=== PATIENT | male | born 1945 | race Caucasian/White ===

== ENCOUNTER 2023-03-22 15:06 | Outpatient (OUT) | payer MEDICARE, OTHER, SELFPAY ==
[2023-03-22 07:22] LABS: Basophils Percent Auto 0.4 % (0.2-2.0); Eosinophils Absolute Auto 0.2 10^3/uL (0.0-0.7); Eosinophils Percent Auto 3.1 % (0.9-7.0); Hematocrit 45.7 % (42.0-54.0); Hemoglobin 14.5 g/dL (14.0-18.0); Immature Granulocytes Abs Auto 0.01 10^3/uL (0.00-0.03); Immature Granulocytes Pct Auto 0.2 % (0.0-0.5); Lymphocytes Absolute Auto 2.6 10^3/uL (1.2-3.8); Lymphocytes Percent Auto 47.1 % (20.5-60.0); Mean Corpuscular HGB Conc 31.7 g/dL (29.9-35.2); Mean Corpuscular Hemoglobin 29.8 pg (25.9-34.0); Mean Platelet Volume 10.5 fL (9.5-13.5); Monocytes Absolute Auto 0.7 10^3/uL (0.3-0.8); Neutrophils Percent Auto 36.2 % (43.0-75.0); Platelet Count 127 10^3/uL (150-450); Red Blood Count 4.86 10^6/uL (4.70-6.10); Red Cell Distribution Width 13.2 % (11.0-15.0); White Blood Count 5.5 10^3/uL (4.0-11.0)
[2023-03-22 08:24] LABS: Alanine Aminotransferase 29 U/L (16-63); Albumin Level 3.9 g/dL (3.4-5.0); Alkaline Phosphatase 97 U/L (46-116); Anion Gap 8.1; Aspartate Amino Transferase 25 U/L (15-37); BUN Creatinine Ratio 24.8; Bilirubin Total 1.1 mg/dL (0.2-1.0); Calcium 9.7 mg/dL (8.5-10.1); Carbon Dioxide 31.5 mmol/L (21.0-32.0); Chloride 104 mmol/L (98-107); Estimated GFR (African America >60 (>=60); Estimated GFR (Non-African Ame >60 (>=60); Globulin 3.9 g/dL; Glucose 91 mg/dL (74-106); Potassium 3.6 mmol/L (3.5-5.1); Sodium 140 mmol/L (136-145); Total Protein 7.8 g/dL (6.4-8.2)
== END 2023-03-22 15:07 | disposition home or self-care (01) ==
LOC: LAB 03-25 15:07
PROVIDERS: PCP Family Medicine
DX: Z79.899 Other long term (current) drug therapy (principal)
CPT/HCPCS: 36415; 80053; 85025

== ENCOUNTER 2023-05-17 08:20 | Outpatient (OUT) | payer MEDICARE, OTHER, SELFPAY ==
--- NOTE | 2023-05-17 08:38 | CA_ITS ---
[facility] Test Date: 2023-05-31 Pat Name: BRITTA TORRES Department: Room: - Gender: Male Travel Pt: : 1945 Requested By: RACHEL ONTIVEORS Order Number: [id number] Reading MD: CEM CHANDLER Interpretive Statements Predominant rhythm is atrial flutter w/ variable AV block Tachycardia - max rate of 135 bpm Bradycardia - min rate of 43 bpm Ventricular ectopy - 19 total (<1% total) - 17 PVC - 2 couplets Patient triggered events: 1 - associated with symptoms of palpitations - associated with rate of 83 bpm Impression: Predominant rhythm is atrial flutter w/ variable AV block Fastest rate of 135 bpm and slowest rate of 43 bpm 17 PVC and 1 couplet No pauses Electronically Signed On 06-02-2023 12:03:44 EST by CEM CHANDLER
== END 2023-05-17 08:21 | disposition home or self-care (01) ==
LOC: CARD 08:20
PROVIDERS: PCP Family Medicine; Visit Provider Family Medicine
DX: I35.8 Other nonrheumatic aortic valve disorders (principal); I51.7 Cardiomegaly; R01.1 Cardiac murmur, unspecified; I48.11 Longstanding persistent atrial fibrillation; I25.10 Atherosclerotic heart disease of native coronary artery without angina pectoris; R00.2 Palpitations
CPT/HCPCS: 93242

== ENCOUNTER 2023-09-03 08:24 | Outpatient (OUT) | payer MEDICARE, OTHER, SELFPAY ==
--- OUTSIDE RECORDS SUMMARY | 2023-09-03 08:29 | XMS_ITS | CCD ---
Author Name Unknown Address [address] [place] [address] Organization [facility] Care Team Providers Care Consumer Loan Manager Name Role Phone Austen Ontiveros Primary Care Provider AUSTEN ONTIVEROS Primary Care Physician [phone] Austen Ontiveros MD Primary Care Provider Ishaan DOWLING Attending Unavailable NILL, Ishaan Pierre Attending Unavailable AUSTEN ONTIVEROS Referring Unavail able NILL, Ishaan Pierre Attending Unavailable HEMEYER ., DR RAMOS Primary Care Unavailable HEMEYER ., DR RAMOS Admitting Unavailable HEMEYER ., DR RAMOS Attending Unavailable NILL ., DR QUIROS Attending Unavailable HEMEYER ., DR RAMOS Primary Care Unavailable NILL ., DR QUIROS Admitting Unavailable NILL ., DR QUIROS Consulting Unavailable HEMEYER ., DR RAMOS Primary Care Unavailable REQUEST, DR ANTONIO LISTED Consulting Unavaila ble REQUEST, DR ANTONIO LISTED Admitting Unavaila ble REQUEST, DR ANTONIO LISTED Attending Unavaila ble NILL ., DR QUIROS Admitting Unavailable NILL ., DR QUIROS Attending Unavailable HEMEYER ., DR RAMOS Primary Care Unavailable NILL ., DR QUIROS Consulting Unavailable BHARAT, MARE Consulting Unavailable GEMBUS, YEHUDA Consulting Unavailable HEMEYER ., DR RAMOS Primary Care Unavailable HEMEYER ., DR RAMOS Admitting Unavailable HEMEYER ., DR RAMOS Attending Unavailable HEMEYER ., DR RAMOS Consulting Unavailable HEMEYER ., DR RAMOS Consulting Unavailable HEMEYER ., DR RAMOS Primary Care Unavailable HEMEYER ., DR RAMOS Admitting Unavailable HEMEYER ., DR RAMOS Attending Unavailable HEMEYER ., DR RAMOS Primary Care Unavailable HEMEYER ., DR RAMOS Admitting Unavailable HEMEYER ., DR RAMOS Attending Unavailable HEMEYER ., DR RAMOS Consulting Unavailable HEMEYER, AUSTEN Parker Attending Unavailable HEMEYER, EDWARD DINORAH [facility] UnavailEVER Murphy Attending Unavailable AMY SUBRAMANIAN Attending Unavailable EUGENEMIKE AUSTEN [facility] Referring Unavailable EVER GOLDBERG Attending Unavailable DHARMESH BAGLEY Referring Unavailable DHARMESH BAGLEY Attending Unavailable EUGENEMIKEAUSTEN [facility] UnavailEVER Murphy Referring Unavailable RAMA AUSTEN COPELAND [facility] UnavailAusten Campos MD Unavailable [phone] Austen Ontiveros MD Primary Care Provider Allergies Allergy Classification Reported Allergen(s) Allergy Type Date of Onset Reaction(s) Facility (15 sources) Chlorpheniramine / Pseudoephedrine; Translations: [CHLORPHENIRAMINE-P SEUDOEPHED] Drug Allergy 07-20-19 14 Unknown [facility] Work Phone: (17 sources) Niacin; Translations: [niacin] Drug Allergy 07-20-19 14 Unknown, Blushing, function (observable entity) [facility] Work Phone: (13 sources) rosuvastatin; Translations: [ROSUVASTATIN] Drug Allergy 08-23-19 22 Other: See Comments [facility] (15 sources) Sulfamethoxazole / Trimethoprim; Translations: [SULFAMETHOXAZOLE-T RIMETHOPRIM] Drug Allergy 07-20-19 14 Unknown [facility] Work Phone: (4 sources) Chlorpheniramine; Translations: [chlorpheniramine] Drug Allergy 12-27-19 23 Bladder retention of urine (observable entity) [facility] (3 sources) guaiFENesin / HYDROcodone / Pseudoephedrine; Translations: [guaifenesin/hydroc odone/pseudoephedri ne] Drug Allergy Bladder retention of urine (observable entity) [facility] [place] (4 sources) HMG-CoA reductase inhibitor; Translations: [statins] Drug allergy 12-27-19 23 Unknown (qualifier value) [facility] [place] (3 sources) Sulfamethoxazole; Translations: [sulfamethoxazole] Drug Allergy Constipation (disorder) [facility] [place] (4 sources) Trimethoprim; Translations: [trimethoprim] Drug Allergy 12-27-19 Unknown (qualifier value) [facility] [place] (1 source) Niacin; Translations: [Niaspan ER] Drug Allergy [facility] Repository (1 source) black walnut pollen extract Drug Allergy [facility] Repository (1 source) Chlorpheniramine Drug Allergy [facility] Repository (1 source) Chlorpheniramine / Pseudoephedrine Drug Allergy 05-25-20 13 [facility] Repository (1 source) Niacin Drug Allergy 05-25-20 13 [facility] Repository (1 source) Sulfamethoxazole / Trimethoprim Drug Allergy 05-25-20 13 [facility] Repository (1 source) Sulfonamides (Antibiotic) Drug allergy (disorder) 05-25-20 13 [facility] Repository (1 source) Trimethoprim Drug Allergy [facility] Rep[facility] (1 source) Niacin Drug Allergy 12-27-19 [facility] (1 source) Pseudoephedrine Drug Allergy 12-27-19 [facility] (1 source) Sulfamethoxazole Allergy to substance 12-27-19 [facility] Medications Current Medications Medication Drug Class(es) Dates Sig (Normalized) Sig (Original) amLODIPine 2.5 mg oral tablet (3 sources) Dihydropyridine Calcium Channel Beth Start: 09-29-2021 End: 01-18-2022 take 1 tablet by mouth once daily amLODIPine (NORVASC) 2.5 mg tablet Take 1 tablet by mouth once daily. 90 tablet 3 09/29/2021 01/18/2022 Discontinued (Discontinued by another Health Care Provider) Comment on above: Take 1 tablet by primo th once daily. apixaban 5 mg oral tablet (17 sources) Factor Xa Inhibitor Start: 11-24-2021 End: 03-04-2023 take 1 tablet by mouth in the morning Eliquis 5 MG tablet Take 5 mg by mouth in the morning and 5 mg before bedtime. 0 11/21/2022 Active Comment on above: Take 1 tablet by primo th twice daily. TAKE 1 TABLET BY PRIMO TH TWICE A DAY CHELATED IRON PO (1 source) CHELATED IRON PO Take by mouth. 0 Active fexofenadine hydrochloride 180 mg oral tablet (14 sources) Histamine-1 Receptor Antagonist Start: 09-22-2013 End: 06-07-2023 take 1 tablet by mouth once daily Sarah 180 mg Tab 1 TAB, Oral, Daily, Refills(s) 0, Allergy symptoms Start Date: 09/22/13 Status: Ordered Comment on above: Take 180 mg by mouth once daily. Fish Oils (3 sources) Start: 05-11-2022 take 1 capsule by mouth once daily Fish Oil 1200 mg oral capsule 1,200 mg = 1 cap(s), Oral, Daily, Refills(s) 0 Start Date: 05/11/22 Status: Ordered take 1 capsule by mouth once sally ly omega-3 (Fish Oil) 1200 MG capsule Take 1 capsule by mouth 1 (one) time each day at the same time. 0 Active metoprolol tartrate 25 mg oral tablet (1 source) beta-Adrenergic Beth End: 01-18-2022 take 1 tablet by mouth twice daily metoprolol tartrate, short acting, (LOPRESSOR) 25 mg tablet Take 25 mg by mouth twice daily. 0 01/18/2022 Discontinued Comment on above: Take 25 mg by mouth twice daily. montelukast 10 mg oral tablet (16 sources) Leukotriene Receptor Antagonist Start: 09-22-2013 End: 08-20-2023 take 1 tablet by mouth once daily montelukast (Singulair) 10 MG tablet Indications: Mild persistent asthma without complication (CMS/HCC) Take 1 tablet (10 mg) by mouth 1 (one) time each day at the same time. 90 tablet 1 02/21/2023 08/20/2023 Active Comment on above: Take 10 mg by mouth daily at bedtime. Multivitamins and Minerals (2 sources) Start: 09-22-2013 take 1 tablet by mouth once daily Multivitamins and Minerals 1 TAB, Oral, Daily, Refill(s) 0, Prophylaxis Start Date: 09/22/13 Status: Ordered perflutren lipid microspheres 1.3 mL in NaCl (PF) 0.9% 10 mL injection (DEFINITY) (9 sources) Start: 08-23-2021 End: 11-22-2022 perflutren lipid microspheres 1.3 mL in NaCl (PF) 0.9% 10 mL injection (DEFINITY) rosuvastatin calcium 20 mg oral tablet (16 sources) HMG-CoA Reductase Inhibitor Start: 02-21-2023 End: 08-20-2023 take 1 tablet by mouth at bedtime rosuvastatin (Crestor) 20 MG tablet Indications: Mixed dyslipidemia (CMS/HCC) Take 1 tablet (20 mg) by mouth at bedtime. 90 tablet 1 02/21/2023 08/20/2023 Active Start: 10-20-2022 take 1 tablet by primo th once daily rosuvastatin (CRESTOR) 10 mg tablet Take 1 tablet by mouth once daily. 90 tablet 3 10/20/2022 Active Start: 05-11-2022 take 1 tablet by primo th once daily rosuvastatin 20 mg Tab 20 mg = 1 tab(s), Oral, Daily, Refills(s) 0 Start Date: 05/11/22 Status: Ordered Start: 08-23-2021 take 1 tablet by primo th once daily rosuvastatin (CRESTOR) 10 mg tablet Take 1 tablet by mouth once daily. 0 08/23/2021 Active Comment on above: Take 1 tablet by primo once daily. 125 ml sodium chloride 9 mg/ml prefilled syringe (9 sources) Start: 2 End: 3 sodium chloride 0.9 % (flush) 10 mL (BD POSIFLUSH) tamsulosin hydrochloride 0.4 mg oral capsule (16 sources) alpha-Adrenergic Beth Start: 3 End: 4 take 1 capsule by mouth every twenty-four hours at bedtime tamsulosin (Flomax) 0.4 MG 24 hr capsule Indications: Benign prostatic hyperplasia with urinary hesitancy Take 1 capsule (0.4 mg) by mouth at bedtime. 90 capsule 1 02/21/2023 08/20/2023 Active Start: 05-11-2022 take 1 capsule [facility] Flomax 0.4 mg Cap 0.4 mg = 1 cap(s), Oral, Daily, Refills(s) 0 Start Date: 05/11/22 Status: Ordered Comment on above: Take 0.4 mg by mouth once daily. Vitamin D3 (2 sources) Start: 12-01-2014 Vitamin D3 2,0 00 International_Unit, Oral, Daily, Refills(s) 0 Start Date: 12/01/14 Status: Ordered Completed/Discontinued Medications Medication Drug Class(es) Dates Sig (Normalized) Sig (Original) acetaminophen 325 mg oral tablet (13 sources) Start: 06-29-2021 take 325-650 mg by mouth every four hours as needed acetaminophen (TYLENOL) 325 mg tablet Take 1-2 tablets by mouth every 4 hours as needed for mild to moderate pain 30 tablet 0 06/29/2021 Active Comment on above: Take 1-2 tablets by mouth every 4 hours as needed for mild to moderate pain aspirin 81 mg delayed release oral tablet (16 sources) Platelet Aggregation Inhibitor, Nonsteroidal Anti-inflammatory Drug Start: 06-07-2023 take 1 tablet by mouth every other day aspirin, enteric coated (ADULT LOW DOSE ASPIRIN) 81 mg EC tablet Take 1 tablet by mouth every other day. 0 06/07/2023 Active Start: 03-30-2021 End: 06-07-2023 take 1 tablet by mouth once daily aspirin, enteric coated (ADULT LOW DOSE ASPIRIN) 81 mg EC tablet Take 1 tablet by mouth once daily. 30 tablet 4 03/30/2021 06/07/2023 Discontinued Comment on above: Take 1 tablet by primo th once daily. Take 1 tablet by primo th every other day. bisoprolol fumarate 10 mg oral tablet (17 sources) beta-Adrenergic Beth Start: 10-20-2022 End: 03-04-2023 take 2 tablets by mouth once daily bisoprolol (ZEBETA) 10 mg tablet Take 2 tablets by mouth once daily. 180 tablet 3 03/04/2023 Active Start: 03-17-2022 End: 04-11-2022 take 2 tablets by mouth once daily bisoprolol (ZEBETA) 10 mg tablet TAKE 2 TABLETS BY MOUTH EVERY DAY 60 tablet 3 04/11/2022 Active Start: 03-01-2022 take 1.5 tablets by mouth once daily bisoprolol (ZEBETA) 10 mg tablet Take 1.5 tablets by mouth once daily. 90 tablet 3 03/01/2022 Active Start: 01-18-2022 End: 03-01-2022 take 1 tablet by mouth once daily bisoprolol (ZEBETA) 10 mg tablet Take 1 tablet by mouth once daily. 90 tablet 3 01/18/2022 03/01/2022 Discontinued Comment on above: Take 1 tablet by primo th once daily. Take 1.5 tablets by mouth once daily. TAKE 2 TABLETS BY MO UT EVERY DAY Take 2 tablets by mo [facility] once daily. Calcium Carbonate / vitamin D3 (13 sources) take 2000 [IU] by mouth twice daily CALCIUM CARBONATE/VITAMIN D3 (VITAMIN D-3 ORAL) Take 2,000 Units by mouth twice daily. 0 Active Comment on above: Take 2,000 Units by mouth twice daily. ferrous sulfate (7 sources) ferrous sulfate (IRON ORAL) Take by mouth. 0 Active Comment on above: Take by mouth. MULTIVIT &MINERALS/FERROUS FUM (MULTI VITAMIN ORAL) (13 sources) MULTIVIT &MINERALS/FERROUS FUM (MULTI VITAMIN ORAL) Take by mouth once daily. 0 Active Comment on above: Take by mouth once d aily. [place]-3 Fatty Acids-Vitamin E (FISH OIL) 1,000 mg cap (3 sources) take 1 capsule by mouth twice daily [place]-3 Fatty Acids-Vitamin E (FISH OIL) 1,000 mg cap Take 1 capsule by mouth twice daily. 0 Active Comment on above: Take 1 capsule by mo uth twice daily. [place]-3 Fatty Acids-Vitamin E 1,000 mg cap (10 sources) take 1 capsule by mouth twice daily [place]-3 Fatty Acids-Vitamin E 1,000 mg cap Take 1 capsule by mouth twice daily. 0 Active Comment on above: Take 1 capsule by mo uth twice daily. Problems Active Problems Problem Classification Problem Date Documented Da te Episodic/Chronic Adjustment disorders (1 source) Adjustment disorder with mixed emotional features; Translations: [Adjustment disorder with other symptoms] Onset: 04-08-2017 01-15-2023 Chronic Asthma (4 sources) Asthma; Translations: [Unspecified asthma, uncomplicated] Onset: 06-17-2022 09-22-2013 Chronic Cardiac dysrhythmias (20 sources) Chronic atrial fibrillation; Translations: [Chronic atrial fibrillation, unspecified] Onset: 05-18-2013 06-29-2021 Chronic Cataract (3 sources) Bilateral age-related nuclear cataracts; Translations: [Age-related nuclear cataract, bilateral] Onset: 05-30-2015 12-26-2022 Chronic Conduction disorders (3 sources) Right bundle branch block; Translations: [Unspecified right bundle-branch block] Onset: 12-26-2022 05-11-2022 Chronic Congestive heart failure; nonhypertensive (4 sources) Chronic diastolic heart failure; Translations: [Chronic diastolic (congestive) heart failure] Onset: 01-18-2022 Chronic Coronary atherosclerosis and other heart disease (20 sources) Coronary atherosclerosis; Translations: [Atherosclerotic heart disease of iroquois coronary artery with unspecified angina pectoris] Onset: 05-29-2021 06-29-2021 Chronic Disorders of lipid metabolism (20 sources) Hyperlipidemia; Translations: [Hyperlipidemia, unspecified] Onset: 05-29-2021 05-29-2021 Chronic Essential hypertension (20 sources) Hypertensive disorder; Translations: [Essential (primary) hypertension] Onset: 11-23-2013 06-29-2021 Chronic Heart valve disorders (20 sources) Aortic valve stenosis; Translations: [Nonrheumatic aortic (valve) stenosis] Onset: 05-29-2021 06-29-2021 Chronic Hyperplasia of prostate (18 sources) Lower urinary tract symptoms due to benign prostatic hypertrophy; Translations: [Benign prostatic hyperplasia with lower urinary tract symptoms] Onset: 04-18-2018 05-29-2021 Chronic Nutritional deficiencies (3 sources) Vitamin D deficiency; Translations: [Vitamin D deficiency, unspecified] Onset: 12-26-2022 05-11-2022 Chronic Osteoarthritis (2 sources) Degenerative joint disease involving multiple joints; Translations: [Polyosteoarthritis, unspecified] Onset: 05-28-2016 12-26-2022 Chronic Other aftercare (1 source) Patient encounter status; Translations: [Other intermediate (current) drug therapy] Episodic Other and ill-defined heart disease (3 sources) Bilateral enlargement of atria; Translations: [Cardiomegaly] Onset: 12-26-2022 05-11-2022 Chronic Other circulatory disease (1 source) Disorder of carotid artery; Translations: [Disorder of arteries and arterioles, unspecified] Onset: 12-26-2022 12-26-2022 Chronic Other eye disorders (1 source) Vitreous degeneration of right eye; Translations: [Vitreous degeneration, right eye] Onset: 12-26-2022 12-26-2022 Chronic Other hematologic conditions (4 sources) Personal history of diseases of the blood and blood-forming organs and certain disorders involving the immune mechanism; Translations: [PERS HX DZ BLD/BLD-FRM ORG IMMN MCH] Onset: 10-09-2022 Episodic Other lower respiratory disease (3 sources) Post-inflammatory pulmonary fibrosis; Translations: [Pulmonary fibrosis, unspecified] Onset: 05-28-2016 05-11-2022 Chronic Other lower respiratory disease (3 sources) Pulmonary granuloma; Translations: [Pulmonary fibrosis, unspecified] Onset: 12-26-2022 05-11-2022 Chronic Other lower respiratory disease (1 source) Dyspnea; Translations: [Other forms of dyspnea] 08-09-2023 Episodic Other lower respiratory disease (1 source) Other forms of dyspnea; Translations: [Other forms of dyspnea] Onset: 08-09-2023 Episodic Pulmonary heart disease (19 sources) Pulmonary hypertension; Translations: [Pulmonary hypertension, unspecified] Onset: 05-18-2013 05-18-2013 Chronic Spondylosis; intervertebral disc disorders; other back problems (1 source) Prolapsed lumbar intervertebral disc; Translations: [Other intervertebral disc displacement, lumbar region] Onset: 12-26-2022 12-26-2022 Chronic Unclassified (2 sources) Body mass index 20-24 - normal 05-22-2022 Unclassified (2 sources) Drug therapy finding 05-11-2022 Unclassified (2 sources) Polypharmacy 05-11-2022 Unclassified (1 source) CONTACT W/AND (SUSP) EXPOS COVID-19; Translations: [CONTACT W/AND (SUSP) EXPOS COVID-19] Onset: 06-16-2022 Past or Other Problems Problem Classification Problem Date Documented Da te Episodic/Chronic Acute and unspecified renal failure (13 sources) Acute injury of kidney; Translations: [Acute kidney failure, unspecified] Onset: 06-22-2021 06-29-2021 Episodic Administrative/social admission (20 sources) Discharge status; Translations: [Encounter for administrative examinations, unspecified] Onset: 05-29-2021 06-28-2021 Episodic Anxiety disorders (3 sources) Mixed anxiety and depressive disorder; Translations: [Adjustment disorder with mixed anxiety and depressed mood] Onset: 12-26-2022 Resolved: 01-02-2023 05-11-2022 Chronic Deficiency and other anemia (4 sources) Iron deficiency anemia, unspecified; Translations: [IRON DEFICIENCY ANEMIA UNSPECIFIED] Onset: 06-13-2022 Episodic Heart valve disorders (1 source) Heart murmur; Translations: [Cardiac murmur, unspecified] Onset: 12-26-2022 12-26-2022 Episodic Mood disorders (1 source) Mood disorders Onset: 01-02-2023 01-02-2023 Nutritional deficiencies (4 sources) Iron deficiency; Translations: [IRON DEFICIENCY] Onset: 04-25-2022 Episodic Other aftercare (1 source) prison (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 anticoagulants; Translations: [CAMPUS SECURITY DIRECTOR CURRNT USE ANTICOAGULANTS] Onset: 06-17-2022 Episodic Other aftercare (1 source) prison (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 aspirin; Translations: [SNF CURRENT USE OF ASPIRIN] Onset: 06-17-2022 Episodic Other aftercare (1 source) Other intermediate (current) drug therapy; Translations: [OTH SNF CURRENT DRUG THERAPY] Onset: 06-17-2022 Episodic Other aftercare (1 source) Long-term current use of anticoagulant; Translations: [prison (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 anticoagulants] Onset: 05-28-2016 01-15-2023 Episodic Other aftercare (1 source) Polypharmacy ; Translations: [Other tank terminal gauger (current) drug therapy] Onset: 08-11-2020 01-15-2023 Episodic Other bone disease and musculoskeletal deformities (1 source) Disorder of bone; Translations: [Other specified disorders of bone density and structure, right thigh] Onset: 12-26-2022 12-26-2022 Episodic Other lower respiratory disease (13 sources) Dyspnea on exertion; Translations: [Dyspnea, unspecified] Onset: 03-30-2021 03-30-2021 Episodic Other lower respiratory disease (3 sources) Nodule of lung; Translations: [Solitary pulmonary nodule] Onset: 12-26-2022 05-11-2022 Episodic Other nervous system disorders (13 sources) Postoperative pain ; Translations: [Other acute postprocedural pain] Onset: 06-19-2021 06-29-2021 Episodic Residual codes; unclassified (14 sources) History of cardioversion; Translations: [Other specified postprocedural states] Onset: 05-29-2021 05-29-2021 Episodic Residual codes; unclassified (1 source) Family history of coronary arteriosclerosis; Translations: [Family history of ischemic heart disease and other diseases of the circulatory system] Onset: 05-28-2016 01-15-2023 Episodic Residual codes; unclassified (2 sources) Other specified health status; Translations: [Other specified conditions influencing health status] Onset: 05-28-2016 01-15-2023 Episodic Results Test Name Value Interpretation Reference Range Facility [facility] NT-PROBNP [id number]-MCNCon 0 08-09-2023 Interpretation and review of laboratory results Abnormal [facility] Natriuretic peptide B (Bld) [Mass/Vol] 1619 pg/mL High NINF - 450 pg/mL [facility] Specimen Type: BLOOD SPECIMEN Ordering Facility: [facility] Address: [address] [place] [address] Original Ordering Provider: EVER SPRAGUE [facility] CNOVon 08-09-2023 CNOV Office Visit (CARDAV ) -------- BRITTA TORRES ([id number]) 1945 M Date Time Provider Department 08/09/23 9:20 AM EVER GOLDBERG During your visit today, we recorded the following information about you: Pulse Respiration Blood pressure Weight 62/minute 18/minute 106/64 84.4 kg Height 1.854 m Ever Goldberg V, MD 08/09/2023 10:03 AM Signed Referring Physician: No referring provider defined for this encounter. Primary Care Physician: Austen Ontiveros MD, MD Britta Torres is a 78 year old male that presents today for followup of S/p CABG AVR TVr 2020 for ostial LM , LAD and Cx disease S/p LA clipping PCI Persistent a fib HLD still on 10 mg crestor : labs being done by PCP Pt not aware of his LDL Feels good Exercise : yes No recent echo [ last one 2021 ] Elevated pro bnp in the past ; pulmonary hypertension suspect due to diastolic CHF chronic vs pulmonary vein stenosis Mild noted CT 2013 He is back on low dose asa every other day [ directed by his PCP ] Clinical PI by exam Non smoker but exposure to second hand smoker for years No history of lung disease ASSESSMENT/PLAN: 1. S/P AVR - ICD9: V43.3, ICD10: Z95.2 (primary diagnosis) Echo in [facility] Clinically no stenosis - ECHO 2. 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 Pulmonary hypertension (HCC) - ICD9: 416.8, ICD10: I27.20 Echo ? PV stenosis history of PVI x 2 - ECHO 4. Chronic a-fib (HCC) - ICD9: 427.31, ICD10: I48.20 Per ep Rate is controlled 5. Pure hypercholesterolemia - ICD9: 272.0, ICD10: E78.00 Pending - LIPID PANEL, NONFASTING 6. Other forms of dyspnea - ICD9: 786.09, ICD10: R06.09 - NT PRO BNP Ever Goldberg MD Current Medications: Current Outpatient Medications Medication Sig aspirin, enteric coated (ADULT LOW DOSE ASPIRIN) 81 mg EC tablet Take 1 tablet by mouth every other day. apixaban (ELIQUIS) 5 mg tab(s) Take 1 tablet by mouth twice daily. bisoprolol (ZEBETA) 10 mg tablet Take 2 tablets by mouth once daily. rosuvastatin (CRESTOR) 10 mg tablet Take 1 tablet by mouth once daily. ferrous sulfate (IRON ORAL) Take by mouth. tamsulosin HCl (FLOMAX ORAL) Take 0.4 mg by mouth once daily. CALCIUM CARBONATE/VITAMIN D3 (VITAMIN D-3 ORAL) Take 2,000 Units by mouth twice daily. montelukast 10 mg tablet Take 10 mg by mouth daily at bedtime. MULTIVIT ANDMINERALS/FERROUS FUM (MULTI VITAMIN ORAL) Take by mouth once daily. [place]-3 Fatty Acids-Vitamin E 1,000 mg cap Take 1 capsule by mouth twice daily. acetaminophen (TYLENOL) 325 mg tablet Take 1-2 tablets by mouth every 4 hours as needed for mild to moderate pain No current facility-administered medications for this visit. PHYSICAL EXAMINATION: Vital Signs: Blood Pressure 106/64 (BP Site: Left Arm, BP Position: Sitting) Pulse 62 Respiration 18 Height 185.4 cm (6' 1 ) Weight 84.4 kg (186 lb 1.1 oz) Oxygen Saturation 95% Body Mass Index 24.55 kg/m? Body mass index is 24.55 kg/m?. GENERAL: Alert, oriented., Well appearing. No jaundice, anemia, clubbing, or cyanosis. HEENT: no lymphadenopathy. NECK: no JVD, No masses, or thyromegaly. Good carotid upstrokes. no carotid bruit. No lymphadenopathy. CARDIAC: no significant ; intermittent PI split S2 CHEST: Chest clear to auscultation. ABDOMEN: Soft, nontender, with no obvious organomegaly or masses. No epigastric bruit. EDEMA: trace edema PERIPHERAL PULSES: 2+ SKIN: warm peripheries, no rash. NEURO: no focal neurological deficit ECG today: see epic result Allergies: ALLERGIES Allergen Reactions Deconamine [Chlorph* Unknown Niaspan [Niacin] Unknown Sulfamethoxazole-Tr* Unknown Social History: TOBACCO: see epic ALCOHOL: see epic ROS: Card: See present history. Pulm:No cough or sputum production Gastro:no bowel changes. GenUr:no urinary symptoms. Endo:no chronic fatigue, significant weight loss/gain, heat/cold intolerance. Neuro:no focal weakness, focal sensory loss, headache, visual changes, seizure activity, ataxia, speech/language loss. Rheum:no joint swelling, back pain, knee pain, hip pain, or neck pain. Infect:no fevers, chills, rigors or night sweats. Skin:no rash Heme:no bruising LIPIDS: Triglyceride (mg/dL) Date Value 01/18/2022 60 Cholesterol, Total (mg/dL) Date Value 01/18/2022 166 HDL Cholesterol (mg/dL) Date Value 01/18/2022 55 LDL Cholesterol (mg/dL) Date Value 01/18/2022 99 Ever Goldberg MD Allergies As of Date: 08/09/2023 Noted Allergy Reaction DECONAMINE (CHLORPHENIRAMINE-PSEU*0 07/20/2013 16 - Unknown NIASPAN (NIACIN) 07/20/2013 16 - Unknown SULFAMETHOXAZOLE-TRIMETH OPRIM 07/20/2013 16 - Unknown Date Reviewed: 02 (more content not included)... Normal [facility] LIPID PANEL, NONFASTINGon Cholesterol [Mass/Vol] 152 mg/dL Normal <200 [facility] Comment on above: Order Comment: Speci men Type: BLOOD SPECIMEN Ordering Facility: [facility] Address: [address] [place] [address] Result Comment: <200 mg/dL, Desirable 200-239 mg/dL, Borderline high >239 mg/dL, High Performed By: #### L IPNF, 88778-6 #### [facility] CLIA [id number] [facility] [place] [address] [facility] HDL CHOLESTEROL, NF 57 mg/dL Normal >39 [facility] Comment on above: Order Comment: [facility] Type: BLOOD SPECIMEN Ordering Facility: [facility] Address: [address] [place] [address] Result Comment: 40-5 9 mg/dL, Acceptable >59 mg/dL, High: Negative risk factor for coronary heart disease <40 mg/dL, Low: Positive risk factor for coronary heart disease Performed By: #### L IPNF, 28900-0 #### [facility] CLIA [id number] [facility] [place] [address] [facility] LDL CHOLESTEROL, NF 82 mg/dL Normal <100 [facility] Comment on above: Order Comment: [facility] Type: BLOOD SPECIMEN Ordering Facility: [facility] Address: [address] [place] [address] Result Comment: <100 mg/dL, Optimal 100-129 mg/dL, Near optimal/above optimal 130-159 mg/dL, Borderline high 160-189 mg/dL, High >189 mg/dL, Very high Secondary prevention optimal LDL Cholesterol levels are recommended to be < 70 mg/dL Performed By: #### L IPNF, 30697-1 #### [facility] CLIA [id number] [facility] [place], [place] [id number] [place] [address] OF [place] LDL/HDL RATIO, NF 1.44 mg/dL Normal <2.54 [facility] Comment on above: Order Comment: [facility] Type: BLOOD SPECIMEN Ordering Facility: [facility] Address: [address] [place] [address] Result Comment: Ammon geiger: 1. National Cholesterol Education Program ATP III Guideline At-A-Glance Quick Desk Reference: National Heart, Lung, and Blood [place]. National Institutes of Health. 2001: NIH Publication No. 01-3305. 2. An International Atherosclerosis Society position paper: global recommendations for the management of dyslipidemia: executive summary, Atherosclerosis. 2014: 232(2):410-413. Performed By: #### L IPNF, 36777-8 #### [facility] CLIA [id number] [address] [place] [address] [place] NON HDL CHOL, NF 95 mg/dL Normal <130 [facility] Comment on above: Order Comment: Speci men Type: BLOOD SPECIMEN Ordering Facility: [facility] Address: [address] [place] [address] Result Comment: <130 mg/dL, Optimal 130-159 mg/dL, Near optimal/above optimal 160-189 mg/dL, Borderline high 190-219 mg/dL, High >219 mg/dL, Very high Secondary prevention optimal non HDL Cholesterol levels are recommended to be <100 mg/dL Performed By: #### L IPNF, 99701-5 #### [facility] CLIA [id number] [place] [address] [place] T CHOL/HDL RATIO NF 2.67 mg/dL Normal <5.10 [facility] Comment on above: Order Comment: [facility] Type: BLOOD SPECIMEN Ordering Facility: [facility] Address: [address] [place] [address] Performed By: #### L IPNF, 75725-3 #### [facility] CLIA [id number] [address] [place] [address] [place] TRIGLYCERIDES, NF 66 mg/dL Normal <150 [facility] Comment on above: Order Comment: Speci men Type: BLOOD SPECIMEN Ordering Facility: [facility] Address: [address] [place] [address] Result Comment: <150 mg/dL, Normal 150-199 mg/dL, Borderline high 200-499 mg/dL, High >499 mg/dL, Very high Performed By: #### L IPNF, 86930-1 #### [facility] CLIA [id number] [address] [place] [address] [place] VLDL CHOLESTEROL, NF 13 mg/dL Normal <30 [facility] Comment on above: Order Comment: Speci men Type: BLOOD SPECIMEN Ordering Facility: [facility] Address: [address] [place] [address] Performed By: #### L IP, 83036-7 #### [facility] CLIA [id number] [facility]. [address] STATES OF [facility] Cholesterol [Mass/Vol] 152 mg/dL <200 mg/dL [facility] HDL Cholesterol, Nonfasting 57 mg/dL >39 mg/dL [facility] LDL Cholesterol, Nonfasting 82 mg/dL <100 mg/dL [facility] LDL/HDL Ratio, Nonfasting 1.44 mg/dL <2.54 mg/dL [facility] Non HDL Cholesterol, Nonfasting 95 mg/dL <130 mg/dL [facility] Total Chol/HDL Ratio, Nonfasting 2.67 mg/dL <5.10 mg/dL [facility] Triglycerides, Nonfasting 66 mg/dL <150 mg/dL [facility] VLDL Cholesterol, Nonfasting 13 mg/dL <30 mg/dL [facility] NT PRO BNPon 08-09-2023 Natriuretic peptide.B prohormone N-Terminal [Mass/Vol] 1619 pg/mL High <450 pg/mL [facility] NT-proBNP SerPl-mCncon 08-09 Natriuretic peptide.B prohormone N-Terminal [Mass/Vol] 1619 pg/mL High <450 [facility] Comment on above: Order Comment: Speci men Type: BLOOD SPECIMEN Ordering Facility: [facility] Address: [address] [place] [address] Performed By: #### L IP, 23121-8 #### [facility] CLIA [id number] [facility] [place] [id number] [place] OF [facility] CNOVon 06-07-2023 CNOV Office Visit (CAEPAV ) -------- BRITTA TORRES ([id number]) 1945 Date Time Provider Department 06/07/23 9:00 AM AMY SUBRAMANIAN During your visit today, we recorded the following information about you: Pulse Blood pressure Weight Height 86/minute 150/80 84.4 kg 1.867 m Amy Subramanian APRN.CNP 06/07/2023 9:28 AM Signed [facility] Department of Cardiovascular Medicine SECTION OF CARDIAC PACING and ELECTROPHYSIOLOGY OUTPATIENT VISIT DATE June 07, 2023 OUTPATIENT VISIT TYPE ESTABLISHED PRIMARY CARE PHYSICIAN: Austen Ontiveros MD [address] [place] [address] CHIEF COMPLAINT: follow up permanent atrial fibrillation HISTORY OF PRESENT ILLNESS: Mr. Torres is a 78 year old male who presents today for followed by Dr. Goldberg, Dr. Bagley for permanent atrial fibrillation (rate control strategy, [id number]: 2%), known CAD (: s/p CABG x3, PECK to LAD, SVG to PDA, left radial artery to the obtuse marginal 1, TV repair with a ring, AVR with austen inspiris valve, left atrial appendage clip, cryo maze), preserved LV systolic heart function (echo: 2021: EF 56%, pulmonary hypertension RVSP 49mmHg, LA severely dilated), Other PMH of hypertension, hyperlipidemia, intermediate anticoagulation, anemia. 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) 06/2021 s/p CABG x3, PECK to LAD, SVG to PDA, left radial artery to obtuse marginal HTN (hypertension) Hyperlipidemia S/P AVR 06/2021 s/p AVR #25 inspiris valve S/P left atrial appendage ligation 06/2021 with bypass surgery S/P Maze operation for atrial fibrillation 06/2021 s/p maze with cryo with bypass surgery S/P tricuspid valve repair 06/2021 annuloplasty band PAST SURGICAL HISTORY Procedure Laterality Date AFIB ABLATION/PULM VEIN ISOLATION 2006 Chanel APPENDECTOMY age 9 ATRIAL FIBRILLATION/FLUTTER ABLATION 12/09/13 CARDIOVERSION 11/02/13, 12/01/2014 PAST SURGICAL HISTORY OF 10/2013 trigger finger release REMOVAL SKIN LESION 0.6-1.0 CM 2004 head JEREMY (TRANSESOPHAGEAL ECHO) 2006 TONSILLECTOMY AND ADENOIDECTOMY SOCIAL HISTORY Social History Tobacco Use Smoking status: Never Smokeless tobacco: Never Substance Use Topics Alcohol use: Yes Comment: rare beer after mowing lawn in summer Drug use: No FAMILY HISTORY Problem Relation Age of Onset Stroke Mother Cancer Father Coronary Artery Disease Sister GI Sister Hypertension Sister Stroke Paternal Grandmother ALLERGIES: ALLERGIES Allergen Reactions Deconamine [Chlorph* Unknown Niaspan [Niacin] Unknown Rosuvastatin Other: See Comments Constipation Sulfamethoxazole-Tr* Unknown MEDICATIONS: apixaban (ELIQUIS) 5 mg tab(s) Take 1 tablet by mouth twice daily. bisoprolol (ZEBETA) 10 mg tablet Take 2 tablets by mouth once daily. rosuvastatin (CRESTOR) 10 mg tablet Take 1 tablet by mouth once daily. ferrous sulfate (IRON ORAL) Take by mouth. acetaminophen (TYLENOL) 325 mg tablet Take 1-2 tablets by mouth every 4 hours as needed for mild to moderate pain aspirin, enteric coated (ADULT LOW DOSE ASPIRIN) 81 mg EC tablet Take 1 tablet by mouth once daily. tamsulosin HCl (FLOMAX ORAL) Take 0.4 mg by mouth once daily. CALCIUM CARBONATE/VITAMIN D3 (VITAMIN D-3 ORAL) Take 2,000 Units by mouth twice daily. fexofenadine (SARAH) 180 mg tablet Take 180 mg by mouth once daily. montelukast 10 mg tablet Take 10 mg by mouth daily at bedtime. MULTIVIT ANDMINERALS/FERROUS FUM (MULTI VITAMIN ORAL) Take by mouth once daily. [place]-3 Fatty Acids-Vitamin E 1,000 mg cap Take 1 capsule by mouth twice daily. REVIEW OF SYSTEMS: GENERAL: Negative for: Weight loss or gain, Fever or Chills, Weakness and Sleep difficulties. NECK: Negative for: Swelling, Pain, Stiffness RESPIRATORY: Negative for: Cough, Blood in Sputum, Shortness of breath, Wheezing, Apnea GASTROINTESTINAL: Negative for: Trouble swallowing, Heartburn, Change in bowel habits, Blood in stool, Dark black stools MUSCULOSKELETAL: Negtive for: Muscle or vania (more content not included)... Normal [facility] OUD52rk 06-07-2023 ECG01 Ventricular Rate : 8 6 BPM QRS Duration : 144 ms Q-T Interval : 382 ms QTC Calculation(Bazett) : 457 ms Calculated R [place] : 58 degrees Calculated T [place] : 35 degrees ATRIAL FIBRILLATION COMPLETE RIGHT BUNDLE BRANCH BLOCK ABNORMAL ECG Confirmed by JULIO AVILES MD ([id number]) on 06/11/2023 7:02:50 PM NAME : BRITTA TORRES PID : [id number] : 1945 Gender : Male Race : ORD : Procedure Date : Jun 07 2023 08:41:44 Edit Date : Jun 11 2023 19:02:51 Diagnosis: ATRIAL FIBRILLATION COMPLETE RIGHT BUNDLE BRANCH BLOCK ABNORMAL ECG Confirmed by JULIO AVILES MD ([id number]) on 06/11/2023 7:02:50 PM Test Reason : Location : 192 : AVCRD Overread By : JULIO AVILES MD Edited By : JULIO AVILES MD Referred By : , Acquired by : , Normal [facility] CNOVon 02-11-2023 CNOV Office Visit (CARDAV ) -------- BRITTA TORRES ([id number]) 1945 M Date Time Provider Department 02/11/23 9:40 AM EVER GOLDBERG During your visit today, we recorded the following information about you: Pulse Blood pressure Weight Height 80/minute 142/62 81.6 kg 1.867 m Ever Goldberg V, MD 02/11/2023 10:01 AM Signed Referring Physician: Ever Goldberg [address] [facility] [place] [address] Primary Care Physician: Austen Ontiveros MD Britta Torres is a 77 year old male that presents today for followup S/p CABG AVR TVr 2020 [ ostial LM and LAD and ostial cx disease Rate control atrial fibrillation HLD on statin Anemia : stopped asa by pcp : due to blood in stool On DOAC for A fib Feels good Will have labs with PCP Takes iron pills He thought he was taking 20 mg crestor but Rx was for 10 mg ASSESSMENT/PLAN: 1. S/P AVR - ICD9: V43.3, ICD10: Z95.2 (primary diagnosis) Noted Echo reviewed Clinical followup for now AVR intact by exam no significant systolic murmur Diastolic short murmur suspect PI Split S2 due to RBBB 2. 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 Pulmonary hypertension (HCC) - ICD9: 416.8, ICD10: I27.20 Stable Echo periodically 4. Chronic a-fib (HCC) - ICD9: 427.31, ICD10: I48.20 Rate controlled 5. Pure hypercholesterolemia - ICD9: 272.0, ICD10: E78.00 Pending See above Ever Goldberg MD Current Medications: Current Outpatient Medications Medication Sig ELIQUIS 5 mg tab(s) TAKE 1 TABLET BY MOUTH TWICE A DAY rosuvastatin (CRESTOR) 10 mg tablet Take 1 tablet by mouth once daily. bisoprolol (ZEBETA) 10 mg tablet Take 2 tablets by mouth once daily. ferrous sulfate (IRON ORAL) Take by mouth. tamsulosin HCl (FLOMAX ORAL) Take 0.4 mg by mouth once daily. CALCIUM CARBONATE/VITAMIN D3 (VITAMIN D-3 ORAL) Take 2,000 Units by mouth twice daily. montelukast 10 mg tablet Take 10 mg by mouth daily at bedtime. MULTIVIT ANDMINERALS/FERROUS FUM (MULTI VITAMIN ORAL) Take by mouth once daily. [place]-3 Fatty Acids-Vitamin E 1,000 mg cap Take 1 capsule by mouth twice daily. acetaminophen (TYLENOL) 325 mg tablet Take 1-2 tablets by mouth every 4 hours as needed for mild to moderate pain aspirin, enteric coated (ADULT LOW DOSE ASPIRIN) 81 mg EC tablet Take 1 tablet by mouth once daily. fexofenadine (SARAH) 180 mg tablet Take 180 mg by mouth once daily. No current facility-administered medications for this visit. PHYSICAL EXAMINATION: Vital Signs: Blood Pressure 142/62 (BP Site: Left Arm, BP Position: Sitting, BP Cuff Size: Regular Adult) Pulse 80 Height 186.7 cm (6' 1.5 ) Weight 81.6 kg (180 lb) Body Mass Index 23.42 kg/m? Body mass index is 23.42 kg/m?. GENERAL: Alert, oriented., Well appearing. No jaundice, anemia, clubbing, or cyanosis. HEENT: no lymphadenopathy. NECK: No JVD, masses, or thyromegaly. Good carotid upstrokes. No carotid bruit. No lymphadenopathy. CARDIAC: PI split S2 CHEST: Chest clear to auscultation. ABDOMEN: Soft, nontender, with no obvious organomegaly or masses. No epigastric bruit. EDEMA: No edema PERIPHERAL PULSES: 2+ SKIN: warm peripheries, no rash. 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 ([facility]) 06/2021 s/p CABG x3, PECK to LAD, SVG to PDA, left radial artery to obtuse marginal HTN (hypertension) Hyperlipidemia S/P AVR 06/2021 s/p AVR #25 inspiris valve S/P left atrial appendage ligation 06/2021 with bypass surgery S/P Maze operation for atrial fibrillation 06/2021 s/p maze with cryo with bypass surgery S/P tricuspid valve repair 06/2021 annuloplasty band PAST SURGICAL HISTORY Procedure Laterality Date AFIB ABLATION/PULM VEIN ISOLATION 2006 Chanel APPENDECTOMY age 9 ATRIAL FIBRILLATION/FLUTTER ABLATION 12/09/13 CARDIOVERSION 11/02/13, 12/01/2014 PAST SURGICAL HISTORY OF 10/2013 trigger finger release REMOVAL SKIN LESION 0.6-1.0 CM 2005 head JEREMY (TRANSESOPHAGEAL ECHO) 2007 TONSILLECTOMY AND ADENOIDECTOMY Do you need any refills today? Allergies: ALLERGIES Allergen Reactions Deconamine [Chlorph* Unknown Niaspan [Niacin] Unknown Rosuvastatin Other: See Comments Constipation Sulfamethoxazole-Tr* Unknown Social History: TOBACCO: Tobacco Use: Never ALCOHOL: No alcohol consumption ROS: Card: See present history. Pulm:No cough or sputum production Gastro:no bowel changes. GenUr:no (more content not included)... Normal [facility] FERRITINon 10-09-2022 Ferritin [Mass/Vol] 83.0 ng/mL Normal 26.0-388.0 [facility] Comment on above: Performed By: #### F ETIBC, FERR #### [facility] [address] [place] [address] Dr. Tobias Murrieta IRON AND TIBCon 10-09-2022 % SATURATION 19.0 % Normal [facility] Comment on above: Performed By: #### F ETIBC, FERR #### [facility] [address] [place] [address] [address] Tobias Murrieta Iron [Mass/Vol] 64.0 ug/dL Critically low 65.0-175.0 [facility] Comment on above: Performed By: #### F ETIBC, FERR #### [facility] [address] [place] [address] Dr. Tobias Murrieta TIBC DIRECT 337.0 ug/dL Normal 250.0-450.0 [facility] Comment on above: Performed By: #### F ETIBC, FERR #### [facility] [address] [place] [address] Dr. Tobias Murrieta CNOVon 08-31-2022 CNOV Office Visit (CAEPAV ) -------- BRITTA TORRES ([id number]) 1945 M Date Time Provider Department 08/31/22 8:40 AM DHARMESH BAGLEY CAEPAV During your visit today, we recorded the following information about you: Pulse Blood pressure Weight 112/minute 152/76 83.2 kg Referring Provider: DHARMESH BAGLEY [[id number]] Allergies As of Date: 08/31/2022 Noted Allergy Reaction DECONAMINE (CHLORPHENIRAMINE-PSEU*0 07/20/2013 16 - Unknown NIASPAN (NIACIN) 07/20/2013 16 - Unknown ROSUVASTATIN 08/23/2021 14 - Other: See Comments Comments: Constipation SULFAMETHOXAZOLE-TRIMETH OPRIM 07/20/2013 16 - Unknown Date Reviewed: 08/31/2022 Reviewed by: Lea Curry LPN - Fully Assessed Reason for Visit: Follow Up [171] Primary Visit Diagnosis:Chronic atrial fibrillation (HCC) [I48.20] Order(s):ECG COMPLETE [ECG01] Order #: [id number] FUTURE ECG COMPLETE [ECG01] Order #: [id number]. #:[id number] Prescriptions as of 08/31/2022 - ferrous sulfate (IRON ORAL) Take by mouth. - bisoprolol (ZEBETA) 10 mg tablet TAKE 2 TABLETS BY MOUTH EVERY DAY - apixaban (ELIQUIS) 5 mg tab(s) Take 1 tablet by mouth twice daily. - rosuvastatin (CRESTOR) 10 mg tablet Take 1 tablet by mouth once daily. - acetaminophen (TYLENOL) 325 mg tablet Take 1-2 tablets by mouth every 4 hours as needed for mild to moderate pain - aspirin, enteric coated (ADULT LOW DOSE ASPIRIN) 81 mg EC tablet Take 1 tablet by mouth once daily. - tamsulosin HCl (FLOMAX ORAL) Take 0.4 mg by mouth once daily. - CALCIUM CARBONATE/VITAMIN D3 (VITAMIN D-3 ORAL) Take 2,000 Units by mouth twice daily. - fexofenadine (SARAH) 180 mg tablet Take 180 mg by mouth once daily. - montelukast 10 mg tablet Take 10 mg by mouth daily at bedtime. - MULTIVIT ANDMINERALS/FERROUS FUM (MULTI VITAMIN ORAL) Take by mouth once daily. - [place]-3 Fatty Acids-Vitamin E 1,000 mg cap Take 1 capsule by mouth twice daily. Facility-Administered Medications as of 08/31/2022 - perflutren lipid microspheres 1.3 mL in NaCl (PF) 0.9% 10 mL injection (DEFINITY) - sodium chloride 0.9 % (flush) 10 mL (BD POSIFLUSH) Problem List As Of Date 08/31/2022 Noted Resolved Chronic a-fib (HCC) [I48.20] 05/18/2013 Pulmonary hypertension [I27.20] 05/18/2013 HTN (hypertension) [I10] 11/23/2013 SRIVASTAVA (dyspnea on exertion) [R06.09] 03/30/2021 Lower urinary tract symptoms due to benign pros*06/12/2020 Discharge planning issues [Z02.9] 05/29/2021 Preop testing [Z01.818] 05/29/2021 06/28/2021 Aortic valve stenosis [I35.0] 05/29/2021 Tricuspid regurgitation [I07.1] 05/29/2021 Coronary artery disease involving iroquois meredith*05/29/2021 History of cardioversion [Z92.89] 05/29/2021 Hyperlipidemia [E78.5] 05/29/2021 Atelectasis [J98.11] 06/19/2021 06/28/2021 Postoperative hypotension [I95.81] 06/19/2021 06/21/2021 Cardiac insufficiency following cardiac surgery*06/19/2021 06/26/2021 Postoperative pain [G89.18] 06/19/2021 Stress hyperglycemia [R73.9] 06/20/2021 06/26/2021 Hypervolemia [E87.70] 06/20/2021 06/26/2021 FELISA (acute kidney injury) (HCC) [N17.9] 06/22/2021 Encounter for support and coordination of trans*06/26/2021 Encounter Status:Closed by DHARMESH BAGLEY on 08/31/22 Normal [facility] QPG80at 08-31-2022 ECG01 Ventricular Rate : 8 3 BPM Atrial Rate : 227 BPM QRS Duration : 140 ms Q-T Interval : 428 ms QTC Calculation(Bazett) : 502 ms Calculated R [place] : 61 degrees Calculated T [place] : -4 degrees ATRIAL FIBRILLATION/FLUTTER COMPLETE RIGHT BUNDLE BRANCH BLOCK ABNORMAL ECG Confirmed by ARLENE ELLISON MD ([id number]) on 08/31/2022 5:01:47 PM NAME : BRITTA TORRES PID : [id number] : 1945 Gender : Male Race : ORD : Procedure Date : Aug 31 2022 08:38:22 Edit Date : Aug 31 2022 17:01:51 Diagnosis: ATRIAL FIBRILLATION/FLUTTER COMPLETE RIGHT BUNDLE BRANCH BLOCK ABNORMAL ECG Confirmed by ARLENE ELLISON MD ([id number]) on 08/31/2022 5:01:47 PM Test Reason : Location : 192 : AVCRD Overread By : ARLENE ELLISON MD Edited By : ARLENE ELLISON MD Referred By : DHARMESH BAGLEY Acquired by : , Normal [facility] HEMOGLOBIN AND HEMATOCRITon 07-10-2022 Hematocrit (Bld) [Volume fraction] 36.8 % Critically low 42.0-54.0 [facility] Comment on above: Performed By: #### H GBHCT #### [facility] [address] [address] [address] Tobias Murrieta Hemoglobin (Bld) [Mass/Vol] 12.0 g/dL Critically low 14.0-18.0 [facility] Comment on above: Performed By: #### H GBHCT #### [facility] [address] [place] [address] Dr. Tobias Murrieta IRON AND TIBCon 07-10-2022 % SATURATION 25.5 % Normal [facility] Comment on above: Performed By: #### T OTIBC, FERR #### [facility] [address] [address] [address] Tobias Murrieta Iron [Mass/Vol] 81.0 ug/dL Normal 65.0-175.0 [facility] Comment on above: Performed By: #### T OTIBC, FERR #### [facility] [address] [place] [address] Dr. Tobias Murrieta TIBC DIRECT 318.0 ug/dL Normal 250.0-450.0 [facility] Comment on above: Performed By: #### T OTIBC, FERR #### [facility] [address] [place] [address] Dr. Tobias Murrieta Outside Colonoscopyon 2021 Outside Colonoscopy [id number]#[id number]: 127 Normal [facility] Reminderson 06-14-2022 Reminders - From: Ree Knutson LPN To: N - Clinical; Sent: 06/14/2022 09:22:28 EST Show up: 05/14/2032 07:00:00 EST Subject: colonoscopy recall Due Date/Time: 06/13/2032 07:00:00 EST Reminder/Recall Patient is due for screening colonoscopy 06/13/2032. Normal [facility] Lab Reportson 06-11-2022 Lab Reports [id number]: 127 Normal [facility] Covid-19 PCR (CVDTB)on SARS-CoV-2 (COVID-19) RNA HAROON+probe Ql (Unsp spec) Not detected Normal NOT DETECTED [facility] Comment on above: Result Comment: This test is not yet approved or cleared by the [place] FDA. When there are no FDA-approved or cleared tests available, and other criteria are met, FDA can make tests available under an emergency access mechanism called an Emergency Use Authorization (EUA). The EUA for this test is supported by the [place] of Health and Human Service's (HHS's) declaration that circumstances exist to justify the emergency use of in vitro diagnostics for the detection and/or diagnosis of the virus that causes COVID-19. This EUA will remain in effect (meaning this test can be used) for the duration of the COVID-19 declaration justifying emergency of IVDs, unless it is terminated or revoked by FDA (after which the test may no longer be used). When diagnostic testing is negative, the possibility of a false negative should be considered in the context of a patient's recent exposures and the presence of clinical signs and symptoms consistent with SARS-CoV-2. Performed By: #### C VDTB #### [facility] [address] [place] [address] Dr. Tobias Murrieta Consultation Noteon 05-24-20 Consultation Note [id number] :127 Normal [facility] Formson 05-24-2022 Forms [id number]: 127 [facility] Consent for Procedure/Surger yon 05-23-2022 Consent for Procedure/Surgery [id number]: 127 Normal [facility] Ambulatory Visit Summaryon 07-22-2021 Ambulatory Visit Summary BRITTA TORRES :1945 Visit Date:05/22/2022 Ambulatory Visit Instructions Your Care Team Attending Physician - JOSEY TINEO, Ishaan Pierre Primary Care Physician - RAMA TINEO, AUSTEN Parker This Is Your Medications List Contact prescribing physician if questions or concerns apixaban (Eliquis 5 mg oral tablet) aspirin (aspirin 81 mg Oral EC Tab) bisoprolol (bisoprolol 10 mg Tab) cholecalciferol (Vitamin D3) fexofenadine (Sarah 180 mg Tab) montelukast (montelukast 10 mg Tab) multivitamin with minerals (Multivitamins and Minerals) omega-3 polyunsaturated fatty acids (Fish Oil 1200 mg oral capsule) rosuvastatin (rosuvastatin 20 mg Tab) tamsulosin (Flomax 0.4 mg Cap) Procedures Performed Annuloplasty of tricuspid valve (06/19/2021), CABG x 3 - Coronary artery bypass grafts x 3 (06/19/2021), Maze procedure (06/19/2021), Replacement of aortic valve (06/19/2021), Cardioversion (2015), right palmar fasciectomy, two locations, thumb and ring finger based (10/05/2013), Cardioversion (2012), Colonoscopy (2009), Appendectomy, Cardiac ablation using fluoroscopy guidance, Cataract extraction, EXCISION LESION, Intraocular lens implant, Tonsillectomy and adenoidectomy. Discharge Vitals Heart Rate (Peripheral) 112 Respiratory Rate 16 Blood Pressure 152/78 Height 187 cm Height 74 in Weight 83.9 kg Weight 184.58 lb BMI 23.99 Medications What How Much When Instructions Unchanged apixaban (Eliquis 5 mg oral tablet) 1 Tablets By Mouth 2 times a day Contact prescribing physician if questions or concerns Unchanged aspirin (aspirin 81 mg Oral EC Tab) 1 Tablets By Mouth Saturday Contact prescribing physician if questions or concerns Unchanged bisoprolol (bisoprolol 10 mg Tab) 2 Tablets By Mouth Every day Contact prescribing physician if questions or concerns Unchanged cholecalciferol (Vitamin D3) 2,000 International unit By Mouth Every day Contact prescribing physician if questions or concerns Unchanged fexofenadine (Sarah 180 mg Tab) 1 TAB By Mouth Every day Contact prescribing physician if questions or concerns Unchanged montelukast (montelukast 10 mg Tab) 1 Tablets By Mouth Once a day (in the evening) Contact prescribing physician if questions or concerns Unchanged multivitamin with minerals (Multivitamins and Minerals) 1 TAB By Mouth Every day Contact prescribing physician if questions or concerns Unchanged omega-3 polyunsaturated fatty acids (Fish Oil 1200 mg oral capsule) 1 Capsules By Mouth Every day Contact prescribing physician if questions or concerns Unchanged rosuvastatin (rosuvastatin 20 mg Tab) 1 Tablets By Mouth Every day Contact prescribing physician if questions or concerns Unchanged tamsulosin (Flomax 0.4 mg Cap) 1 Capsules By Mouth Every day Contact prescribing physician if questions or concerns Allergies Deconamine CX (Urinary retention) Niaspan ER (Flushing) chlorpheniramine (Urinary retention) statins (Unknown) sulfamethoxazole (Constipation) trimethoprim (Unknown) Problems Ongoing - Any problem that you are currently receiving treatment for. Anticoagulated Anxiety and depression Aortic valve sclerosis Aortic valve stenosis Asthma Atrial fibrillation Benign essential hypertension Benign prostatic hyperplasia Bilateral enlargement of atria BMI 23.0-23.9, adult Chronic diastolic heart failure Coronary atherosclerosis HTN - Hypertension Lung granuloma Mixed hyperlipidemia Nodule of lung Non-rheumatic mitral regurgitation Polypharmacy Post-inflammatory pulmonary fibrosis Pulmonary hypertension Right bundle branch block Tricuspid stenosis, non-rheumatic Vitamin D deficiency Normal [facility] Physician Referralon 022 Physician Referral [id number]: 127 Normal [facility] CBC AUTO DIFFon 04-25-2022 BASO # 0.0 103/ul Normal 0.0-0.1 [facility] Comment on above: Performed By: #### C BC #### [facility] [address] [address] [address] Tobias Murrieta Basophils/100 WBC (Bld) 0.3 % Normal 0.2-2.0 [facility] Comment on above: Performed By: #### C BC #### [facility] [address] [address] [address] Tobias Murrieta EO # 0.2 103/ul Normal 0.0-0.7 [facility] Comment on above: Performed By: #### C BC #### [facility] [address] [address] [address] Tobias Murrieta Eosinophils/100 WBC (Bld) 3.0 % Normal 0.9-7.0 [facility] Comment on above: Performed By: #### C BC #### [facility] [address] [place] [address] Dr. Tobias Murrieta Erythrocyte distribution width (RBC) [Ratio] 13.2 % Normal 11.0-15.0 [facility] Comment on above: Performed By: #### C BC #### [facility] [address] [place] [address] Dr. Tobias Murrieta Hematocrit (Bld) [Volume fraction] 40.2 % Critically low 42.0-54.0 [facility] Comment on above: Performed By: #### C BC #### [facility] [address] [place] [address] Dr. Tobias Murrieta Hemoglobin (Bld) [Mass/Vol] 12.8 g/dL Critically low 14.0-18.0 [facility] Comment on above: Performed By: #### C BC #### [facility] [address] [place] [address] Dr. Tobias Murrieta IG # 0.01 10e3/ul Normal 0.00-0.03 [facility] Comment on above: Performed By: #### C BC #### [facility] [address] [place] [address] Dr. Tobias Murrieta IG % 0.2 % Normal 0.0-0.5 [facility] Comment on above: Performed By: #### C BC #### [facility] [address] [place] [address] Dr. Tboias Murrieta LYMPH # 2.0 103/ul Normal 1.2-3.8 [facility] Comment on above: Performed By: #### C BC #### [facility] [address] [place] [address] Dr. Tobias Murrieta Lymphocytes/100 WBC (Bld) 34.1 % Normal 20.5-60.0 [facility] Comment on above: Performed By: #### C BC #### [facility] [address] [place] [address] Dr. Tobias Murrieta MANUAL DIFF REQ NO Normal [facility] Comment on above: Performed By: #### C BC #### [facility] [address] [place] [address] Dr. Tobias Murrieta MCH (RBC) [Entitic mass] 29.3 pg Normal 25.9-34.0 [facility] Comment on above: Performed By: #### C BC #### [facility] [address] [place] [address] Dr. Tobias Murrieta MCHC (RBC) [Mass/Vol] 31.8 g/dL Normal 29.9-35.2 [facility] Comment on above: Performed By: #### C BC #### [facility] [address] [place] [address] Dr. Tobias Murrieta MCV (RBC) [Entitic vol] 92.0 fL Normal 80.0-94.0 [facility] Comment on above: Performed By: #### C BC #### [facility] [address] [place] [address] Dr. Tobias Murrieta MONO # 0.8 103/ul Normal 0.3-0.8 [facility] Comment on above: Performed By: #### C BC #### [facility] [address] [place] [address] Dr. Tobias Murrieta Monocytes/100 WBC (Bld) 13.9 % Critically high 1.7-12.0 [facility] Comment on above: Performed By: #### C BC #### [facility] [address] [address] [address] Tobias Murrieta NEUT # 2.9 103/ul Normal 1.4-6.5 [facility] Comment on above: Performed By: #### C BC #### [facility] [address] [address] [address] Tobias Murrieta Neutrophils/100 WBC (Bld) 48.5 % Normal 43.0-75.0 [facility] Comment on above: Performed By: #### C BC #### [facility] [address] [place] [address] Dr. Tobias Murrieta Platelet mean volume (Bld) [Entitic vol] 9.8 fL Normal 9.5-13.5 [facility] Comment on above: Performed By: #### C BC #### [facility] [address] [place] [address] Dr. Tobias Murrieta PLT 135 103/ul Critically low 150-450 [facility] Comment on above: Performed By: #### C BC #### [facility] [address] [place] [address] Dr. Tobias Murrieta RBC 4.37 106/ul Critically low 4.70-6.10 [facility] Comment on above: Performed By: #### C BC #### [facility] [address] [place] [address] Dr. Tobias Murrieta WBC 5.9 103/ul Normal 4.0-11.0 [facility] Comment on above: Performed By: #### C BC #### [facility] [address] [place] [address] Dr. Tobias Murrieta FERRITINon 04-25-2022 Ferritin [Mass/Vol] 72.0 ng/mL Normal 26.0-388.0 [facility] Comment on above: Performed By: #### T OTIBC, FERR #### [facility] [address] [place] [address] Dr. Tobias Murrieta IRONon 04-25-2022 Iron [Mass/Vol] 52.0 ug/dL Critically low 65.0-175.0 [facility] Comment on above: Performed By: #### I PEYTON #### [facility] [address] [place] [address] Dr. Tobias Murrieta TIBC ONLY- NO FEon TIBC DIRECT 335.0 ug/dL Normal 250.0-450.0 [facility] Comment on above: Performed By: #### T OTIBC, FERR #### [facility] [address] [place] [address] Dr. Tobias Murrieta CBC AUTO DIFFon 01-24-2022 BASO # 0.0 103/ul Normal 0.0-0.1 [facility] Comment on above: Performed By: #### D ATCBC #### [facility] [address] [place] [address] Dr. Tobias Murrieta Basophils/100 WBC (Bld) 0.4 % Normal 0.2-2.0 [facility] Comment on above: Performed By: #### D ATCBC #### [facility] [address] [place] [address] Dr. Tobias Murrieta EO # 0.2 103/ul Normal 0.0-0.7 [facility] Comment on above: Performed By: #### D ATCBC #### [facility] [address] [place] [address] Dr. Tobias Murrieta Eosinophils/100 WBC (Bld) 4.1 % Normal 0.9-7.0 [facility] Comment on above: Performed By: #### D ATCBC #### [facility] [address] [place] [address] Dr. Tobias Murrieta Erythrocyte distribution width (RBC) [Ratio] 13.9 % Normal 11.0-15.0 [facility] Comment on above: Performed By: #### D ATCBC #### [facility] [address] [place] [address] Dr. Tobias Murrieta Hematocrit (Bld) [Volume fraction] 38.0 % Critically low 42.0-54.0 [facility] Comment on above: Performed By: #### D ATCBC #### [facility] [address] [place] [address] Dr. Tobias Murrieta Hemoglobin (Bld) [Mass/Vol] 12.5 g/dL Critically low 14.0-18.0 [facility] Comment on above: Performed By: #### D ATCBC #### [facility] [address] [place] [address] Dr. Tobias Murrieta IG # 0.00 10e3/ul Normal 0.00-0.03 [facility] Comment on above: Performed By: #### D ATCBC #### [facility] [address] [address] [address] Tobias Murrieta IG % 0.0 % Normal 0.0-0.5 [facility] Comment on above: Performed By: #### D ATCBC #### [facility] [address] [place] [address] Dr. Tobias Murrieta LYMPH # 2.2 103/ul Normal 1.2-3.8 [facility] Comment on above: Performed By: #### D ATCBC #### [facility] [address] [place] [address] Dr. Tobias Murrieta Lymphocytes/100 WBC (Bld) 46.1 % Normal 20.5-60.0 [facility] Comment on above: Performed By: #### D ATCBC #### [facility] [address] [place] [address] Dr. Tobias Murrieta MCH (RBC) [Entitic mass] 29.8 pg Normal 25.9-34.0 [facility] Comment on above: Performed By: #### D ATCBC #### [facility] [address] [place] [address] Dr. Tobias Murrieta MCHC (RBC) [Mass/Vol] 32.9 g/dL Normal 29.9-35.2 [facility] Comment on above: Performed By: #### D ATCBC #### [facility] [address] [place] [address] Dr. Tobias Murrieta MCV (RBC) [Entitic vol] 90.7 fL Normal 80.0-94.0 [facility] Comment on above: Performed By: #### D ATCBC #### [facility] [address] [address] [address] Tobias Murrieta MONO # 0.6 103/ul Normal 0.3-0.8 [facility] Comment on above: Performed By: #### D ATCBC #### [facility] [address] [place] [address] Dr. Tobias Murrieta Monocytes/100 WBC (Bld) 12.1 % Critically high 1.7-12.0 [facility] Comment on above: Performed By: #### D ATCBC #### [facility] [address] [place] [address] Dr. Tobias Murrieta NEUT # 1.8 103/ul Normal 1.4-6.5 [facility] Comment on above: Performed By: #### D ATCBC #### [facility] [address] [place] [address] Dr. Tobias Murrieta Neutrophils/100 WBC (Bld) 37.3 % Critically low 43.0-75.0 [facility] Comment on above: Performed By: #### D ATCBC #### [facility] [address] [place] [address] Dr. Tobias Murrieta Platelet mean volume (Bld) [Entitic vol] 9.6 fL Normal 9.5-13.5 [facility] Comment on above: Performed By: #### D ATCBC #### [facility] [address] [place] [address] Dr. Tobias Murrieta PLT 131 103/ul Critically low 150-450 [facility] Comment on above: Performed By: #### D ATCBC #### [facility] [address] [place] [address] Dr. Tobias Murrieta RBC 4.19 106/ul Critically low 4.70-6.10 [facility] Comment on above: Performed By: #### D ATCBC #### [facility] [address] [place] [address] Dr. Tobias Murrieta WBC 4.9 103/ul Normal 4.0-11.0 [facility] Comment on above: Performed By: #### D ATCBC #### [facility] [address] [place] [address] Dr. Tobias Murrieta BEN- BMP WITH LIPIDon 2021 Anion gap [Moles/Vol] 11.2 mmol/L Normal [facility] Comment on above: Performed By: #### T OTIBC, FERR #### [facility] [address] [address] [address] Tobias Murrieta Calcium [Mass/Vol] 9.2 mg/dL Normal 8.5-10.1 [facility] Comment on above: Performed By: #### T OTIBC, FERR #### [facility] [address] [address] [address] Tobias Murrieta Chloride [Moles/Vol] 107 mmol/L Normal 98-107 [facility] Comment on above: Performed By: #### T OTIBC, FERR #### [facility] [address] [address] [address] Tobias Murrieta Cholesterol [Mass/Vol] 154 mg/dL Normal <=200 [facility] Comment on above: Performed By: #### T OTIBC, FERR #### [facility] [address] [address] [address] Tobias Murrieta Cholesterol in HDL [Mass/Vol] 55 mg/dL Normal 40-60 [facility] Comment on above: Performed By: #### T OTIBC, FERR #### [facility] [address] [address] [address] Tobias Murrieta Cholesterol in LDL [Mass/Vol] 90.0 mg/dL Normal [facility] Comment on above: Performed By: #### T OTIBC, FERR #### [facility] [address] [address] [address] Tobias Murrieta CO2 [Moles/Vol] 30.3 mmol/L Normal 21.0-32.0 [facility] Comment on above: Performed By: #### T OTIBC, FERR #### [facility] [address] [address] [address] Tobias Murrieta Creatinine [Mass/Vol] 0.98 mg/dL Normal 0.70-1.30 [facility] Comment on above: Performed By: #### T OTIBC, FERR #### [facility] [address] [address] [address] Tobias Murrieta EGFR-AF JAMAICAN >60 Normal >=60 [facility] Comment on above: Performed By: #### T OTIBC, FERR #### [facility] [address] [address] [address] Tobias Murrieta EGFR-NON AF [place] >60 Normal >=60 [facility] Comment on above: Performed By: #### T OTIBC, FERR #### [facility] [address] [address] [address] Tobias Murrieta Glucose [Mass/Vol] 94 mg/dL Normal 74-106 [facility] Comment on above: Performed By: #### T OTIBC, FERR #### [facility] [address] [address] [address] Tobias Murrieta HDL NORMAL > or = 60 mg/dl - LO W CARDIOVASCULAR RISK <40 mg/dl - HIGH CARDIOVASCULAR RISK Normal [facility] Comment on above: Performed By: #### T OTIBC, FERR #### [facility] [address] [address] [address] Tobias Murrieta LDL CALC NORMAL SEE BELOW Normal [facility] Comment on above: Result Comment: <100 mg/dl OPTIMAL 100 - 129 mg/dl NEAR OR ABOVE OPTIMAL 130 - 159 mg/dl BORDERLINE HIGH 160 - 189 mg/dl HIGH >190 mg/dl VERY HIGH Performed By: #### T OTIBC, FERR #### [facility] [address] [address] [address] Tobias Murrieta Potassium [Moles/Vol] 4.5 mmol/L Normal 3.5-5.1 [facility] Comment on above: Performed By: #### T OTIBC, FERR #### [facility] [address] [address] [address] Tobias Murrieta Sodium [Moles/Vol] 144 mmol/L Normal 136-145 [facility] Comment on above: Performed By: #### T OTIBC, FERR #### [facility] [address] [address] [address] Tobias Murrieta Triglyceride [Mass/Vol] 45 mg/dL Normal <=150 [facility] Comment on above: Performed By: #### T OTIBC, FERR #### [facility] [address] [address] [address] Tobias Murrieta Urea nitrogen [Mass/Vol] 27.0 mg/dL Critically high 7.0-18.0 [facility] Comment on above: Performed By: #### T OTIBC, FERR #### [facility] [address] [address] [address] Tobias Murrieta Urea nitrogen/Creatinin e [Mass ratio] 27.6 mg/mg Normal [facility] Comment on above: Performed By: #### T OTIBC, FERR #### [facility] [address] [address] [address] Tobias Murrieta VLDL CALC 9.0 mg/dL Normal [facility] Comment on above: Performed By: #### T OTIBC, FERR #### [facility] [address] [address] [address] Tobias Murrieta CBC panel Auto (Bld)on 01-18 Erythrocyte distribution width (RBC) [Ratio] 14.1 % 11.5 - 15.0 % [facility] Hematocrit (Bld) [Volume fraction] 41.2 % 39.0 - 51.0 % [facility] Hemoglobin (Bld) [Mass/Vol] 12.9 g/dL Low 13.0 - 17.0 g/dL [facility] MCH (RBC) [Entitic mass] 28.9 pg 26.0 - 34.0 pg [facility] MCHC (RBC) [Mass/Vol] 31.3 g/dL 30.5 - 36.0 g/dL [facility] MCV (RBC) [Entitic vol] 92.2 fL 80.0 - 100.0 fL [facility] Nucleated RBC (Bld) [#/Vol] 10*3/uL <0.01 k/uL [facility] Platelet mean volume (Bld) [Entitic vol] 10.9 fL 9.0 - 12.7 fL [facility] Platelets (Bld) [#/Vol] 151 10*3/uL 150 - 400 k/uL [facility] RBC (Bld) [#/Vol] 4.47 10*6/uL 4.20 - 6.0 0 m/uL [facility] WBC (Bld) [#/Vol] 4.66 10*3/uL 3.70 - 11. 00 k/uL [facility] Comprehensive metabolic 2000 panelon 01-18-2022 Albumin [Mass/Vol] 4.5 g/dL 3.9 - 4.9 g/dL [facility] ALP [Catalytic activity/Vol] 112 U/L 38 - 113 U/L [facility] ALT [Catalytic activity/Vol] 26 U/L 10 - 54 U/L [facility] Anion gap [Moles/Vol] 11 mmol/L 9 - 18 mmol/L [facility] AST [Catalytic activity/Vol] 33 U/L 14 - 40 U/L [facility] Bilirubin [Mass/Vol] 0.8 mg/dL 0.2 - 1.3 mg/dL [facility] Calcium [Mass/Vol] 9.6 mg/dL 8.5 - 10. 2 mg/dL [facility] Chloride [Moles/Vol] 102 mmol/L 97 - 105 mmol/L [facility] CO2 [Moles/Vol] 27 mmol/L 22 - 30 mmol/L [facility] Creatinine [Mass/Vol] 0.95 mg/dL 0.73 - 1.22 mg/dL [facility] Estimated Glomerular Filtration Rate 83 mL/min/1.73m >=60 mL/min/1.73m [facility] Glucose [Mass/Vol] 109 mg/dL High 74 - 99 mg/dL [facility] Potassium [Moles/Vol] 5.5 mmol/L High 3.7 - 5.1 mmol/L [facility] Protein [Mass/Vol] 7.4 g/dL 6.3 - 8.0 g/dL [facility] Sodium [Moles/Vol] 140 mmol/L 136 - 144 mmol/L [facility] Urea nitrogen [Mass/Vol] 22 mg/dL 9 - 24 mg/dL [facility] NT PRO BNPon 01-18-2022 Natriuretic peptide.B prohormone N-Terminal [Mass/Vol] 600 pg/mL High <450 pg/mL [facility] CNPNon 03-31-2021 CNPN Telephone (FVPRAD) -------- BRITTA TORRES ([id number]) 1945 M Date Time Provider Department 03/31/21 BRANDY MCKEON During your visit today, we recorded the following information about you: Brandy Mckeon APRN.CHIEF REVENUE OFFICER 03/31/2021 4:54 PM Signed Received request from Dr. Goldberg and Dr. Bagley to assist in the referral to CTS, Dr. Goncalves, for consideration of AVR, CABG, PVI and LAAL/clipping Patient: Britta Torres : 1945 Mr. Torres is a 75 year old patient who has recently established Dr. Bagley to obtain a second opinion regarding the management of his long standing paroxysmal atrial fibrillation. At his last appointment in February, he had concerns regarding substernal, exertional chest aching. Given his symptoms, a CT coronary was completed, demonstrating significant multivessel disease. ECHO had been obtained as well revealing at least moderate and 2+ TR. Thus, LHC was completed, confirming significant multivessel coronary artery disease. A repeat limited echocardiogram will be obtained at our [place] office to better assess the aortic valve anatomy as it is felt that the severity was underestimated on initial echocardiogram due to sub-optimal picture. Pulmonary function testing and carotid duplex will be obtained locally. Please advise if any further assistance is needed. Brandy Mckeon APRN.CHIEF REVENUE OFFICER ECHO 03/23/2021: - Exam indication: atrial fibrillation - The left ventricle is normal in size. Left ventricular systolic function is normal. EF = 59 ? 5% (2D biplane) Left ventricular diastolic function was not evaluated due to AF. - The right ventricle is moderately dilated. Right ventricular systolic function is mildly decreased. - The left atrial cavity is severely dilated. - The right atrial cavity is severely dilated. - There is moderate (2+) tricuspid valve regurgitation caused by annular dilatation. - There is moderate aortic valve stenosis caused by calcified valve. AV area is 0.61 cm? (0.29 cm?/m?) by continuity, VTI. The peak gradient is 29 mmHg, the mean gradient is 17 mmHg and the dimensionless valve index is 0.16. -recovering from Covid 19. Tested positive on 03/13/21 - The patient has not had a prior CC echocardiographic exam for comparison.? Cardiac Catheterization 03/30/2021: ? Left Main: bifurcates into the LAD and LCx. (1) There is a 70% ostial left main lesion, with post-stenotic dilatation. Ventricularization of the left main waveform during ostial cannulation. ? LAD: (1) There is a 70% ostial LAD lesion, which is less severe in other views. (2) There is a 50-60% mid-LAD lesion. (3) Intramyocardial LAD at the mid-distal segment noted. (4) Large first diagonal branch with a 40% proximal to mid-vessel lesion. ? LCx: (1) There is an 80-90% ostial LCx lesion. The distal LCx/AV groove demonstrates diffuse disease. (2) OM1 - there is a 50% lesion within the mid first obtuse marginal branch. (3) OM2 - there is a 60-70% mid vessel lesion. ? RCA: (1) There is a 60-70% mid RCA complex lesion (2) 50% distal RCA lesion (3) The PDA is large with a 20% lesion proximally (4) SANJUANA branch is small (5) Large RV branch with ostial disease ? Dominance: Right dominant ? Central aortic gradient: 24 mm Hg (Ventricularized left main pressure: 105/44 mm Hg, Aortic pressure (129/63 mm Hg) ? LVEDP - not performed. ? Ventriculogram: Not performed. Heavily calcified valve seen on fluoroscopy. Dora Tate 2021 11:48 AM Signed Spoke to pt and scheduled PFTs on 04/13/21 in [place] and Carotid US on 04/18/21 in [place]. 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 - aspirin, enteric coated (ADULT LOW DOSE ASPIRIN) 81 mg EC tablet Take 1 tablet by mouth once daily. - nitroglycerin sublingual (NITROQUICK) 0.3 mg SL (more content not included)... [facility] ALLIED HEALTHon 03-23-2021 ALLIED HEALTH HNO ID: [id number] Author: RT Manuel(Gabby) Service: ? Author Type: Technologist Type: Allied Health Filed: 03/23/2021 9:36 AM Note Text: Radiology Service Progress Note PATIENT NAME: Britta Torres DATE OF SERVICE: March 23, 2021 TIME: 9:36 AM PATIENT IDENTITY VERIFICATION COMPLETED USING TWO (2) IDENTIFIERS: Name and Date of confirmed by patient verbally. FALL SCREENING: Has the patient had 2 falls in the last year or 1 fall with injury or currently using an Ambulatory Assistive Device (Walker, Cane, Wheelchair, Crutches, etc.)? No PATIENT GENDER DATA: Male PATIENT RELEVANT IMPLANT DATA REVIEWED: Not Applicable RADIOLOGY DEPARTMENT: CT; Exam(s) Completed: Cardiac PERIPHERAL IV DATA: Inpatient: see LDA documentation SIGNED BY: RT Manuel(R) March 23, 2021 9:36 AM [facility] CTA CORONARY W IVCONon 03-23 CTA CORONARY W IVCON * * *Final Report* * * DATE OF EXAM: Mar 23 2021 10:21AM [facility] 0470 - CTA CORONARY W IVCON / PROCEDURE REASON: Stable angina pectoris (HCC) * * * * Physician Interpretation * * * * Coronary CTA dated 03/23/2021 10:21 AM Comparison: CT pulmonary vein 03/2014 History: 75 years old Male with previous history of Afib s/p ablation presenting with intermittent chest pain and clinically suspected coronary artery disease. There is need to define coronary anatomy. Technique: Multi-detector CT technology was employed ( Siemens Definition Flash dual source). Spiral imaging with retrospective gating and minimal slice thickness was performed following the IV administration of contrast material. Because of the patient's cardiovascular disease history, a low-osmolar contrast agent was used (90 ml Omnipaque 350). The patient was premedicated with 0 mg i.v. lopressor and 0.6 mg sublingual nitroglycerin for heart rate control and coronary dilation, respectively. CT Dose-Length Product (DLP): [address] Dose Reduction Employed: Yes For optimization of anatomic evaluation, multiplanar reconstruction, maximum intensity projections, and advanced 3-D off-line postprocessing were performed on a dedicated stand-alone workstation under the direct supervision of the interpreting physician. RESULT: Potential study limitations: increase motion artifact. The chest wall, mediastinum, and pericardium are unremarkable. The pulmonary arteries appear ectatic (Main PA 3.0 cm). No significant adenopathy is identified in the axilla, mediastinum, and lauren. Lung windows reveal no acute abnormalities. There is no pulmonary parenchymal mass, infiltrate, or pleural effusion. The cardiac chambers demonstrate normal atrioventricular and ventriculoarterial concordance, and systemic and pulmonary venous return. The cardiac chamber sizes appear normal, aside from moderate left and severe right atrial dilation. There is a filling defect in the tip of the left atrial appendage. Delayed imaging was not performed, therefore this finding may represents delayed filling versus thrombus. Clinical correlation advised. The aortic valve is trileaflet, and free from calcifications. The visualized thoracic aorta is normal in course, caliber and mild calcific wall changes. There is no acute aortic pathology, such as dissection, intramural hematoma, or contained rupture. The aortic arch is not included on this examination. There are no regional wall motion abnormalities on cine imaging at rest. Coronary anatomy: There is normal origin of the coronary arteries. Left Main Coronary Artery: The left main is normal sized vessel that trifurcates into the LAD, circumflex and ramus intermedius. The distal LM has diffuse calcific disease with significant stenosis >75% in its distal segment. Left Anterior Descending Coronary Artery: The LAD is a normal size vessel that wraps around the apex. It gives rise to 2 acute diagonal branches. There is no significant atherosclerotic change or stenotic disease. The proximal to mid LAD has diffuse calcific disease with significant severe >75% luminal stenosis. Left Circumflex Coronary Artery: The LCX is a normal size vessel, which is non-dominant. It gives rise to 1 obtuse marginal branches. The proximal and distal Lcx has long calcific plaques with severe >75% associated luminal stenosis. Ramus intermedius Coronary Artery: Is a small caliber vessel (too small for luminal assessment) Right Coronary Artery: The RCA is a normal size vessel, which is dominant. It gives rise to a conus branch, sinus steffany branch, and 1 acute marginal branches. In its distal segment it bifurcates into the PDA and PV branch. The RCA multiple focal plaques with significant stenosis >75% in its distal proximal segment. Limited images of the upper abdomen reveal no abnormalities of the visualized organs. IMPRESSION: Potential study limitations: increase motion artifact and blooming artifact. 1. Normal coronary anatomy with evidence of significant multivessel stenotic disease as detailed within the body of the report. This is associated with significant calcium blooming artifact. Calcium blooming artifact limits luminal stenosis assessment and may overestimate severity of stenosis. However, significant stenosis in these segments cannot be excluded. If precise assessment of luminal stenosis is clinically indicated, cardiac catheterization is recommended. 2. There is a filling defect in the tip of the left atrial appendage. Delayed imaging was not performed, therefore this finding may represents delayed filling versus thrombus. Clinical correlation advised. 3. Moderate left and severe right atrial dilation. Dismantler: ETHAN Transcribe Date/Time: Mar 23 2021 11:30A Dictated by : JONAS JOHN MD This examination was interpreted and the report reviewed and electr (more content not included)... [facility] NURSING PROGon 03-23-2021 NURSING PROG HNO ID: [id number] Author: Sheryl Negrete RN Service: Nursing Author Type: Registered Nurse Type: Nursing Progress Note Filed: 03/23/2021 11:11 AM Note Text: RADIOLOGY SERVICE PROGRESS NOTE DATE OF SERVICE: March 23, 2021 TIME OF SERVICE: 924 EVENT: COVID (+) Pt swabbed outside hospital. No definite dates to go by protocol. As patient was in afib, there was difficulty synching the image to patient's HR. Extra dose of Nitro order given verbally by Dr. Radha Brown - Cardiac Reading Room. Pt escorted to ECHO after procedure. Post VS for CTA within appropriate range for patient. Please see flow sheets for VS. ADDITIONAL EVENT DETAILS: N/A SIGNATURE: Sheryl Negrete RN PATIENT NAME: Britta Torres DATE: March 23, 2021 TIME: 11:07 AM PAGER/CONTACT #: [facility] NURSING PROG HNO ID: [id number] Author: Sheryl Negrete RN Service: Nursing Author Type: Registered Nurse Type: Nursing Progress Note Filed: 03/23/2021 9:11 AM Note Text: Radiology Service Progress Note PATIENT NAME: Britta Torres DATE OF SERVICE: March 23, 2021 TIME: 8:55 AM PATIENT IDENTITY VERIFICATION COMPLETED USING TWO (2) STANDARD IDENTIFIERS: Name and Date of confirmed by patient verbally. PATIENT GENDER DATA: Male PATIENT RELEVANT IMPLANT DATA REVIEWED: Yes ALLERGIES: Reviewed and unchanged MEDICATIONS REVIEWED: YES - Pt took 75 mg lopressor in a.m. BP 152/89 HR 77 RA 98 Cr .0.9 GFR >60 PROCEDURE TYPE: CTA coronary PATIENT SCREENING: IV Beta Blocking (Lopressor/Metoprolol Tartrate): Yes n/a IV SITE: Ambulatory: A peripheral IV was started in the Left antecubital site with a Angio cath: 20 gauge. PERIPHERAL IV ACCESS: left AC #20 CARDIAC MEDICATIONS: Nitroglycerin 0.3 mg SL given PATIENT DISCHARGED TO: Pt went to Echo and then home. SIGNED BY: Sheryl Negrete RN March 23, 2021 8:55 AM [facility] Vital Signs Date Time Vital Sign Value Performing Clinician Sydni skelton 08-09-2023 09:32-0500 Body height 185.4 cm Ever Estrada MD Work Phone: [facility] 08-09-2023 09:32-0500 Body weight 84.4 kg Ever Estrada MD Work Phone: [facility] 08-09-2023 09:32-0500 Diastolic blood pressure 64 mm[Hg] Ever Estrada MD Work Phone: [facility] 08-09-2023 09:32-0500 Heart rate 62 /min Ever Estrada MD Work Phone: [facility] 08-09-2023 09:32-0500 Respiratory rate 18 /min Ever Estrada MD Work Phone: [facility] 08-09-2023 09:32-0500 SaO2% (BldA) [Mass fraction] 95 % Ever Estrada MD Work Phone: [facility] 08-09-2023 09:32-0500 Systolic blood pressure 106 mm[Hg] Ever Estrada MD Work Phone: [facility] 06-07-2023 08:42-0500 Body height 186.7 cm Amy Subramanian ORTHODONTIC TECHNICIAN.CHIEF REVENUE OFFICER Work Phone: [facility] 06-07-2023 08:42-0500 Body weight 84.37 kg Amy Subramanian ORTHODONTIC TECHNICIAN.CHIEF REVENUE OFFICER Work Phone: [facility] 06-07-2023 08:42-0500 Diastolic blood pressure 80 mm[Hg] Amy Subramanian ORTHODONTIC TECHNICIAN.CHIEF REVENUE OFFICER Work Phone: [facility] 06-07-2023 08:42-0500 Heart rate 86 /min Amy Subramanian ORTHODONTIC TECHNICIAN.CHIEF REVENUE OFFICER Work Phone: [facility] 06-07-2023 08:42-0500 Systolic blood pressure 150 mm[Hg] Amy Subramanian ORTHODONTIC TECHNICIAN.CHIEF REVENUE OFFICER Work Phone: [facility] 08-31-2022 08:12-0500 Body weight 83.19 kg Dharmesh Bagley MD Work Phone: [facility] 08-31-2022 08:12-0500 Diastolic blood pressure 76 mm[Hg] Dharmesh Bagley MD Work Phone: [facility] 08-31-2022 08:12-0500 Heart rate 112 /min Dharmesh Bagley MD Work Phone: [facility] 08-31-2022 08:12-0500 Systolic blood pressure 152 mm[Hg] Dharmesh Bagley MD Work Phone: [facility] 06-04-2022 08:37-0500 Body height 186.7 cm Ever Estrada MD Work Phone: [facility] 06-04-2022 08:37-0500 Body weight 83.46 kg Ever Estrada MD Work Phone: [facility] 06-04-2022 08:37-0500 Diastolic blood pressure 70 mm[Hg] Ever Estrada MD Work Phone: [facility] 06-04-2022 08:37-0500 Heart rate 113 /min Ever Estrada MD Work Phone: [facility] 06-04-2022 08:37-0500 Systolic blood pressure 152 mm[Hg] Ever Estrada MD Work Phone: [facility] 05-22-2022 09:55-0500 Blood Pressure Location Ishaan BACAL [facility] 05-22-2022 09:55-0500 Diastolic blood pressure 78 mm[Hg] Ishaan NILL [facility] [place] 05-22-2022 09:55-0500 Heart rate 112 /min Ishaan NILL [facility] 05-22-2022 09:55-0500 Respiratory rate 16 /min Ishaan NILL [facility] 05-22-2022 09:55-0500 Systolic blood pressure 152 mm[Hg] [facility] 03-01-2022 08:48-0400 Body height 186.7 cm Dharmesh Bagley MD Work Phone: [facility] 03-01-2022 08:48-0400 Body weight 81.65 kg Dharmesh Bagley MD Work Phone: [facility] 03-01-2022 08:48-0400 Diastolic blood pressure 80 mm[Hg] Dharmesh Bagley MD Work Phone: [facility] 03-01-2022 08:48-0400 Heart rate 110 /min Dharmesh Bagley MD Work Phone: [facility] 03-01-2022 08:48-0400 Systolic blood pressure 142 mm[Hg] Dharmesh Bagley MD Work Phone: [facility] 01-18-2022 09:11-0400 Body weight 79.38 kg Ever Estrada MD Work Phone: [facility] 01-18-2022 09:11-0400 Diastolic blood pressure 80 mm[Hg] Ever Estrada MD Work Phone: [facility] 01-18-2022 09:11-0400 Heart rate 95 /min Ever Estrada MD Work Phone: [facility] 01-18-2022 09:11-0400 Systolic blood pressure 123 mm[Hg] Ever Estrada MD Work Phone: [facility] Encounters Encounter Date Encounter Type Care Provider Facility Start: 08-09-2023 Clinisync Result Encounter Gen alondra External Data Provider [facility] External Department Unsolicited Start: 08-09-2023 Clinisync Result Encounter Gen alondra External Data Provider [facility] External Department Unsolicited Start: 08-09-2023 End: 08-10-2023 ambulatory AUSTEN ONTIVEROS Facility:[facility] Start: 08-09-2023 End: 08-09-2023 Patient encounter procedure Ever Goldberg MD Work Phone: Cardiology Comment on above: S/P AVR (Primary Dx) ; 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); Pulmonary hypertension (HCC); Chronic a-fib (HCC); Pure hypercholesterolemia; Other forms of dyspnea Start: 06-12-2023 End: 06-12-2023 ambulatory AUSTEN ONTIVEROS Not Available Start: 06-07-2023 End: 06-07-2023 ambulatory AMY SUBRAMANIAN Facility:[facility] Start: 06-07-2023 End: 06-07-2023 Patient encounter procedure Amy Subramanian ORTHODONTIC TECHNICIAN.CHIEF REVENUE OFFICER Work Phone: Cardiology Comment on above: Permanent atrial fib rillation (HCC) (Primary Dx); Essential hypertension Start: 02-28-2023 Refill Dharmesh desai MD Work Phone: [place] Comment on above: Refill Request Start: 02-12-2023 ambulatory Ever Goldberg MD Work Phone: Cardiology Comment on above: 20 mg rosuvastatin Start: 02-11-2023 End: 02-11-2023 ambulatory AUSTEN ONTIVEROS Facility:[facility] Start: 11-21-2022 Refill Dharmesh desai MD Work Phone: Cardiology Comment on above: Refill Request Start: 10-09-2022 End: 10-10-[address] AUSTEN ONTIVEROS . Facility: Start: 08-31-2022 End: 08-31-2022 ambulatory DHARMESH BAGLEY Facility:[facility] Start: 08-31-2022 End: 08-31-2022 Patient encounter procedure Dharmesh Bagley MD Work Phone: Cardiology Comment on above: Chronic atrial fibri llation (HCC) (Primary Dx) Start: 07-10-2022 End: 07-11-[address] AUSTEN ONTIVEROS . Facility:[facility] Start: 06-16-2022 Encounter for prepro cedural laboratory examination DR ISHAAN DOWLING . [facility] Start: 06-13-2022 End: 06-14-2022 ambulatory Ishaan DOWLING Facility:CD:[id number] Start: 06-09-2022 End: 06-10-[address] ISHAAN DOWLING . Facility:[facility] Start: 06-09-2022 End: 06-10-2022 Encounter for preprocedural laboratory examination DR ISHAAN DOWLING . Facility:[facility] Start: 06-04-2022 End: 06-04-2022 Patient encounter procedure Ever Goldberg MD Work Phone: Cardiology Comment on above: Coronary artery dise ase involving iroquois coronary artery of iroquois heart with angina pectoris (HCC) (Primary Dx); S/P AVR (aortic valve replacement) bio; Pulmonary hypertension (HCC); Chronic a-fib (HCC); Pure hypercholesterolemia Start: 05-22-2022 End: 05-23-2022 ambulatory Ishaan Pierre PHUONGDeidra Facility: [facility] Start: 05-22-2022 End: 05-22-2022 Patient encounter procedure Ishaan Gabby JOSEY [facility] [place] Start: 05-11-2022 Telephone encounter Austen Ontiveros MD Work Phone: [address] [place] [address] Comment on above: Patient Question Start: 05-11-2022 ambulatory Ishaan JOSEY Facility:[facility] Start: 05-02-2022 ambulatory Ishaan Gabby JOSEY Facility : [facility] Start: 04-25-2022 End: 04-26-[address] AUSTEN ONTIVEROS . Facility: Start: 04-11-2022 Refill Amy Subramanian APRN.CHIEF REVENUE OFFICER Work Phone: Cardiology Comment on above: Refill Request Start: 03-01-2022 End: 03-01-2022 Patient encounter procedure Dharmesh Bagley MD Work Phone: Cardiology Comment on above: Atrial fibrillation, persistent (HCC) (Primary Dx) Start: 01-24-2022 End: 01-25-[address] AUSTEN ONTIVEROS . Facility: Start: 01-18-2022 End: 01-18-2022 Patient encounter procedure Ever Goldberg MD Work Phone: Cardiology Comment on above: Coronary artery dise ase involving iroquois coronary artery of iroquois heart with angina pectoris (HCC) (Primary Dx); Nonrheumatic aortic valve stenosis; S/P AVR (aortic valve replacement); Pulmonary hypertension (HCC); Atrial fibrillation, persistent (HCC); Chronic diastolic (congestive) heart failure (HCC) Start: 12-21-2021 Telephone encounter Dharmesh Bagley MD Work Phone: Cardiology Comment on above: Elevated HR Start: 10-31-[address] AUSTEN MCKEON . Facility: Start: 10-23-2021 Telephone encounter Dharmesh Bagley MD Work Phone: Cardiology Comment on above: Care Coordination Procedures Date Procedure Procedure Detail Performing Clinician Start: 08-09-2023 [facility] NT-PROBNP [facility] Generic External Data Provider Start: 06-07-2023 Ecg routine ecg w/le ast 12 lds i&r only [facility] Provider Start: 08-31-2022 Ecg routine ecg w/le ast 12 lds i&r only [facility] Provider Start: 06-19-2021 Annuloplasty of tric uspid valve Ishaan DOWLING Start: 06-19-2021 Coronary artery bypa ss grafts x 3 Ishaan JOSEY Start: 06-19-2021 Maze procedure Ishaan DOWLING Start: 06-19-2021 Replacement of aortic valve Ishaan DOWLING Start: 07-08-2015 Cardioversion Ishaan DUMONT Start: 10-05-2013 right palmar fasciec iris, two locations, thumb and ring finger based Ishaan JOSEY Start: 07-08-2012 Cardioversion Ishaan DUMONT Start: 07-08-2009 Colonoscopy Ishaan VASQUEZ Appendectomy Ishaan DOWLING Cardiac ablation usi ng fluoroscopy guidance Ishaan DOWLING EXCISION LESION 1 Ishaan VASQUEZ Comment on above: FOREHEAD Extraction of cataract Marc alexa DOWLING Intraocular lens imp lant (physical object) Ishaan DOWLING Tonsillectomy and adenoidectomy Ishaan DOWLING Plan of Treatment Date Care Activity Detail Author Start: 10-18-2031 Urine microalbumin profile DTaP,Tdap,Td Vaccine (4 - Td or Tdap) [facility] Start: 01-18-2027 LIPID SCREEN LIPID SCREEN [facility] Start: 01-18-2025 DIABETES SCREEN DIABETES SCREEN [facility] Start: 01-18-2025 Diabetes Screening Diabetes Screening [facility] Start: 08-09-2024 BP Controlled (<130/80) BP Controlled (<130/80) [facility] Start: 08-09-2024 Hepatitis B surface antibody level LDL Cholesterol [facility] Start: 07-05-2024 DIABETES SCREEN DIABETES SCREEN [facility] Start: 07-08-2023 Advance Directive Discussion Advance Directive Discussion [facility] Start: 07-08-2023 Depression Assessment Depression Assessment [facility] Start: 03-08-2023 Covid-19 Vaccine () Covid-19 Vaccine () [facility] Start: 03-08-2023 Influenza vaccination [facility] Start: 01-18-2023 Hepatitis B surface antibody level LDL CHOLESTEROL [facility] Start: 12-02-2022 End: 02-01-2023 Lipid 1996 panel - Serum or Plasma LIPID PANEL BASIC Lab Routine 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) Pure hypercholesterolemia Expected: 12/02/2022, Expires: 02/01/2023 [facility] Work Phone: Comment on above: Expected: 12/02/2022, Expires: 3 Start: 09-01-2022 COVID-19 VACCINE (5 - Moderna series) COVID-19 VACCINE (5 - Moderna series) [facility] Start: 07-08-2022 ADVANCE DIRECTIVE DISCUSSION ADVANCE DIRECTIVE DISCUSSION [facility] Start: 07-08-2022 DEPRESSION ASSESSMENT DEPRESSION ASSESSMENT [facility] Start: 03-08-2022 Influenza vaccination INFLUENZA (#1) [facility] Start: 01-18-2022 End: 03-20-2022 Lipid 1996 panel - Serum or Plasma [facility] Work Phone: Comment on above: Expected: 01/18/2022, Expires: 2 Start: 09-04-2021 COVID-19 VACCINE (4 - Booster for Moderna series) COVID-19 VACCINE (4 - Booster for Moderna series) [facility] Start: 07-08-2021 ADVANCE DIRECTIVE DISCUSSION ADVANCE DIRECTIVE DISCUSSION [facility] Start: 07-08-2021 DEPRESSION ASSESSMENT DEPRESSION ASSESSMENT [facility] Start: 06-30-2021 COVID-19 VACCINE (4 - Booster for Moderna series) COVID-19 VACCINE (4 - Booster for Moderna series) [facility] Start: 06-02-2021 COVID-19 VACCINE (2 - Moderna 3-dose series) COVID-19 VACCINE (2 - Moderna 3-dose series) [facility] Start: 06-02-2021 COVID-19 VACCINE (2 - Moderna series) COVID-19 VACCINE (2 - Moderna series) [facility] Start: 07-10-2020 Urine microalbumin profile DTAP,TDAP,TD (2 - Tdap) [facility] Start: 2011 PNEUMOVAX AGE 65 AND OVER WITH 5YR LOOKBACK (#1) PNEUMOVAX AGE 65 AND OVER WITH 5YR LOOKBACK (#1) [facility] Start: 1996 SHINGRIX VACCINE (1 of 2) SHINGRIX VACCINE (1 of 2) [facility] Start: 1991 COLOGUARD (FIT-DNA) COLOGUARD (FIT-DNA) [facility] Start: 1991 Colonoscopy COLONOSCOPY [facility] Start: 1991 COLORECTAL CANCER SCREENING COLORECTAL CANCER SCREENING [facility] Start: [address] COLONOGRAPHY [facility] Start: 1991 FECAL OCCULT BLOOD FECAL OCCULT BLOOD [facility] Start: 1991 SIGMOIDOSCOPY SIGMOIDOSCOPY [facility] Start: 1981 LIPID SCREEN LIPID SCREEN [facility] Start: 1964 ANNUAL PCP TEAM CHRONIC DISEASE VISIT ANNUAL PCP TEAM CHRONIC DISEASE VISIT [facility] Start: 1964 BP CONTROLLED (<130/80) BP CONTROLLED (<130/80) [facility] Start: 1964 Hepatitis B surface antibody level LDL CHOLESTEROL [facility] Start: 1964 HEPATITIS C SCREENING HEPATITIS C SCREENING [facility] Start: 1964 Hepatitis C screening Hepatitis C Screening [facility] Start: 09-30-1958 Adult depression screening assessment DEPRESSION SCREENING [facility] Start: 1952 PNEUMOCOCCAL: 65+ (1 - PCV) PNEUMOCOCCAL: 65+ (1 - PCV) [facility] End: 08-31-2023 ECG COMPLETE ECG COMPLETE ECG Routine Chronic atrial fibrillation (HCC) 1 Occurrences starting 08/31/2022 until 08/31/2023 [facility] Work Phone: Comment on above: 1 Occurrences starting 08/31/2022 until 08/31/2023 ECG COMPLETE ECG COMPLETE ECG 08/31/2022 8:38 AM EST [facility] ECG COMPLETE [facility] Work Phone: Comment on above: Ordered: 06/07/2023 End: 08-09-2024 Echocardiography ECHO Cardiology Routine S/P AVR Pulmonary hypertension (HCC) 1 Occurrences starting 08/09/2023 until 08/09/2024 [facility] Work Phone: Comment on above: 1 Occurrences starting 08/09/2023 until 08/09/2024 [facility] Immunizations Immunization Date Immunization Notes Care Provider Lisa kwan 05-01-2022 influenza virus vacc ine, unspecified formulation Generic Provider [facility] 05-01-2022 Moderna Bivalent Daniel ster Vaccination Generic Provider [facility] 10-17-2021 tetanus toxoid, redu jim diphtheria toxoid, and acellular pertussis vaccine, adsorbed Generic Provider [facility] 05-05-2021 influenza, high dose seasonal, preservative-free Generic Provider [facility] 04-07-2021 influenza virus vacc ine, unspecified formulation Generic Provider [facility] 09-09-2020 Moderna SARS-CoV-2 Vaccination Generic Provider [facility] 08-12-2020 Moderna SARS-CoV-2 Vaccination Generic Provider [facility] 04-15-2020 influenza, injectabl e, quadrivalent, preservative free Generic Provider [facility] 04-15-2020 Influenza, Seasonal, Quadrivalent, Adjuvanted Generic Provider [facility] 04-07-2020 influenza virus vacc ine, unspecified formulation Generic Provider [facility] 05-02-2019 influenza, high dose seasonal, preservative-free Generic Provider [facility] 05-02-2019 Influenza, High-dose Seasonal, Quadrivalent, Preservative Free Generic Provider [facility] 04-07-2019 influenza virus vacc ine, unspecified formulation Generic Provider [facility] 05-09-2018 influenza, high dose seasonal, preservative-free Dharmesh Bagley MD Work Phone: [facility] Work Phone: 05-09-2018 influenza, injectabl e, quadrivalent, preservative free Generic Provider [facility] 04-20-2018 influenza virus vacc ine, unspecified formulation Dharmesh Bagley MD Work Phone: [facility] Work Phone: 04-20-2018 pneumococcal polysaccharide vaccine, 23 valent Generic Provider [facility] 12-24-2017 zoster vaccine, live Generic Provide r [facility] 12-14-2017 zoster vaccine recombinant Generic Provider [facility] 10-25-2017 zoster vaccine, live Generic Provide r [facility] 10-22-2017 zoster vaccine recombinant Generic Provider [facility] 04-11-2017 influenza, injectabl e, quadrivalent, preservative free Generic Provider [facility] 10-10-2015 pneumococcal conjuga te vaccine, 13 valent Generic Provider [facility] 04-18-2015 influenza, seasonal, injectable, preservative free Generic Provider [facility] 09-27-2014 pneumococcal polysaccharide vaccine, 23 valent Generic Provider [facility] 09-14-2014 zoster vaccine, live Generic Provide r [facility] 04-07-2014 influenza virus vacc ine, unspecified formulation Generic Provider [facility] 04-07-2014 pneumococcal polysaccharide vaccine, 23 valent Generic Provider [facility] 04-07-2014 pneumococcal vaccine , unspecified formulation Generic Provider [facility] 03-31-2012 seasonal influenza, intradermal, preservative free Generic Provider [facility] 07-10-2010 diphtheria, tetanus toxoids and acellular pertussis vaccine Generic Provider [facility] 07-10-2010 diphtheria, tetanus toxoids and acellular pertussis vaccine, unspecified formulation Dharmesh Bagley MD Work Phone: [facility] Work Phone: 07-08-2010 tetanus toxoid, redu jim diphtheria toxoid, and acellular pertussis vaccine, adsorbed Generic Provider [facility] 08-24-2009 novel influenza-H1N1 -09, preservative-free, injectable Generic Provider [facility] Payers Date Payer Category Payer Unknown MMO MMO MEDICARE SUPPLEMENT [id number] 2019-Present [phone] [address] [place] [address] Indemnity [id number] 2019 Unknown [id number] 2011 Medicare [id number] 2011 Medicare [id number] 1959 Medicare [id number] 1959 Self-pay [id number] 1959 Unknown [id number] 1946 Unknown [id number] 1946 Unknown [id number] 1946 Unknown [id number] 1946 Unknown [id number] 1946 Unknown [id number] 1946 Unknown [id number] 1946 Unknown [id number] 1946 Unknown [id number] 1946 Unknown [id number] Unknown [id number] Unknown [id number] Social History Date Type Detail Facility Start: 05-18-2013 End: 12-26-2022 Tobacco smoking status NHIS Never smoked tobacco [facility] Start: 05-18-2013 End: 12-26-2022 Tobacco use and exposure Smokeless tobacco non-user [facility] Start: 08-23-2021 End: 08-09-2023 Alcohol intake Current drinker of alcohol (finding) [facility] Start: 05-29-2021 History SDOH Alcohol Comment rare beer after mowing lawn in summer [facility] Start: 1945 Sex Assigned At Not on file [facility] Start: 1945 Sex Assigned At Male [facility] Start: 01-08-2022 End: 03-01-2022 Exposure to SARS-CoV-2 (event) Not sure [facility] Tobacco smoking status Never [facility] [place] Start: 02-11-2023 End: 04-12-2023 Sex Assigned At Male [facility] Start: 02-11-2023 End: 04-12-2023 History of Social function [facility] Start: 01-13-2022 Gender identity Identifies as male gender (finding) [facility] Start: 01-13-2022 Sexual orientation Heterosexual (finding) [facility] Start: 06-12-2023 Alcohol intake Ex-drinker (finding) [facility] Within the last year , have you been afraid of your partner or ex-partner? No [facility] Do you belong to any clubs or organizations such as oriental orthodox groups, unions, fraternal or athletic groups, or school groups? Yes [facility] Are you now , , , , never or living with a partner? [facility] How often to you hav e a drink containing alcohol? Never [facility] Do you feel stress - tense, restless, nervous, or anxious, or unable to sleep at night because your mind is troubled all the time - these days [OSQ] Not at all [facility] (I/We) worried wheth er (my/our) food would run out before (I/we) got money to buy more. Never true [facility] Start: 04-15-2023 Education 13 [facility] Start: 02-08-2023 Alcohol Comment Caffeine intake: 3 cups decaf per day [facility] Medical Equipment Procedure Code Equipment Code Equipment Origin al Text Equipment Identifier Dates Clip Atriclip Gillinov-Minerva 180d Long 45mm 25mm Internal Head - [id number] Start: 06-19-2021 Loman Thk1.65mm P tfe 4x.5in Cardiovascular Sterile - [id number] Start: 06-19-2021 Ring Hanks Mc3 32mm Titanium Silicone Rubber Polyester Annuloplasty 1 - [id number] Start: 06-19-2021 Valve Hanks In spiris Resilia 25mm Pericardial Aortic Bioprosthesis - [id number] Start: 06-19-2021 Comment on above: Description: avr Functional Status Date Assessment Result Facility 05-22-2022 Functional Status N/A [facility] [place] Clinical Notes 03-23-2021 to 08-09-2023 Ever Goldberg V, MD - 08/09/2023 9:51 AM ESTPatient Amy Golden APRN.CNP - 06/07/2023 9:00 AM ESTTelephone Encounter - Grazyna Bucio RN - 03/04/2023 4:28 PM EDTPatient Instructions Note Date & Type Note Facility 08-09-2023 Note HNO ID: [id number] Author: EVER GOLDBERG MD Service: ? Author Type: Physician Type: Progress Notes Filed: 08/09/2023 10:03 Note Text: Referring Physician: No referring provider defined for this encounter. Primary Care Physician: Austen Ontiveros MD, MD Britta Torres is a 78 year old male that presents today for followup of S/p CABG AVR TVr 2020 for ostial LM , LAD and Cx disease S/p LA clipping PCI Persistent a fib HLD still on 10 mg crestor : labs being done by PCP Pt not aware of his LDL Feels good Exercise : yes No recent echo [ last one 2021 ] Elevated pro bnp in the past ; pulmonary hypertension suspect due to diastolic CHF chronic vs pulmonary vein stenosis Mild noted CT 2013 He is back on low dose asa every other day [ directed by his PCP ] Clinical PI by exam Non smoker but exposure to second hand smoker for years No history of lung disease ASSESSMENT/PLAN: 1. S/P AVR - ICD9: V43.3, ICD10: Z95.2 (primary diagnosis) Echo in [facility] Clinically no stenosis - ECHO 2. 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 Pulmonary hypertension (HCC) - ICD9: 416.8, ICD10: I27.20 Echo ? PV stenosis history of PVI x 2 - ECHO 4. Chronic a-fib (HCC) - ICD9: 427.31, ICD10: I48.20 Per ep Rate is controlled 5. Pure hypercholesterolemia - ICD9: 272.0, ICD10: E78.00 Pending - LIPID PANEL, NONFASTING 6. Other forms of dyspnea - ICD9: 786.09, ICD10: R06.09 - NT PRO BNP Ever Goldberg MD Current Medications: Current Outpatient Medications Medication Sig aspirin, enteric coated (ADULT LOW DOSE ASPIRIN) 81 mg EC tablet Take 1 tablet by mouth every other day. apixaban (ELIQUIS) 5 mg tab(s) Take 1 tablet by mouth twice daily. bisoprolol (ZEBETA) 10 mg tablet Take 2 tablets by mouth once daily. rosuvastatin (CRESTOR) 10 mg tablet Take 1 tablet by mouth once daily. ferrous sulfate (IRON ORAL) Take by mouth. tamsulosin HCl (FLOMAX ORAL) Take 0.4 mg by mouth once daily. CALCIUM CARBONATE/VITAMIN D3 (VITAMIN D-3 ORAL) Take 2,000 Units by mouth twice daily. montelukast 10 mg tablet Take 10 mg by mouth daily at bedtime. MULTIVIT ANDMINERALS/FERROUS FUM (MULTI VITAMIN ORAL) Take by mouth once daily. [place]-3 Fatty Acids-Vitamin E 1,000 mg cap Take 1 capsule by mouth twice daily. acetaminophen (TYLENOL) 325 mg tablet Take 1-2 tablets by mouth every 4 hours as needed for mild to moderate pain No current facility-administered medications for this visit. PHYSICAL EXAMINATION: Vital Signs: Blood Pressure 106/64 (BP Site: Left Arm, BP Position: Sitting) Pulse 62 Respiration 18 Height 185.4 cm (6' 1 ) Weight 84.4 kg (186 lb 1.1 oz) Oxygen Saturation 95% Body Mass Index 24.55 kg/m? Body mass index is 24.55 kg/m?. GENERAL: Alert, oriented., Well appearing. No jaundice, anemia, clubbing, or cyanosis. HEENT: no lymphadenopathy. NECK: no JVD, No masses, or thyromegaly. Good carotid upstrokes. no carotid bruit. No lymphadenopathy. CARDIAC: no significant ; intermittent PI split S2 CHEST: Chest clear to auscultation. ABDOMEN: Soft, nontender, with no obvious organomegaly or masses. No epigastric bruit. EDEMA: trace edema PERIPHERAL PULSES: 2+ SKIN: warm peripheries, no rash. NEURO: no focal neurological deficit ECG today: see epic result Allergies: ALLERGIES Allergen Reactions Deconamine [Chlorph* Unknown Niaspan [Niacin] Unknown Sulfamethoxazole-Tr* Unknown Social History: TOBACCO: see epic ALCOHOL: see epic ROS: Card: See present history. Pulm:No cough or sputum production Gastro:no bowel changes. GenUr:no urinary symptoms. Endo:no chronic fatigue, significant weight loss/gain, heat/cold intolerance. Neuro:no focal weakness, focal sensory loss, headache, visual changes, seizure activity, ataxia, speech/language loss. Rheum:no joint swelling, back pain, knee pain, hip pain, or neck pain. Infect:no fevers, chills, rigors or night sweats. Skin:no rash Heme:no bruising LIPIDS: Triglyceride (mg/dL) Date Value 01/18/2022 60 Cholesterol, Total (mg/dL) Date Value 01/18/2022 166 HDL Cholesterol (mg/dL) Date Value 01/18/2022 55 LDL Cholesterol (mg/dL) Date Value 01/18/2022 99 Ever Goldberg MD [facility] 08-09-2023 History of Present illness Narrative Referring Physician: No referring provider defined for this encounter. Primary Care Physician: Austen Ontiveros MD, MD Britta Torres is a 78 year old male that presents today for followup of S/p CABG AVR TVr 2020 for ostial LM , LAD and Cx disease S/p LA clipping PCI Persistent a fib HLD still on 10 mg crestor : labs being done by PCP Pt not aware of his LDL Feels good Exercise : yes No recent echo [ last one 2021 ] Elevated pro bnp in the past ; pulmonary hypertension suspect due to diastolic CHF chronic vs pulmonary vein stenosis Mild noted CT 2013 He is back on low dose asa every other day [ directed by his PCP ] Clinical PI by exam Non smoker but exposure to second hand smoker for years No history of lung disease ASSESSMENT/PLAN: 1. S/P AVR - ICD9: V43.3, ICD10: Z95.2 (primary diagnosis) Echo in [facility] Clinically no stenosis - ECHO 2. 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 Pulmonary hypertension (HCC) - ICD9: 416.8, ICD10: I27.20 Echo ? PV stenosis history of PVI x 2 - ECHO 4. Chronic a-fib (HCC) - ICD9: 427.31, ICD10: I48.20 Per ep Rate is controlled 5. Pure hypercholesterolemia - ICD9: 272.0, ICD10: E78.00 Pending - LIPID PANEL, NONFASTING 6. Other forms of dyspnea - ICD9: 786.09, ICD10: R06.09 - NT PRO BNP Ever Goldberg MD Current Medications: Current Outpatient Medications Medication Sig aspirin, enteric coated (ADULT LOW DOSE ASPIRIN) 81 mg EC tablet Take 1 tablet by mouth every other day. apixaban (ELIQUIS) 5 mg tab(s) Take 1 tablet by mouth twice daily. bisoprolol (ZEBETA) 10 mg tablet Take 2 tablets by mouth once daily. rosuvastatin (CRESTOR) 10 mg tablet Take 1 tablet by mouth once daily. ferrous sulfate (IRON ORAL) Take by mouth. tamsulosin HCl (FLOMAX ORAL) Take 0.4 mg by mouth once daily. CALCIUM CARBONATE/VITAMIN D3 (VITAMIN D-3 ORAL) Take 2,000 Units by mouth twice daily. montelukast 10 mg tablet Take 10 mg by mouth daily at bedtime. MULTIVIT &MINERALS/FERROUS FUM (MULTI VITAMIN ORAL) Take by mouth once daily. [place]-3 Fatty Acids-Vitamin E 1,000 mg cap Take 1 capsule by mouth twice daily. acetaminophen (TYLENOL) 325 mg tablet Take 1-2 tablets by mouth every 4 hours as needed for mild to moderate pain No current facility-administered medications for this visit. PHYSICAL EXAMINATION: Vital Signs: Blood Pressure 106/64 (BP Site: Left Arm, BP Position: Sitting) Pulse 62 Respiration 18 Height 185.4 cm (6' 1 ) Weight 84.4 kg (186 lb 1.1 oz) Oxygen Saturation 95% Body Mass Index 24.55 kg/m Body mass index is 24.55 kg/m . GENERAL: Alert, oriented., Well appearing. No jaundice, anemia, clubbing, or cyanosis. HEENT: no lymphadenopathy. NECK: no JVD, No masses, or thyromegaly. Good carotid upstrokes. no carotid bruit. No lymphadenopathy. CARDIAC: no significant ; intermittent PI split S2 CHEST: Chest clear to auscultation. ABDOMEN: Soft, nontender, with no obvious organomegaly or masses. No epigastric bruit. EDEMA: trace edema PERIPHERAL PULSES: 2+ SKIN: warm peripheries, no rash. NEURO: no focal neurological deficit ECG today: see epic result Allergies: ALLERGIES Allergen Reactions Deconamine [Chlorph* Unknown Niaspan [Niacin] Unknown Sulfamethoxazole-Tr* Unknown Social History: TOBACCO: see epic ALCOHOL: see epic ROS: Card: See present history. Pulm:No cough or sputum production Gastro:no bowel changes. GenUr:no urinary symptoms. Endo:no chronic fatigue, significant weight loss/gain, heat/cold intolerance. Neuro:no focal weakness, focal sensory loss, headache, visual changes, seizure activity, ataxia, speech/language loss. Rheum:no joint swelling, back pain, knee pain, hip pain, or neck pain. Infect:no fevers, chills, rigors or night sweats. Skin:no rash Heme:no bruising LIPIDS: Triglyceride (mg/dL) Date Value 01/18/2022 60 Cholesterol, Total (mg/dL) Date Value 01/18/2022 166 HDL Cholesterol (mg/dL) Date Value 01/18/2022 55 LDL Cholesterol (mg/dL) Date Value 01/18/2022 99 Ever Goldberg MD documented in this encounter [facility] 06-07-2023 Note HNO ID: [id number] Author: Amy Subramanian APRN.CHIEF REVENUE OFFICER Service: ? Author Type: Nurse Practitioner Type: Progress Notes Filed: 06/07/2023 9:28 AM Note Text: [facility] Department of Cardiovascular Medicine SECTION OF CARDIAC PACING and ELECTROPHYSIOLOGY OUTPATIENT VISIT DATE June 07, 2023 OUTPATIENT VISIT TYPE ESTABLISHED PRIMARY CARE PHYSICIAN: Austen Ontiveros MD [address] [place] [address] CHIEF COMPLAINT: follow up permanent atrial fibrillation HISTORY OF PRESENT ILLNESS: Mr. Torres is a 78 year old male who presents today for followed by Dr. Goldberg, Dr. 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) 06/2021 s/p CABG x3, PECK to LAD, SVG to PDA, left radial artery to obtuse marginal HTN (hypertension) Hyperlipidemia S/P AVR 06/2021 s/p AVR #25 inspiris valve S/P left atrial appendage ligation 06/2021 with bypass surgery S/P Maze operation for atrial fibrillation 06/2021 s/p maze with cryo with bypass surgery S/P tricuspid valve repair 06/2021 annuloplasty band PAST SURGICAL HISTORY Procedure Laterality Date AFIB ABLATION/PULM VEIN ISOLATION 2006 Chanel APPENDECTOMY age 9 ATRIAL FIBRILLATION/FLUTTER ABLATION 12/09/13 CARDIOVERSION 11/02/13, 12/01/2014 PAST SURGICAL HISTORY OF 10/2013 trigger finger release REMOVAL SKIN LESION 0.6-1.0 CM 2004 head JEREMY (TRANSESOPHAGEAL ECHO) 2006 TONSILLECTOMY AND ADENOIDECTOMY SOCIAL HISTORY Social History Tobacco Use Smoking status: Never Smokeless tobacco: Never Substance Use Topics Alcohol use: Yes Comment: rare beer after mowing lawn in summer Drug use: No FAMILY HISTORY Problem Relation Age of Onset Stroke Mother Cancer Father Coronary Artery Disease Sister GI Sister Hypertension Sister Stroke Paternal Grandmother ALLERGIES: ALLERGIES Allergen Reactions Deconamine [Chlorph* Unknown Niaspan [Niacin] Unknown Rosuvastatin Other: See Comments Constipation Sulfamethoxazole-Tr* Unknown MEDICATIONS: apixaban (ELIQUIS) 5 mg tab(s) Take 1 tablet by mouth twice daily. bisoprolol (ZEBETA) 10 mg tablet Take 2 tablets by mouth once daily. rosuvastatin (CRESTOR) 10 mg tablet Take 1 tablet by mouth once daily. ferrous sulfate (IRON ORAL) Take by mouth. acetaminophen (TYLENOL) 325 mg tablet Take 1-2 tablets by mouth every 4 hours as needed for mild to moderate pain aspirin, enteric coated (ADULT LOW DOSE ASPIRIN) 81 mg EC tablet Take 1 tablet by mouth once daily. tamsulosin HCl (FLOMAX ORAL) Take 0.4 mg by mouth once daily. CALCIUM CARBONATE/VITAMIN D3 (VITAMIN D-3 ORAL) Take 2,000 Units by mouth twice daily. fexofenadine (SARAH) 180 mg tablet Take 180 mg by mouth once daily. montelukast 10 mg tablet Take 10 mg by mouth daily at bedtime. MULTIVIT ANDMINERALS/FERROUS FUM (MULTI VITAMIN ORAL) Take by mouth once daily. [place]-3 Fatty Acids-Vitamin E 1,000 mg cap Take 1 capsule by mouth twice daily. REVIEW OF SYSTEMS: GENERAL: Negative for: Weight loss or gain, Fever or Chills, Weakness and Sleep difficulties. NECK: Negative for: Swelling, Pain, Stiffness RESPIRATORY: Negative for: Cough, Blood in Sputum, Shortness of breath, Wheezing, Apnea GASTROINTESTINAL: Negative for: Trouble swallowing, Heartburn, Change in bowel habits, Blood in stool, Dark black stools MUSCULOSKELETAL: Negtive for: Muscle or joint pain, stiffness, Joint swelling NEUROLOGIC/PSYCHIATRIC: Negative for: Weakness, Paralysis, Numbness, Tingling, Tremor, Nervousness or anxiety, Depressed mood, Memory loss SKIN: Negative for: Rash, Itching HEMATOLOGICAL/LYMPHATIC: Ne (more content not included)... [facility] 06-07-2023 Instructions Amy Subramanian APRN.CNP - 06/07/2023 9:12 AM EST Please schedule a follow up with Dr. Bagley in one year Let us know if symptoms reoccur and heart rates sustaining greater than 110 documented in this encounter [facility] 06-07-2023 History of Present illness Narrative Images from the original note were not included. [facility] Department of Cardiovascular Medicine SECTION OF CARDIAC PACING and ELECTROPHYSIOLOGY OUTPATIENT VISIT DATE June 07, 2023 OUTPATIENT VISIT TYPE ESTABLISHED PRIMARY CARE PHYSICIAN: Austen Ontiveros MD [address] [place] [address] CHIEF COMPLAINT: follow up permanent atrial fibrillation HISTORY OF PRESENT ILLNESS: Mr. Torres is a 78 year old male who presents today for followed by Dr. GoldbergDr. Bagley for permanent atrial fibrillation (rate control strategy, [id number]: 2%), known CAD (: s/p CABG x3, PECK to LAD, SVG to PDA, left radial artery to the obtuse marginal 1, TV repair with a ring, AVR with edward inspiris valve, left atrial appendage clip, cryo maze), preserved LV systolic heart function (echo: 2021: EF 56%, pulmonary hypertension RVSP 49mmHg, LA severely dilated), Other PMH of hypertension, hyperlipidemia, intermediate anticoagulation, anemia. 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) 06/2021 s/p CABG x3, PECK to LAD, SVG to PDA, left radial artery to obtuse marginal HTN (hypertension) Hyperlipidemia S/P AVR 06/2021 s/p AVR #25 inspiris valve S/P left atrial appendage ligation 06/2021 with bypass surgery S/P Maze operation for atrial fibrillation 06/2021 s/p maze with cryo with bypass surgery S/P tricuspid valve repair 06/2021 annuloplasty band PAST SURGICAL HISTORY Procedure Laterality Date AFIB ABLATION/PULM VEIN ISOLATION 2007 Chanel APPENDECTOMY age 9 ATRIAL FIBRILLATION/FLUTTER ABLATION 12/09/13 CARDIOVERSION 11/02/13, 12/01/2014 PAST SURGICAL HISTORY OF 10/2013 trigger finger release REMOVAL SKIN LESION 0.6-1.0 CM 2004 head JEREMY (TRANSESOPHAGEAL ECHO) 2006 TONSILLECTOMY & ADENOIDECTOMY <AGE 13 1958 SOCIAL HISTORY Social History Tobacco Use Smoking status: Never Smokeless tobacco: Never Substance Use Topics Alcohol use: Yes Comment: rare beer after mowing lawn in summer Drug use: No FAMILY HISTORY Problem Relation Age of Onset Stroke Mother Cancer Father Coronary Artery Disease Sister GI Sister Hypertension Sister Stroke Paternal Grandmother ALLERGIES: ALLERGIES Allergen Reactions Deconamine [Chlorph* Unknown Niaspan [Niacin] Unknown Rosuvastatin Other: See Comments Constipation Sulfamethoxazole-Tr* Unknown MEDICATIONS: apixaban (ELIQUIS) 5 mg tab(s) Take 1 tablet by mouth twice daily. bisoprolol (ZEBETA) 10 mg tablet Take 2 tablets by mouth once daily. rosuvastatin (CRESTOR) 10 mg tablet Take 1 tablet by mouth once daily. ferrous sulfate (IRON ORAL) Take by mouth. acetaminophen (TYLENOL) 325 mg tablet Take 1-2 tablets by mouth every 4 hours as needed for mild to moderate pain aspirin, enteric coated (ADULT LOW DOSE ASPIRIN) 81 mg EC tablet Take 1 tablet by mouth once daily. tamsulosin HCl (FLOMAX ORAL) Take 0.4 mg by mouth once daily. CALCIUM CARBONATE/VITAMIN D3 (VITAMIN D-3 ORAL) Take 2,000 Units by mouth twice daily. fexofenadine (SARAH) 180 mg tablet Take 180 mg by mouth once daily. montelukast 10 mg tablet Take 10 mg by mouth daily at bedtime. MULTIVIT &MINERALS/FERROUS FUM (MULTI VITAMIN ORAL) Take by mouth once daily. [place]-3 Fatty Acids-Vitamin E 1,000 mg cap Take 1 capsule by mouth twice daily. REVIEW OF SYSTEMS: GENERAL: Negative for: Weight loss or gain, Fever or Chills, Weakness and Sleep difficulties. NECK: Negative for: Swelling, Pain, Stiffness RESPIRATORY: Negative for: Cough, Blood in Sputum, Shortness of breath, Wheezing, Apnea GASTROINTESTINAL: Negative for: Trouble swallowing, Heartburn, Change in bowel habits, Blood in stool, Dark black stools MUSCULOSKELETAL: Negtive for: Muscle or joint pain, stiffness, Joint swelling NEUROLOGIC/PSYCHIATRIC: Negative for: Weakness, Paralysis, Numbness, Tingling, Tremor, Nervousness or anxiety, Depressed mood, Memory loss SKIN: Negative for: Rash, Itching HEMATOLOGICAL/LYMPHATIC: Negative for: Easy bruising, Easy bleeding ENDOCRINE: Negative for: Heat or Cold Intolerance, Excessive Sweating, Frequent Urination, Frequent Thirst PHYSICAL EXAMINATION: General: Well appearing, in no acute distress, speaking in complete sentences. Neck: No jugular venous distention, no carotid bruits, carotids have a normal upstroke Lungs: Clear to auscultation bilaterally, no wheezing or rhonchi. Heart: irregular rhythm, rate normal, no S3, no S4, systolic murmur. Abdomen: Soft, nontender, bowel sounds normal Extremities: No peripheral edema . Grade 2/4 distal pulses bilaterally. Neuro: Oriented to person, place and time, alert, cooperative CARDIOVASCULAR MEDICINE TESTING: Reviewed VS, labs, previous cardiac testing Vitals 01/18/2022 03/01/2022 06/04/2022 08/31/2022 02/11/2023 06/07/2023 SITTING SYSTOLIC 123 142 152 152 142 150 SITTING DIASTOLIC 80 80 70 76 62 80 PULSE 95 110 113 112 80 86 TEMPERATURE RESPIRATIONS WEIGHT in POUNDS 175 lb 180 lb 184 lb 183 lb 6.4 oz 180 lb 186 lb WEIGHT in KILOGRAMS 79.379 kg 81.647 kg 83.462 kg 83.19 kg 81.647 kg 84.369 kg HEIGHT in INCHES 73.504 in. 73.5 in. 73.504 in. 73.504 in. HEIGHT in CM 186.7 cm 186.7 cm 186.7 cm 186.7 cm BP Position BP Site BP Cuff Size SITTING BP 123/80 142/80 152/70 152/76 142/62 150/80 PULSE OX BODY MASS INDEX 22.78 23.42 23.95 23.87 23.42 24.2 IMPRESSION: Mr. 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, h/o anemia, BP high end to normal, he attributes to walking up stairs, into the office fast for appointment, home BP normal range, reviewed the monitor results one episode of atrial fibrillation with RVR in setting of him have sexual relations with per patient no reoccurring patient Discussed with the patient the following; -if heart rates at rest less than 110, with activity its normal for heart rates to increase, if he notices per watch heart rates sustaining greater than 110 at rest and having symptoms then we can add another rate control medication -continue to monitor home BP two to four after medications if greater than 140/90 then will need a second line of medication for hypertension PLAN AND RECOMMENDATIONS: Anticoagulation: apixaban 5mg BID BB: bisoprolol 20mg daily 3. Antiplatelet: asa 81mg every other day (agreeable to restart), continue to monitor 4. Call us if symptom changes 5. I will have monitor results scan into chart Follow up appointment: Dr. Goldberg in August 2023, Dr. Bagley in one year I spent 25 to 30 minutes in the visit, with more than 50% of the total [id number] time of the visit in counseling / coordination of care. CONTACT INFORMATION: Amy Subramanian APRN.CNP, 06/07/23 [facility] Second Floor [address] [place] [address] documented in this encounter [facility] 03-04-2023 Miscellaneous Notes Scripts printed and signed and faxed with office notes. Confirmation received and placed in basket The following approved medication requests have been transmitted electronically. Requested Prescriptions Signed Prescriptions Disp Refills apixaban (ELIQUIS) 5 mg tab(s) 180 tablet 3 Sig: Take 1 tablet by mouth twice daily. Authorizing Provider: AMY SUBRAMANIAN bisoprolol (ZEBETA) 10 mg tablet 180 tablet 3 Sig: Take 2 tablets by mouth once daily. Authorizing Provider: AMY SUBRAMANIAN APRN.CNP Print scripts pended, will ask MAYANK in office ([employer]) to print and sign and will fax once completed Patient asking for new scripts for eliquis and [facility]rol[phone]. [facility] and needs letter of support of why patient is on both medications above. Please fax to [phone]. documented in this encounter [facility] 02-11-2023 Note HNO ID: [id number] Author: Ever Goldberg V, MD Service: ? Author Type: Physician Type: Progress Notes Filed: 02/11/2023 10:01 AM Note Text: Referring Physician: Ever Goldberg [id number] [facility] [id number] Primary Care Physician: Austen Ontiveros MD Britta Torres is a 77 year old male that presents today for followup S/p CABG AVR TVr 2020 [ ostial LM and LAD and ostial cx disease Rate control atrial fibrillation HLD on statin Anemia : stopped asa by pcp : due to blood in stool On DOAC for A fib Feels good Will have labs with PCP Takes iron pills He thought he was taking 20 mg crestor but Rx was for 10 mg ASSESSMENT/PLAN: 1. S/P AVR - ICD9: V43.3, ICD10: Z95.2 (primary diagnosis) Noted Echo reviewed Clinical followup for now AVR intact by exam no significant systolic murmur Diastolic short murmur suspect PI Split S2 due to RBBB 2. 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 Pulmonary hypertension (HCC) - ICD9: 416.8, ICD10: I27.20 Stable Echo periodically 4. Chronic a-fib (HCC) - ICD9: 427.31, ICD10: I48.20 Rate controlled 5. Pure hypercholesterolemia - ICD9: 272.0, ICD10: E78.00 Pending See above Ever Goldberg MD Current Medications: Current Outpatient Medications Medication Sig ELIQUIS 5 mg tab(s) TAKE 1 TABLET BY MOUTH TWICE A DAY rosuvastatin (CRESTOR) 10 mg tablet Take 1 tablet by mouth once daily. bisoprolol (ZEBETA) 10 mg tablet Take 2 tablets by mouth once daily. ferrous sulfate (IRON ORAL) Take by mouth. tamsulosin HCl (FLOMAX ORAL) Take 0.4 mg by mouth once daily. CALCIUM CARBONATE/VITAMIN D3 (VITAMIN D-3 ORAL) Take 2,000 Units by mouth twice daily. montelukast 10 mg tablet Take 10 mg by mouth daily at bedtime. MULTIVIT ANDMINERALS/FERROUS FUM (MULTI VITAMIN ORAL) Take by mouth once daily. [place]-3 Fatty Acids-Vitamin E 1,000 mg cap Take 1 capsule by mouth twice daily. acetaminophen (TYLENOL) 325 mg tablet Take 1-2 tablets by mouth every 4 hours as needed for mild to moderate pain aspirin, enteric coated (ADULT LOW DOSE ASPIRIN) 81 mg EC tablet Take 1 tablet by mouth once daily. fexofenadine (SARAH) 180 mg tablet Take 180 mg by mouth once daily. No current facility-administered medications for this visit. PHYSICAL EXAMINATION: Vital Signs: Blood Pressure 142/62 (BP Site: Left Arm, BP Position: Sitting, BP Cuff Size: Regular Adult) Pulse 80 Height 186.7 cm (6' 1.5 ) Weight 81.6 kg (180 lb) Body Mass Index 23.42 kg/m? Body mass index is 23.42 kg/m?. GENERAL: Alert, oriented., Well appearing. No jaundice, anemia, clubbing, or cyanosis. HEENT: no lymphadenopathy. NECK: No JVD, masses, or thyromegaly. Good carotid upstrokes. No carotid bruit. No lymphadenopathy. CARDIAC: PI split S2 CHEST: Chest clear to auscultation. ABDOMEN: Soft, nontender, with no obvious organomegaly or masses. No epigastric bruit. EDEMA: No edema PERIPHERAL PULSES: 2+ SKIN: warm peripheries, no rash. 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) 06/2021 s/p CABG x3, PECK to LAD, SVG to PDA, left radial artery to obtuse marginal HTN (hypertension) Hyperlipidemia S/P AVR 06/2021 s/p AVR #25 inspiris valve S/P left atrial appendage ligation 06/2021 with bypass surgery S/P Maze operation for atrial fibrillation 06/2021 s/p maze with cryo with bypass surgery S/P tricuspid valve repair 06/2021 annuloplasty band PAST SURGICAL HISTORY Procedure Laterality Date AFIB ABLATION/PULM VEIN ISOLATION 2006 Chanel APPENDECTOMY age 9 ATRIAL FIBRILLATION/FLUTTER ABLATION 12/09/13 CARDIOVERSION 11/02/13, 12/01/2014 PAST SURGICAL HISTORY OF 10/2013 trigger finger release REMOVAL SKIN LESION 0.6-1.0 CM 2004 head JEREMY (TRANSESOPHAGEAL ECHO) 2006 TONSILLECTOMY AND ADENOIDECTOMY Do you need any refills today? Allergies: ALLERGIES Allergen Reactions Deconamine [Chlorph* Unknown Niaspan [Niacin] Unknown Rosuvastatin Other: See Comments Constipation Sulfamethoxazole-Tr* Unknown Social History: TOBACCO: Tobacco Use: Never ALCOHOL: No alcohol consumption ROS: Card: See present history. Pulm:No cough or sputum production Gastro:no bowel changes. GenUr:no urinary symptoms. Endo:no chronic fatigue, significant weight loss/gain, heat/cold intolerance. Neuro:no focal weakness, focal sensory loss, headache, visual changes, seizure activity, ataxia, speech/language loss. Rheum:no joint swelling, ba (more content not included)... [facility] 11-21-2022 Miscellaneous Notes The following approved medication requests have been transmitted electronically. Requested Prescriptions Signed Prescriptions Disp Refills ELIQUIS 5 mg tab(s) 180 tablet 3 Sig: TAKE 1 TABLET BY MOUTH TWICE A DAY Authorizing Provider: DHARMESH BAGLEY Ordering User: BRANDY MCKEON APRN.CNP Received request for refill of the following medications: Requested Prescriptions Pending Prescriptions Disp Refills ELIQUIS 5 mg tab(s) [Pharmacy Med Name: ELIQUIS 5 MG TABLET] 180 tablet 3 Sig: TAKE 1 TABLET BY MOUTH TWICE A DAY Patient requested a 90 day refill. Pharmacy verified and updated accordingly. Patient was last seen in cardiology office: 08/31/2022 Dr. Bagley. Upcoming appointment scheduled: 03/08/2023. Labs: Hemoglobin (g/dL) Date Value 01/18/2022 12.9 07/05/2021 10.1 Hematocrit (%) Date Value 01/18/2022 41.2 07/05/2021 32.2 WBC (k/uL) Date Value 01/18/2022 4.66 07/05/2021 7.13 Platelet Count (k/uL) Date Value 01/18/2022 151 07/05/2021 323 Creatinine Date Value Ref Range Status 01/18/2022 0.95 0.73 - 1.22 mg/dL Final 07/05/2021 1.10 0.73 - 1.22 mg/dL Final documented in this encounter [facility] 08-31-2022 Note HNO ID: [id number] Author: Dharmesh Bagley MD Service: Electrophysiology Author Type: Physician Type: Progress Notes Filed: 09/02/2022 11:32 AM Note Text: [facility] NOTE DEPARTMENT OF CARDIOLOGY ANA MARIA NAME: BRITTA TORRES [facility] NO.: [id number] DATE OF SERVICE: 08/31/2022 PRIMARY CARE PHYSICIAN: Austen Ontiveros M.D. FICTION AND NONFICTION AUTHOR: Dr. Ever Goldberg. Mr. Torres is a 77-year-old male with permanent atrial fibrillation/atrial tachycardia. He is here with his . He is now taking bisoprolol 20 mg daily. He has had no tachy-palpitations or exertional symptoms. He walks about 3 miles daily in an hour and feels well. His PCP discontinued aspirin after he was found to have occult blood in his stool and the test will be repeated down the road. He has had no unexpected bleeding or excessive bruising on anticoagulation. MEDICATIONS: Ferrous sulfate, bisoprolol 20 mg daily, Eliquis 5 mg twice daily, Crestor, Flomax, vitamins, minerals and supplements, Sarah and montelukast. PHYSICAL EXAMINATION: He looks well. Blood pressure 152/76, pulse rate 90 and irregular, with an intermittent pattern of triplets. Lungs: No wheezes or rales. Heart: 1st and 2nd heart sounds normal without S3, gallop or murmur. EKG: Atrial tachycardia with variable response. Complete right bundle-branch block. I see that the triplet pattern is evident on the EKG. An echocardiogram done in January 2022, showed normal left ventricular systolic function (and severe dilatation of the left atrium). The right atrium was also severely dilated. The right ventricle is dilated and right ventricular systolic function was moderately decreased. IMPRESSION AND PLAN: Continue current rate control strategy. I will see him again in 1 year, or sooner p.r.n. DICTATED BY: Clement Urban/Claudy JOB# [id number] [facility] 06-13-2022 Note OPERATIVE NOTE OPERATION DATE: 06/13/2022 PREOPERATIVE DIAGNOSIS: Iron deficiency anemia. POSTOPERATIVE DIAGNOSIS: Normal EGD and colonoscopy. PROCEDURE: EGD and colonoscopy to cecum. SURGEON: Ishaan Dowling M.D. ANESTHESIA: Monitored anesthesia care. ESTIMATED BLOOD LOSS: Zero. INDICATIONS AND CONSENT: Patient is a 77-year-old male, presents for iron deficiency anemia. Indications, risks, benefits, alternatives of proceeding with EGD and colonoscopy were explained extensively to the patient, including the risks of bleeding, aspiration, esophageal/gastric/duodenal or colonic perforation or anesthetic complications. All of his questions were answered. Informed consent was obtained. PROCEDURE: Patient brought to the operating room, placed in the left lateral decubitus position. Monitored anesthesia care was provided. A bite block was placed in the patient's mouth. Scope was inserted into the oropharynx. Under direct visualization, it was advanced into the esophagus, past the cricopharyngeus, down to the stomach. The stomach was insufflated with air. The pylorus was traversed down to the descending portion of the duodenum. There was no evidence of duodenitis or ulceration. There was no scarring within the pyloric channel. The scope was pulled back into the stomach and retroflexed. There was no significant hiatal hernia. The GE junction was noted at approximately 44 cm. There was no distal esophagitis or Bains's changes. Remainder of the esophagus was unremarkable. The scope was then withdrawn. The patient was then positioned for colonoscopy. Rectal exam was performed which showed no masses or blood. Scope was then inserted into the anal canal. Under direct visualization it was advanced. It was advanced to the cecum where cecal markings were clearly identified. Upon withdrawal of the scope, mucosal surfaces were carefully examined. There were no mass lesions or polyps. No inflammatory changes or ulcerations. No significant diverticulosis. The scope was retroflexed in the anal canal. There was no significant hemorrhoidal disease. Scope was then withdrawn. Patient tolerated procedure well, was sent to recovery room in good condition. Follow up screening colonoscopy should be in 10 years, if patient is in good health. CC: Austen Ontiveros M.D. [facility] 06-04-2022 History of Present illness Narrative Referring Physician: SELF Primary Care Physician: Austen Ontiveros MD, MD Hurtadoraza Torres is a 77 year old male that presents today for followup A fib rate control EPS had increased bisoprolol to 20 mg His watch measures his HR and usually controlled; goes up to mid 110s when he walks for exercise No palpitation However he wears it in his left arm [ radial artery used for bypass ? Undercounting On left hand : higher readings [ 90-110 ] CAD s/p CABG 2020 along with AVR for severe and TV repair for TR RAKEL clipping History of PVIs and rhythm management in the past . PCP had lowered his asa to TIW because of persistent anemia Last colonoscopy was over 10 years ago He is scheduled to have one Other than that : he feels fine ; active no symptoms Some stress at home ASSESSMENT/PLAN: 1. 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 S/P AVR (aortic valve replacement) bio - ICD9: V43.3, ICD10: Z95.2 Intact by exam Soft diastolic but pulmonic based on location Split s1 due to RBBB 3. Pulmonary hypertension (HCC) - ICD9: 416.8, ICD10: I27.20 Mild by echo pre and post AVR 4. Chronic a-fib (HCC) - ICD9: 427.31, ICD10: I48.20 Rate is improved 70s while he is in room ; will not adjust for now 5. Pure hypercholesterolemia - ICD9: 272.0, ICD10: E78.00 Repeat in 6 mos Ever Goldberg MD Current Medications: Current Outpatient Medications Medication Sig ferrous sulfate (IRON ORAL) Take by mouth. bisoprolol (ZEBETA) 10 mg tablet TAKE 2 TABLETS BY MOUTH EVERY DAY apixaban (ELIQUIS) 5 mg tab(s) Take 1 tablet by mouth twice daily. rosuvastatin (CRESTOR) 10 mg tablet Take 1 tablet by mouth once daily. aspirin, enteric coated (ADULT LOW DOSE ASPIRIN) 81 mg EC tablet Take 1 tablet by mouth once daily. tamsulosin HCl (FLOMAX ORAL) Take 0.4 mg by mouth once daily. CALCIUM CARBONATE/VITAMIN D3 (VITAMIN D-3 ORAL) Take 2,000 Units by mouth twice daily. fexofenadine (SARAH) 180 mg tablet Take 180 mg by mouth once daily. montelukast 10 mg tablet Take 10 mg by mouth daily at bedtime. MULTIVIT &MINERALS/FERROUS FUM (MULTI VITAMIN ORAL) Take by mouth once daily. [place]-3 Fatty Acids-Vitamin E 1,000 mg cap Take 1 capsule by mouth twice daily. acetaminophen (TYLENOL) 325 mg tablet Take 1-2 tablets by mouth every 4 hours as needed for mild to moderate pain Current Facility-Administered Medications Medication Dose Route Frequency perflutren lipid microspheres 1.3 mL in NaCl (PF) 0.9% 10 mL injection (DEFINITY) INTRAVENOUS DIRECTED PRN sodium chloride 0.9 % (flush) 10 mL (BD POSIFLUSH) 10 mL INTRAVENOUS DIRECTED PRN PHYSICAL EXAMINATION: Vital Signs: Blood Pressure 152/70 Pulse 113 Height 186.7 cm (6' 1.5 ) Weight 83.5 kg (184 lb) Body Mass Index 23.95 kg/m Body mass index is 23.95 kg/m . GENERAL: Alert, oriented., Well appearing. No jaundice, anemia, clubbing, or cyanosis. HEENT: no lymphadenopathy. NECK: No JVD, masses, or thyromegaly. Good carotid upstrokes. No carotid bruit. No lymphadenopathy. CARDIAC: Regular rhythm and Murmur: 07/11 EDM: LSB CHEST: Chest clear to auscultation. ABDOMEN: Soft, nontender, with no obvious organomegaly or masses. No epigastric bruit. EDEMA: No edema PERIPHERAL PULSES: 2+ SKIN: warm peripheries, no rash. 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) 06/2021 s/p CABG x3, PECK to LAD, SVG to PDA, left radial artery to obtuse marginal HTN (hypertension) Hyperlipidemia S/P AVR 06/2021 s/p AVR #25 inspiris valve S/P left atrial appendage ligation 06/2021 with bypass surgery S/P Maze operation for atrial fibrillation 06/2021 s/p maze with cryo with bypass surgery S/P tricuspid valve repair 06/2021 annuloplasty band PAST SURGICAL HISTORY Procedure Laterality Date AFIB ABLATION/PULM VEIN ISOLATION 2006 Chanel APPENDECTOMY age 9 ATRIAL FIBRILLATION/FLUTTER ABLATION 12/09/13 CARDIOVERSION 11/02/13, 12/01/2014 PAST SURGICAL HISTORY OF 10/2013 trigger finger release REMOVAL SKIN LESION 0.6-1.0 CM 2004 head JEREMY (TRANSESOPHAGEAL ECHO) 2007 TONSILLECTOMY & ADENOIDECTOMY <AGE 13 1958 Do you need any refills today? No Allergies: ALLERGIES Allergen Reactions Deconamine [Chlorph* Unknown Niaspan [Niacin] Unknown Rosuvastatin Other: See Comments Constipation Sulfamethoxazole-Tr* Unknown Social History: TOBACCO: Tobacco Use: Never ALCOHOL: No alcohol consumption ROS: Card: See present history. Pulm:No cough or sputum production Gastro:no bowel changes. GenUr:no urinary symptoms. Endo:no chronic fatigue, significant weight loss/gain, heat/cold intolerance. Neuro:no focal weakness, focal sensory loss, headache, visual changes, seizure activity, ataxia, speech/language loss. Rheum:no joint swelling, back pain, knee pain, hip pain, or neck pain. Infect:no fevers, chills, rigors or night sweats. Skin:no rash Heme:no bruising LIPIDS: Triglyceride (mg/dL) Date Value 01/18/2022 60 Cholesterol, Total (mg/dL) Date Value 01/18/2022 166 HDL Cholesterol (mg/dL) Date Value 01/18/2022 55 LDL Cholesterol (mg/dL) Date Value 01/18/2022 99 Ever Goldberg MD documented in this encounter [facility] 05-27-2022 Note Chief Complaint consultation for iron deficiency anemia and positive hemoccult cards HPI Staff 77 year old male presents on consultation from Dr. Ontiveros for iron deficiency anemia and positive Hemoccult cards x 3. Labs completed 01/24- HGB 12.5, HCT 38, PLT 131 and labs 04/25- HGB 12.8, HCT 40.2, PLT 135, Ferritin 72 and Iron 52. Denies abdominal pain. No nausea or vomiting. No bowel changes. Denies rectal bleeding or dark stools. Denies fatigue, dizziness or SOB. Last colonoscopy completed 2009- normal. Patient had CABG 06/19/21- on Eliquis. History of Present Illness 77 yo male with h/o AVR, CABG, htn, atrial fibrillation, on Eliquis, pulmonary htn, asthma, hyperlipidemia, referred for iron deficiency anemia and positive Hemoccult stool, denies change in bms or blood in stools, no melena, no abdominal complaints, no fatigue; last colonoscopy 2009, reportedly wnl; abdominal operations significant for appendectomy; on baby asa and Eliquis, no NSAIDS, no SBE prophylaxis; fmhx of gastric cancer in patient's mother, no fmhx of colon cancer or IBD; no tobacco use. Review of Systems PHQ Score Initial Depression Screen Score: 0 ROS - Provider Constitutional: no fever, no sweats, no weight loss. Eyes: yes glasses, no blurred vision, no visual loss. ENMT: no dentures, no hoarseness, no swallowing difficulties, no hearing loss, no ear infection(s), no nose bleeds. Cardiovascular: normal blood pressure, no chest pain, regular heartbeat, no heart murmur. Respiratory: no shortness of breath, no cough, no asthma, no wheezing. Gastrointestinal: no nausea, no vomiting, no diarrhea, no constipation, no blood in stool, no change in bowel habits, no abdominal pain, no hepatitis. Genitourinary: no kidney stones, no urine infection, no dysuria. Musculoskeletal: mild pain, no weakness. Skin: no changing moles, no rash, no skin lumps. Neurologic: no seizures, no epilepsy, no headache. Psychiatric: no emotional or psychiatric problem. Heme/Lymph: no bleeding problems, no anemia, no blood clots, no transfusions. Allergy/Immunologic: no swollen lymph nodes/glands, no IV drug abuse. Other: Additional ROS info: Except as noted in the above Review of Systems and in the History of Present Illness, all other systems have been reviewed and are negative or noncontributory. Physical Exam Vitals & Measurements HR: 112(Peripheral) RR: 16 BP: 152/78 HT: 74 in HT: 187 cm WT: 83.9 kg WT: 184.58 lb BMI: 23.99 HEENT: normal conjunctiva, sclera clear, no scleral icterus, EOM intact, PERRLA, oral mucosa moist without lesions. Neck: trachea midline, no mass, symmetric, no thyromegaly or nodules, no adenopathy Respiratory: lungs CTA, respirations non labored. Cardiovascular: regular rate and rhythm, no murmur, no pedal edema or varicosities. Gastrointestinal: soft, non distended, no tenderness, no masses, no palpable hernias, diastasis recti no, no hepatosplenomegaly; normal bs Lymphatic: no cervical adenopathy, Musculoskeletal: normal gait, digits and nails without infection, nodes, cyanosis, clubbing. Skin: no rashes, no lesions, no ulcers, no subcutaneous nodules, induration. Psychiatric/Neuro: oriented to time, place, person, judgement normal, affect appropriate for age, insight intact, no focal deficits. Tests: labs reviewed, review of old records completed, Discussed surgical options, risks, and possible complications with patient. Assessment/Plan 1. Positive fecal occult blood test (R19.5: Other fecal abnormalities) plan EGD and colonoscopy under anesthesia for further evaluation, informed consent obtained. hold Eliquis 2 days prior to procedure. 2. Iron deficiency anemia secondary to blood loss (chronic) (D50.0: Iron deficiency anemia secondary to blood loss (chronic)) see # 1 Follow-up No qualifying data available Problem List/Past Medical History Ongoing Anemia Anticoagulated Anxiety and depression Aortic valve sclerosis Aortic valve stenosis Asthma Atrial fibrillation Benign essential hypertension Benign prostatic hyperplasia Bilateral enlargement of atria BMI 23.0-23.9, adult Chronic diastolic heart failure Coronary atherosclerosis HTN - Hypertension Lung granuloma Mixed hyperlipidemia Nodule of lung Non-rheumatic mitral regurgitation Polypharmacy Positive fecal occult blood test Post-inflammatory pulmonary fibrosis Pulmonary hypertension Right bundle branch block Tricuspid stenosis, non-rheumatic Vitamin D deficiency Historical No qualifying data Procedure/Surgical History Annuloplasty of tricuspid valve (06/19/2021), CABG x 3 - Coronary artery bypass grafts x 3 (06/19/2021), Maze procedure (06/19/2021), Replacement of aortic valve (06/19/2021), Cardioversion (2015), right palmar fasciectomy, two locations, thumb and ring finger based (10/05/2013), Cardioversion (2012), Colonoscopy (2009), Appendectomy, Cardiac ablation using fluoroscopy guidance, Cataract extraction, EXCISION LESION, (more content not included)... [facility] Comment on above: Result Comment: Elec tronically Signed By: JOSEY TINEO, Ishaan Bowie.dimitrios\Date and Time Signed: 05/27/22 10:40 EST 05-22-2022 Miscellaneous Notes Called and spoke to patient. He will be seeing Dr. Willams today (doctor doing his procedure) and I gave him our fax # so they can send over any specific forms they prefer. He is aware okay to proceed with procedure per below and hold his eliquis 1-2 days and then resume following procedure. Images from the original note were not included. Agnes Stephens RN Avw Card Rn Orthopaedic; Sowmya Tijerina APRN.CARMEN 18 hours ago (2:47 PM) LS No notes have addressed the patients question regarding gi work up. The Eliquis has not been addressed. Sowmya routed a message only to Danyell Downs. So nobody else saw it until patient called again and then the message was rerouted back to AVW nurses. Original message was on 05/11. Thanks, Agnes I reviewed the message Patient permanent atrial fibrillation GFR January 2022 >60 Patient ok to have colonoscopy and EGD, unsure why would he have to wait a year. Recommendation: ok to hold the apixaban for one to two day prior to the procedure and restart that day ok by GI thank you Amy Subramanian APRN.CNP Patient waiting to hear back about a release from Dr. Bagley to have a colonoscopy and EGD. Does he need to wait a year? He will need to get off the Eliquis. Please call patient to discuss. Patient called to say he needs to get a upper Gi and Lower GI done and his doctor say he had to wait a hole year since he had heart surgery . He is seeing right now. He want to know if that is true or not . Please call the patient if this was true or not . His number is [phone] Thank you so much Quita Miller PSS documented in this encounter [facility] 04-11-2022 Miscellaneous Notes Requested Prescriptions Signed Prescriptions Disp Refills bisoprolol (ZEBETA) 10 mg tablet 60 tablet 3 Sig: TAKE 2 TABLETS BY MOUTH EVERY DAY Authorizing Provider: DHARMESH BAGLEY Ordering User: SONIA BOWLES APRN.CNP April 11, 2022 11:13 AM Received request for refill of the following medications: Requested Prescriptions Pending Prescriptions Disp Refills bisoprolol (ZEBETA) 10 mg tablet [Pharmacy Med Name: BISOPROLOL FUMARATE 10 MG TAB] 60 tablet 3 Sig: TAKE 2 TABLETS BY MOUTH EVERY DAY Patient requested a 90 day refill. Pharmacy verified and updated accordingly. Patient was last seen in cardiology office: 03/01/2022 Dr. Bagley Upcoming appointment scheduled: 06/04/2022. Labs: Hemoglobin (g/dL) Date Value 01/18/2022 12.9 07/05/2021 10.1 Hematocrit (%) Date Value 01/18/2022 41.2 07/05/2021 32.2 WBC (k/uL) Date Value 01/18/2022 4.66 07/05/2021 7.13 Platelet Count (k/uL) Date Value 01/18/2022 151 07/05/2021 323 Creatinine Date Value Ref Range Status 01/18/2022 0.95 0.73 - 1.22 mg/dL Final 07/05/2021 1.10 0.73 - 1.22 mg/dL Final documented in this encounter [facility] 01-18-2022 Instructions Ever Goldberg V, MD - 01/18/2022 9:51 AM EDT Stop metoprolol Start Bisoprolol half a tab for one week ; if HR is still over 100, take whole pill daily [ 10 mg tablet ] Followup with EP team in 6-8 weeks [ office will call you soon ; please call Dr Bagley' office if you dont get this followup appt soon ] documented in this encounter [facility] 01-18-2022 History of Present illness Narrative Referring Physician: Amy Subramanian [address] [facility] [address] Primary Care Physician: Austen Ontiveros MD, MD Britta Torres is a 76 year old male that presents today for followup . I had done cath based on abnormal CT ordered by Dr Bagley He was seeing Dr Bagley for long history of p atrial fibrillation [ reviewed EP notes of Dr Bagley and Amy ] Cath showed surgical disease. I sent pt for limited echo because of concern that is underestimated Repeat echo showed severe and significant TR with RV dilatation He was sent for bypass, PVI , RAKEL clipping AVR and TV repair Post op ECHO 06/2021 ef normal RV mildly dilated He had completed his rehab and is doing fine. Went back to a fib but does not affect him He continues to exercise ; I reviewed recent phone calls regarding HR issue ; beta beth initially held then restarted back ] He claims his HR is around 110-117 but if at rest 90s He is off amlodipine He is functionally better ASSESSMENT/PLAN: 1. 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 Nonrheumatic aortic valve stenosis - ICD9: 424.1, ICD10: I35.0 Echo reviewed 3. S/P AVR (aortic valve replacement) - ICD9: V43.3, ICD10: Z95.2 Intact 4. Pulmonary hypertension (HCC) - ICD9: 416.8, ICD10: I27.20 Noted pre and post surgery ? Due ot long standing a fib and valve disease Will get pro bnp Control hr well Recheck after controlling heart rate Consider diuretic ie aldactone later - NT PRO BNP 5. Atrial fibrillation, persistent (HCC) - ICD9: 427.31, ICD10: I48.19 Followup with EP - CBC - COMP METABOLIC PANEL - NT PRO BNP 6. Chronic diastolic (congestive) heart failure (HCC) - ICD9: 428.32, 428.0, ICD10: I50.32 - NT PRO BNP Ever Goldberg MD Current Medications: Current Outpatient Medications Medication Sig metoprolol tartrate, short acting, (LOPRESSOR) 25 mg tablet Take 25 mg by mouth twice daily. apixaban (ELIQUIS) 5 mg tab(s) Take 1 tablet by mouth twice daily. rosuvastatin (CRESTOR) 10 mg tablet Take 1 tablet by mouth once daily. (Patient taking differently: Take 20 mg by mouth once daily. ) aspirin, enteric coated (ADULT LOW DOSE ASPIRIN) 81 mg EC tablet Take 1 tablet by mouth once daily. tamsulosin HCl (FLOMAX ORAL) Take 0.4 mg by mouth once daily. CALCIUM CARBONATE/VITAMIN D3 (VITAMIN D-3 ORAL) Take 2,000 Units by mouth twice daily. fexofenadine (SARAH) 180 mg tablet Take 180 mg by mouth once daily. montelukast 10 mg tablet Take 10 mg by mouth daily at bedtime. MULTIVIT &MINERALS/FERROUS FUM (MULTI VITAMIN ORAL) Take by mouth once daily. [place]-3 Fatty Acids-Vitamin E (FISH OIL) 1,000 mg cap Take 1 capsule by mouth twice daily. amLODIPine (NORVASC) 2.5 mg tablet Take 1 tablet by mouth once daily. acetaminophen (TYLENOL) 325 mg tablet Take 1-2 tablets by mouth every 4 hours as needed for mild to moderate pain Current Facility-Administered Medications Medication Dose Route Frequency perflutren lipid microspheres 1.3 mL in NaCl (PF) 0.9% 10 mL injection (DEFINITY) INTRAVENOUS DIRECTED PRN sodium chloride 0.9 % (flush) 10 mL (BD POSIFLUSH) 10 mL INTRAVENOUS DIRECTED PRN PHYSICAL EXAMINATION: Vital Signs: Blood Pressure 123/80 Pulse 95 Weight 79.4 kg (175 lb) Body Mass Index 22.78 kg/m Body mass index is 22.78 kg/m . GENERAL: Alert, oriented. HEENT: no lymphadenopathy. NECK: No JVD, masses, or thyromegaly. Good carotid upstrokes. No carotid bruit. No lymphadenopathy. CARDIAC: Irregular rhythm CHEST: Chest clear to auscultation. ABDOMEN: Soft, nontender, with no obvious organomegaly or masses. No epigastric bruit. EDEMA: No edema PERIPHERAL PULSES: 2+ SKIN: warm peripheries, no rash. 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 ([facility]) 06/2021 s/p CABG x3, PECK to LAD, SVG to PDA, left radial artery to obtuse marginal HTN (hypertension) Hyperlipidemia S/P AVR 06/2021 s/p AVR #25 inspiris valve S/P left atrial appendage ligation 06/2021 with bypass surgery S/P Maze operation for atrial fibrillation 06/2021 s/p maze with cryo with bypass surgery S/P tricuspid valve repair 06/2021 annuloplasty band PAST SURGICAL HISTORY Procedure Laterality Date AFIB ABLATION/PULM VEIN ISOLATION 2006 Chanel APPENDECTOMY age 9 ATRIAL FIBRILLATION/FLUTTER ABLATION 12/09/13 CARDIOVERSION 11/02/13, 12/01/2014 PAST SURGICAL HISTORY OF 10/2013 trigger finger release REMOVAL SKIN LESION 0.6-1.0 CM 2004 head JEREMY (TRANSESOPHAGEAL ECHO) 2007 TONSILLECTOMY & ADENOIDECTOMY <AGE 13 1957 Family Cardiac History: CAD / [place]: yes: sister Do you need any refills today? No Allergies: ALLERGIES Allergen Reactions Deconamine [Chlorph* Unknown Niaspan [Niacin] Unknown Rosuvastatin Other: See Comments Constipation Sulfamethoxazole-Tr* Unknown Social History: TOBACCO: Tobacco Use: Never ALCOHOL: No alcohol consumption ROS: Card: See present history. Pulm:No cough or sputum production Gastro:no bowel changes. GenUr:no urinary symptoms. Endo:no chronic fatigue, significant weight loss/gain, heat/cold intolerance. Neuro:no focal weakness, focal sensory loss, headache, visual changes, seizure activity, ataxia, speech/language loss. Rheum:no joint swelling, back pain, knee pain, hip pain, or neck pain. Infect:no fevers, chills, rigors or night sweats. Skin:no rash Heme:no bruising LIPIDS: No results found for: TG, CHOL, HDL, LDL Ever Goldberg MD documented in this encounter [facility] 12-26-2021 Miscellaneous Notes Spoke to the patient in detail regarding below message. He verbalized understanding. He has enough metoprolol to last through his f/u appointment. He is monitoring his heart rate on his fitbit and said it has still been in the 120's. I told him to change positions slowly, and to call us back if his heart rate goes too low (as he states it was in the 30's before on the metoprolol). I did clarify he is only to take 25mg BID. I reviewed the message Recommendation: 1. Patient can restart metoprolol 25mg BID previously prescribed and hold the amlodipine 2. He already prescribed apixaban so continue with this medication 4. Keep follow up appointment 5. He would benefit in purchasing [facility] to check heart rates with symptom changes 6. I will FYI Dr. Bagley 7. If he needs a refill metoprolol let us know thank you Amy Subramanian APRN.CHIEF REVENUE OFFICER Patient calling States for past 10 days he has noticed HR averaging around 125 during the day When he first gets up in the morning HR is 85-90 Afterwards HR increases, even with sitting and remains around 125 BP this morning is 132/80 States he has been feeling fine No fatigue No sob Denies chest pain, palpitations No dizziness or lightheadedness Has been taking Eliquis and Norvasc as listed Patient can be reached at [phone], may leave a message documented in this encounter [facility] 10-23-2021 Miscellaneous Notes Pt called in asking if he is to remain on eliquis, if so he only has 1 week of medication left and is requesting a refill. I did not see this listed under his medications but do see it noted in Dr. Bagley transcribed clinic notes from 09/13/21. If this is to be refilled pt is requesting it be sent to [facility] in [place] ([address] [place] [address], ). If there are any questions or concerns please contact the pt. Thank you! documented in this encounter [facility] 06-20-2021 History of Past i llness Narrative Problem Noted Date Resolved Date Stress hyperglycemia 06/20/2021 06/26/2021 Overview: History: No prior Hx of DM. Postop. Assessment: Perioperative insulin resistance and exacerbation of hyperglycemia. Plan: SSI for glycemic control. Hypervolemia 06/20/2021 06/26/2021 Overview: History: Postop Assessment: Increased vascular markings improving on CXR. Net negative 1.2L in 24 hrs Plan: Continue diuresis; Monitor I&O. Atelectasis 06/19/2021 06/28/2021 Overview: History: Postop. Grade I airway. Assessment: Bibasilar atelectasis on CXR. Adequate oxygenation on room air. Plan: Encourage ambulation, C&DB, PEP, pain control. Postoperative hypotension 06/19/20212020 Overview: History: 06/19/2021: CABG x 3, AVR, TVr, MAZE, LAAC Assessment: Requiring norepinephrine Plan: Titrate to MAPs 65-75 Cardiac insufficiency following cardiac surgery 06/19/2021 06/26/2021 Overview: History: 06/19/2021: CABG x 3, AVR, TVr, MAZE, LAAC. Mild RV dysfunction postop requiring epinephrine, weaned off. Required AV pacing at 80 for optimal hemodynamics (capture threshold 3 mA (atrial) and 2.5 mA (ventricular)) Assessment: Prolonged period of need for AV pacing. Noted to be in AF in under pacer 06/23; remains in AF. Adequate hemodynamics in iroquois rhythm. Echo w/ RV mildly dilated, RV mild dysfunction. Plan: Continue diuresis. Preop testing 05/29/2021 06/28/2021 Overview[facility] Surgeon: Dr. Goncalves Proposed Procedure: CABG, AVR (tissue), MAZE/LAAL +/- TVR Informed Consent Completed: yes STS Score: -- REDO:No CAD: Yes - CAD on Problem List: Yes Is intended procedure a CABG: Yes - is a beta beth ordered? Yes H & P completed: Yes PA/LAT: Completed CT: Completed MRI: N/A LE US: N/A Cath: Yes - reviewed: Yes (ANA MARIA) EKG: Completed Is patient on Amiodarone? No Echo:Completed EF %: 59 PI's: N/A Carotid: Completed Mapping: N/A Dental: EDENTULOUS PFT's: Completed Recent Labs 05/29/21 1040 WBC 5.30 HB 14.7 HCT 46.9 PLT 155 INR 1.2 UA: result negative HCG:N/A ABO/ABO Confirmed: yes Blood ordered: No Willing to accept blood: SA Swab: Yes - NEGATIVE Last Dose of Anticoagulation: Coumadin & OTC last dose- 05/24, ASA to continue Op Note: N/A Pacer Check: NA Implants: no DOMINANT HAND: right-handed Consults: NONE DM: No Cardiac Surgical prep: COVID 05/29/21 result pending SIGNATURE: Danyell Carrizales APRN.CNP DATE of SERVICE: 05/29/2021 TIME of SERVICE: 1:21 PM CHECKED BY: documented as of this encounter (statuses as of 10/23/2021) [facility] History of Past illness Narrative* Problem Noted Date Resolved Date Stress hyperglycemia 06/20/2021 06/26/2021 Overview: History: No prior Hx of DM. Postop. Assessment: Perioperative insulin resistance and exacerbation of hyperglycemia. Plan: SSI for glycemic control. Hypervolemia 06/20/2021 06/26/2021 Overview: History: Postop Assessment: Increased vascular markings improving on CXR. Net negative 1.2L in 24 hrs Plan: Continue diuresis; Monitor I&O. Atelectasis 06/19/2021 06/28/2021 Overview: History: Postop. Grade I airway. Assessment: Bibasilar atelectasis on CXR. Adequate oxygenation on room air. Plan: Encourage ambulation, C&DB, PEP, pain control. Postoperative hypotension 06/19/20212020 Overview: History: 06/19/2021: CABG x 3, AVR, TVr, MAZE, LAAC Assessment: Requiring norepinephrine Plan: Titrate to MAPs 65-75 Cardiac insufficiency following cardiac surgery 06/19/2021 06/26/2021 Overview: History: 06/19/2021: CABG x 3, AVR, TVr, MAZE, LAAC. Mild RV dysfunction postop requiring epinephrine, weaned off. Required AV pacing at 80 for optimal hemodynamics (capture threshold 3 mA (atrial) and 2.5 mA (ventricular)) Assessment: Prolonged period of need for AV pacing. Noted to be in AF in under pacer 06/23; remains in AF. Adequate hemodynamics in iroquois rhythm. Echo w/ RV mildly dilated, RV mild dysfunction. Plan: Continue diuresis. Preop testing 05/29/2021 06/28/2021 Overview: [facility] PRE[facility] Surgeon: Dr. Goncalves Proposed Procedure: CABG, AVR (tissue), MAZE/LAAL +/- TVR Informed Consent Completed: yes STS Score: -- REDO:No CAD: Yes - CAD on Problem List: Yes Is intended procedure a CABG: Yes - is a beta beth ordered? Yes H & P completed: Yes PA/LAT: Completed CT: Completed MRI: N/A LE US: N/A Cath: Yes - reviewed: Yes (ANA MARIA) EKG: Completed Is patient on Amiodarone? No Echo:Completed EF %: 59 PI's: N/A Carotid: Completed Mapping: N/A Dental: EDENTULOUS PFT's: Completed Recent Labs 05/29/21 1040 WBC 5.30 HB 14.7 HCT 46.9 PLT 155 INR 1.2 UA: result negative HCG:N/A ABO/ABO Confirmed: yes Blood ordered: No Willing to accept blood: SA Swab: Yes - NEGATIVE Last Dose of Anticoagulation: Coumadin & OTC last dose- 05/24, ASA to continue Op Note: N/A Pacer Check: NA Implants: no DOMINANT HAND: right-handed Consults: NONE DM: No Cardiac Surgical prep: COVID 05/29/21 result pending SIGNATURE: Danyell Carrizales APRN.CNP DATE of SERVICE: 05/29/2021 TIME of SERVICE: 1:21 PM CHECKED BY: documented as of this encounter (statuses as of 12/26/2021) [facility] History of Past illness Narrative* Problem Noted Date Resolved Date Stress hyperglycemia 06/20/2021 06/26/2021 Overview: History: No prior Hx of DM. Postop. Assessment: Perioperative insulin resistance and exacerbation of hyperglycemia. Plan: SSI for glycemic control. Hypervolemia 06/20/2021 06/26/2021 Overview: History: Postop Assessment: Increased vascular markings improving on CXR. Net negative 1.2L in 24 hrs Plan: Continue diuresis; Monitor I&O. Atelectasis 06/19/2021 06/28/2021 Overview: History: Postop. Grade I airway. Assessment: Bibasilar atelectasis on CXR. Adequate oxygenation on room air. Plan: Encourage ambulation, C&DB, PEP, pain control. Postoperative hypotension 06/19/20212020 Overview: History: 06/19/2021: CABG x 3, AVR, TVr, MAZE, LAAC Assessment: Requiring norepinephrine Plan: Titrate to MAPs 65-75 Cardiac insufficiency following cardiac surgery 06/19/2021 06/26/2021 Overview: History: 06/19/2021: CABG x 3, AVR, TVr, MAZE, LAAC. Mild RV dysfunction postop requiring epinephrine, weaned off. Required AV pacing at 80 for optimal hemodynamics (capture threshold 3 mA (atrial) and 2.5 mA (ventricular)) Assessment: Prolonged period of need for AV pacing. Noted to be in AF in under pacer 06/23; remains in AF. Adequate hemodynamics in iroquois rhythm. Echo w/ RV mildly dilated, RV mild dysfunction. Plan: Continue diuresis. Preop testing 05/29/2021 06/28/2021 Overview: [facility] PRE-[facility] Surgeon: Dr. Goncalves Proposed Procedure: CABG, AVR (tissue), MAZE/LAAL +/- TVR Informed Consent Completed: yes STS Score: -- REDO:No CAD: Yes - CAD on Problem List: Yes Is intended procedure a CABG: Yes - is a beta beth ordered? Yes H & P completed: Yes PA/LAT: Completed CT: Completed MRI: N/A LE US: N/A Cath: Yes - reviewed: Yes (ANA MARIA) EKG: Completed Is patient on Amiodarone? No Echo:Completed EF %: 59 PI's: N/A Carotid: Completed Mapping: N/A Dental: EDENTULOUS PFT's: Completed Recent Labs 05/29/21 1040 WBC 5.30 HB 14.7 HCT 46.9 PLT 155 INR 1.2 UA: result negative HCG:N/A ABO/ABO Confirmed: yes Blood ordered: No Willing to accept blood: SA Swab: Yes - NEGATIVE Last Dose of Anticoagulation: Coumadin & OTC last dose- 05/24, ASA to continue Op Note: N/A Pacer Check: NA Implants: no DOMINANT HAND: right-handed Consults: NONE DM: No Cardiac Surgical prep: COVID 05/29/21 result pending SIGNATURE: Danyell Carrizales APRN.CNP DATE of SERVICE: 05/29/2021 TIME of SERVICE: 1:21 PM CHECKED BY: documented as of this encounter (statuses as of 01/18/2022) [facility] History of Past illness Narrative* Problem Noted Date Resolved Date Stress hyperglycemia 06/20/2021 06/26/2021 Overview: History: No prior Hx of DM. Postop. Assessment: Perioperative insulin resistance and exacerbation of hyperglycemia. Plan: SSI for glycemic control. Hypervolemia 06/20/2021 06/26/2021 Overview: History: Postop Assessment: Increased vascular markings improving on CXR. Net negative 1.2L in 24 hrs Plan: Continue diuresis; Monitor I&O. Atelectasis 06/19/2021 06/28/2021 Overview: History: Postop. Grade I airway. Assessment: Bibasilar atelectasis on CXR. Adequate oxygenation on room air. Plan: Encourage ambulation, C&DB, PEP, pain control. Postoperative hypotension 06/19/20212020 Overview: History: 06/19/2021: CABG x 3, AVR, TVr, MAZE, LAAC Assessment: Requiring norepinephrine Plan: Titrate to MAPs 65-75 Cardiac insufficiency following cardiac surgery 06/19/2021 06/26/2021 Overview: History: 06/19/2021: CABG x 3, AVR, TVr, MAZE, LAAC. Mild RV dysfunction postop requiring epinephrine, weaned off. Required AV pacing at 80 for optimal hemodynamics (capture threshold 3 mA (atrial) and 2.5 mA (ventricular)) Assessment: Prolonged period of need for AV pacing. Noted to be in AF in under pacer 06/23; remains in AF. Adequate hemodynamics in iroquois rhythm. Echo w/ RV mildly dilated, RV mild dysfunction. Plan: Continue diuresis. Preop testing 05/29/2021 06/28/2021 Overview: [facility] PRE[facility] Surgeon: Dr. Goncalves Proposed Procedure: CABG, AVR (tissue), MAZE/LAAL +/- TVR Informed Consent Completed: yes STS Score: -- REDO:No CAD: Yes - CAD on Problem List: Yes Is intended procedure a CABG: Yes - is a beta beth ordered? Yes H & P completed: Yes PA/LAT: Completed CT: Completed MRI: N/A LE US: N/A Cath: Yes - reviewed: Yes (ANA MARIA) EKG: Completed Is patient on Amiodarone? No Echo:Completed EF %: 59 PI's: N/A Carotid: Completed Mapping: N/A Dental: EDENTULOUS PFT's: Completed Recent Labs 05/29/21 1040 WBC 5.30 HB 14.7 HCT 46.9 PLT 155 INR 1.2 UA: result negative HCG:N/A ABO/ABO Confirmed: yes Blood ordered: No Willing to accept blood: SA Swab: Yes - NEGATIVE Last Dose of Anticoagulation: Coumadin & OTC last dose- 05/24, ASA to continue Op Note: N/A Pacer Check: NA Implants: no DOMINANT HAND: right-handed Consults: NONE DM: No Cardiac Surgical prep: COVID 05/29/21 result pending SIGNATURE: Danyell Carrizales APRN.CNP DATE of SERVICE: 05/29/2021 TIME of SERVICE: 1:21 PM CHECKED BY: documented as of this encounter (statuses as of 03/01/2022) [facility]12-14-2021 History of Past illness Narrative* Problem Noted Date Resolved Date Stress hyperglycemia 06/20/2021 06/26/2021 Overview: History: No prior Hx of DM. Postop. Assessment: Perioperative insulin resistance and exacerbation of hyperglycemia. Plan: SSI for glycemic control. Hypervolemia 06/20/2021 06/26/2021 Overview: History: Postop Assessment: Increased vascular markings improving on CXR. Net negative 1.2L in 24 hrs Plan: Continue diuresis; Monitor I&O. Atelectasis 06/19/2021 06/28/2021 Overview: History: Postop. Grade I airway. Assessment: Bibasilar atelectasis on CXR. Adequate oxygenation on room air. Plan: Encourage ambulation, C&DB, PEP, pain control. Postoperative hypotension 06/19/20212020 Overview: History: 06/19/2021: CABG x 3, AVR, TVr, MAZE, LAAC Assessment: Requiring norepinephrine Plan: Titrate to MAPs 65-75 Cardiac insufficiency following cardiac surgery 06/19/2021 06/26/2021 Overview: History: 06/19/2021: CABG x 3, AVR, TVr, MAZE, LAAC. Mild RV dysfunction postop requiring epinephrine, weaned off. Required AV pacing at 80 for optimal hemodynamics (capture threshold 3 mA (atrial) and 2.5 mA (ventricular)) Assessment: Prolonged period of need for AV pacing. Noted to be in AF in under pacer 06/23; remains in AF. Adequate hemodynamics in iroquois rhythm. Echo w/ RV mildly dilated, RV mild dysfunction. Plan: Continue diuresis. Preop testing 05/29/2021 06/28/2021 Overview[facility] Surgeon: Dr. Goncalves Proposed Procedure: CABG, AVR (tissue), MAZE/LAAL +/- TVR Informed Consent Completed: yes STS Score: -- REDO:No CAD: Yes - CAD on Problem List: Yes Is intended procedure a CABG: Yes - is a beta beth ordered? Yes H & P completed: Yes PA/LAT: Completed CT: Completed MRI: N/A LE US: N/A Cath: Yes - reviewed: Yes (ANA MARIA) EKG: Completed Is patient on Amiodarone? No Echo:Completed EF %: 59 PI's: N/A Carotid: Completed Mapping: N/A Dental: EDENTULOUS PFT's: Completed Recent Labs 05/29/21 1040 WBC 5.30 HB 14.7 HCT 46.9 PLT 155 INR 1.2 UA: result negative HCG:N/A ABO/ABO Confirmed: yes Blood ordered: No Willing to accept blood: SA Swab: Yes - NEGATIVE Last Dose of Anticoagulation: Coumadin & OTC last dose- 05/24, ASA to continue Op Note: N/A Pacer Check: NA Implants: no DOMINANT HAND: right-handed Consults: NONE DM: No Cardiac Surgical prep: COVID 05/29/21 result pending SIGNATURE: Danyell Carrizales APRN.CNP DATE of SERVICE: 05/29/2021 TIME of SERVICE: 1:21 PM CHECKED BY: documented as of this encounter (statuses as of 04/11/2022) [facility]12-14-2021 History of Past illness Narrative* Problem Noted Date Resolved Date Stress hyperglycemia 06/20/2021 06/26/2021 Overview: History: No prior Hx of DM. Postop. Assessment: Perioperative insulin resistance and exacerbation of hyperglycemia. Plan: SSI for glycemic control. Hypervolemia 06/20/2021 06/26/2021 Overview: History: Postop Assessment: Increased vascular markings improving on CXR. Net negative 1.2L in 24 hrs Plan: Continue diuresis; Monitor I&O. Atelectasis 06/19/2021 06/28/2021 Overview: History: Postop. Grade I airway. Assessment: Bibasilar atelectasis on CXR. Adequate oxygenation on room air. Plan: Encourage ambulation, C&DB, PEP, pain control. Postoperative hypotension 06/19/20212020 Overview: History: 06/19/2021: CABG x 3, AVR, TVr, MAZE, LAAC Assessment: Requiring norepinephrine Plan: Titrate to MAPs 65-75 Cardiac insufficiency following cardiac surgery 06/19/2021 06/26/2021 Overview: History: 06/19/2021: CABG x 3, AVR, TVr, MAZE, LAAC. Mild RV dysfunction postop requiring epinephrine, weaned off. Required AV pacing at 80 for optimal hemodynamics (capture threshold 3 mA (atrial) and 2.5 mA (ventricular)) Assessment: Prolonged period of need for AV pacing. Noted to be in AF in under pacer 06/23; remains in AF. Adequate hemodynamics in iroquois rhythm. Echo w/ RV mildly dilated, RV mild dysfunction. Plan: Continue diuresis. Preop testing 05/29/2021 06/28/2021 Overview: [facility] Surgeon: Dr. Goncalves Proposed Procedure: CABG, AVR (tissue), MAZE/LAAL +/- TVR Informed Consent Completed: yes STS Score: -- REDO:No CAD: Yes - CAD on Problem List: Yes Is intended procedure a CABG: Yes - is a beta ebth ordered? Yes H & P completed: Yes PA/LAT: Completed CT: Completed MRI: N/A LE US: N/A Cath: Yes - reviewed: Yes (ANA MARIA) EKG: Completed Is patient on Amiodarone? No Echo:Completed EF %: 59 PI's: N/A Carotid: Completed Mapping: N/A Dental: EDENTULOUS PFT's: Completed Recent Labs 05/29/21 1040 WBC 5.30 HB 14.7 HCT 46.9 PLT 155 INR 1.2 UA: result negative HCG:N/A ABO/ABO Confirmed: yes Blood ordered: No Willing to accept blood: SA Swab: Yes - NEGATIVE Last Dose of Anticoagulation: Coumadin & OTC last dose- 05/24, ASA to continue Op Note: N/A Pacer Check: NA Implants: no DOMINANT HAND: right-handed Consults: NONE DM: No Cardiac Surgical prep: COVID 05/29/21 result pending SIGNATURE: Danyell Carrizales APRN.CNP DATE of SERVICE: 05/29/2021 TIME of SERVICE: 1:21 PM CHECKED BY: documented as of this encounter (statuses as of 05/22/2022) [facility]12-14-2021 History of Past illness Narrative* Problem Noted Date Resolved Date Stress hyperglycemia 06/20/2021 06/26/2021 Overview: History: No prior Hx of DM. Postop. Assessment: Perioperative insulin resistance and exacerbation of hyperglycemia. Plan: SSI for glycemic control. Hypervolemia 06/20/2021 06/26/2021 Overview: History: Postop Assessment: Increased vascular markings improving on CXR. Net negative 1.2L in 24 hrs Plan: Continue diuresis; Monitor I&O. Atelectasis 06/19/2021 06/28/2021 Overview: History: Postop. Grade I airway. Assessment: Bibasilar atelectasis on CXR. Adequate oxygenation on room air. Plan: Encourage ambulation, C&DB, PEP, pain control. Postoperative hypotension 06/19/20212020 Overview: History: 06/19/2021: CABG x 3, AVR, TVr, MAZE, LAAC Assessment: Requiring norepinephrine Plan: Titrate to MAPs 65-75 Cardiac insufficiency following cardiac surgery 06/19/2021 06/26/2021 Overview: History: 06/19/2021: CABG x 3, AVR, TVr, MAZE, LAAC. Mild RV dysfunction postop requiring epinephrine, weaned off. Required AV pacing at 80 for optimal hemodynamics (capture threshold 3 mA (atrial) and 2.5 mA (ventricular)) Assessment: Prolonged period of need for AV pacing. Noted to be in AF in under pacer 06/23; remains in AF. Adequate hemodynamics in iroquois rhythm. Echo w/ RV mildly dilated, RV mild dysfunction. Plan: Continue diuresis. Preop testing 05/29/2021 06/28/2021 Overview: [facility] Surgeon: Dr. Goncalves Proposed Procedure: CABG, AVR (tissue), MAZE/LAAL +/- TVR Informed Consent Completed: yes STS Score: -- REDO:No CAD: Yes - CAD on Problem List: Yes Is intended procedure a CABG: Yes - is a beta beth ordered? Yes H & P completed: Yes PA/LAT: Completed CT: Completed MRI: N/A LE US: N/A Cath: Yes - reviewed: Yes (ANA MARIA) EKG: Completed Is patient on Amiodarone? No Echo:Completed EF %: 59 PI's: N/A Carotid: Completed Mapping: N/A Dental: EDENTULOUS PFT's: Completed Recent Labs 05/29/21 1040 WBC 5.30 HB 14.7 HCT 46.9 PLT 155 INR 1.2 UA: result negative HCG:N/A ABO/ABO Confirmed: yes Blood ordered: No Willing to accept blood: SA Swab: Yes - NEGATIVE Last Dose of Anticoagulation: Coumadin & OTC last dose- 05/24, ASA to continue Op Note: N/A Pacer Check: NA Implants: no DOMINANT HAND: right-handed Consults: NONE DM: No Cardiac Surgical prep: COVID 05/29/21 result pending SIGNATURE: Danyell Carrizales APRN.CNP DATE of SERVICE: 05/29/2021 TIME of SERVICE: 1:21 PM CHECKED BY: documented as of this encounter (statuses as of 06/04/2022) [facility]12-14-2021 History of Past illness Narrative* Problem Noted Date Resolved Date Stress hyperglycemia 06/20/2021 06/26/2021 Overview: History: No prior Hx of DM. Postop. Assessment: Perioperative insulin resistance and exacerbation of hyperglycemia. Plan: SSI for glycemic control. Hypervolemia 06/20/2021 06/26/2021 Overview: History: Postop Assessment: Increased vascular markings improving on CXR. Net negative 1.2L in 24 hrs Plan: Continue diuresis; Monitor I&O. Atelectasis 06/19/2021 06/28/2021 Overview: History: Postop. Grade I airway. Assessment: Bibasilar atelectasis on CXR. Adequate oxygenation on room air. Plan: Encourage ambulation, C&DB, PEP, pain control. Postoperative hypotension 06/19/20212020 Overview: History: 06/19/2021: CABG x 3, AVR, TVr, MAZE, LAAC Assessment: Requiring norepinephrine Plan: Titrate to MAPs 65-75 Cardiac insufficiency following cardiac surgery 06/19/2021 06/26/2021 Overview: History: 06/19/2021: CABG x 3, AVR, TVr, MAZE, LAAC. Mild RV dysfunction postop requiring epinephrine, weaned off. Required AV pacing at 80 for optimal hemodynamics (capture threshold 3 mA (atrial) and 2.5 mA (ventricular)) Assessment: Prolonged period of need for AV pacing. Noted to be in AF in under pacer 06/23; remains in AF. Adequate hemodynamics in iroquois rhythm. Echo w/ RV mildly dilated, RV mild dysfunction. Plan: Continue diuresis. Preop testing 05/29/2021 06/28/2021 Overview: [facility] Surgeon: Dr. Goncalves Proposed Procedure: CABG, AVR (tissue), MAZE/LAAL +/- TVR Informed Consent Completed: yes STS Score: -- REDO:No CAD: Yes - CAD on Problem List: Yes Is intended procedure a CABG: Yes - is a beta beth ordered? Yes H & P completed: Yes PA/LAT: Completed CT: Completed MRI: N/A LE US: N/A Cath: Yes - reviewed: Yes (ANA MARIA) EKG: Completed Is patient on Amiodarone? No Echo:Completed EF %: 59 PI's: N/A Carotid: Completed Mapping: N/A Dental: EDENTULOUS PFT's: Completed Recent Labs 05/29/21 1040 WBC 5.30 HB 14.7 HCT 46.9 PLT 155 INR 1.2 UA: result negative HCG:N/A ABO/ABO Confirmed: yes Blood ordered: No Willing to accept blood: SA Swab: Yes - NEGATIVE Last Dose of Anticoagulation: Coumadin & OTC last dose- 05/24, ASA to continue Op Note: N/A Pacer Check: NA Implants: no DOMINANT HAND: right-handed Consults: NONE DM: No Cardiac Surgical prep: COVID 05/29/21 result pending SIGNATURE: Danyell Carrizales APRN.CNP DATE of SERVICE: 05/29/2021 TIME of SERVICE: 1:21 PM CHECKED BY: documented as of this encounter (statuses as of 08/31/2022) [facility]12-14-2021 History of Past illness Narrative* Problem Noted Date Resolved Date Stress hyperglycemia 06/20/2021 06/26/2021 Overview: History: No prior Hx of DM. Postop. Assessment: Perioperative insulin resistance and exacerbation of hyperglycemia. Plan: SSI for glycemic control. Hypervolemia 06/20/2021 06/26/2021 Overview: History: Postop Assessment: Increased vascular markings improving on CXR. Net negative 1.2L in 24 hrs Plan: Continue diuresis; Monitor I&O. Atelectasis 06/19/2021 06/28/2021 Overview: History: Postop. Grade I airway. Assessment: Bibasilar atelectasis on CXR. Adequate oxygenation on room air. Plan: Encourage ambulation, C&DB, PEP, pain control. Postoperative hypotension 06/19/20212020 Overview: History: 06/19/2021: CABG x 3, AVR, TVr, MAZE, LAAC Assessment: Requiring norepinephrine Plan: Titrate to MAPs 65-75 Cardiac insufficiency following cardiac surgery 06/19/2021 06/26/2021 Overview: History: 06/19/2021: CABG x 3, AVR, TVr, MAZE, LAAC. Mild RV dysfunction postop requiring epinephrine, weaned off. Required AV pacing at 80 for optimal hemodynamics (capture threshold 3 mA (atrial) and 2.5 mA (ventricular)) Assessment: Prolonged period of need for AV pacing. Noted to be in AF in under pacer 06/23; remains in AF. Adequate hemodynamics in iroquois rhythm. Echo w/ RV mildly dilated, RV mild dysfunction. Plan: Continue diuresis. Preop testing 05/29/2021 06/28/2021 Overview: [facility] Surgeon: Dr. Goncalves Proposed Procedure: CABG, AVR (tissue), MAZE/LAAL +/- TVR Informed Consent Completed: yes STS Score: -- REDO:No CAD: Yes - CAD on Problem List: Yes Is intended procedure a CABG: Yes - is a beta beth ordered? Yes H & P completed: Yes PA/LAT: Completed CT: Completed MRI: N/A LE US: N/A Cath: Yes - reviewed: Yes (ANA MARIA) EKG: Completed Is patient on Amiodarone? No Echo:Completed EF %: 59 PI's: N/A Carotid: Completed Mapping: N/A Dental: EDENTULOUS PFT's: Completed Recent Labs 05/29/21 1040 WBC 5.30 HB 14.7 HCT 46.9 PLT 155 INR 1.2 UA: result negative HCG:N/A ABO/ABO Confirmed: yes Blood ordered: No Willing to accept blood: SA Swab: Yes - NEGATIVE Last Dose of Anticoagulation: Coumadin & OTC last dose- 05/24, ASA to continue Op Note: N/A Pacer Check: NA Implants: no DOMINANT HAND: right-handed Consults: NONE DM: No Cardiac Surgical prep: COVID 05/29/21 result pending SIGNATURE: Danyell Carrizales APRN.CNP DATE of SERVICE: 05/29/2021 TIME of SERVICE: 1:21 PM CHECKED BY: documented as of this encounter (statuses as of 11/22/2022) [facility]12-14-2021 History of Past illness Narrative* Problem Noted Date Diagnosed Date Resolved Date Stress hyperglycemia 06/20/2021 021 Overview: History: No prior Hx of DM. Postop. Assessment: Perioperative insulin resistance and exacerbation of hyperglycemia. Plan: SSI for glycemic control. Hypervolemia 06/20/2021 06/26/2021 Overview: History: Postop Assessment: Increased vascular markings improving on CXR. Net negative 1.2L in 24 hrs Plan: Continue diuresis; Monitor I&O. Atelectasis 06/19/2021 06/28/2021 Overview: History: Postop. Grade I airway. Assessment: Bibasilar atelectasis on CXR. Adequate oxygenation on room air. Plan: Encourage ambulation, C&DB, PEP, pain control. Postoperative hypotension 06/19/2021 Overview: History: 06/19/2021: CABG x 3, AVR, TVr, MAZE, LAAC Assessment: Requiring norepinephrine Plan: Titrate to MAPs 65-75 Cardiac insufficiency follow ing cardiac surgery 06/19/2021 06/26/2021 Overview: History: 06/19/2021: CABG x 3, AVR, TVr, MAZE, LAAC. Mild RV dysfunction postop requiring epinephrine, weaned off. Required AV pacing at 80 for optimal hemodynamics (capture threshold 3 mA (atrial) and 2.5 mA (ventricular)) Assessment: Prolonged period of need for AV pacing. Noted to be in AF in under pacer 06/23; remains in AF. Adequate hemodynamics in iroquois rhythm. Echo w/ RV mildly dilated, RV mild dysfunction. Plan: Continue diuresis. Preop testing 05/29/2021 06/28/2021 Overview: [facility] Surgeon: Dr. Goncalves Proposed Procedure: CABG, AVR (tissue), MAZE/LAAL +/- TVR Informed Consent Completed: yes STS Score: -- REDO:No CAD: Yes - CAD on Problem List: Yes Is intended procedure a CABG: Yes - is a beta beth ordered? Yes H & P completed: Yes PA/LAT: Completed CT: Completed MRI: N/A LE US: N/A Cath: Yes - reviewed: Yes (ANA MARIA) EKG: Completed Is patient on Amiodarone? No Echo:Completed EF %: 59 PI's: N/A Carotid: Completed Mapping: N/A Dental: EDENTULOUS PFT's: Completed Recent Labs 05/29/21 1040 WBC 5.30 HB 14.7 HCT 46.9 PLT 155 INR 1.2 UA: result negative HCG:N/A ABO/ABO Confirmed: yes Blood ordered: No Willing to accept blood: SA Swab: Yes - NEGATIVE Last Dose of Anticoagulation: Coumadin & OTC last dose- 05/24, ASA to continue Op Note: N/A Pacer Check: NA Implants: no DOMINANT HAND: right-handed Consults: NONE DM: No Cardiac Surgical prep: COVID 05/29/21 result pending SIGNATURE: Danyell Carrizales APRN.CNP DATE of SERVICE: 05/29/2021 TIME of SERVICE: 1:21 PM CHECKED BY: documented as of this encounter (statuses as of 02/13/2023) [facility]12-14-2021 History of Past illness Narrative* Problem Noted Date Diagnosed Date Resolved Date Stress hyperglycemia 06/20/2021 021 Overview: History: No prior Hx of DM. Postop. Assessment: Perioperative insulin resistance and exacerbation of hyperglycemia. Plan: SSI for glycemic control. Hypervolemia 06/20/2021 06/26/2021 Overview: History: Postop Assessment: Increased vascular markings improving on CXR. Net negative 1.2L in 24 hrs Plan: Continue diuresis; Monitor I&O. Atelectasis 06/19/2021 06/28/2021 Overview: History: Postop. Grade I airway. Assessment: Bibasilar atelectasis on CXR. Adequate oxygenation on room air. Plan: Encourage ambulation, C&DB, PEP, pain control. Postoperative hypotension 06/19/2021 Overview: History: 06/19/2021: CABG x 3, AVR, TVr, MAZE, LAAC Assessment: Requiring norepinephrine Plan: Titrate to MAPs 65-75 Cardiac insufficiency follow ing cardiac surgery 06/19/2021 06/26/2021 Overview: History: 06/19/2021: CABG x 3, AVR, TVr, MAZE, LAAC. Mild RV dysfunction postop requiring epinephrine, weaned off. Required AV pacing at 80 for optimal hemodynamics (capture threshold 3 mA (atrial) and 2.5 mA (ventricular)) Assessment: Prolonged period of need for AV pacing. Noted to be in AF in under pacer 06/23; remains in AF. Adequate hemodynamics in iroquois rhythm. Echo w/ RV mildly dilated, RV mild dysfunction. Plan: Continue diuresis. Preop testing 05/29/2021 06/28/2021 Overview: [facility] Surgeon: Dr. Goncalves Proposed Procedure: CABG, AVR (tissue), MAZE/LAAL +/- TVR Informed Consent Completed: yes STS Score: -- REDO:No CAD: Yes - CAD on Problem List: Yes Is intended procedure a CABG: Yes - is a beta beth ordered? Yes H & P completed: Yes PA/LAT: Completed CT: Completed MRI: N/A LE US: N/A Cath: Yes - reviewed: Yes (ANA MARIA) EKG: Completed Is patient on Amiodarone? No Echo:Completed EF %: 59 PI's: N/A Carotid: Completed Mapping: N/A Dental: EDENTULOUS PFT's: Completed Recent Labs 05/29/21 1040 WBC 5.30 HB 14.7 HCT 46.9 PLT 155 INR 1.2 UA: result negative HCG:N/A ABO/ABO Confirmed: yes Blood ordered: No Willing to accept blood: SA Swab: Yes - NEGATIVE Last Dose of Anticoagulation: Coumadin & OTC last dose- 05/24, ASA to continue Op Note: N/A Pacer Check: NA Implants: no DOMINANT HAND: right-handed Consults: NONE DM: No Cardiac Surgical prep: COVID 05/29/21 result pending SIGNATURE: Danyell Carrizales APRN.CNP DATE of SERVICE: 05/29/2021 TIME of SERVICE: 1:21 PM CHECKED BY: documented as of this encounter (statuses as of 03/05/2023) [facility]12-14-2021 History of Past illness Narrative* Problem Noted Date Diagnosed Date Resolved Date Stress hyperglycemia 06/20/2021 021 Overview: History: No prior Hx of DM. Postop. Assessment: Perioperative insulin resistance and exacerbation of hyperglycemia. Plan: SSI for glycemic control. Hypervolemia 06/20/2021 06/26/2021 Overview: History: Postop Assessment: Increased vascular markings improving on CXR. Net negative 1.2L in 24 hrs Plan: Continue diuresis; Monitor I&O. Atelectasis 06/19/2021 06/28/2021 Overview: History: Postop. Grade I airway. Assessment: Bibasilar atelectasis on CXR. Adequate oxygenation on room air. Plan: Encourage ambulation, C&DB, PEP, pain control. Postoperative hypotension 06/19/2021 Overview: History: 06/19/2021: CABG x 3, AVR, TVr, MAZE, LAAC Assessment: Requiring norepinephrine Plan: Titrate to MAPs 65-75 Cardiac insufficiency follow ing cardiac surgery 06/19/2021 06/26/2021 Overview: History: 06/19/2021: CABG x 3, AVR, TVr, MAZE, LAAC. Mild RV dysfunction postop requiring epinephrine, weaned off. Required AV pacing at 80 for optimal hemodynamics (capture threshold 3 mA (atrial) and 2.5 mA (ventricular)) Assessment: Prolonged period of need for AV pacing. Noted to be in AF in under pacer 06/23; remains in AF. Adequate hemodynamics in iroquois rhythm. Echo w/ RV mildly dilated, RV mild dysfunction. Plan: Continue diuresis. Preop testing 05/29/2021 06/28/2021 Overview: [facility] Surgeon: Dr. Goncalves Proposed Procedure: CABG, AVR (tissue), MAZE/LAAL +/- TVR Informed Consent Completed: yes STS Score: -- REDO:No CAD: Yes - CAD on Problem List: Yes Is intended procedure a CABG: Yes - is a beta beth ordered? Yes H & P completed: Yes PA/LAT: Completed CT: Completed MRI: N/A LE US: N/A Cath: Yes - reviewed: Yes (ANA MARIA) EKG: Completed Is patient on Amiodarone? No Echo:Completed EF %: 59 PI's: N/A Carotid: Completed Mapping: N/A Dental: EDENTULOUS PFT's: Completed Recent Labs 05/29/21 1040 WBC 5.30 HB 14.7 HCT 46.9 PLT 155 INR 1.2 UA: result negative HCG:N/A ABO/ABO Confirmed: yes Blood ordered: No Willing to accept blood: SA Swab: Yes - NEGATIVE Last Dose of Anticoagulation: Coumadin & OTC last dose- 05/24, ASA to continue Op Note: N/A Pacer Check: NA Implants: no DOMINANT HAND: right-handed Consults: NONE DM: No Cardiac Surgical prep: COVID 05/29/21 result pending SIGNATURE: Danyell Carrizales APRN.CARMEN DATE of SERVICE: 05/29/2021 TIME of SERVICE: 1:21 PM CHECKED BY: documented as of this encounter (statuses as of 06/07/2023) [facility]12-14-2021 History of Past illness Narrative* Problem Noted Date Diagnosed Date Resolved Date Stress hyperglycemia 06/20/202106/26/ 021 Overview: History: No prior Hx of DM. Postop. Assessment: Perioperative insulin resistance and exacerbation of hyperglycemia. Plan: SSI for glycemic control. Hypervolemia 06/20/2021 06/26/2021 Overview: History: Postop Assessment: Increased vascular markings improving on CXR. Net negative 1.2L in 24 hrs Plan: Continue diuresis; Monitor I&O. Atelectasis 06/19/2021 06/28/2021 Overview: History: Postop. Grade I airway. Assessment: Bibasilar atelectasis on CXR. Adequate oxygenation on room air. Plan: Encourage ambulation, C&DB, PEP, pain control. Postoperative hypotension 06/19/2021 Overview: History: 06/19/2021: CABG x 3, AVR, TVr, MAZE, LAAC Assessment: Requiring norepinephrine Plan: Titrate to MAPs 65-75 Cardiac insufficiency follow ing cardiac surgery 06/19/2021 06/26/2021 Overview: History: 06/19/2021: CABG x 3, AVR, TVr, MAZE, LAAC. Mild RV dysfunction postop requiring epinephrine, weaned off. Required AV pacing at 80 for optimal hemodynamics (capture threshold 3 mA (atrial) and 2.5 mA (ventricular)) Assessment: Prolonged period of need for AV pacing. Noted to be in AF in under pacer 06/23; remains in AF. Adequate hemodynamics in iroquois rhythm. Echo w/ RV mildly dilated, RV mild dysfunction. Plan: Continue diuresis. Preop testing 05/29/2021 06/28/2021 Overview: [facility] Surgeon: Dr. Goncalves Proposed Procedure: CABG, AVR (tissue), MAZE/LAAL +/- TVR Informed Consent Completed: yes STS Score: -- REDO:No CAD: Yes - CAD on Problem List: Yes Is intended procedure a CABG: Yes - is a beta beth ordered? Yes H & P completed: Yes PA/LAT: Completed CT: Completed MRI: N/A LE US: N/A Cath: Yes - reviewed: Yes (ANA MARIA) EKG: Completed Is patient on Amiodarone? No Echo:Completed EF %: 59 PI's: N/A Carotid: Completed Mapping: N/A Dental: EDENTULOUS PFT's: Completed Recent Labs 05/29/21 1040 WBC 5.30 HB 14.7 HCT 46.9 PLT 155 INR 1.2 UA: result negative HCG:N/A ABO/ABO Confirmed: yes Blood ordered: No Willing to accept blood: SA Swab: Yes - NEGATIVE Last Dose of Anticoagulation: Coumadin & OTC last dose- 05/24, ASA to continue Op Note: N/A Pacer Check: NA Implants: no DOMINANT HAND: right-handed Consults: NONE DM: No Cardiac Surgical prep: COVID 05/29/21 result pending SIGNATURE: Danyell Carrizales APRN.CNP DATE of SERVICE: 05/29/2021 TIME of SERVICE: 1:21 PM CHECKED BY: documented as of this encounter (statuses as of 08/09/2023) [facility]09-16-2021 NoteHNO ID: [id number] Author: Sheryl Negrete RN Service: Nursing Author Type: Registered Nurse Type: Nursing Progress Note Filed: 03/22/2021 8:06 AM Note Text: Page sent to Dr. 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 Nonrheumatic aortic valve stenosis Aortic valve disorders S/P AVR (aortic valve replacement) Heart valve replaced by other means Pulmonary hypertension (HCC) Other chronic pulmonary heart diseases Atrial fibrillation, persistent (HCC) Atrial fibrillation Chronic diastolic (congestive) heart failure (HCC) [facility] Diagnosis Atrial fibrillation, persistent (HCC)- Primary Atrial fibrillation documented in this encounter [facility] note* Diagnosis Medication refill [Z76.0 (ICD-10-CM)]- Primary Issue of repeat prescriptions documented in this encounter [facility] note* Diagnosis Medication management [Z79.899 (ICD-10-CM)]- Primary Encounter for long-term (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 other medications documented in this encounter [facility] note* Diagnosis 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 S/P AVR (aortic valve replacement) bio Heart valve replaced by other means Pulmonary hypertension (HCC) Other chronic pulmonary heart diseases Chronic a-fib (HCC) Atrial fibrillation Pure hypercholesterolemia documented in this encounter [facility] note* Diagnosis Chronic atrial fibrillation (HCC)- Primary Atrial fibrillation documented in this encounter [facility] note* Diagnosis Medication refill [Z76.0]- Primary Issue of repeat prescriptions [facility]* Diagnosis Permanent atrial fibrillation (HCC)- Primary Atrial fibrillation Essential hypertension Unspecified essential hypertension documented in this encounter [facility] note* Diagnosis S/P AVR- Primary Heart valve replaced by other means 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 Progress note No data available for this section [facility] General Surgery [employer] Reason for referral (narrative)* Outpatient Procedure (Routine) - Pending Review Specialty Diagnoses / Procedures Referred By Sandhya t [facility] Diagnoses Chronic atrial fibrillation (HCC) Procedures ECG COMPLETE ECG ROUTINE ECG W/LEAST 12 LDS W/I&[place] [address] [place] [address] [facility] [place] [address] [place] [address] Referral ID Status Reason Start Date Expiration Date Visits Requested Visits Authorized [id number] Pending Review Auto-Generat ed Referral 08/31/2022 08/31/2023 1 1 [facility] for referral (narrative)* Outpatient Procedure (Routine) - Pending Review Specialty Diagnoses / Procedures Referred By Contac t Referred To [facility] Diagnoses Permanent atrial fibrillation (HCC) Procedures ECG COMPLETE ECG ROUTINE ECG W/LEAST 12 LDS W/I&R Amy Subramanian APRN.CNP [address] [place] [address] [address] Referral ID Status Reason Start Date Expiration Date Visits Requested Visits Authorized [id number] Pending Review Auto-Generat ed Referral 06/07/2023 06/06/2024 1 1 [facility] for referral (narrative)* Outpatient Procedure (Routine) - Authorized Specialty Diagnoses / Procedures Referred By Contac t Referred To Contact [facility] Diagnoses S/P AVR Pulmonary hypertension (HCC) Procedures ECHO ECHO TTHRC R-T 2D W/WOM-MODE COMPL SPEC&[place] [address] [place] [address] [address] Referral ID Status Reason Start Date Expiration Date Visits Requested Visits Authorized [id number] Authorized Auto-Generat ed Referral 08/09/2023 08/08/2024 [address] 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 Power of Bench Grinder 01/02/2023 1:48 PM Advance Directives and Living Will 12/13/2021 2021-12-11 Power Of Bench Grinder Power of Bench Grinder 12/11/2021 11:29 AM Additional Source Comments (unrecognized sect ion and content) No Status Records FoundNo Status Records FoundNo Status Records FoundNo Status Records FoundNo Status Records FoundNo Status Records Found INFORMATION SOURCE (unrecogn ized section and content) DATE CREATED AUTHOR 04/07/2021 [facility] DATE CREATED AUTHOR AUTHOR'S ORGANIZ ATION 06/18/2022 [facility] DATE CREATED AUTHOR AUTHOR'S ORGANIZ ATION 10/14/2022 [facility] DATE CREATED AUTHOR AUTHOR'S ORGANIZ ATION 06/14/2023 [facility] EPIC DATE CREATED AUTHOR AUTHOR'S ORGANIZ ATION 08/10/2023 [facility] DATE CREATED AUTHOR AUTHOR'S ORGANIZ ATION 08/10/2023 [facility] Source Comments (unrecognize d section and content) In the event this informatio n is protected by the Federal Confidentiality of Alcohol and Drug Abuse Patient Records regulations: The Federal rules restrict any use of the information to criminally investigate or prosecute any alcohol or drug abuse patient.[facility] the event this information is protected by the Federal Confidentiality of Alcohol and Drug Abuse Patient Records regulations: The Federal rules restrict any use of the information to criminally investigate or prosecute any alcohol or drug abuse patient.[facility] the event this information is protected by the Federal Confidentiality of Alcohol and Drug Abuse Patient Records regulations: The Federal rules restrict any use of the information to criminally investigate or prosecute any alcohol or drug abuse patient.[facility] the event this information is protected by the Federal Confidentiality of Alcohol and Drug Abuse Patient Records regulations: The Federal rules restrict any use of the information to criminally investigate or prosecute any alcohol or drug abuse patient.[facility] the event this information is protected by the Federal Confidentiality of Alcohol and Drug Abuse Patient Records regulations: The Federal rules restrict any use of the information to criminally investigate or prosecute any alcohol or drug abuse patient.[facility] the event this information is protected by the Federal Confidentiality of Alcohol and Drug Abuse Patient Records regulations: The Federal rules restrict any use of the information to criminally investigate or prosecute any alcohol or drug abuse patient.[facility] the event this information is protected by the Federal Confidentiality of Alcohol and Drug Abuse Patient Records regulations: The Federal rules restrict any use of the information to criminally investigate or prosecute any alcohol or drug abuse patient.[facility] the event this information is protected by the Federal Confidentiality of Alcohol and Drug Abuse Patient Records regulations: The Federal rules restrict any use of the information to criminally investigate or prosecute any alcohol or drug abuse patient.[facility] the event this information is protected by the Federal Confidentiality of Alcohol and Drug Abuse Patient Records regulations: The Federal rules restrict any use of the information to criminally investigate or prosecute any alcohol or drug abuse patient.[facility] the event this information is protected by the Federal Confidentiality of Alcohol and Drug Abuse Patient Records regulations: The Federal rules restrict any use of the information to criminally investigate or prosecute any alcohol or drug abuse patient.[facility] the event this information is protected by the Federal Confidentiality of Alcohol and Drug Abuse Patient Records regulations: The Federal rules restrict any use of the information to criminally investigate or prosecute any alcohol or drug abuse patient.[facility] the event this information is protected by the Federal Confidentiality of Alcohol and Drug Abuse Patient Records regulations: The Federal rules restrict any use of the information to criminally investigate or prosecute any alcohol or drug abuse patient.[facility] the event this information is protected by the Federal Confidentiality of Alcohol and Drug Abuse Patient Records regulations: The Federal rules restrict any use of the information to criminally investigate or prosecute any alcohol or drug abuse patient.[facility] Reason for Visit (unrecogniz ed section and content) Reason Comments Care Coordination Reason Comments Elevated HR Reason Comments Follow Up Reason Comments Refill Request Reason Comments Patient Question Reason Comments Follow Up Reason Onset Date Comments Refill Request 02/28/2023 Reason Comments Cardiology Follow Up Reason Comments Established Patient Follow-Up 6 mo f/u - odd sensation about once a month/every other month, starts with a tingling sensation to his nose, followed by tingles to chest/abdomen, to his arms and then a chilled sensation and it passes. Does not linger. Happens at rest. Care Teams (unrecognized sec tion and content) Consumer Loan Manager Relationship Specialty Start Date End Date Austen Ontiveros [address] [facility] [place] [address] (Fax) PCP - General Family Practice 02/05/17 Consumer Loan Manager Relationship Specialty Start Date End Date Austen Ontiveros MD [address] [facility] [place] [phone] (Fax) PCP - General Family Practice 02/05/17 Consumer Loan Manager Relationship Specialty Start Date End Date Austen Ontiveros MD [address] [place] [phone] (Fax) PCP - General Family Practice 02/05/17 Consumer Loan Manager Relationship Specialty Start Date End Date Austen Ontiveros MD [address] [place] [phone] (Fax) PCP - General Family Practice 02/05/17 Consumer Loan Manager Relationship Specialty Start Date End Date Austen Ontiveros MD [address] [facility] [place] [address] (Fax) PCP - General Family Medicine 02/05/17 Consumer Loan Manager Relationship Specialty Start Date End Date Austen Ontiveros MD [address] [facility] [address] (Fax) PCP - General Family Medicine 02/05/17 Consumer Loan Manager Relationship Specialty Start Date End Date Austen Ontiveros MD [address] [place] [address] (Fax) PCP - General Family Medicine 02/05/17 Consumer Loan Manager Relationship Specialty Start Date End Date Austen Ontiveros MD [address] [place] [phone] (Fax) PCP - General Family Medicine 02/05/17 Consumer Loan Manager Relationship Specialty Start Date End Date Austen Ontiveros MD [address] [place] [address] (Fax) PCP - General Family Medicine 02/05/17 Consumer Loan Manager Relationship Specialty Start Date End Date Austen Ontiveros MD [address] [place] [phone] (Fax) PCP - General Family Medicine 02/05/17 Consumer Loan Manager Relationship Specialty Start Date End Date Austen Ontiveros MD [address] [place] [phone] (Fax) PCP - General Family Medicine 02/05/17 Consumer Loan Manager Relationship Specialty Start Date End Date Austen Ontiveros MD [address] [place] [address] (Fax) PCP - General Family Medicine 02/05/17 Consumer Loan Manager Relationship Specialty Start Date End Date Austen Ontiveros MD [address] [place] [address] (Fax) PCP - General Family Medicine 02/05/17 Consumer Loan Manager Relationship Specialty Start Date End Date Austen Ontiveros MD [address] [place] [address] PCP - ACO Reach 11/29/22 Austen Ontiveros MD [address] [place] [phone] PCP - General Family Medicine 12/17/22 FOR RECORDS PERTAINING TO PATIENTS WHO ARE OR HAVE BEEN ENROLLED IN A CHEMICAL DEPENDENCY/SUBSTANCEABUSE PROGRAM, SOME INFORMATION MAY BE OMITTED. This clinical summary was aggregated from multiple sources. Caution should be exercised in using it in the provision of clinical care. This summary normalizes information from multiple sources, and as a consequence, information in this document may materially change the coding, format and clinical context of patient data. In addition, data may be omitted in some cases. CLINICAL DECISIONS SHOULD BE BASED ON THE PRIMARY CLINICAL RECORDS. [facility] [employer] [facility]. provides no warranty or guarantee of the accuracy or completeness of information in this document.
== END 2023-09-03 08:25 | disposition home or self-care (01) ==
LOC: LAB 08:25
PROVIDERS: PCP Family Medicine; Visit Provider Family Medicine
DX: R79.89 Other specified abnormal findings of blood chemistry (principal)
CPT/HCPCS: 36415; 83880

== ENCOUNTER 2024-03-27 09:09 | Outpatient (OUT) | payer MEDICARE, OTHER, SELFPAY ==
--- OUTSIDE RECORDS SUMMARY | 2024-03-27 09:30 | XMS_ITS | CCD ---
Author Organization [facility] Care Team Providers Care Budget Assistant Name Role Phone Austen Ontiveros Primary Care Provider [phone] AUSTEN ONTIVEROS Primary Care Physician [phone] Rama TINEO, Austen Lynn Primary Care Provider JOSEY, Ishaan Pierre Attending Unavailable NILL, Ishaan Pierre Attending Unavailable HEMEYERAUSTEN Referring Unavail able NILL, Ishaan Pierre Attending [...] Unavailable NILL ., DR QUIROS Consulting Unavailable BHARATMARE Musa Consulting Unavailable GEMBUS, YEHUDA Consulting Unavailable HEMEYER [...] Unavailable HEMEYER ., DR RAMOS Consulting Unavailable EUGENEYER, AUSTEN Parker Attending Unavailable EVER GOLDBERG Referring Unavailable AUSTEN ONTIVEROS Primary Care Unavailab Austen Marie MD Unavailable Rama TINEO, Austen Primary Care Provider [phone] Rama TINEO, [facility] Primary [facility] Provider EVER GOLDBERG Referring Unavailable [facility] Unavailab PATRICIA Torres Attending Unavailable [facility] Unavailab le NADEEN, MARISOL Attending Unavailable [facility], [facility] Unavailab le SELF Referring Unavailable EVER GOLDBERG Attending Unavailable [facility] Unavailab le NADEEN, MARISOL Referring Unavailable NADEEN, MARISOL Attending Unavailable NADEEN, MARISOL Admitting Unavailable [facility] Unavailab le HEMEYER, [facility] Unavailab le AMY SUBRAMANIAN Attending Unavailable [facility], [facility] Unavailab le NADEEN, MARISOL Referring Unavailable [facility], [facility] Unavailab le NADEEN, MARISOL Referring Unavailable [facility], [facility] Unavailab le NADEEN, MARISOL Referring Unavailable Allergies Allergy Classification Reported Allergen(s) Allergy Type Date of Onset Reaction(s) Facility (20 sources) Chlorpheniramine / Pseudoephedrine; Translations: [CHLORPHENIRAMINE-P SEUDOEPHED] Drug Allergy 07-20-19 14 Unknown [facility] Work Phone: (20 sources) Niacin; Translations: [niacin] Drug Allergy 07-20-19 14 Unknown, Blushing, function (observable entity) [facility] Work Phone: (13 sources) rosuvastatin; Translations: [ROSUVASTATIN] Drug Allergy 08-23-19 22 Other: See Comments [facility] (20 sources) Sulfamethoxazole / Trimethoprim; Translations: [SULFAMETHOXAZOLE-T RIMETHOPRIM] Drug Allergy 07-20-19 14 Unknown [facility] Work Phone: (4 sources) Chlorpheniramine; Translations: [chlorpheniramine] Drug Allergy 12-27-19 23 Bladder retention of urine (observable entity) [facility] [place] (3 sources) guaiFENesin / HYDROcodone / Pseudoephedrine; Translations: [guaifenesin/hydroc odone/pseudoephedri ne] Drug Allergy Bladder retention of urine (observable entity) [facility] [place] (4 sources) HMG-CoA reductase inhibitor; Translations: [statins] Drug allergy 12-27-19 Unknown (qualifier value) [facility] [place] (3 sources) Sulfamethoxazole; Translations: [sulfamethoxazole] Drug Allergy Constipation (disorder) [facility] [place] (4 sources) Trimethoprim; Translations: [trimethoprim] Drug Allergy 12-27-19 Unknown (qualifier value) [facility] [place] (1 source) Niacin; Translations: [Niaspan ER] Drug Allergy [facility] Repository (1 source) black walnut pollen extract Drug Allergy [facility] (1 source) Chlorpheniramine Drug Allergy [facility] Rep[facility] (1 source) Chlorpheniramine / Pseudoephedrine Drug Allergy 05-25-20 13 [facility] (1 source) Niacin Drug Allergy 05-25-20 13 [facility] (1 source) Sulfamethoxazole / Trimethoprim Drug Allergy 05-25-20 13 [facility] (1 source) Sulfonamides (Antibiotic) Drug allergy (disorder) 05-25-20 13 [facility] (1 source) Trimethoprim Drug Allergy [facility] (1 source) Niacin Drug Allergy 12-27-19 [facility] (8 sources) Pseudoephedrine; Translations: [PSEUDOEPHEDRINE] Drug Allergy 12-27-19 Unknown [facility] (1 source) Sulfamethoxazole Allergy to substance 12-27-19 [facility] Medications Current Medications Medication Drug [...] once daily. apixaban 5 mg oral tablet (20 sources) Factor Xa Inhibitor Start: 11-24-2021 End: 03-19-2024 take 1 tablet by mouth twice daily apixaban (ELIQUIS) 5 mg tab(s) Take 1 tablet by mouth two times a day. 180 tablet 3 03/19/2024 Active Comment on above: Take 1 tablet by primo th twice daily. TAKE 1 TABLET BY PRIMO TH TWICE A DAY aspirin 81 mg delayed release oral tablet (20 sources) Platelet Aggregation Inhibitor, Nonsteroidal Anti-inflammatory Drug Start: 06-07-2023 take 1 tablet by mouth every other day aspirin, enteric coated (ADULT LOW DOSE ASPIRIN) 81 mg EC tablet Take 1 tablet by mouth every other day. 06/07/2023 Active Start: 03-30-2021 End: 06-07-2023 take 1 tablet by mouth once daily aspirin, enteric coated (ADULT LOW DOSE ASPIRIN) 81 mg EC tablet Take 1 tablet by mouth once daily. 30 tablet 4 03/30/2021 06/07/2023 Discontinued Comment on above: Take 1 tablet by primo th once daily. Take 1 tablet by primo th every other day. bisoprolol fumarate 10 mg oral tablet (20 sources) beta-Adrenergic Beth Start: 10-20-2022 End: 03-19-2024 take 2 tablets by mouth once daily bisoprolol (ZEBETA) 10 mg tablet Take 2 tablets by mouth once daily. 180 tablet 3 03/19/2024 Active Start: 03-17-2022 End: 04-11-2022 take 2 [...] EVERY DAY Take 2 tablets by mo uth once daily. Calcium Carbonate / vitamin D3 (20 sources) take 2000 [IU] by mouth twice daily CALCIUM CARBONATE/VITAMIN D3 (VITAMIN D-3 ORAL) Take 2,000 Units by mouth twice daily. Active take 2000 [IU] by mouth twice da joshua CALCIUM CARBONATE/VITAMIN D3 (VITAMIN D-3 ORAL) Take 2,000 Units by mouth twice daily. 0 Active Comment on above: Take 2,000 Units by mouth twice daily. CHELATED IRON PO (1 source) CHELATED IRON PO Take by mouth. 0 Active ferrous sulfate (15 sources) ferrous sulfate (IRON ORAL) Take by mouth. Active ferrous sulfate (IRON ORAL) Take by mouth. 0 Active Comment on above: Take by mouth. fexofenadine hydrochloride 180 mg oral tablet (14 sources) Histamine-1 Receptor Antagonist Start: 4 End: 3 take 1 tablet by mouth once daily Sarah 180 mg Tab 1 TAB, Oral, Daily, Refills(s) 0, Allergy symptoms Start Date: 09/22/13 Status: Ordered Comment on above: Take 180 mg by mouth once daily. Fish Oils (3 sources) Start: 2 take 1 capsule by mouth once daily Fish Oil 1200 mg oral capsule 1,200 mg = 1 cap(s), Oral, Daily, Refills(s) 0 Start Date: 05/11/22 Status: Ordered take 1 capsule by mouth once sally ly omega-3 (Fish Oil) 1200 MG capsule Take 1 capsule by mouth 1 (one) time each day at the same time. 0 Active ketorolac tromethamine 5 mg/ml ophthalmic solution (4 sources) Nonsteroidal Anti-inflammatory Drug, Cyclooxygenase Inhibitor Start: 11-26-2023 keTORolac (ACULAR) 0.5 % ophthalmic solution USE DIRECTED BY PHYSICIAN, IN OPERATIVE EYE, BEGINNING ONE DAY AFTER SURGERY 5 mL 11/26/2023 Active metoprolol tartrate 25 mg oral tablet (1 source) beta-Adrenergic Beth End: 01-18-2022 take 1 tablet by mouth twice daily metoprolol tartrate, short acting, (LOPRESSOR) 25 mg tablet Take 25 mg by mouth twice daily. 0 01/18/2022 Discontinued Comment on above: Take 25 mg by mouth twice daily. montelukast 10 mg oral tablet (20 sources) Leukotriene Receptor Antagonist Start: 09-22-2013 End: [...] bedtime. MULTIVIT &MINERALS/FERROUS FUM (MULTI VITAMIN ORAL) (20 sources) MULTIVIT &MINERALS/FERROUS FUM (MULTI VITAMIN ORAL) Take by mouth once daily. Active MULTIVIT &MINERA LS/FERROUS FUM (MULTI VITAMIN ORAL) Take by mouth once daily. 0 Active Comment on above: Take by mouth once d aily. Multivitamins and Minerals (2 sources) Start: 4 take 1 tablet by mouth once daily Multivitamins and Minerals 1 TAB, Oral, Daily, Refill(s) 0, Prophylaxis Start Date: 09/22/13 Status: Ordered Golden Eagle-3 Fatty Acids-Vitamin E 1,000 mg cap (18 sources) take 1 capsule by mouth twice daily Golden Eagle-3 Fatty Acids-Vitamin E 1,000 mg cap Take 1 capsule by mouth twice daily. Active take 1 capsule by mouth twice da joshua Golden Eagle-3 Fatty Acids-Vitamin E 1,000 mg cap Take 1 capsule by mouth twice daily. 0 Active Comment on above: Take 1 capsule by [facility] twice daily. perflutren lipid microspheres 1.3 mL in NaCl (PF) 0.9% 10 mL injection (DEFINITY) (9 sources) Start: 08-23-19 22 End: 11-23-19 23 perflutren lipid microspheres 1.3 mL in NaCl (PF) 0.9% 10 mL injection (DEFINITY) prednisoLONE acetate 10 mg/ml ophthalmic suspension (4 sources) Corticosteroid Start: 11-26-19 24 prednisoLONE acetate (PRED FORTE) 1 % ophthalmic suspension USE DIRECTED BY PHYSICIAN, IN OPERATIVE EYE, BEGINNING ONE DAY AFTER SURGERY 5 mL 11/26/2023 Active rosuvastatin calcium 10 mg oral tablet (20 sources) HMG-CoA Reductase Inhibitor Start: 02-22-20 23 End: 08-20-19 24 take 1 tablet by mouth at bedtime rosuvastatin (Crestor) 20 MG tablet Indications: Mixed dyslipidemia (CMS/HCC) Take 1 tablet (20 mg) by mouth at bedtime. 90 tablet 1 02/21/2023 08/20/2023 Active Start: 10-20-2022 End: 03-19-2024 take 1 tablet by mouth once daily rosuvastatin (CRESTOR) 10 mg tablet Take 1 tablet by mouth once daily. 90 tablet 3 03/19/2024 Active Start: 05-11-2022 take 1 tablet by primo once daily rosuvastatin 20 mg Tab 20 mg = 1 tab(s), Oral, Daily, Refills(s) 0 Start Date: 05/11/22 Status: Ordered Start: 08-23-2021 take 1 tablet by primo th once daily rosuvastatin (CRESTOR) 10 mg tablet Take 1 tablet by mouth once daily. 0 08/23/2021 Active Comment on above: Take 1 tablet by primo th once daily. 125 ml sodium chloride 9 mg/ml prefilled syringe (9 sources) Start: 2 End: 3 sodium chloride 0.9 % (flush) 10 mL (BD POSIFLUSH) tamsulosin hydrochloride 0.4 mg oral capsule (20 sources) alpha-Adrenergic Beth Start: 3 End: 4 take 1 capsule by mouth every twenty-four hours at bedtime tamsulosin (Flomax) 0.4 MG 24 hr capsule Indications: Benign prostatic hyperplasia with urinary hesitancy Take 1 capsule (0.4 mg) by mouth at bedtime. 90 capsule 1 02/21/2023 08/20/2023 Active Start: 05-11-2022 take 1 capsule by mo [facility] once daily Flomax 0.4 mg Cap 0.4 [...] Sig (Original) acetaminophen 325 mg oral tablet (16 sources) Start: 06-29-2021 End: 11-14-2023 take 325-650 mg by mouth every four hours as needed acetaminophen (TYLENOL) 325 mg tablet Take 1-2 tablets by mouth every 4 hours as needed for mild to moderate pain 30 tablet 0 06/29/2021 11/14/2023 Discontinued Comment on above: Take 1-2 tablets by mouth every 4 hours as needed for mild to moderate pain benoxinate hydrochloride 4 mg/ml / fluorescein sodium 3 mg/ml ophthalmic solution (1 source) Diagnostic Dye Start: 09-03-2023 End: 09-04-2023 fluorescein-benoxi otoniel 0.3-0.4 % 1 Drop (FLURESS) Golden Eagle-3 Fatty Acids-Vitamin E (FISH OIL) 1,000 mg cap (3 sources) take 1 capsule by mouth twice daily Golden Eagle-3 Fatty Acids-Vitamin E (FISH OIL) 1,000 mg cap Take 1 capsule by mouth twice daily. 0 Active Comment on above: Take 1 capsule by mo [facility] twice daily. tropicamide 10 mg/ml ophthalmic solution (1 source) Anticholinergic Start: 09-03-2023 End: 09-04-2023 tropicamide 1 % 1 Drop (MYDRIACYL) Problems Active Problems Problem Classification Problem Date Documented Date Episodic/Chronic Adjustment disorders (1 source) Adjustment disorder with mixed emotional features; Translations: [Adjustment disorder with other symptoms] Onset: 04-08-2017 01-15-2023 Chronic Asthma (4 sources) Asthma; Translations: [Unspecified asthma, uncomplicated] Onset: 06-17-2022 09-22-2013 Chronic Cardiac dysrhythmias (20 sources) Chronic atrial fibrillation; Translations: [Chronic atrial fibrillation, unspecified] Onset: 05-18-2013 06-29-2021 Chronic Cataract (9 sources) Bilateral age-related nuclear cataracts; Translations: [Age-related nuclear cataract, bilateral] Onset: 05-30-2015 12-26-2022 Chronic Complication of device; implant or graft (1 source) Arteriosclerosis of coronary artery bypass graft; Translations: [Atherosclerosis of coronary artery bypass graft(s) without angina pectoris] 03-16-2024 Chronic Conduction disorders (3 sources) Right bundle branch block; Translations: [Unspecified right bundle-branch block] Onset: 12-26-2022 05-11-2022 Chronic Congestive heart failure; nonhypertensive (4 sources) Chronic diastolic heart failure; Translations: [Chronic diastolic (congestive) heart failure] Onset: 01-18-2022 Chronic Coronary atherosclerosis and other heart disease (20 sources) Coronary atherosclerosis; Translations: [Atherosclerotic heart disease of [place] coronary artery with unspecified angina pectoris] Onset: 05-29-2021 06-29-2021 Chronic Disorders of lipid metabolism (20 sources) Hyperlipidemia; Translations: [Hyperlipidemia, unspecified] Onset: 05-29-2021 05-29-2021 Chronic Essential hypertension (20 sources) Hypertensive disorder; Translations: [Essential (primary) hypertension] Onset: 11-23-2013 06-29-2021 Chronic Heart valve disorders (20 sources) Aortic valve stenosis; Translations: [Nonrheumatic aortic (valve) stenosis] Onset: 05-29-2021 06-29-2021 Chronic Hyperplasia of prostate (20 sources) Lower urinary tract symptoms due to [...] (1 source) Patient encounter status; Translations: [Other rn long term care (current) drug therapy] Episodic Other aftercare (2 sources) Long-term current use of anticoagulant; Translations: [manager terminal (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 anticoagulants] Onset: 05-28-2016 01-15-2023 Episodic Other and ill-defined heart disease (3 [...] dyspnea] Onset: 08-09-2023 Episodic Pulmonary heart disease (20 sources) Pulmonary hypertension; Translations: [Pulmonary hypertension, unspecified] [...] [CONTACT W/AND (SUSP) EXPOS COVID-19] Onset: 06-16-2022 Unclassified (1 source) Chronic atrial fibrillation, unspecified; Translations: [Chronic a-fib (HCC)] Onset: 06-29-2021 Unclassified (1 source) Permanent atrial fibrillation; Translations: [Permanent atrial fibrillation (HCC)] Onset: 06-07-2023 Past or Other Problems Problem Classification Problem Date Documented Da te Episodic/Chronic Acute and unspecified renal failure (20 sources) Acute injury of kidney; Translations: [Acute kidney failure, unspecified] Onset: 06-22-2021 06-29-2021 Episodic Administrative/social admission (20 sources) Discharge status; Translations: [Encounter for administrative examinations, unspecified] Onset: 05-29-2021 06-28-2021 Episodic Anxiety disorders (3 sources) Mixed anxiety and depressive disorder; Translations: [Adjustment disorder with mixed anxiety and depressed mood] Onset: 12-26-2022 Resolved: 01-02-2023 05-11-2022 Chronic Complications of surgical procedures or medical care (6 sources) Cardiac insufficiency following cardiac surgery; Translations: [Postprocedural cardiac insufficiency following cardiac surgery] Onset: 06-19-2021 Resolved: 06-26-2021 06-26-2021 Chronic Complications of surgical procedures or medical care (6 sources) Hypotension following procedure; Translations: [Postprocedural hypotension] Onset: 06-19-2021 Resolved: 06-21-2021 06-21-2021 Episodic Deficiency and other anemia (4 sources) Iron deficiency anemia, unspecified; Translations: [IRON DEFICIENCY ANEMIA UNSPECIFIED] Onset: 06-13-2022 Episodic Deficiency and other anemia (6 sources) Iron deficiency anemia; Translations: [Iron deficiency anemia, unspecified] Onset: 06-13-2022 11-14-2023 Episodic Diabetes mellitus without complication (6 sources) Metabolic stress hyperglycemia; Translations: [Hyperglycemia, unspecified] Onset: 06-20-2021 Resolved: 06-26-2021 06-26-2021 Episodic Fluid and electrolyte disorders (6 sources) Hypervolemia; Translations: [Fluid overload, unspecified] Onset: 06-20-2021 Resolved: 06-26-2021 06-26-2021 Episodic Heart valve disorders (1 source) Heart murmur; Translations: [Cardiac murmur, unspecified] Onset: 12-26-2022 12-26-2022 Episodic Mood disorders (1 source) Mood disorders Onset: 01-02-2023 01-02-2023 Nutritional deficiencies (4 sources) Iron deficiency; Translations: [IRON DEFICIENCY] Onset: 04-25-2022 Episodic Other aftercare (1 source) USP (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 anticoagulants; Translations: [LICENSED NURSING ASSISTANT CURRNT USE ANTICOAGULANTS] Onset: 06-17-2022 Episodic Other aftercare (1 source) manager terminal (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 aspirin; Translations: [LICENSED NURSING ASSISTANT CURRENT USE OF ASPIRIN] Onset: 06-17-2022 Episodic Other aftercare (1 source) Other [facility] (current[facility] drug therapy; Translations: [OTH LICENSED NURSING ASSISTANT CURRENT DRUG THERAPY] Onset: 06-17-2022 Episodic Other aftercare (1 source) Polypharmacy ; Translations: [Other [place] [facility] (current) drug therapy] Onset: 08-11-2020 01-15-2023 Episodic Other bone disease and musculoskeletal deformities (1 source) Disorder of bone; Translations: [Other specified disorders of bone density and structure, right thigh] Onset: 12-26-2022 12-26-2022 Episodic Other lower respiratory disease (20 sources) Dyspnea on exertion; Translations: [Dyspnea, unspecified] Onset: 03-30-2021 03-30-2021 Episodic Other lower respiratory disease (3 sources) Nodule of lung; Translations: [Solitary pulmonary nodule] Onset: 12-26-2022 05-11-2022 Episodic Other nervous system disorders (20 sources) Postoperative pain ; Translations: [Other acute postprocedural pain] Onset: 06-19-2021 06-29-2021 Episodic Pleurisy; pneumothorax; pulmonary collapse (6 sources) Atelectasis; Translations: [Atelectasis] Onset: 06-19-2021 Resolved: 06-28-2021 06-28-2021 Episodic Residual codes; unclassified (20 sources) History of cardioversion; Translations: [Other specified postprocedural states] Onset: 05-29-2021 05-29-2021 Episodic Residual codes; unclassified (1 source) Family history of coronary arteriosclerosis; Translations: [Family history of ischemic heart disease and other diseases of the circulatory system] Onset: 05-28-2016 01-15-2023 Episodic Residual codes; unclassified (2 sources) Other specified health status; Translations: [Other specified conditions influencing health status] Onset: 05-28-2016 01-15-2023 Episodic Residual codes; unclassified (1 source) Personal history of other medical treatment; Translations: [History of cardioversion] Onset: 05-29-2021 Episodic Results Test Name Value Interpretation Reference Range Facility [facility] 03-19-2024 MALACHI Telephone (TALIB) -------- BRITTA TORRES ([id number]) 1945 M Date Time Provider Department 03/19/24 PATRICIA ARCHER During your visit today, we recorded the following information about you: Sowmya Kelley 03/19/2024 3:24 PM Signed Britta is calling Patricia Archer APRN.CNP today saying that the 3 prescriptions sent on 03/16/24 went to the wrong pharmacy. Meds is for his but Britta's have to go to [place]. [facility] fax [phone]. Please advise. Patient has been identified by name and birthdate. Duration of symptoms: N/A Person calling: self Call patient at: on cell [phone] (home) [phone] (cell) Was an appointment scheduled: No Closing statement: Results or non-symptom based questions: Thank you for calling [facility], your call will be returned within the next business day. - Sowmya Dunn - Grazyna Bucoi RN 03/19/2024 3:38 PM Signed Pended scripts, will ask Brandy Mckeon CNP in office for help Brandy Mckeon APRN.CNP 03/19/2024 3:40 PM Signed The following approved medication requests have been transmitted electronically. Requested Prescriptions Signed Prescriptions Disp Refills apixaban (ELIQUIS) 5 mg tab(s) 180 tablet 3 Sig: Take 1 tablet by mouth two times a day. Authorizing Provider: BRNADY MCKEON bisoprolol (ZEBETA) 10 mg tablet 180 tablet 3 Sig: Take 2 tablets by mouth once daily. Authorizing Provider: BRANDY MCKEON rosuvastatin (CRESTOR) 10 mg tablet 90 tablet 3 Sig: Take 1 tablet by mouth once daily. Authorizing Provider: BRANDY MCKEON APRN.CNP Prososki, Kelly, RN 03/19/2024 3:55 PM Signed Scripts faxed to number provided with confirmation. Called patient and updated him, pt thankful Allergies As of Date: 03/19/2024 Noted Allergy Reaction DECONAMINE (CHLORPHENIRAMINE-PSEU*0 07/20/2013 16 - Unknown NIASPAN (NIACIN) 07/20/2013 16 - Unknown PSEUDOEPHEDRINE 12/26/2022 16 - Unknown Comments: Other Reaction(s): Urinary Retention SULFAMETHOXAZOLE-TRIMETH OPRIM 07/20/2013 16 - Unknown Date Reviewed: 03/16/2024 Reviewed by: Torri Hill RN - Fully Assessed Reason for Visit: Medication Problem [65] Primary Visit Diagnosis:Current use of rn long term care anticoagulation [Z79.01] Order(s):apixaban (ELIQUIS) 5 mg tab(s)Take 1 tablet by mouth two times a day.Disp: 180 tabletRfl: 3 bisoprolol (ZEBETA) 10 mg tabletTake 2 tablets by mouth once daily.Disp: 180 tabletRfl: 3 rosuvastatin (CRESTOR) 10 mg tabletTake 1 tablet by mouth once daily.Disp: 90 tabletRfl: 3 COMPLETE BLOOD COUNT [SQCBC] Order #: [id number] FUTURE Prescriptions as of 03/19/2024 - apixaban (ELIQUIS) 5 mg tab(s) Take 1 tablet by mouth two times a day. - bisoprolol (ZEBETA) 10 mg tablet Take 2 tablets by mouth once daily. - rosuvastatin (CRESTOR) 10 mg tablet Take 1 tablet by mouth once daily. - prednisoLONE acetate (PRED FORTE) 1 % ophthalmic suspension USE DIRECTED BY PHYSICIAN, IN OPERATIVE EYE, BEGINNING ONE DAY AFTER SURGERY - keTORolac (ACULAR) 0.5 % ophthalmic solution USE DIRECTED BY PHYSICIAN, IN OPERATIVE EYE, BEGINNING ONE DAY AFTER SURGERY - aspirin, enteric coated (ADULT LOW DOSE ASPIRIN) 81 mg EC tablet Take 1 tablet by mouth every other day. - ferrous sulfate (IRON ORAL) Take by mouth. - tamsulosin HCl (FLOMAX ORAL) Take 0.4 mg by mouth once daily. - CALCIUM CARBONATE/VITAMIN D3 (VITAMIN D-3 ORAL) Take 2,000 Units by mouth twice daily. - montelukast 10 mg tablet Take 10 mg by mouth daily at bedtime. - MULTIVIT ANDMINERALS/FERROUS FUM (MULTI VITAMIN ORAL) Take by mouth once daily. - Golden Eagle-3 Fatty Acids-Vitamin E 1,000 mg cap Take 1 capsule by mouth twice daily. Problem List As Of Date 03/19/2024 Noted Resolved Chronic a-fib (HCC) [I48.20] 05/18/2013 Pulmonary hypertension [I27.20] 05/18/2013 HTN (hypertension) [I10] 11/23/2013 SRIVASTAVA (dyspnea on exertion) [R06.09] 03/30/2021 Lower urinary tract symptoms due to benign pros*06/12/2020 Discharge planning issues [Z75.8] 05/29/2021 Preop testing [Z01.818] 05/29/2021 06/28/2021 Aortic valve stenosis [I35.0] 05/29/2021 Tricuspid regurgitation [I07.1] 05/29/2021 Coronary artery disease involving [place] meredith*05/29/2021 History of cardioversion [Z92.89] 05/29/2021 Hyperlipidemia [E78.5] 05/29/2021 Atelectasis [J98.11] 06/19/2021 06/28/2021 Postoperative hypotension [I95.81] 06/19/2021 06/21/2021 Cardiac insufficiency following cardiac surgery*06/19/2021 06/26/2021 Postoperative pain [G89.18] 06/19/2021 Stress hyperglycemia [R73.9] 06/20/2021 06/26/2021 Hypervolemia [E87.70] 06/20/2021 06/26/2021 FELISA (acute kidney injury) (HCC) [N17.9] 06/22/2021 Encounter for support and coordination of trans*06/26/2021 Permanent atrial fibrillation (HCC) [I48.21] 06/07/2023 Iron deficiency anemia, unspecified [D50.9] 06/13/2022 Prescriptions ordered t (more content not included)... Normal [facility] CNOVon 03-16-2024 CNOV Office Visit (TALIB ) -------- BRITTA TORRES ([id number]) 1945 M Date Time Provider Department 03/16/24 9:00 AM PATRICIA ARCHER During your visit today, we recorded the following information about you: Pulse Blood pressure Weight 91/minute 132/78 76.6 kg Patricia Archer APRN.DIRECTOR TREASURER 03/16/2024 9:27 AM Signed [facility] [place] [facility] Department of Cardiovascular Medicine SECTION OF CLINICAL CARDIOLOGY OUTPATIENT VISIT DATE March 16, 2024 OUTPATIENT VISIT TYPE ESTABLISHED PRIMARY CARE PHYSICIAN: Austen Ontiveros MD [address] [facility] [place] [address] CHIEF COMPLAINT: Follow up HISTORY OF PRESENT ILLNESS: Mr. Torres is a 78 year old male patient of Dr. Goldberg and Dr. Bagley [facility] of permanent atrial fibrillation (rate control strategy, [id number]: 2%), known CAD (: s/p CABG x3, PECK to LAD, SVG to PDA, left radial artery to the obtuse marginal 1, TV repair with a ring, AVR with edward inspiris valve, left atrial appendage clip, cryo maze), preserved LV systolic heart function (echo: 2021: EF 56%, pulmonary hypertension RVSP 49mmHg, LA severely dilated), hypertension, hyperlipidemia, [place] [facility] anticoagulation, anemia who presents today for a cardiovascular medicine follow-up visit. Echo was completed 03/03/24 that revealed LVEF 52%, mild RV dysfunction, LA dilation, RA dilation, s/p TV repair mild TR 7/2, s/p prosthetic AVR #25 trace AR 10/6 BP 120/78 Hr while active up to 110. active walks 4 miles a day and bikes outside. Diet is good. No complaints at this time He denies chest pain, shortness of breath, orthopnea, cough, edema, palpitations, PND, lightheadedness or syncope. 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 ([facility]) Comment: s/p CABG x3, PECK to LAD, SVG to PDA, left radial artery to obtuse marginal No date: HTN (hypertension) No date: Hyperlipidemia No date: Nonexudative senile macular degeneration of retina No date: Pseudophakia Comment: os 06/2021: S/P AVR Comment: s/p AVR #25 inspiris valve 06/2021: S/P left atrial appendage ligation Comment: with bypass surgery 06/2021: S/P Maze operation for atrial fibrillation Comment: s/p maze with cryo with bypass surgery 06/2021: S/P tricuspid valve repair Comment: annuloplasty band PAST SURGICAL HISTORY 07/08/2006: AFIB ABLATION/PULM VEIN ISOLATION Comment: Yanique No date: APPENDECTOMY Comment: age 9 12/09/2013: ATRIAL FIBRILLATION/FLUTTER ABLATION 07/07/2021: AVR W/AORTIC ANNULUS ENLARGEMENT 11/02/13, 12/01/2014: CARDIOVERSION 10/06/2013: PAST SURGICAL HISTORY OF Comment: trigger finger release 07/08/2004: REMOVAL SKIN LESION 0.6-1.0 CM Comment: head No date: REMV CATARACT EXTRACAP,INSERT LENS; Left 07/08/2006: JEREMY (TRANSESOPHAGEAL ECHO) 07/08/1957: TONSILLECTOMY AND ADENOIDECTOMY SOCIAL HISTORY Social History Tobacco Use Smoking status: Never Smokeless tobacco: Never Substance Use Topics Alcohol use: Yes Comment: rare beer after mowing lawn in summer Drug use: No FAMILY HISTORY Problem Relation Age of Onset Cancer Father Stroke Mother Coronary Artery Disease Sister GI Sister Hypertension Sister Stroke Paternal Grandmother No Ocular Disease Other ALLERGIES: ALLERGIES Allergen Reactions Deconamine [Chlorph* Unknown Niaspan [Niacin] Unknown Pseudoephedrine Unknown Other Reaction(s): Urinary Retention Sulfamethoxazole-Tr* Unknown MEDICATIONS: aspirin, enteric coated (ADULT LOW DOSE ASPIRIN) 81 mg EC tablet Take 1 tablet by mouth every other day. ferrous sulfate (IRON ORAL) Take by mouth. tamsulosin HCl (FLOMAX ORAL) Take 0.4 mg by mouth once daily. CALCIUM CARBONATE/VITAMIN D3 (VITAMIN D-3 ORAL) Take 2,000 Units by mouth twice daily. montelukast 10 mg tablet Take 10 mg by mouth daily at bedtime. MULTIVIT ANDMINERALS/FERROUS FUM (MULTI VITAMIN ORAL) Take by mouth once daily. Golden Eagle-3 Fatty Acids-Vitamin E 1,000 mg cap Take 1 capsule by mouth twice daily. apixaban (ELIQUIS) 5 mg tab(s) Take 1 tablet by mouth two times a day. bisoprolol (ZEBETA) 10 mg tablet Take 2 tablets by mouth once daily. rosuvastatin (CRESTOR) 10 mg tablet Take 1 tablet by mouth once daily. prednisoLONE acetate (PRED FORTE) 1 % ophthalmic suspension USE DIRECTED BY PHYSICIAN, IN OPERATIVE EYE, BEGINNING ONE DAY AFTER SURGERY keTORolac (ACULAR) 0.5 % ophthalmic solution USE DIRECTED BY PHYSICIAN, IN OPERATIVE EYE, BEGINNING ONE DAY AFTER SURGERY CARDIOVASCULAR MEDICINE TESTING: Echo 03/04/2024 8:19 AM - Cchs, Sdynamics Oru In Impression CONCLUSIONS: - Exam indication: Routine surveillance of moderate or s (more content not included)... Normal [facility] 03-16-2024 CARMENN Telephone (INTMAL) -------- BRITTA TORRES ([id number]) 1945 M Date Time Provider Department 03/16/24 PATRICIA ARCHER During your visit today, we recorded the following information about you: Mouna Gomez 03/16/2024 1:52 PM Signed Britta is calling Patricia Archer APRN.CARMEN today to request lab orders to be faxed over to [facility]. Please advise. Fax number: [phone] Patient has been identified by name and birthdate. Duration of symptoms: N/A Person calling: self Call patient at: at home [phone] (home) [phone] (cell) Was an appointment scheduled: No Closing statement: Results or non-symptom based questions: Thank you for calling [facility], your call will be returned within the next business day. Thank you, Torri Mendoza, PRISCA 03/16/2024 1:58 PM Signed Labs faxed with fax confirmation Allergies As of Date: 03/16/2024 Noted Allergy Reaction DECONAMINE (CHLORPHENIRAMINE-PSEU*0 07/20/2013 16 - Unknown NIASPAN (NIACIN) 07/20/2013 16 - Unknown PSEUDOEPHEDRINE 12/26/2022 16 - Unknown Comments: Other Reaction(s): Urinary Retention SULFAMETHOXAZOLE-TRIMETH OPRIM 07/20/2013 16 - Unknown Date Reviewed: 03/16/2024 Reviewed by: Torri Hill RN - Fully Assessed Reason for Visit: Orders [681] Prescriptions as of 03/16/2024 - apixaban (ELIQUIS) 5 mg tab(s) Take 1 tablet by mouth two times a day. - bisoprolol (ZEBETA) 10 mg tablet Take 2 tablets by mouth once daily. - rosuvastatin (CRESTOR) 10 mg tablet Take 1 tablet by mouth once daily. - prednisoLONE acetate (PRED FORTE) 1 % ophthalmic suspension USE DIRECTED BY PHYSICIAN, IN OPERATIVE EYE, BEGINNING ONE DAY AFTER SURGERY - keTORolac (ACULAR) 0.5 % ophthalmic solution USE DIRECTED BY PHYSICIAN, IN OPERATIVE EYE, BEGINNING ONE DAY AFTER SURGERY - aspirin, enteric coated (ADULT LOW DOSE ASPIRIN) 81 mg EC tablet Take 1 tablet by mouth every other day. - ferrous sulfate (IRON ORAL) Take by mouth. - tamsulosin HCl (FLOMAX ORAL) Take 0.4 mg by mouth once daily. - CALCIUM CARBONATE/VITAMIN D3 (VITAMIN D-3 ORAL) Take 2,000 Units by mouth twice daily. - montelukast 10 mg tablet Take 10 mg by mouth daily at bedtime. - MULTIVIT ANDMINERALS/FERROUS FUM (MULTI VITAMIN ORAL) Take by mouth once daily. - Golden Eagle-3 Fatty Acids-Vitamin E 1,000 mg cap Take 1 capsule by mouth twice daily. Problem List As Of Date 03/16/2024 Noted Resolved Chronic a-fib (HCC) [I48.20] 05/18/2013 Pulmonary hypertension [I27.20] 05/18/2013 HTN (hypertension) [I10] 11/23/2013 SRIVASTAVA (dyspnea on exertion) [R06.09] 03/30/2021 Lower urinary tract symptoms due to benign pros*06/12/2020 Discharge planning issues [Z75.8] 05/29/2021 Preop testing [Z01.818] 05/29/2021 06/28/2021 Aortic valve stenosis [I35.0] 05/29/2021 Tricuspid regurgitation [I07.1] 05/29/2021 Coronary artery disease involving tonto apache meredith*05/29/2021 History of cardioversion [Z92.89] 05/29/2021 Hyperlipidemia [E78.5] 05/29/2021 Atelectasis [J98.11] 06/19/2021 06/28/2021 Postoperative hypotension [I95.81] 06/19/2021 06/21/2021 Cardiac insufficiency following cardiac surgery*06/19/2021 06/26/2021 Postoperative pain [G89.18] 06/19/2021 Stress hyperglycemia [R73.9] 06/20/2021 06/26/2021 Hypervolemia [E87.70] 06/20/2021 06/26/2021 FELISA (acute kidney injury) (HCC) [N17.9] 06/22/2021 Encounter for support and coordination of trans*06/26/2021 Permanent atrial fibrillation (HCC) [I48.21] 06/07/2023 Iron deficiency anemia, unspecified [D50.9] 06/13/2022 Encounter Status:Closed by TORRI HILL on 03/16/24 Normal [facility] ECHOon 03-03-2024 Echocardiography Echocardiography Rep ort: Transthoracic Echo [facility] Date of service: 03/03/2024 3:31:35 PM ROOM SUPERVISOR Ordering physician: EVER GOLDBERG V Indication: Routine surveillance of moderate or severe valvular regurgitation (>1yr) Technologist: Carol BUCHANAN Interpreting physician: Otilio Cueva MD PATIENT: Name: MR. 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 Secondary rhythm: RBBB. Height: 185.40 cm BSA: 2.05 m Weight: 82.00 kg BMI: 23.9 kg/m Heart rate 89 bpm Blood pressure 138/55 mmHg Color Doppler was utilized to interrogate the cardiac valves assessed and spectral Doppler was utilized to determine the flow velocities and pressure gradients reported in this exam. MEASUREMENTS: Value Indexed Normal Max aortic dimension 3.6 cm Ao < 3.8 Left atrial volume 87 ml (biplane A-L) 42 ml/m Deisy <= 34 LV ID (diastole) 4.2 cm (2D) 2.06 cm/m LV ID (systole) 2.8 cm (2D) 1.35 cm/m IVS, leaflet tips 1.4 cm (2D) Posterior wall thickness 1.4 cm (2D) Left ventricular mass 228 g (2D) 111 g/m LV stroke volume 53 ml (2D biplane) LV end diastolic volume 103 ml (2D biplane) 50.1 ml/m 34<=EDVi<75 LV end systolic volume 50 ml (2D biplane) 24.2 ml/m Ejection Fraction 52 % (2D biplane) EF > 52 FINDINGS: LEFT VENTRICLE The left ventricle is normal in size. There is mild concentric left ventricular hypertrophy. Left ventricular systolic function is mildly decreased. Left ventricular diastolic function was not evaluated due to AF. Mitral annular lateral E/e': 22.3. Mitral annular septal E/e': 26.8. Wall Motion: All scored segments are normal. RIGHT VENTRICLE The right ventricle is normal in size. Right ventricular systolic function is mildly decreased. RV systolic tissue Doppler velocity is 6.0 cm/s. Tricuspid annular displacement is 1.0 cm. Estimated right ventricular systolic pressure is 42 mmHg consistent with mild pulmonary hypertension. Estimated right atrial pressure is 15 mmHg based on IVC assessment. LEFT ATRIUM The left atrial cavity is moderately dilated. RIGHT ATRIUM The right atrial cavity is dilated. Inferior Vena Cava: The inferior vena cava appears dilated measuring 2.5 cm. The vessel decreases less than 50 percent with inspiration. MITRAL VALVE There is mild mitral annular calcification observed posterior. There is mild (1+ - 2+) holosystolic mitral valve regurgitation. There is mild thickening. The pressure half time is 47 msec. The peak mitral E/A ratio is 6.25. The average mitral E/e' ratio is 24.6. The mitral flow deceleration time is 163 msec. TRICUSPID VALVE Post tricuspid valve repair. Hanks MC3 Tricuspid Ring size #32. There is mild (1+) tricuspid valve regurgitation. The mean tricuspid gradient is 3 mmHg. The hepatic venous pattern showed blunted systolic flow. AORTIC VALVE Inspiris prosthetic valve size #25. There is trace aortic valve regurgitation. The peak gradient is 10 mmHg (peak velocity = 162.0 cm/s). The mean gradient is 6 mmHg. The LVOT mean velocity is 53.1 cm/s. The aortic VTI is 33.6 cm. The mean velocity in the aortic valve is 111.6 cm/s. The dimensionless valve index is 0.45. PULMONIC VALVE There is trace (trace - 1+) pulmonic valve regurgitation. There is no thickening. AORTA The visualized aorta is normal in size. Measurements - Sinus: 2.6 cm. Mid ascending aorta 3.4 cm. Distal ascending aorta 3.6 cm. Mid arch 3.6 cm. Distal descending diaphragmatic level 1.7 cm. INTERVENTRICULAR SEPTUM There is abnormal motion of the interventricular septum secondary to prior cardiac surgery. There is no flow through the interventricular septum as detected by Doppler. PERICARDIUM There is no pericardial effusion. CONCLUSIONS: - Exam indication: Routine surveillance of moderate or severe valvular regurgitation (>1yr) - The left ventricle is normal in size. There is mild concentric left ventricular hypertrophy. Left ventricular systolic function is mildly decreased. EF = 52 5% (2D biplane) - The right ventricle is normal in size. Right ventricular systolic function is mildly decreased. - The left atrial cavity is moderately dilated. - The right atrial cavity is dilated. - Post tricuspid valve repair. Hanks MC3 Tricuspid Ring (size #32). There is mild (1+) tricuspid valve regurgitation. The peak gradient is 7 mmHg and the mean gradient is 3 mmHg. Previous p/m gradients 5/2mmHg. - Inspiris prosthetic aortic valve (size #25). There is trace aortic valve regurgitation. The peak gradient is 10 mmHg, the mean gradient is 6 mmHg and the dimensionless valve index is 0.45. Previous p/m gradients 6/3mmHg. - Exam was compared with the prior echocardiographic exam (more content not included)... Normal [facility] CNPCami 01-29-2024 MALACHI Telephone (CARDAV) -------- BRITTA TORRES ([id number]) 1945 M Date Time Provider Department 01/29/24 EVER GOLDBERG During your visit today, we recorded the following information about you: Sanaz Hurtado, PRISCA 01/29/2024 11:06 AM Signed Pt has a Stress ECHO coming up on Saturday His friend has tested + for covid and he was with him two days ago On Saturday this week he was helping this friend cut trees they were rather distanced (he was on the ground and the friend was driving the tractor) plus they were outside He is completely asymptomatic feels fine, walking his usual 4 miles a day No fevers (97.6 F orally ) No chills, no SOB/CP, LH, headaches runny nose, sore throat or ear issues, no coughing, wheezing, no abd pains, body pains, no n/v/d or otherwise feeling bad in any way He has tested NEGATIVE for Covid himself today Pt planned to retest himself this weekend and if still negative pt is asking if he can proceed to the ECHO on Saturday Advised: YES Informed as long as he is not having sx of illness and not testing + for covid he may proceed He could always wear a mast to be precautious if he chooses but not required He verbalized an understanding Told him I'd inform Dr. Goldberg's nurses and if anybody has additional (or differing) input they'd reach out to him Otherwise - he will proceed to ECHO as scheduled barring any issues or illness Allergies As of Date: 01/29/2024 Noted Allergy Reaction DECONAMINE (CHLORPHENIRAMINE-PSEU*0 07/20/2013 16 - Unknown NIASPAN (NIACIN) 07/20/2013 16 - Unknown PSEUDOEPHEDRINE 12/26/2022 16 - Unknown Comments: Other Reaction(s): Urinary Retention SULFAMETHOXAZOLE-TRIMETH OPRIM 07/20/2013 16 - Unknown Date Reviewed: 11/27/2023 Reviewed by: Jes Bains, PRISCA - Fully Assessed Reason for Visit: covid exposure / questions [Other] Prescriptions as of 01/29/2024 - prednisoLONE acetate (PRED FORTE) 1 % ophthalmic suspension USE DIRECTED BY PHYSICIAN, IN OPERATIVE EYE, BEGINNING ONE DAY AFTER SURGERY - keTORolac (ACULAR) 0.5 % ophthalmic solution USE DIRECTED BY PHYSICIAN, IN OPERATIVE EYE, BEGINNING ONE DAY AFTER SURGERY - aspirin, enteric coated (ADULT LOW DOSE ASPIRIN) 81 mg EC tablet Take 1 tablet by mouth every other day. - apixaban (ELIQUIS) 5 mg tab(s) Take 1 tablet by mouth twice daily. - bisoprolol (ZEBETA) 10 mg tablet Take 2 tablets by mouth once daily. - rosuvastatin (CRESTOR) 10 mg tablet Take 1 tablet by mouth once daily. - ferrous sulfate (IRON ORAL) Take by mouth. - tamsulosin HCl (FLOMAX ORAL) Take 0.4 mg by mouth once daily. - CALCIUM CARBONATE/VITAMIN D3 (VITAMIN D-3 ORAL) Take 2,000 Units by mouth twice daily. - montelukast 10 mg tablet Take 10 mg by mouth daily at bedtime. - MULTIVIT ANDMINERALS/FERROUS FUM (MULTI VITAMIN ORAL) Take by mouth once daily. - Golden Eagle-3 Fatty Acids-Vitamin E 1,000 mg cap Take 1 capsule by mouth twice daily. Problem List As Of Date 01/29/2024 Noted Resolved Chronic a-fib (HCC) [I48.20] 05/18/2013 Pulmonary hypertension [I27.20] 05/18/2013 HTN (hypertension) [I10] 11/23/2013 SRIVASTAVA (dyspnea on exertion) [R06.09] 03/30/2021 Lower urinary tract symptoms due to benign pros*06/12/2020 Discharge planning issues [Z75.8] 05/29/2021 Preop testing [Z01.818] 05/29/2021 06/28/2021 Aortic valve stenosis [I35.0] 05/29/2021 Tricuspid regurgitation [I07.1] 05/29/2021 Coronary artery disease involving tonto apache meredith*05/29/2021 History of cardioversion [Z92.89] 05/29/2021 Hyperlipidemia [E78.5] 05/29/2021 Atelectasis [J98.11] 06/19/2021 06/28/2021 Postoperative hypotension [I95.81] 06/19/2021 06/21/2021 Cardiac insufficiency following cardiac surgery*06/19/2021 06/26/2021 Postoperative pain [G89.18] 06/19/2021 Stress hyperglycemia [R73.9] 06/20/2021 06/26/2021 Hypervolemia [E87.70] 06/20/2021 06/26/2021 FELISA (acute kidney injury) (HCC) [N17.9] 06/22/2021 Encounter for support and coordination of trans*06/26/2021 Permanent atrial fibrillation (HCC) [I48.21] 06/07/2023 Iron deficiency anemia, unspecified [D50.9] 06/13/2022 Encounter Status:Closed by AGNES STEPHENS on 01/29/24 Normal [facility] ANES POSTPROC EVALon 024 ANES POSTPROC EVAL HNO ID: [id number] Author: POLI PINA II, DO Service: Anesthesiology Author Type: Anesthesiologist Type: Anesthesia Postprocedure Evaluation Filed: 11/27/2023 15:12 Note Text: POST ANESTHESIA EVALUATION NOTE : 1945 Procedure Summary Date: 11/27/23 Room / Location: [address] Anesthesia Start: 3 Anesthesia Stop: 144 Procedures: PHACOEMULSIFICATION CATARACT IMPLANT INTRAOCULAR LENS W/O ENDOSCOPIC CYCLOPHOTOCOAGULATION (Right: Eye) OPHTHALMIC BIOMETRY BY PARTIAL COHERENCE INTERFEROMETRY W/INTRAOCULAR LENS POWER CALCULATION (Right: Eye) Diagnosis: Combined forms of 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 (Combined forms of 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 [H25.811]) Surgeons: Marisol Senior V, MD Responsible Provider: Poli Pina II, DO Anesthesia Type: MAC ASA Status: 3 Anesthesia Type: MAC Last Vitals Vitals Value Taken Time BP 149/72 11/27/23 1453 Temp 36.3 ?C (97.4 ?F) 11/27/23 1444 Pulse 75 11/27/23 1453 Resp 16 11/27/23 1453 SpO2 95 % 11/27/23 1453 Post Anesthesia Patient Status Patient Evaluation: PACU. PACU/ICU Patient Condition: stable. Neurological Status: aware and responsive. Pulmonary Status: breathing comfortably on room air Airway Control: returned to baseline unsupported. Cardiovascular Status: stable. Pain Management: clinically adequate Postoperative Hydration: acceptable. Intraoperative Events: no significant anesthesia events Post Operative Nausea/Vomiting Status: no significant post operative nausea or vomiting Recommendation: continue current plan of care. Anesthesia Observations No Documentation SIGNATURE: Poli Pina II, DO PATIENT NAME: Britta Torres DATE: November 27, 2023 TIME: 3:12 PM CSN: [id number] Normal [facility] ANES PRE-OPon 11-27-2023 ANES PRE-OP HNO ID: [id number] Author: POLI PINA II, DO Service: Anesthesiology Author Type: Anesthesiologist Type: Anesthesia Preprocedure Evaluation Filed: 11/27/2023 13:23 Note Text: ANESTHESIOLOGY DAY OF SURGERY NOTE : 1945 Procedure Information Date/Time: 11/27/23 1255 Procedures: PHACOEMULSIFICATION CATARACT IMPLANT INTRAOCULAR LENS W/O ENDOSCOPIC CYCLOPHOTOCOAGULATION (Right: Eye) OPHTHALMIC BIOMETRY BY PARTIAL COHERENCE INTERFEROMETRY W/INTRAOCULAR LENS POWER CALCULATION (Right: Eye) Location: [address] Surgeons: Marisol Senior V, MD Estimated body mass index is 23.85 kg/m? as calculated from the following: Height as of 11/15/23: 185.4 cm (6' 1 ). Weight as of 11/15/23: 82 kg (180 lb 12.4 oz). Most recent hematocrit and potassium results: Hematocrit 41.2 01/18/2022 Potassium 5.5 01/18/2022 Relevant Problems CARDIO (+) Aortic valve stenosis (+) Chronic a-fib (HCC) (+) 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 (HCC) (+) SRIVASTAVA (dyspnea on exertion) (+) HTN (hypertension) (+) Permanent atrial fibrillation (HCC) (+) Pulmonary hypertension (HCC) -RENAL (+) FELISA (acute kidney injury) (HCC) PULMONARY (+) SRIVASTAVA (dyspnea on exertion) I - PHYSICAL EVALUATION AIRWAY Patient intubated: No. Tracheostomy tube not present Mallampati: III. TM distance: >3 FB. Neck ROM: limited extension. Mouth opening: adequate. Short neck: no. Thick neck: no DENTAL Dentures, upper: complete. Dentures, lower: complete. Additional exam findings: yes. CARDIOVASCULAR Rhythm: regular Rate: normal PULMONARY Breath sounds clear to auscultation. II - ANESTHESIA PLAN ASA Score: 3 Anesthetic Plan: MAC The patient is not a current smoker. NPO Status: adequate Beta Beth Monitoring Plan Monitoring plan: standard ASA. Post Procedure Analgesic Plan Postoperative analgesic plan: parenteral or oral opioids. Informed Consent Anesthetic risks, benefits, alternatives, personnel and consent discussed: yes. Patient / Responsible Green Party agrees to proceed: yes Patient / Surrogate agrees to blood products: Yes Vitals Value Taken Time BP 163/79 11/27/23 1316 Pulse 76 11/27/23 1316 Resp 16 11/27/23 1316 Temp 36.4 ?C (97.6 ?F) 11/27/23 1316 SpO2 98 % 11/27/23 1316 No current facility-administered medications on file as of 11/27/2023. Outpatient Medications as of 11/27/2023 Medication Sig - aspirin, enteric coated (ADULT LOW DOSE ASPIRIN) 81 mg EC tablet Take 1 tablet by mouth every other day. - apixaban (ELIQUIS) 5 mg tab(s) Take 1 tablet by mouth twice daily. - bisoprolol (ZEBETA) 10 mg tablet Take 2 tablets by mouth once daily. - rosuvastatin (CRESTOR) 10 mg tablet Take 1 tablet by mouth once daily. - ferrous sulfate (IRON ORAL) Take by mouth. - tamsulosin HCl (FLOMAX ORAL) Take 0.4 mg by mouth once daily. - CALCIUM CARBONATE/VITAMIN D3 (VITAMIN D-3 ORAL) Take 2,000 Units by mouth twice daily. - montelukast 10 mg tablet Take 10 mg by mouth daily at bedtime. - MULTIVIT ANDMINERALS/FERROUS FUM (MULTI VITAMIN ORAL) Take by mouth once daily. - Golden Eagle-3 Fatty Acids-Vitamin E 1,000 mg cap Take 1 capsule by mouth twice daily. - prednisoLONE acetate (PRED FORTE) 1 % ophthalmic suspension USE DIRECTED BY PHYSICIAN, IN OPERATIVE EYE, BEGINNING ONE DAY AFTER SURGERY - keTORolac (ACULAR) 0.5 % ophthalmic solution USE DIRECTED BY PHYSICIAN, IN OPERATIVE EYE, BEGINNING ONE DAY AFTER SURGERY I have interviewed and examined the patient. I have reviewed the medical record and/or the pre-anesthesia evaluation, pertinent labs, and test results. This contains updated information obtained within 48 hours of Surgery/Procedure. SIGNATURE: Poli Pina II, DO PATIENT NAME: Britta Torres DATE: November 27, 2023 TIME: 1:21 PM CSN: [id number] Normal [facility] OPERATIVE NOon 05-22-2024 OPERATIVE NO HNO ID: [id number] Author: MARISOL SENIOR MD Service: Ophthalmology Author Type: Physician Type: Operative Report Filed: 11/27/2023 14:41 Note Text: OPERATIVE REPORT DATE: November 27, 2023 PRIMARY SURGEON: Marisol Senior MD BUSINESS MACHINE OPERATOR: None [Any nurse listed as assisting or otherwise participating in this patient's care in the operating room has solely performed the duties of a circulating nurse.] Procedure(s) (LRB): PHACOEMULSIFICATION CATARACT IMPLANT INTRAOCULAR LENS W/O ENDOSCOPIC CYCLOPHOTOCOAGULATION (Right) OPHTHALMIC BIOMETRY BY PARTIAL COHERENCE INTERFEROMETRY W/INTRAOCULAR LENS POWER CALCULATION (Right) - COMPLEX 17411 PREOPERATIVE DIAGNOSIS: Combined cataract, miotic pupil POSTOPERATIVE DIAGNOSIS: Combined cataract, miotic pupil, presbyopia OPERATIVE INDICATIONS: BAT 20/80 ANESTHESIA: Topical with monitored anesthesia care OPERATIVE PROCEDURE: The patient was admitted to the operating suite where an IV and BP, EKG, and O2 monitors were placed. The operative eye was pretreated with 2.5% tropicamide and 1% phenylephrine eye drops. The operative eye was confirmed and marked. The intended Intraocular lens model and power circled on the patient's source document was confirmed to match the intraocular lens model and power selected from the Intraocular lens consignment, in accordance with hospital intraocular lens verification policy. Nasal oxygen was administered. With the patient in the supine position, topical lidocaine 4% was placed in the eye. The patient was then prepped and draped in the usual sterile fashion for intraocular surgery. After a time-out confirming correct patient using two unique identifiers, correct eye, correct operation, presence of allergies, correct implant, and implant sterility date, an eyelid speculum was placed. Under the operating microscope a beveled clear corneal incision was created temporally with a Marathon blade then a 2.4 mm keratome. The patient was observed to have a miotic pupil measuring 4-mm or less, thus requiring intracameral phenylephrine and iris manipulation with a small chopper to afford better visualization of the anterior capsule. Preservative-free phenylephrine was introduced into the anterior chamber, then replaced with Viscoat taking care to stretch the pupil. The anterior capsule was opened centrally, and using the Utrata forceps a continuous curvilinear capsulorrhexis of approximately 5.5 mm round was created. Gentle hydrodissection was accomplished using preservative-free lidocaine on a 27-gauge canula. Using the Siva phacoemulsification unit with the Kelman curved tip, the anterior chamber was entered and the nucleus was removed while it was in the bag. The epinuclear ring was dissected into several segments, then removed using the phacoemulsification unit set to the desired aspiration flow rate and ultrasound parameters. Great care was taken not to violate the posterior capsule. The silicone-tipped I and A instrument was used to remove the cortex and buff off any remaining cataractous material from the posterior capsule. The capsular bag was then reformed with Discovisc and the following Intraocular lens implant Implant Name Type Inv. Item Serial No. Head Orthopedic Team Physician Lot No. LRB No. Used Action Model No. [id number] [employer] - [id number] Intraocular Lens [id number] [employer] [id number] [employer] Right 1 Implanted [id number] was inserted through the lips of the wound into the capsular bag. I have reviewed the images and report from the [facility] November 27, 2023 to determine the Intraocular lens Power Calculation for the IOL lens implant. I have interpreted and agree with the calculation of the IOL as listed above. Using the I and A instrument, the Discovisc was removed from the anterior chamber and capsular bag, and the implant was centered. Cefuroxime 1mg in 0.1 mL normal saline was introduced into the anterior chamber through the clear corneal incision using a 30 gauge cannula. The wound was checked and found to be watertight. At the end of the procedure, the cornea was clear, the anterior chamber was deep and clear, the pupil was round, the implant was centered within the capsular bag, and the posterior capsule was intact. The eyelid speculum was removed and timolol 0.5% and prednisolone acetate drops were administered. A shield was affixed over the eye and the patient was sent to the recovery room, leaving the operating room in excellent condition. ESTIMATED BLOOD LOSS: <1mL SPECIMEN: None FINDINGS: Age-related cataract COMPLICATIONS: None Incision/Procedure Start Time: 2:31 PM Incision Close/Procedure End Time: 2:40 PM - Comanage with Dr Stallings; relinquish care POD #1 Marisol SENIOR MD [facility] HISTORY PHYSICALon 4 HISTORY PHYSICAL HNO ID: [id number] Author: MONSE BARBA APRN.DIRECTOR TREASURER Service: ? Author Type: Nurse Practitioner Type: H&P Filed: 11/15/2023 12:57 Note Text: HISTORY AND PHYSICAL EXAMINATION SERVICE DATE: 11/15/2023 SERVICE TIME: 12:44 PM PRIMARY CARE PHYSICIAN: Austen Ontiveros MD, MD REASON FOR VISIT: Britta Torres is a 78 year old male who is scheduled for Right - PHACOEMULSIFICATION CATARACT IMPLANT INTRAOCULAR LENS W/O ENDOSCOPIC CYCLOPHOTOCOAGULATION Right - OPHTHALMIC BIOMETRY BY PARTIAL COHERENCE INTERFEROMETRY W/INTRAOCULAR LENS POWER CALCULATION at the request of Dr. Marisol Senior V for consultation. My final recommendation will be communicated back to the requesting physician by way of shared medical record or letter. Assessment Patient has the following medical conditions which may affect magali-operative course: History of cardioversion Continues to be in rate controlled A-fib Permanent atrial fibrillation (HCC) History of A-fib, rate controlled On eliquis History of Cardioversion and Ablation Follows with Dr. 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 Goldberg Aortic valve stenosis History: Echo with severe and trace AR. Assessment: 06/19/2021: AVR (#25 Inspiris) Plan: Daily ASA Follows with Dr. Goldberg HTN (hypertension) Stable on medication Today 142/66 To take medication morning of surgery Iron deficiency anemia, unspecified Stable on iron supplement Hemoglobin (g/dL) Date Value 01/18/2022 12.9 07/05/2021 10.1 Hematocrit (%) Date Value 01/18/2022 41.2 07/05/2021 32.2 WBC (k/uL) Date Value 01/18/2022 4.66 07/05/2021 7.13 Pulmonary hypertension Stable. Follows cardiology, Dr. Goldberg, Compliant on medications. Appears euvolemic, denies new or worsening cardiac symptoms. Ejection Fraction - Result: 56 % Date: 01/18/2022 Time: 07:57:34 Grimm Activity Status Index: METS: Walk indoors, such as around the house (1.75 METs) Do light work around the house, such as dusting or washing dishes (2.70 METs) Take care of self; that is eating, dressing, bathing, using the toilet (2.75 METs) Walk a block or two on level ground (2.75 METs) Do moderate work around the house, such as vacuuming, sweeping floors, or carrying in groceries (3.50 METs) Do yardwork, such as raking leaves, weeding, or pushing a power mower (4.50 METs) Climb a flight of stairs or walk up a hill (5.50 METs) Participate in moderate recreational activites, such as golf, bowling, dancing, doubles tennis, or throwing a baseball or football (6.00 METs) Participate in strenuous sport, such as swimming, singles tennis, football, basketball, or skiing (7.50 METs) DASI Score: 36.95 Patient confirms chest pain or undue shortness of breath with the above physical activity. Patient is totally dependent. Clinical Frailty Scale: 3. Well, with treated comorbid disease STOP-Bang Score: Has or is being treated for high blood pressure Patient over 50 years old Male patient Denies snoring loudly Denies feeling tired, fatigued, or sleepy during the daytime Has not been observed to stop breathing or choking/gasping during sleep BMI less than or equal to 35 kg/m2 Does not have a large neck STOP-Bang Score: 3 [id number] Score: Age: >=75 Sex: male CHF history: Yes Hypertension history: Yes Stroke/TIA/thromboemboli sm history: No Vascular disease history: Yes Diabetes history: No [id number] Score: 5 ARISCAT Score: Age: 51-80 Preoperative SpO2: >=96% Respiratory infection in the last month: No Preoperative anemia: Yes Surgical incision: peripheral Duration of surgery: <2 hrs Emergency procedure: No ARISCAT Score: 14 ANESTHESIA FINDINGS: Intubation History: No history of difficult intubation. No abnormal airway history Significant Anesthesia Considerations: none Airway History: No history of difficult airway No abnormal airway history I - PHYSICAL EVALUATION AIRWAY Patient intubated: No. Tracheostomy tube not present Mallampati: II. TM distance: >3 FB. Neck ROM: full ROM without neurological symptoms. Mouth opening: adequate. Short neck: no. Thick neck: no Avina present: no Lip Bite Test: II Microretrognathia/Micron agthia/Recessed Chin: No DENTAL Dental findings: teeth intact. Dentures, upper: complete. Dentures, lower: complete. II - ANESTHESIA PLAN Anesthetic plan additional comments: *PACC/TCI - anesthesia choice. Beta Beth Monitoring Plan Post Procedure Analgesic Plan Prepared for surgery: This patient is optimally prepared for surgery. CONSULTS: Patient does not require consults for optimization at this time. The Following Tests/Procedures Have Been Initiated: Labs not indicated per PACC protocol, EKG not indic (more content not included)... Normal [facility] IOL BIOMETRY W/ IOL CALC OD (RIGHT EYE)on 11-15-2023 [facility] Radiology Study observation (narrative) [facility] CNPCami 09-05-2023 CNPN Telephone (BERNARDOAV) -------- BRITTA TORRES ([id number]) 1945 M Date Time Provider Department 09/05/23 EVER GOLDBERG During your visit today, we recorded the following information about you: Brandon White LPN 09/05/2023 8:44 AM Signed Received lab results from [facility]. Already scanned into chart but will give to in office to review. Allergies As of Date: 09/05/2023 Noted Allergy Reaction DECONAMINE (CHLORPHENIRAMINE-PSEU*0 07/20/2013 16 - Unknown NIASPAN (NIACIN) 07/20/2013 16 - Unknown SULFAMETHOXAZOLE-TRIMETH OPRIM 07/20/2013 16 - Unknown Date Reviewed: 09/03/2023 Reviewed by: Marisol Seinor V, MD - Fully Assessed Reason for Visit: Results [95] Prescriptions as of 09/05/2023 - aspirin, enteric coated (ADULT LOW DOSE ASPIRIN) 81 mg EC tablet Take 1 tablet by mouth every other day. - apixaban (ELIQUIS) 5 mg tab(s) Take 1 tablet by mouth twice daily. - bisoprolol (ZEBETA) 10 mg tablet Take 2 tablets by mouth once daily. - rosuvastatin (CRESTOR) 10 mg tablet Take 1 tablet by mouth once daily. - ferrous sulfate (IRON ORAL) Take by mouth. - acetaminophen (TYLENOL) 325 mg tablet Take 1-2 tablets by mouth every 4 hours as needed for mild to moderate pain - tamsulosin HCl (FLOMAX ORAL) Take 0.4 mg by mouth once daily. - CALCIUM CARBONATE/VITAMIN D3 (VITAMIN D-3 ORAL) Take 2,000 Units by mouth twice daily. - montelukast 10 mg tablet Take 10 mg by mouth daily at bedtime. - MULTIVIT ANDMINERALS/FERROUS FUM (MULTI VITAMIN ORAL) Take by mouth once daily. - Golden Eagle-3 Fatty Acids-Vitamin E 1,000 mg cap Take 1 capsule by mouth twice daily. Problem List As Of Date 09/05/2023 Noted Resolved Chronic a-fib (HCC) [I48.20] 05/18/2013 Pulmonary hypertension [I27.20] 05/18/2013 HTN (hypertension) [I10] 11/23/2013 SRIVASTAVA (dyspnea on exertion) [R06.09] 03/30/2021 Lower urinary tract symptoms due to benign pros*06/12/2020 Discharge planning issues [Z02.9] 05/29/2021 Preop testing [Z01.818] 05/29/2021 06/28/2021 Aortic valve stenosis [I35.0] 05/29/2021 Tricuspid regurgitation [I07.1] 05/29/2021 Coronary artery disease involving tonto apache meredith*05/29/2021 History of cardioversion [Z92.89] 05/29/2021 Hyperlipidemia [E78.5] 05/29/2021 Atelectasis [J98.11] 06/19/2021 06/28/2021 Postoperative hypotension [I95.81] 06/19/2021 06/21/2021 Cardiac insufficiency following cardiac surgery*06/19/2021 06/26/2021 Postoperative pain [G89.18] 06/19/2021 Stress hyperglycemia [R73.9] 06/20/2021 06/26/2021 Hypervolemia [E87.70] 06/20/2021 06/26/2021 FELISA (acute kidney injury) (HCC) [N17.9] 06/22/2021 Encounter for support and coordination of trans*06/26/2021 Permanent atrial fibrillation (HCC) [I48.21] 06/07/2023 Encounter Status:Closed by BRANDON HWITE on 09/05/23 Normal [facility] NT-PROBNP SERPL-MCNCon 0 08-09-2023 Interpretation and review of laboratory results Abnormal [facility] Natriuretic peptide B (Bld) [Mass/Vol] 1619 pg/mL High NINF - 450 pg/mL [facility] Specimen Type: BLOOD SPECIMEN Ordering Facility: [facility] Address: [facility] [place] [address] Original Ordering Provider: EVER SPRAGUE [facility] CNOVon 08-09-2023 CNOV Office Visit (CARDAV ) -------- BRITTA TORRES ([id number]) 1945 M Date Time Provider Department 08/09/23 9:20 AM EVER GOLDBERG During your visit today, we recorded the following information about you: Pulse Respiration Blood pressure Weight 62/minute 18/minute 106/64 84.4 kg Height 1.854 m Ever Goldberg V, MD 08/09/2023 10:03 AM Signed Referring Physician: No referring provider defined for this encounter. Primary Care Physician: Austen Ontiveros MD, MD Britta Torrse is a 78 year old male that [...] V43.3, ICD10: Z95.2 (primary diagnosis) Echo in [facility] Clinically no stenosis - ECHO 2. 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 Golden Eagle-3 Fatty Acids-Vitamin E 1,000 mg cap Take [...] OPRIM 07/20/2013 16 - Unknown Date Reviewed: (more content not included)... Normal [facility] LIPID PANEL, NONFASTINGon Cholesterol [Mass/Vol] 152 mg/dL Normal <200 [facility] Comment on above: Order Comment: Arnol yee Type: BLOOD SPECIMEN Ordering Facility: [facility] Address: [address] [place] [address] Result Comment: <200 mg/dL, Desirable 200-239 mg/dL, Borderline high >239 mg/dL, High Performed By: #### L IPNF, 21271-4 #### [facility] CLIA [id number] [address] [place], [place] [id number] [place] [address] [place] HDL CHOLESTEROL, NF 57 mg/dL Normal >39 [facility] Comment on above: Order Comment: Arnol yee Type: BLOOD SPECIMEN Ordering Facility: [facility] Address: [address] [place] [address] Result Comment: 40-5 9 mg/dL, Acceptable >59 mg/dL, High: Negative risk factor for coronary heart disease <40 mg/dL, Low: Positive risk factor for coronary heart disease Performed By: #### L IPNF, 37796-0 #### [facility] CLIA [id number] [place] LDL CHOLESTEROL, NF 82 mg/dL Normal <100 [facility] Comment on above: Order Comment: Arnol yee Type: BLOOD SPECIMEN Ordering Facility: [facility] Address: [address] [place] [address] Result Comment: <100 mg/dL, Optimal 100-129 mg/dL, Near optimal/above optimal 130-159 mg/dL, Borderline high 160-189 mg/dL, High >189 mg/dL, Very high Secondary prevention optimal LDL Cholesterol levels are recommended to be < 70 mg/dL Performed By: #### L IPNF, 98582-0 #### [facility] CLIA [id number] [address] [place] [address] [facility] [place] LDL/HDL RATIO, NF 1.44 mg/dL Normal <2.54 [facility] Comment on above: Order Comment: Arnol yee Type: BLOOD SPECIMEN Ordering Facility: [facility] Address: [address] [place] [address] Result Comment: Ammon geiger: 1. National Cholesterol Education Program ATP III Guideline At-A-Glance Quick Desk Reference: National Heart, Lung, and Blood [place]. National Institutes of Health. 2001: NIH Publication No. 01-3305. 2. An International Atherosclerosis Society position paper: global recommendations for the management of dyslipidemia: executive summary, Atherosclerosis. 2014: 232(2):410-413. Performed By: #### L IPNF, 46981-4 #### [facility] CLIA [id number] [facility]. [address] OF [facility] NON HDL CHOL, NF 95 mg/dL Normal <130 [facility] Comment on above: Order Comment: Arnol yee Type: BLOOD SPECIMEN Ordering Facility: [facility] Address: [address] [place] [address] Result Comment: <130 mg/dL, Optimal 130-159 mg/dL, Near optimal/above optimal 160-189 mg/dL, Borderline high 190-219 mg/dL, High >219 mg/dL, Very high Secondary prevention optimal non HDL Cholesterol levels are recommended to be <100 mg/dL Performed By: #### L IPNF, 09235-3 #### [facility] CLIA [id number] [address] [facility]. [address] [place] T CHOL/HDL RATIO NF 2.67 mg/dL Normal <5.10 [facility] Comment on above: Order Comment: Arnol yee Type: BLOOD SPECIMEN Ordering Facility: [facility] Address: [address] [place] [address] Performed By: #### L IPNF, 97135-8 #### [facility] CLIA [id number] [address] [facility]. [address] [place] TRIGLYCERIDES, NF 66 mg/dL Normal <150 [facility] Comment on above: Order Comment: Arnol yee Type: BLOOD SPECIMEN Ordering Facility: [facility] Address: [address] [place] [address] Result Comment: <150 mg/dL, Normal 150-199 mg/dL, Borderline high 200-499 mg/dL, High >499 mg/dL, Very high Performed By: #### L IPNF, 65201-2 #### [facility] CLIA [id number] [address] [facility] [place] [address] [place] VLDL CHOLESTEROL, NF 13 mg/dL Normal <30 [facility] Comment on above: Order Comment: Arnol yee Type: BLOOD SPECIMEN Ordering Facility: [facility] Address: [address] [place] [address] Performed By: #### L IPNF, 20512-4 #### [facility] CLIA [id number] [address] [facility] [place] [address] [place] Cholesterol [Mass/Vol] 152 mg/dL <200 mg/dL [facility] HDL Cholesterol, Nonfasting 57 mg/dL >39 mg/dL [facility] LDL Cholesterol, Nonfasting 82 mg/dL <100 mg/dL [facility] LDL/HDL Ratio, Nonfasting 1.44 mg/dL <2.54 mg/dL [facility] Non HDL Cholesterol, Nonfasting 95 mg/dL <130 mg/dL [facility] Total Chol/HDL Ratio, Nonfasting 2.67 mg/dL <5.10 mg/dL [facility] Triglycerides, Nonfasting 66 mg/dL <150 mg/dL [facility] VLDL Cholesterol, Nonfasting 13 mg/dL <30 mg/dL [facility] NT PRO BNPon 08-09-2023 Natriuretic peptide.B prohormone N-Terminal [Mass/Vol] 1619 pg/mL High <450 pg/mL [facility] NT-proBNP SerPl-mCncon 08-09 Natriuretic peptide.B prohormone N-Terminal [Mass/Vol] 1619 pg/mL High <450 [facility] Comment on above: Order Comment: Arnol yee Type: BLOOD SPECIMEN Ordering Facility[facility] Address: [address] [facility] [place] [place] [address] Performed By: #### L IPNF, 93436-0 #### [facility] CLIA [id number] [address] [facility] [place] [address] [place] CNOVon 06-07-2023 CNOV Office Visit (CAEPAV ) -------- BRITTA TORRES ([id number]) 1945 M Date Time Provider Department 06/07/23 9:00 AM AMY SUBRAMANIAN During your visit today, we recorded the following information about you: Pulse Blood pressure Weight Height 86/minute 150/80 84.4 kg 1.867 m Amy Subramanian APRN.DIRECTOR TREASURER 06/07/2023 9:28 AM Signed [facility] [place] [facility] Department of Cardiovascular Medicine SECTION OF CARDIAC PACING and ELECTROPHYSIOLOGY OUTPATIENT VISIT DATE June 07, 2023 OUTPATIENT VISIT TYPE ESTABLISHED PRIMARY CARE PHYSICIAN: Austen Ontiveros MD [address] [place] [address] CHIEF COMPLAINT: follow up permanent atrial fibrillation HISTORY OF PRESENT ILLNESS: Mr. Torres is a 78 year old male who presents today for followed by Dr. Goldberg, Dr. Bagley for permanent atrial fibrillation (rate control strategy, [id number]: 2%), known CAD (: s/p CABG x3, PECK to LAD, SVG to PDA, left radial artery to the obtuse marginal 1, TV repair with a ring, AVR with austen inspiris valve, left atrial appendage clip, cryo maze), preserved LV systolic heart function (echo: 2021: EF 56%, pulmonary hypertension RVSP 49mmHg, LA severely dilated), Other PMH of hypertension, hyperlipidemia, rn long term care anticoagulation, anemia. 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 Golden Eagle-3 Fatty Acids-Vitamin E 1,000 mg cap Take [...] or vania (more content not included)... Normal [facility] [id number] 06-07-2023 ECG01 Ventricular Rate : 8 6 BPM QRS Duration : 144 ms Q-T Interval : 382 ms QTC Calculation(Bazett) : 457 ms Calculated R Belt : 58 degrees Calculated T Belt : 35 degrees ATRIAL FIBRILLATION COMPLETE RIGHT BUNDLE BRANCH BLOCK ABNORMAL ECG Confirmed by JULIO AVILES MD ([id number]) on 06/11/2023 7:02:50 PM NAME : BRITTA TORRES PID : [id number] : 1945 Gender : Male Race : [...] : , Acquired by : , Normal [facility] FERRITINon 10-09-2022 Ferritin [Mass/Vol] 83.0 ng/mL Normal 26.0-388.0 [facility] Comment on above: Performed By: #### F ETIBC, FERR #### [facility] [address] [place] [address] Dr. Tobias Murrieta IRON AND TIBCon 10-09-2022 % SATURATION 19.0 % Normal [facility] Comment on above: Performed By: #### F ETIBC, FERR #### [facility] [address] [place] [address] Dr. Tobias Murrieta Iron [Mass/Vol] 64.0 ug/dL Critically low 65.0-175.0 [facility] Comment on above: Performed By: #### F ETIBC, FERR #### [facility] [address] [place] [address] Dr. Tobias Murrieta TIBC DIRECT 337.0 ug/dL Normal 250.0-450.0 [facility] Comment on above: Performed By: #### F ETIBC, FERR #### [facility] [address] [place] [address] Dr. Tobias Murrieta HEMOGLOBIN AND HEMATOCRITon 07-10-2022 Hematocrit (Bld) [Volume fraction] 36.8 % Critically low 42.0-54.[address] [facility] Comment on above: Performed By: #### H GBHCT #### [facility] [address] [place] [address] Dr. Tobias Murrieta Hemoglobin (Bld) [Mass/Vol] 12.0 g/dL Critically low 14.0-18.[address] [facility] Comment on above: Performed By: #### H GBHCT #### [facility] [address] [place] [address] Dr. Tobias Murrieta IRON AND TIBCon 07-10-2022 % SATURATION 25.5 % Normal [facility] Comment on above: Performed By: #### T OTIBC, FERR #### [facility] [address] [place] [address] Dr. Tobias Murrieta Iron [Mass/Vol] 81.0 ug/dL Normal 65.0-175.0 [facility] Comment on above: Performed By: #### T OTIBC, FERR #### [facility] [address] [place] [address] Dr. Tobias Murrieta TIBC DIRECT 318.0 ug/dL Normal 250.0-450.0 [facility] Comment on above: Performed By: #### T OTIBC, FERR #### [facility] [address] [address] [address] Tobias Murrieta Outside Colonoscopyon 2021 Outside Colonoscopy [id number]#[id number]: 127 Normal [facility] Reminderson 06-14-2022 Reminders - From: Ree Knutson LPN To: GSN - Clinical; Sent: 06/14/2022 09:22:28 EST Show up: 05/14/2032 07:00:00 EST Subject: colonoscopy recall Due Date/Time: 06/13/2032 07:00:00 EST Reminder/Recall Patient is due for screening colonoscopy 06/13/2032. Normal [facility] Lab Reportson 06-11-2022 Lab Reports [id number]#1.00CD: 127 Normal [facility] Covid-19 PCR (CVDTB)on SARS-CoV-2 (COVID-19) RNA HAROON+probe Ql (Unsp spec) Not detected Normal NOT DETECTED [facility] Comment on above: Result Comment: This test is not yet approved or cleared by the [place] FDA. When there are no FDA-approved or cleared tests available, and other criteria are met, FDA can make tests available under an emergency access mechanism called an Emergency Use Authorization (EUA). The EUA for this test is supported by the [employer] Worker of Health and Human Service's (HHS's) declaration [...] consistent with SARS-CoV-2. Performed By: #### C VDTBH #### [facility] [address] [address] [address] Tobias Murrieta Consultation Noteon 05-24-20 Consultation Note [id number] :127 Normal [facility] Formson 05-24-2022 Forms [id number]: 127 Normal [facility] Consent for Procedure/Surger yon 05-23-2022 Consent for Procedure/Surgery [id number]: 127 Normal [facility] Ambulatory Visit Summaryon 07-22-2021 Ambulatory Visit [...] Tricuspid stenosis, non-rheumatic Vitamin D deficiency Normal [facility] Physician Referralon 022 Physician Referral [id number]: 127 Normal [facility] CBC AUTO DIFFon 04-25-2022 BASO # 0.0 103/ul Normal 0.0-0.[address] [facility] Comment on above: Performed By: #### C BC #### [facility] [address] [place] [address] Dr. Tobias Murrieta Basophils/100 WBC (Bld) 0.3 % Normal 0.2-2.[address] [facility] Comment on above: Performed By: #### C BC #### [facility] [address] [place] [address] Dr. Tobias Murrieta EO # 0.2 103/ul Normal 0.0-0.[address] [facility] Comment on above: Performed By: #### C BC #### [facility] [address] [place] [address] Dr. Tobias Murrieta Eosinophils/100 WBC (Bld) 3.0 % Normal 0.9-7.[address] [facility] Comment on above: Performed By: #### C BC #### [facility] [address] [place] [address] Dr. Tobias Murrieta Erythrocyte distribution width (RBC) [Ratio] 13.2 % Normal 11.0-15.[address] [facility] Comment on above: Performed By: #### C BC #### [facility] [address] [place] [address] Dr. Tobias Murrieta Hematocrit (Bld) [Volume fraction] 40.2 % Critically low 42.0-54.[address] [facility] Comment on above: Performed By: #### C BC #### [facility] [address] [place] [address] Dr. Tobias Murrieta Hemoglobin (Bld) [Mass/Vol] 12.8 g/dL Critically low 14.0-18.[address] [facility] Comment on above: Performed By: #### C BC #### [facility] [address] [place] [address] Dr. Tobias Murrieta IG # 0.01 10e3/ul Normal 0.00-0.[address] [facility] Comment on above: Performed By: #### C BC #### [facility] [address] [place] [address] Dr. Tobias Murrieta IG % 0.2 % Normal 0.0-0.[address] [facility] Comment on above: Performed By: #### C BC #### [facility] [address] [place] [address] Dr. Tobias Murrieta LYMPH # 2.0 103/ul Normal 1.2-3.[address] [facility] Comment on above: Performed By: #### C BC #### [facility] [address] [place] [address] Dr. Tobias Murrieta Lymphocytes/100 WBC (Bld) 34.1 % Normal 20.5-60.[address] [facility] Comment on above: Performed By: #### C BC #### [facility] [address] [place] [address] Dr. Tobias Murrieta MANUAL DIFF REQ NO Normal [facility] Comment on above: Performed By: #### C BC #### [facility] [address] [place] [address] Dr. Tobias Murrieta MCH (RBC) [Entitic mass] 29.3 pg Normal 25.9-34.[address] [facility] Comment on above: Performed By: #### C BC #### [facility] [address] [place] [address] Dr. Tobias Murrieta MCHC (RBC) [Mass/Vol] 31.8 g/dL Normal 29.9-35.[address] [facility] Comment on above: Performed By: #### C BC #### [facility] [address] [place] [address] Dr. Tobias Murrieta MCV (RBC) [Entitic vol] 92.0 fL Normal 80.0-94.[address] [facility] Comment on above: Performed By: #### C BC #### [facility] [address] [place] [address] Dr. Tobias Murrieta MONO # 0.8 103/ul Normal 0.3-0.[address] [facility] Comment on above: Performed By: #### C BC #### [facility] [address] [place] [address] Dr. Tobias Murrieta Monocytes/100 WBC (Bld) 13.9 % Critically high 1.7-12.[address] [facility] Comment on above: Performed By: #### C BC #### [facility] [address] [place] [address] Dr. Tobias Murrieta NEUT # 2.9 103/ul Normal 1.4-6.[address] [facility] Comment on above: Performed By: #### C BC #### [facility] [address] [address] [address] Tobias Murrieta Neutrophils/100 WBC (Bld) 48.5 % Normal 43.0-75.[address] [facility] Comment on above: Performed By: #### C BC #### [facility] [address] [place] [address] Dr. Tobias Murrieta Platelet mean volume (Bld) [Entitic vol] 9.8 fL Normal 9.5-13.[address] [facility] Comment on above: Performed By: #### C BC #### [facility] [address] [place] [address] Dr. Tobias Murrieta PLT 135 103/ul Critically low 150-450 [facility] Comment on above: Performed By: #### C BC #### [facility] [address] [place] [address] Dr. Tobias Murrieta RBC 4.37 106/ul Critically low 4.70-6.10 [facility] Comment on above: Performed By: #### C BC #### [facility] [address] [place] [address] Dr. Tobias Murrieta WBC 5.9 103/ul Normal 4.0-11.[address] [facility] Comment on above: Performed By: #### C BC #### [facility] [address] [place] [address] Dr. Tobias Murrieta FERRITINon 04-25-2022 Ferritin [Mass/Vol] 72.0 ng/mL Normal 26.0-388.0 [facility] Comment on above: Performed By: #### T OTIBC, FERR #### [facility] [address] [place] [address] Dr. Tobias Murrieta IRONon 04-25-2022 Iron [Mass/Vol] 52.0 ug/dL Critically low 65.0-175.0 [facility] Comment on above: Performed By: #### I PEYTON #### [facility] [address] [place] [address] Dr. Tobias Murrieta TIBC ONLY- NO FEon TIBC DIRECT 335.0 ug/dL Normal 250.0-450.0 [facility] Comment on above: Performed By: #### T OTIBC, FERR #### [facility] [address] [place] [address] Dr. Tobias Murrieta CBC AUTO DIFFon 01-24-2022 BASO # 0.0 103/ul Normal 0.0-0.[address] [facility] Comment on above: Performed By: #### D ATCBC #### [facility] [address] [place] [address] Dr. Tobias Murrieta Basophils/100 WBC (Bld) 0.4 % Normal 0.2-2.[address] [facility] Comment on above: Performed By: #### D ATCBC #### [facility] [address] [place] [address] Dr. Tobias Murrieta EO # 0.2 103/ul Normal 0.0-0.[address] [facility] Comment on above: Performed By: #### D ATCBC #### [facility] [address] [place] [address] Dr. Tobias Murrieta Eosinophils/100 WBC (Bld) 4.1 % Normal 0.9-7.[address] [facility] Comment on above: Performed By: #### D ATCBC #### [facility] [address] [place] [address] Dr. Tobias Murrieta Erythrocyte distribution width (RBC) [Ratio] 13.9 % Normal 11.0-15.[address] [facility] Comment on above: Performed By: #### D ATCBC #### [facility] [address] [place] [address] Dr. Tobias Murrieta Hematocrit (Bld) [Volume fraction] 38.0 % Critically low 42.0-54.[address] [facility] Comment on above: Performed By: #### D ATCBC #### [facility] [address] [address] [address] Tobias Murrieta Hemoglobin (Bld) [Mass/Vol] 12.5 g/dL Critically low 14.0-18.[address] [facility] Comment on above: Performed By: #### D ATCBC #### [facility] [address] [address] [address] Tobias Murrieta IG # 0.00 10e3/ul Normal 0.00-0.[address] [facility] Comment on above: Performed By: #### D ATCBC #### [facility] [address] [address] [address] Tobias Murrieta IG % 0.0 % Normal 0.0-0.[address] [facility] Comment on above: Performed By: #### D ATCBC #### [facility] [address] [place] [address] Dr. Tobias Murrieta LYMPH # 2.2 103/ul Normal 1.2-3.[address] [facility] Comment on above: Performed By: #### D ATCBC #### [facility] [address] [place] [address] Dr. Tobias Murrieta Lymphocytes/100 WBC (Bld) 46.1 % Normal 20.5-60.[address] [facility] Comment on above: Performed By: #### D ATCBC #### [facility] [address] [place] [address] Dr. Tobias Murrieta MCH (RBC) [Entitic mass] 29.8 pg Normal 25.9-34.[address] [facility] Comment on above: Performed By: #### D ATCBC #### [facility] [address] [place] [address] Dr. Tobias Murrieta MCHC (RBC) [Mass/Vol] 32.9 g/dL Normal 29.9-35.2 [facility] Comment on above: Performed By: #### D ATCBC #### [facility] [address] [place] [address] Dr. Tobias Murrieta MCV (RBC) [Entitic vol] 90.7 fL Normal 80.0-94.0 [facility] Comment on above: Performed By: #### D ATCBC #### [facility] [address] [address] [address] Tobias Murrieta MONO # 0.6 103/ul Normal 0.3-0.8 [facility] Comment on above: Performed By: #### D ATCBC #### [facility] [address] [address] [address] Tobias Murrieta Monocytes/100 WBC (Bld) 12.1 % Critically high 1.7-12.[address] [facility] Comment on above: Performed By: #### D ATCBC #### [facility] [address] [address] [address] Tobias Murrieta NEUT # 1.8 103/ul Normal 1.4-6.[address] [facility] Comment on above: Performed By: #### D ATCBC #### [facility] [address] [address] [address] Tobias Murrieta Neutrophils/100 WBC (Bld) 37.3 % Critically low 43.0-75.[address] [facility] Comment on above: Performed By: #### D ATCBC #### [facility] [address] [address] [address] Tobias Murrieta Platelet mean volume (Bld) [Entitic vol] 9.6 fL Normal 9.5-13.[address] [facility] Comment on above: Performed By: #### D ATCBC #### [facility] [address] [address] [address] Tobias Murrieta PLT 131 103/ul Critically low 150-450 [facility] Comment on above: Performed By: #### D ATCBC #### [facility] [address] [address] [address] Tobias Murrieta RBC 4.19 106/ul Critically low 4.70-6.10 [facility] Comment on above: Performed By: #### D ATCBC #### [facility] [address] [address] [address] Tobias Murrieta WBC 4.9 103/ul Normal 4.0-11.[address] [facility] Comment on above: Performed By: #### D ATCBC #### [facility] [address] [address] [address] Tobias Murrieta BEN- BMP WITH LIPIDon 2021 Anion gap [Moles/Vol] 11.2 mmol/L Normal [facility] Comment on above: Performed By: #### T OTIBC, FERR #### [facility] [address] [address] [address] Tobias Murrieta Calcium [Mass/Vol] 9.2 mg/dL Normal 8.5-10.1 [facility] Comment on above: Performed By: #### T OTIBC, FERR #### [facility] [address] [address] [address] Tobias Murrieta Chloride [Moles/Vol] 107 mmol/L Normal 98-[address] [facility] Comment on above: Performed By: #### T OTIBC, FERR #### [facility] [address] [place] [address] Dr. Tobias Murrieta Cholesterol [Mass/Vol] 154 mg/dL Normal <=[address] [facility] Comment on above: Performed By: #### T OTIBC, FERR #### [facility] [address] [place] [address] Dr. Tobias Murrieta Cholesterol in HDL [Mass/Vol] 55 mg/dL Normal 40-[address] [facility] Comment on above: Performed By: #### T OTIBC, FERR #### [facility] [address] [place] [address] Dr. Tobias Murrieta Cholesterol in LDL [Mass/Vol] 90.0 mg/dL Normal [facility] Comment on above: Performed By: #### T OTIBC, FERR #### [facility] [address] [place] [address] Dr. Tobias Murrieta CO2 [Moles/Vol] 30.3 mmol/L Normal 21.0-32.0 [facility] Comment on above: Performed By: #### T OTIBC, FERR #### [facility] [address] [place] [address] Dr. Tobias Murrieta Creatinine [Mass/Vol] 0.98 mg/dL Normal 0.70-1.[address] [facility] Comment on above: Performed By: #### T OTIBC, FERR #### [facility] [address] [place] [address] Dr. Tobias Murrieta EGFR-AF VENEZUELAN >60 Normal >=60 [facility] Comment on above: Performed By: #### T OTIBC, FERR #### [facility] [address] [address] [address] Tobias Murrieta EGFR-NON AF VENEZUELAN >60 Normal >=[address] [facility] Comment on above: Performed By: #### T OTIBC, FERR #### [facility] [address] [address] [address] Tobias Murrieta Glucose [Mass/Vol] 94 mg/dL Normal 74-106 [facility] Comment on above: Performed By: #### T OTIBC, FERR #### [facility] [address] [place] [address] Dr. Tobias Murrieta HDL NORMAL > or = 60 mg/dl - LO W CARDIOVASCULAR RISK <40 mg/dl - HIGH CARDIOVASCULAR RISK Normal [facility] Comment on above: Performed By: #### T OTIBC, FERR #### [facility] [address] [place] [address] Dr. Tobias Murrieta LDL CALC NORMAL SEE BELOW Normal [facility] Comment on above: Result Comment: <100 mg/dl OPTIMAL 100 - 129 mg/dl NEAR OR ABOVE OPTIMAL 130 - 159 mg/dl BORDERLINE HIGH 160 - 189 mg/dl HIGH >190 mg/dl VERY HIGH Performed By: #### T OTIBC, FERR #### [facility] [address] [place] [address] Dr. Tobias Murrieta Potassium [Moles/Vol] 4.5 mmol/L Normal 3.5-5.1 [facility] Comment on above: Performed By: #### T OTIBC, FERR #### [facility] [address] [place] [address] Dr. Tobias Murrieta Sodium [Moles/Vol] 144 mmol/L Normal 136-145 [facility] Comment on above: Performed By: #### T OTIBC, FERR #### [facility] [address] [address] [address] Tobias Murrieta Triglyceride [Mass/Vol] 45 mg/dL Normal <=[address] [facility] Comment on above: Performed By: #### T OTIBC, FERR #### [facility] [address] [address] [address] Tobias Murrieta Urea nitrogen [Mass/Vol] 27.0 mg/dL Critically high 7.0-18.[address] [facility] Comment on above: Performed By: #### T OTIBC, FERR #### [facility] [address] [address] [address] Tobias Murrieta Urea nitrogen/Creatinine [Mass ratio] 27.6 mg/mg Normal [facility] Comment on above: Performed By: #### T OTIBC, FERR #### [facility] [address] [address] [address] Tobias Murrieta VLDL CALC 9.0 mg/dL Normal [facility] Comment on above: Performed By: #### T OTIBC, FERR #### [facility] [address] [address] [address] Toibas Murrieat CBC panel Auto (Bld)on 01-18 Erythrocyte distribution width (RBC) [Ratio] 14.1 % 11.5 - 15.0 % [facility] Hematocrit (Bld) [Volume fraction] 41.2 % 39.0 - 51.0 % [facility] Hemoglobin (Bld) [Mass/Vol] 12.9 g/dL Low 13.0 - 17.0 g/dL [facility] MCH (RBC) [Entitic mass] 28.9 pg 26.0 - 34.0 pg [facility] MCHC (RBC) [Mass/Vol] 31.3 g/dL 30.5 - 36.0 g/dL [facility] MCV (RBC) [Entitic vol] 92.2 fL 80.0 - 100.0 fL [facility] Nucleated RBC (Bld) [#/Vol] 10*3/uL <0.01 k/uL [facility] Platelet mean volume (Bld) [Entitic vol] 10.9 fL 9.0 - 12.7 fL [facility] Platelets (Bld) [#/Vol] 151 10*3/uL 150 - 400 k/uL [facility] RBC (Bld) [#/Vol] 4.47 10*6/uL 4.20 - 6.0 0 m/uL [facility] WBC (Bld) [#/Vol] 4.66 10*3/uL 3.70 - 11. 00 k/uL [facility] Comprehensive metabolic 2000 panelon 01-18-2022 Albumin [Mass/Vol] 4.5 g/dL 3.9 - 4.9 g/dL [facility] ALP [Catalytic activity/Vol] 112 U/L 38 - 113 U/L [facility] ALT [Catalytic activity/Vol] 26 U/L 10 - 54 U/L [facility] Anion gap [Moles/Vol] 11 mmol/L 9 - 18 mmol/L [facility] AST [Catalytic activity/Vol] 33 U/L 14 - 40 U/L [facility] Bilirubin [Mass/Vol] 0.8 mg/dL 0.2 - 1 .3 mg/dL [facility] Calcium [Mass/Vol] 9.6 mg/dL 8.5 - 10. 2 mg/dL [facility] Chloride [Moles/Vol] 102 mmol/L 97 - 10 5 mmol/L [facility] CO2 [Moles/Vol] 27 mmol/L 22 - 30 mmol/L [facility] Creatinine [Mass/Vol] 0.95 mg/dL 0.73 - 1.22 mg/dL [facility] Estimated Glomerular Filtration Rate 83 mL/min/1.73m >=60 mL/min/1.73m [facility] Glucose [Mass/Vol] 109 mg/dL High 74 - 99 mg/dL [facility] Potassium [Moles/Vol] 5.5 mmol/L High 3.7 - 5.1 mmol/L [facility] Protein [Mass/Vol] 7.4 g/dL 6.3 - 8.0 g/dL [facility] Sodium [Moles/Vol] 140 mmol/L 136 - 144 mmol/L [facility] Urea nitrogen [Mass/Vol] 22 mg/dL 9 - 24 mg/dL [facility] NT PRO BNPon 01-18-2022 Natriuretic peptide.B prohormone N-Terminal [Mass/Vol] 600 pg/mL High <450 pg/mL [facility] CNPNon 03-31-2021 CNPN Telephone (FVPRAD) -------- BRITTA TORRES ([id number]) 1945 Date Time Provider Department 03/31/21 BRANDY MCKEON FVROSENDAD During your visit today, we recorded the following information about you: Brandy Mckeon APRN.CNP 03/31/2021 4:54 PM Signed Received request from [...] any further assistance is needed. Brandy Mckeon APRN.CNP ECHO 03/23/2021: - Exam indication: atrial fibrillation [...] pt and scheduled PFTs on 04/13/21 in [place] and Carotid US on 04/18/21 in [place]. 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 - aspirin, enteric coated (ADULT LOW DOSE ASPIRIN) 81 mg EC tablet Take 1 tablet by mouth once daily. - nitroglycerin sublingual (NITROQUICK) 0.3 mg SL (more content not included)... [facility] HEALTH 03-23-2021 ALLIED HEALTH HNO ID: [id number] Author: RT Manuel(R) Service: ? Author Type: Technologist Type: Allied [...] RT Manuel(R) March 23, 2021 9:36 AM Normal [facility] CTA CORONARY W IVCONon 03-23 CTA CORONARY W IVCON * * *Final Report* * * DATE OF EXAM: Mar 23 2021 10:21AM [facility] 0470 - CTA CORONARY W IVCON [...] Moderate left and severe right atrial dilation. Commercial Artist: ETHAN Transcribe Date/Time: Mar 23 2021 11:30A Dictated by : JONAS JOHN MD This examination was interpreted and the report reviewed and electr (more content not included)... Normal [facility] NURSING PROGon 09-16-2021 NURSING PROG HNO ID: [id number] Author: Sheryl Negrete RN Service: Nursing Author [...] 23, 2021 TIME: 11:07 AM PAGER/CONTACT #: [facility] NURSING PROG HNO ID: [id number] Author: Sheryl Negrete RN Service: Nursing Author [...] Negrete RN March 23, 2021 8:55 AM [facility] No Panel Information [facility] Vital Signs Date Time Vital Sign Value Performing Clinician Faci lity 03-16-2024 08:43-0400 Body mass index (BMI) [Ratio] 22.28 kg/m2 Patricia Archer OVERHEAD CLEANER.DIRECTOR TREASURER Work Phone: [facility] 03-16-2024 08:43-0400 Body weight 76.6 kg Patricia Suzi OVERHEAD CLEANER.DIRECTOR TREASURER Work Phone: [facility] 03-16-2024 08:43-0400 Diastolic blood pressure 78 mm[Hg] Patricia Archer OVERHEAD CLEANER.DIRECTOR TREASURER Work Phone: [facility] 03-16-2024 08:43-0400 Heart rate 91 /min Patricia Suzi OVERHEAD CLEANER.DIRECTOR TREASURER Work Phone: [facility] 03-16-2024 08:43-0400 SaO2% (BldA) [Mass fraction] 99 % Patricia Suzi OVERHEAD CLEANER.DIRECTOR TREASURER Work Phone: [facility] 03-16-2024 08:43-0400 Systolic blood pressure 132 mm[Hg] Patricia Archer OVERHEAD CLEANER.DIRECTOR TREASURER Work Phone: [facility] 11-15-2023 12:40-0400 Body height 185.4 cm Pacc 1 Work Phone: [facility] 11-15-2023 12:40-0400 Body mass index (BMI) [Ratio] 23.85 kg/m2 Pacc 1 Work Phone: [facility] 11-15-2023 12:40-0400 Body temperature 97.3 [degF] Pacc 1 Work Phone: [facility] 11-15-2023 12:40-0400 Body weight 82 kg Pacc 1 Work Phone: [facility] 11-15-2023 12:40-0400 Diastolic blood pressure 66 mm[Hg] Pacc 1 Work Phone: [facility] 11-15-2023 12:40-0400 Heart rate 66 /min Pacc 1 Work Phone: [facility] 11-15-2023 12:40-0400 Respiratory rate 16 /min Pacc 1 Work Phone: [facility] 11-15-2023 12:40-0400 SaO2% (BldA) [Mass fraction] 99 % [facility] 1 Work Phone: [facility] 11-15-2023 12:40-0400 Systolic blood pressure 142 mm[Hg] [facility] 1 Work Phone: [facility] 08-09-2023 09:32-0500 Body height 185.4 cm Ever Estrada MD Work Phone: [facility] 08-09-2023 09:32-0500 Body weight 84.4 kg Ever Estrada MD Work Phone: [facility] 08-09-2023 09:32-0500 Diastolic blood pressure 64 mm[Hg] Ever Estrada MD Work Phone: [facility] 08-09-2023 09:32-0500 Heart rate 62 /min Ever Estrada MD Work Phone: [facility] 08-09-2023 09:32-0500 Respiratory rate 18 /min Ever Estrada MD Work Phone: [facility] 08-09-2023 09:32-0500 SaO2% (BldA) [Mass fraction] 95 % Ever Estrada MD Work Phone: [facility] 08-09-2023 09:32-0500 Systolic blood pressure 106 mm[Hg] Ever Estrada MD Work Phone: [facility] 06-07-2023 08:42-0500 Body height 186.7 cm Amy Subramanian OVERHEAD CLEANER.DIRECTOR TREASURER Work Phone: [facility] 06-07-2023 08:42-0500 Body weight 84.37 kg Amy Subramanian OVERHEAD CLEANER.DIRECTOR TREASURER Work Phone: [facility] 06-07-2023 08:42-0500 Diastolic blood pressure 80 mm[Hg] Aym Subramanian OVERHEAD CLEANER.DIRECTOR TREASURER Work Phone: [facility] 06-07-2023 08:42-0500 Heart rate 86 /min Amy Subramanian OVERHEAD CLEANER.DIRECTOR TREASURER Work Phone: [facility] 06-07-2023 08:42-0500 Systolic blood pressure 150 mm[Hg] Amy Subramanian OVERHEAD CLEANER.DIRECTOR TREASURER Work Phone: [facility] 08-31-2022 08:12-0500 Body weight 83.19 kg Dharmesh Bagley MD Work Phone: [facility] 08-31-2022 08:12-0500 Diastolic blood pressure 76 mm[Hg] Dharmesh Bagley MD Work Phone: [facility] 08-31-2022 08:12-0500 Heart rate 112 /min Dharmesh Bagley MD Work Phone: [facility] 08-31-2022 08:12-0500 Systolic blood pressure 152 mm[Hg] Dharmesh Bagley MD Work Phone: [facility] 06-04-2022 08:37-0500 Body height 186.7 cm Ever Estrada MD Work Phone: [facility] 06-04-2022 08:37-0500 Body weight 83.46 kg Ever Estrada MD Work Phone: [facility] 06-04-2022 08:37-0500 Diastolic blood pressure 70 mm[Hg] Ever Estrada MD Work Phone: [facility] 06-04-2022 08:37-0500 Heart rate 113 /min Ever Estrada MD Work Phone: [facility] 06-04-2022 08:37-0500 Systolic blood pressure 152 mm[Hg] Ever Estrada MD Work Phone: [facility] 05-22-2022 09:55-0500 Blood Pressure Location [facility] [facility] 05-22-2022 09:55-0500 Diastolic blood pressure 78 mm[Hg] Ishaan DOWLING [facility] 05-22-2022 09:55-0500 Heart rate 112 /min Ishaan DOWLING [facility] 05-22-2022 09:55-0500 Respiratory rate 16 /min Ishaan DOWLING [facility] 05-22-2022 09:55-0500 Systolic blood pressure 152 mm[Hg] Ishaan DOWLING [facility] 03-01-2022 08:48-0400 Body height 186.7 cm Dharmesh Bagley MD Work Phone: [facility] 03-01-2022 08:48-0400 Body weight 81.65 kg Dharmesh Bagley MD Work Phone: [facility] 03-01-2022 08:48-0400 Diastolic blood pressure 80 mm[Hg] Dharmesh Bagley MD Work Phone: [facility] 03-01-2022 08:48-0400 Heart rate 110 /min Dharmesh Bagley MD Work Phone: [facility] 03-01-2022 08:48-0400 Systolic blood pressure 142 mm[Hg] Dharmesh Bagley MD Work Phone: [facility] 01-18-2022 09:11-0400 Body weight 79.38 kg Ever Estrada MD Work Phone: [facility] 01-18-2022 09:11-0400 Diastolic blood pressure 80 mm[Hg] Ever Estrada MD Work Phone: [facility] 01-18-2022 09:11-0400 Heart rate 95 /min Ever Estrada MD Work Phone: [facility] 01-18-2022 09:11-0400 Systolic blood pressure 123 mm[Hg] Ever Estrada MD Work Phone: [facility] Encounters Encounter Date Encounter Type Care Provider Facility Start: 03-19-2024 End: 03-19-2024 Telephone encounter Patricia Archer APRN.CNP Work Phone: Cardiology Comment on above: Medication Problem Start: 03-16-2024 End: 03-16-2024 Telephone encounter Patricia Archer APRN.CNP Work Phone: Internal Medicine Comment on above: Orders Start: 03-16-2024 End: 03-16-2024 ambulatory PATRICIA ARCHER Facility:[facility] Start: 03-16-2024 End: 03-16-2024 Office outpatient visit 15 minutes Patricia Archer APRN.CNP Work Phone: Cardiology Comment on above: 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 (Primary Dx) Start: 03-03-2024 End: 03-03-2024 ambulatory [facility] Facility:[facility] Start: 01-29-2024 Telephone encounter Ever shelton MD Work Phone: Cardiology Comment on above: covid exposure / que stions Start: 11-27-2023 End: 11-27-2023 ambulatory MARISOL SENIOR Facility:[facility] Start: 11-15-2023 End: 11-15-2023 Patient encounter procedure Eye Measurements Work Phone: Ophthalmology Comment on above: 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 Start: 11-15-2023 End: 11-15-2023 Admission to establishment [facility] [place] 1 Work Phone: Pre Anesthesia Start: 11-15-2023 End: 11-15-2023 ambulatory AUSTEN ONTIVEROS Facility:[facility] Start: 11-15-2023 End: 11-15-2023 Anesthesia consultation [facility] [place] 1 Work Phone: Pre Anesthesia Comment on above: Pre-operative cleara nce (Primary Dx); Chronic a-fib (HCC); 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 (HCC); Primary hypertension; Pure hypercholesterolemia; History of cardioversion; Permanent atrial fibrillation (HCC); Aortic valve stenosis, etiology of cardiac valve disease unspecified; Pulmonary hypertension (HCC) Start: 11-15-2023 [facility] Start: 11-15-2023 End: 11-15-2023 Preoperative state [facility] [place] 1 Work Phone: [facility] Work Phone: Start: 11-06-2023 End: 11-06-2023 ambulatory AUSTEN ONTIVEROS Facility:[facility] Start: 09-05-2023 Telephone encounter Ever shelton MD Work Phone: Cardiology Comment on above: Results Start: 09-03-2023 End: 09-03-2023 ambulatory MARISOL SENIOR Facility:[facility] Start: 09-03-2023 End: 09-03-2023 Patient encounter procedure Marisol Senior MD Work Phone: Ophthalmology Comment on above: Left posterior capsu lar opacification (Primary Dx); Pseudophakia, left eye; Combined forms of 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 Start: 08-09-2023 Clinisync Result Encounter Gen alondra External Data Provider [facility] External Department Unsolicited Start: 08-09-2023 Clinisync Result Encounter Gen alondra External Data Provider [facility] External Department Unsolicited Start: 08-09-2023 End: 08-10-2023 ambulatory EVER GOLDBERG Facility:[facility] Start: 08-09-2023 End: 08-09-2023 ambulatory EVER GOLDBERG Facility:[facility] Start: 08-09-2023 End: 08-09-2023 Patient encounter procedure Ever Goldberg MD Work Phone: Cardiology Comment on above: S/P AVR (Primary Dx) ; 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 (HCC); Pulmonary hypertension (HCC); Chronic a-fib (HCC); Pure hypercholesterolemia; Other forms of dyspnea Start: 06-12-2023 End: 06-12-2023 ambulatory AUSTEN ONTIVEROS Not Available Start: 06-07-2023 End: 06-07-2023 ambulatory AUSTEN ONTIVEROS Facility:[facility] Start: 06-07-2023 End: 06-07-2023 Patient encounter procedure Amy Subramanian APRN.CNP Work Phone: Cardiology Comment on above: Permanent atrial fib rillation (HCC) (Primary Dx); Essential hypertension Start: 02-28-2023 Refill Dharmesh desai MD Work Phone: [address] [place] [address] Comment on above: Refill Request Start: 02-12-2023 ambulatory Ever Goldberg MD Work Phone: Cardiology Comment on above: 20 mg rosuvastatin Start: 11-21-2022 Refill Dharmesh desai MD Work Phone: Cardiology Comment on above: Refill Request Start: 10-09-2022 End: 10-10-[address] AUSTEN ONTIVEROS . Facility:[facility] Start: 08-31-2022 End: 08-31-2022 Patient encounter procedure Dharmesh Bagley MD Work Phone: Cardiology Comment on above: Chronic atrial fibri llation (HCC) (Primary Dx) Start: 07-10-2022 End: 07-11-[address] AUSTEN ONTIVEROS . Facility: Start: 06-16-2022 Encounter for prepro cedural laboratory examination DR ISHAAN DOWLING . [facility] Start: 06-13-2022 End: 06-14-2022 ambulatory Ishaan DOWLING Facility:[id number] Start: 06-09-2022 End: 06-10-[address] ISHAAN DOWLING . Facility: Start: 06-09-2022 End: 06-10-2022 Encounter for preprocedural laboratory examination DR ISHAAN DOWLING . Facility: Start: 06-04-2022 End: 06-04-2022 Patient encounter procedure Ever Goldberg MD Work Phone: Cardiology Comment on above: Coronary artery dise ase involving tonto apache coronary artery of t[place] apache heart with angina pectoris (HCC) (Primary Dx); S/P AVR (aortic valve replacement) bio; Pulmonary hypertension (HCC); Chronic a-fib (HCC); Pure hypercholesterolemia Start: 05-22-2022 End: 05-23-2022 ambulatory Ishaan DOWLING Facility:[facility] Start: 05-22-2022 End: 05-22-2022 Patient encounter procedure Ishaan DOWLING [facility] [place] Start: 05-11-2022 Telephone encounter Austen Ontiveros MD Work Phone: [address] [place] [address] Comment on above: Patient Question Start: 05-11-2022 ambulatory Ishaan BACADeidra Facility:[facility] Start: 05-02-2022 ambulatory Ishaan DOWLING Facility :[facility] Start: 04-25-2022 End: 04-26-[address] AUSTEN ONTIVEROS . Facility: Start: 04-11-2022 Refill Amymarguerite Subramanian APRN.CNP Work Phone: Cardiology Comment on above: Refill Request Start: 03-01-2022 End: 03-01-2022 Patient encounter procedure Dharmesh Bagley MD Work Phone: Cardiology Comment on above: Atrial fibrillation, persistent (HCC) (Primary Dx) Start: 01-24-2022 End: 01-25-[address] AUSTEN ONTIVEROS . Facility: Start: 01-18-2022 End: 01-18-2022 Patient encounter procedure Ever Goldberg MD Work Phone: Cardiology Comment on above: Coronary artery dise ase involving tonto apache coronary artery of tonto apache heart with angina pectoris (HCC) (Primary Dx); Nonrheumatic aortic valve stenosis; S/P AVR (aortic valve replacement); Pulmonary hypertension (HCC); Atrial fibrillation, persistent (HCC); Chronic diastolic (congestive) heart failure (HCC) Start: 12-21-2021 Telephone encounter Dharmesh Bagley MD Work Phone: Cardiology Comment on above: Elevated HR Start: 10-31-[address] AUSTEN ONTIVEROS . Fac ility:[facility] Start: 10-23-2021 Telephone encounter Dharmesh Bagley MD Work Phone: Cardiology Comment on above: Care Coordination Start: 05-29-2021 End: 06-28-2021 Patient encounter status [facility] 1 Work Phone: [facility] Procedures Date Procedure Procedure Detail Performing Clinician Start: 11-15-2023 IOL BIOMETRY W/ IOL CALC OD (RIGHT EYE) Marisol Senior MD Work Phone: Start: 09-03-2023 Post-cataract laser surgery Marisol Senior MD Work Phone: Start: 09-03-2023 Computerized ophthal tacho imaging retina Marisol Senior MD Work Phone: Start: 08-09-2023 [facility] NT-PROBNP [facility]PL[facility] Generic External Data Provider Start: 06-07-2023 Ecg routine ecg w/le ast 12 lds i&r only [facility] Provider Start: 08-31-2022 Ecg routine ecg w/le ast 12 lds i&r only [facility] Provider Start: 06-19-2021 Annuloplasty of tric uspid valve Ishaan JOSEY Start: 06-19-2021 Coronary artery bypa ss grafts x 3 Ishaan JOSEY Start: 06-19-2021 Maze procedure Ishaan JOSEY Start: 06-19-2021 Replacement of aortic valve Ishaan DOWLING Start: 07-08-2015 Cardioversion Ishaan DUMONT Start: 10-05-2013 right palmar fasciec iris, two locations, thumb and ring finger based Ishaan DOWLING Start: 07-08-2012 Cardioversion Ishaan DUMONT Start: 07-08-2009 Colonoscopy Ishaan VASQUEZ Appendectomy Ishaan DOWLING Cardiac ablation usi ng fluoroscopy guidance Ishaan DOWLING EXCISION LESION 1 Ishaan VASQUEZ Comment on above: FOREHEAD Extraction of cataract Marc liu JOSEY Intraocular lens imp lant (physical object) Ishaan DOWLING Tonsillectomy and adenoidectomy Ishaan DOWLING Plan of Treatment Date Care Activity Detail Author Start: 10-18-2031 Urine microalbumin profile DTaP,Tdap,Td Vaccine (4 - Td or Tdap) [facility] Start: 01-18-2027 LIPID SCREEN LIPID SCREEN [facility] Start: 01-18-2025 DIABETES SCREEN DIABETES SCREEN [facility] Start: 01-18-2025 Diabetes Screening Diabetes Screening [facility] Start: 10-09-2024 End: 10-09-2024 Patient encounter procedure 10/09/2024 10:00 AM EDT Office Visit Cardiology [address] [place] [address] [place] [address] [place] [address] Follow up Cardiology Comment on above: Follow up Start: 09-02-2024 End: 02-24-2025 IOL BIOMETRY W/ IOL CALC OD (RIGHT EYE) IOL BIOMETRY W/ IOL CALC OD (RIGHT EYE) OPHT Imaging Routine Combined forms of 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 Expected: 09/02/2024, Expires: 02/24/2025 [facility] Work Phone: Comment on above: Expected: 09/02/2024, Expires: Start: 08-09-2024 BP Controlled (<130/80) BP Controlled (<130/80) [facility] [place] in Start: 08-09-2024 Hepatitis B surface antibody level LDL Cholesterol [facility] Start: 07-05-2024 DIABETES SCREEN DIABETES SCREEN [facility] Start: 06-15-2024 End: 06-15-2024 Patient encounter procedure 06/15/2024 9:20 AM EST Office Visit Cardiology [address] [place] [address] [place] [address] [place] [address] Return in about 1 year (around 06/07/2024) for Dr. Bagley . Cardiology Comment on above: Return in about 1 year (around 06/07/2024 ) for Dr. Bagley . Start: 03-19-2024 End: 06-18-2024 CBC panel - Blood by Automated count COMPLETE BLOOD COUNT Lab Routine Current use of rn long term care anticoagulation Expected: 03/19/2024, Expires: 06/18/2024 [facility] Work Phone: Comment on above: Expected: 03/19/2024, Expires: Start: 03-16-2024 End: 06-15-2024 Comprehensive metabolic 2000 panel - Serum or Plasma COMPREHENSIVE METABOLIC PANEL Lab Routine Coronary artery disease involving coronary bypass graft of 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 Expected: 03/16/2024, Expires: 06/15/2024 [facility] Comment on above: Expected: 03/16/2024, Expires: Start: 03-16-2024 End: 06-15-2024 Lipid 1996 panel - Serum or Plasma LIPID PANEL BASIC Lab Routine Coronary artery disease involving coronary bypass graft of 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 Expected: 03/16/2024, Expires: 06/15/2024 [facility] Work Phone: Comment on above: Expected: 03/16/2024, Expires: Start: 03-08-2024 Covid-19 Vaccine () Covid-19 Vaccine () [facility] Start: 03-08-2024 Influenza vaccination [facility] Start: 02-17-2024 End: 02-17-2024 Patient encounter procedure Cardiology Comment on above: 6 mo follow up Start: 02-03-2024 End: 02-03-2024 Patient encounter procedure 02/03/2024 8:50 AM EDT Office Visit Cardiology [address] [place] [address] Echo just prior to next visit Cardiology Comment on above: Echo just prior to next visit Start: 11-27-2023 End: 11-27-2023 Admission to same day surgery center 11/27/2023 1:20 PM EDT - 11/27/2023 1:50 PM EDT Surgery Ambulatory Surgery [address] [place] [address] Marisol Senior V, MD [address] [place] [address] PHACOEMULSIFICATION CATARACT IMPLANT INTRAOCULAR LENS W/O ENDOSCOPIC CYCLOPHOTOCOAGULATION Ambulatory Surgery Comment on above: PHACOEMULSIFICATION CATARACT IMPLANT INT RAOCULAR LENS W/O ENDOSCOPIC CYCLOPHOTOCOAGULATION Start: 11-27-2023 End: 11-27-2023 Oph bmtry prtl coher intrfrmtry io lens pwr tres OPHTHALMIC BIOMETRY BY PARTIAL COHERENCE INTERFEROMETRY W/INTRAOCULAR LENS POWER CALCULATION Combined forms of 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 11/27/2023 1:20 PM EDT [facility] ISREALERICK Start: 11-27-2023 Subsequent hospital visit by physician 11/27/2023 1:20 PM EDT Hospital Encounter Ambulatory Surgery [address] [place] [address] Marisol Senior V, MD [address] [place] [address] Combined forms of 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 [H25.811] Ambulatory Surgery Comment on above: Combined forms of age-related cataract o f right eye [H25.811] Start: 11-27-2023 End: 11-27-2023 Xcapsl ctrc rmvl insj io lens prosth w/o ecp PHACOEMULSIFICATION CATARACT IMPLANT INTRAOCULAR LENS W/O ENDOSCOPIC CYCLOPHOTOCOAGULATION Combined forms of 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 11/27/2023 1:20 PM EDT VAZQUEZ PERALES Start: 07-08-2023 Advance Directive Discussion Advance Directive Discussion [facility] Start: 07-08-2023 Behavioral Health Screening Behavioral Health Screening [facility] Start: 07-08-2023 Depression Assessment Depression Assessment [facility] Start: 03-08-2023 Covid-19 Vaccine ( season) Covid-19 Vaccine () [facility] Start: 03-08-2023 Influenza vaccination [facility] Start: 01-18-2023 Hepatitis B surface antibody level LDL CHOLESTEROL [facility] Start: 12-02-2022 End: 02-01-2023 Lipid 1996 panel - Serum or Plasma LIPID PANEL BASIC Lab Routine 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 (HCC) Pure hypercholesterolemia Expected: 12/02/2022, Expires: 02/01/2023 [facility] Work Phone: Comment on above: Expected: 12/02/2022, Expires: 3 Start: 09-01-2022 COVID-19 VACCINE (5 - Moderna series) COVID-19 VACCINE (5 - Moderna series) [facility] Start: 07-08-2022 ADVANCE DIRECTIVE DISCUSSION ADVANCE DIRECTIVE DISCUSSION [facility] Start: 07-08-2022 DEPRESSION ASSESSMENT DEPRESSION ASSESSMENT [facility] Start: 03-08-2022 Influenza vaccination INFLUENZA (#1) [facility] Start: 01-18-2022 End: 03-20-2022 Lipid 1996 panel - Serum or Plasma [facility] Work Phone: Comment on above: Expected: 01/18/2022, Expires: 2 Start: 09-04-2021 COVID-19 VACCINE (4 - Booster for Moderna series) COVID-19 VACCINE (4 - Booster for Moderna series) [facility] Start: 07-08-2021 ADVANCE DIRECTIVE DISCUSSION ADVANCE DIRECTIVE DISCUSSION [facility] Start: 07-08-2021 DEPRESSION ASSESSMENT DEPRESSION ASSESSMENT [facility] Start: 06-30-2021 COVID-19 VACCINE (4 - Booster for Moderna series) COVID-19 VACCINE (4 - Booster for Moderna series) [facility] Start: 06-02-2021 COVID-19 VACCINE (2 - Moderna 3-dose series) COVID-19 VACCINE (2 - Moderna 3-dose series) [facility] Start: 06-02-2021 COVID-19 VACCINE (2 - Moderna series) COVID-19 VACCINE (2 - Moderna series) [facility] Start: 07-10-2020 Urine microalbumin profile DTAP,TDAP,TD (2 - Tdap) [facility] Start: 2011 PNEUMOVAX AGE 65 AND OVER WITH 5YR LOOKBACK (#1) PNEUMOVAX AGE 65 AND OVER WITH 5YR LOOKBACK (#1) [facility] Start: 1996 SHINGRIX VACCINE (1 of 2) SHINGRIX VACCINE (1 of 2) [facility] Start: 1991 COLOGUARD (FIT-DNA) COLOGUARD (FIT-DNA) [facility] Start: 1991 Colonoscopy COLONOSCOPY [facility] Start: 1991 COLORECTAL CANCER SCREENING COLORECTAL CANCER SCREENING [facility] Start: [address] COLONOGRAPHY [facility] Start: 1991 FECAL OCCULT BLOOD FECAL OCCULT BLOOD [facility] Start: 1991 SIGMOIDOSCOPY SIGMOIDOSCOPY [facility] Start: 1981 LIPID SCREEN LIPID SCREEN [facility] Start: 1964 ANNUAL PCP TEAM CHRONIC DISEASE VISIT ANNUAL PCP TEAM CHRONIC DISEASE VISIT [facility] Start: 1964 Anxiety Screening Anxiety Screening [facility] Start: 1964 BP CONTROLLED (<130/80) BP CONTROLLED (<130/80) [facility] [place] in Start: 1964 Depression Screening Depression Screening [facility] Start: 1964 Hepatitis B surface antibody level LDL CHOLESTEROL [facility] Start: 1964 HEPATITIS C SCREENING HEPATITIS C SCREENING [facility] Start: 1964 Hepatitis C screening Hepatitis C Screening [facility] Start: 1958 Adult depression screening assessment DEPRESSION SCREENING [facility] Start: 1952 PNEUMOCOCCAL: 65+ (1 - PCV) PNEUMOCOCCAL: 65+ (1 - PCV) [facility] CORNEAL TOPOGRAPHY P ENTACAM OD (RIGHT EYE) CORNEAL TOPOGRAPHY PENTACAM OD (RIGHT EYE) OPHT Imaging Routine Combined forms of 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 09/03/2023 3:07 PM EST [facility] Work Phone: End: 08-31-2023 ECG COMPLETE ECG COMPLETE ECG Routine Chronic atrial fibrillation (HCC) 1 Occurrences starting 08/31/2022 until 08/31/2023 [facility] Work Phone: Comment on above: 1 Occurrences starting 08/31/2022 until 08/31/2023 ECG COMPLETE ECG COMPLETE ECG 08/31/2022 8:38 AM EST [facility] ECG COMPLETE [facility] Work Phone: Comment on above: Ordered: 06/07/2023 End: 08-09-2024 Echocardiography ECHO Cardiology Routine S/P AVR Pulmonary hypertension (HCC) 1 Occurrences starting 08/09/2023 until 08/09/2024 [facility] Work Phone: Comment on above: 1 Occurrences starting 08/09/2023 until 08/09/2024 [facility] [place] Immunizations Immunization Date Immunization Notes Care Provider Lisa kwan 05-16-2023 influenza virus vacc ine, unspecified formulation Ever Estrada MD Work Phone: [facility] 05-01-2022 influenza virus vacc ine, unspecified formulation Generic Provider [facility] 05-01-2022 Moderna Bivalent Daniel ster Vaccination Generic Provider [facility] 10-17-2021 tetanus toxoid, redu jim diphtheria toxoid, and acellular pertussis vaccine, adsorbed Generic Provider [facility] 05-05-2021 influenza, high dose seasonal, preservative-free Generic Provider [facility] 04-07-2021 influenza virus vacc ine, unspecified formulation Generic Provider [facility] 09-09-2020 Moderna SARS-CoV-2 Vaccination Generic Provider [facility] 08-12-2020 Moderna SARS-CoV-2 Vaccination Generic Provider [facility] 04-15-2020 influenza, injectabl e, quadrivalent, preservative free Generic Provider [facility] 04-15-2020 Influenza, Seasonal, Quadrivalent, Adjuvanted Generic Provider [facility] 04-07-2020 influenza virus vacc ine, unspecified formulation Generic Provider [facility] 05-02-2019 influenza, high dose seasonal, preservative-free Generic Provider [facility] 05-02-2019 Influenza, High-dose Seasonal, Quadrivalent, Preservative Free Generic Provider [facility] 04-07-2019 influenza virus vacc ine, unspecified formulation Generic Provider [facility] 05-09-2018 influenza, high dose seasonal, preservative-free Dharmesh Bagley MD Work Phone: [facility] Work Phone: 05-09-2018 influenza, injectabl e, quadrivalent, preservative free Generic Provider [facility] 04-20-2018 influenza virus vacc ine, unspecified formulation Dharmesh Bagley MD Work Phone: [facility] Work Phone: 04-20-2018 pneumococcal polysaccharide vaccine, 23 valent Generic Provider [facility] 12-24-2017 zoster vaccine, live Generic Provide r [facility] 12-14-2017 zoster vaccine recombinant Generic Provider [facility] 10-25-2017 zoster vaccine, live Generic Provide r [facility] 10-22-2017 zoster vaccine recombinant Generic Provider [facility] 04-11-2017 influenza, injectabl e, quadrivalent, preservative free Generic Provider [facility] 10-10-2015 pneumococcal conjuga te vaccine, 13 valent Generic Provider [facility] 04-18-2015 influenza, seasonal, injectable, preservative free Generic Provider [facility] 09-27-2014 pneumococcal polysaccharide vaccine, 23 valent Generic Provider [facility] 09-14-2014 zoster vaccine, live Generic Provide r [facility] 04-07-2014 influenza virus vacc ine, unspecified formulation Generic Provider [facility] 04-07-2014 pneumococcal polysaccharide vaccine, 23 valent Generic [facility] 04-07-2014 pneumococcal vaccine , unspecified formulation Generic Provider [facility] 03-31-2012 seasonal influenza, intradermal, preservative free Generic [facility] 07-10-2010 diphtheria, tetanus toxoids and acellular pertussis vaccine Generic Provider [facility] 07-10-2010 diphtheria, tetanus toxoids and acellular pertussis vaccine, unspecified formulation Dharmesh Bagley MD Work Phone: [facility] Work Phone: 07-08-2010 tetanus toxoid, redu jim diphtheria toxoid, and acellular pertussis vaccine, adsorbed Generic Provider [facility] 08-24-2009 novel influenza-H1N1 -09, preservative-free, injectable Generic [facility] Payers Date Payer Category Payer Unknown MMO MMO MEDICARE SUPPLEMENT [id number] 2019-Present [phone] [address] [place] [address] Indemnity [id number] 2019 Unknown [id number] 2011 Medicare [id number] 2011 Medicare [id number] 1959 Medicare [id number] 1959 Self-pay [id number] 1959 Unknown [id number] 1946 Unknown [id number] 1946 Unknown [id number] 1946 Unknown [id number] 1946 Unknown [id number] 1946 Unknown [id number] 1946 Unknown [id number] 1946 Unknown [id number] 1946 Unknown [id number] 1946 Unknown [id number] Unknown [id number] Unknown [id number] Social History Date Type Detail Facility Start: 05-18-2013 End: 03-01-2022 Tobacco smoking status NHIS Never smoked tobacco [facility] Start: 05-18-2013 End: 03-01-2022 Tobacco use and exposure Smokeless tobacco non-user [facility] Start: 08-23-2021 End: 03-16-2024 Alcohol intake Current drinker of alcohol (finding) [facility] Start: 05-29-2021 History SDOH Alcohol Comment rare beer after mowing lawn in summer [facility] Start: 1945 Sex Assigned At Not on file [facility] Start: 1945 Sex Assigned At Male [facility] Start: 01-08-2022 End: 03-01-2022 Exposure to SARS-CoV-2 (event) Not sure [facility] Tobacco smoking status Never [facility] [place] Start: 02-11-2023 End: 11-15-2023 Sex Assigned At Male [facility] Start: 02-11-2023 End: 11-15-2023 History of Social function [facility] Start: 01-13-2022 Gender identity Identifies as male gender (finding) [facility] Start: 01-13-2022 Sexual orientation Heterosexual (finding) [facility] Start: 06-12-2023 Alcohol intake Ex-drinker (finding) [facility] Within the last year , have you been afraid of your partner or ex-partner? No [facility] Do you belong to any clubs or organizations such as adventism groups, unions, fraternal or athletic groups, or [...] Caffeine intake: 3 cups decaf per day [facility] Medical Equipment Procedure Code Equipment Code Equipment Origin al Text Equipment Identifier Dates Clip Atriclip Gillinov-Minerva 180d Long 45mm 25mm Internal Head - [id number] Start: 06-19-2021 [place] Thk1.65mm P tfe 4x.5in Cardiovascular Sterile - [id number] Start: 06-19-2021 Ring Hanks Mc3 32mm Titanium Silicone Rubber Polyester Annuloplasty 1 - [id number] Start: 06-19-2021 Valve Hanks In spiris Resilia 25mm Pericardial Aortic Bioprosthesis - [id number] Start: 06-19-2021 Comment on above: Description: avr [id number] Hallie on Uva - [id number] Start: 11-27-2023 Comment on above: Description: -0.15 Functional Status Date Assessment Result Facility 05-22-2022 Functional Status N/A [facility] [place] Clinical Notes 03-23-2021 to 03-19-2024 Telephone Encounter - Grazyna Bucio RN - 03/19/2024 3:54 PM EDTTelephone Encounter - Grazyna Bucio RN - 03/19/2024 3:54 PM EDTTelephone Encounter - Grazyna Bucio RN - 03/19/2024 3:37 PM EDT Note Date & Type Note Facility 03-19-2024 Telephone encounter Note Scripts faxed to number provided with confirmation. Called patient and updated him, pt thankful [facility] 03-19-2024 Miscellaneous Notes Scripts faxed to number provided with confirmation. Called patient and updated him, pt thankful The following approved medication requests have been transmitted electronically. Requested Prescriptions Signed Prescriptions Disp Refills apixaban (ELIQUIS) 5 mg tab(s) 180 tablet 3 Sig: Take 1 tablet by mouth two times a day. Authorizing Provider: BRANDY MCKEON bisoprolol (ZEBETA) 10 mg tablet 180 tablet 3 Sig: Take 2 tablets by mouth once daily. Authorizing Provider: BRANDY MCKEON rosuvastatin (CRESTOR) 10 mg tablet 90 tablet 3 Sig: Take 1 tablet by mouth once daily. Authorizing Provider: BRANDY MCKEON APRN.CNP Pended scripts, will ask Brandy Mckeon CNP in office for help Britta is calling Patricia Archer APRN.CNP today saying that the 3 prescriptions sent on 03/16/24 went to the wrong pharmacy. Meds is for his but Britta's have to go to [place]. [facility] fax [phone]. Please advise. Patient has been identified by name and birthdate. Duration of symptoms: N/A Person calling: self Call patient at: on cell [phone] (home) [phone] (cell) Was an appointment scheduled: No Closing statement: Results or non-symptom based questions: Thank you for calling [facility], your call will be returned within the next business day. - Sowmya Dunn - documented in this encounter [facility] 03-19-2024 Telephone encounter Note The following approved medication requests have been transmitted electronically. Requested Prescriptions Signed Prescriptions Disp Refills apixaban (ELIQUIS) 5 mg tab(s) 180 tablet 3 Sig: Take 1 tablet by mouth two times a day. Authorizing Provider: BRANDY MCKEON bisoprolol (ZEBETA) 10 mg tablet 180 tablet 3 Sig: Take 2 tablets by mouth once daily. Authorizing Provider: BRANDY MCKEON rosuvastatin (CRESTOR) 10 mg tablet 90 tablet 3 Sig: Take 1 tablet by mouth once daily. Authorizing Provider: BRANDY MCKEON APRN.CNP [facility] 03-19-2024 Telephone encounter Note Pended scripts, will ask Brandy Mckeon CNP in office for help [facility] 03-19-2024 Telephone encounter Note Britta is calling Patricia Archer APRN.CARMEN today saying that the 3 prescriptions sent on 03/16/24 went to the wrong pharmacy. Meds is for his but Britta's have to go to [place]. [facility] fax [phone]. Please advise. Patient has been identified by name and birthdate. Duration of symptoms: N/A Person calling: self Call patient at: on cell [phone] (home) [phone] (cell) Was an appointment scheduled: No Closing statement: Results or non-symptom based questions: Thank you for calling [facility], your call will be returned within the next business day. - Sowmya Salinas Pss - [facility] 03-16-2024 Telephone encounter Note Labs faxed with fax confirmation [facility] 03-16-2024 Miscellaneous Notes Labs faxed with fax confirmation Britta is calling Patricia Archer APRN.CARMEN today to request lab orders to be faxed over to [facility]. Please advise. Fax number: [phone] Patient has been identified by name and birthdate. Duration of symptoms: N/A Person calling: self Call patient at: at home [phone] (home) [phone] (cell) Was an appointment scheduled: No Closing statement: Results or non-symptom based questions: Thank you for calling [facility], your call will be returned within the next business day. Thank you, Mouna Gomez documented in this encounter [facility] 03-16-2024 Telephone encounter Note Britta is calling Patricia Archer APRN.DIRECTOR TREASURER today to request lab orders to be faxed over to [facility]. Please advise. Fax number: [phone] Patient has been identified by name and birthdate. Duration of symptoms: N/A Person calling: self Call patient at: at home [phone] (home) [phone] (cell) Was an appointment scheduled: No Closing statement: Results or non-symptom based questions: Thank you for calling [facility], your call will be returned within the next business day. Thank you, Mouna Gomez [facility] 03-16-2024 History of Present illness Narrative Images from the original note were not included. [facility] [place] [facility] Department of Cardiovascular Medicine SECTION OF CLINICAL CARDIOLOGY OUTPATIENT VISIT DATE March 16, 2024 OUTPATIENT VISIT TYPE ESTABLISHED PRIMARY CARE PHYSICIAN: Austen Ontiveros MD [address] [place] [address] CHIEF COMPLAINT: Follow up HISTORY OF PRESENT ILLNESS: Mr. Torres is a 78 year old male patient of Dr. Goldberg and Dr. Bagley [facility] of permanent atrial fibrillation (rate control strategy, [id number]: 2%), known CAD (: s/p CABG x3, PECK to LAD, SVG to PDA, left radial artery to the obtuse marginal 1, TV repair with a ring, AVR with edward inspiris valve, left atrial appendage clip, cryo maze), preserved LV systolic heart function (echo: 2021: EF 56%, pulmonary hypertension RVSP 49mmHg, LA severely dilated), hypertension, hyperlipidemia, [place] anticoagulation, anemia who presents today for a cardiovascular medicine follow-up visit. Echo was completed 03/03/24 that revealed LVEF 52%, mild RV dysfunction, LA dilation, RA dilation, s/p TV repair mild TR 7/2, s/p prosthetic AVR #25 trace AR 10/6 BP 120/78 Hr while active up to 110. active walks 4 miles a day and bikes outside. Diet is good. No complaints at this time He denies chest pain, shortness of breath, orthopnea, cough, edema, palpitations, PND, lightheadedness or syncope. 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 ([facility]) Comment: s/p CABG x3, PECK to LAD, SVG to PDA, left radial artery to obtuse marginal No date: HTN (hypertension) No date: Hyperlipidemia No date: Nonexudative senile macular degeneration of retina No date: Pseudophakia Comment: os 06/2021: S/P AVR Comment: s/p AVR #25 inspiris valve 06/2021: S/P left atrial appendage ligation Comment: with bypass surgery 06/2021: S/P Maze operation for atrial fibrillation Comment: s/p maze with cryo with bypass surgery 06/2021: S/P tricuspid valve repair Comment: annuloplasty band PAST SURGICAL HISTORY 07/08/2006: AFIB ABLATION/PULM VEIN ISOLATION Comment: Yanique No date: APPENDECTOMY Comment: age 9 12/09/2013: ATRIAL FIBRILLATION/FLUTTER ABLATION 07/07/2021: AVR W/AORTIC ANNULUS ENLARGEMENT 11/02/13, 12/01/2014: CARDIOVERSION 10/06/2013: PAST SURGICAL HISTORY OF Comment: trigger finger release 07/08/2004: REMOVAL SKIN LESION 0.6-1.0 CM Comment: head No date: REMV CATARACT EXTRACAP,INSERT LENS; Left 07/08/2006: JEREMY (TRANSESOPHAGEAL ECHO) 07/08/1957: TONSILLECTOMY & ADENOIDECTOMY <AGE 13 SOCIAL HISTORY Social History Tobacco Use Smoking status: Never Smokeless tobacco: Never Substance Use Topics Alcohol use: Yes Comment: rare beer after mowing lawn in summer Drug use: No FAMILY HISTORY Problem Relation Age of Onset Cancer Father Stroke Mother Coronary Artery Disease Sister GI Sister Hypertension Sister Stroke Paternal Grandmother No Ocular Disease Other ALLERGIES: ALLERGIES Allergen Reactions Deconamine [Chlorph* Unknown Niaspan [Niacin] Unknown Pseudoephedrine Unknown Other Reaction(s): Urinary Retention Sulfamethoxazole-Tr* Unknown MEDICATIONS: aspirin, enteric coated (ADULT LOW DOSE ASPIRIN) 81 mg EC tablet Take 1 tablet by mouth every other day. ferrous sulfate (IRON ORAL) Take by mouth. tamsulosin HCl (FLOMAX ORAL) Take 0.4 mg by mouth once daily. CALCIUM CARBONATE/VITAMIN D3 (VITAMIN D-3 ORAL) Take 2,000 Units by mouth twice daily. montelukast 10 mg tablet Take 10 mg by mouth daily at bedtime. MULTIVIT &MINERALS/FERROUS FUM (MULTI VITAMIN ORAL) Take by mouth once daily. Golden Eagle-3 Fatty Acids-Vitamin E 1,000 mg cap Take 1 capsule by mouth twice daily. apixaban (ELIQUIS) 5 mg tab(s) Take 1 tablet by mouth two times a day. bisoprolol (ZEBETA) 10 mg tablet Take 2 tablets by mouth once daily. rosuvastatin (CRESTOR) 10 mg tablet Take 1 tablet by mouth once daily. prednisoLONE acetate (PRED FORTE) 1 % ophthalmic suspension USE DIRECTED BY PHYSICIAN, IN OPERATIVE EYE, BEGINNING ONE DAY AFTER SURGERY keTORolac (ACULAR) 0.5 % ophthalmic solution USE DIRECTED BY PHYSICIAN, IN OPERATIVE EYE, BEGINNING ONE DAY AFTER SURGERY CARDIOVASCULAR MEDICINE TESTING: Echo 03/04/2024 8:19 AM - [facility], Cecile [facility] In Impression CONCLUSIONS: - Exam indication: Routine surveillance of moderate or severe valvular regurgitation (>1yr) - The left ventricle is normal in size. There is mild concentric left ventricular hypertrophy. Left ventricular systolic function is mildly decreased. EF = 52 5% (2D biplane) - The right ventricle is normal in size. Right ventricular systolic function is mildly decreased. - The left atrial cavity is moderately dilated. - The right atrial cavity is dilated. - Post tricuspid valve repair. Hanks MC3 Tricuspid Ring (size #32). There is mild (1+) tricuspid valve regurgitation. The peak gradient is 7 mmHg and the mean gradient is 3 mmHg. Previous p/m gradients 5/2mmHg. - Inspiris prosthetic aortic valve (size #25). There is trace aortic valve regurgitation. The peak gradient is 10 mmHg, the mean gradient is 6 mmHg and the dimensionless valve index is 0.45. Previous p/m gradients 6/3mmHg. - Exam was compared with the prior echocardiographic exam performed on 01/18/2022 There is no significant change. EW OF SYSTEMS: Complete ROS completed, pertinent items noted in HPI I have confirmed and edited as necessary the PFSH obtained by others. PHYSICAL EXAM: BP 132/78 Pulse 91 Wt 76.6 kg (168 lb 14 oz) SpO2 99% BMI 22.28 kg/m Body mass index is 22.28 kg/m . GENERAL: Alert, no distress, cooperative SKIN: Skin color, texture, turgor normal. No rashes or lesions. NECK: No jugulovenous distention, No carotid bruits LUNGS: Lungs clear to auscultation. Good diaphragmatic excursion. CARDIAC: irregularly irregular + murmur ABDOMEN: Abdomen soft, non-tender, BS normal EXTREMITIES: Extremities normal, no deformities, edema, clubbing or skin discoloration. Good capillary refill. NEURO: Alert, oriented X 3 PULSES: 2+ radial Assessment and Plan Coronary artery disease s/p CABG PECK to LAD, SVG to PDA, left radial artery to the obtuse marginal Valvular disease s/p Tvr and bioprosthetic AV 2020 Persistent afib s/p LA clipping Pulmonary hypertension HLD HTN Doing well without cardiac problems - echo completed recently tricuspid valve repair 7/3 gradients, aortic valve gradients 10/6 mild MR, TR, PH, trace NH - euvolemic on exam, NT pro BNP 1619 in August, repeat BNP at OSH later that month 647, will low threshold to start diuretic vs SGLT2 if needed. - c/w aspirin/apixiban, bisoprolol 10 mg daily - would increase rosuvastatin to 20 mg daily given LDL 82 in aug, goal < 70, new lipid panel ordered - continue diet/exercise Follow up in 6 months or sooner if needed CONTACT INFORMATION: Patricia Archer APRN.DIRECTOR TREASURER I spent 29 minutes in the visit, with more than 50% of the total [id number] time of the visit in counseling / coordination of care. documented in this encounter [facility] 03-16-2024 Note HNO ID: [id number] Author: PATRICIA ARCHER APRN.CARMEN Service: ? Author Type: Nurse Practitioner Type: Progress Notes Filed: 03/16/2024 09:27 Note Text: [facility] [place] [facility] Department of Cardiovascular Medicine SECTION OF CLINICAL CARDIOLOGY OUTPATIENT VISIT DATE March 16, 2024 OUTPATIENT VISIT TYPE ESTABLISHED PRIMARY CARE PHYSICIAN: Austen Ontiveros MD [address] [place] [address] CHIEF COMPLAINT: Follow up HISTORY OF PRESENT ILLNESS: Mr. Torres is a 78 year old male patient of Dr. Goldberg and Dr. Bagley [facility] of permanent atrial fibrillation (rate control strategy, [id number]: 2%), known CAD (: s/p CABG x3, PECK to LAD, SVG to PDA, left radial artery to the obtuse marginal 1, TV repair with a ring, AVR with edward inspiris valve, left atrial appendage clip, cryo maze), preserved LV systolic heart function (echo: 2021: EF 56%, pulmonary hypertension RVSP 49mmHg, LA severely dilated), hypertension, hyperlipidemia, [place] [facility] anticoagulation, anemia who presents today for a cardiovascular medicine follow-up visit. Echo was completed 03/03/24 that revealed LVEF 52%, mild RV dysfunction, LA dilation, RA dilation, s/p TV repair mild TR 7/2, s/p prosthetic AVR #25 trace AR 10/6 BP 120/78 Hr while active up to 110. active walks 4 miles a day and bikes outside. Diet is good. No complaints at this time He denies chest pain, shortness of breath, orthopnea, cough, edema, palpitations, PND, lightheadedness or syncope. PAST MEDICAL HISTORY 2005: A-fib ([facility]) Comment: Loaded with Dofetilide 07/19/13 (self converted to sinus rhythm after first dose) 06/2021: 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 (HCC) Comment: s/p CABG x3, PECK to LAD, SVG to PDA, left radial artery to obtuse marginal No date: HTN (hypertension) No date: Hyperlipidemia No date: Nonexudative senile macular degeneration of retina No date: Pseudophakia Comment: os 06/2021: S/P AVR Comment: s/p AVR #25 inspiris valve 06/2021: S/P left atrial appendage ligation Comment: with bypass surgery 06/2021: S/P Maze operation for atrial fibrillation Comment: s/p maze with cryo with bypass surgery 06/2021: S/P tricuspid valve repair Comment: annuloplasty band PAST SURGICAL HISTORY 07/08/2006: AFIB ABLATION/PULM VEIN ISOLATION Comment: Chanel No date: APPENDECTOMY Comment: age 9 12/09/2013: ATRIAL FIBRILLATION/FLUTTER ABLATION 07/07/2021: AVR W/AORTIC ANNULUS ENLARGEMENT 11/02/13, 12/01/2014: CARDIOVERSION 10/06/2013: PAST SURGICAL HISTORY OF Comment: trigger finger release 07/08/2004: REMOVAL SKIN LESION 0.6-1.0 CM Comment: head No date: REMV CATARACT EXTRACAP,INSERT LENS; Left 07/08/2006: JEREMY (TRANSESOPHAGEAL ECHO) 07/08/1957: TONSILLECTOMY AND ADENOIDECTOMY SOCIAL HISTORY Social History Tobacco Use Smoking status: Never Smokeless tobacco: Never Substance Use Topics Alcohol use: Yes Comment: rare beer after mowing lawn in summer Drug use: No FAMILY HISTORY Problem Relation Age of Onset Cancer Father Stroke Mother Coronary Artery Disease Sister GI Sister Hypertension Sister Stroke Paternal Grandmother No Ocular Disease Other ALLERGIES: ALLERGIES Allergen Reactions Deconamine [Chlorph* Unknown Niaspan [Niacin] Unknown Pseudoephedrine Unknown Other Reaction(s): Urinary Retention Sulfamethoxazole-Tr* Unknown MEDICATIONS: aspirin, enteric coated (ADULT LOW DOSE ASPIRIN) 81 mg EC tablet Take 1 tablet by mouth every other day. ferrous sulfate (IRON ORAL) Take by mouth. tamsulosin HCl (FLOMAX ORAL) Take 0.4 mg by mouth once daily. CALCIUM CARBONATE/VITAMIN D3 (VITAMIN D-3 ORAL) Take 2,000 Units by mouth twice daily. montelukast 10 mg tablet Take 10 mg by mouth daily at bedtime. MULTIVIT ANDMINERALS/FERROUS FUM (MULTI VITAMIN ORAL) Take by mouth once daily. Golden Eagle-3 Fatty Acids-Vitamin E 1,000 mg cap Take 1 capsule by mouth twice daily. apixaban (ELIQUIS) 5 mg tab(s) Take 1 tablet by mouth two times a day. bisoprolol (ZEBETA) 10 mg tablet Take 2 tablets by mouth once daily. rosuvastatin (CRESTOR) 10 mg tablet Take 1 tablet by mouth once daily. prednisoLONE acetate (PRED FORTE) 1 % ophthalmic suspension USE DIRECTED BY PHYSICIAN, IN OPERATIVE EYE, BEGINNING ONE DAY AFTER SURGERY keTORolac (ACULAR) 0.5 % ophthalmic solution USE DIRECTED BY PHYSICIAN, IN OPERATIVE EYE, BEGINNING ONE DAY AFTER SURGERY CARDIOVASCULAR MEDICINE TESTING: Echo 03/04/2024 8:19 AM - [facility] In Impression CONCLUSIONS: - Exam indication: Routine surveillance of moderate or severe valvular regurgitation (>1yr) - The left ventricle is normal in size. There is mild concentric left ventricular hypertrophy. Left ventricular systolic function is mildly decreased. EF = 52 ? 5% (2D biplane) - The ri (more content not included)... [facility] 01-29-2024 Telephone encounter Note Pt has a Stress ECHO coming up on Saturday His friend has tested + for covid and he was with him two days ago On Saturday this week he was helping this friend cut trees they were rather distanced (he was on the ground and the friend was driving the tractor) plus they were outside He is completely asymptomatic feels fine, walking his usual 4 miles a day No fevers (97.6 F orally ) No chills, no SOB/CP, LH, headaches runny nose, sore throat or ear issues, no coughing, wheezing, no abd pains, body pains, no n/v/d or otherwise feeling bad in any way He has tested NEGATIVE for Covid himself today Pt planned to retest himself this weekend and if still negative pt is asking if he can proceed to the ECHO on Saturday Advised: YES Informed as long as he is not having sx of illness and not testing + for covid he may proceed He could always wear a mast to be precautious if he chooses but not required He verbalized an understanding Told him I'd inform Dr. Goldberg's nurses and if anybody has additional (or differing) input they'd reach out to him Otherwise - he will proceed to ECHO as scheduled barring any issues or illness [facility] 01-29-2024 Miscellaneous Notes Pt has a Stress ECHO coming up on Saturday His friend has tested + for covid and he was with him two days ago On Saturday this week he was helping this friend cut trees they were rather distanced (he was on the ground and the friend was driving the tractor) plus they were outside He is completely asymptomatic feels fine, walking his usual 4 miles a day No fevers (97.6 F orally ) No chills, no SOB/CP, LH, headaches runny nose, sore throat or ear issues, no coughing, wheezing, no abd pains, body pains, no n/v/d or otherwise feeling bad in any way He has tested NEGATIVE for Covid himself today Pt planned to retest himself this weekend and if still negative pt is asking if he can proceed to the ECHO on Saturday Advised: YES Informed as long as he is not having sx of illness and not testing + for covid he may proceed He could always wear a mast to be precautious if he chooses but not required He verbalized an understanding Told him I'd inform Dr. Goldberg's nurses and if anybody has additional (or differing) input they'd reach out to him Otherwise - he will proceed to ECHO as scheduled barring any issues or illness documented in this encounter [facility] 11-15-2023 Note HNO ID: [id number] Author: KILEY [employer] Service: ? Author Type: Chore Tender Type: Progress Notes Filed: 11/15/2023 14:01 Note Text: CONFIRM AIM PLANO RIGHT EYE. ABHISHEK Rocha [facility] 11-15-2023 Note Date of Procedure 11/15/2023. Chore Tender Information ABHISHEK Rocha . Notes Measurements only - see Procedure Record under Scanned Documents for signed results. [facility] 11-15-2023 History of Present illness Narrative CONFIRM AIM [employer]O RIGHT EYE. ABHISHEK Rocha documented in this encounter [facility] 11-15-2023 History and physical note Images from the original note were not included. HISTORY AND PHYSICAL EXAMINATION SERVICE DATE: 11/15/2023 SERVICE TIME: 12:44 PM PRIMARY CARE PHYSICIAN: Austen Ontiveros MD, MD REASON FOR VISIT: Britta Torres is a 78 year old male who is scheduled for Right - PHACOEMULSIFICATION CATARACT IMPLANT INTRAOCULAR LENS W/O ENDOSCOPIC CYCLOPHOTOCOAGULATION Right - OPHTHALMIC BIOMETRY BY PARTIAL COHERENCE INTERFEROMETRY W/INTRAOCULAR LENS POWER CALCULATION at the request of Dr. Marisol Senior V for consultation. My final recommendation will be communicated back to the requesting physician by way of shared medical record or letter. Assessment Patient has the following medical conditions which may affect magali-operative course: History of cardioversion Continues to be in rate controlled A-fib Permanent atrial fibrillation (HCC) History of A-fib, rate controlled On eliquis History of Cardioversion and Ablation Follows with Dr. 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 Goldberg Aortic valve stenosis History: Echo with severe and trace AR. Assessment: 06/19/2021: AVR (#25 Inspiris) Plan: Daily ASA Follows with Dr. Goldberg HTN (hypertension) Stable on medication Today 142/66 To take medication morning of surgery Iron deficiency anemia, unspecified Stable on iron supplement Hemoglobin (g/dL) Date Value 01/18/2022 12.9 07/05/2021 10.1 Hematocrit (%) Date Value 01/18/2022 41.2 07/05/2021 32.2 WBC (k/uL) Date Value 01/18/2022 4.66 07/05/2021 7.13 Pulmonary hypertension Stable. Follows cardiology, Dr. Goldberg, Compliant on medications. Appears euvolemic, denies new or worsening cardiac symptoms. Ejection Fraction - Result: 56 % Date: 01/18/2022 Time: 07:57:34 [place]imm Activity Status Index: METS: Walk indoors, such as around the house (1.75 METs) Do light work around the house, such as dusting or washing dishes (2.70 METs) Take care of self; that is eating, dressing, bathing, using the toilet (2.75 METs) Walk a block or two on level ground (2.75 METs) Do moderate work around the house, such as vacuuming, sweeping floors, or carrying in groceries (3.50 METs) Do yardwork, such as raking leaves, weeding, or pushing a power mower (4.50 METs) Climb a flight of stairs or walk up a hill (5.50 METs) Participate in moderate recreational activites, such as golf, bowling, dancing, doubles tennis, or throwing a baseball or football (6.00 METs) Participate in strenuous sport, such as swimming, singles tennis, football, basketball, or skiing (7.50 METs) DASI Score: 36.95 Patient confirms chest pain or undue shortness of breath with the above physical activity. Patient is totally dependent. Clinical Frailty Scale: 3. Well, with treated comorbid disease STOP-Bang Score: Has or is being treated for high blood pressure Patient over 50 years old Male patient Denies snoring loudly Denies feeling tired, fatigued, or sleepy during the daytime Has not been observed to stop breathing or choking/gasping during sleep BMI less than or equal to 35 kg/m^2 Does not have a large neck STOP-Bang Score: 3 [id number] Score: Age: >=75 Sex: male CHF history: Yes Hypertension history: Yes Stroke/TIA/thromboembolism history: No Vascular disease history: Yes Diabetes history: No [id number] Score: 5 ARISCAT Score: Age: 51-80 Preoperative SpO2: >=96% Respiratory infection in the last month: No Preoperative anemia: Yes Surgical incision: peripheral Duration of surgery: <2 hrs Emergency procedure: No ARISCAT Score: 14 ANESTHESIA FINDINGS: Intubation History: No history of difficult intubation. No abnormal airway history Significant Anesthesia Considerations: none Airway History: No history of difficult airway No abnormal airway history I - PHYSICAL EVALUATION AIRWAY Patient intubated: No. Tracheostomy tube not present Mallampati: II. TM distance: >3 FB. Neck ROM: full ROM without neurological symptoms. Mouth opening: adequate. Short neck: no. Thick neck: no Avina present: no Lip Bite Test: II Microretrognathia/Micronagthia/Rece ssed Chin: No DENTAL Dental findings: teeth intact. Dentures, upper: complete. Dentures, lower: complete. II - ANESTHESIA PLAN Anesthetic plan additional comments: *PACC/TCI - anesthesia choice. Beta Beth Monitoring Plan Post Procedure Analgesic Plan Prepared for surgery: This patient is optimally prepared for surgery. CONSULTS: Patient does not require consults for optimization at this time. The Following Tests/Procedures Have Been Initiated: Labs not indicated per PACC protocol, EKG not indicated per PACC protocol Planned Anesthetic: Per anesthesia choice Subjective CHIEF COMPLAINT: Right eye change of vision HPI: 78 year old male with right eye change of vision that has been ongoing for > 1 year. Patient states that he has lurred Vision,decreased vision,difficulty with driving,difficulty with reading,floaters , No alleviating factors. 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 ([facility]) 06/2021 s/p CABG x3, PECK to LAD, SVG to PDA, left radial artery to obtuse marginal HTN (hypertension) Hyperlipidemia Nonexudative senile macular degeneration of retina Pseudophakia os S/P AVR 06/2021 s/p AVR #25 inspiris valve S/P left atrial appendage ligation 06/2021 with bypass surgery S/P Maze operation for atrial fibrillation 06/2021 s/p maze with cryo with bypass surgery S/P tricuspid valve repair 06/2021 annuloplasty band PAST SURGICAL HISTORY Procedure Laterality Date AFIB ABLATION/PULM VEIN ISOLATION 07/08/2006 Chanel APPENDECTOMY age 9 ATRIAL FIBRILLATION/FLUTTER ABLATION 12/09/2013 AVR W/AORTIC ANNULUS ENLARGEMENT 07/07/2021 CARDIOVERSION 11/02/13, 12/01/2014 PAST SURGICAL HISTORY OF 10/06/2013 trigger finger release REMOVAL SKIN LESION 0.6-1.0 CM 07/08/2004 head REMV CATARACT EXTRACAP,INSERT LENS Left JEREMY (TRANSESOPHAGEAL ECHO) 07/08/2006 TONSILLECTOMY & ADENOIDECTOMY FAMILY HISTORY Problem Relation Age of Onset Cancer Father Stroke Mother Coronary Artery Disease Sister GI Sister Hypertension Sister Stroke Paternal Grandmother No Ocular Disease Other SOCIAL HISTORY: Social History Tobacco Use Smoking status: Never Smokeless tobacco: Never Substance Use Topics Alcohol use: Yes Comment: rare beer after mowing lawn in summer Drug use: No Prior to Admission medications as of 11/15/23 1250 Medication Sig Last Dose Taking aspirin, enteric coated (ADULT LOW DOSE ASPIRIN) 81 mg EC tablet Take 1 tablet by mouth every other day. Taking Yes apixaban (ELIQUIS) 5 mg tab(s) Take 1 tablet by mouth twice daily. Taking Yes bisoprolol (ZEBETA) 10 mg tablet Take 2 tablets by mouth once daily. Taking Yes rosuvastatin (CRESTOR) 10 mg tablet Take 1 tablet by mouth once daily. Taking Yes ferrous sulfate (IRON ORAL) Take by mouth. Taking Yes tamsulosin HCl (FLOMAX ORAL) Take 0.4 mg by mouth once daily. Taking Yes CALCIUM CARBONATE/VITAMIN D3 (VITAMIN D-3 ORAL) Take 2,000 Units by mouth twice daily. Taking Yes montelukast 10 mg tablet Take 10 mg by mouth daily at bedtime. Taking Yes MULTIVIT &MINERALS/FERROUS FUM (MULTI VITAMIN ORAL) Take by mouth once daily. Taking Yes Golden Eagle-3 Fatty Acids-Vitamin E 1,000 mg cap Take 1 capsule by mouth twice daily. Taking Yes No medication comments found. ALLERGIES Allergen Reactions Deconamine [Chlorph* Unknown Niaspan [Niacin] Unknown Pseudoephedrine Unknown Other Reaction(s): Urinary Retention Sulfamethoxazole-Tr* Unknown Covid Immunization Dates Overdue - Covid-19 Vaccine ( season) Overdue since 03/08/2023 05/01/2022 Imm Admin: COVID-19 vaccine, age 12+ yr, bivalent (MODERNA) 05/05/2021 Imm Admin: COVID-19 original vaccine, full dose, monovalent (MODERNA) 09/09/2020 Outside Immunization: COVID-19 (MODERNA), MRNA, LNP-S, PF, 100 MCG/0.5 ML DOSE 08/12/2020 Outside Immunization: COVID-19 (MODERNA), MRNA, LNP-S, PF, 100 MCG/0.5 ML DOSE REVIEW OF SYSTEMS: PAIN ASSESSMENT: General: No weight loss, malaise or fevers. Neuro: No history of TIA's, stroke, [employer] tumor, impaired sensorium, hemiplegia, paraplegia or quadraplegia. No neurological symptoms or problems. Respiratory: No history of current cough or dyspnea, or pneumonia in the past 6 weeks. No history of respiratory/pulmonary symptoms or problems. Cardiovascular: Positive for: HLD, Hypertension +CAD s/p CABG, AVR, TVR 06/2021 PVI x 2 +Peristant A-fib rate controlled on Eliquis GI: No history of GI symptoms or problems. No history of esophageal varices, recent ascites, or ETOH greater than 2 drinks per day. : No history of dysuria, frequency or incontinence,, stones or chronic kidney disease, No difficulty urinating, nocturia > 1 time per night or hematuria Endocrine: No history of diabetes. Has not taken steroids within the past 30 days. No history of endocrinological symptoms or problems. Hematology: Chronic anti-coagulation / platelet meds (Aspirin, Eliquis) Oncology: No history of CA metastasis, chemo within 30 days, or radiotherapy within 90 days. Has not lost 10% of body wt in 6 months. No history of oncological symptoms or problems. Psych: No history of psychiatric symptoms or problems. Musculoskeletal: Negative for joint pain or swelling, back pain or muscle pain. Skin: Negative for lesions, rash and itching. Objective PHYSICAL EXAM: VITALS: BP 142/66 Pulse 66 Temp (Src) 97.3 (Temporal) Resp 16 Ht 6' 1 (1.85m) Wt 180 lb 12.4 oz (82.0kg) SpO2 99% BMI 23.86 kg/(m^2). General: Alert and oriented, No acute distress, Healthy appearance Skin: Normal color, no rash, no lesions. Cardiovascular: Normal S1 & S2, no rubs, murmurs or gallops. No JVD. Pulse regular. Lungs: Normal breath sounds, no wheezes or crackles. Abdomen: Soft, non-tender, no rigidity., Positive bowel sounds Extremities: No deformity, no edema or tenderness, no joint swelling or clubbing. Neurological: Normal cognition and motor skills. Gait normal. No weakness or sensory deficit. Diagnostic tests reviewed for today's visit: Recent Results (from the past 8760 hour(s)) ECG COMPLETE Collection Time: 06/07/23 8:41 AM Result Value Ventricular Rate 86 QRS Duration 144 QT Interval 382 QTC Calculation (Bazett) 457 Calculated R Belt 58 Calculated T Belt 35 Impression ATRIAL FIBRILLATION COMPLETE RIGHT BUNDLE BRANCH BLOCK ABNORMAL ECG Confirmed by JULIO AVILES MD ([id number]) on 06/11/2023 7:02:50 PM 01/18/2022 9:44 AM - Cchs, Sdynamics Oru In Impression CONCLUSIONS: - Exam indication: S/P CABG, AVR, TVr, MAZE & LAAC - The left ventricle is normal in size. Left ventricular systolic function is normal. EF = 56 5% (2D biplane) Left ventricular diastolic function was not evaluated due to AF. - The right ventricle is dilated. Right ventricular systolic function is moderately decreased. - The left atrial cavity is severely dilated. - The right atrial cavity is severely dilated. - Post tricuspid valve repair. Hnaks MC3 Tricuspid Ring (size #32). There is mild (1+) tricuspid valve regurgitation. The peak gradient is 5 mmHg and the mean gradient is 2 mmHg. - Inspiris prosthetic aortic valve (size #25). There is no aortic valve regurgitation. The peak gradient is 6 mmHg, the mean gradient is 3 mmHg and the dimensionless valve index is 0.62. Prior AV pk/mn gradients 12/6 mmHg. - Exam was compared with the prior CC echocardiographic exam performed on 06/29/2021 similar EF ; estimated PAP is similar to pre surgery echo Lab Value Units Date High Low ABORHD No results within date range. ABSCREEN No results within date range. Hemoglobin A1C (%) Date Value 12/08/2013 5.8 No new labs or tests Instructions Given to Patient: Instructions located in the after visit summary. Patient given verbal and written preop instructions and voices comprehension and compliance. SIGNATURE: Monse Barba APRN.CNP PATIENT NAME: Britta Torres DATE: 11/15/2023 TIME: 12:54 PM [facility] 11-15-2023 History and physical note Images from the original note were not included. HISTORY AND PHYSICAL EXAMINATION SERVICE DATE: 11/15/2023 SERVICE TIME: 12:44 PM PRIMARY CARE PHYSICIAN: Austen Ontiveros MD, MD REASON FOR VISIT: Britta Torres is a 78 year old male who is scheduled for Right - PHACOEMULSIFICATION CATARACT IMPLANT INTRAOCULAR LENS W/O ENDOSCOPIC CYCLOPHOTOCOAGULATION Right - OPHTHALMIC BIOMETRY BY PARTIAL COHERENCE INTERFEROMETRY W/INTRAOCULAR LENS POWER CALCULATION at the request of Dr. Marisol Senior V for consultation. My final recommendation will be communicated back to the requesting physician by way of shared medical record or letter. Assessment Patient has the following medical conditions which may affect magali-operative course: History of cardioversion Continues to be in rate controlled A-fib Permanent atrial fibrillation (HCC) History of A-fib, rate controlled On eliquis History of Cardioversion and Ablation Follows with Dr. 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 Goldberg Aortic valve stenosis History: Echo with severe and trace AR. Assessment: 06/19/2021: AVR (#25 Inspiris) Plan: Daily ASA Follows with Dr. Goldberg HTN (hypertension) Stable on medication Today 142/66 To take medication morning of surgery Iron deficiency anemia, unspecified Stable on iron supplement Hemoglobin (g/dL) Date Value 01/18/2022 12.9 07/05/2021 10.1 Hematocrit (%) Date Value 01/18/2022 41.2 07/05/2021 32.2 WBC (k/uL) Date Value 01/18/2022 4.66 07/05/2021 7.13 Pulmonary hypertension Stable. Follows cardiology, Dr. Goldberg, Compliant on medications. Appears euvolemic, denies new or worsening cardiac symptoms. Ejection Fraction - Result: 56 % Date: 01/18/2022 Time: 07:57:34 Grimm Activity Status Index: METS: Walk indoors, such as around the house (1.75 METs) Do light work around the house, such as dusting or washing dishes (2.70 METs) Take care of self; that is eating, dressing, bathing, using the toilet (2.75 METs) Walk a block or two on level ground (2.75 METs) Do moderate work around the house, such as vacuuming, sweeping floors, or carrying in groceries (3.50 METs) Do yardwork, such as raking leaves, weeding, or pushing a power mower (4.50 METs) Climb a flight of stairs or walk up a hill (5.50 METs) Participate in moderate recreational activites, such as golf, bowling, dancing, doubles tennis, or throwing a baseball or football (6.00 METs) Participate in strenuous sport, such as swimming, singles tennis, football, basketball, or skiing (7.50 METs) DASI Score: 36.95 Patient confirms chest pain or undue shortness of breath with the above physical activity. Patient is totally dependent. Clinical Frailty Scale: 3. Well, with treated comorbid disease STOP-Bang Score: Has or is being treated for high blood pressure Patient over 50 years old Male patient Denies snoring loudly Denies feeling tired, fatigued, or sleepy during the daytime Has not been observed to stop breathing or choking/gasping during sleep BMI less than or equal to 35 kg/m^2 Does not have a large neck STOP-Bang Score: 3 [id number] Score: Age: >=75 Sex: male CHF history: Yes Hypertension history: Yes Stroke/TIA/thromboembolism history: No Vascular disease history: Yes Diabetes history: No [id number] Score: 5 ARISCAT Score: Age: 51-80 Preoperative SpO2: >=96% Respiratory infection in the last month: No Preoperative anemia: Yes Surgical incision: peripheral Duration of surgery: <2 hrs Emergency procedure: No ARISCAT Score: 14 ANESTHESIA FINDINGS: Intubation History: No history of difficult intubation. No abnormal airway history Significant Anesthesia Considerations: none Airway History: No history of difficult airway No abnormal airway history I - PHYSICAL EVALUATION AIRWAY Patient intubated: No. Tracheostomy tube not present Mallampati: II. TM distance: >3 FB. Neck ROM: full ROM without neurological symptoms. Mouth opening: adequate. Short neck: no. Thick neck: no Avina present: no Lip Bite Test: II Microretrognathia/Micronagthia/Rece ssed Chin: No DENTAL Dental findings: teeth intact. Dentures, upper: complete. Dentures, lower: complete. II - ANESTHESIA PLAN Anesthetic plan additional comments: *PACC/TCI - anesthesia choice. Beta Beth Monitoring Plan Post Procedure Analgesic Plan Prepared for surgery: This patient is optimally prepared for surgery. CONSULTS: Patient does not require consults for optimization at this time. The Following Tests/Procedures Have Been Initiated: Labs not indicated per PACC protocol, EKG not indicated per PACC protocol Planned Anesthetic: Per anesthesia choice Subjective CHIEF COMPLAINT: Right eye change of vision HPI: 78 year old male with right eye change of vision that has been ongoing for > 1 year. Patient states that he has lurred Vision,decreased vision,difficulty with driving,difficulty with reading,floaters , No alleviating factors. 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 ([facility]) 06/2021 s/p CABG x3, PECK to LAD, SVG to PDA, left radial artery to obtuse marginal HTN (hypertension) Hyperlipidemia Nonexudative senile macular degeneration of retina Pseudophakia os S/P AVR 06/2021 s/p AVR #25 inspiris valve S/P left atrial appendage ligation 06/2021 with bypass surgery S/P Maze operation for atrial fibrillation 06/2021 s/p maze with cryo with bypass surgery S/P tricuspid valve repair 06/2021 annuloplasty band PAST SURGICAL HISTORY Procedure Laterality Date AFIB ABLATION/PULM VEIN ISOLATION 07/08/2006 Chanel APPENDECTOMY age 9 ATRIAL FIBRILLATION/FLUTTER ABLATION 12/09/2013 AVR W/AORTIC ANNULUS ENLARGEMENT 07/07/2021 CARDIOVERSION 11/02/13, 12/01/2014 PAST SURGICAL HISTORY OF 10/06/2013 trigger finger release REMOVAL SKIN LESION 0.6-1.0 CM 07/08/2004 head REMV CATARACT EXTRACAP,INSERT LENS Left JEREMY (TRANSESOPHAGEAL ECHO) 07/08/2006 TONSILLECTOMY & ADENOIDECTOMY <AGE 12 07/08/1957 FAMILY HISTORY Problem Relation Age of Onset Cancer Father Stroke Mother Coronary Artery Disease Sister GI Sister Hypertension Sister Stroke Paternal Grandmother No Ocular Disease Other SOCIAL HISTORY: Social History Tobacco Use Smoking status: Never Smokeless tobacco: Never Substance Use Topics Alcohol use: Yes Comment: rare beer after mowing lawn in summer Drug use: No Prior to Admission medications as of 11/15/23 1250 Medication Sig Last Dose Taking aspirin, enteric coated (ADULT LOW DOSE ASPIRIN) 81 mg EC tablet Take 1 tablet by mouth every other day. Taking Yes apixaban (ELIQUIS) 5 mg tab(s) Take 1 tablet by mouth twice daily. Taking Yes bisoprolol (ZEBETA) 10 mg tablet Take 2 tablets by mouth once daily. Taking Yes rosuvastatin (CRESTOR) 10 mg tablet Take 1 tablet by mouth once daily. Taking Yes ferrous sulfate (IRON ORAL) Take by mouth. Taking Yes tamsulosin HCl (FLOMAX ORAL) Take 0.4 mg by mouth once daily. Taking Yes CALCIUM CARBONATE/VITAMIN D3 (VITAMIN D-3 ORAL) Take 2,000 Units by mouth twice daily. Taking Yes montelukast 10 mg tablet Take 10 mg by mouth daily at bedtime. Taking Yes MULTIVIT &MINERALS/FERROUS FUM (MULTI VITAMIN ORAL) Take by mouth once daily. Taking Yes Golden Eagle-3 Fatty Acids-Vitamin E 1,000 mg cap Take 1 capsule by mouth twice daily. Taking Yes No medication comments found. ALLERGIES Allergen Reactions Deconamine [Chlorph* Unknown Niaspan [Niacin] Unknown Pseudoephedrine Unknown Other Reaction(s): Urinary Retention Sulfamethoxazole-Tr* Unknown Covid Immunization Dates Overdue - Covid-19 Vaccine ( season) Overdue since 03/08/2023 05/01/2022 Imm Admin: COVID-19 vaccine, age 12+ yr, bivalent (MODERNA) 05/05/2021 Imm Admin: COVID-19 original vaccine, full dose, monovalent (MODERNA) 09/09/2020 Outside Immunization: COVID-19 (MODERNA), MRNA, LNP-S, PF, 100 MCG/0.5 ML DOSE 08/12/2020 Outside Immunization: COVID-19 (MODERNA), MRNA, LNP-S, PF, 100 MCG/0.5 ML DOSE REVIEW OF SYSTEMS: PAIN ASSESSMENT: General: No weight loss, malaise or fevers. Neuro: No history of TIA's, stroke, [employer] tumor, impaired sensorium, hemiplegia, paraplegia or quadraplegia. No neurological symptoms or problems. Respiratory: No history of current cough or dyspnea, or pneumonia in the past 6 weeks. No history of respiratory/pulmonary symptoms or problems. Cardiovascular: Positive for: HLD, Hypertension +CAD s/p CABG, AVR, TVR 06/2021 PVI x 2 +Peristant A-fib rate controlled on Eliquis GI: No history of GI symptoms or problems. No history of esophageal varices, recent ascites, or ETOH greater than 2 drinks per day. : No history of dysuria, frequency or incontinence,, stones or chronic kidney disease, No difficulty urinating, nocturia > 1 time per night or hematuria Endocrine: No history of diabetes. Has not taken steroids within the past 30 days. No history of endocrinological symptoms or problems. Hematology: Chronic anti-coagulation / platelet meds (Aspirin, Eliquis) Oncology: No history of CA metastasis, chemo within 30 days, or radiotherapy within 90 days. Has not lost 10% of body wt in 6 months. No history of oncological symptoms or problems. Psych: No history of psychiatric symptoms or problems. Musculoskeletal: Negative for joint pain or swelling, back pain or muscle pain. Skin: Negative for lesions, rash and itching. Objective PHYSICAL EXAM: VITALS: BP 142/66 Pulse 66 Temp (Src) 97.3 (Temporal) Resp 16 Ht 6' 1 (1.85m) Wt 180 lb 12.4 oz (82.0kg) SpO2 99% BMI 23.86 kg/(m^2). General: Alert and oriented, No acute distress, Healthy appearance Skin: Normal color, no rash, no lesions. Cardiovascular: Normal S1 & S2, no rubs, murmurs or gallops. No JVD. Pulse regular. Lungs: Normal breath sounds, no wheezes or crackles. Abdomen: Soft, non-tender, no rigidity., Positive bowel sounds Extremities: No deformity, no edema or tenderness, no joint swelling or clubbing. Neurological: Normal cognition and motor skills. Gait normal. No weakness or sensory deficit. Diagnostic tests reviewed for today's visit: Recent Results (from the past 8760 hour(s)) ECG COMPLETE Collection Time: 06/07/23 8:41 AM Result Value Ventricular Rate 86 QRS Duration 144 QT Interval 382 QTC Calculation (Bazett) 457 Calculated R Belt 58 Calculated T Belt 35 Impression ATRIAL FIBRILLATION COMPLETE RIGHT BUNDLE BRANCH BLOCK ABNORMAL ECG Confirmed by JULIO AVILES MD ([id number]) on 06/11/2023 7:02:50 PM 01/18/2022 9:44 AM - Cchs, Sdynamics Oru In Impression CONCLUSIONS: - Exam indication: S/P CABG, AVR, TVr, MAZE & LAAC - The left ventricle is normal in size. Left ventricular systolic function is normal. EF = 56 5% (2D biplane) Left ventricular diastolic function was not evaluated due to AF. - The right ventricle is dilated. Right ventricular systolic function is moderately decreased. - The left atrial cavity is severely dilated. - The right atrial cavity is severely dilated. - Post tricuspid valve repair. Hanks MC3 Tricuspid Ring (size #32). There is mild (1+) tricuspid valve regurgitation. The peak gradient is 5 mmHg and the mean gradient is 2 mmHg. - Inspiris prosthetic aortic valve (size #25). There is no aortic valve regurgitation. The peak gradient is 6 mmHg, the mean gradient is 3 mmHg and the dimensionless valve index is 0.62. Prior AV pk/mn gradients 12/6 mmHg. - Exam was compared with the prior CC echocardiographic exam performed on 06/29/2021 similar EF ; estimated PAP is similar to pre surgery echo Lab Value Units Date High Low ABORHD No results within date range. ABSCREEN No results within date range. Hemoglobin A1C (%) Date Value 12/08/2013 5.8 No new labs or tests Instructions Given to Patient: Instructions located in the after visit summary. Patient given verbal and written preop instructions and voices comprehension and compliance. SIGNATURE: Monse Barba APRN.CNP PATIENT NAME: Britta Torres DATE: 11/15/2023 TIME: 12:54 PM documented in this encounter [facility] 11-15-2023 Instructions Monse Barba APRN.CNP - 11/15/2023 12:50 PM EDT PATIENT PREOPERATIVE INSTRUCTIONS Marisol Senior V, MD has scheduled you for your procedure at this surgery center: [facility]: [phone] --[address] [facility] [facility] [address]. Please read below carefully for your personalized instructions. Arrival Time for Surgery: - The Surgery Center or hospital where you are having surgery will call the afternoon before surgery (or Saturday for Saturday surgery) with a scheduled arrival time. - If you have not heard by 4 pm, please contact the surgery center above. Please be aware that emergency situations arise, which may delay or change your surgical time. If this happens, we will notify you as soon as possible and regret any inconvenience Dietary Restrictions: - No solid food after midnight. - You may have 12 ounces of clear liquids (water, clear juices such as apple juice or gatorade, carbonated beverages, clear tea, black coffee, jello) until 2 hours before scheduled arrival at facility. - no milk / coffee creamer - no pulp juices Medications: Unless instructed differently below, stay on all of your medications until your surgery. Approved medications to take the morning of surgery with a sip of water: Bisoprolol If you start any new medications after today's visit, please contact the surgeon's office. Blood Thinning Medications: You do not need to hold blood thinners for cataract surgery Important Reminders: - If you are prescribed inhalers for breathing, continue using them. - Candy, mints, and tobacco products are NOT permitted the morning of surgery. - Hearing aids, dentures and glasses may be worn the morning of surgery. - NO jewelry, body piercings, makeup, hairpins or contacts are to be worn the day of surgery. If you develop symptoms such as a fever, cold, or flu, or have other changes to your health within TWO DAYS of scheduled surgery or the morning of surgery, please contact the surgery center above. Personal Belongings: -Please have photo ID and insurance cards. -If you do not have a copy of advance directives on file with us, please bring a copy with you on the day of surgery. - Leave ALL valuables and money at home or with family members. For Outpatient Procedures: - YOU MUST HAVE A RESPONSIBLE HARVEST MANAGER TAKE YOU HOME. A CANAL BOAT OPERATOR OR MANAGER MOBILE CANNOT BE MADE A RESPONSIBLE HARVEST MANAGER. - We recommend that a responsible person stays with you overnight to take care of you. - You cannot stay in a hotel alone after outpatient surgery. You will not be permitted to have your surgery, if you do not have someone to take care of you. If you already have an Advance Directive, please fax a copy to [phone] or email to for it to be added to your chart. If you do not have an Advance Directive, you can find the appropriate form and more information at [email or web address]. We recommend that you complete the Advance Directive form found on the website and bring it with you the day of your surgery. It can be witnessed and scanned into your chart that day. Monse Barba APRN.DIRECTOR TREASURER documented in this encounter [facility] 09-05-2023 Miscellaneous Notes Received lab results from [facility]. Already scanned into chart but will give to in office to review. documented in this encounter [facility] 09-03-2023 Miscellaneous Notes Addended by: LIBIA HERNÁNDEZ on: 09/03/2023 03:38 PM Modules accepted: Orders documented in this encounter [facility] 09-03-2023 Instructions Marisol Senior V, MD - 09/03/2023 3:27 PM EST YAG LASER POSTERIOR CAPSULOTOMY Cataract surgery is a commonly performed procedure to remove a clouded human lens and replace it with a clear lens implant known as an intra-ocular lens. During this surgery, after the clouded lens is removed, a thin portion of the lens called the capsule is left in place. This membrane, which is similar in consistency to a sandwich bag, is left in place in order to give additional support for the lens implant. Over time, this clear membrane may become cloudy or hazy, similar to a cataract, before it was removed. If this occurs, images may become blurred again or glare may be created in the vision. Common complaints when this happens are decreased vision, increased glare, or an increase in the amount of light needed to read. Although this condition will not harm the health of the eye if left untreated, it can prove to be a nuisance. Not all patients will develop a clouded capsule, but if this occurs, the problem can be corrected with a simple, non-invasive procedure known as a YAG laser capsulotomy. If you elect to have this procedure, dilating drops are given to open the pupil. You will be asked to sit in a machine similar to the one that is used to check you eye pressure in an eye exam. The doctor then shines a red, aiming laser beam that can be seen by our eyes. The invisible laser light would then be activated to make a small opening in the cloudy capsule to restore a clear image to the retina. While this is being performed, the doctor will instruct you where to look and when to blink. You will hear a series of clicks when the doctor is performing the laser procedure. You should not feel any discomfort. In most cases, if the health of the eye is normal, you should see an improvement in your vision within 24 hours. Immediately afterward, you will be blurry until the dilating drops wear off, so we recommend you come with a fence post driver. You will then be scheduled for a follow up in approximately one week. If you notice any of the following symptoms of retinal detachment, please call our office at : - Flashes of light - Increased number of floaters or large floaters - Curtains, veils, or spider web pattern over vision documented in this encounter [facility] 09-03-2023 Note HNO ID: [id number] Author: MARISOL SENIOR MD Service: ? Author Type: Physician Type: Progress Notes Filed: 09/03/2023 15:28 Note Text: The documentation for this note was completed by Glo Harris, COA acting as a scribe for Marisol SENIOR MD. 09/03/2023 2:55 PM. ASSESSMENT / PLAN: 1. Combined cataract, right eye - Offered cataract extraction by phacoemulsification and intraocular lens implant with Dr. Nadeen, right eye, right eye first - Aim: [place] - Flomax/alpha-beth? Yes - Toric candidate: No - PanOptix candidate: No - Anesthesia: Topical with MAC - Contact lens use No - History of LASIK/PRK/RK No - Discussed initiate twice daily eyelid scrubs pending U/S biometry and surgery - Comanage with Dr Stallings; [facility] POD #1 Cataract Presurgical Documentation Cataract: Right eye (OD) Current Visual Acuity Right Eye Distance CC 20/20 Left Eye Distance CC 20/100 Best Corrected Vision Right Eye 20/20 Best Corrected Vision Left Eye 20/70 Glare Testing: Right Eye High 20/80 Visual Function: Britta Torres states that the decline in vision from the cataract impedes his abilities as listed in the HPI, as well as other activities of daily living. Britta Torres has confirmed that he is no longer able to function adequately on a day-to-day basis because of his current visual condition. Further, it is my medical opinion that the cataract is the primary cause, or at least a significantly contributory cause of his visual dysfunction. With uncomplicated cataract surgery and lens implantation, it is my expectation that his visual function and quality of life will improve significantly. The risks, benefits, alternatives, personnel and complications of cataract surgery with lens implantation were discussed with Britta Torres in detail. These included, but are not limited to: infection, bleeding, loss of vision, and the need for additional surgery. he appeared to understand and asked that I proceed with plans for surgery. Patient acknowledges possible need for glasses after procedure. Intraocular lens options were discussed with patient. If patient was a good candidate for multifocal Intraocular lenses, risk of halos, glare, and possible need for glasses was discussed. Informed consent form signed by physician and patient. Literature regarding cataract and cataract extraction by phacoemulsification offered. Return for preadmission testing, biometry AND intraocular lens calculations prior to surgery. The patient was offered a surgery/procedure at a [facility] facility. The surgeon/proceduralist and patient have discussed in detail the risk of exposure to and/or potential harm posed by the COVID-19 virus with having a surgery/procedure at this time versus the risk of delaying the surgery/procedure. It is not possible to know either the risk of delaying the surgery or procedure or chance of getting an infection with perfect accuracy, but a joint decision was made between the patient and the surgeon/proceduralist to proceed at this time with the scheduled surgery/procedure as indicated on the consent form. 2. Posterior capsular opacity left eye -YAG capsulotomy left eye today-surgical care only-modifier 54 -Patient educated on posterior capsular opacity following cataract surgery. The risks, benefits, alternatives, personnel, and possible complications related to yttrium aluminum garnet (YAG) capsulotomy discussed with patient. Explained that risks include but are not limited to: increase in intraocular pressure, retinal tears/detachment, dislocation of the intraocular lens, and/or need for further procedures. Patient expresses understanding and elects to proceed with YAG capsulotomy performed by Dr. Senior. Informed consent form signed by physician and patient. Literature regarding signs and symptoms of retinal detachment offered. -The patient was offered a surgery/procedure at a [facility] facility. The surgeon/proceduralist and patient have discussed in detail the risk of exposure to and/or potential harm posed by the COVID-19 virus with having a surgery/procedure at this time versus the risk of delaying the surgery/procedure. It is not possible to know either the risk of delaying the surgery or procedure or chance of getting an infection with perfect accuracy, but a joint decision was made between the patient and the surgeon/proceduralist to proceed at this time with the scheduled surgery/procedure as indicated on the consent form. -F/U 1 week with Chandrakant Petersen) I have confirmed and edited as necessary the relevant HPI, ophthalmic history, ROS, and the neuro exam findings as obtained by others. I have seen and examined Britta Torres. I have discussed the case and the management of this patient's care with the Resident/Fellow, if applicable. I also have reviewed and agree with the assessment and plan as stated above and agree with all of its releva (more content not included)... [facility] 09-03-2023 History of Present illness Narrative The documentation for this note was completed by Glo Harris, COA acting as a scribe for Marisol SENIOR MD. 09/03/2023 2:55 PM. ASSESSMENT / PLAN: 1. Combined cataract, right eye - Offered cataract extraction by phacoemulsification and intraocular lens implant with Dr. Senior, right eye, right eye first - Aim: [place] - Flomax/alpha-beth? Yes - Toric candidate: No - PanOptix candidate: No - Anesthesia: Topical with MAC - Contact lens use No - History of LASIK/PRK/RK No - Discussed initiate twice daily eyelid scrubs pending U/S biometry and surgery - Comanage with Dr Stallings; [facility] POD #1 Cataract Presurgical Documentation Cataract: Right eye (OD) Current Visual Acuity Right Eye Distance CC 20/20 Left Eye Distance CC 20/100 Best Corrected Vision Right Eye 20/20 Best Corrected Vision Left Eye 20/70 Glare Testing: Right Eye High 20/80 Visual Function: Britta Torres states that the decline in vision from the cataract impedes his abilities as listed in the HPI, as well as other activities of daily living. Britta Torres has confirmed that he is no longer able to function adequately on a day-to-day basis because of his current visual condition. Further, it is my medical opinion that the cataract is the primary cause, or at least a significantly contributory cause of his visual dysfunction. With uncomplicated cataract surgery and lens implantation, it is my expectation that his visual function and quality of life will improve significantly. The risks, benefits, alternatives, personnel and complications of cataract surgery with lens implantation were discussed with Britta Torres in detail. These included, but are not limited to: infection, bleeding, loss of vision, and the need for additional surgery. he appeared to understand and asked that I proceed with plans for surgery. Patient acknowledges possible need for glasses after procedure. Intraocular lens options were discussed with patient. If patient was a good candidate for multifocal Intraocular lenses, risk of halos, glare, and possible need for glasses was discussed. Informed consent form signed by physician and patient. Literature regarding cataract and cataract extraction by phacoemulsification offered. Return for preadmission testing, biometry & intraocular lens calculations prior to surgery. The patient was offered a surgery/procedure at a [facility] facility. The surgeon/proceduralist and patient have discussed in detail the risk of exposure to and/or potential harm posed by the COVID-19 virus with having a surgery/procedure at this time versus the risk of delaying the surgery/procedure. It is not possible to know either the risk of delaying the surgery or procedure or chance of getting an infection with perfect accuracy, but a joint decision was made between the patient and the surgeon/proceduralist to proceed at this time with the scheduled surgery/procedure as indicated on the consent form. 2. Posterior capsular opacity left eye -YAG capsulotomy left eye today-surgical care only-modifier 54 -Patient educated on posterior capsular opacity following cataract surgery. The risks, benefits, alternatives, personnel, and possible complications related to yttrium aluminum garnet (YAG) capsulotomy discussed with patient. Explained that risks include but are not limited to: increase in intraocular pressure, retinal tears/detachment, dislocation of the intraocular lens, and/or need for further procedures. Patient expresses understanding and elects to proceed with YAG capsulotomy performed by Dr. Senior. Informed consent form signed by physician and patient. Literature regarding signs and symptoms of retinal detachment offered. -The patient was offered a surgery/procedure at a [facility] facility. The surgeon/proceduralist and patient have discussed in detail the risk of exposure to and/or potential harm posed by the COVID-19 virus with having a surgery/procedure at this time versus the risk of delaying the surgery/procedure. It is not possible to know either the risk of delaying the surgery or procedure or chance of getting an infection with perfect accuracy, but a joint decision was made between the patient and the surgeon/proceduralist to proceed at this time with the scheduled surgery/procedure as indicated on the consent form. -F/U 1 week with Chandrakant Petersen) I have confirmed and edited as necessary the relevant HPI, ophthalmic history, ROS, and the neuro exam findings as obtained by others. I have seen and examined Britta Torres. I have discussed the case and the management of this patient's care with the Resident/Fellow, if applicable. I also have reviewed and agree with the assessment and plan as stated above and agree with all of its relevant components. Marisol SENIOR MD September 03, 2023 2:55 PM ASSESSMENT/PLAN: 1. Left posterior capsular opacification - ICD9: 366.50, ICD10: H26.492 (primary diagnosis) 2. Pseudophakia, left eye - ICD9: V43.1, ICD10: Z96.1 PEcIOL in [place] ~2-3 yrs ago ++Posterior capsular opacity Left eye Yag evaluation with Dr Marisol Senior today 3. Combined forms of 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 - ICD9: 366.19, ICD10: H25.811 Cataract evaluation OD today September 03, 2023 2:48 PM documented in this encounter [facility] 09-03-2023 Note HNO ID: [id number] Author: ERASMO JACKSON, DARIANA Service: ? Author Type: STRUCTURAL TECHNICIAN Type: Progress Notes Filed: 09/03/2023 15:28 Note Text: ASSESSMENT/PLAN: 1. Left posterior capsular opacification - ICD9: 366.50, ICD10: H26.492 (primary diagnosis) 2. Pseudophakia, left eye - ICD9: V43.1, ICD10: Z96.1 PEcIOL in [place] ~2-3 yrs ago ++Posterior capsular opacity Left eye Yag evaluation with Dr Marisol Senior today 3. Combined forms of 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 - ICD9: 366.19, ICD10: H25.811 Cataract evaluation OD today September 03, 2023 2:48 PM [facility] 08-09-2023 Note HNO ID: [id number] Author: EVER GOLDBERG MD Service: ? Author Type: Physician Type: Progress Notes Filed: 08/09/2023 10:03 Note Text: Referring Physician: No referring provider defined for this encounter. Primary Care Physician: Austen Ontiveros MD, MD Britta T Toni is a 78 year old male that [...] V43.3, ICD10: Z95.2 (primary diagnosis) Echo in [facility] Clinically no stenosis - ECHO 2. 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 Golden Eagle-3 Fatty Acids-Vitamin E 1,000 mg cap Take [...] Date Value 01/18/2022 99 Ever Goldberg MD [facility] 08-09-2023 History of Present illness Narrative Referring [...] V43.3, ICD10: Z95.2 (primary diagnosis) Echo in [facility] Clinically no stenosis - ECHO 2. 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 Golden Eagle-3 Fatty Acids-Vitamin E 1,000 mg cap Take [...] Ever Goldberg MD documented in this encounter [facility] 06-07-2023 Instructions Amy Subramanian APRN.DIRECTOR TREASURER - 06/07/2023 9:12 AM EST Please schedule a follow up with Dr. Bagley in one year Let us know if symptoms reoccur and heart rates sustaining greater than 110 documented in this encounter [facility] 06-07-2023 History of Present illness Narrative Images from the original note were not included. [facility] [place] [facility] Department of Cardiovascular Medicine SECTION OF CARDIAC PACING and ELECTROPHYSIOLOGY OUTPATIENT VISIT DATE June 07, 2023 OUTPATIENT VISIT TYPE ESTABLISHED PRIMARY CARE PHYSICIAN: Austen Ontiveros MD [address] [place] [address] CHIEF COMPLAINT: follow up permanent atrial fibrillation HISTORY OF PRESENT ILLNESS: Mr. Torres is a 78 year old male who presents today for followed by Dr. Goldberg, Dr. Bagley for permanent atrial fibrillation (rate control strategy, [id number]: 2%), known CAD (: s/p CABG x3, PECK to LAD, SVG to PDA, left radial artery to the obtuse marginal 1, TV repair with a ring, AVR with austen goffiris valve, left atrial appendage clip, cryo maze), preserved LV systolic heart function (echo: 2021: EF 56%, pulmonary hypertension RVSP 49mmHg, LA severely dilated), Other PMH of hypertension, hyperlipidemia, rn long term care anticoagulation, anemia. 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 Golden Eagle-3 Fatty Acids-Vitamin E 1,000 mg cap Take [...] of permanent atrial fibrillation (rate control strategy, [id number]-[id number]: 2%), known CAD (: s/p CABG x3, PECK to LAD, SVG to PDA, left radial artery to the obtuse marginal 1, TV repair with a ring, AVR with edward inspiris valve, left atrial appendage clip, cryo maze), preserved LV systolic heart function (echo: 2021: EF 56%, pulmonary hypertension RVSP 49mmHg, LA severely dilated), Other PMH of hypertension, hyperlipidemia, rn long term care anticoagulation, h/o anemia, BP high end to [...] with more than 50% of the total [id number]-gh-hyzv time of the visit in counseling / coordination of care. CONTACT INFORMATION: Amy Subramanian APRN.CNP, 06/07/23 [facility] Ben Bagley [facility] Cardiology Second Floor [address] [facility] [place] [address] documented in this encounter [facility] 06-07-2023 Note HNO ID: [id number] Author: Amy Subramanian APRN.CARMEN Service: ? Author Type: Nurse Practitioner Type: Progress Notes Filed: 06/07/2023 9:28 AM Note Text: [facility] [place] [facility] Department of Cardiovascular Medicine SECTION OF CARDIAC PACING and ELECTROPHYSIOLOGY OUTPATIENT VISIT DATE June 07, 2023 OUTPATIENT VISIT TYPE ESTABLISHED PRIMARY CARE PHYSICIAN: Austen Ontiveros MD [address] [place] [address] CHIEF COMPLAINT: follow up permanent atrial fibrillation HISTORY OF PRESENT ILLNESS: Mr. Torres is a 78 year old male who presents today for followed by Dr. Goldberg, Dr. Bagley for permanent atrial fibrillation (rate control strategy, [id number]-[id number]: 2%), known CAD (: s/p CABG x3, PECK to LAD, SVG to PDA, left radial artery to the obtuse marginal 1, TV repair with a ring, AVR with austen inspiris valve, left atrial appendage clip, cryo maze), preserved LV systolic heart function (echo: 2021: EF 56%, pulmonary hypertension RVSP 49mmHg, LA severely dilated), Other PMH of hypertension, hyperlipidemia, [facility] anticoagulation, anemia. 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 Golden Eagle-3 Fatty Acids-Vitamin E 1,000 mg cap Take [...] Itching HEMATOLOGICAL/LYMPHATIC: Ne (more content not included)... [facility] 03-04-2023 Miscellaneous Notes Scripts printed and signed [...] mouth once daily. Authorizing Provider: AMY SUBRAMANIAN APRN.DIRECTOR TREASURER Print scripts pended, will ask MAYANK in office (Amy) to print and sign and will fax once completed Patient asking for new scripts for eliquis and [facility]rol[phone]. [facility] and needs letter of support of why patient is on both medications above. Please fax to [phone]. documented in this encounter [facility] 11-21-2022 Miscellaneous Notes The following approved medication [...] 1.22 mg/dL Final documented in this encounter [facility] 06-13-2022 Note OPERATIVE NOTE OPERATION DATE: 06/13/2022 [...] good health. CC: Austen Ontiveros M.D. [facility] 06-04-2022 History of Present illness Narrative Referring Physician: SELF Primary Care Physician: Austen Ontiveros MD, MD Britta Torres is a 77 year [...] home ASSESSMENT/PLAN: 1. 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 No [...] Ever Goldberg MD documented in this encounter [facility] 05-27-2022 Note Chief Complaint consultation for iron [...] extraction, EXCISION LESION, (more content not included)... [facility] Comment on above: Result Comment: Elec tronically Signed By: JOSEY TINEO, Ishaan Campbell\Date and Time Signed: 05/27/22 10:40 EST 05-22-2022 [...] not included. Agnes Stephens RN Avw Card Lead Oxide Mill Tender; Sowmya Tijerina APRN.CARMEN 18 hours ago (2:47 PM) LS No notes have addressed the patients question regarding gi work up. The Eliquis has not been addressed. Sowmya routed a message only to Danyell Downs. So nobody else saw it until patient called again and then the message was rerouted back to [facility] nurses. Original message was on 05/11. Thanks, Agnes Noguera reviewed the message Patient permanent atrial fibrillation GFR January 2022 >60 Patient ok to have colonoscopy and EGD, unsure why would he have to wait a year. Recommendation: ok to hold the apixaban for one to two day prior to the procedure and restart that day ok by GI thank you Amy Subramanian APRN.CARMEN Patient waiting to hear back about a [...] true or not . His number is [phone] Thank you so much Quita Miller PSS documented in this encounter [facility] 04-11-2022 Miscellaneous Notes Requested Prescriptions Signed Prescriptions [...] 1.22 mg/dL Final documented in this encounter [facility] 01-18-2022 Instructions Ever Goldberg V, MD - [...] appt soon ] documented in this encounter [facility] 01-18-2022 History of Present illness Narrative Referring Physician: Amy Subramanian [address] [facility] [address] Primary Care Physician: Austen Ontiveros MD, MD [...] better ASSESSMENT/PLAN: 1. 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 Golden Eagle-3 Fatty Acids-Vitamin E (FISH OIL) 1,000 mg [...] after first dose) 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 (HCC) 06/2021 s/p [...] 2006 TONSILLECTOMY & ADENOIDECTOMY <AGE 13 1957 Family Cardiac History: CAD / [place]: yes: sister Do you need any refills [...] Ever Goldberg MD documented in this encounter [facility] 12-26-2021 Miscellaneous Notes Spoke to the patient [...] appointment 5. He would benefit in purchasing Piazza to check heart rates with symptom changes 6. I will FYI Dr. Bagley 7. If he needs a refill metoprolol let us know thank you Amy Subramanian APRN.DIRECTOR TREASURER Patient calling States for past 10 days [...] as listed Patient can be reached at [phone], may leave a message documented in this encounter [facility] 10-23-2021 Miscellaneous Notes Pt called in asking [...] pt is requesting it be sent to [facility] in [place] ([address] [place] [address], ). If there are any questions or concerns please contact the pt. Thank you! documented in this encounter [facility] 06-20-2021 History of Past i llness Narrative [...] 06/23; remains in AF. Adequate hemodynamics in t[place] apache rhythm. Echo w/ RV mildly dilated, RV [...] of this encounter (statuses as of 10/23/2021) [facility]12-14-2021 History of Past illness Narrative* Problem Noted [...] 06/23; remains in AF. Adequate hemodynamics in [place] rhythm. Echo w/ RV mildly dilated, RV [...] of this encounter (statuses as of 12/26/2021) [facility]21 History of Past illness Narrative* Problem Noted [...] 06/23; remains in AF. Adequate hemodynamics in [place] rhythm. Echo w/ RV mildly dilated, RV [...] of this encounter (statuses as of 01/18/2022) [facility]21 History of Past illness Narrative* Problem Noted [...] 06/23; remains in AF. Adequate hemodynamics in [place] rhythm. Echo w/ RV mildly dilated, RV [...] of this encounter (statuses as of 03/01/2022) [facility] History of Past illness Narrative* Problem Noted [...] 06/23; remains in AF. Adequate hemodynamics in [place] rhythm. Echo w/ RV mildly dilated, RV [...] of this encounter (statuses as of 04/11/2022) [facility] History of Past illness Narrative* Problem Noted [...] 06/23; remains in AF. Adequate hemodynamics in [place] rhythm. Echo w/ RV mildly dilated, RV [...] of this encounter (statuses as of 05/22/2022) [facility] History of Past illness Narrative* Problem Noted [...] 06/23; remains in AF. Adequate hemodynamics in [place] rhythm. Echo w/ RV mildly dilated, RV [...] of this encounter (statuses as of 06/04/2022) [facility] History of Past illness Narrative* Problem Noted [...] 06/23; remains in AF. Adequate hemodynamics in [place] rhythm. Echo w/ RV mildly dilated, RV [...] of this encounter (statuses as of 08/31/2022) [facility] History of Past illness Narrative* Problem Noted [...] 06/23; remains in AF. Adequate hemodynamics in [place] rhythm. Echo w/ RV mildly dilated, RV [...] of this encounter (statuses as of 11/22/2022) [facility] History of Past illness Narrative* Problem Noted [...] 06/23; remains in AF. Adequate hemodynamics in [place] rhythm. Echo w/ RV mildly dilated, RV [...] of this encounter (statuses as of 02/13/2023) [facility] History of Past illness Narrative* Problem Noted [...] 06/23; remains in AF. Adequate hemodynamics in [place] rhythm. Echo w/ RV mildly dilated, RV [...] of this encounter (statuses as of 03/05/2023) [facility] History of Past illness Narrative* Problem Noted [...] 06/23; remains in AF. Adequate hemodynamics in [place] rhythm. Echo w/ RV mildly dilated, RV [...] of this encounter (statuses as of 06/07/2023) [facility] History of Past illness Narrative* Problem Noted [...] 06/23; remains in AF. Adequate hemodynamics in [place] rhythm. Echo w/ RV mildly dilated, RV [...] of this encounter (statuses as of 08/09/2023) [facility] History of Past illness Narrative* Problem Noted [...] 06/23; remains in AF. Adequate hemodynamics in [place] rhythm. Echo w/ RV mildly dilated, RV [...] as of this encounter (statuses as of 09/04/2023) [facility] History of Past illness Narrative* Problem Noted [...] 06/23; remains in AF. Adequate hemodynamics in [place] rhythm. Echo w/ RV mildly dilated, RV [...] as of this encounter (statuses as of 09/05/2023) [facility]09-16-2021 NoteHNO ID: [id number] Author: Sheryl Negrete RN Service: Nursing Author Type: Registered Nurse Type: Nursing Progress Note Filed: 03/22/2021 8:06 AM Note Text: Page sent to Dr. Bagley requesting medication orders for CTA coronary.[facility] + Plan note No data available for this section [facility] [place] Evaluation note* Diagnosis Paroxysmal atrial fibrillation (HCC) Atrial fibrillation documented in this encounter [facility] note* Diagnosis 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 (HCC)- Primary Nonrheumatic aortic valve stenosis Aortic valve disorders S/P AVR (aortic valve replacement) Heart valve replaced by other means Pulmonary hypertension (HCC) Other chronic pulmonary heart diseases Atrial fibrillation, persistent (HCC) Atrial fibrillation Chronic diastolic (congestive) heart failure (HCC) documented in this encounter [facility] note* Diagnosis Atrial fibrillation, persistent (HCC)- Primary Atrial fibrillation documented in this encounter [facility] note* Diagnosis Medication refill [Z76.0 (ICD-10-CM)]- Primary Issue of repeat prescriptions documented in this encounter [facility] note* Diagnosis Medication management [Z79.899 (ICD-10-CM)]- Primary Encounter for long-term (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 other medications documented in this encounter [facility] note* Diagnosis 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 (HCC)- Primary S/P AVR (aortic valve replacement) bio Heart valve replaced by other means Pulmonary hypertension (HCC) Other chronic pulmonary heart diseases Chronic a-fib (HCC) Atrial fibrillation Pure hypercholesterolemia documented in this encounter [facility] note* Diagnosis Chronic atrial fibrillation (HCC)- Primary Atrial fibrillation documented in this encounter [facility] note* Diagnosis Medication refill [Z76.0]- Primary Issue of repeat prescriptions documented in this encounter [facility] note* Diagnosis Permanent atrial fibrillation (HCC)- Primary Atrial fibrillation Essential hypertension Unspecified essential hypertension [facility]* Diagnosis S/P AVR- Primary Heart valve replaced by other means 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 (HCC) Pulmonary hypertension (HCC) Other chronic pulmonary heart diseases Chronic a-fib (HCC) Atrial fibrillation Pure hypercholesterolemia Other forms of dyspnea documented in this encounter [facility] note* Diagnosis Left posterior capsular opacification- Primary After-cataract, unspecified Pseudophakia, left eye Lens replaced by other means Combined forms of 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 Other and combined forms of senile cataract documented in this encounter [facility] note* Diagnosis Combined forms of 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 Other and combined forms of senile cataract Combined forms of 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 Other and combined forms of senile cataract documented in this encounter [facility] note* Diagnosis Pre-operative clearance- Primary Preoperative examination, unspecified Chronic a-fib (HCC) Atrial fibrillation 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 (HCC) Primary hypertension Unspecified essential hypertension Pure hypercholesterolemia History of cardioversion Personal history of surgery to heart and great vessels, presenting hazards to health Permanent atrial fibrillation (HCC) Atrial fibrillation Aortic valve stenosis, etiology of cardiac valve disease unspecified Pulmonary hypertension (HCC) Other chronic pulmonary heart diseases Combined forms of 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 Other and combined forms of senile cataract * Assessment & Plan Note - Monse Barba APRN.CNP - 11/14/2023 10:06 AM EDTAssociated Problem(s): Pulmonary hypertension (HCC) Stable. Follows cardiology, Dr. Goldberg, Compliant on medications. Appears euvolemic, denies new or worsening cardiac symptoms. Ejection Fraction - Result: 56 % Date: 01/18/2022 Time: 07:57:34 * Assessment & Plan Note - Monse Barba APRN.CNP - 11/14/2023 10:06 AM EDTAssociated Problem(s): Iron deficiency anemia, unspecified Stable on iron supplement Hemoglobin (g/dL) Date Value 01/18/2022 12.9 07/05/2021 10.1 Hematocrit (%) Date Value 01/18/2022 41.2 07/05/2021 32.2 WBC (k/uL) Date Value 01/18/2022 4.66 07/05/2021 7.13 * Assessment & Plan Note - Monse Barba APRN.CNP - 11/14/2023 10:05 AM EDTAssociated Problem(s): HTN (hypertension) Stable on medication Today To take medication morning of surgery * Assessment & Plan Note - Monse Barba APRN.CNP - 11/14/2023 10:05 AM EDTAssociated Problem(s): Aortic valve stenosis History: Echo with severe and trace AR. Assessment: 06/19/2021: AVR (#25 Inspiris) Plan: Daily ASA Follows with Dr. Goldberg * Assessment & Plan Note - Monse Barba APRN.CNP - 11/14/2023 10:04 AM EDTAssociated Problem(s): 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 (HCC) History of 06/19/2021: CABG x 3 (PECK-LAD, Vein-PDA, Radial Artery-OM1) Follows with Dr. Goldberg * Assessment & Plan Note - Monse Barba APRN.CNP - 11/14/2023 10:04 AM EDTAssociated Problem(s): Hyperlipidemia Stable on medication * Assessment & Plan Note - Monse Barba APRN.CNP - 11/14/2023 9:56 AM EDTAssociated Problem(s): Permanent atrial fibrillation (HCC) History of A-fib, rate controlled On eliquis Follows with Dr. Goldberg * Assessment & Plan Note - Monse Barba APRN.CNP - 11/14/2023 9:56 AM EDTAssociated Problem(s): History of cardioversion Continues to be in rate controlled A-fib [facility]* Diagnosis Pre-operative clearance- Primary Preoperative examination, unspecified Chronic a-fib (HCC) Atrial fibrillation 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 (HCC) Primary hypertension Unspecified essential hypertension Pure hypercholesterolemia History of cardioversion Personal history of surgery to heart and great vessels, presenting hazards to health Permanent atrial fibrillation (HCC) Atrial fibrillation Aortic valve stenosis, etiology of cardiac valve disease unspecified Pulmonary hypertension (HCC) Other chronic pulmonary heart diseases Coronary artery disease involving coronary bypass graft of 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- Primary [facility]* Diagnosis Pre-operative clearance- Primary Preoperative examination, unspecified Chronic a-fib (HCC) Atrial fibrillation 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 (HCC) Primary hypertension Unspecified essential hypertension Pure hypercholesterolemia History of cardioversion Personal history of surgery to heart and great vessels, presenting hazards to health Permanent atrial fibrillation (HCC) Atrial fibrillation Aortic valve stenosis, etiology of cardiac valve disease unspecified Pulmonary hypertension (HCC) Other chronic pulmonary heart diseases Current use of rn long term care anticoagulation- Primary Long-term (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 anticoagulants documented in this encounter [facility] Discharge instructions No data available for this section [facility] [place] Progress note No data available for this section [facility] [place] Reason for referral (narrative)* Outpatient Procedure (Routine) - Pending Review Specialty Diagnoses / Procedures Referred By Contac t [facility] Diagnoses Chronic atrial fibrillation (HCC) Procedures ECG COMPLETE ECG ROUTINE ECG W/LEAST 12 LDS W/[place] [address] [place] [address] [facility] [place] [address] [place] [address] Referral ID Status Reason Start Date Expiration Date Visits Requested Visits Authorized [id number] Pending Review Auto-Generat ed Referral 08/31/2022 08/31/2023 1 1 [facility] for referral (narrative)* Outpatient Procedure (Routine) - Pending Review Specialty Diagnoses / Procedures Referred By Contac t Referred To Contact [facility] Diagnoses Permanent atrial fibrillation (HCC) Procedures ECG COMPLETE ECG ROUTINE ECG W/LEAST 12 LDS W/I&R Amy Subramanian APRN.CNP [address] [place] [address] [facility] [place] [address] [place] [address] Referral ID Status Reason Start Date Expiration Date Visits Requested Visits Authorized [id number] Pending Review Auto-Generat ed Referral 06/07/2023 06/06/2024 1 1 [facility] for referral (narrative)* Outpatient Procedure (Routine) - Authorized Specialty Diagnoses / Procedures Referred By Contac t Referred To Contact [facility] Diagnoses S/P AVR Pulmonary hypertension (HCC) Procedures ECHO ECHO TTHRC R-T 2D W/WOM-MODE COMPL SPEC&[place] [address] [place] [address] [facility] [place] [address] [place] [address] Referral ID Status Reason Start Date Expiration Date Visits Requested Visits Authorized [id number] Authorized Auto-Generat ed Referral 08/09/2023 08/08/2024 1 1 [facility] Summary Purpose Family History No Family History Records FoundNo Family History Records FoundNo Family History Records FoundNo Family History Records FoundNo Family History Records FoundNo Family History Records Found Advance Directives No Advanced Directives Records FoundDocuments on File Type Date Recorded Patient Electronic Prepress System Operator Expl anation Advance Directive(s) 06/07/2021 2:19 PM Advance Directive(s) 05/29/2021 3:32 PM Advance Directive(s) 03/30/2021 6:38 AM Advance Directive(s) 03/28/2021 3:26 PM Documents on File Type Date Recorded Patient Electronic Prepress System Operator Expl anation Power of Skills Trainer 01/02/2023 1:48 PM Advance Directives and Living Will 12/13/2021 2021-12-11 Power Of Skills Trainer Power of Skills Trainer 12/11/2021 11:29 AM Additional Source Comments (unrecognized sect ion and content) No Status Records FoundNo Status Records FoundNo Status Records FoundNo Status Records FoundNo Status Records FoundNo Status Records Found INFORMATION SOURCE (unrecogn ized section and content) DATE CREATED AUTHOR 04/07/2021 [facility] DATE CREATED AUTHOR AUTHOR'S ORGANIZ ATION 06/18/2022 [facility] DATE CREATED AUTHOR AUTHOR'S ORGANIZ ATION 10/14/[address] [facility] DATE CREATED AUTHOR AUTHOR'S ORGANIZ ATION 06/14/2023 [facility] dical [facility] DATE CREATED AUTHOR AUTHOR'S ORGANIZ ATION 08/10/2023 [facility] DATE CREATED AUTHOR AUTHOR'S ORGANIZ ATION 03/22/2024 [facility] Source Comments (unrecognize d section and content) In the event this informatio n is protected by the Federal Confidentiality of Alcohol and Drug Abuse Patient Records regulations: The Federal rules restrict any use of the information to criminally investigate or prosecute any alcohol or drug abuse patient.[facility] the event this information is protected by the Federal Confidentiality of Alcohol and Drug Abuse Patient Records regulations: The Federal rules restrict any use of the information to criminally investigate or prosecute any alcohol or drug abuse patient.[facility] the event this information is protected by the Federal Confidentiality of Alcohol and Drug Abuse Patient Records regulations: The Federal rules restrict any use of the information to criminally investigate or prosecute any alcohol or drug abuse patient.[facility] the event this information is protected by the Federal Confidentiality of Alcohol and Drug Abuse Patient Records regulations: The Federal rules restrict any use of the information to criminally investigate or prosecute any alcohol or drug abuse patient.[facility] the event this information is protected by the Federal Confidentiality of Alcohol and Drug Abuse Patient Records regulations: The Federal rules restrict any use of the information to criminally investigate or prosecute any alcohol or drug abuse patient.[facility] Center[facility] the event this information is protected by the Federal Confidentiality of Alcohol and Drug Abuse Patient Records regulations: The Federal rules restrict any use of the information to criminally investigate or prosecute any alcohol or drug abuse patient.[facility] Center[facility] the event this information is protected by the Federal Confidentiality of Alcohol and Drug Abuse Patient Records regulations: The Federal rules restrict any use of the information to criminally investigate or prosecute any alcohol or drug abuse patient.[facility] Center[facility] the event this information is protected by the Federal Confidentiality of Alcohol and Drug Abuse Patient Records regulations: The Federal rules restrict any use of the information to criminally investigate or prosecute any alcohol or drug abuse patient.[facility] Center[facility] the event this information is protected by the Federal Confidentiality of Alcohol and Drug Abuse Patient Records regulations: The Federal rules restrict any use of the information to criminally investigate or prosecute any alcohol or drug abuse patient.[facility] Center[facility] the event this information is protected by the Federal Confidentiality of Alcohol and Drug Abuse Patient Records regulations: The Federal rules restrict any use of the information to criminally investigate or prosecute any alcohol or drug abuse patient.[facility] Center[facility] the event this information is protected by the Federal Confidentiality of Alcohol and Drug Abuse Patient Records regulations: The Federal rules restrict any use of the information to criminally investigate or prosecute any alcohol or drug abuse patient.[facility] Center[facility] the event this information is protected by the Federal Confidentiality of Alcohol and Drug Abuse Patient Records regulations: The Federal rules restrict any use of the information to criminally investigate or prosecute any alcohol or drug abuse patient.[facility] CenterIn the event this information is protected by the Federal Confidentiality of Alcohol and Drug Abuse Patient Records regulations: The Federal rules restrict any use of the information to criminally investigate or prosecute any alcohol or drug abuse patient.[facility] CenterIn the event this information is protected by the Federal Confidentiality of Alcohol and Drug Abuse Patient Records regulations: The Federal rules restrict any use of the information to criminally investigate or prosecute any alcohol or drug abuse patient.[facility] CenterIn the event this information is protected by the Federal Confidentiality of Alcohol and Drug Abuse Patient Records regulations: The Federal rules restrict any use of the information to criminally investigate or prosecute any alcohol or drug abuse patient.[facility] CenterIn the event this information is protected by the Federal Confidentiality of Alcohol and Drug Abuse Patient Records regulations: The Federal rules restrict any use of the information to criminally investigate or prosecute any alcohol or drug abuse patient.[facility] CenterIn the event this information is protected by the Federal Confidentiality of Alcohol and Drug Abuse Patient Records regulations: The Federal rules restrict any use of the information to criminally investigate or prosecute any alcohol or drug abuse patient.[facility] CenterIn the event this information is protected by the Federal Confidentiality of Alcohol and Drug Abuse Patient Records regulations: The Federal rules restrict any use of the information to criminally investigate or prosecute any alcohol or drug abuse patient.[facility] CenterIn the event this information is protected by the Federal Confidentiality of Alcohol and Drug Abuse Patient Records regulations: The Federal rules restrict any use of the information to criminally investigate or prosecute any alcohol or drug abuse patient.[facility] CenterIn the event this information is protected by the Federal Confidentiality of Alcohol and Drug Abuse Patient Records regulations: The Federal rules restrict any use of the information to criminally investigate or prosecute any alcohol or drug abuse patient.[facility] Center[facility] the event this information is protected by the Federal Confidentiality of Alcohol and Drug Abuse Patient Records regulations: The Federal rules restrict any use of the information to criminally investigate or prosecute any alcohol or drug abuse patient.[facility] Reason for Visit (unrecogniz ed section and [...] passes. Does not linger. Happens at rest. Reason Comments Posterior Capsule Opacification Evaluati on LEFT EYE Cataract Evaluation RIGHT EYE Reason Comments Results Reason Comments Pre-Op Exam Reason Comments Pre-Op Visit Reason Comments covid exposure / questions Reason Comments Orders Reason Comments Medication Problem Care Teams (unrecognized sec tion and content) Budget Assistant Relationship Specialty Start Date End Date Austen Ontiveros [address] [place] [address] (Fax) PCP - General Family Practice 02/05/17 Budget Assistant Relationship Specialty Start Date End Date Austen Ontiveros MD [address] [place] [address] (Fax) PCP - General Family Practice 02/05/17 Budget Assistant Relationship Specialty Start Date End Date Austen Ontiveros MD [address] [place] [address] (Fax) PCP - General Family Practice 02/05/17 Budget Assistant Relationship Specialty Start Date End Date Austen Ontiveros MD [address] [place] [address] (Fax) PCP - General Family Practice 02/05/17 Budget Assistant Relationship Specialty Start Date End Date Austen Ontiveros MD [address] [facility] [place] [address] (Fax) PCP - General Family Medicine 02/05/17 Budget Assistant Relationship Specialty Start Date End Date Austen Ontiveros MD [address] [facility] [place] [address] (Fax) PCP - General Family Medicine 02/05/17 Budget Assistant Relationship Specialty Start Date End Date Austen Ontiveros MD [address] [place] [address] (Fax) PCP - General Family Medicine 02/05/17 Budget Assistant Relationship Specialty Start Date End Date Austen Ontiveros MD [address] [facility] [place] [address] (Fax) PCP - General Family Medicine 02/05/17 Budget Assistant Relationship Specialty Start Date End Date Austen Ontiveros MD [address] [place] [address] (Fax) PCP - General Family Medicine 02/05/17 Budget Assistant Relationship Specialty Start Date End Date Austen Ontiveros MD [address] [facility] [place] [address] (Fax) PCP - General Family Medicine 02/05/17 Budget Assistant Relationship Specialty Start Date End Date Austen Ontiveros MD [address] [place] [address] (Fax) PCP - General Family Medicine 02/05/17 Budget Assistant Relationship Specialty Start Date End Date Austen Ontiveros MD [address] [place] [address] (Fax) PCP - General Family Medicine 02/05/17 Budget Assistant Relationship Specialty Start Date End Date Austen Ontiveros MD [address] [place] [address] (Fax) PCP - General Family Medicine 02/05/17 Budget Assistant Relationship Specialty Start Date End Date Austen Ontiveros MD [address] [place] [address] (Fax) PCP - ACO Reach 11/29/22 Austen Ontiveros MD [address] [place] [address] PCP - General Family Medicine 12/17/22 Budget Assistant Relationship Specialty Start Date End Date Austen Ontiveros MD [address] [place] [address] (Fax) PCP - General Family Medicine 02/05/17 Budget Assistant Relationship Specialty Start Date End Date Austen Ontiveros MD [address] [place] [address] (Fax) PCP - General Family Medicine 02/05/17 Budget Assistant Relationship Specialty Start Date End Date Austen Ontiveros MD [address] [place] [address] (Fax) PCP - General Family Medicine 02/05/17 Budget Assistant Relationship Specialty Start Date End Date Austen Ontiveros MD [address] [place] [address] (Fax) PCP - General Family Medicine 02/05/17 Budget Assistant Relationship Specialty Start Date End Date Austen Ontiveros MD [address] [place] [address] (Fax) PCP - General [facility] 02/05/17 Budget Assistant Relationship Specialty Start Date End Date Austen Ontiveros MD [address] [facility] [place] [id number] (Fax) PCP - General [facility] Medicine 02/05/17 Budget Assistant Relationship Specialty Start Date End Date Austen Ontiveros MD [address] [place] [address] (Fax) PCP - General [facility] 02/05/17 Budget Assistant Relationship Specialty Start Date End Date Austen Ontiveros MD [address] [facility] [place] [address] (Fax) PCP - General Family Medicine 02/05/17 Inactive Administered Medications - up to 3 most recent administrations Administered Medications (un recognized section and content) Medication Order MAR Action Action Date Dose Rate Site fluorescein-benoxinate 0.3-0.4 % 1 Drop (FLURESS) 1 Drop, BOTH EYES, DIRECTED, Starting on Sat09/03/23 at 1430, Until Sat09/04/23 at 0229, Administer for applanation tonometry. In the event of a Fluress shortage, administer 1 drop of Eloise-Fluor into both eyes as directed for applanation tonometry., [facility] MED ORDERS Given 09/03/2023 2:30 PM EST 1 Drop tropicamide 1 % 1 Drop (MYDRIACYL) 1 Drop, BOTH EYES, DIRECTED, Starting on Sat09/03/23 at 1430, Until Sat09/04/23 at 0229, Administer for dilation, [facility] MED ORDERS Given 09/03/2023 2:30 PM EST 1 Drop FOR RECORDS PERTAINING TO PATIENTS WHO ARE [...] BE BASED ON THE PRIMARY CLINICAL RECORDS. [facility] provides no warranty or guarantee of the accuracy or completeness of information in this document.
[2024-03-27 11:02] LABS: Alanine Aminotransferase 32 U/L (16-63); Albumin Level 3.5 g/dL (3.4-5.0); Alkaline Phosphatase 114 U/L (46-116); Aspartate Amino Transferase 34 U/L (15-37); BUN Creatinine Ratio 25.8; Bilirubin Total 1.1 mg/dL (0.2-1.0); Calcium 9.1 mg/dL (8.5-10.1); Chloride 103 mmol/L (98-107); Chol HDL Ratio 2.2; Cholesterol 126 mg/dL (<=200); Estimated GFR (African America >60 (>=60); Estimated GFR (Non-African Ame >60 (>=60); Globulin 3.4 g/dL; Glucose 92 mg/dL (74-106); HDL Cholesterol 56 mg/dL (40-60); LDL Cholesterol Calculated 59.4 mg/dL; Potassium 4.3 mmol/L (3.5-5.1); Sodium 140 mmol/L (136-145); Total Protein 6.9 g/dL (6.4-8.2); Triglycerides 53 mg/dL (<=150); VLDL CHOLESTEROL 10.6 mg/dL
[2024-03-27 11:03] LABS: Anion Gap 11.1; Carbon Dioxide 30.2 mmol/L (21.0-32.0)
== END 2024-03-27 09:10 | disposition home or self-care (01) ==
LOC: LAB 09:09
PROVIDERS: PCP Family Medicine
DX: I25.810 Atherosclerosis of coronary artery bypass graft(s) without angina pectoris (principal)
CPT/HCPCS: 36415; 80053; 80061

== ENCOUNTER 2025-01-07 09:09 | Outpatient (OUT) | payer MEDICARE, OTHER, SELFPAY ==
--- OUTSIDE RECORDS SUMMARY | 2025-01-07 09:31 | XMS_ITS | CCD ---
Author Organization [facility] Care Team Providers Care Boiler Riveter Name Role Phone Austen Ontiveros Primary Care Provider AUSTEN ONTIVEROS Primary Care Physician [phone] Austen Ontiveros MD Primary Care Provider Ishaan [...] Unavailable NILL ., DR QUIROS Consulting Unavailable MARE NICHOLSON Consulting Unavailable SANGEETHABUSYEHUDA Consulting Unavailable HEMEYER ., DR RAMOS Primary [...] Unavailable HEMEYER ., DR RAMOS Consulting Unavailable EVER GOLDBERG Referring Unavailable AUSTEN ONTIVEROS Primary Care Unavailab Austen Marie MD Unavailable [phone] Austen Ontiveros MD Primary Care Provider [phone] Austen Ontiveros MD Primary Care Provider Austen Ontiveros MD Unavailable Austen Ontiveros MD Primary Care Provider [phone] Austen Ontiveros MD Unavailable [phone] Austen Ontiveros MD Primary Care Provider Walker Edge MD Attending Provider [phone] Walker Edge Admitting Unavailable Walker Edge Attending Unavailable NO FAMILY, PHYSICIAN Primary Care Unavailable AUSTEN ONTIVEROS Attending Unavailable AUSTEN ONTIVEROS Attending Unavailable AUSTEN ONTIVEROS Attending Unavailable AUSTEN ONTIVEORS Attending Unavailable AUSTEN ONTIVEROS Attending Unavailable EVER GOLDBERG Referring Unavailable [facility], [facility] Primary Care Unavailab PATRICIA Torres Attending Unavailable [facility], [facility] Care Unavailab le RAMA, [facility] Primary Care Unavailab EVER Verdin Attending Unavailable [facility], [facility] Care Unavailab PATRICIA Torres Attending Unavailable [facility], [facility] Unavailab DHARMESH Wilson Attending Unavailable [facility], [facility] Unavailab le Allergies Allergy Classification Reported Allergen(s) Allergy Type Date of Onset Reaction(s) Facility (20 sources) Chlorpheniramine / Pseudoephedrine; Translations: [CHLORPHENIRAMINE-P SEUDOEPHED] Drug Allergy 07-20-19 14 Unknown [facility] Work Phone: (20 sources) Niacin; Translations: [niacin] Drug Allergy 07-20-19 14 Unknown, Blushing, function (observable entity) [facility] Work Phone: (12 sources) rosuvastatin Drug Allergy 08-23-19 22 Other: See Comments [facility] (20 sources) Sulfamethoxazole / Trimethoprim; Translations: [SULFAMETHOXAZOLE-T RIMETHOPRIM] Drug Allergy 07-20-19 14 Unknown [facility] Work Phone: (20 sources) Chlorpheniramine; Translations: [chlorpheniramine] Drug Allergy 12-27-19 Bladder retention of urine (observable entity) [facility] (3 sources) guaiFENesin / HYDROcodone / Pseudoephedrine; Translations: [guaifenesin/hydroc odone/pseudoephedri ne] Drug Allergy Bladder retention of urine (observable entity) [facility] (20 sources) HMG-CoA reductase inhibitor; Translations: [statins] Drug allergy 12-27-19 Unknown (qualifier value) [facility] (3 sources) Sulfamethoxazole; Translations: [sulfamethoxazole] Drug Allergy Constipation (disorder) [facility] (20 sources) Trimethoprim; Translations: [trimethoprim] Drug Allergy 12-27-19 Unknown (qualifier value) [facility] (1 source) Niacin; Translations: [Niaspan ER] Drug Allergy [facility] (1 source) black walnut pollen extract Drug Allergy [facility] (1 source) Chlorpheniramine Drug Allergy [facility] (1 source) Chlorpheniramine / Pseudoephedrine Drug Allergy 05-25-20 13 [facility] (1 source) Niacin Drug Allergy 05-25-20 13 [facility] (1 source) Sulfamethoxazole / Trimethoprim Drug Allergy 05-25-20 13 [facility] (1 source) Sulfonamides (Antibiotic) Drug allergy (disorder) 05-25-20 13 [facility] (1 source) Trimethoprim Drug Allergy [facility] (20 sources) Niacin Drug Allergy 12-27-19 [facility] (20 sources) Pseudoephedrine; Translations: [PSEUDOEPHEDRINE] Drug Allergy 12-27-19 Unknown [facility] (20 sources) Sulfamethoxazole Allergy to substance 12-27-19 [facility] Medications Current Medications Medication Drug Class(es) Dates Sig (Normalized) Sig (Original) albuterol 0.83 mg/ml inhalation solution (12 sources) beta2-Adrenergic Agonist Start: 11-02-2024 End: 12-02-2024 albuterol (2.5 MG/3ML) 0.083% nebulizer solution Indications: Pneumonia of right lower lobe due to infectious organism Take 3 mL (2.5 mg) by nebulization in the morning and 3 mL (2.5 mg) at noon and 3 mL (2.5 mg) in the evening and 3 mL (2.5 mg) before bedtime. 360 mL 11/02/2024 Active take 2 puff(s) by in halation every six hours for wheezing albuterol 108 (90 Base) MCG/ACT inhaler Inhale 2 puffs every 6 (six) hours if needed for wheezing Active albuterol 108 (90 Base) MCG/ACT inhaler (10 sources) take 2 puff(s) by inhalation every six hours for wheezing albuterol 108 (90 Base) MCG/ACT inhaler Inhale 2 puffs every 6 (six) hours if needed for wheezing Active amLODIPine 2.5 mg oral tablet (3 sources) Dihydropyridine Calcium Channel Beth Start: 09-30-19 End: 01-19-20 take 1 tablet by mouth once daily amLODIPine (NORVASC) 2.5 mg tablet Take 1 tablet by mouth once daily. 90 tablet 3 09/29/2021 01/18/2022 Discontinued (Discontinued by another Health Care Provider) Comment on above: Take 1 tablet by primo th once daily. apixaban 5 mg oral tablet (20 sources) Factor Xa Inhibitor Start: 01-06-20 take 1 tablet by mouth twice daily apixaban (ELIQUIS) 5 mg tab(s) Take 1 tablet by mouth two times a day. 180 tablet 3 01/05/2025 Active Start: 11-24-2021 End: 01-05-2025 take 1 tablet by mouth in the morning Eliquis 5 MG tablet Take 5 mg by mouth in the morning and 5 mg before bedtime. 11/21/2022 Active Comment on above: Take 1 [...] Take 1 tablet by primo once daily. Take 1 tablet by primo every other day. bisoprolol fumarate 10 mg oral tablet (20 sources) beta-Adrenergic Beth Start: 01-05-2025 take 1 tablet by mouth twice daily bisoprolol (ZEBETA) 10 mg tablet Take 1 tablet by mouth two times a day. 180 tablet 3 01/05/2025 Active Start: 10-20-2022 End: 01-05-2025 take 2 tablets by mouth once daily bisoprolol (ZEBETA) 10 mg tablet Take 2 tablets by mouth once daily. 180 tablet 3 03/19/2024 01/05/2025 Discontinued Start: 03-17-2022 End: 04-11-2022 take 2 tablets [...] Take 1 tablet by primo once daily. Take 1.5 tablets by mouth once daily. TAKE 2 TABLETS BY [facility] EVERY DAY Take 2 tablets by mo [facility] once daily. Calcium Carbonate / vitamin D3 (20 sources) take 2000 [IU] by mouth twice daily CALCIUM CARBONATE/VITAMIN D3 (VITAMIN D-3 ORAL) Take 2,000 Units by mouth twice daily. Active take 2000 [IU] by mouth twice da joshua CALCIUM CARBONATE/VITAMIN D3 (VITAMIN D-3 ORAL) Take 2,000 Units by mouth twice daily. 0 Active Comment on above: Take 2,000 Units by mouth twice daily. cefuroxime 500 mg oral tablet (2 sources) Cephalosporin Antibacterial Start: End: take 1 tablet by mouth in the morning cefuroxime (Ceftin) 500 MG tablet Indications: Pneumonia of right lower lobe due to infectious organism Take 1 tablet (500 mg) by mouth in the morning and 1 tablet (500 mg) before bedtime. Do all this for 10 days. 20 tablet 11/02/2024 11/12/2024 Active CHELATED IRON PO (20 sources) CHELATED IRON PO Take by mouth. Active CHELATED IRON PO Take by mouth. 0 Active cholecalciferol, vitamin D3, (VITAMIN D3 ORAL) (3 sources) cholecalciferol, vitamin D3, (VITAMIN D3 ORAL) Take by mouth. Active ferrous sulfate (20 sources) ferrous sulfate (IRON ORAL) Take by [...] mg by mouth once daily. Fish Oils (20 sources) Start: 2 take 1 capsule by mouth once daily Fish Oil 1200 mg oral capsule 1,200 mg = 1 cap(s), Oral, Daily, Refills(s) 0 Start Date: 05/11/22 Status: Ordered take 1 capsule by mouth once sally ly omega-3 (Fish Oil) 1200 MG capsule Take 1 capsule by mouth 1 (one) time each day at the same time. Active take 1 capsule by mouth once sally ly omega-3 (Fish Oil) 1200 MG capsule Take 1 capsule by mouth 1 (one) time each day at the same time. 0 Active ketorolac tromethamine 5 mg/ml ophthalmic solution (9 sources) Nonsteroidal Anti-inflammatory Drug, Cyclooxygenase Inhibitor Start: 11-26-2023 End: 01-05-2025 keTORolac (ACULAR) 0.5 % ophthalmic solution USE DIRECTED BY PHYSICIAN, IN OPERATIVE EYE, BEGINNING ONE DAY AFTER SURGERY 5 mL 11/26/2023 01/05/2025 Discontinued metoprolol tartrate 25 mg oral tablet (1 [...] tablet Indications: Mild persistent asthma without complication (HCC) Take 1 tablet (10 mg) by mouth 1 (one) time each day at the same time. 90 tablet 1 02/21/2023 Active Comment on above: Take 10 mg [...] 0, Prophylaxis Start Date: 09/22/13 Status: Ordered [place]-3 Fatty Acids-Vitamin E 1,000 mg cap (20 sources) take 1 capsule by mouth twice daily [place]-3 Fatty Acids-Vitamin E 1,000 mg cap Take 1 capsule by mouth twice daily. Active take 1 capsule by mouth twice da joshua [place]-3 Fatty Acids-Vitamin E 1,000 mg cap Take 1 capsule by mouth twice daily. 0 Active Comment on above: Take 1 capsule by [facility] twice daily. perflutren lipid microspheres 1.3 mL in NaCl (PF) 0.9% 10 mL injection (DEFINITY) (9 sources) Start: 08-23-19 22 End: 11-23-19 23 perflutren lipid microspheres 1.3 mL in NaCl (PF) 0.9% 10 mL injection (DEFINITY) prednisoLONE acetate 10 mg/ml ophthalmic suspension (9 sources) Corticosteroid Start: 11-26-19 24 End: 01-06-20 25 prednisoLONE acetate (PRED FORTE) 1 % ophthalmic suspension USE DIRECTED BY PHYSICIAN, IN OPERATIVE EYE, BEGINNING ONE DAY AFTER SURGERY 5 mL 11/26/2023 01/05/2025 Discontinued rosuvastatin calcium 10 mg oral tablet (20 sources) HMG-CoA Reductase Inhibitor Start: 01-06-20 take 1 tablet by mouth once daily rosuvastatin (CRESTOR) 10 mg tablet Take 1 tablet by mouth once daily. 90 tablet 3 01/05/2025 Active Start: 02-21-2023 End: 08-20-2023 take 1 tablet by mouth at bedtime rosuvastatin (Crestor) 20 MG tablet Indications: Mixed dyslipidemia Take 1 tablet (20 mg) by mouth at bedtime. 90 tablet 1 02/21/2023 Active Start: 10-20-2022 End: 01-05-2025 take 1 tablet by mouth once daily rosuvastatin (CRESTOR) 10 mg tablet Take 1 tablet by mouth once daily. 90 tablet 3 03/19/2024 01/05/2025 Discontinued Start: 05-11-2022 take 1 tablet by primo [...] Start: 05-11-2022 take 1 capsule by mo [facility] once daily Flomax 0.4 mg Cap [...] fluorescein-benoxi otoniel 0.3-0.4 % 1 Drop (FLURESS) [place]-3 Fatty Acids-Vitamin E (FISH OIL) 1,000 mg cap (3 sources) take 1 capsule by mouth twice daily [place]-3 Fatty Acids-Vitamin E (FISH OIL) 1,000 mg cap Take 1 capsule by mouth twice daily. 0 Active Comment on above: Take 1 capsule by [facility] twice daily. tropicamide 10 mg/ml ophthalmic solution (1 source) Anticholinergic Start: 09-03-2023 End: 09-04-2023 tropicamide 1 % 1 Drop (MYDRIACYL) Problems Active Problems Problem Classification Problem Date Documented Date Episodic/Chronic Adjustment disorders (20 sources) Adjustment disorder with mixed emotional features; Translations: [Adjustment disorder with other symptoms] Onset: 04-08-2017 01-15-2023 Chronic Aortic; peripheral; and visceral artery aneurysms (19 sources) Abdominal aortic ectasia; Translations: [Abdominal aortic ectasia] Onset: 04-07-2024 04-07-2024 Chronic Asthma (20 sources) Asthma; Translations: [Unspecified asthma, uncomplicated] Onset: 06-17-2022 09-22-2013 Chronic Cardiac dysrhythmias (20 sources) Chronic atrial fibrillation; Translations: [Chronic atrial fibrillation, unspecified] Onset: 05-18-2013 Resolved: 04-07-2024 06-29-2021 Chronic Cataract (20 sources) Bilateral age-related nuclear cataracts; Translations: [Age-related nuclear cataract, bilateral] Onset: 05-30-2015 12-26-2022 Chronic Complication of device; implant or graft (8 sources) Arteriosclerosis of coronary artery bypass graft; Translations: [Atherosclerosis of coronary artery bypass graft(s) without angina pectoris] Onset: 05-29-2021 03-16-2024 Chronic Conduction disorders (20 sources) Right bundle branch block; Translations: [Unspecified right bundle-branch block] Onset: 12-26-2022 05-11-2022 Chronic Congestive heart failure; nonhypertensive (20 sources) Chronic diastolic heart failure; Translations: [Chronic diastolic (congestive) heart failure] Onset: 01-18-2022 Chronic Coronary atherosclerosis and other heart disease (20 sources) Coronary atherosclerosis; Translations: [Atherosclerotic heart disease of [place] coronary artery with unspecified angina pectoris] Onset: 05-29-2021 06-29-2021 Chronic Disorders of lipid metabolism (20 sources) Hyperlipidemia; Translations: [Hyperlipidemia, unspecified] Onset: 05-29-2021 05-29-2021 Chronic Essential hypertension (20 sources) Hypertensive disorder; Translations: [Essential (primary) hypertension] Onset: 11-23-2013 Resolved: 04-07-2024 06-29-2021 Chronic Heart valve disorders (20 sources) Aortic valve stenosis; Translations: [Nonrheumatic aortic (valve) stenosis] Onset: 05-29-2021 06-29-2021 Chronic Hyperplasia of prostate (20 sources) Lower urinary tract symptoms due to benign prostatic hypertrophy; Translations: [Benign prostatic hyperplasia with lower urinary tract symptoms] Onset: 04-18-2018 05-29-2021 Chronic Neoplasms of unspecified nature or uncertain behavior (4 sources) Neoplastic disease of uncertain behavior; Translations: [Neoplasm of uncertain behavior, unspecified] 04-22-2024 Episodic Nutritional deficiencies (20 sources) Vitamin D deficiency; Translations: [Vitamin D deficiency, unspecified] Onset: 12-26-2022 05-11-2022 Chronic Occlusion or stenosis of precerebral arteries (2 sources) Bilateral stenosis of carotid arteries; Translations: [Occlusion and stenosis of bilateral carotid arteries] 04-07-2024 Chronic Osteoarthritis (20 sources) Degenerative joint disease involving multiple joints; Translations: [Polyosteoarthritis, unspecified] Onset: 05-28-2016 12-26-2022 Chronic Other aftercare (5 sources) Patient encounter status; Translations: [Other saddle cutter (current) drug therapy] Episodic Other and ill-defined heart disease (20 sources) Bilateral enlargement of atria; Translations: [Cardiomegaly] Onset: 12-26-2022 05-11-2022 Chronic Other circulatory disease (20 sources) Disorder of carotid artery; Translations: [Disorder of arteries and arterioles, unspecified] Onset: 12-26-2022 12-26-2022 Chronic Other eye disorders (20 sources) Vitreous degeneration of right eye; Translations: [Vitreous degeneration, right eye] Onset: 12-26-2022 12-26-2022 Chronic Other hematologic conditions (4 sources) Personal history of diseases of the blood and blood-forming organs and certain disorders involving the immune mechanism; Translations: [PERS HX DZ BLD/BLD-FRM ORG IMMN MCH] Onset: 10-09-2022 Episodic Other injuries and conditions due to external causes (1 source) Heat syncope; Translations: [Heat syncope, initial encounter] 11-04-2024 Episodic Other lower respiratory disease (20 sources) Post-inflammatory pulmonary fibrosis; Translations: [Pulmonary fibrosis, unspecified] Onset: 05-28-2016 05-11-2022 Chronic Other lower respiratory disease (20 sources) Pulmonary granuloma; Translations: [Pulmonary fibrosis, unspecified] Onset: 12-26-2022 05-11-2022 Chronic Other lower respiratory disease (1 source) Dyspnea; Translations: [Other forms of dyspnea] 08-09-2023 Episodic Other lower respiratory disease (1 source) Other forms of dyspnea; Translations: [Other forms of dyspnea] Onset: 08-09-2023 Episodic Other non-epithelial cancer of skin (3 sources) History of malignant neoplasm of skin; Translations: [Personal history of other malignant neoplasm of skin] Onset: 07-29-2024 07-09-2024 Episodic Other skin disorders (6 sources) Change in skin lesion; Translations: [Disorder of pigmentation, unspecified] 04-07-2024 Episodic Pneumonia (except that caused by tuberculosis or sexually transmitted disease) (4 sources) Right lower zone pneumonia; Translations: [Pneumonia, unspecified organism] 11-02-2024 Episodic Pulmonary heart disease (20 sources) Pulmonary hypertension; Translations: [Pulmonary hypertension, unspecified] Onset: 05-18-2013 05-18-2013 Chronic Residual codes; unclassified (2 sources) Active advance directive (copy within chart) ; Translations: [Other specified health status] 03-24-2024 Episodic Residual codes; unclassified (4 sources) Body mass index 20-24 - normal; Translations: [Body mass index (BMI) 22.0-22.9, adult] 04-22-2024 Episodic Spondylosis; intervertebral disc disorders; other back problems (20 sources) Prolapsed lumbar intervertebral disc; Translations: [Other intervertebral disc displacement, lumbar region] Onset: 12-26-2022 12-26-2022 Chronic Syncope (3 sources) Syncope and collapse; Translations: [Syncope and collapse] Onset: 11-27-2024 12-28-2024 Episodic Unclassified (2 sources) Body mass index 20-24 - normal 05-22-2022 Unclassified (2 sources) Drug therapy finding 05-11-2022 Unclassified (2 sources) Polypharmacy 05-11-2022 Unclassified (1 source) CONTACT W/AND (SUSP) EXPOS COVID-19; Translations: [CONTACT W/AND (SUSP) EXPOS COVID-19] Onset: 06-16-2022 Unclassified (1 source) Chronic atrial fibrillation, unspecified; Translations: [Chronic a-fib (HCC)] Onset: 06-29-2021 Past or Other Problems Problem Classification Problem Date Documented Da te Episodic/Chronic Acute and unspecified renal failure (20 sources) Acute injury of kidney; Translations: [Acute kidney failure, unspecified] Onset: 06-22-2021 06-29-2021 Episodic Administrative/social admission (20 sources) Discharge status; Translations: [Encounter for administrative examinations, unspecified] Onset: 05-29-2021 06-28-2021 Episodic Anxiety disorders (20 sources) Mixed anxiety and depressive disorder; Translations: [Adjustment disorder with mixed anxiety and depressed mood] Onset: 12-26-2022 Resolved: 01-02-2023 05-11-2022 Chronic Complications of surgical procedures or medical care (11 sources) Cardiac insufficiency following cardiac surgery; Translations: [Postprocedural cardiac insufficiency following cardiac surgery] Onset: 06-19-2021 Resolved: 06-26-2021 06-26-2021 Chronic Complications of surgical procedures or medical care (11 sources) Hypotension following procedure; Translations: [Postprocedural hypotension] Onset: 06-19-2021 Resolved: 06-21-2021 06-21-2021 Episodic Deficiency and other anemia (4 sources) Iron deficiency anemia, unspecified; Translations: [IRON DEFICIENCY ANEMIA UNSPECIFIED] Onset: 06-13-2022 Episodic Deficiency and other anemia (11 sources) Iron deficiency anemia; Translations: [Iron deficiency anemia, unspecified] Onset: 06-13-2022 11-14-2023 Episodic Diabetes mellitus without complication (11 sources) Metabolic stress hyperglycemia; Translations: [Hyperglycemia, unspecified] Onset: 06-20-2021 Resolved: 06-26-2021 06-26-2021 Episodic Fluid and electrolyte disorders (11 sources) Hypervolemia; Translations: [Fluid overload, unspecified] Onset: 06-20-2021 Resolved: 06-26-2021 06-26-2021 Episodic Heart valve disorders (20 sources) Heart murmur; Translations: [Cardiac murmur, unspecified] Onset: 12-26-2022 12-26-2022 Episodic Mood disorders (20 sources) Mood disorders Onset: 01-02-2023 01-02-2023 Nutritional deficiencies (4 sources) Iron deficiency; Translations: [IRON DEFICIENCY] Onset: 04-25-2022 Episodic Other aftercare (1 source) 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; Translations: [FDC CURRNT USE ANTICOAGULANTS] Onset: 06-17-2022 Episodic Other aftercare (1 source) long-term (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 aspirin; Translations: [FDC CURRENT USE OF ASPIRIN] Onset: 06-17-2022 Episodic Other aftercare (1 source) Other saddle cutter (current) drug therapy; Translations: [OTH FDC CURRENT DRUG THERAPY] Onset: 06-17-2022 Episodic Other aftercare (20 sources) Long-term current use of anticoagulant; Translations: [long-term (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 anticoagulants] Onset: 05-28-2016 01-15-2023 Episodic Other aftercare (20 sources) Polypharmacy ; Translations: [Other saddle cutter (current) drug therapy] Onset: 08-11-2020 01-15-2023 Episodic Other bone disease and musculoskeletal deformities (20 sources) Disorder of bone; Translations: [Other specified disorders of bone density and structure, right thigh] Onset: 12-26-2022 12-26-2022 Episodic Other lower respiratory disease (20 sources) Dyspnea on exertion; Translations: [Dyspnea, unspecified] Onset: 03-30-2021 03-30-2021 Episodic Other lower respiratory disease (20 sources) Nodule of lung; Translations: [Solitary pulmonary nodule] Onset: 12-26-2022 05-11-2022 Episodic Other nervous system disorders (20 sources) Postoperative pain ; Translations: [Other acute postprocedural pain] Onset: 06-19-2021 06-29-2021 Episodic Pleurisy; pneumothorax; pulmonary collapse (11 sources) Atelectasis; Translations: [Atelectasis] Onset: 06-19-2021 Resolved: 06-28-2021 06-28-2021 Episodic Residual codes; unclassified (20 sources) History of cardioversion; Translations: [Other specified postprocedural states] Onset: 05-29-2021 05-29-2021 Episodic Residual codes; unclassified (20 sources) Family history of coronary arteriosclerosis; Translations: [Family history of ischemic heart disease and other diseases of the circulatory system] Onset: 05-28-2016 01-15-2023 Episodic Residual codes; unclassified (20 sources) Other specified health status; Translations: [Other specified conditions influencing health status] Onset: 05-28-2016 Resolved: 04-07-2024 01-15-2023 Episodic Results Test Name Value Interpretation Reference Range Facility ECG 12 leadon 01-06-2025 Ventricular Rate : 8 0 BPM Atrial Rate : 178 BPM QRS Duration : 150 ms Q-T Interval : 440 ms QTC Calculation(Bazett) : 507 ms Calculated R [place] : 62 degrees Calculated T [place] : 78 degrees UNDETERMINED RHYTHM COMPLETE RIGHT BUNDLE BRANCH BLOCK ABNORMAL ECG Confirmed by MONIKA GALLEGOS MD ([id number]) on 01/06/2025 3:58:22 PM NAME : BRITTA TORRES PID : [id number] : 1945 Gender : Male Race : ORD : [id number] Procedure Date : Jan 05 2025 07:57:27 Edit Date : Jan 06 2025 16:01:05 Diagnosis: UNDETERMINED RHYTHM COMPLETE RIGHT BUNDLE BRANCH BLOCK ABNORMAL ECG Confirmed by MONIKA GALLEGOS MD ([id number]) on 01/06/2025 3:58:22 PM Test Reason : I48.20 Chronic a-fib (HCC) Location : 192 : AVCRD Overread By : MONIKA GALLEGOS MD Edited By : MONIKA GALLEGOS MD Referred By : , Acquired by : , [facility] Radiology, RadiologistMD - 01/06/2025 Ventricular Rate : 80 BPM Atrial Rate : 178 BPM QRS Duration : 150 ms Q-T Interval : 440 ms QTC Calculation(Bazett) : 507 ms Calculated R [place] : 62 degrees Calculated T [place] : 78 degrees UNDETERMINED RHYTHM COMPLETE RIGHT BUNDLE BRANCH BLOCK ABNORMAL ECG Confirmed by MONIKA GALLEGOS MD ([id number]) on 01/06/2025 3:58:22 PM NAME : BRITTA TORRES PID : [id number] : 1945 Gender : Male Race : ORD : [id number] Procedure Date : Jan 05 2025 07:57:27 Edit Date : Jan 06 2025 16:01:05 Diagnosis: UNDETERMINED RHYTHM COMPLETE RIGHT BUNDLE BRANCH BLOCK ABNORMAL ECG Confirmed by MONIKA GALLEGOS MD ([id number]) on 01/06/2025 3:58:22 PM Test Reason : I48.20 Chronic a-fib (HCC) Location : 192 : AVCRD Overread By : MONIKA GALLEGOS MD Edited By : MONIKA GALLEGOS MD Referred By : , Acquired by : , [facility] [employer] ECG 12 leadOrdered By: Radio logist Radiology on 01-06-2025 [facility] [employer] Work Phone: [facility] 01-05-2025 OV Office Visit (CARDAV ) BRITTA TORRES ([id number]) 1945 M Date Time Provider Department 01/05/25 8:00 AM PATRICIA ARCHER During your visit today, we recorded the following information about you: Pulse Blood pressure Weight 80/minute 128/72 76.8 kg Patricia Archer, [facility] 01/05/2025 8:38 AM Signed [facility] Department of Cardiovascular Medicine SECTION OF CLINICAL CARDIOLOGY OUTPATIENT VISIT DATE January 05, 2025 OUTPATIENT VISIT TYPE ESTABLISHED PRIMARY CARE PHYSICIAN: Austen Ontiveros MD [address] [place] [address] [address] [place] [address] CHIEF COMPLAINT: Follow up HISTORY OF PRESENT ILLNESS: Mr. Torres is a 79 year old male patient of Dr. Goldberg and Dr. Bagley [facility] permanent atrial fibrillation, CAD (: s/p CABG x3, PECK to LAD, SVG to PDA, left radial artery to the obtuse marginal 1, TV repair with a ring, AVR with edward inspiris valve, left atrial appendage clip, cryo maze), hypertension, hyperlipidemia, saddle cutter anticoagulation, anemia who presents today for a cardiovascular medicine follow-up visit. In October he had a syncopal episode. He was sitting on the couch and jumped up quickly and ran to take the garbage out and felt dizzy and passed out for seconds. This was after he had just taken his albuterol. Another time he was lifting heavy weights for the tractor and went to walk and passed out. He was advised to the go to the ER but refused. Zio revealed atrial flutter 100% of the time. Avg Hr 81 BPM. 1 pause 3.3 s. Most triggered events were reasonably controlled HR. Today, he is very active. Can bike 20 miles without difficult He denies . 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 aspirin, enteric coated (ADULT LOW DOSE ASPIRIN) [...] VITAMIN ORAL) Take by mouth once daily. [place]-3 Fatty Acids-Vitamin E 1,000 mg cap Take 1 capsule by mouth twice daily. apixaban (ELIQUIS) 5 mg tab(s) Take 1 tablet by mouth two times a day. bisoprolol (ZEBETA) 10 mg tablet Take 1 tablet by mouth two times a day. rosuvastatin (CRESTOR) 10 mg tablet Take 1 tablet by mouth once daily. prednisoLONE acetate (PRED FORTE) 1 % ophthalmic suspension USE DIRECTED BY PHYSICIAN, IN OPERATIVE EYE, BEGINNING ONE DAY AFTER SURGERY keTORolac (ACULAR) 0.5 % ophthalmic solution USE DIRECTED BY PHYSICIAN, IN OPERATIVE EYE, BEGINNING ONE DAY AFTER SURGERY (Patient not taking: Reported on 01/05/2025) CARDIOVASCULAR MEDICINE TESTIN12/22/24 zio Enrollment Dates: 11/27/2024-12/11/2024 IRHYTHM FINDINGS: Atrial Flutter occurred con (more content not included)... Normal [facility] CNOVon 11-27-2024 CNOV Office Visit (CARDAV ) BRITTA TORRES ([id number]) 1945 Date Time Provider Department 11/27/24 8:30 AM NURSE CARD [facility] RUCHI MAYERS During your visit today, we recorded the following information about you: Ana Jaramillo RN 11/27/2024 8:43 AM Signed EVENT MONITOR DISPOSABLE PATCH INSTRUCTIONS Patient Name: Britta [facility] Number: [id number] Skin prepped and cleansed with alcohol Patch secured to prepped area Monitor Activated Serial #: [id number] Patient Instructed: Prescribed order timeframe Bathing guidelines Usage of event button and diary documentation Return of monitor at the end of prescribed order Call with problems [phone] or [phone]. [phone] Patient expresses a good understanding of instructions Ana Jaramillo RN [id number] Allergies As of Date: 11/27/2024 Noted Allergy Reaction DECONAMINE (CHLORPHENIRAMINE-PSEU *07/20/2013 16 - Unknown NIASPAN (NIACIN) 07/20/2013 16 - Unknown PSEUDOEPHEDRINE 12/26/2022 16 - Unknown Comments: Other Reaction(s): Urinary Retention SULFAMETHOXAZOLE-TRIME THOPRIM 07/20/2013 16 - Unknown Date Reviewed: 10/09/2024 Reviewed by: Cotton, Meche, OCCA - Fully Assessed Reason for Visit: Nurse Visit [792] Primary Visit Diagnosis:Syncope, unspecified syncope type [R55] Prescriptions as of 11/27/2024 - cholecalciferol, vitamin D3, (VITAMIN D3 ORAL) Take by mouth. - apixaban (ELIQUIS) 5 mg tab(s) Take [...] ORAL) Take by mouth once daily. - [place]-3 Fatty Acids-Vitamin E 1,000 mg cap Take 1 capsule by mouth twice daily. Problem List As Of Date 11/27/2024 Noted Resolved Chronic a-fib (HCC) [I48.20] 05/18/2013 Pulmonary hypertension [I27.20] 05/18/2013 HTN (hypertension) [I10] 11/23/2013 SRIVASTAVA (dyspnea on exertion) [R06.09] 03/30/2021 Lower urinary tract symptoms due to benign pros*06/12/2020 Discharge planning issues [Z75.8] 05/29/2021 Preop testing [Z01.818] 05/29/2021 06/28/2021 Aortic valve stenosis [I35.0] 05/29/2021 Tricuspid regurgitation [I07.1] 05/29/2021 Coronary artery disease involving coronary bypa*05/29/2021 History of cardioversion [Z92.89] 05/29/2021 Hyperlipidemia [E78.5] 05/29/2021 Atelectasis [J98.11] 06/19/2021 06/28/2021 Postoperative hypotension [I95.81] 06/19/2021 06/21/2021 Cardiac insufficiency following cardiac surgery*06/19/2021 06/26/2021 Postoperative pain [G89.18] 06/19/2021 Stress hyperglycemia [R73.9] 06/20/2021 06/26/2021 Hypervolemia [E87.70] 06/20/2021 06/26/2021 FELISA (acute kidney injury) (HCC) [N17.9] 06/22/2021 Encounter for support and coordination of trans*06/26/2021 Permanent atrial fibrillation (HCC) [I48.21] 06/07/2023 Iron deficiency anemia, unspecified [D50.9] 06/13/2022 Paroxysmal A-fib (HCC) [I48.0] 10/09/2024 S/P AVR [Z95.2] 10/09/2024 Encounter Status:Closed by ANA JARAMILLO on 11/27/24 [facility] 11-04-2024 CNPN Telephone (CARDAV) BRITTA TORRES ([id number]) 1945 M Date Time Provider Department 11/04/24 EVER GOLDBERG During your visit today, we recorded the following information about you: Amber Ko, RN 11/04/2024 3:40 PM Addendum Patient calling Dr. Goldberg regarding syncopal episode he had this morning running down the driveway with his trash cans so he didn't miss the garbage men. He felt dizzy and woke up on the ground after only a moment. His fall was witnessed and denies head injury. After his episode, he rode 17 miles on his bike without chest pain, sob or dizziness. Advised patient he should be checked out in the ER, he declines. On 11/02/24 he was diagnosed with bronchitis and placed on Cefuroxime and albuterol for 10 days. Current BP 126/74, HR 86. Patient reports feeling well. Patient is asking if he could decrease bisoprolol 10mg to 1.5 tablets per day preventatively. Patient phone: [phone] Pharmacy: [facility] [place] GO TO THE EMERGENCY ROOM OR CALL 911 IF: * You develop any new symptoms * Your condition worsens * You are concerned or anxious about your condition for any other reason. If you have any questions, call back. Agnes Reina RN 11/04/2024 3:52 PM Signed Spoke with patient. Feeling very well right now. No symptoms. Reiterated Dr. Lynch message to him regarding medications and monitor. Stressed the importance of going to the ER should he start having symptoms again. Will forward to scheduling to get him MAYANK appoint per Dr. Goldberg. Alycia Wilde 11/10/2024 3:08 PM Signed Spoke with patient - scheduled appointment with MAYANK Ladarius Beatty on 12/07 in [place]. Leslee Forman RN 11/16/2024 2:05 PM Signed Patient calling office asking why he hasn't received his ZIO patch monitor ordered on 11/04/2024. Please call patient with an update. Allergies As of Date: 11/04/2024 Noted Allergy Reaction DECONAMINE (CHLORPHENIRAMINE-PSEU *07/20/2013 16 - Unknown NIASPAN (NIACIN) 07/20/2013 16 - Unknown PSEUDOEPHEDRINE 12/26/2022 16 - Unknown Comments: Other Reaction(s): Urinary Retention SULFAMETHOXAZOLE-TRIME THOPRIM 07/20/2013 16 - Unknown Date Reviewed: 10/09/2024 Reviewed by: Meche Oleary OCCA - Fully Assessed Reason for Visit: syncopal episode [Other] Primary Visit Diagnosis:Heat syncope, initial encounter [T67.1XXA] Other Visit Diagnosis: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 [I25.810] Order(s):OUTSIDE VENDOR CARDIAC OUTPATIENT EXTENDED RHYTHM RECORDING (WITHOUT TELEMETRY) [[id number]] Order #: [id number]: 1 Prescriptions as of 11/16/2024 - cholecalciferol, vitamin D3, (VITAMIN D3 ORAL) Take by mouth. - apixaban (ELIQUIS) 5 mg tab(s) Take [...] ORAL) Take by mouth once daily. - [place]-3 Fatty Acids-Vitamin E 1,000 mg cap Take 1 capsule by mouth twice daily. Problem List As Of Date 11/04/2024 Noted Resolved Chronic a-fib (HCC) [I48.20] 05/18/2013 Pulmonary hypertension [I27.20] 05/18/2013 HTN (hypertension) [I10] 11/23/2013 SRIVASTAVA (dyspnea on exertion) [R06.09] 03/30/2021 Lower urinary tract symptoms due to benign pros*06/12/2020 Discharge planning issues [Z75.8] 05/29/2021 Preop testing [Z01.818] 05/29/2021 06/28/2021 Aortic valve stenosis [I35.0] 05/29/2021 Tricuspid regurgitation [I07.1] 05/29/2021 Coronary artery disease involving coronary bypa*05/29/2021 History of cardioversion [Z92.89] 05/29/2021 Hyperlipidemia [E78.5] 05/29/2021 Atelectasis [J98.11] 06/19/2021 06/28/2021 Postoperative hypotension [I95.81] 06/19/2021 06/21/2021 Cardiac insufficiency following cardiac surgery*06/19/2021 06/26/2021 Postoperative pain [G89.18] 06/19/2021 Stress hyperglycemia [R73.9] 06/20/2021 06/26/2021 Hypervolemia [E87.70] 06/20/2021 06/26/2021 FELISA (acute kidney injury) (HCC) [N17.9] 06/22/2021 Encounter for support and coordination of trans*06/26/2021 Permanent atrial fibrillation (HCC) [I48.21] 06/07/2023 Iron deficiency anemia (more content not included)... Normal [facility] [id number] 10-11-2024 Ventricular Rate : 8 3 BPM Atrial Rate : 83 BPM P-R Interval : 288 ms QRS Duration : 148 ms Q-T Interval : 428 ms QTC Calculation(Bazett) : 502 ms Calculated P [place] : 94 degrees Calculated R [place] : 42 degrees Calculated T [place] : 80 degrees SINUS RHYTHM WITH 1ST DEGREE AV BLOCK WITH PREMATURE ATRIAL COMPLEXES COMPLETE RIGHT BUNDLE BRANCH BLOCK ABNORMAL ECG Confirmed by MD BUCK ANISH ([id number]) on 10/11/2024 6:23:45 PM NAME : BRITTA TORRES PID : [id number] : 1945 Gender : Male Race : ORD : Procedure Date : Oct 09 2024 10:04:02 Edit Date : Oct 11 2024 18:23:46 Diagnosis: SINUS RHYTHM WITH 1ST DEGREE AV BLOCK WITH PREMATURE ATRIAL COMPLEXES COMPLETE RIGHT BUNDLE BRANCH BLOCK ABNORMAL ECG Confirmed by MD BUCK ANISH ([id number]) on 10/11/2024 6:23:45 PM Test Reason : Location : 192 : AVCRD Overread By : MD BUCK ANISH Edited By : MD BUCK ANISH Referred By : , Acquired by : , [facility], Radiologist, - 10/11/2024 Ventricular Rate : 83 BPM Atrial Rate : 83 BPM P-R Interval : 288 ms QRS Duration : 148 ms Q-T Interval : 428 ms QTC Calculation(Bazett) : 502 ms Calculated P [place] : 94 degrees Calculated R [place] : 42 degrees Calculated T [place] : 80 degrees SINUS RHYTHM WITH 1ST DEGREE AV BLOCK WITH PREMATURE ATRIAL COMPLEXES COMPLETE RIGHT BUNDLE BRANCH BLOCK ABNORMAL ECG Confirmed by MD BUCK ANISH ([id number]) on 10/11/2024 6:23:45 PM NAME : BRITTA TORRES PID : [id number] : 1945 Gender : Male Race : ORD : Procedure Date : Oct 09 2024 10:04:02 Edit Date : Oct 11 2024 18:23:46 Diagnosis: SINUS RHYTHM WITH 1ST DEGREE AV BLOCK WITH PREMATURE ATRIAL COMPLEXES COMPLETE RIGHT BUNDLE BRANCH BLOCK ABNORMAL ECG Confirmed by MD BUCK ANISH ([id number]) on 10/11/2024 6:23:45 PM Test Reason : Location : 192 : AVCRD Overread By : MD BUCK ANISH Edited By : MD BUCK ANISH Referred By : , Acquired by : , [facility] [id number] By: Radiologist Radiology on 10-11-2024 [facility] Work Phone: CNOVon 10-09-2024 CNOV Office Visit (CARDAV ) BRITTA TORRES ([id number]) 1945 M Date Time Provider Department 10/09/24 10:00 AM EVER GOLDBERG During your visit today, we recorded the following information about you: Pulse Blood pressure Weight Height 83/minute 126/56 77 kg 1.854 m Ever Goldberg V, MD 10/09/2024 10:42 AM Signed Referring Physician: No referring provider defined for this encounter. Primary Care Physician: Austen Ontiveros MD, MD [place] Torres is a 79 year old male that presents today for followup of : The patient is a 79-year-old male with a history of paroxysmal atrial fibrillation, hypercholesterolemia, and right bundle branch block, presenting for follow-up. The patient reports feeling well overall and denies experiencing any episodes of atrial fibrillation, chest pain, dyspnea, or lower extremity edema. He notes that he is not always in atrial fibrillation and is often in normal sinus rhythm when he checks. Even during episodes of atrial fibrillation, he does not experience any limitations in his activities. He walks 4.5 miles daily and monitors his heart rate, which increases to about 109 bpm during exercise and returns to approximately 80 bpm afterward. He wears compression socks regularly. He adheres to a low-sodium diet, although he occasionally consumes salty foods. His most recent cholesterol level was 59 mg/dL, showing improvement. [facility] for a blood workup, including monitoring due to his use of Eliquis. He is currently taking Crestor 10 mg daily, which he achieves by splitting a 20 mg tablet in half. Labs: - Cholesterol: 59 mg/dL (improved) Imaging: - (February) Echocardiogram: Normal cardiac function with mild pulmonary valve insufficiency and no significant aortic valve gradient Tests: - (Today) EKG: Sinus rhythm, first-degree AV block, premature atrial contractions, and right bundle branch block, stable findings 1. 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 Patient is ambulatory, walking 4.5 miles daily without limitations. - Continue current management. 2. S/P AVR (Z95.2) Post-operative status following aortic valve replacement is stable. Recent echocardiogram shows no significant gradient in the aortic valve. - Schedule follow-up echocardiogram in May. 3. Pulmonary hypertension (HCC) (I27.20) Intermittent pulmonary valve insufficiency noted on echocardiogram, but no significant hemodynamic compromise observed. - Continue monitoring. 4. Paroxysmal A-fib (HCC) (I48.0) Intermittent episodes of atrial fibrillation; currently in sinus rhythm as confirmed by EKG. No associated symptoms such as palpitations, chest pain, or dyspnea. - Continue current management. 5. Chronic diastolic (congestive) heart failure (HCC) (I50.32) Clinically stable. No reports of edema; patient is using compression stockings and adhering to a low-sodium diet. - Continue current management. 6. 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 No reported complications or side effects. - Continue Eliquis. - Ordered lab work to monitor anticoagulation status. Current Medications: Current Medications 10/09/2024 CARDIOVASCULAR Medication Dosage Pharm Subclass bisoprolol (ZEBETA) 10 mg tablet Take 2 tablets by mouth once daily. Beta Blockers Cardiac Selective rosuvastatin (CRESTOR) 10 mg tablet Take 1 tablet by mouth once daily. Antihyperlipidemic - HMG CoA Reductase Inhibitors (statins) ANTI-PLATELET THERAPIES Medication Dosage Pharm Subclass aspirin, enteric coated (ADULT LOW DOSE ASPIRIN) 81 mg EC tablet Take 1 tablet by mouth every other day. Salicylate Analgesics ANTICOAGULANTS Medication Dosage Pharm Subclass apixaban (ELIQUIS) 5 mg tab(s) Take 1 tablet by mouth two times a day. Direct Factor Xa Inhibitors ASPIRIN Medication Dosage Pharm Subclass aspirin, enteric coated (ADULT LOW DOSE ASPIRIN) 81 mg EC tablet Take 1 tablet by mouth every other day. Salicylate Analgesics OTHER Medication Dosage Pharm Subclass CALCIUM CARBONATE/VITAMIN D3 (VITAMIN D-3 ORAL) Take 2,000 Units by mouth twice daily. Minerals and Electrolytes - Calcium Replacement/Vitamin D Combinations cholecalciferol, vitamin D3, (VITAMIN D3 ORAL) Take by mouth. Vitamins - D Derivatives ferrous sulfate (IRON ORAL) Take by mouth. Minerals and Electrolytes - Iron keTORolac (ACULAR) 0.5 % ophthalmic solution USE DIRECTED BY PHYSICIAN, IN OPERATIVE EYE, BEGINNING ONE DAY AFTER SURGERY Ophthalmic - Anti-inflammatory, NSAIDs montelukast 10 mg tablet Take 10 mg by mouth daily at bedtime. Asthma Therapy - Leukotriene Receptor Antagonists MULTIVIT ANDMINERALS/FERROUS FUM (MULTI VITAMIN ORAL) Take by mouth once (more content not included)... Normal [facility] [id number] 10-09-2024 ECG01 Ventricular Rate : 8 3 BPM Atrial Rate : 83 BPM P-R Interval : 288 ms QRS Duration : 148 ms Q-T Interval : 428 ms QTC Calculation(Bazett) : 502 ms Calculated P [place] : 94 degrees Calculated R [place] : 42 degrees Calculated T [place] : 80 degrees SINUS RHYTHM WITH 1ST DEGREE AV BLOCK WITH PREMATURE ATRIAL COMPLEXES COMPLETE RIGHT BUNDLE BRANCH BLOCK ABNORMAL ECG Confirmed by MD HEBER, [facility] ([id number]) on 10/11/2024 6:23:45 PM NAME : BRITTA TORRES PID : [id number] : 1945 Gender : Male Race : ORD : Procedure Date : Oct 09 2024 10:04:02 Edit Date : Oct 11 2024 18:23:46 Diagnosis: SINUS RHYTHM WITH 1ST DEGREE AV BLOCK WITH PREMATURE ATRIAL COMPLEXES COMPLETE RIGHT BUNDLE BRANCH BLOCK ABNORMAL ECG Confirmed by MD BUCK ANISH ([id number]) on 10/11/2024 6:23:45 PM Test Reason : Location : 192 : AVCRD Overread By : MD BUCK ANISH Edited By : MD BUCK ANISH Referred By : , Acquired by : , Normal [facility] Radiology Study observation (narrative) [facility] [place] 07-29-2024 L -- ---- Specimen: [id number] Received: 07/29/24 Status: VIVEK Henley Num: [id number] Spec Type: Surgical Subm Dr: Walker Edge MD Tissues: A Skin-Other than Cyst, tag, debridement or plastic repair (RT LEG) Procedures: PATRICK/Naila Vila/Hazel Chan ---- Age/ Patient Sex Location Account Attending Physician ---- Britta Torres/Jojo IA [id number] Walker Edge MD ---- SPEC NUM: [id number] RECD: 07/29/24 STATUS: VIVEK HENLEY NUM: [id number] OLESYA: 07/29/24 [facility] DR: Walker Edge MD ENTERED: 07/29/24 [facility] DR: JEREMIAH TYPE: Surgical DEPT: S ENTERED BY: [id number] RECV BY: [id number] ORDERED: HE/2, Gross/Micro L4 ORDERED: HE/2, Gross/Micro L4 Pathological Diagnosis Skin lesion, right lower leg, reexcision: Changes consistent with previous biopsy site. No evidence of residual malignancy. 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 Eccentrically located on the skin is a whitney-pink smooth area, 0.4 x 0.3 cm that is outlined by a circumferential rim of blue dye and situated 0.3 cm from the closest margin. Serial sections reveal yellow-torre, glistening, and uniform cut surfaces with a deep margin situated 0.3 cm from the smooth area. The polar tips are submitted intact in cassette A1 with the serially section center the specimen submitted in A2. (2, ns, [id number]) CPT Codes 53891 ---- ---- Specimen: [id number] Received: 07/29/24 Status: VIVEK Henley Num: [id number] Spec Type: Surgical Subm Dr: Walker Edge MD Tissues: A Skin-Other than Cyst, tag, debridement or plastic repair (RT LEG) Procedures: HE/2, Gross/Micro L4 ---- Patient: ToniBritta T [id number] (Continued) ---- Signed (signature on file) Cira Kaye MD 07/30/241511 Normal [facility] Laboratory - Cytologyon 07-08 Pathologist Cyto stain Nom (Cvx/Vag) [ID] [facility] Comment on above: Ishaan Peña MD Board certified in Dermatopathology and Anatomic Pathology (electronic signature). For questions regarding this report call [facility] at [phone]. Laboratory - Specimen inform ationon 07-20-2024 Specimen source Nom (Unsp spec) LOWER CALF [facility] Specimen source Nom (Unsp spec) UPPER CALF [facility] No Panel Informationon 07-20 A CLINICAL IMPRESSION CANCELED [facility] Comment on above: Result canceled by t he ancillary. B CLINICAL IMPRESSION CANCELED [facility] Comment on above: Result canceled by t he ancillary. Clinical information Vial 1 - 4 mm; Vial 2 - 4 mm [facility] Pathology report comments [Interpretation] Narrative CANCELED [facility] Comment on above: Result canceled by t he ancillary. Pathology report final diagnosis Narrative IRRITATED HYPERPLASTIC ACTINIC KERATOSIS [facility] Pathology report gross observation Narrative [facility] Comment on above: Received in 10% neut ral buffered formalin is a biopsy of tissue measuring 5 x 5 x 2 mm. It was bisected and submitted into 1 tissue block. Received in 10% neut ral buffered formalin is a biopsy of tissue measuring 5 x 4 x 2 mm. It was bisected and submitted into 1 tissue block. This gross description meets regulatory standards for positive identification using two patient identifiers. /amk/is Pathology report microscopic observation Narrative Other stain [facility] Comment on above: Portions of the epid ermis display variable acanthosis with cytologic atypia and maturation disarray. Proliferative buds of atypical epithelium originate from the basal layer and extend into an elastotic dermis. There is associated hypogranulosis and overlying parakeratosis. Portions of the epid ermis display variable acanthosis with cytologic atypia and maturation disarray. Proliferative buds of atypical epithelium originate from the basal layer and extend into an elastotic dermis. There is associated hypogranulosis and overlying parakeratosis. /cat Procedure type PUNCH [facility] Report type CANCELED [facility] Comment on above: Result canceled by t he ancillary. FASTING:UNKNOWN FASTING: UNKNOWN [facility] Performing Organization Information Site ID: [id number] Name: [facility] Address: [address], [address] [place] [address] Director: Veronica Gibbs MD [facility] TISSUE PATHOLOGYon CLINICAL INFORMATION [facility] Comment on above: Order Comment: FASTI NG:UNKNOWN FASTING: UNKNOWN Result Comment: Vial 1 - 4 mm; Vial 2 - 4 mm Performed By: #### 3 542 #### [facility] [address], [place] [address] Wellness Nurse Rn: Veronica Gibbs MD Pathologist Cyto stain Nom (Cvx/Vag) [ID] Normal [facility] Comment on above: Order Comment: JOHN NG:UNKNOWN FASTING: UNKNOWN Result Comment: Conrado Peña MD Board certified in Dermatopathology and Anatomic Pathology (electronic signature). For questions regarding this report call [facility] at [phone]. Performed By: #### 3 542 #### [facility] [address], [place] [address] Wellness Nurse Rn: Veronica Gibbs MD TISSUE, 2 SPECIMENSon 2024 A DIAGNOSIS Normal [facility] Comment on above: Result Comment: IRRITATED HYPERPLASTIC ACTINIC KERATOSIS Performed By: #### 3 542 #### [facility] [address], [place] [address] Wellness Nurse Rn: Veronica Gibbs MD A GROSS DESCRIPTION Normal [facility] Comment on above: Result Comment: Rece ived in 10% neutral buffered formalin is a biopsy of tissue measuring 5 x 5 x 2 mm. It was bisected and submitted into 1 tissue block. Performed By: #### 3 542 #### [facility] [address], [place] [address] Wellness Nurse Rn: Veronica Gibbs MD A MICRO DESCRIPTION Normal [facility] Comment on above: Result Comment: Port ions of the epidermis display variable acanthosis with cytologic atypia and maturation disarray. Proliferative buds of atypical epithelium originate from the basal layer and extend into an elastotic dermis. There is associated hypogranulosis and overlying parakeratosis. Performed By: #### 3 542 #### [facility] Diagnostics [address], [place] [address] Wellness Nurse Rn: Veronica Gibbs MD A PROCEDURE PUNCH [facility] Comment on above: Performed By: #### 3 542 #### [facility] [address], [place] [address] Wellness Nurse Rn: Veronica Owusu SOURCE [facility] Comment on above: Result Comment: SILVANA Pierre CALF Performed By: #### 3 542 #### [facility] [address], [place] [address] Wellness Nurse Rn: Veronica Rodriguez DIAGNOSIS [facility] Comment on above: Result Comment: IRRITATED HYPERPLASTIC ACTINIC KERATOSIS Performed By: #### 3 542 #### [facility] [address], [place] [address] Wellness Nurse Rn: Veronica Rodriguez GROSS DESCRIPTION [facility] Comment on above: Result Comment: Rece ived in 10% neutral buffered formalin is a biopsy of tissue measuring 5 x 4 x 2 mm. It was bisected and submitted into 1 tissue block. This gross description meets regulatory standards for positive identification using two patient identifiers. /amk/is Performed By: #### 3 542 #### [facility] [address], [place] [address] Wellness Nurse Rn: Veronica Rodriguez MICRO DESCRIPTION [facility] Comment on above: Result Comment: Port ions of the epidermis display variable acanthosis with cytologic atypia and maturation disarray. Proliferative buds of atypical epithelium originate from the basal layer and extend into an elastotic dermis. There is associated hypogranulosis and overlying parakeratosis. /cat Performed By: #### 3 542 #### [facility] [address], [place] [address] Wellness Nurse Rn: Veronica Rodriguez PROCEDURE PUNCH [facility] Comment on above: Performed By: #### 3 542 #### [facility] [address], [address] [place] [address] Wellness Nurse Rn: Veronica Gibbs MD B SOURCE [facility] Comment on above: Result Comment: UPPE R CALF Performed By: #### 3 542 #### [facility] [address] [facility], [address] [place] [address] Wellness Nurse Rn: Veronica Dias 06-18-2024 [facility] Telephone (CARDAV) BRITTA TORRES ([id number]) 1945 M Date Time Provider Department 06/18/24 AGNES REINA During your visit today, we recorded the following information about you: Agnes Reina RN 06/18/2024 4:40 PM Signed Information faxed to [facility] Allergies As of Date: 06/18/2024 Noted Allergy Reaction DECONAMINE (CHLORPHENIRAMINE-PSEU *07/20/2013 16 - Unknown NIASPAN (NIACIN) 07/20/2013 16 - Unknown PSEUDOEPHEDRINE 12/26/2022 16 - Unknown Comments: Other Reaction(s): Urinary Retention SULFAMETHOXAZOLE-TRIME THOPRIM 07/20/2013 16 - Unknown Date Reviewed: 06/15/2024 Reviewed by: Torri Hill, PRISCA - Fully Assessed Prescriptions as of 06/18/2024 - apixaban (ELIQUIS) 5 mg tab(s) Take [...] ORAL) Take by mouth once daily. - [place]-3 Fatty Acids-Vitamin E 1,000 mg cap Take 1 capsule by mouth twice daily. Problem List As Of Date 06/18/2024 Noted Resolved Chronic a-fib (HCC) [I48.20] 05/18/2013 Pulmonary hypertension [I27.20] 05/18/2013 HTN (hypertension) [I10] 11/23/2013 SRIVASTAVA (dyspnea on exertion) [R06.09] 03/30/2021 Lower urinary tract symptoms due to benign pros*06/12/2020 Discharge planning issues [Z75.8] 05/29/2021 Preop testing [Z01.818] 05/29/2021 06/28/2021 Aortic valve stenosis [I35.0] 05/29/2021 Tricuspid regurgitation [I07.1] 05/29/2021 Coronary artery disease involving pala meredith*05/29/2021 History of cardioversion [Z92.89] 05/29/2021 Hyperlipidemia [...] unspecified [D50.9] 06/13/2022 Encounter Status:Closed by AGNES REINA on 06/18/24 [facility] CNOVon 06-15-2024 CNOV Office Visit (CAEPAV ) BRITTA TORRES ([id number]) 1945 M Date Time Provider Department 06/15/24 12:20 PM DHARMESH BAGLEY CAEPAV During your visit today, we recorded the following information about you: Pulse Blood pressure Weight 55/minute 130/80 77.7 kg Dharmesh Bagley MD 06/15/2024 12:54 PM Signed Britta Torres is a 79-year-old man with chronic atrial fibrillation, status post CABG and aortic valve replacement. Over the last few months, bisoprolol was increased to the current dose of 20 mg daily and ventricular rate control is much improved. He has had no unexpected bleeding or excessive bruising on Eliquis and aspirin. My cardiology colleague Dr. 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 He walks 4 miles daily without exertional symptoms. Medications: Reviewed. Physical examination: He looks well. Blood pressure 130/80, pulse rate 78 and irregular. Lungs: No wheezes, rales or rhonchi. Heart: Fixed splitting of the second sound with accentuation of S2. Short systolic ejection murmur. Impression and plan: Continue current rate control and anticoagulation. I will see him again in 1 year. Allergies As of Date: 06/15/2024 Noted Allergy Reaction DECONAMINE (CHLORPHENIRAMINE-PSEU *07/20/2013 16 - Unknown NIASPAN (NIACIN) 07/20/2013 16 - Unknown PSEUDOEPHEDRINE 12/26/2022 16 - Unknown Comments: Other Reaction(s): Urinary Retention SULFAMETHOXAZOLE-TRIME THOPRIM 07/20/2013 16 - Unknown Date Reviewed: 06/15/2024 Reviewed by: Torri Hill RN - Fully Assessed Reason for Visit: Established Patient [175] Primary Visit Diagnosis:Atrial fibrillation, chronic (HCC) [I48.20] Prescriptions as of 06/15/2024 - apixaban (ELIQUIS) 5 mg tab(s) Take [...] ORAL) Take by mouth once daily. - [place]-3 Fatty Acids-Vitamin E 1,000 mg cap Take 1 capsule by mouth twice daily. Problem List As Of Date 06/15/2024 Noted Resolved Chronic a-fib (HCC) [I48.20] 05/18/2013 Pulmonary hypertension [I27.20] 05/18/2013 HTN (hypertension) [I10] 11/23/2013 SRIVASTAVA (dyspnea on exertion) [R06.09] 03/30/2021 Lower urinary tract symptoms due to benign pros*06/12/2020 Discharge planning issues [Z75.8] 05/29/2021 Preop testing [Z01.818] 05/29/2021 06/28/2021 Aortic valve stenosis [I35.0] 05/29/2021 Tricuspid regurgitation [I07.1] 05/29/2021 Coronary artery disease involving pala meredith*05/29/2021 History of cardioversion [Z92.89] 05/29/2021 Hyperlipidemia [...] anemia, unspecified [D50.9] 06/13/2022 Encounter Status:Closed by DHARMESH BAGLEY on 06/15/[address] [facility] Laboratory - Cytologyon 04-08 Pathologist Cyto stain Nom (Cvx/Vag) [ID] [facility] Comment on above: Ishaan Peña MD Board certified in Dermatopathology and Anatomic Pathology (electronic signature). For questions regarding this report call [facility] at [phone]. Laboratory - Specimen inform ationon 05-01-2024 Specimen source Nom (Unsp spec) NECK [facility] Specimen source Nom (Unsp spec) RIGHT LOWER LEG [facility] No Panel Informationon 05-01 A CLINICAL IMPRESSION CANCELED [facility] Comment on above: Result canceled by t he ancillary. B CLINICAL IMPRESSION CANCELED [facility] Comment on above: Result canceled by t he ancillary. Clinical information CANCELED [facility] Comment on above: Result canceled by t he ancillary. Pathology report comments [Interpretation] Narrative CANCELED [facility] Comment on above: Result canceled by t he ancillary. Pathology report final diagnosis Narrative IRRITATED/INFLAMED SEBORRHEIC KERATOSIS [facility] Pathology report final diagnosis Narrative WELL DIFFERENTIATED SQUAMOUS CELL CARCINOMA, KERATOACANTHOMA PATTERN [facility] Pathology report gross observation Narrative [facility] Comment on above: Received in 10% neut ral buffered formalin is a biopsy of tissue measuring 5 x 5 x 3 mm. It was bisected and submitted into 1 tissue block. Received in 10% neut ral buffered formalin is a biopsy of tissue measuring 5 x 5 x 4 mm. It was bisected and submitted into 1 tissue block. This gross description meets regulatory standards for positive identification using two patient identifiers. /bjm/is Pathology report microscopic observation Narrative Other stain [facility] Comment on above: The specimen display s variable acanthosis and papillomatosis with pseudohorncysts and overlying hyperkeratosis and parakeratosis. The acanthotic epidermis is focally spongiotic with whorled collections of keratinocytes. Within the underlying dermis, there are inflammatory infiltrates. The specimen display s the superficial portion of a keratin-filled crater with surrounding atypical, well differentiated squamous proliferation. /bj Procedure type BIOPSY [facility] Report type CANCELED [facility] Comment on above: Result canceled by seth amin ancillary. Performing Organization Information Site ID: [id number] [facility] Address: [address] [place] [address], [place] [address] Director: Veronica Gibbs MD [facility] TISSUE PATHOLOGYon Pathologist Cyto stain Nom (Cvx/Vag) [ID] [facility] Comment on above: Result Comment: Conrado Peña MD Board certified in Dermatopathology and Anatomic Pathology (electronic signature). For questions regarding this report call [facility] at [phone]. Performed By: #### 3 542 #### [facility] [address], [address] [place] [address] Wellness Nurse Rn: Veronica Gibbs MD TISSUE, 2 SPECIMENSon 2023 A DIAGNOSIS [facility] Comment on above: Result Comment: IRRITATED/INFLAMED SEBORRHEIC KERATOSIS Performed By: #### 3 542 #### [facility] [address], [address] [place] [address] Wellness Nurse Rn: Veronica Gibbs MD A GROSS DESCRIPTION [facility] Comment on above: Result Comment: Rece ived in 10% neutral buffered formalin is a biopsy of tissue measuring 5 x 5 x 3 mm. It was bisected and submitted into 1 tissue block. Performed By: #### 3 542 #### [facility] [address], [address] Wellness Nurse Rn: Veronica Owusu MICRO DESCRIPTION [facility] Comment on above: Result Comment: The specimen displays variable acanthosis and papillomatosis with pseudohorncysts and overlying hyperkeratosis and parakeratosis. The acanthotic epidermis is focally spongiotic with whorled collections of keratinocytes. Within the underlying dermis, there are inflammatory infiltrates. Performed By: #### 3 542 #### [facility] [address], [address] Wellness Nurse Rn: Veronica Owusu PROCEDURE BIOPSY [facility] Comment on above: Performed By: #### 3 542 #### [facility] [address], [address] Wellness Nurse Rn: Veronica Owusu SOURCE [facility] Comment on above: Result Comment: NECK Performed By: #### 3 542 #### [facility] [address], [place] [phone] Wellness Nurse Rn: Veronica Rodriguez DIAGNOSIS [facility] Comment on above: Result Comment: WELL DIFFERENTIATED SQUAMOUS CELL CARCINOMA, KERATOACANTHOMA PATTERN Performed By: #### 3 542 #### [facility] [address], [address] Wellness Nurse Rn: Veronica Rodriguez GROSS DESCRIPTION [facility] Comment on above: Result Comment: Rece ived in 10% neutral buffered formalin is a biopsy of tissue measuring 5 x 5 x 4 mm. It was bisected and submitted into 1 tissue block. This gross description meets regulatory standards for positive identification using two patient identifiers. /bjm/is Performed By: #### 3 542 #### [facility] [address], [place] [address] Wellness Nurse Rn: Veronica Rodriguez MICRO DESCRIPTION [facility] Comment on above: Result Comment: The specimen displays the superficial portion of a keratin-filled crater with surrounding atypical, well differentiated squamous proliferation. /bjm Performed By: #### 3 542 #### [facility] [address], [address] [place], [place] [id number] Wellness Nurse Rn: Veronica Rodriguez PROCEDURE BIOPSY [facility] Comment on above: Performed By: #### 3 542 #### [facility] [address], [place] [address] Wellness Nurse Rn: Veronica Rodriguez SOURCE [facility] Comment on above: Result Comment: RIGH T LOWER LEG Performed By: #### 3 542 #### [facility] [address], [place] [address] Wellness Nurse Rn: Veronica Gibbs MD ALL LIPID PROFILE (FASTING)o n 03-27-2024 CHOL HDL RATIO 2.2 [facility] Comment on above: 3.3 - 4.4 LOW RISK 4.4 - 7.1 AVERAGE RISK 7.1 - 11.0 MODERATE RISK >11.0 HIGH RISK Cholesterol [Mass/Vol] 126 mg/dL NINF - 200 mg/dL [facility] Cholesterol in HDL [Mass/Vol] 56 mg/dL 40 - 60 mg/dL [facility] Comment on above: > or =60 mg/dl - LOW CARDIOVASCULAR RISK <40 mg/dl - HIGH CARDIOVASCULAR RISK Magnesium [Mass/Vol] 59.4 mg/dL [facility] Comment on above: <100 mg/dl OPTIMAL 100-129 mg/dl NEAR OR ABOVE OPTIMAL 130-159 mg/dl BORDERLINE HIGH 160-189 mg/dl HIGH >190 mg/dl VERY HIGH Magnesium [Mass/Vol] 10.6 mg/dL [facility] Triglyceride [Mass/Vol] 53 mg/dL NINF - 150 mg/dL [facility]CF CMP (CMP) (FOR REMOTE FH C USE)on 03-27-2024 Albumin [Mass/Vol] 3.5 g/dL 3.4 - 5.0 g/dL [facility] ALBUMIN GLOBULIN RATIO 1.0 [facility] ALP [Catalytic activity/Vol] 114 U/L 46 - 116 U/L [facility] ALT [Catalytic activity/Vol] 32 U/L 16 - 63 U/L [facility] Anion gap [Moles/Vol] 11.1 mmol/L [facility] AST [Catalytic activity/Vol] 34 U/L 15 - 37 U/L [facility] Bilirubin [Mass/Vol] 1.1 mg/dL High 0.2 - 1 .0 mg/dL [facility] Calcium [Mass/Vol] 9.1 mg/dL 8.5 - 10. 1 mg/dL [facility] Chloride [Moles/Vol] 103 mmol/L 98 - 10 7 mmol/L [facility] CO2 [Moles/Vol] 30.2 mmol/L 21.0 - 32.0 mmol/L [facility] Creatinine [Mass/Vol] 0.89 mg/dL 0.70 - 1.30 mg/dL [facility] GFR/1.73 sq M.predicted CKD-EPI (S/P/Bld) [Vol rate/Area] >60 60 - PINF [facility] Globulin (S) [Mass/Vol] 3.4 g/dL [facility] Glucose [Mass/Vol] 92 mg/dL 74 - 106 mg/dL [facility] Interpretation and review of laboratory results Abnormal [facility] Potassium [Moles/Vol] 4.3 mmol/L 3.5 - 5.1 mmol/L [facility] Protein [Mass/Vol] 6.9 g/dL 6.4 - 8.2 g/dL [facility] Sodium [Moles/Vol] 140 mmol/L 136 - 145 mmol/L [facility] TBH EGFR-NON AF [place] >60 60 - PINF [facility] Urea nitrogen [Mass/Vol] 23.0 mg/dL High 7.0 - 18.0 mg/dL [facility] Urea nitrogen/Creatinine [Mass ratio] 25.8 mg/mg [facility] No [facility] Tele[facility] (CARDAV) BRITTA TORRES ([id number]) 1945 M Date Time Provider Department 03/19/24 PATRICIA ARCHER During your visit today, we recorded the following information about you: Sowmya Kelley 03/19/2024 3:24 PM Signed Britta is calling Patricia Archer APRN.[facility] today saying that the 3 prescriptions sent on 03/16/24 went to the wrong pharmacy. Meds is for his but Britta's have to go to [place]. [facility] fax [phone]. Please advise. Patient has been identified by name and birthdate. Duration of symptoms: N/A Person calling: self Call patient at: on cell [phone] (home) [phone] (cell) Was an appointment scheduled: No Closing statement: Results or non-symptom based questions: Thank you for calling [facility], your call will be returned within the next business day. - Sowmya Dunn - Grazyna Bucio RN 03/19/2024 3:38 PM Signed Pended scripts, [...] mouth once daily. Authorizing Provider: BRANDY MCKEON APRN.Grazyna Bledsoe RN 03/19/2024 3:55 PM Signed Scripts faxed to number provided with confirmation. Called patient and updated him, pt thankful Allergies As of Date: 03/19/2024 Noted Allergy Reaction DECONAMINE (CHLORPHENIRAMINE-PSEU *07/20/2013 16 - Unknown NIASPAN (NIACIN) 07/20/2013 16 - Unknown PSEUDOEPHEDRINE 12/26/2022 16 - Unknown Comments: Other Reaction(s): Urinary Retention SULFAMETHOXAZOLE-TRIME THOPRIM 07/20/2013 16 - Unknown Date Reviewed: 03/16/2024 Reviewed by: Torri Hill RN - Fully Assessed Reason for Visit: Medication Problem [65] Primary Visit Diagnosis:Current use of [facility] anticoagulation [Z79.01] Order(s):apixaban (ELIQUIS) 5 mg tab(s)Take 1 tablet by mouth two times a day.Disp: 180 tabletRfl: 3 bisoprolol (ZEBETA) 10 mg tabletTake 2 tablets by mouth once daily.Disp: 180 tabletRfl: 3 rosuvastatin (CRESTOR) 10 mg tabletTake 1 tablet by mouth once daily.Disp: 90 tabletRfl: 3 COMPLETE BLOOD COUNT [SQCBC] Order #: [id number] FUTURE Prescriptions as of 03/19/2024 - apixaban [...] ORAL) Take by mouth once daily. - [place]-3 Fatty Acids-Vitamin E 1,000 mg cap Take [...] regurgitation [I07.1] 05/29/2021 Coronary artery disease involving pala meredith*05/29/2021 History of cardioversion [Z92.89] 05/29/2021 Hyperlipidemia [...] ordered t (more content not included)... Normal [facility] CNOVon 03-16-2024 CNOV Office Visit (CARDAV ) BRITTA TORRES ([id number]) 1945 M Date Time Provider Department 03/16/24 9:00 AM PATRICIA ARCHER During your visit today, we recorded the following information about you: Pulse Blood pressure Weight 91/minute 132/78 76.6 kg Patricia Archer APRN.[facility] 03/16/2024 9:27 AM Signed [facility] Department of Cardiovascular Medicine SECTION OF CLINICAL CARDIOLOGY OUTPATIENT VISIT DATE March 16, 2024 OUTPATIENT VISIT TYPE ESTABLISHED PRIMARY CARE PHYSICIAN: Austen Ontiveros MD [address] [place] [address] CHIEF COMPLAINT: Follow up HISTORY OF PRESENT ILLNESS: Mr. Torres is a 78 year old male patient of Dr. Goldberg and Dr. Bagley [facility] of permanent atrial fibrillation (rate control strategy, [id number]: 2%), known CAD (: s/p CABG x3, PECK to LAD, SVG to PDA, left radial artery to the obtuse marginal 1, TV repair with a ring, AVR with edward inspiris valve, left atrial appendage clip, cryo maze), preserved LV systolic heart function (echo: 2021: EF 56%, pulmonary hypertension RVSP 49mmHg, LA severely dilated), hypertension, hyperlipidemia, [facility]p anticoagulation, anemia who presents today for a [...] or syncope. 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 [place]-3 Fatty Acids-Vitamin E 1,000 mg cap Take [...] or s (more content not included)... [facility] Telephone (INTMAL) BRITTA TORRES ([id number]) 1945 M Date Time Provider Department 03/16/24 PATRICIA ARCHER During your visit today, we recorded the following information about you: Mouna Gomze 03/16/2024 1:52 PM Signed Britta is [facility] today to request lab orders to be faxed over to [facility]. Please advise. Fax number: [phone] Patient has been identified by name and birthdate. Duration of symptoms: N/A Person calling: self Call patient at: at home [phone] (home) [phone] (cell) Was an appointment scheduled: No Closing statement: Results or non-symptom based questions: Thank you for calling [facility], your call will be returned within the next business day. Thank you, Torri Mendoza RN 03/16/2024 1:58 PM Signed Labs faxed with fax confirmation Allergies As of Date: 03/16/2024 Noted Allergy Reaction DECONAMINE (CHLORPHENIRAMINE-PSEU *07/20/2013 16 - Unknown NIASPAN (NIACIN) 07/20/2013 16 - Unknown PSEUDOEPHEDRINE 12/26/2022 16 - Unknown Comments: Other Reaction(s): Urinary Retention SULFAMETHOXAZOLE-TRIME THOPRIM 07/20/2013 16 - Unknown Date Reviewed: 03/16/2024 [...] ORAL) Take by mouth once daily. - [place]-3 Fatty Acids-Vitamin E 1,000 mg cap Take [...] regurgitation [I07.1] 05/29/2021 Coronary artery disease involving pala meredith*05/29/2021 History of cardioversion [Z92.89] 05/29/2021 Hyperlipidemia [...] Status:Closed by TORRI HILL on 03/16/[address] [facility] ECHOon 03-03-2024 Echocardiography Echocardiography Report: Transthoracic Echo [facility] Date of service: 03/03/2024 3:31:35 PM TESTER Ordering physician: EVER GOLDBERG V Indication: Routine [...] compared with the prior CC echocardiographic exam (more content not included)... Normal [facility] CNPNon 01-29-2024 CNPN Telephone (CARDAV) BRITTA TORRES ([id number]) 1945 M Date Time Provider Department 01/29/24 EVER GOLDBERG During your visit today, we recorded the following information about you: Sanaz Hurtado, RN 01/29/2024 11:06 AM Signed Pt has a [...] of Date: 01/29/2024 Noted Allergy Reaction DECONAMINE (CHLORPHENIRAMINE-PSEU *07/20/2013 16 - Unknown NIASPAN (NIACIN) 07/20/2013 16 - Unknown PSEUDOEPHEDRINE 12/26/2022 16 - Unknown Comments: Other Reaction(s): Urinary Retention SULFAMETHOXAZOLE-TRIME THOPRIM 07/20/2013 16 - Unknown Date Reviewed: 11/27/2023 Reviewed by: Jes Bains RN - Fully Assessed Reason for Visit: covid [...] ORAL) Take by mouth once daily. - [place]-3 Fatty Acids-Vitamin E 1,000 mg cap Take [...] regurgitation [I07.1] 05/29/2021 Coronary artery disease involving pala meredith*05/29/2021 History of cardioversion [Z92.89] 05/29/2021 Hyperlipidemia [...] Status:Closed by AGNES STEPHENS on 01/29/[address] [facility] IOL BIOMETRY W/ IOL CALC OD (RIGHT EYE)on 11-15-2023 [facility] Radiology Study observation (narrative) [facility] CC NT-PROBNP SERPL-MCNCon 0 08-09-2023 Interpretation and review of laboratory results Abnormal [facility] Natriuretic peptide B (Bld) [Mass/Vol] 1619 pg/mL High NINF - 450 pg/mL [facility] Specimen Type: BLOOD SPECIMEN Ordering Facility: [facility] Address: [address] [place] [address] Original [facility]ing [facility] LIPID PANEL, NONFASTINGon Cholesterol [Mass/Vol] 152 mg/dL Normal <200 [facility] Comment on above: Order Comment: Speci men Type: BLOOD SPECIMEN Ordering Facility: [facility] Address: [facility] [place] [address] Result Comment: <200 mg/dL, Desirable 200-239 mg/dL, Borderline high >239 mg/dL, High Performed By: #### L [facility], [address]6 #### [facility] CLIA [id number] [facility]. [address] OF [facility] HDL CHOLESTEROL, NF 57 mg/dL Normal >39 [facility] Comment on above: Order Comment: Arnol yee Type: BLOOD SPECIMEN Ordering Facility: [facility] Address: [address] [place] [address] Result Comment: 40-5 9 mg/dL, Acceptable >59 mg/dL, High: Negative risk factor for coronary heart disease <40 mg/dL, Low: Positive risk factor for coronary heart disease Performed By: #### L IPNF, [address]-5 #### [facility] CLIA [id number] [facility]. [address] OF [facility] LDL CHOLESTEROL, NF 82 mg/dL Normal <100 [facility] Comment on above: Order Comment: Arnol yee Type: BLOOD SPECIMEN Ordering Facility: [facility] Address: [address] [place] [address] Result Comment: <100 mg/dL, Optimal 100-129 mg/dL, Near optimal/above optimal 130-159 mg/dL, Borderline high 160-189 mg/dL, High >189 mg/dL, Very high Secondary prevention optimal LDL Cholesterol levels are recommended to be < 70 mg/dL Performed By: #### L IPNF, 34607-4 #### [facility] CLIA [id number] [address] [place] [address]. [address] OF [facility] LDL/HDL RATIO, NF 1.44 mg/dL Normal <2.54 [facility] Comment on above: Order Comment: Arnol yee Type: BLOOD SPECIMEN Ordering Facility: [facility] Address: [address] [place] [address] Result Comment: Refe rence: 1. National Cholesterol Education Program ATP III Guideline At-A-Glance Quick Desk Reference: National Heart, Lung, and Blood Spangle. National Institutes of Health. 2001: NIH Publication No. 01-3305. 2. An International Atherosclerosis Society position paper: global recommendations for the management of dyslipidemia: executive summary, Atherosclerosis. 2014: 232(2):410-413. Performed By: #### L IPNF, 49972-2 #### [facility] CLIA [id number] [facility] [place], [place] [id number] [place] [address] [place] NON HDL CHOL, NF 95 mg/dL Normal <130 [facility] Comment on above: Order Comment: Speci men Type: BLOOD SPECIMEN Ordering Facility: [facility] Address: [address] [place] [address] Result Comment: <130 mg/dL, Optimal 130-159 mg/dL, Near optimal/above optimal 160-189 mg/dL, Borderline high 190-219 mg/dL, High >219 mg/dL, Very high Secondary prevention optimal non HDL Cholesterol levels are recommended to be <100 mg/dL Performed By: #### L IPNF, 05638-1 #### [facility] CLIA [id number] [place] T CHOL/HDL RATIO NF 2.67 mg/dL Normal <5.10 [facility] Comment on above: Order Comment: Speci men Type: BLOOD SPECIMEN Ordering Facility: [facility] Address: [address] [place] [address] Performed By: #### L IPNF, 03050-0 #### [facility] CLIA [id number] [facility] [place] [address] [place] TRIGLYCERIDES, NF 66 mg/dL Normal <150 [facility]do Comment on above: Order Comment: Speci men Type: BLOOD SPECIMEN Ordering Facility: [facility] Address: [address] [place] [address] Result Comment: <150 mg/dL, Normal 150-199 mg/dL, Borderline high 200-499 mg/dL, High >499 mg/dL, Very high Performed By: #### L IPNF, 30748-7 #### [facility] CLIA [id number] [facility] [place] [address] [place] VLDL CHOLESTEROL, NF 13 mg/dL Normal <30 [facility] Comment on above: Order Comment: Speci men Type: BLOOD SPECIMEN Ordering Facility: [facility] Address: [address] [place] [address] Performed By: #### L IPNF, 76698-6 #### [facility] CLIA [id number] [facility] [place] [address] [place] Cholesterol [Mass/Vol] 152 mg/dL <200 mg/dL [facility] HDL Cholesterol, Nonfasting 57 mg/dL >39 mg/dL [facility] LDL Cholesterol, Nonfasting 82 mg/dL <100 mg/dL [facility] LDL/HDL Ratio, Nonfasting 1.44 mg/dL <2.54 mg/dL [facility] Non HDL Cholesterol, Nonfasting 95 mg/dL <130 mg/dL [facility] Total Chol/HDL Ratio, Nonfasting 2.67 mg/dL <5.10 mg/dL [facility] Triglycerides, Nonfasting 66 mg/dL <150 mg/dL [facility] VLDL Cholesterol, Nonfasting 13 mg/dL <30 mg/dL [facility] NT PRO BNPon 08-09-2023 Natriuretic peptide.B prohormone N-Terminal [Mass/Vol] 1619 pg/mL High <450 pg/mL [facility] NT-proBNP SerPl-mCncon 08-09 Natriuretic peptide.B prohormone N-Terminal [Mass/Vol] 1619 pg/mL High <450 [facility] Comment on above: Order Comment: Speci men Type: BLOOD SPECIMEN Ordering Facility: [facility] Address: [address] [place] [address] Performed By: #### L IP, 35352-6 #### [facility] CLIA [id number] [facility] [place] [address] [place] FERRITINon 10-09-2022 Ferritin [Mass/Vol] 83.0 ng/mL Normal 26.0-388.0 [facility] Comment on above: Performed By: #### F ETIBC, FERR #### [facility] [address] [address] [address] Tobias Murrieta IRON AND TIBCon 10-09-2022 % SATURATION 19.0 % Normal [facility] Comment on above: Performed By: #### F ETIBC, FERR #### [facility] [address] [place] [address] Dr. Tobias Murrieta Iron [Mass/Vol] 64.0 ug/dL Critically low 65.0-175.0 [facility] Comment on above: Performed By: #### F ETIBC, FERR #### [facility] [address] [place] [address] Dr. Tobias Murrieta TIBC DIRECT 337.0 ug/dL Normal 250.0-450.0 [facility] Comment on above: Performed By: #### F ETIBC, FERR #### [facility] [address] [place] [address] Dr. Tobias Murrieta HEMOGLOBIN AND HEMATOCRITon 07-10-2022 Hematocrit (Bld) [Volume fraction] 36.8 % Critically low 42.0-54.0 [facility] Comment on above: Performed By: #### H GBHCT #### [facility] [address] [place] [address] Dr. Tobias Murrieta Hemoglobin (Bld) [Mass/Vol] 12.0 g/dL Critically low 14.0-18.0 [facility] Comment on above: Performed By: #### H GBHCT #### [facility] [address] [place] [address] Dr. Tobias Murrieta IRON AND TIBCon 07-10-2022 % SATURATION 25.5 % Normal [facility] Comment on above: Performed By: #### T OTIBC, FERR #### [facility] [address] [place] [address] Dr. Tobias Murrieta Iron [Mass/Vol] 81.0 ug/dL Normal 65.0-175.0 [facility] Comment on above: Performed By: #### T OTIBC, FERR #### [facility] [address] [place] [address] Dr. Tobias Murrieta TIBC DIRECT 318.0 ug/dL Normal 250.0-450.0 [facility] Comment on above: Performed By: #### T OTIBC, FERR #### [facility] [address] [place] [address] Dr. Tobias Murrieta Outside Colonoscopyon 2021 Outside Colonoscopy [id number] 20 [id number]#1.0 0CD:127 Normal [facility] Reminderson 06-14-2022 Reminders - From: Ree Knutson LPN To: N - Clinical; Sent: 06/14/2022 09:22:28 EST Show up: 05/14/2032 07:00:00 EST Subject: colonoscopy recall Due Date/Time: 06/13/2032 07:00:00 EST Reminder/Recall Patient is due for screening colonoscopy 06/13/2032. Normal [facility] Lab Reportson 06-11-2022 Lab Reports [id number]#1.0 0CD:127 Normal [facility]on SARS-CoV-2 (COVID-19) RNA HAROON+probe Ql (Unsp spec) Not detected Normal NOT DETECTED [facility] Comment on above: Result Comment: This test is not yet approved or cleared by the [place] FDA. When there are no FDA-approved or cleared tests available, and other criteria are met, FDA can make tests available under an emergency access mechanism called an Emergency Use Authorization (EUA). The EUA for this test is supported by the [place] of Health and Human Service's (HHS's) declaration [...] consistent with SARS-CoV-2. Performed By: #### C [facility] #### [facility] [address] [place] [address] Dr. Tobias Murrieta Consultation Noteon 05-24-20 Consultation Note [id number]. 00CD:127 Normal [facility] Formson 05-24-2022 Forms [id number]#1.0 0CD:127 Normal [facility] Consent for Procedure/Surger tanner 05-23-2022 Consent for Procedure/Surgery [id number] 0CD:127 Normal [facility] Ambulatory Visit Summaryon 1 07-22-2021 Ambulatory Visit Summary BRITTA TORRES :1945 [...] Tricuspid stenosis, non-rheumatic Vitamin D deficiency Normal [facility] Physician Referralon 022 Physician Referral [id number]#1.0 0CD:127 Normal [facility] CBC AUTO DIFFon 04-25-2022 BASO # 0.0 103/ul Normal 0.0-0.1 [facility] Comment on above: Performed By: #### C BC #### [facility] [address] [address] [address] Tobias Murrieta Basophils/100 WBC (Bld) 0.3 % Normal 0.2-2.0 [facility] Comment on above: Performed By: #### C BC #### [facility] [address] [place] [address] Dr. Tobias Murrieat EO # 0.2 103/ul Normal 0.0-0.7 [facility] Comment on above: Performed By: #### C BC #### [facility] [address] [place] [address] Dr. Tobias Murrieta Eosinophils/100 WBC (Bld) 3.0 % Normal 0.9-7.0 [facility] Comment on above: Performed By: #### C BC #### [facility] [address] [place] [address] Dr. Tobias Murrieta Erythrocyte distribution width (RBC) [Ratio] 13.2 % Normal 11.0-15.0 [facility] Comment on above: Performed By: #### C BC #### [facility] [address] [place] [address] Dr. Tobias Murrieta Hematocrit (Bld) [Volume fraction] 40.2 % Critically low 42.0-54.0 [facility] Comment on above: Performed By: #### C BC #### [facility] [address] [place] [address] Dr. Tobias Murrieta Hemoglobin (Bld) [Mass/Vol] 12.8 g/dL Critically low 14.0-18.0 [facility] Comment on above: Performed By: #### C BC #### [facility] [address] [place] [address] Dr. Tobias Murrieta IG # 0.01 10e3/ul Normal 0.00-0.03 [facility] Comment on above: Performed By: #### C BC #### [facility] [address] [place] [address] Dr. Tobias Murrieta IG % 0.2 % Normal 0.0-0.5 [facility] Comment on above: Performed By: #### C BC #### [facility] [address] [place] [address] Dr. Tobias Murrieta LYMPH # 2.0 103/ul Normal 1.2-3.8 [facility] Comment on above: Performed By: #### C BC #### [facility] [address] [place] [address] Dr. Tobias Murrieta Lymphocytes/100 WBC (Bld) 34.1 % Normal 20.5-60.0 [facility] Comment on above: Performed By: #### C BC #### [facility] [address] [place] [address] Dr. Tobias Murrieta MANUAL DIFF REQ NO Normal [facility] Comment on above: Performed By: #### C BC #### [facility] [address] [place] [address] Dr. Tobias Murrieta MCH (RBC) [Entitic mass] 29.3 pg Normal 25.9-34.0 [facility] Comment on above: Performed By: #### C BC #### [facility] [address] [place] [address] Dr. Tobias Murrieta MCHC (RBC) [Mass/Vol] 31.8 g/dL Normal 29.9-35.2 [facility] Comment on above: Performed By: #### C BC #### [facility] [address] [place] [address] Dr. Tobias Murrieta MCV (RBC) [Entitic vol] 92.0 fL Normal 80.0-94.0 [facility] Comment on above: Performed By: #### C BC #### [facility] [address] [place] [address] Dr. Tobias Murrieta MONO # 0.8 103/ul Normal 0.3-0.8 [facility] Comment on above: Performed By: #### C BC #### [facility] [address] [place] [address] Dr. Tobias Murrieta Monocytes/100 WBC (Bld) 13.9 % Critically high 1.7-12.0 [facility] Comment on above: Performed By: #### C BC #### [facility] [address] [place] [address] Dr. Tobias Murrieta NEUT # 2.9 103/ul Normal 1.4-6.5 [facility] Comment on above: Performed By: #### C BC #### [facility] [address] [address] [address] Tobias Murrieta Neutrophils/100 WBC (Bld) 48.5 % Normal 43.0-75.0 [facility] Comment on above: Performed By: #### C BC #### [facility] [address] [address] [address] Tobias Murrieta Platelet mean volume (Bld) [Entitic vol] 9.8 fL Normal 9.5-13.5 [facility] Comment on above: Performed By: #### C BC #### [facility] [address] [address] [address] Tobias Murrieta PLT 135 103/ul Critically low 150-450 [facility] Comment on above: Performed By: #### C BC #### [facility] [address] [place] [address] Dr. Tobias Murrieta RBC 4.37 106/ul Critically low 4.70-6.10 [facility] Comment on above: Performed By: #### C BC #### [facility] [address] [place] [address] Dr. Tobias Murrieta WBC 5.9 103/ul Normal 4.0-11.0 [facility] Comment on above: Performed By: #### C BC #### [facility] [address] [place] [address] Dr. Tobias Murrieta FERRITINon 04-25-2022 Ferritin [Mass/Vol] 72.0 ng/mL Normal 26.0-388.0 [facility] Comment on above: Performed By: #### T OTIBC, FERR #### [facility] [address] [place] [address] Dr. Tobias Murrieta IRONon 04-25-2022 Iron [Mass/Vol] 52.0 ug/dL Critically low 65.0-175.0 [facility] Comment on above: Performed By: #### I PEYTON #### [facility] [address] [place] [address] Dr. Tobias Murrieta TIBC ONLY- NO FEon 10-19-202 2 TIBC DIRECT 335.0 ug/dL Normal 250.0-450.0 [facility] Comment on above: Performed By: #### T OTIBC, FERR #### [facility] [address] [place] [address] Dr. Tobias Murrieta CBC AUTO DIFFon 01-24-2022 BASO # 0.0 103/ul Normal 0.0-0.1 [facility] Comment on above: Performed By: #### D ATCBC #### [facility] [address] [place] [address] Dr. Tobias Murrieta Basophils/100 WBC (Bld) 0.4 % Normal 0.2-2.0 [facility] Comment on above: Performed By: #### D ATCBC #### [facility] [address] [place] [address] Dr. Tobias Murrieta EO # 0.2 103/ul Normal 0.0-0.7 [facility] Comment on above: Performed By: #### D ATCBC #### [facility] [address] [place] [address] Dr. Tobias Murrieta Eosinophils/100 WBC (Bld) 4.1 % Normal 0.9-7.0 [facility] Comment on above: Performed By: #### D ATCBC #### [facility] [address] [place] [address] Dr. Tobias Murrieta Erythrocyte distribution width (RBC) [Ratio] 13.9 % Normal 11.0-15.0 [facility] Comment on above: Performed By: #### D ATCBC #### [facility] [address] [place] [address] Dr. Tobias Murrieta Hematocrit (Bld) [Volume fraction] 38.0 % Critically low 42.0-54.0 [facility] Comment on above: Performed By: #### D ATCBC #### [facility] [address] [place] [address] Dr. Tobias Murrieta Hemoglobin (Bld) [Mass/Vol] 12.5 g/dL Critically low 14.0-18.0 [facility] Comment on above: Performed By: #### D ATCBC #### [facility] [address] [address] [address] Tobias Murrieta IG # 0.00 10e3/ul Normal 0.00-0.03 [facility] Comment on above: Performed By: #### D ATCBC #### [facility] [address] [address] [address] Tobias Murrieta IG % 0.0 % Normal 0.0-0.5 [facility] Comment on above: Performed By: #### D ATCBC #### [facility] [address] [place] [address] Dr. Tobias Murrieta LYMPH # 2.2 103/ul Normal 1.2-3.8 [facility] Comment on above: Performed By: #### D ATCBC #### [facility] [address] [place] [address] Dr. Tobias Murrieta Lymphocytes/100 WBC (Bld) 46.1 % Normal 20.5-60.0 [facility] Comment on above: Performed By: #### D ATCBC #### [facility] [address] [place] [address] Dr. Tobias Murrieta MCH (RBC) [Entitic mass] 29.8 pg Normal 25.9-34.0 [facility] Comment on above: Performed By: #### D ATCBC #### [facility] [address] [place] [address] Dr. Tobias Murrieta MCHC (RBC) [Mass/Vol] 32.9 g/dL Normal 29.9-35.2 [facility] Comment on above: Performed By: #### D ATCBC #### [facility] [address] [place] [address] Dr. Tobias Murrieta MCV (RBC) [Entitic vol] 90.7 fL Normal 80.0-94.0 [facility] Comment on above: Performed By: #### D ATCBC #### [facility] [address] [place] [address] Dr. Tobias Murrieta MONO # 0.6 103/ul Normal 0.3-0.8 [facility] Comment on above: Performed By: #### D ATCBC #### [facility] [address] [address] [address] Tobias Murrieta Monocytes/100 WBC (Bld) 12.1 % Critically high 1.7-12.0 [facility] Comment on above: Performed By: #### D ATCBC #### [facility] [address] [address] [address] Tobias Murrieta NEUT # 1.8 103/ul Normal 1.4-6.5 [facility] Comment on above: Performed By: #### D ATCBC #### [facility] [address] [place] [address] Dr. Tobias Murrieta Neutrophils/100 WBC (Bld) 37.3 % Critically low 43.0-75.0 [facility] Comment on above: Performed By: #### D ATCBC #### [facility] [address] [place] [address] Dr. Tobias Murrieta Platelet mean volume (Bld) [Entitic vol] 9.6 fL Normal 9.5-13.5 [facility] Comment on above: Performed By: #### D ATCBC #### [facility] [address] [place] [address] Dr. Tobias Murrieta PLT 131 103/ul Critically low 150-450 [facility] Comment on above: Performed By: #### D ATCBC #### [facility] [address] [place] [address] Dr. Tobias Murrieta RBC 4.19 106/ul Critically low 4.70-6.10 [facility] Comment on above: Performed By: #### D ATCBC #### [facility] [address] [place] [address] Dr. Tobias Murrieta WBC 4.9 103/ul Normal 4.0-11.0 [facility] Comment on above: Performed By: #### D ATCBC #### [facility] [address] [place] [address] Dr. Tobias Murrieta BEN- BMP WITH LIPIDon 2021 Anion gap [Moles/Vol] 11.2 mmol/L Normal [facility] Comment on above: Performed By: #### T OTIBC, FERR #### [facility] [address] [address] [address] Tobias Murrieta Calcium [Mass/Vol] 9.2 mg/dL Normal 8.5-10.1 [facility] Comment on above: Performed By: #### T OTIBC, FERR #### [facility] [address] [address] [address] Tobias Murrieta Chloride [Moles/Vol] 107 mmol/L Normal 98-107 [facility] Comment on above: Performed By: #### T OTIBC, FERR #### [facility] [address] [address] [address] Tobias Murrieta Cholesterol [Mass/Vol] 154 mg/dL Normal <=200 [facility] Comment on above: Performed By: #### T OTIBC, FERR #### [facility] [address] [place] [address] Dr. Tobias Murrieta Cholesterol in HDL [Mass/Vol] 55 mg/dL Normal 40-60 [facility] Comment on above: Performed By: #### T OTIBC, FERR #### [facility] [address] [place] [address] Dr. Tobias Murrieta Cholesterol in LDL [Mass/Vol] 90.0 mg/dL Normal [facility] Comment on above: Performed By: #### T OTIBC, FERR #### [facility] [address] [address] [address] Tobias Murrieta CO2 [Moles/Vol] 30.3 mmol/L Normal 21.0-32.0 [facility] Comment on above: Performed By: #### T OTIBC, FERR #### [facility] [address] [address] [address] Tobias Murrieta Creatinine [Mass/Vol] 0.98 mg/dL Normal 0.70-1.30 [facility] Comment on above: Performed By: #### T OTIBC, FERR #### [facility] [address] [address] [address] Tobias Murrieta EGFR-AF [place] >60 Normal >=[address] [facility] Comment on above: Performed By: #### T OTIBC, FERR #### [facility] [address] [address] [address] Tobias Murrieta EGFR-NON AF [place] >60 Normal >=60 [facility] Comment on above: Performed By: #### T OTIBC, FERR #### [facility] [address] [address] [address] Tobias Murrieta Glucose [Mass/Vol] 94 mg/dL Normal 74-106 [facility] Comment on above: Performed By: #### T OTIBC, FERR #### [facility] [address] [address] [address] Tobias Murrieta HDL NORMAL > or = 60 mg/dl - LO W CARDIOVASCULAR RISK <40 mg/dl - HIGH CARDIOVASCULAR RISK Normal [facility] Comment on above: Performed By: #### T OTIBC, FERR #### [facility] [address] [place] [address] Dr. Tobias Murrieta LDL CALC NORMAL SEE BELOW Normal [facility] Comment on above: Result Comment: <100 mg/dl OPTIMAL 100 - 129 mg/dl NEAR OR ABOVE OPTIMAL 130 - 159 mg/dl BORDERLINE HIGH 160 - 189 mg/dl HIGH >190 mg/dl VERY HIGH Performed By: #### T OTIBC, FERR #### [facility] [address] [place] [address] Dr. Tobias Murrieta Potassium [Moles/Vol] 4.5 mmol/L Normal 3.5-5.1 [facility] Comment on above: Performed By: #### T OTIBC, FERR #### [facility] [address] [place] [address] Dr. Tobias Murrieta Sodium [Moles/Vol] 144 mmol/L Normal 136-145 [facility] Comment on above: Performed By: #### T OTIBC, FERR #### [facility] [address] [place] [address] Dr. Tobias Murrieta Triglyceride [Mass/Vol] 45 mg/dL Normal <=150 [facility] Comment on above: Performed By: #### T OTIBC, FERR #### [facility] [address] [address] [address] Tobias Murrieta Urea nitrogen [Mass/Vol] 27.0 mg/dL Critically high 7.0-18.0 [facility] Comment on above: Performed By: #### T OTIBC, FERR #### [facility] [address] [address] [address] Tobias Murrieta Urea nitrogen/Creatinine [Mass ratio] 27.6 mg/mg Normal [facility] Comment on above: Performed By: #### T OTIBC, FERR #### [facility] [address] [address] [address] Tobias Murrieta VLDL CALC 9.0 mg/dL Normal [facility] Comment on above: Performed By: #### T OTIBC, FERR #### [facility] [address] [address] [address] Tobias Murrieta CBC panel Auto (Bld)on 01-18 Erythrocyte distribution width (RBC) [Ratio] 14.1 % 11.5 - 15.0 % [facility] Hematocrit (Bld) [Volume fraction] 41.2 % 39.0 - 51.0 % [facility] Hemoglobin (Bld) [Mass/Vol] 12.9 g/dL Low 13.0 - 17.0 g/dL [facility] MCH (RBC) [Entitic mass] 28.9 pg 26.0 - 34.0 pg [facility] MCHC (RBC) [Mass/Vol] 31.3 g/dL 30.5 - 36.0 g/dL [facility] MCV (RBC) [Entitic vol] 92.2 fL 80.0 - 100.0 fL [facility] Nucleated RBC (Bld) [#/Vol] 10*3/uL <0.01 k/uL [facility] Platelet mean volume (Bld) [Entitic vol] 10.9 fL 9.0 - 12.7 fL [facility] Platelets (Bld) [#/Vol] 151 10*3/uL 150 - 400 k/uL [facility] RBC (Bld) [#/Vol] 4.47 10*6/uL 4.20 - 6.0 0 m/uL [facility] WBC (Bld) [#/Vol] 4.66 10*3/uL 3.70 - 11. 00 k/uL [facility] Comprehensive metabolic 2000 panelon 01-18-2022 Albumin [Mass/Vol] 4.5 g/dL 3.9 - 4.9 g/dL [facility] ALP [Catalytic activity/Vol] 112 U/L 38 - 113 U/L [facility] ALT [Catalytic activity/Vol] 26 U/L 10 - 54 U/L [facility] Anion gap [Moles/Vol] 11 mmol/L 9 - 18 mmol/L [facility] AST [Catalytic activity/Vol] 33 U/L 14 - 40 U/L [facility] Bilirubin [Mass/Vol] 0.8 mg/dL 0.2 - 1 .3 mg/dL [facility] Calcium [Mass/Vol] 9.6 mg/dL 8.5 - 10. 2 mg/dL [facility] Chloride [Moles/Vol] 102 mmol/L 97 - 10 5 mmol/L [facility] CO2 [Moles/Vol] 27 mmol/L 22 - 30 mmol/L [facility] Creatinine [Mass/Vol] 0.95 mg/dL 0.73 - 1.22 mg/dL [facility] Estimated Glomerular Filtration Rate 83 mL/min/1.73m >=60 mL/min/1.73m [facility] Glucose [Mass/Vol] 109 mg/dL High 74 - 99 mg/dL [facility] Potassium [Moles/Vol] 5.5 mmol/L High 3.7 - 5.1 mmol/L [facility] Protein [Mass/Vol] 7.4 g/dL 6.3 - 8.0 g/dL [facility] Sodium [Moles/Vol] 140 mmol/L 136 - 144 mmol/L [facility] Urea nitrogen [Mass/Vol] 22 mg/dL 9 - 24 mg/dL [facility] NT PRO BNPon 01-18-2022 Natriuretic peptide.B prohormone N-Terminal [Mass/Vol] 600 pg/mL High <450 pg/mL [facility] CNPNon 03-31-2021 CNPN Telephone (FVPRAPalomo) BRITTA TORRES ([id number]) 1945 M Date Time Provider Department 03/31/21 BRANDY MCKEON During your visit today, we recorded the following information about you: Brandy Mckeon APRN.[employer]ING 03/31/2021 4:54 PM Signed Received request from [...] any further assistance is needed. Brandy Mckeon APRN.[employer] LINING ECHO 03/23/2021: - Exam indication: atrial fibrillation [...] Heavily calcified valve seen on fluoroscopy. Dora Child [facility] 2021 11:48 AM Signed Spoke to pt and scheduled PFTs on 04/13/21 in [place] and Carotid US on 04/18/21 in [place]. 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 - aspirin, enteric coated (ADULT LOW DOSE ASPIRIN) 81 mg EC tablet Take 1 tablet by mouth once daily. - nitroglycerin sublingual (NITROQUICK) 0.3 mg SL (more content not included)... [facility] ALLIED HEALTHon 03-23-2021 ALLIED HEALTH HNO ID: [id number] Author: RT Manuel(R) Service: ? Author Type: [...] RT Manuel(R) March 23, 2021 9:36 AM [facility] CTA CORONARY W IVCONon 03-23 CTA CORONARY W IVCON * * *Final Report* * * DATE OF EXAM: Mar 23 2021 10:21AM [facility] 0470 - CTA CORONARY W IVCON / [...] Moderate left and severe right atrial dilation. Content Developer: ETHAN Transcribe Date/Time: Mar 23 2021 11:30A Dictated by : JONAS JOHN MD This examination was interpreted and the report reviewed and electr (more content not included)... [facility] NURSING PROGon 03-23-2021 NURSING PROG HNO ID: [id number] Author: Sheryl Negrete RN Service: Nursing Author Type: Registered Nurse Type: Nursing Progress Note Filed: 03/23/2021 11:11 AM Note Text: RADIOLOGY SERVICE PROGRESS NOTE DATE OF SERVICE: March 23, 2021 TIME OF SERVICE: 2391 - 3179 EVENT: COVID (+) Pt swabbed outside hospital. [...] 23, 2021 TIME: 11:07 AM PAGER/CONTACT #: [facility] NURSING PROG HNO ID: [id number] Author: Sheryl Negrete RN Service: Nursing Author [...] Negrete RN March 23, 2021 8:55 AM [facility] No Panel Information [facility] Vital Signs Date Time Vital Sign Value Performing Clinician Facility 01-05-2025 08:02-0400 Body mass index (BMI) [Ratio] 22.34 kg/m2 Patricia Archer APRN.CNP Work Phone: [facility] 01-05-2025 08:02-0400 Body weight 76.8 kg Patricia Archer APRN.CNP Work Phone: [facility] 01-05-2025 08:02-0400 Diastolic blood pressure 72 mm[Hg] Patricia Archer MANAGER CLINICAL RESEARCH.PA[employer]ING Work Phone: [facility] 01-05-2025 08:02-0400 Heart rate 80 /min Patricia Archer MANAGER CLINICAL RESEARCH.[employer]ING Work Phone: [facility] 01-05-2025 08:02-0400 Systolic blood pressure 128 mm[Hg] Patricia Archer MANAGER CLINICAL RESEARCH.PASTER [employer] LINING Work Phone: [facility] 12-21-2024 13:30-0400 Body height 185.4 cm Austen Ontiveros MD Work Phone: [facility] 12-21-2024 13:30-0400 Body mass index (BMI) [Ratio] 22.43 kg/m2 Austen Ontiveros MD Work Phone: [facility] 12-21-2024 13:30-0400 Body weight 77.11 kg Austen Ontiveros MD Work Phone: [facility] 12-21-2024 13:30-0400 Heart rate 106 /min Austen Ontiveros MD Work Phone: [facility] 12-21-2024 13:30-0400 SaO2% (BldA) [Mass fraction] 95 % Austen Ontiveros MD Work Phone: [facility] 11-02-2024 11:34-0400 Body height 185.4 cm Austen Ontiveros MD Work Phone: [facility] 11-02-2024 11:34-0400 Body mass index (BMI) [Ratio] 22.43 kg/m2 Austen Ontiveros MD Work Phone: [facility] 11-02-2024 11:34-0400 Body weight 77.11 kg Austen Ontiveros MD Work Phone: [facility] 10-09-2024 09:59-0400 Body height 185.4 cm Ever Estrada MD Work Phone: [facility] 10-09-2024 09:59-0400 Body mass index (BMI) [Ratio] 22.4 kg/m2 Ever Estrada MD Work Phone: [facility] 10-09-2024 09:59-0400 Body weight 77 kg Ever Estrada MD Work Phone: [facility] 10-09-2024 09:59-0400 Diastolic blood pressure 56 mm[Hg] Ever Estrada MD Work Phone: [facility] 10-09-2024 09:59-0400 Heart rate 83 /min Ever Estrada MD Work Phone: [facility] 10-09-2024 09:59-0400 Systolic blood pressure 126 mm[Hg] Ever Estrada MD Work Phone: [facility] 06-15-2024 11:59-0500 Body mass index (BMI) [Ratio] 22.6 kg/m2 Dharmesh Bagley MD Work Phone: [facility] 06-15-2024 11:59-0500 Body weight 77.7 kg Dharmesh Bagley MD Work Phone: [facility] 06-15-2024 11:59-0500 Diastolic blood pressure 80 mm[Hg] Dharmesh Bagley MD Work Phone: [facility] 06-15-2024 11:59-0500 Heart rate 55 /min Dharmesh Bagley MD Work Phone: [facility] 06-15-2024 11:59-0500 SaO2% (BldA) [Mass fraction] 96 % Dharmesh Bagley MD Work Phone: [facility] 06-15-2024 11:59-0500 Systolic blood pressure 130 mm[Hg] Dharmesh Bagley MD Work Phone: [facility] 04-28-2024 09:42-0400 Body height 185.4 cm Austen Ontiveros MD Work Phone: [facility] 04-28-2024 09:42-0400 Body mass index (BMI) [Ratio] 22.43 kg/m2 Austen Ontiveros MD Work Phone: [facility] 04-28-2024 09:42-0400 Body weight 77.11 kg Austen Ontiveros MD Work Phone: [facility] 04-07-2024 09:11-0400 Body height 185.4 cm Austen Ontiveros MD Work Phone: [facility] 04-07-2024 09:11-0400 Body mass index (BMI) [Ratio] 22.43 kg/m2 Austen Ontiveros MD Work Phone: [facility] 04-07-2024 09:11-0400 Body weight 77.11 kg Austen Ontiveros MD Work Phone: [facility] 04-07-2024 09:11-0400 Diastolic blood pressure 68 mm[Hg] Austen Ontiveros MD Work Phone: [facility] 04-07-2024 09:11-0400 Heart rate 103 /min Austen Ontiveros MD Work Phone: [facility] 04-07-2024 09:11-0400 SaO2% (BldA) [Mass fraction] 97 % Austen Ontiveros MD Work Phone: [facility] 04-07-2024 09:11-0400 Systolic blood pressure 120 mm[Hg] Austen Ontiveros MD Work Phone: [facility] 03-16-2024 08:43-0400 Body mass index (BMI) [Ratio] 22.28 kg/m2 Patricia Archer APRN.[employer]ING Work Phone: [facility] 03-16-2024 08:43-0400 Body weight 76.6 kg Patricia Archer APRN.[employer]ING Work Phone: [facility] 03-16-2024 08:43-0400 Diastolic blood pressure 78 mm[Hg] Patricia Archer APRN.PASTER H[employer] LINING Work Phone: [facility] 03-16-2024 08:43-0400 Heart rate 91 /min Patricia Archer APRN.PASTER H[employer] LINING Work Phone: [facility] 03-16-2024 08:43-0400 SaO2% (BldA) [Mass fraction] 99 % Patricia Archer APRN.PA[employer]ING Work Phone: [facility] 03-16-2024 08:43-0400 Systolic blood pressure 132 mm[Hg] Patricia Archer APRN.PASTER H[employer] LINING Work Phone: [facility] 11-15-2023 12:40-0400 Body height 185.4 cm Pacc 1 Work Phone: [facility] 11-15-2023 12:40-0400 Body mass index (BMI) [Ratio] 23.85 kg/m2 Pacc 1 Work Phone: [facility] 11-15-2023 12:40-0400 Body temperature 97.3 [degF] Pacc 1 Work Phone: [facility] 11-15-2023 12:40-0400 Body weight 82 kg Pacc 1 Work Phone: [facility] 11-15-2023 12:40-0400 Diastolic blood pressure 66 mm[Hg] Pacc 1 Work Phone: [facility] 11-15-2023 12:40-0400 Heart rate 66 /min Pacc 1 Work Phone: [facility] 11-15-2023 12:40-0400 Respiratory rate 16 /min Pacc 1 Work Phone: [facility] 11-15-2023 12:40-0400 SaO2% (BldA) [Mass fraction] 99 % Pacc 1 Work Phone: [facility] 11-15-2023 12:40-0400 Systolic blood pressure 142 mm[Hg] Pacc 1 Work Phone: [facility] 08-09-2023 09:32-0500 Body height 185.4 cm Ever Estrada MD Work Phone: [facility] 08-09-2023 09:32-0500 Body weight 84.4 kg Ever Estrada MD Work Phone: [facility] 08-09-2023 09:32-0500 Diastolic blood pressure 64 mm[Hg] Ever Estrada MD Work Phone: [facility] 08-09-2023 09:32-0500 Heart rate 62 /min Ever Estrada MD Work Phone: [facility] 08-09-2023 09:32-0500 Respiratory rate 18 /min Ever Estrada MD Work Phone: [facility] 08-09-2023 09:32-0500 SaO2% (BldA) [Mass fraction] 95 % Ever Estrada MD Work Phone: [facility] 08-09-2023 09:32-0500 Systolic blood pressure 106 mm[Hg] Ever Estrada MD Work Phone: [facility] 06-07-2023 08:42-0500 Body height 186.7 cm Amy Subramanian MANAGER CLINICAL RESEARCH.PASTER [employer] LINING Work Phone: [facility] 06-07-2023 08:42-0500 Body weight 84.37 kg Amy Subramanian MANAGER CLINICAL RESEARCH.PASTER [employer] LINING Work Phone: [facility] 06-07-2023 08:42-0500 Diastolic blood pressure 80 mm[Hg] Amy Subramanian MANAGER CLINICAL RESEARCH.PASTER [employer] LINING Work Phone: [facility] 06-07-2023 08:42-0500 Heart rate 86 /min Amy Subramanian MANAGER CLINICAL RESEARCH.PASTER [employer]ING Work Phone: [facility] 06-07-2023 08:42-0500 Systolic blood pressure 150 mm[Hg] Amy Subramanian MANAGER CLINICAL RESEARCH.PASTER H[employer] LINING Work Phone: [facility] 08-31-2022 08:12-0500 Body weight 83.19 kg Dharmesh Bagley MD Work Phone: [facility] 08-31-2022 08:12-0500 Diastolic blood pressure 76 mm[Hg] Dharmesh Bagley MD Work Phone: [facility] 08-31-2022 08:12-0500 Heart rate 112 /min Dharmesh Bagley MD Work Phone: [facility] 08-31-2022 08:12-0500 Systolic blood pressure 152 mm[Hg] Dharmesh Bagley MD Work Phone: [facility] 06-04-2022 08:37-0500 Body height 186.7 cm Ever Estrada MD Work Phone: [facility] 06-04-2022 08:37-0500 Body weight 83.46 kg Ever Estrada MD Work Phone: [facility] 06-04-2022 08:37-0500 Diastolic blood pressure 70 mm[Hg] Ever Estrada MD Work Phone: [facility] 06-04-2022 08:37-0500 Heart rate 113 /min Ever Estrada MD Work Phone: [facility] 06-04-2022 08:37-0500 Systolic blood pressure 152 mm[Hg] Ever Estrada MD Work Phone: [facility] 05-22-2022 09:55-0500 Blood Pressure Location Ishaan NILL [facility] 05-22-2022 09:55-0500 Diastolic blood pressure 78 mm[Hg] Ishaan NILL [facility] 05-22-2022 09:55-0500 Heart rate 112 /min Ishaan NILL [facility] 05-22-2022 09:55-0500 Respiratory rate 16 /min Ishaan NILL [facility] 05-22-2022 09:55-0500 Systolic blood pressure 152 mm[Hg] Ishaan NILL [facility] 03-01-2022 08:48-0400 Body height 186.7 cm Dharmesh Bagley MD Work Phone: [facility] 03-01-2022 08:48-0400 Body weight 81.65 kg Dharmesh Bagley MD Work Phone: [facility] 03-01-2022 08:48-0400 Diastolic blood pressure 80 mm[Hg] Dharmesh Bagley MD Work Phone: [facility] 03-01-2022 08:48-0400 Heart rate 110 /min Dharmesh Bagley MD Work Phone: [facility] 03-01-2022 08:48-0400 Systolic blood pressure 142 mm[Hg] Dharmesh Bagley MD Work Phone: [facility] 01-18-2022 09:11-0400 Body weight 79.38 kg Ever Estrada MD Work Phone: [facility] 01-18-2022 09:11-0400 Diastolic blood pressure 80 mm[Hg] Ever Estrada MD Work Phone: [facility] 01-18-2022 09:11-0400 Heart rate 95 /min Ever Estrada MD Work Phone: [facility] 01-18-2022 09:11-0400 Systolic blood pressure 123 mm[Hg] Ever Estrada MD Work Phone: [facility] Encounters Encounter Date Encounter Type Care Provider Facility Start: 01-05-2025 End: 01-06-2025 Clinisync Result Encounter Generic External Data Provider [facility] External Department Unsolicited Start: 01-05-2025 End: 01-06-2025 Clinisync Result Encounter Generic External Data Provider [facility] External Department Unsolicited Start: 01-05-2025 End: 01-05-2025 Office outpatient visit 25 minutes Patricia Archer APRN.CNP Work Phone: Cardiology Comment on above: Chronic a-fib (HCC) (Primary Dx); Primary hypertension; Aortic valve stenosis, etiology of cardiac valve disease unspecified; 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 Start: 01-05-2025 End: 01-05-2025 ambulatory PATRICIA ARCHER Facility:[facility] Start: 12-21-2024 End: 12-21-2024 Cole Ontiveros MD Work Phone: [facility] Start: 12-21-2024 End: 12-21-2024 Bamboo flowsheet Austen Ontiveros MD Work Phone: [facility] Start: 12-21-2024 End: 12-21-2024 Office outpatient visit 25 minutes Austen Ontiveros MD Work Phone: [facility] Comment on above: Syncope and collapse (Primary Dx); Longstanding persistent atrial fibrillation (HCC); 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 ; Mild persistent asthma without complication ([facility]); RBBB (right bundle branch block) Start: 12-21-2024 End: 12-21-2024 ambulatory AUSTEN ONTIVEROS Not Available Start: 11-27-2024 End: 11-27-2024 ambulatory AUSTEN ONTIVEROS Facility:[facility] Start: 11-04-2024 End: 11-10-2024 Telephone encounter Ever Goldberg MD Work Phone: Cardiology Comment on above: syncopal episode Start: 11-02-2024 End: 11-02-2024 Bamboo flowsheet Austen Ontiveros MD Work Phone: [facility] Start: 11-02-2024 End: 11-02-2024 Bamboo flowsheet Austen Ontiveros MD Work Phone: [facility] Start: 11-02-2024 End: 11-02-2024 Office outpatient visit 15 minutes Austen Ontiveros MD Work Phone: [facility] Comment on above: Pneumonia of right l ower lobe due to infectious organism (Primary Dx); Polypharmacy; BMI 22.0-22.9, adult; Mild persistent asthma without complication (CMS/HCC) Start: 11-02-2024 End: 11-02-2024 ambulatory AUSTEN ONTIVEROS Not Available Start: 10-09-2024 End: 10-11-2024 Clinisync Result Encounter Generic External Data Provider [facility] External Department Unsolicited Start: 10-09-2024 End: 10-11-2024 Clinisync Result Encounter Generic External Data Provider [facility] External Department Unsolicited Start: 10-09-2024 End: 10-09-2024 ambulatory EVER GOLDBERG Facility:[facility] Start: 10-09-2024 End: 10-09-2024 Office outpatient visit 40 minutes Ever Goldberg MD Work Phone: Cardiology Comment on above: 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 Work Phone: Start: 07-29-2024 End: 07-29-2024 Departed Referred Walker Edge MD Work Phone: [facility] [place] Work Phone: Start: 07-23-2024 End: 07-23-2024 Telephone encounter Austen Ontiveros MD Work Phone: [facility] Start: 07-14-2024 End: 07-14-2024 Bamboo flowsheet Austen Ontiveros MD Work Phone: [facility] Start: 07-14-2024 End: 07-14-2024 Bamlaurao flowsheet Austen Ontiveros MD Work Phone: [facility] Start: 07-14-2024 End: 07-14-2024 Patient encounter procedure Austen Ontiveros MD Work Phone: [facility] Comment on above: Neoplasm, uncertain whether benign or malignant; Changing skin lesion; Personal history of skin cancer Start: 07-14-2024 End: 07-14-2024 ambulatory AUSTEN ONTIVEROS Not Available Start: 06-18-2024 End: 06-18-2024 Telephone encounter Agnes Reina RN Cardiology Start: 06-15-2024 End: 06-15-2024 ambulatory DHARMESH BAGLEY Facility:[facility] Start: 06-15-2024 End: 06-15-2024 Patient encounter procedure Dharmesh Bagley MD Work Phone: Cardiology Comment on above: Atrial fibrillation, chronic (HCC) (Primary Dx) Start: 04-28-2024 End: 04-28-2024 Bamboo flowsheet Austen Ontiveros MD Work Phone: [facility] Start: 04-28-2024 End: 04-28-2024 Bamboo flowsheet Austen Ontiveros MD Work Phone: [facility] Start: 04-28-2024 End: 04-28-2024 Patient encounter procedure Austen Ontiveros MD Work Phone: [facility] Comment on above: Neoplasm, uncertain whether benign or malignant; Changing skin lesion; Polypharmacy; BMI 22.0-22.9, adult Start: 04-28-2024 End: 04-28-2024 ambulatory AUSTEN ONTIVEROS Not Available Start: 04-07-2024 End: 04-07-2024 Bamboo flowsheet Austen Ontiveros MD Work Phone: [facility] Start: 04-07-2024 End: 04-07-2024 Bamboo flowsheet Austen Ontiveros MD Work Phone: [facility] Start: 04-07-2024 End: 04-07-2024 Patient encounter procedure Austen Ontiveros MD Work Phone: [facility] Comment on above: Encounter for Medica re annual wellness exam (Primary Dx); Advance directive in chart; Encounter for screening for other disorder; Screening for alcohol problem; Postinflammatory pulmonary fibrosis (CMS/HCC); Mild persistent asthma without complication (CMS/HCC); Lung granuloma (CMS/HCC); Pulmonary hypertension (CMS/HCC); 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 (CMS/HCC); Chronic diastolic heart failure (CMS/HCC); Bilateral carotid artery stenosis; Primary hypertension (CMS/HCC); Longstanding persistent atrial fibrillation (CMS/HCC); Abdominal aortic ectasia (CMS/HCC); Mixed hyperlipidemia (CMS/HCC); Changing pigmented skin lesion Start: 04-07-2024 End: 04-07-2024 ambulatory AUSTEN ONTIVEROS Not Available Start: 03-27-2024 End: 03-27-2024 Clinisync Result Encounter Generic External Data Provider [facility] External Department Unsolicited Start: 03-27-2024 End: 03-27-2024 Clinisync Result Encounter Generic External Data Provider [facility] External Department Unsolicited Start: 03-19-2024 End: 03-19-2024 Telephone encounter Patricia Archer APRN.CNP Work Phone: Cardiology Comment on above: Medication Problem Start: 03-16-2024 End: 03-16-2024 Telephone encounter Patricia Archer APRN.CNP Work Phone: Internal Medicine Comment on above: Orders Start: 03-16-2024 End: 03-16-2024 ambulatory PATRICIA ARCHER Facility:[facility] Start: 03-16-2024 End: 03-16-2024 Office outpatient visit 15 minutes Patricia Archer APRN.CNP Work Phone: Cardiology Comment on above: 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 (Primary Dx) Start: 03-03-2024 End: 03-03-2024 ambulatory EVER GOLDBEGR Facility:[facility] Start: 01-29-2024 Telephone encounter Ever shelton MD Work Phone: Cardiology Comment on above: covid exposure / que stions Start: 11-15-2023 End: 11-15-2023 Patient encounter procedure Eye Measurements Work Phone: Ophthalmology Comment on above: 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 Start: 11-15-2023 End: 11-15-2023 Admission to establishment Pacc Williams 1 Work Phone: Pre Anesthesia Start: 11-15-2023 End: 11-15-2023 Anesthesia consultation Pacc Williams 1 Work Phone: Pre Anesthesia Comment on above: Pre-operative cleara nce (Primary Dx); Chronic a-fib (HCC); 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); Primary hypertension; Pure hypercholesterolemia; History of cardioversion; Permanent atrial fibrillation (HCC); Aortic valve stenosis, etiology of cardiac valve disease unspecified; Pulmonary hypertension (HCC) Start: 11-15-2023 End: 11-15-2023 Preoperative state [facility] Nida 1 Work Phone: [facility] Work Phone: Start: 09-05-2023 Telephone encounter Ever shelton MD Work Phone: Cardiology Comment on above: Results Start: 09-03-2023 End: 09-03-2023 Patient encounter procedure Mary Senior MD Work Phone: Ophthalmology Comment on above: Left posterior capsu lar opacification (Primary Dx); Pseudophakia, left eye; Combined forms of 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 Start: 08-09-2023 Clinisync Result Encounter Gen alondra External Data Provider [facility] External Department Unsolicited Start: 08-09-2023 Clinisync Result Encounter Gen alondra External Data Provider [facility] External Department Unsolicited Start: 08-09-2023 End: 08-10-2023 ambulatory EVER GOLDBERG Facility:[facility] Start: 08-09-2023 End: 08-09-2023 Patient encounter procedure Ever Goldberg MD Work Phone: Cardiology Comment on above: S/P AVR (Primary Dx) ; 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 [facility] Start: 06-13-2022 End: 06-14-2022 ambulatory Ishaan DWOLING Facility:[id number] Start: 06-09-2022 End: 06-10-[address] ISHAAN DOWLING . Facility:[facility] Start: 06-09-2022 End: 06-10-2022 Encounter for preprocedural laboratory examination DR ISHAAN DOWLING . 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 Start: 05-22-2022 End: 05-22-2022 Patient encounter procedure Ishaan DOWLING [facility] Start: 05-11-2022 Telephone encounter Austen Ontiveros MD Work Phone: [address] [place] [address] Comment on above: Patient Question Start: 05-11-2022 ambulatory Ishaan DOWLING [facility] Start: 05-02-2022 ambulatory Ishaan DOWLING Facility :[facility] Start: 04-25-2022 End: 04-26-[address] AUSTEN ONTIVEROS . Facility:[facility] Start: 04-11-2022 Refill Amy Subramanian CLAUDIO Work Phone: Cardiology Comment on above: Refill Request Start: 03-01-2022 End: 03-01-2022 Patient encounter procedure Dharmesh Bagley MD Work Phone: Cardiology Comment on above: Atrial fibrillation, persistent (HCC) (Primary Dx) Start: 01-24-2022 End: 01-25-[address] AUSTEN ONTIVEROS . 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 Fac ility:[facility] Start: 10-23-2021 Telephone encounter Dharmehs Bagley MD Work Phone: Cardiology Comment on above: Care Coordination Start: 05-29-2021 End: 06-28-2021 Patient encounter status Pacc 1 Work Phone: [facility] Procedures Date Procedure Procedure Detail Performing Clinician Start: 01-05-2025 Ecg routine ecg w/le ast 12 lds w/i&r Generic External Data Provider Start: 10-09-2024 Ecg routine ecg w/le ast 12 lds i&r only [facility] Provider Start: 10-09-2024 ECG01 Generic Ex ternal Data Provider Start: 07-14-2024 Level i surg patholo gy gross examination only Austen Ontiveros MD Work Phone: Start: 04-28-2024 Level i surg patholo gy gross examination only Austen Ontiveros MD Work Phone: Start: 03-27-2024 ALL LIPID PROFILE (FASTING) Generic External Data Provider Start: 03-27-2024 [facility] CMP (CMP) (FOR R [facility] USE) Generic External Data Provider Start: 11-15-2023 IOL BIOMETRY W/ IOL CALC OD (RIGHT EYE) Mary Senior MD Work Phone: Start: 09-03-2023 Post-cataract laser surgery Mary Senior MD Work Phone: Start: 09-03-2023 Computerized ophthal tacho imaging retina Mary Senior MD Work Phone: Start: 08-09-2023 [facility] [...] Start: 07-08-2009 Colonoscopy Ishaan VASQUEZ Appendectomy Ishaan JOSEY Cardiac ablation usi ng fluoroscopy guidance Ishaan DOWLING EXCISION LESION 1 Ishaan VASQUEZ Comment on above: FOREHEAD Extraction of cataract Marc alexa DOWLING Intraocular lens imp lant (physical object) Ishaan DOWLING Tonsillectomy and adenoidectomy Ishaan DOWLING Plan of Treatment Date Care Activity Detail Author Start: 10-18-2031 Urine microalbumin profile DTaP,Tdap,Td Vaccine (4 - Td or Tdap) [facility] Start: 01-18-2027 LIPID SCREEN LIPID SCREEN [facility] Start: 10-09-2025 BP Controlled (<130/80) BP Controlled (<130/80) [facility] Start: 06-30-2025 End: 06-30-2025 Patient encounter procedure 06/30/2025 8:40 AM EST Office Visit Cardiology [address] [place] [address] [place] [address] [place] [address] Follow up Cardiology Comment on above: Follow up Start: 06-10-2025 End: 06-10-2025 Patient encounter procedure 06/10/2025 10:40 AM EST Office Visit Cardiology [address] [place] [address] [place] [address] [place] [address] Return in about 8 months (around 06/10/2025). Cardiology Comment on above: Return in about 8 months (around 06/10/20 25). 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 [I25.810] Cardiology Comment on above: Coronary artery disease involving meredith ry bypass graft of pala heart without angina pectoris [I25.810] Start: 04-07-2025 Medicare Annual Wellness (AWV) Medicare Annual Wellness (AWV) [facility] Start: 03-08-2025 Influenza vaccination [facility] Start: 01-18-2025 DIABETES SCREEN DIABETES SCREEN [facility] Start: 01-18-2025 Diabetes Screening Diabetes Screening [facility] Start: 01-05-2025 End: 2025 Lipid 1996 panel - Serum or Plasma LIPID PANEL, FASTING Lab Routine 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 Expected: 01/05/2025, Expires: 2025 [facility] Comment on above: Expected: 01/05/2025, Expires: Start: 12-21-2024 End: 12-21-2024 Patient encounter procedure 12/21/2024 1:45 PM EDT Office Visit [facility] [address] [place] [address] Austen Ontiveros MD [address] [place] [address] Syncope and collapse [facility] Comment on above: Syncope and collapse Start: 12-07-2024 End: 12-07-2024 Patient encounter procedure 12/07/2024 8:00 AM EDT Office Visit Cardiology [address] [place] [address] Ladarius Beatty PA-C [address] [place] [address] Patient needs appt with [facility] in [place] per Dr. Goldberg Cardiology Comment on above: Patient needs appt with [facility] in [place] per Dr. Goldberg Start: 11-08-2024 End: 02-07-2025 Natriuretic peptide.B prohormone N-Terminal [Mass/volume] in Serum or Plasma NT PRO BNP Lab Routine Pulmonary hypertension (HCC) Chronic diastolic (congestive) heart failure (HCC) Expected: 11/08/2024, Expires: 02/07/2025 [facility] Comment on above: Expected: 11/08/2024, Expires: Start: 11-02-2024 End: 11-02-2024 Patient encounter procedure 11/02/2024 11:45 AM EDT Office Visit [facility] [address] [place] [address] Austen Ontiveros MD [address] [facility] [address] [place] [address] (Fax) Arrived [facility] Comment on above: Arrived Start: 10-09-2024 End: 10-09-2024 Patient encounter procedure 10/09/2024 10:00 AM EDT Office Visit Cardiology [address] [place] [address] [place] [address] [place] [address] Follow up Cardiology Comment on above: Follow up Start: 09-02-2024 End: 02-24-2025 IOL BIOMETRY W/ IOL CALC OD (RIGHT EYE) IOL BIOMETRY W/ IOL CALC OD (RIGHT EYE) OPHT Imaging Routine Combined forms of 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 Expected: 09/02/2024, Expires: 02/24/2025 [facility] Work Phone: Comment on above: Expected: 09/02/2024, Expires: Start: 08-09-2024 BP Controlled (<130/80) BP Controlled (<130/80) [facility] Start: 08-09-2024 Hepatitis B surface antibody level LDL Cholesterol [facility] Start: 07-14-2024 End: 07-14-2024 Patient encounter procedure 07/14/2024 2:00 PM EST Office Visit [facility] [address] [facility] [address] [place] [address] Austen Ontiveros MD [address] [facility] [address] [place] [address] (Fax) Neoplasm, uncertain whether benign or malignant; Changing skin lesion; Personal history of skin cancer [facility] Comment on above: Neoplasm, uncertain whether benign or ma lignant; Changing skin lesion; Personal history of skin cancer Start: 07-08-2024 Advance Directive Discussion Advance Directive Discussion [facility] Start: 07-05-2024 DIABETES SCREEN DIABETES SCREEN [facility] Start: 06-15-2024 End: 06-15-2024 Patient encounter procedure 06/15/2024 9:20 AM EST Office Visit Cardiology [address] [place] [address] [place] [address] [place] [address] Return in about 1 year (around 06/07/2024) for Dr. Bagley . Cardiology Comment on above: Return in about 1 year (around 06/07/2024 ) for Dr. Bagley . Start: 06-02-2024 Influenza vaccination Influenza Vaccine (#1) [facility] Comment on above: Postponed from 03/08/2024 (Patient Refus ed) Start: 04-28-2024 End: 04-28-2025 Tissue exam [facility] Work Phone: Comment on above: Expected: 04/28/2024 (Approximate), Expi res: 04/28/2025 Start: 04-28-2024 End: 04-28-2024 Patient encounter procedure [facility] 00 Comment on above: Neoplasm, uncertain whether benign or ma lignant; Changing skin lesion; Polypharmacy; BMI 22.0-22.9, adult Start: 04-07-2024 End: 04-07-2024 Patient encounter procedure [facility] 00 Comment on above: Encounter for Medicare annual wellness e xam; Advance directive in chart; Encounter for screening for other disorder; Screening for alcohol problem Start: 03-19-2024 End: 06-18-2024 CBC panel - Blood by Automated count COMPLETE BLOOD COUNT Lab Routine Current use of saddle cutter anticoagulation Expected: 03/19/2024, Expires: 06/18/2024 [facility] Work Phone: Comment on above: Expected: 03/19/2024, Expires: Start: 03-16-2024 End: 06-15-2024 Comprehensive metabolic 2000 panel - Serum or Plasma COMPREHENSIVE METABOLIC PANEL Lab Routine 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 Expected: 03/16/2024, Expires: 06/15/2024 [facility] Comment on above: Expected: 03/16/2024, Expires: Start: 03-16-2024 End: 06-15-2024 Lipid 1996 panel - Serum or Plasma LIPID PANEL BASIC Lab Routine 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 Expected: 03/16/2024, Expires: 06/15/2024 [facility] Work Phone: Comment on above: Expected: 03/16/2024, Expires: Start: 03-08-2024 Covid-19 Vaccine () Covid-19 Vaccine () [facility] Start: 03-08-2024 Covid-19 Vaccine () Covid-19 Vaccine () [facility] Start: 03-08-2024 Influenza vaccination Influenza Vaccine (#[facility]) [facility] Start: 02-17-2024 End: 02-17-2024 Patient encounter procedure Cardiology Comment on above: 6 mo follow up Start: 02-03-2024 End: 02-03-2024 Patient encounter procedure 02/03/2024 8:50 AM EDT Office Visit Cardiology [address] [place] [id number] Echo just prior to next visit Cardiology Comment on above: Echo just prior to next visit Start: 01-03-2024 Medicare Annual Wellness (AWV) Medicare Annual Wellness (AWV) [facility] Start: 11-27-2023 End: 11-27-2023 Admission to same day surgery center 11/27/2023 1:20 PM EDT - 11/27/2023 1:50 PM EDT Surgery Ambulatory Surgery [address] [place], [place] [id number] Mary Senior V, MD [address] [place] [address] PHACOEMULSIFICATION CATARACT IMPLANT INTRAOCULAR LENS W/O ENDOSCOPIC CYCLOPHOTOCOAGULATION Ambulatory Surgery Comment on above: PHACOEMULSIFICATION CATARACT IMPLANT INT RAOCULAR LENS W/O ENDOSCOPIC CYCLOPHOTOCOAGULATION Start: 11-27-2023 End: 11-27-2023 Oph bmtry prtl coher intrfrmtry io lens pwr tres OPHTHALMIC BIOMETRY BY PARTIAL COHERENCE INTERFEROMETRY W/INTRAOCULAR LENS POWER CALCULATION Combined forms of 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 11/27/2023 1:20 PM EDT [facility] Start: 11-27-2023 Subsequent hospital visit by physician 11/27/2023 1:20 PM EDT Hospital Encounter Ambulatory Surgery [address] [place] [address] [place] [address] [place] [address] Combined forms of age-related cataract of right [...] 07-08-2023 Advance Directive Discussion Advance Directive Discussion [facility] Start: 07-08-2023 Behavioral Health Screening Behavioral Health Screening [facility] Start: 07-08-2023 Depression Assessment Depression Assessment [facility] Start: 03-08-2023 Covid-19 Vaccine () Covid-19 Vaccine () [facility] Start: 03-08-2023 Influenza vaccination [facility] Start: 01-18-2023 Hepatitis B surface antibody level LDL CHOLESTEROL [facility] Start: 12-02-2022 End: 02-01-2023 Lipid 1996 panel - Serum or Plasma LIPID PANEL BASIC Lab Routine 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) Pure hypercholesterolemia Expected: 12/02/2022, Expires: 02/01/2023 [facility] Work Phone: Comment on above: Expected: 12/02/2022, Expires: 3 Start: 09-01-2022 COVID-19 VACCINE (5 - Moderna series) COVID-19 VACCINE (5 - Moderna series) [facility] Start: 07-08-2022 ADVANCE DIRECTIVE DISCUSSION ADVANCE DIRECTIVE DISCUSSION [facility] Start: 07-08-2022 DEPRESSION ASSESSMENT DEPRESSION ASSESSMENT [facility] Start: 03-08-2022 Influenza vaccination INFLUENZA (#1) [facility] Start: 01-18-2022 End: 03-20-2022 Lipid 1996 panel - Serum or Plasma [facility] Work Phone: Comment on above: Expected: 01/18/2022, Expires: 2 Start: 09-04-2021 COVID-19 VACCINE (4 - Booster for Moderna series) COVID-19 VACCINE (4 - Booster for Moderna series) [facility] Start: 07-08-2021 ADVANCE DIRECTIVE DISCUSSION ADVANCE DIRECTIVE DISCUSSION [facility] Start: 07-08-2021 DEPRESSION ASSESSMENT DEPRESSION ASSESSMENT [facility] Start: 06-30-2021 COVID-19 VACCINE (4 - Booster for Moderna series) COVID-19 VACCINE (4 - Booster for Moderna series) [facility] Start: 06-02-2021 COVID-19 VACCINE (2 - Moderna 3-dose series) COVID-19 VACCINE (2 - Moderna 3-dose series) [facility] Start: 06-02-2021 COVID-19 VACCINE (2 - Moderna series) COVID-19 VACCINE (2 - Moderna series) [facility] Start: 07-10-2020 Urine microalbumin profile DTAP,TDAP,TD (2 - Tdap) [facility] Start: 2011 PNEUMOVAX AGE 65 AND OVER WITH 5YR LOOKBACK (#1) PNEUMOVAX AGE 65 AND OVER WITH 5YR LOOKBACK (#1) [facility] Start: 03-08-2011 Medicare Annual Wellness Visit Medicare Annual Wellness Visit [facility] Start: 1996 SHINGRIX VACCINE (1 of 2) SHINGRIX VACCINE (1 of 2) [facility] Start: 1991 COLOGUARD (FIT-DNA) COLOGUARD (FIT-DNA) [facility] Start: 1991 Colonoscopy COLONOSCOPY [facility] Start: 1991 COLORECTAL CANCER SCREENING COLORECTAL CANCER SCREENING [facility] Start: [address] COLONOGRAPHY [facility] Start: 1991 FECAL OCCULT BLOOD FECAL OCCULT BLOOD [facility] Start: 1991 SIGMOIDOSCOPY SIGMOIDOSCOPY [facility] Start: 1981 LIPID SCREEN LIPID SCREEN [facility] Start: 1964 ANNUAL PCP TEAM CHRONIC DISEASE VISIT ANNUAL PCP TEAM CHRONIC DISEASE VISIT [facility] Start: 1964 Anxiety Screening Anxiety Screening [facility] Start: 1964 BP CONTROLLED (<130/80) BP CONTROLLED (<130/80) [facility] Start: 1964 Depression Screening Depression Screening [facility] Start: 1964 Hepatitis B surface antibody level LDL CHOLESTEROL [facility] Start: 1964 HEPATITIS C SCREENING HEPATITIS C SCREENING [facility] Start: 1964 Hepatitis C screening Hepatitis C Screening [facility] Start: 1958 Adult depression screening assessment DEPRESSION SCREENING [facility] Start: 1952 PNEUMOCOCCAL: 65+ (1 - PCV) PNEUMOCOCCAL: 65+ (1 - PCV) [facility] CORNEAL TOPOGRAPHY P ENTACAM OD (RIGHT EYE) CORNEAL TOPOGRAPHY PENTACAM OD (RIGHT EYE) OPHT Imaging Routine Combined forms of 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 09/03/2023 3:07 PM EST [facility] Work Phone: End: 08-31-2023 ECG COMPLETE ECG COMPLETE ECG Routine Chronic atrial fibrillation (HCC) 1 Occurrences starting 08/31/2022 until 08/31/2023 [facility] Work Phone: Comment on above: 1 Occurrences starting 08/31/2022 until 08/31/2023 ECG COMPLETE ECG COMPLETE ECG 08/31/2022 8:38 AM EST [facility] ECG COMPLETE [facility] Work Phone: Comment on above: Ordered: 06/07/2023 ECG COMPLETE [facility] Work Phone: Comment on above: Ordered: 10/09/2024 ECG COMPLETE ECG COMPLETE ECG Routine Chronic a-fib (HCC) Primary hypertension Aortic valve stenosis, etiology of cardiac valve disease unspecified Ordered: 01/05/2025 [facility] Work Phone: Comment on above: Ordered: 01/05/2025 End: 08-09-2024 Echocardiography ECHO Cardiology Routine S/P AVR Pulmonary hypertension (HCC) 1 Occurrences starting 08/09/2023 until 08/09/2024 [facility] Work Phone: Comment on above: 1 Occurrences starting 08/09/2023 until 08/09/2024 End: 10-09-2025 Echocardiography ECHO Cardiology Routine 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 S/P AVR Pulmonary hypertension (HCC) 1 Occurrences starting 10/09/2024 until 10/09/2025 [facility] Comment on above: 1 Occurrences starting 10/09/2024 until 10/09/2025 OUTSIDE VENDOR CARDI AC OUTPATIENT EXTENDED RHYTHM RECORDING (WITHOUT TELEMETRY) OUTSIDE VENDOR CARDIAC OUTPATIENT EXTENDED RHYTHM RECORDING (WITHOUT TELEMETRY) Holter Routine Heat syncope, initial encounter 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 Ordered: 11/04/2024 [facility] Work Phone: Comment on above: Ordered: 11/04/2024 [facility] [place] Immunizations Immunization Date Immunization Notes Care Provider [facility] 10-15-2024 influenza, high dose seasonal, preservative-free Austen Ontiveros MD Work Phone: [facility] 10-15-2024 influenza virus vacc ine, unspecified formulation Patricia Archer APRN.CNP Work Phone: [facility] 05-16-2023 ABRYSVO - Respirator y syncytial virus (RSV), vaccine, bivalent, protein subunit RSV prefusion F, diluent reconstituted, 0.5 mL, PF Generic Provider [facility] 05-16-2023 Influenza, Seasonal, Quadrivalent, Adjuvanted Generic Provider [facility] 05-16-2023 influenza virus vacc ine, unspecified formulation Ever Estrada MD Work Phone: [facility] 05-09-2023 influenza virus vacc ine, unspecified formulation Generic Provider [facility] 05-01-2022 influenza virus vacc ine, unspecified formulation Generic Provider [facility] 05-01-2022 Moderna Bivalent Daniel ster Vaccination Generic Provider [facility] 10-17-2021 tetanus toxoid, redu jim diphtheria toxoid, and acellular pertussis vaccine, adsorbed Generic Provider [facility] 05-05-2021 influenza, high dose seasonal, preservative-free Generic Provider [facility] 04-07-2021 influenza virus vacc ine, unspecified formulation Generic Provider [facility] 09-09-2020 Moderna SARS-CoV-2 Vaccination Generic Provider [facility] 08-12-2020 Moderna SARS-CoV-2 Vaccination Generic Provider [facility] 04-15-2020 influenza, injectabl e, quadrivalent, preservative free Generic Provider [facility] 04-15-2020 Influenza, Seasonal, Quadrivalent, Adjuvanted Generic Provider [facility] 04-07-2020 influenza virus vacc ine, unspecified formulation Generic Provider [facility] 05-02-2019 influenza, high dose seasonal, preservative-free Generic Provider [facility] 05-02-2019 Influenza, High-dose Seasonal, Quadrivalent, Preservative Free Generic Provider [facility] 04-07-2019 influenza virus vacc ine, unspecified formulation [facility] 05-09-2018 influenza, high dose seasonal, preservative-free Dharmesh Bagley MD Work Phone: [facility] Work Phone: 05-09-2018 influenza, injectabl e, quadrivalent, preservative free Generic Provider [facility] 04-20-2018 influenza virus vacc ine, unspecified formulation Dharmesh Bagley MD Work Phone: [facility] Work Phone: 04-20-2018 pneumococcal polysaccharide vaccine, 23 valent Generic Provider [facility] 12-24-2017 zoster vaccine, live Generic Provide r [facility] 12-14-2017 zoster vaccine recombinant Generic Provider [facility] 10-25-2017 zoster vaccine, live Generic Provide r [facility] 10-22-2017 zoster vaccine recombinant Generic Provider [facility] 04-11-2017 influenza, injectabl e, quadrivalent, preservative free Generic Provider [facility] 10-10-2015 pneumococcal conjuga te vaccine, 13 valent Generic Provider [facility] 04-18-2015 influenza, seasonal, injectable, preservative free Generic Provider [facility] 09-27-2014 pneumococcal polysaccharide vaccine, 23 valent Generic Provider [facility] 09-14-2014 zoster vaccine, live Generic Provide r [facility] 04-07-2014 influenza virus vacc ine, unspecified formulation Generic Provider [facility] 04-07-2014 pneumococcal polysaccharide vaccine, 23 valent Generic Provider [facility] 04-07-2014 pneumococcal vaccine , unspecified formulation Generic Provider [facility] 03-31-2012 seasonal influenza, intradermal, preservative free Generic Provider [facility] 07-10-2010 diphtheria, tetanus toxoids and acellular pertussis vaccine Generic Provider [facility] 07-10-2010 diphtheria, tetanus toxoids and acellular pertussis vaccine, unspecified formulation Dharmesh Bagley MD Work Phone: [facility] Work Phone: 07-08-2010 tetanus toxoid, redu jim diphtheria toxoid, and acellular pertussis vaccine, adsorbed Generic Provider [facility] 08-24-2009 novel influenza-H1N1 -09, preservative-free, injectable Generic Provider [facility] Payers Date Payer Category Payer Self-pay 2019 Private Health Insurance [id number] 2019 Unknown MMO MMO MEDICARE SUPPLEMENT [id number] 2019-Present [phone] [address] [place] [address] Indemnity [id number] 2019 Unknown [id number] 2011 Medicare [id number] 2011 Medicare [id number] 1959 Medicare [id number] 1959 Self-pay [id number] 1959 Unknown [id number] 1946 Unknown [id number] [id number]. 727 1946 Unknown [id number] 2.16.840.1.736629.3.579.2. 727 1946 Unknown [id number] 2.16.840.1.151354.3.579.2. 727 1946 Unknown [id number] 2.16.840.1.107239.3.579.2. 593 1946 Unknown [id number] 2.16.840.1.666656.3.579.2. 593 1946 Unknown [id number] 2.16.840.1.752523.3.579.2. 593 1946 Unknown [id number] 2.16.840.1.173185.3.579.2. 593 1946 Unknown [id number] 2.16.840.1.002372.3.579.2. 593 1946 Unknown [id number] 2.16.840.1.098167.3.579.2. 1259 1946 Unknown [id number] 2.16.840.1.352525.3.579.2. 1259 1946 Unknown [id number] 2.16.840.1.772821.3.579.2. 1259 1946 Unknown [id number] 2.16.840.1.210008.3.579.2. 1259 1946 Unknown [id number] 2.16.840.1.765231.3.579.2. 1259 Unknown [id number] 2.16.840.1.446086.3.579.2. 593 Unknown [id number] 2.16.840.1.521491.3.579.2. 593 Unknown [id number] 2.16.840.1.690117.3.579.2. 531 Social History Date Type Detail Facility Start: 05-18-2013 End: 12-26-2022 Tobacco smoking status NHIS Never smoked tobacco [facility] Start: 05-18-2013 End: 12-26-2022 Tobacco use and exposure Smokeless tobacco non-user [facility] Start: 08-23-2021 End: 03-16-2024 Alcohol intake Current drinker of alcohol (finding) [facility] Start: 05-29-2021 History SDOH Alcohol Comment rare beer after mowing lawn in summer [facility] Start: 1945 Sex Assigned At Not on file [facility] Start: 1945 Sex Assigned At Male [facility] Start: 01-08-2022 End: 03-01-2022 Exposure to SARS-CoV-2 (event) Not sure [facility] Tobacco smoking status Never [facility] Start: 02-11-2023 End: 04-12-2023 Sex Assigned At Male [facility] Start: 02-11-2023 End: 04-12-2023 History of Social function [facility] Start: 01-13-2022 Gender identity Identifies as male gender (finding) [facility] Start: 01-13-2022 Sexual orientation Heterosexual (finding) [facility] Start: 06-12-2023 End: 12-21-2024 Alcohol intake Ex-drinker (finding) [facility] Within the last year , have you been afraid of your partner or ex-partner? No [facility] Do you belong to any clubs or organizations such as episcopal groups, unions, fraternal or athletic groups, or [...] Not at all [facility] (I/We) worried salome er (my/our) food would run out before (I/we) got money to buy more. Never true [facility] Start: 04-15-2023 Education 13 [facility] Start: 02-08-2023 Alcohol Comment Caffeine intake: 3 cups decaf per day [facility] Work Phone: Start: 07-30-2024 Sex Male (finding) [facility] Equipment Procedure Code Equipment Code Equipment Origin al Text Equipment Identifier Dates Clip Atriclip Gillinov-Minerva 180d Long 45mm 25mm Internal Head - [id number] Start: 06-19-2021 [place] Thk1.65mm P tfe 4x.5in Cardiovascular Sterile - [id number] Start: 06-19-2021 Ring Hanks Mc3 32mm Titanium Silicone Rubber Polyester Annuloplasty 1 - [id number] Start: 06-19-2021 Valve Hanks In spiris Resilia 25mm Pericardial Aortic Bioprosthesis - [id number] Start: 06-19-2021 Comment on above: Description: avr [id number] Hallie on [facility] - [id number] Start: 11-27-2023 Comment on above: Description: -0.15 Goals Date Patient Goal Desired Activity /State Personal health goal Functional Status Date Assessment Result Facility 12-21-2024 Patient Health [facility] ionnaire 2 item (PHQ-2) [Reported] [facility] 05-22-2022 Functional Status N/A [facility] 06-30-2021 Are you deaf, or do you have serious difficulty hearing No 06/30/2021 12:10 PM Clara Leong, PRISCA No [facility] 06-30-2021 Are you blind, or do you have serious difficulty seeing, even when wearing glasses No 06/30/2021 12:10 PM Clara Leong, PRISCA No [facility] 06-30-2021 Do you have serious difficulty walking or climbing stairs No 06/30/2021 12:10 PM Clara Leong, PRISCA No [facility] 06-30-2021 Do you have difficul ty dressing or bathing No 06/30/2021 12:10 PM Clara Leong, PRISCA No [facility] 06-30-2021 Because of a physica l, mental, or emotional condition, do you have difficulty doing errands alone such as visiting a physician's office or shopping No 06/30/2021 12:10 PM Clara Leong, PRISCA No [facility] Mental Status Date Assessment Result Facility 06-30-2021 Because of a physica l, mental, or emotional condition, do you have serious difficulty concentrating, remembering, or making decisions No 06/30/2021 12:10 PM Clara Leong, PRISCA No [facility] Clinical Notes 03-23-2021 to 01-05-2025 Patricia Archer APRN.[facility] - 01/05/2025 8:00 AM Adrienne Ontiveros MD - 12/21/2024 1:45 PM EDTTelephone Encounter - Alycia Wilde - 11/10/2024 3:08 PM EDTPatient InstructionsPatient Instructions Note Date & Type Note Facility 01-05-2025 History of Present illness Narrative Images from the original note were not included. [facility] Department of Cardiovascular Medicine SECTION OF CLINICAL CARDIOLOGY OUTPATIENT VISIT DATE January 05, 2025 OUTPATIENT VISIT TYPE ESTABLISHED PRIMARY CARE PHYSICIAN: Austen Ontiveros MD [address] [place] [id number] CHIEF COMPLAINT: Follow up HISTORY OF PRESENT ILLNESS: Mr. Torres is a 79 year old male patient of Dr. Goldberg and Dr. Bagley [facility] permanent atrial fibrillation, CAD (: s/p CABG x3, PECK to LAD, SVG to PDA, left radial artery to the obtuse marginal 1, TV repair with a ring, AVR with austen inspiris valve, left atrial appendage clip, cryo maze), hypertension, hyperlipidemia, mcfp anticoagulation, anemia who presents today for a cardiovascular medicine follow-up visit. In October he had a syncopal episode. He was sitting on the couch and jumped up quickly and ran to take the garbage out and felt dizzy and passed out for seconds. This was after he had just taken his albuterol. Another time he was lifting heavy weights for the tractor and went to walk and passed out. He was advised to the go to the ER but refused. Zio revealed atrial flutter 100% of the time. Avg Hr 81 BPM. 1 pause 3.3 s. Most triggered events were reasonably controlled HR. Today, he is very active. Can bike 20 miles without difficult He denies . chest pain, shortness of breath, edema, palpitations, lightheadedness or syncope PAST MEDICAL HISTORY Diagnosis Date A-fib ([facility]) 2005 Loaded with Dofetilide 07/19/13 (self converted to sinus rhythm after first dose) 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 ([facility]) 06/2021 s/p CABG x3, PECK to LAD, [...] 07/08/2006 TONSILLECTOMY & ADENOIDECTOMY <AGE 13 07/08/1956 SOCIAL HISTORY Social History Tobacco Use Smoking [...] Other Reaction(s): Urinary Retention Sulfamethoxazole-Tr* Unknown MEDICATIONS: cholecalciferol, vitamin D3, (VITAMIN D3 ORAL) Take by mouth. aspirin, enteric coated (ADULT LOW DOSE ASPIRIN) [...] VITAMIN ORAL) Take by mouth once daily. [place]-3 Fatty Acids-Vitamin E 1,000 mg cap Take 1 capsule by mouth twice daily. apixaban (ELIQUIS) 5 mg tab(s) Take 1 tablet by mouth two times a day. bisoprolol (ZEBETA) 10 mg tablet Take 1 tablet by mouth two times a day. rosuvastatin (CRESTOR) 10 mg tablet Take 1 tablet by mouth once daily. prednisoLONE acetate (PRED FORTE) 1 % ophthalmic suspension USE DIRECTED BY PHYSICIAN, IN OPERATIVE EYE, BEGINNING ONE DAY AFTER SURGERY keTORolac (ACULAR) 0.5 % ophthalmic solution USE DIRECTED BY PHYSICIAN, IN OPERATIVE EYE, BEGINNING ONE DAY AFTER SURGERY (Patient not taking: Reported on 01/05/2025) CARDIOVASCULAR MEDICINE TESTIN12/22/24 [facility] Enrollment Dates: 11/27/2024-12/11/2024 IRHYTHM FINDINGS: Atrial Flutter occurred continuously (100% burden), ranging from 35-120 bpm (avg of 81 bpm). Bundle Branch Block/IVCD was present. 1 Pause occurred lasting 3.3 secs (18 bpm). Isolated VEs were occasional (3.3%, [id number]), VE Couplets were rare (<1.0%, 167), and no VE Triplets were present. Ventricular Bigeminy and Trigeminy were present. Symptoms correlate with atrial flutter with modestly controlled V rates. REVIEW OF SYSTEMS: Complete ROS completed, pertinent items noted in HPI I have confirmed and edited as necessary the PFSH obtained by others. PHYSICAL EXAM: BP 128/72 (BP Site: Left Arm, BP Position: Sitting) Pulse 80 Wt 76.8 kg (169 lb 5 oz) BMI 22.34 kg/m Body mass index is 22.34 kg/m . GENERAL: Alert, no distress, cooperative SKIN: Skin color, texture, turgor normal. No rashes or lesions. NECK: No jugulovenous distention, No carotid bruits LUNGS: Lungs clear to auscultation. Good diaphragmatic excursion. CARDIAC: irregularly irregular, + murmur EXTREMITIES: no edema NEURO: Alert, oriented X 3 PULSES: 2+ radial Assessment and Plan Presents for follow up. Had 2 syncopal episodes recently. Recent zio with no significant arrhythmias. 100% burden of atrial flutter, rate controlled Rate controlled Atrial flutter s/p LA clipping Coronary artery disease s/p CABG PECK to LAD, SVG to PDA, left radial artery to the obtuse marginal Valvular disease s/p Tvr and bioprosthetic AV 2020 Pulmonary hypertension HLD HTN Syncope Syncope could possibly be vasovagal/catecholamine, zio with no significant arrhthymias and recent echo with no significant changes, if he has more reoccurrences can consider loop Follow up with Dr. Bagley for afib/flutter Continue eliquis 5 mg bid Bisoprolol 20 mg daily or 10 bid Update lipids Continue diet/exercise Follow up with Dr. Goldberg as scheduled and Dr. Bagley in the next 3-6 months CONTACT INFORMATION: Patricia Archer APRN.CNP I spent 35 minutes in the visit, with more than 50% of the total [id number] time of the visit in counseling / coordination of care. documented in this encounter [facility] 01-05-2025 Note HNO ID: [id number] Author: PATRICIA ARCHER APRN.CNP Service: ? Author Type: Nurse Practitioner Type: Progress Notes Filed: 01/05/2025 08:38 Note Text: [facility] Department of Cardiovascular Medicine SECTION OF CLINICAL CARDIOLOGY OUTPATIENT VISIT DATE January 05, 2025 OUTPATIENT VISIT TYPE ESTABLISHED PRIMARY CARE PHYSICIAN: Austen Ontiveros MD [address] [place] [address] CHIEF COMPLAINT: Follow up HISTORY OF PRESENT ILLNESS: Mr. Torres is a 79 year old male patient of Dr. Goldberg and Dr. Bagley [facility] permanent atrial fibrillation, CAD (: s/p CABG x3, PECK to LAD, SVG to PDA, left radial artery to the obtuse marginal 1, TV repair with a ring, AVR with edward inspiris valve, left atrial appendage clip, cryo maze), hypertension, hyperlipidemia, saddle cutter anticoagulation, anemia who presents today for a cardiovascular medicine follow-up visit. In October he had a syncopal episode. He was sitting on the couch and jumped up quickly and ran to take the garbage out and felt dizzy and passed out for seconds. This was after he had just taken his albuterol. Another time he was lifting heavy weights for the tractor and went to walk and passed out. He was advised to the go to the ER but refused. Zio revealed atrial flutter 100% of the time. Avg Hr 81 BPM. 1 pause 3.3 s. Most triggered events were reasonably controlled HR. Today, he is very active. Can bike 20 miles without difficult He denies . 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 aspirin, enteric coated (ADULT LOW DOSE ASPIRIN) [...] VITAMIN ORAL) Take by mouth once daily. [place]-3 Fatty Acids-Vitamin E 1,000 mg cap Take 1 capsule by mouth twice daily. apixaban (ELIQUIS) 5 mg tab(s) Take 1 tablet by mouth two times a day. bisoprolol (ZEBETA) 10 mg tablet Take 1 tablet by mouth two times a day. rosuvastatin (CRESTOR) 10 mg tablet Take 1 tablet by mouth once daily. prednisoLONE acetate (PRED FORTE) 1 % ophthalmic suspension USE DIRECTED BY PHYSICIAN, IN OPERATIVE EYE, BEGINNING ONE DAY AFTER SURGERY keTORolac (ACULAR) 0.5 % ophthalmic solution USE DIRECTED BY PHYSICIAN, IN OPERATIVE EYE, BEGINNING ONE DAY AFTER SURGERY (Patient not taking: Reported on 01/05/2025) CARDIOVASCULAR MEDICINE TESTIN12/22/24 [facility] Enrollment Dates: 11/27/2024-12/11/2024 IRHYTHM FINDINGS: Atrial Flutter occurred continuously (100% burden), ranging from 35-120 bpm (avg of 81 bpm). Bundle Branch Block/IVCD was present. 1 Pause occurred lasting 3.3 secs (18 bpm). Isolated VEs were occasional (3.3%, 69676), VE Couplets were rare (<1.0%, 167), a (more content not included)... [facility] 12-21-2024 History of Present illness Narrative Images from the original note were not included. Patient ID: Britta Torres is a 79 y.o. male who presents for: Pt called and stated he needed an appointment with . He had an episode on Saturday that he completely passed out and lost consciousness. He denies any vertigo at this time. Pt called from the hospital while at work and stated she wanted to advise EH about the entire episode because Laz does not remember all of it but it was witnessed by the neighbor and then her when he got back into the garage. She states that they had been out and about throughout the day and at this time she was inside and he was out in the yard with a drill in this hand and the neighbor said something to him and he turned to talk to him and the neighbor told him his eyes rolled into the back of his head and he fell straight back into the grass. The neighbors called 911 but pt had came to and stated he was okay and he didn't want to go to the hospital. When they got him into the garage he was forgetting things like that he had the drill or what he was even doing with it. His speech seemed to be scrambled a little and he forgot that they had two bikes in the garage instead of one. She states he kept insisting he was okay despite her encouragement to get checked out. On Saturday, he kept saying okay. They went to a ball game, but she states he was still forgetting things. He was asking her about a spoon scoop out of potato salad and forgot that he was the one who ate it. She states he has seen cardiology at [facility] back in November and they did a holter for 7 days but they have not called with results and he is scheduled for an ECHO in January. She states the reason she called was because he forgot that part of this even happened. Review of Systems Constitutional: Negative for activity change, appetite change, chills, fatigue and fever. Eyes: Negative for photophobia, discharge and visual disturbance. Respiratory: Negative for cough, shortness of breath and wheezing. Cardiovascular: Negative for chest pain and palpitations. Neurological: Negative for weakness, light-headedness and headaches. Psychiatric/Behavioral: Negative for confusion, decreased concentration and sleep disturbance. Objective The patient is pleasant and in no acute distress. The neck is supple and trachea is midline. No masses are appreciated. The heart is irregular rate and rhythm without S3, S4. No murmur. The patient has normal respiratory pattern. The breath sounds are symmetrical without evidence of rhonchi or rales. No wheezing. The skin is warm and dry. The lower extremities have trace edema. The patient has good eye contact and speech is clear. Appropriate affect. 04/04/2023 8:52 AM 04/15/2023 8:13 AM 05/16/2023 8:06 AM 04/07/2024 9:11 AM 04/28/2024 9:42 AM 11/02/2024 11:34 AM 12/21/2024 1:30 PM Vitals BMI 24.28 kg/m2 24.28 kg/m2 22.43 kg/m2 22.43 kg/m2 22.43 kg/m2 22.43 kg/m2 BSA (m2) 2.07 m2 2.07 m2 1.99 m2 1.99 m2 1.99 m2 1.99 m2 Systolic 134 120 120 Diastolic 82 70 68 Heart Rate 66 103 106 SpO2 96 % 97 % 95 % Height (in) 6' 1 6' 1 6' 1 6' 1 6' 1 6' 1 Weight (lb) 184 184 170 170 170 170 Visit Report Report Report Report Report Report Report Report Allergies Allergen Reactions Chlorpheniramine Other Reaction(s): Urinary Retention Niacin Other Reaction(s): Flush Pseudoephedrine Other Reaction(s): Urinary Retention Statins Other Reaction(s): Unknown Sulfamethoxazole Other Reaction(s): Constipated Trimethoprim Other Reaction(s): Unknown Current Outpatient Medications on File Prior to Visit Medication Sig Dispense Refill albuterol (2.5 MG/3ML) 0.083% nebulizer solution Take 3 mL (2.5 mg) by nebulization in the morning and 3 mL (2.5 mg) at noon and 3 mL (2.5 mg) in the evening and 3 mL (2.5 mg) before bedtime. 360 mL 0 albuterol 108 (90 Base) MCG/ACT inhaler Inhale 2 puffs every 6 (six) hours if needed for wheezing bisoprolol (Zebeta) 10 MG tablet Take 10 mg by mouth in the morning. TAKE 2 TABLETS BY MOUTH EVERY DAY Oral for 90 Days. CHELATED IRON PO Take by mouth. Eliquis 5 MG tablet Take 5 mg by mouth in the morning and 5 mg before bedtime. montelukast (Singulair) 10 MG tablet Take 1 tablet (10 mg) by mouth 1 (one) time each day at the same time. 90 tablet 1 omega-3 (Fish Oil) 1200 MG capsule Take 1 capsule by mouth 1 (one) time each day at the same time. rosuvastatin (Crestor) 20 MG tablet Take 1 tablet (20 mg) by mouth at bedtime. 90 tablet 1 No current facility-administered medications on file prior to visit. 1. Syncope and collapse (Primary) This is his 2nd event. There was no warning. It was witnessed. Denies description postictal state. Did not have lightheaded or dizziness prior to the event. No symptoms since being released from the emergency room. His cardiology visit next week. I recommended no driving until seen by Cardiology. He could have an event like this behind the wheel. I would not do any other activity which could not danger him such as swimming. This visit is prompted as a transition of care. The patient has been contacted by phone within 2 business days of discharge or at least 2 unsuccessful attempts were made to contact the patient within the 2 business days. Any available documents including; emergency room note, visit notes, consults, and discharge summary or continuity of care documents were reviewed. Any laboratory investigation or diagnostic imaging that was ordered by outside physicians and available was obtained and reviewed. The transition of care note is reviewed. a [id number] evaluation is done today. Medical decision making is complex in degree. 2. Longstanding persistent atrial fibrillation (HCC) Chronic problem that has been stable. He notes rare palpitations. Short-lived. Comanaged by Cardiology. 3. 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 There is no description of angina or anginal equivalents. 4. Mild persistent asthma without complication (HCC) Chronic problem that he has happy, he notes he is not using any maintenance medications now in it he only uses p.r.n. albuterol rarely. 5. RBBB (right bundle branch block) Chronic comorbid condition. documented in this encounter [facility] 11-27-2024 Note HNO ID: [id number] Author: ANA JARAMILLO RN Service: ? Author Type: Registered Nurse Type: Progress Notes Filed: 11/27/2024 08:43 Note Text: EVENT MONITOR DISPOSABLE PATCH INSTRUCTIONS Patient Name: Britta [facility] Number: [id number] Skin prepped and cleansed with alcohol Patch secured to prepped area Monitor Activated Serial #: [id number] Patient Instructed: Prescribed order timeframe Bathing guidelines Usage of event button and diary documentation Return of monitor at the end of prescribed order Call with problems [phone] or [phone]. [phone] Patient expresses a good understanding of instructions Ana Jaramillo RN [id number] [facility] 11-10-2024 Telephone encounter Note Spoke with patient - scheduled appointment with MAYANK Ladarius Beatty on 12/07 in [place]. [facility] 11-10-2024 Miscellaneous Notes Spoke with patient - scheduled appointment with MAYANK Ladarius Beatty on 12/07 in [place]. Spoke with patient. Feeling very well right now. No symptoms. Reiterated Dr. Lynch message to him regarding medications and monitor. Stressed the importance of going to the ER should he start having symptoms again. Will forward to scheduling to get him MAYANK appoint per Dr. Goldberg. Patient calling Dr. Goldberg regarding syncopal episode he had this morning running down the driveway with his trash cans so he didn't miss the garbage men. He felt dizzy and woke up on the ground after only a moment. His fall was witnessed and denies head injury. After his episode, he rode 17 miles on his bike without chest pain, sob or dizziness. Advised patient he should be checked out in the ER, he declines. On 11/02/24 he was diagnosed with bronchitis and placed on Cefuroxime and albuterol for 10 days. Current BP 126/74, HR 86. Patient reports feeling well. Patient is asking if he could decrease bisoprolol 10mg to 1.5 tablets per day preventatively. Patient phone: [phone] Pharmacy: [facility] GO TO THE EMERGENCY ROOM OR CALL 911 IF: * You develop any new symptoms * Your condition worsens * You are concerned or anxious about your condition for any other reason. If you have any questions, call back. documented in this encounter [facility] 11-04-2024 Telephone encounter Note Spoke with patient. Feeling very well right now. No symptoms. Reiterated Dr. Lynch message to him regarding medications and monitor. Stressed the importance of going to the ER should he start having symptoms again. Will forward to scheduling to get him MAYANK appoint per Dr. Goldberg. [facility] 11-04-2024 Telephone encounter Note Patient calling Dr. Goldberg regarding syncopal episode he had this morning running down the driveway with his trash cans so he didn't miss the garbage men. He felt dizzy and woke up on the ground after only a moment. His fall was witnessed and denies head injury. After his episode, he rode 17 miles on his bike without chest pain, sob or dizziness. Advised patient he should be checked out in the ER, he declines. On 11/02/24 he was diagnosed with bronchitis and placed on Cefuroxime and albuterol for 10 days. Current BP 126/74, HR 86. Patient reports feeling well. Patient is asking if he could decrease bisoprolol 10mg to 1.5 tablets per day preventatively. Patient phone: [phone] Pharmacy: [facility] GO TO THE EMERGENCY ROOM OR CALL 911 IF: * You develop any new symptoms * Your condition worsens * You are concerned or anxious about your condition for any other reason. If you have any questions, call back. [facility] Work Phone: 11-04-2024 Note HNO ID: [id number] Author: PAULETTE HOOPER MD Service: ? Author Type: Resource Type: Procedures Filed: 12/23/2024 18:02 Note Text: Patient Name: Britta Torres : 1945 Ordering Provider: Ever Goldberg Indication: T67.1XXA Heat syncope, initial encounter Type of Monitor: Extended Monitoring-Zio Patch Enrollment Dates: 11/27/2024-12/11/2024 IRHYTHM FINDINGS: Atrial Flutter occurred continuously (100% burden), ranging from 35-120 bpm (avg of 81 bpm). Bundle Branch Block/IVCD was present. 1 Pause occurred lasting 3.3 secs (18 bpm). Isolated VEs were occasional (3.3%, 43155), VE Couplets were rare (<1.0%, 167), and no VE Triplets were present. Ventricular Bigeminy and Trigeminy were present. Symptoms correlate with atrial flutter with modestly controlled V rates. Independently reviewed and verified Paulette Hooper MD December 23, 2024 6:01 PM SVE = supraventricular ectopic (PAC) VE = ventricular ectopic (PVC) [facility] 11-02-2024 History of Present illness Narrative Images from the original note were not included. Patient ID: Britta Torres is a 79 y.o. male who presents for: Upper Respiratory Infection Patient complains of symptoms of a URI. Symptoms include productive cough with green colored sputum, shortness of breath, and wheezing. Onset of symptoms was 1 week ago, and has been unchanged since that time. Treatment to date: none. Review of Systems Denies fever or chills. Does acknowledge more tired than usual. is still sick and she got the illness 1st. He denies nausea vomiting or diarrhea. Objective In general the patient is pleasant and in no acute distress. Bilateral ears, canals are within normal limits. Right TM is transparent and somewhat retracted. Left TM is transparent and somewhat retracted. No fluid layer. Bilateral nares demonstrate inflamed mucosa. Oropharynx has moist mucosa there is no specific evidence of thrush. There is mild erythema of the pharynx. Shoddy bilateral anterior cervical adenopathy. No signs of respiratory distress. Patient is speaking full sentences. There are asymmetrical breath sounds With a decrease in the right lower lung field. No rales are appreciated. No wheezes. He does have rhonchi in the right lower lung field. There is a subtle change to percussion note in the right lower lung field. Skin is warm and dry Visit Vitals Ht 6' 1 Wt 170 lb BMI 22.43 kg/m Smoking Status Never BSA 1.99 m Allergies Allergen Reactions Chlorpheniramine Other Reaction(s): Urinary Retention Niacin Other Reaction(s): Flush Pseudoephedrine Other Reaction(s): Urinary Retention Statins Other Reaction(s): Unknown Sulfamethoxazole Other Reaction(s): Constipated Trimethoprim Other Reaction(s): Unknown Current Outpatient Medications on File Prior to Visit Medication Sig Dispense Refill albuterol 108 (90 Base) MCG/ACT inhaler Inhale 2 puffs every 6 (six) hours if needed for wheezing bisoprolol (Zebeta) 10 MG tablet Take 10 mg by mouth in the morning. TAKE 2 TABLETS BY MOUTH EVERY DAY Oral for 90 Days. CHELATED IRON PO Take by mouth. Eliquis 5 MG tablet Take 5 mg by mouth in the morning and 5 mg before bedtime. montelukast (Singulair) 10 MG tablet Take 1 tablet (10 mg) by mouth 1 (one) time each day at the same time. 90 tablet 1 omega-3 (Fish Oil) 1200 MG capsule Take 1 capsule by mouth 1 (one) time each day at the same time. rosuvastatin (Crestor) 20 MG tablet Take 1 tablet (20 mg) by mouth at bedtime. 90 tablet 1 No current facility-administered medications on file prior to visit. 1. Pneumonia of right lower lobe due to infectious organism Acute problem. He is having trouble mobilizing some of his phlegm. He does have a nebulizer machine but no medication for it. We discussed using the medication 4 times a day for the next week. In prescribing a new medication consideration of the following encompasses moderate decision making: the current prescriptions and supplements, the current allergies and medication intolerances, the current medical conditions, and potential drug interactions. Risks, benefits, and reason for starting their medication were discussed. The patient was given a chance to ask questions today and all questions were answered. The patient is to contact us if any other questions arise or if any problems occur with the adjustment in their medication. - cefuroxime (Ceftin) 500 MG tablet; Take 1 tablet (500 mg) by mouth in the morning and 1 tablet (500 mg) before bedtime. Do all this for 10 days. Dispense: 20 tablet; Refill: 0 - albuterol (2.5 MG/3ML) 0.083% nebulizer solution; Take 3 mL (2.5 mg) by nebulization in the morning and 3 mL (2.5 mg) at noon and 3 mL (2.5 mg) in the evening and 3 mL (2.5 mg) before bedtime. Dispense: 360 mL; Refill: 0 2. Polypharmacy Chronic problem The patient meets the criteria for polypharmacy; 5 or more prescriptions or multi-morbidity defined as 5 or more diagnoses. Polypharmacy can significantly increase the risk of preventable adverse drug events and negatively impact adherence. Consideration of diverse factors such as clinician agreement, patient perspective, and de-prescribing, as appropriate can improve patient outcomes while simplifying care. This requires longitudinal monitoring as there is at least a moderate risk of morbidity and requires at least a moderate degree of evaluation and management. 3. BMI 22.0-22.9, adult 4. Mild persistent asthma without complication Comorbid condition that complicates evaluation formulation of a treatment plan. documented in this encounter [facility] 10-09-2024 Note HNO ID: [id number] Author: EVER GOLDBERG MD Service: ? Author Type: Physician Type: Progress Notes Filed: 10/09/2024 10:42 Note Text: Referring Physician: No referring provider defined for this encounter. Primary Care Physician: Austen Ontiveros MD, MD Britta Torres is a 79 year old male that presents today for followup of : The patient is a 79-year-old male with a history of paroxysmal atrial fibrillation, hypercholesterolemia, and right bundle branch block, presenting for follow-up. The patient reports feeling well overall and denies experiencing any episodes of atrial fibrillation, chest pain, dyspnea, or lower extremity edema. He notes that he is not always in atrial fibrillation and is often in normal sinus rhythm when he checks. Even during episodes of atrial fibrillation, he does not experience any limitations in his activities. He walks 4.5 miles daily and monitors his heart rate, which increases to about 109 bpm during exercise and returns to approximately 80 bpm afterward. He wears compression socks regularly. He adheres to a low-sodium diet, although he occasionally consumes salty foods. His most recent cholesterol level was 59 mg/dL, showing improvement. [facility] for a [facility] work[facility], including monitoring due to his use of Eliquis. He is currently taking Crestor 10 mg daily, which he achieves by splitting a 20 mg tablet in half. Labs: - Cholesterol: 59 mg/dL (improved) Imaging: - (February) Echocardiogram: Normal cardiac function with mild pulmonary valve insufficiency and no significant aortic valve gradient Tests: - (Today) EKG: Sinus rhythm, first-degree AV block, premature atrial contractions, and right bundle branch block, stable findings 1. 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 Patient is ambulatory, walking 4.5 miles daily without limitations. - Continue current management. 2. S/P AVR (Z95.2) Post-operative status following aortic valve replacement is stable. Recent echocardiogram shows no significant gradient in the aortic valve. - Schedule follow-up echocardiogram in May. 3. Pulmonary hypertension (HCC) (I27.20) Intermittent pulmonary valve insufficiency noted on echocardiogram, but no significant hemodynamic compromise observed. - Continue monitoring. 4. Paroxysmal A-fib (HCC) (I48.0) Intermittent episodes of atrial fibrillation; currently in sinus rhythm as confirmed by EKG. No associated symptoms such as palpitations, chest pain, or dyspnea. - Continue current management. 5. Chronic diastolic (congestive) heart failure (HCC) (I50.32) Clinically stable. No reports of edema; patient is using compression stockings and adhering to a low-sodium diet. - Continue current management. 6. long-term (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 anticoagulants (Z79.01) On Eliquis for anticoagulation. No reported complications or side effects. - Continue Eliquis. - Ordered lab work to monitor anticoagulation status. Current Medications: Current Medications 10/09/2024 CARDIOVASCULAR Medication Dosage Pharm Subclass bisoprolol (ZEBETA) 10 mg tablet Take 2 tablets by mouth once daily. Beta Blockers Cardiac Selective rosuvastatin (CRESTOR) 10 mg tablet Take 1 tablet by mouth once daily. Antihyperlipidemic - HMG CoA Reductase Inhibitors (statins) ANTI-PLATELET THERAPIES Medication Dosage Pharm Subclass aspirin, enteric coated (ADULT LOW DOSE ASPIRIN) 81 mg EC tablet Take 1 tablet by mouth every other day. Salicylate Analgesics ANTICOAGULANTS Medication Dosage Pharm Subclass apixaban (ELIQUIS) 5 mg tab(s) Take 1 tablet by mouth two times a day. Direct Factor Xa Inhibitors ASPIRIN Medication Dosage Pharm Subclass aspirin, enteric coated (ADULT LOW DOSE ASPIRIN) 81 mg EC tablet Take 1 tablet by mouth every other day. Salicylate Analgesics OTHER Medication Dosage Pharm Subclass CALCIUM CARBONATE/VITAMIN D3 (VITAMIN D-3 ORAL) Take 2,000 Units by mouth twice daily. Minerals and Electrolytes - Calcium Replacement/Vitamin D Combinations cholecalciferol, vitamin D3, (VITAMIN D3 ORAL) Take by mouth. Vitamins - D Derivatives ferrous sulfate (IRON ORAL) Take by mouth. Minerals and Electrolytes - Iron keTORolac (ACULAR) 0.5 % ophthalmic solution USE DIRECTED BY PHYSICIAN, IN OPERATIVE EYE, BEGINNING ONE DAY AFTER SURGERY Ophthalmic - Anti-inflammatory, NSAIDs montelukast 10 mg tablet Take 10 mg by mouth daily at bedtime. Asthma Therapy - Leukotriene Receptor Antagonists MULTIVIT ANDMINERALS/FERROUS FUM (MULTI VITAMIN ORAL) Take by mouth once daily. Multivitamin and Mineral Combinations [place]-3 Fatty Acids-Vitamin E 1,000 mg cap Take 1 capsule by mouth twice daily. Antihyperlipidemic Agents - Dietary Source Combinations prednisoLONE acetate (PRED FORTE) 1 % ophthalmic suspension USE DIR (more content not included)... [facility] 10-09-2024 History of Present illness Narrative Referring Physician: No referring provider defined for this encounter. Primary Care Physician: Austen Ontiveros MD, Britta Torres is a 79 year old male that presents today for followup of : The patient is a 79-year-old male with a history of paroxysmal atrial fibrillation, hypercholesterolemia, and right bundle branch block, presenting for follow-up. The patient reports feeling well overall and denies experiencing any episodes of atrial fibrillation, chest pain, dyspnea, or lower extremity edema. He notes that he is not always in atrial fibrillation and is often in normal sinus rhythm when he checks. Even during episodes of atrial fibrillation, he does not experience any limitations in his activities. He walks 4.5 miles daily and monitors his heart rate, which increases to about 109 bpm during exercise and returns to approximately 80 bpm afterward. He wears compression socks regularly. He adheres to a low-sodium diet, although he occasionally consumes salty foods. His most recent cholesterol level was 59 mg/dL, showing improvement. He is scheduled [facility] for a blood workup, including monitoring due to his use of Eliquis. He is currently taking Crestor 10 mg daily, which he achieves by splitting a 20 mg tablet in half. Labs: - Cholesterol: 59 mg/dL (improved) Imaging: - (February) Echocardiogram: Normal cardiac function with mild pulmonary valve insufficiency and no significant aortic valve gradient Tests: - (Today) EKG: Sinus rhythm, first-degree AV block, premature atrial contractions, and right bundle branch block, stable findings 1. 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 Patient is ambulatory, walking 4.5 miles daily without limitations. - Continue current management. 2. S/P AVR (Z95.2) Post-operative status following aortic valve replacement is stable. Recent echocardiogram shows no significant gradient in the aortic valve. - Schedule follow-up echocardiogram in May. 3. Pulmonary hypertension (HCC) (I27.20) Intermittent pulmonary valve insufficiency noted on echocardiogram, but no significant hemodynamic compromise observed. - Continue monitoring. 4. Paroxysmal A-fib (HCC) (I48.0) Intermittent episodes of atrial fibrillation; currently in sinus rhythm as confirmed by EKG. No associated symptoms such as palpitations, chest pain, or dyspnea. - Continue current management. 5. Chronic diastolic (congestive) heart failure (HCC) (I50.32) Clinically stable. No reports of edema; patient is using compression stockings and adhering to a low-sodium diet. - Continue current management. 6. 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 No reported complications or side effects. - Continue Eliquis. - Ordered lab work to monitor anticoagulation status. Current Medications: Current Medications 10/09/2024 CARDIOVASCULAR Medication Dosage Pharm Subclass bisoprolol (ZEBETA) 10 mg tablet Take 2 tablets by mouth once daily. Beta Blockers Cardiac Selective rosuvastatin (CRESTOR) 10 mg tablet Take 1 tablet by mouth once daily. Antihyperlipidemic - HMG CoA Reductase Inhibitors (statins) ANTI-PLATELET THERAPIES Medication Dosage Pharm Subclass aspirin, enteric coated (ADULT LOW DOSE ASPIRIN) 81 mg EC tablet Take 1 tablet by mouth every other day. Salicylate Analgesics ANTICOAGULANTS Medication Dosage Pharm Subclass apixaban (ELIQUIS) 5 mg tab(s) Take 1 tablet by mouth two times a day. Direct Factor Xa Inhibitors ASPIRIN Medication Dosage Pharm Subclass aspirin, enteric coated (ADULT LOW DOSE ASPIRIN) 81 mg EC tablet Take 1 tablet by mouth every other day. Salicylate Analgesics OTHER Medication Dosage Pharm Subclass CALCIUM CARBONATE/VITAMIN D3 (VITAMIN D-3 ORAL) Take 2,000 Units by mouth twice daily. Minerals and Electrolytes - Calcium Replacement/Vitamin D Combinations cholecalciferol, vitamin D3, (VITAMIN D3 ORAL) Take by mouth. Vitamins - D Derivatives ferrous sulfate (IRON ORAL) Take by mouth. Minerals and Electrolytes - Iron keTORolac (ACULAR) 0.5 % ophthalmic solution USE DIRECTED BY PHYSICIAN, IN OPERATIVE EYE, BEGINNING ONE DAY AFTER SURGERY Ophthalmic - Anti-inflammatory, NSAIDs montelukast 10 mg tablet Take 10 mg by mouth daily at bedtime. Asthma Therapy - Leukotriene Receptor Antagonists MULTIVIT &MINERALS/FERROUS FUM (MULTI VITAMIN ORAL) Take by mouth once daily. Multivitamin and Mineral Combinations [place]-3 Fatty Acids-Vitamin E 1,000 mg cap Take 1 capsule by mouth twice daily. Antihyperlipidemic Agents - Dietary Source Combinations prednisoLONE acetate (PRED FORTE) 1 % ophthalmic suspension USE DIRECTED BY PHYSICIAN, IN OPERATIVE EYE, BEGINNING ONE DAY AFTER SURGERY Ophthalmic - Anti-inflammatory, Glucocorticoids tamsulosin HCl (FLOMAX ORAL) Take 0.4 mg by mouth once daily. Prostatic Hypertrophy Agent - [id number] Antagonists General: Alert & oriented, no acute distress Skin: Normal HEENT: Pupils equal, round. Oral cavity, oropharynx clear Neck: Supple, no mass Breast: Deferred Respiratory: Clear to auscultation, bilaterally Cardiovascular: Jugular venous pressure normal. Regular rate and rhythm, normal S1 and S2, no murmurs or added sounds. Split second heart sound noted, consistent with right bundle branch block. Intermittent pulmonary valve insufficiency noted. No significant gradient in aortic valve. Abdomen: Soft, non-tender, non-distended, no masses palpable, no hepatosplenomegaly, normal bowel sounds Genitourinary: Deferred MSK: No joint swelling, erythema, or tenderness Extremities: No clubbing, cyanosis, or edema Labs: - Cholesterol: 59 mg/dL (improved) Imaging: - (February) Echocardiogram: Normal cardiac function with mild pulmonary valve insufficiency and no significant aortic valve gradient Tests: - (Today) EKG: Sinus rhythm, first-degree AV block, premature atrial contractions, and right bundle branch block, stable findings Allergies: ALLERGIES Allergen Reactions Deconamine [Chlorph* Unknown Niaspan [Niacin] Unknown Pseudoephedrine Unknown Other Reaction(s): Urinary Retention Sulfamethoxazole-Tr* Unknown Social History Tobacco Use Smoking status: Never Smokeless tobacco: Never Substance Use Topics Alcohol use: Yes Comment: rare beer after mowing lawn in summer Drug use: No LIPIDS: Triglycerides, Nonfasting (mg/dL) Date Value 08/09/2023 66 Total Cholesterol, Nonfasting (mg/dL) Date Value 08/09/2023 152 HDL Cholesterol, Nonfasting (mg/dL) Date Value 08/09/2023 57 LDL Cholesterol, Nonfasting (mg/dL) Date Value 08/09/2023 82 Ever Goldberg MD The patient consented to the use of Missing[employer] software for draft documentation of the visit consistent with [facility] s Notice of Privacy Practices. documented in this encounter [facility] 07-23-2024 Telephone encounter Note I called and reviewed with him. I believe he is fairly covered in these these guys were just irritated. He does note he has been covering them and they do seem significantly better to him. There is no cancer on the tissue exam. We did discuss how he has many actinic keratoses over a significant amount of his body. We should continue to monitor his skin. In the meantime though I remember when he follow recommendations and used Amlactin previously and really had great resolution to this. I recommended to him that he get on this and stay on this for awhile to try and get all of this calm back down. He has agreed to do this. [facility] 07-23-2024 Miscellaneous Notes I called and reviewed with him. I believe he is fairly covered in these these guys were just irritated. He does note he has been covering them and they do seem significantly better to him. There is no cancer on the tissue exam. We did discuss how he has many actinic keratoses over a significant amount of his body. We should continue to monitor his skin. In the meantime though I remember when he follow recommendations and used Amlactin previously and really had great resolution to this. I recommended to him that he get on this and stay on this for awhile to try and get all of this calm back down. He has agreed to do this. documented in this encounter [facility] 07-14-2024 History of Present illness Narrative Images from the original note were not included. Patient ID: Britta Torres is a 79 y.o. male who presents for: Skin Cancer Screening Patient is here today for a skin examination for the purpose of screening for skin cancer. She/He has a history of heavy sun exposure. She/He is in the sun frequently. She/He uses sunscreen rarely. She/He reports two spots he would like bx before he sees the plastic surgeon . Her/His moles are increasing in number of lesions. Specifically he does have a lesion on his right leg that is biopsy positive for squamous cell carcinoma. He has already seen Plastic surgery and we will be getting an excision. He is concerned the 2 lesions on his left leg may also be cancers. Objective On examination on the left proximal and lateral aspect of his leg he does have 2 prominent lesions. They are crusted in violaceous . They are raised in the center. They are fairly circular with fairly smooth borders. No melanotic coloring noted. Visit Vitals Smoking Status Never Allergies Allergen Reactions Chlorpheniramine Other Reaction(s): Urinary Retention Niacin Other Reaction(s): Flush Pseudoephedrine Other Reaction(s): Urinary Retention Statins Other Reaction(s): Unknown Sulfamethoxazole Other Reaction(s): Constipated Trimethoprim Other Reaction(s): Unknown Current Outpatient Medications on File Prior to Visit Medication Sig Dispense Refill albuterol 108 (90 Base) MCG/ACT inhaler Inhale 2 puffs every 6 (six) hours if needed for wheezing bisoprolol (Zebeta) 10 MG tablet Take 10 mg by mouth in the morning. TAKE 2 TABLETS BY MOUTH EVERY DAY Oral for 90 Days. CHELATED IRON PO Take by mouth. Eliquis 5 MG tablet Take 5 mg by mouth in the morning and 5 mg before bedtime. montelukast (Singulair) 10 MG tablet Take 1 tablet (10 mg) by mouth 1 (one) time each day at the same time. 90 tablet 1 omega-3 (Fish Oil) 1200 MG capsule Take 1 capsule by mouth 1 (one) time each day at the same time. rosuvastatin (Crestor) 20 MG tablet Take 1 tablet (20 mg) by mouth at bedtime. 90 tablet 1 No current facility-administered medications on file prior to visit. 1. Neoplasm, uncertain whether benign or malignant After discussion, we have mutually agreed to punch biopsy of both of these. We will take it near the edge of the lesion. The patient and I had conversation that this is a diagnostic endeavor and not an endeavor to remove the lesions. The risks were discussed and include; bruising/bleeding ( which he is at increased risk for with the Eliquis), infection, scarring, nerve damage, and nondiagnostic results. The patient was given a chance to ask questions and all questions were answered. The patient has given verbal consent to proceed. The areas are cleansed with alcohol until the pad is clear. Local anesthesia with Xylocaine 2% with epinephrine is injected subdermally until both areas to be biopsied has at least a 1- 2 mm circumferential blanching. Following this, with clean technique, a 4 mm punch is utilized to penetrate the dermis. The lesion is then elevated and removed with scissors. This is repeated on the 2nd lesion. Any bleeding is controlled with pressure and a nitrate cautery stick as needed. The wounds are then dressed. Wound care is advised. CPT 10041 - Tissue exam; Future - Tissue exam 2. Changing skin lesion As above - Tissue exam; Future - Tissue exam 3. Personal history of skin cancer Comorbid condition - Tissue exam; Future - Tissue exam documented in this encounter [facility] 06-18-2024 Telephone encounter Note Information faxed to [facility] 06-18-2024 Miscellaneous Notes Information faxed to [facility] documented in this encounter [facility] 06-15-2024 Note HNO ID: [id number] Author: DHARMESH BAGLEY MD Service: ? Author Type: Physician Type: Progress Notes Filed: 06/15/2024 12:54 Note Text: Britta Torres is a 79-year-old man with chronic atrial fibrillation, status post CABG and aortic valve replacement. Over the last few months, bisoprolol was increased to the current dose of 20 mg daily and ventricular rate control is much improved. He has had no unexpected bleeding or excessive bruising on Eliquis and aspirin. My cardiology colleague Dr. 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 He walks 4 miles daily without exertional symptoms. Medications: Reviewed. Physical examination: He looks well. Blood pressure 130/80, pulse rate 78 and irregular. Lungs: No wheezes, rales or rhonchi. Heart: Fixed splitting of the second sound with accentuation of S2. Short systolic ejection murmur. Impression and plan: Continue current rate control and anticoagulation. I will see him again in [address] [facility] 06-15-2024 History of Present illness Narrative Britta Torres is a 79-year-old man with chronic atrial fibrillation, status post CABG and aortic valve replacement. Over the last few months, bisoprolol was increased to the current dose of 20 mg daily and ventricular rate control is much improved. He has had no unexpected bleeding or excessive bruising on Eliquis and aspirin. My cardiology colleague Dr. 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 He walks 4 miles daily without exertional symptoms. Medications: Reviewed. Physical examination: He looks well. Blood pressure 130/80, pulse rate 78 and irregular. Lungs: No wheezes, rales or rhonchi. Heart: Fixed splitting of the second sound with accentuation of S2. Short systolic ejection murmur. Impression and plan: Continue current rate control and anticoagulation. I will see him again in 1 year. documented in this encounter [facility] 04-28-2024 History of Present illness Narrative Images from the original note were not included. Patient ID: Britta Torres is a 79 y.o. male who presents for: Pt is here today for two punch bx on the left side of his neck and then on the bottom of his right leg. He has had previous bx back in 01/2023 on his right arm. Review of Systems Constitutional: Negative for chills and fever. Respiratory: Negative for cough, shortness of breath and wheezing. Cardiovascular: Negative for chest pain and palpitations. Gastrointestinal: Negative for abdominal pain. Genitourinary: Negative for frequency and urgency. Objective He is in no distress. He has a significant amount of sun damage and related lesions on his skin diffuse In the left lower neck region at the base of the [place] than is a 1.2 cm red scaly lesion. It has some irregularities to. It appears different than his other lesions. On his right lower leg distal 3rd near the ankle and medially located is a proximally a 1.6-1.8 cm lesion. This lesion is raised with some irregularity and scale. It is pink in color. Visit Vitals Smoking Status Never Allergies Allergen Reactions Chlorpheniramine Other Reaction(s): Urinary Retention Niacin Other Reaction(s): Flush Pseudoephedrine Other Reaction(s): Urinary Retention Statins Other Reaction(s): Unknown Sulfamethoxazole Other Reaction(s): Constipated Trimethoprim Other Reaction(s): Unknown Current Outpatient Medications on File Prior to Visit Medication Sig Dispense Refill albuterol 108 (90 Base) MCG/ACT inhaler Inhale 2 puffs every 6 (six) hours if needed for wheezing bisoprolol (Zebeta) 10 MG tablet Take 10 mg by mouth in the morning. TAKE 2 TABLETS BY MOUTH EVERY DAY Oral for 90 Days. CHELATED IRON PO Take by mouth. Eliquis 5 MG tablet Take 5 mg by mouth in the morning and 5 mg before bedtime. montelukast (Singulair) 10 MG tablet Take 1 tablet (10 mg) by mouth 1 (one) time each day at the same time. 90 tablet 1 omega-3 (Fish Oil) 1200 MG capsule Take 1 capsule by mouth 1 (one) time each day at the same time. rosuvastatin (Crestor) 20 MG tablet Take 1 tablet (20 mg) by mouth at bedtime. 90 tablet 1 No current facility-administered medications on file prior to visit. 1. Neoplasm, uncertain whether benign or malignant After discussing both lesions with him perform punch biopsy. The patient and I had conversation that this is a diagnostic endeavor and not an endeavor to remove the lesion. The risks were discussed and include; bruising/bleeding, infection, scarring, nerve damage, and nondiagnostic results. The patient was given a chance to ask questions and all questions were answered. The patient has given verbal consent to proceed. Both areas are cleansed with alcohol until the pad is clear. Local anesthesia with Xylocaine 2% with epinephrine is injected subdermally until the areas to be biopsied has at least a 1- 2 mm circumferential blanching. Following this, with clean technique, a 4 mm punch is utilized to penetrate the dermis. The lesion is then elevated and removed with scissors. We 1st did the left neck lesion, and then we did the right leg lesion. Any bleeding is controlled with pressure and a nitrate cautery stick as needed. The wound is then dressed. Wound care is advised. - Tissue exam; Future - Tissue exam 2. Changing skin lesion As above - Tissue exam; Future - Tissue exam 3. Polypharmacy Above and specifically noting on. 4. BMI 22.0-22.9, adult documented in this encounter [facility] 04-07-2024 History of Present illness Narrative Images from the original note were not included. Subjective : Chief Complaint: Britta Torres is an 79 y.o. male here for an annual wellness visit. I have reviewed and reconciled the history and medication list with the patient today. Current Outpatient Medications Medication Sig Dispense Refill bisoprolol (Zebeta) 10 MG tablet Take 10 mg by mouth in the morning. TAKE 2 TABLETS BY MOUTH EVERY DAY Oral for 90 Days. CHELATED IRON PO Take by mouth. Eliquis 5 MG tablet Take 5 mg by mouth in the morning and 5 mg before bedtime. montelukast (Singulair) 10 MG tablet Take 1 tablet (10 mg) by mouth 1 (one) time each day at the same time. 90 tablet 1 omega-3 (Fish Oil) 1200 MG capsule Take 1 capsule by mouth 1 (one) time each day at the same time. rosuvastatin (Crestor) 20 MG tablet Take 1 tablet (20 mg) by mouth at bedtime. 90 tablet 1 albuterol 108 (90 Base) MCG/ACT inhaler Inhale 2 puffs every 6 (six) hours if needed for wheezing No current facility-administered medications for this visit. Review of Systems Unremarkable except as noted. List of current healthcare providers: Patient Care Team: Austen Ontiveros MD as PCP - General (Family Medicine) Austen Ontiveros MD as PCP - ACO Reach Medicare Annual Visit Over the past 2 weeks, how often have you been bothered by any of the following problems? Little interest or pleasure in doing things: Not at all Feeling down, depressed, or hopeless: Not at all Patient Health Questionnaire-2 Score: 0 Joyce Fall Risk History of Falling, Immediate or Within 3 Months: No Secondary Diagnosis: No Ambulatory Aid: Walks without aid/bedrest/nurse assist Intravenous Therapy/Heparin Lock: No Gait/Transferring: Normal/bedrest/immobile Mental Status: Oriented to own ability Joyce Fall Risk Score: 0 Health Risk Assessment Form Do you need help eating, bathing, using the toilet, dressing, or getting around your home?: No Can you prepare your own meals?: Yes Can you do your own housework without help?: Yes Can you shop for groceries or clothes without help?: Yes Do you exercise for about 20 minutes 3 or more days a week?: Yes How confident are you that you can control and manage most of your health problems?: Very confident Can you mange your money, credit cards and accounts, pay bills and taxes?: Yes Vision Screening: Yes, patient sees regular 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 rigger/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 poisoner Hearing Screening: Yes, concerned about hearing loss Cognitive Screening Self Assessment: No concerns rasied by family members, friends, or caretakers Three Word Registration: Banana, [place], Chair Clock Drawing: Normal Clock - 2 Three Word Recall: All 3 words correct - 3 Total Score (0-5 Points): 5 Pain Assessment Pain Score: 0 - No pain Advance Care Planning Do you have a living will?: Yes Do you have a medical power of ship cleaner?: Yes Who is your medical power of ship cleaner?: Son and Daughter Objective : BP 120/68 Pulse 103 Ht 6' 1 Wt 170 lb SpO2 97% BMI 22.43 kg/m No results found. Physical Exam The patient is pleasant and in no acute distress The patient does not appear to have a gross neurologic deficit. The patient has good eye contact and clear speech He had does have 2 skin lesions that are itchy/painful. Left upper chest wall and left lateral leg. The primary area on the left chest wall is brown somewhat raised and scaly appearing consistent with an irritated seborrheic keratosis. However along the upper margin there is a macular blackish brown segment that extends confluently from this lesion that is totally different in appearance. It is asymmetrical. The lesion on his leg is a little over a cm in size. Has a central dimple is pink in his hypervascular around the raised borders. Assessment/Plan : The following health maintenance schedule was reviewed with the patient and provided in printed form in the after visit summary: Health Maintenance Topic Date Due Medicare Annual Wellness (AWV) 01/03/2024 Influenza Vaccine (1) 06/02/2024 (Originally 03/08/2024) Pneumococcal Vaccine: 65+ Years Completed 1. Encounter for Medicare annual wellness exam The patient is here for their Annual Medicare Wellness visit. Demographics were updated. Self-assessment was completed and reviewed. Past medical, family, and social history were updated. The medication list updated and reviewed by the doctor. A list of other current medical providers is established and updated. Time was spent discussing health maintenance issues, ordering testing as appropriate, and a schedule was reviewed regarding recommended screening. We discussed safety issues and fall risk. Depression screening was completed and addressed as appropriate. Fall screening was completed and addressed. Cognitive function was assessed by direct observation, cognitive screening as indicated, and assessment of ability to perform ADL's. The BMI and discussed. Major risk factors for chronic disease including family history were discussed. An after visit summary is made available to the patient 2. Advance directive in chart No changes to advanced directives 3. Encounter for screening for other disorder Clinically insignificant depression screening 4. Screening for alcohol problem Negative alcohol abuse screen 5. Postinflammatory pulmonary fibrosis (CMS/HCC) Chronic pulmonary problem, stable, monitored longitudinally. 6. Mild persistent asthma without complication (CMS/HCC) Chronic pulmonary problem, stable, monitored longitudinally. He notes specifically that he has can rarely used and can not remember the last time he has needed his albuterol since beyond the Singulair daily. 7. Lung granuloma (CMS/HCC) Chronic pulmonary problem, stable, monitored longitudinally. 8. Pulmonary hypertension (CMS/HCC) Chronic pulmonary problem, stable, monitored longitudinally. 9. 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 No specific signs of angina or anginal equivalents 10. Chronic diastolic heart failure (CMS/HCC) Chronic problem, stable, primarily managed by Cardiology. 11. Bilateral carotid artery stenosis Chronic problem, stable, primarily managed by Cardiology. 12. Primary hypertension (CMS/HCC) Chronic problem, stable,co-managed by Cardiology. 13. Longstanding persistent atrial fibrillation (CMS/HCC) Chronic problem, stable, primarily managed by Cardiology. 14. Abdominal aortic ectasia (CMS/HCC) Chronic problem, stable, he has had fairly stable renal function. He has no evidence of claudication in the extremities or evidence of embolization. 15. Mixed hyperlipidemia (CMS/HCC) Chronic problem, stable, primarily managed by Cardiology. 16. Changing pigmented skin lesion Both of these lesions are somewhat concerning. I do think the primary lesion in the chest wall is a seborrheic keratosis however I am concerned about this macular asymmetric almost black appearing lesion at the upper border, and I have recommended punch biopsy for diagnostic evaluation. He has multiple actinic keratoses scattered. I suspect however that the lesion on his left leg has turned into a basal cell carcinoma. I have recommended that we also do punch biopsy at the same time as above for diagnostic purposes. He will schedule back for this. Electronically signed by Austen Ontiveros MD on April 07, 2024 documented in this encounter [facility] 03-19-2024 Telephone encounter Note Scripts faxed to number provided with confirmation. Called patient and updated him, pt thankful [facility] 03-19-2024 Miscellaneous Notes Scripts faxed to number [...] his but Britta's have to go to [place]. [facility] fax [phone]. Please advise. Patient has been identified by name and birthdate. Duration of symptoms: N/A Person calling: self Call patient at: on cell [phone] (home) [phone] (cell) Was an appointment scheduled: No Closing statement: Results or non-symptom based questions: Thank you for calling [facility], your call will be returned within the next business day. - Sowmya Dunn - documented in this encounter [facility] 03-19-2024 Telephone encounter Note The following approved [...] once daily. Authorizing Provider: BRANDY MCKEON APRN.CNP [facility] 03-19-2024 Telephone encounter Note Pended scripts, will ask Brandy Mckeon CNP in office for help [facility] 03-19-2024 Telephone encounter Note Britta is calling Patricia Archer APRN.CNP today saying that the 3 prescriptions sent on 03/16/24 went to the wrong pharmacy. Meds is for his but Britta's have to go to [place]. [facility] fax [phone]. Please advise. Patient has been identified by name and birthdate. Duration of symptoms: N/A Person calling: self Call patient at: on cell [phone] (home) [phone] (cell) Was an appointment scheduled: No Closing statement: Results or non-symptom based questions: Thank you for calling [facility], your call will be returned within the next business day. - Sowmya Dunn - [facility] 03-16-2024 Telephone encounter Note Labs faxed with fax confirmation [facility] 03-16-2024 Miscellaneous Notes Labs faxed with fax confirmation Britta is calling Patricia Archer APRN.CNP today to request lab orders to be faxed over to [facility]. Please advise. Fax number: [phone] Patient has been identified by name and birthdate. Duration of symptoms: N/A Person calling: self Call patient at: at home [phone] (home) [phone] (cell) Was an appointment scheduled: No Closing statement: Results or non-symptom based questions: Thank you for calling [facility], your call will be returned within the next business day. Thank you, Mouna Gomez documented in this encounter [facility] 03-16-2024 Telephone encounter Note Britta is calling Patricia Archer APRN.CNP today to request lab orders to be faxed over to [facility]. Please advise. Fax number: [phone] Patient has been identified by name and birthdate. Duration of symptoms: N/A Person calling: self Call patient at: at home [phone] (home) [phone] (cell) Was an appointment scheduled: No Closing statement: Results or non-symptom based questions: Thank you for calling [facility], your call will be returned within the next business day. Thank you, Mouna Gomez [facility] 03-16-2024 History of Present illness Narrative Images from the original note were not included. [facility] Department of Cardiovascular Medicine SECTION OF CLINICAL CARDIOLOGY OUTPATIENT VISIT DATE March 16, 2024 OUTPATIENT VISIT TYPE ESTABLISHED PRIMARY CARE PHYSICIAN: Austen Ontiveros MD [address] [place] [address] CHIEF COMPLAINT: Follow up HISTORY OF PRESENT ILLNESS: Mr. Torres is a 78 year old male patient of Dr. Goldberg and Dr. Bagley [facility] of permanent atrial fibrillation (rate control strategy, [id number]: 2%), known CAD (: s/p CABG x3, PECK to LAD, SVG to PDA, left radial artery to the obtuse marginal 1, TV repair with a ring, AVR with austen inspiris valve, left atrial appendage clip, cryo maze), preserved LV systolic heart function (echo: 2021: EF 56%, pulmonary hypertension RVSP 49mmHg, LA severely dilated), hypertension, hyperlipidemia, saddle cutter anticoagulation, anemia who presents today for a [...] or syncope. PAST MEDICAL HISTORY 2006: A-fib ([facility]) Comment: Loaded with Dofetilide 07/19/13 (self converted to sinus rhythm after first dose) 06/2021: 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) Comment: s/p [...] VITAMIN ORAL) Take by mouth once daily. [place]-3 Fatty Acids-Vitamin E 1,000 mg cap Take [...] - echo completed recently tricuspid valve repair / gradients, aortic valve gradients / mild MR, TR, PH, trace LA - euvolemic on exam, NT pro BNP [...] sooner if needed CONTACT INFORMATION: Patricia Archer APRN.CNP I spent 29 minutes in the visit, with more than 50% of the total [id number]-if-[id number] time of the visit in counseling / coordination of care. documented in this encounter [facility] 03-16-2024 Note HNO ID: [id number] Author: PATRICIA ARCHER APRN.CNP Service: ? Author Type: Nurse Practitioner Type: Progress Notes Filed: 03/16/2024 09:27 Note Text: [facility] Department of Cardiovascular Medicine SECTION OF CLINICAL CARDIOLOGY OUTPATIENT VISIT DATE March 16, 2024 OUTPATIENT VISIT TYPE ESTABLISHED PRIMARY CARE PHYSICIAN: Austen Ontiveros MD [address] [place] [address] CHIEF COMPLAINT: Follow up HISTORY OF PRESENT ILLNESS: Mr. Torres is a 78 year old male patient of Dr. Goldberg and Dr. Bagley [facility] of permanent atrial fibrillation (rate control strategy, [id number]: 2%), known CAD (: s/p CABG x3, PECK to LAD, SVG to PDA, left radial artery to the obtuse marginal 1, TV repair with a ring, AVR with edward inspiris valve, left atrial appendage clip, cryo maze), preserved LV systolic heart function (echo: 2021: EF 56%, pulmonary hypertension RVSP 49mmHg, LA severely dilated), hypertension, hyperlipidemia, saddle cutter anticoagulation, anemia who presents today for a [...] or syncope. PAST MEDICAL HISTORY 2005: A-fib ([facility]) Comment: Loaded with Dofetilide 07/19/13 (self converted to sinus rhythm after first dose) 06/2021: 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 ([facility]) Comment: s/p CABG x3, PECK to LAD, [...] VITAMIN ORAL) Take by mouth once daily. [place]-3 Fatty Acids-Vitamin E 1,000 mg cap Take [...] TESTING: Echo 03/04/2024 8:19 AM - [facility], [facility] In Impression CONCLUSIONS: - Exam indication: Routine surveillance of moderate or severe valvular regurgitation (>1yr) - The left ventricle is normal in size. There is mild concentric left ventricular hypertrophy. Left ventricular systolic function is mildly decreased. EF = 52 ? 5% (2D biplane) - The ri (more content not included)... [facility] 01-29-2024 Telephone encounter Note Pt has a [...] a day No fevers (97.6 F orally troday) No chills, no SOB/CP, LH, headaches runny [...] as scheduled barring any issues or illness [facility] 01-29-2024 Miscellaneous Notes Pt has a Stress [...] a day No fevers (97.6 F orally troday) No chills, no SOB/CP, LH, headaches runny [...] issues or illness documented in this encounter [facility] 11-15-2023 Note Date of Procedure 11/15/2023. 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 Notes Measurements only - see Procedure Record under Scanned Documents for signed results. [facility] 11-15-2023 History of Present illness Narrative CONFIRM AIM PLANO RIGHT EYE. ABHISHEK Rocha documented in this encounter [facility] 11-15-2023 History and physical note Images from [...] POWER CALCULATION at the request of Dr. Mary Senior V for consultation. 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 Taking Yes [place]-3 Fatty Acids-Vitamin E 1,000 mg cap Take [...] fevers. Neuro: No history of TIA's, stroke, CUFF SETTER OVERLOCK tumor, impaired sensorium, hemiplegia, paraplegia or quadraplegia. [...] 382 QTC Calculation (Bazett) 457 Calculated R [place] 58 Calculated T [place] 35 Impression ATRIAL FIBRILLATION COMPLETE RIGHT BUNDLE [...] instructions and voices comprehension and compliance. SIGNATURE: Manuela Barba APRN.CNP PATIENT NAME: Britta Torres DATE: 11/15/2023 TIME: 12:54 PM T [facility] 11-15-2023 History and physical note Images from [...] POWER CALCULATION at the request of Dr. Mary Senior V for consultation. 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 Taking Yes [place]-3 Fatty Acids-Vitamin E 1,000 mg cap Take 1 capsule by mouth twice daily. Taking Yes No medication comments found. ALLERGIES Allergen Reactions Deconamine [Chlorph* Unknown Niaspan [Niacin] Unknown Pseudoephedrine Unknown Other Reaction(s): Urinary Retention Sulfamethoxazole-Tr* Unknown Covid Immunization Dates Overdue - Covid-19 Vaccine () Overdue since 03/08/2023 05/01/2022 Imm Admin: COVID-19 [...] fevers. Neuro: No history of TIA's, stroke, CUFF SETTER OVERLOCK tumor, impaired sensorium, hemiplegia, paraplegia or quadraplegia. [...] 382 QTC Calculation (Bazett) 457 Calculated R [place] 58 Calculated T [place] 35 Impression ATRIAL FIBRILLATION COMPLETE RIGHT BUNDLE BRANCH BLOCK ABNORMAL ECG Confirmed by STEFAN TINEO, JULIO ([id number]) on 06/11/2023 7:02:50 PM 01/18/2022 9:44 AM - [facility], [facility] In Impression CONCLUSIONS: - Exam [...] index is 0.62. Prior AV pk/mn gradients / mmHg. - Exam was compared with the [...] instructions and voices comprehension and compliance. SIGNATURE: Manuela Barba APRN.CNP PATIENT NAME: Britta Torres DATE: 11/15/2023 TIME: 12:54 PM documented in this encounter [facility] 11-15-2023 Instructions Manuela Barba APRN.CNP - 11/15/2023 12:50 PM EDT PATIENT PREOPERATIVE INSTRUCTIONS Mary Senior V, MD has scheduled you for your procedure at this surgery center: [facility]: [phone] --[address] [facility]. [facility] [place] [address]. Please read below carefully for your personalized [...] Procedures: - YOU MUST HAVE A RESPONSIBLE POWER TRANSFORMER REPAIRER TAKE YOU HOME. A AUGER PRESS OPERATOR OR ARMATURE WINDER CANNOT BE MADE A RESPONSIBLE POWER TRANSFORMER REPAIRER. - We recommend that a responsible person stays with you overnight to take care of you. - You cannot stay in a hotel alone after outpatient surgery. You will not be permitted to have your surgery, if you do not have someone to take care of you. If you already have an Advance Directive, please fax a copy to [phone] or email to for it to be [...] and scanned into your chart that day. Manuela Barba APRN.CARMEN documented in this encounter [facility] 09-05-2023 Miscellaneous Notes Received lab results from [facility]. Already scanned into chart but will give to in office to review. documented in this encounter [facility] 09-03-2023 Miscellaneous Notes Addended by: LIBIA HERNÁNDEZ on: 09/03/2023 03:38 PM Modules accepted: Orders documented in this encounter [facility] 09-03-2023 Instructions Mary Senior V, MD - 09/03/2023 3:27 PM [...] so we recommend you come with a pile driver operator. You will then be scheduled for a follow up in approximately one week. If you notice any of the following symptoms of retinal detachment, please call our office at : - Flashes of light - Increased number of floaters or large floaters - Curtains, veils, or spider web pattern over vision documented in this encounter [facility] 09-03-2023 History of Present illness Narrative The documentation for this note was completed by Glo Harris, COA acting as a scribe for Mary SENIOR MD. 09/03/2023 2:55 PM. ASSESSMENT / PLAN: 1. Combined cataract, right eye - Offered cataract extraction by phacoemulsification and intraocular lens implant with Dr. Senior, right eye, right eye first - Aim: [place] - Flomax/alpha-beth? Yes - Toric candidate: No - PanOptix candidate: No - Anesthesia: Topical with MAC - Contact lens use No - History of LASIK/PRK/RK No - Discussed initiate twice daily eyelid scrubs pending U/S biometry and surgery - Comanage with Dr Stallings; [facility] POD #1 Cataract Presurgical Documentation Cataract: Right [...] patient was offered a surgery/procedure at a [facility] facility. The surgeon/proceduralist and patient have discussed [...] patient was offered a surgery/procedure at a [facility] facility. The surgeon/proceduralist and patient have discussed [...] consent form. -F/U 1 week with Chandrakant Peetrsen) I have confirmed and edited as necessary [...] agree with all of its relevant components. Mary SENIOR MD September 03, 2023 2:55 PM ASSESSMENT/PLAN: 1. Left posterior capsular opacification - ICD9: 366.50, ICD10: H26.492 (primary diagnosis) 2. Pseudophakia, left eye - ICD9: V43.1, ICD10: Z96.1 PEcIOL in [place] ~2-3 yrs ago ++Posterior capsular opacity Left eye Yag evaluation with Dr Mary Senior today 3. Combined forms of 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 - ICD9: 366.19, ICD10: H25.811 Cataract evaluation OD today September 03, 2023 2:48 PM documented in this encounter [facility] 08-09-2023 History of Present illness Narrative Referring [...] V43.3, ICD10: Z95.2 (primary diagnosis) Echo in [facility] Clinically no stenosis - ECHO 2. 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 [place]-3 Fatty Acids-Vitamin E 1,000 mg cap Take [...] Ever Goldberg MD documented in this encounter [facility] 06-07-2023 Instructions Amy Subramanian APRN.PA[employer]AT LINING - 06/07/2023 9:12 AM EST Please schedule a follow up with Dr. Bagley in one year Let us know if symptoms reoccur and heart rates sustaining greater than 110 documented in this encounter [facility] 06-07-2023 History of Present illness Narrative Images from the original note were not included. [facility] Department of Cardiovascular Medicine SECTION OF CARDIAC PACING and ELECTROPHYSIOLOGY OUTPATIENT VISIT DATE June 07, 2023 OUTPATIENT VISIT TYPE ESTABLISHED PRIMARY CARE PHYSICIAN: Austen Ontiveros MD [address] [place] [address] CHIEF COMPLAINT: follow up permanent atrial fibrillation HISTORY OF PRESENT ILLNESS: Mr. Torres is a 78 year old male who presents today for followed by Dr. Goldberg, Dr. Bagley for permanent atrial fibrillation (rate control strategy, [id number]: 2%), known CAD (: s/p CABG x3, PECK to LAD, SVG to PDA, left radial artery to the obtuse marginal 1, TV repair with a ring, AVR with austen inspiris valve, left atrial appendage clip, cryo maze), preserved LV systolic heart function (echo: 2021: EF 56%, pulmonary hypertension RVSP 49mmHg, LA severely dilated), Other PMH of hypertension, hyperlipidemia, saddle cutter anticoagulation, anemia. 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 [place]-3 Fatty Acids-Vitamin E 1,000 mg cap Take [...] of permanent atrial fibrillation (rate control strategy, [id number]: 2%), known CAD (: s/p CABG x3, PECK to LAD, SVG to PDA, left radial artery to the obtuse marginal 1, TV repair with a ring, AVR with edward inspiris valve, left atrial appendage clip, cryo maze), preserved LV systolic heart function (echo: 2021: EF 56%, pulmonary hypertension RVSP 49mmHg, LA severely dilated), Other PMH of hypertension, hyperlipidemia, saddle cutter anticoagulation, h/o anemia, BP high end to [...] with more than 50% of the total [id number] time of the visit in counseling / coordination of care. CONTACT INFORMATION: Amy Subramanian APRN.CNP, 06/07/23 [facility] Cardiology Second Floor [address] [place] [address] documented in this encounter [facility] 03-04-2023 Miscellaneous Notes Scripts printed and signed [...] [facility] [phone]. [facility] and needs letter of support of why patient is on both medications above. Please fax to [phone]. documented in this encounter [facility] 11-21-2022 Miscellaneous Notes The following approved medication [...] 1.22 mg/dL Final documented in this encounter [facility] 06-13-2022 Note OPERATIVE NOTE OPERATION DATE: 06/13/2022 [...] in good health. CC: Austen Ontiveros M.D. [facility] 06-04-2022 History of Present illness Narrative Referring Physician: SELF Primary Care Physician: Austen Ontiveros MD, MD Britta Seth Toni is a 77 year old male that [...] home ASSESSMENT/PLAN: 1. 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 [facility] Comment on above: Result Comment: Elec [...] not included. Agnes Stephens RN Avw Card Recreation Teacher; Sowmya Tijerina APRN.PASTER HAT LINING 18 hours ago (2:47 PM) LS No notes have addressed the patients question regarding gi work up. The Eliquis has not been addressed. Sowmya routed a message only to Danyell Downs. So nobody else saw it until patient called again and then the message was rerouted back to AVW nurses. Original message was on 11/4. Thanks, Agnes I reviewed the message Patient permanent atrial fibrillation GFR January 2022 >60 Patient ok to have colonoscopy and EGD, unsure why would he have to wait a year. Recommendation: ok to hold the apixaban for one to two day prior to the procedure and restart that day ok by GI thank you Aym Subramanian APRN.CNP Patient waiting to hear back [...] true or not . His number is [phone] Thank you so much Quita Miller PSS documented in this encounter [facility] 04-11-2022 Miscellaneous Notes Requested Prescriptions Signed Prescriptions [...] 1.22 mg/dL Final documented in this encounter [facility] 01-18-2022 Instructions Ever Goldberg V, MD - [...] appt soon ] documented in this encounter [facility] 01-18-2022 History of Present illness Narrative Referring Physician: Amy Subramanian [address] [facility] [address] Primary Care Physician: Austen Ontiveros MD, MD Britta Ann Toni is a 76 year old male that [...] better ASSESSMENT/PLAN: 1. 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 He would benefit in purchasing Kardia mobile to check heart rates with symptom changes 6. I will FYI Dr. Bagley 7. If he needs a refill metoprolol let us know thank you Amy Subramanian APRN.PASTER HAT LINING Patient calling States for past 10 days [...] as listed Patient can be reached at [phone], may leave a message documented in this encounter [facility] 10-23-2021 Miscellaneous Notes Pt called in asking [...] pt is requesting it be sent to [facility] in [place] ([address] [place] [address], ). If there are any questions or concerns please contact the pt. Thank you! documented in this encounter [facility] 06-20-2021 History of Past i llness Narrative [...] 06/23; remains in AF. Adequate hemodynamics in pala rhythm. Echo w/ RV mildly dilated, RV [...] of this encounter (statuses as of 10/23/2021) [facility] History of Past illness Narrative* Problem Noted [...] 06/23; remains in AF. Adequate hemodynamics in pala rhythm. Echo w/ RV mildly dilated, RV [...] of this encounter (statuses as of 12/26/2021) [facility] History of Past illness Narrative* Problem Noted [...] 06/23; remains in AF. Adequate hemodynamics in pala rhythm. Echo w/ RV mildly dilated, RV [...] of this encounter (statuses as of 01/18/2022) [facility] History of Past illness Narrative* Problem Noted [...] 06/23; remains in AF. Adequate hemodynamics in pala rhythm. Echo w/ RV mildly dilated, RV [...] of this encounter (statuses as of 03/01/2022) [facility] History of Past illness Narrative* Problem Noted [...] 06/23; remains in AF. Adequate hemodynamics in pala rhythm. Echo w/ RV mildly dilated, RV [...] of this encounter (statuses as of 04/11/2022) [facility] History of Past illness Narrative* Problem Noted [...] 06/23; remains in AF. Adequate hemodynamics in pala rhythm. Echo w/ RV mildly dilated, RV [...] of this encounter (statuses as of 05/22/2022) [facility] History of Past illness Narrative* Problem Noted [...] 06/23; remains in AF. Adequate hemodynamics in pala rhythm. Echo w/ RV mildly dilated, RV [...] of this encounter (statuses as of 06/04/2022) [facility] History of Past illness Narrative* Problem Noted [...] 06/23; remains in AF. Adequate hemodynamics in pala rhythm. Echo w/ RV mildly dilated, RV [...] of this encounter (statuses as of 08/31/2022) [facility] History of Past illness Narrative* Problem Noted [...] 06/23; remains in AF. Adequate hemodynamics in pala rhythm. Echo w/ RV mildly dilated, RV [...] of this encounter (statuses as of 11/22/2022) [facility] History of Past illness Narrative* Problem Noted [...] 06/23; remains in AF. Adequate hemodynamics in pala rhythm. Echo w/ RV mildly dilated, RV [...] of this encounter (statuses as of 02/13/2023) [facility] History of Past illness Narrative* Problem Noted [...] 06/23; remains in AF. Adequate hemodynamics in pala rhythm. Echo w/ RV mildly dilated, RV [...] of this encounter (statuses as of 03/05/2023) [facility] History of Past illness Narrative* Problem Noted [...] 06/23; remains in AF. Adequate hemodynamics in pala rhythm. Echo w/ RV mildly dilated, RV [...] of this encounter (statuses as of 06/07/2023) [facility] History of Past illness Narrative* Problem Noted [...] 06/23; remains in AF. Adequate hemodynamics in pala rhythm. Echo w/ RV mildly dilated, RV [...] of this encounter (statuses as of 08/09/2023) [facility] History of Past illness Narrative* Problem Noted [...] 06/23; remains in AF. Adequate hemodynamics in pala rhythm. Echo w/ RV mildly dilated, RV [...] of this encounter (statuses as of 09/04/2023) [facility] History of Past illness Narrative* Problem Noted [...] 06/23; remains in AF. Adequate hemodynamics in pala rhythm. Echo w/ RV mildly dilated, RV [...] of this encounter (statuses as of 09/05/2023) [facility] NoteHNO ID: [id number] Author: Sheryl Negrete RN Service: Nursing Author Type: Registered Nurse Type: Nursing Progress Note Filed: 03/22/2021 8:06 AM Note Text: Page sent to Dr. 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)- Primary Nonrheumatic aortic valve stenosis Aortic valve disorders S/P AVR (aortic valve replacement) Heart valve replaced by other means Pulmonary hypertension (HCC) Other chronic pulmonary heart diseases Atrial fibrillation, persistent (HCC) Atrial fibrillation Chronic diastolic (congestive) heart failure (HCC) [facility] Atrial fibrillation, persistent (HCC)- Primary Atrial fibrillation [facility] Diagnosis Medication refill [Z76.0 (ICD-10-CM)]- Primary Issue of repeat prescriptions [facility] Diagnosis Medication management [Z79.899 (ICD-10-CM)]- Primary Encounter for long-term (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 other medications [facility]* Diagnosis 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)- Primary S/P AVR (aortic valve replacement) bio Heart valve replaced by other means Pulmonary hypertension (HCC) Other chronic pulmonary heart diseases Chronic a-fib (HCC) Atrial fibrillation Pure hypercholesterolemia [facility] Diagnosis Chronic atrial fibrillation (HCC)- Primary Atrial fibrillation [facility] Diagnosis Medication refill [Z76.0]- Primary Issue of repeat prescriptions [facility] Diagnosis Permanent atrial fibrillation (HCC)- Primary Atrial fibrillation Essential hypertension Unspecified essential hypertension [facility] Diagnosis S/P AVR- Primary Heart valve replaced by other means 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) Pulmonary hypertension (HCC) Other chronic pulmonary heart diseases Chronic a-fib (HCC) Atrial fibrillation Pure hypercholesterolemia Other forms of dyspnea [facility] Diagnosis Left posterior capsular opacification- Primary After-cataract, unspecified Pseudophakia, left eye Lens replaced by other means Combined forms of 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 Other and combined forms of senile cataract [facility]* Diagnosis Combined forms of 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 Other and combined forms of senile cataract Combined forms of 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 Other and combined forms of senile cataract [facility] Diagnosis Pre-operative clearance- Primary Preoperative examination, unspecified Chronic a-fib (HCC) Atrial fibrillation 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 Follows cardiology, Dr. Goldberg, Compliant on medications. Appears euvolemic, denies new or worsening cardiac symptoms. Ejection Fraction - Result: 56 % Date: 01/18/2022 Time: 07:57:34 * Assessment & Plan Note - Manuela Barba APRN.CNP - 11/14/2023 10:06 AM EDTAssociated Problem(s): Iron deficiency anemia, unspecified Stable on iron supplement Hemoglobin (g/dL) Date Value 01/18/2022 12.9 07/05/2021 10.1 Hematocrit (%) Date Value 01/18/2022 41.2 07/05/2021 32.2 WBC (k/uL) Date Value 01/18/2022 4.66 07/05/2021 7.13 * Assessment & Plan Note - Manuela Barba APRN.CNP - 11/14/2023 10:05 AM EDTAssociated Problem(s): HTN (hypertension) Stable on medication Today To take medication morning of surgery * Assessment & Plan Note - Manuela Barba APRN.CNP - 11/14/2023 10:05 AM EDTAssociated Problem(s): Aortic valve stenosis History: Echo with severe and trace AR. Assessment: 06/19/2021: AVR (#25 Inspiris) Plan: Daily ASA Follows with Dr. 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 Goldberg * Assessment & Plan Note - Manuela Barba APRN.CNP - 11/14/2023 10:04 AM EDTAssociated Problem(s): Hyperlipidemia Stable on medication * Assessment & Plan Note - Manuela Barba APRN.CNP - 11/14/2023 9:56 AM EDTAssociated Problem(s): Permanent atrial fibrillation (HCC) History of A-fib, rate controlled On eliquis Follows with Dr. 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) Primary hypertension Unspecified essential hypertension Pure hypercholesterolemia History of cardioversion Personal history of surgery to heart and great vessels, presenting hazards to health Permanent atrial fibrillation (HCC) Atrial fibrillation Aortic valve stenosis, etiology of cardiac valve disease unspecified Pulmonary hypertension (HCC) Other chronic pulmonary heart diseases 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 [facility]* Diagnosis Pre-operative clearance- Primary Preoperative examination, unspecified Chronic a-fib (HCC) Atrial fibrillation 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) Primary hypertension Unspecified essential hypertension Pure hypercholesterolemia History of cardioversion Personal history of surgery to heart and great vessels, presenting hazards to health Permanent atrial fibrillation (HCC) Atrial fibrillation Aortic valve stenosis, etiology of cardiac valve disease unspecified Pulmonary hypertension (HCC) Other chronic pulmonary heart diseases Current use of saddle cutter anticoagulation- Primary Long-term (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 anticoagulants [facility]* Diagnosis Encounter for Medicare annual wellness exam- Primary Advance directive in chart Encounter for screening for other disorder Screening for alcohol problem Screening for alcoholism 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 Mild persistent asthma without complication (CMS/HCC) Lung granuloma (CMS/HCC) Pulmonary hypertension (CMS/HCC) Other chronic pulmonary heart diseases 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 (CMS/HCC) Chronic diastolic heart failure (CMS/HCC) Chronic diastolic heart failure Bilateral carotid artery stenosis Occlusion and stenosis of carotid artery without mention of cerebral infarction Primary hypertension (CMS/HCC) Unspecified essential hypertension Longstanding persistent atrial fibrillation (CMS/HCC) Abdominal aortic ectasia (CMS/HCC) Abdominal aortic ectasia Mixed hyperlipidemia (CMS/HCC) Mixed hyperlipidemia Changing pigmented skin lesion [facility] Diagnosis Neoplasm, uncertain whether benign or malignant Changing skin lesion Unspecified disorder of skin and subcutaneous tissue Polypharmacy Issue of repeat prescriptions BMI 22.0-22.9, adult [facility]* Diagnosis Pre-operative clearance- Primary Preoperative examination, unspecified Chronic a-fib (HCC) Atrial fibrillation 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) Primary hypertension Unspecified essential hypertension Pure hypercholesterolemia History of cardioversion Personal history of surgery to heart and great vessels, presenting hazards to health Permanent atrial fibrillation (HCC) Atrial fibrillation Aortic valve stenosis, etiology of cardiac valve disease unspecified Pulmonary hypertension (HCC) Other chronic pulmonary heart diseases Atrial fibrillation, chronic (HCC)- Primary Atrial fibrillation [facility]* Diagnosis Neoplasm, uncertain whether benign or malignant Changing skin lesion Unspecified disorder of skin and subcutaneous tissue Personal history of skin cancer Personal history of other malignant neoplasm of skin [facility] noteNo assessment information availableSuburban [facility] Work Phone: Evaluation note* Diagnosis Pre-operative clearance- Primary Preoperative examination, unspecified Chronic a-fib (HCC) Atrial fibrillation 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 Primary hypertension Unspecified essential hypertension Pure hypercholesterolemia History of cardioversion Personal history of surgery to heart and great vessels, presenting hazards to health Permanent atrial fibrillation (HCC) Atrial fibrillation Aortic valve stenosis, etiology of cardiac valve disease unspecified Pulmonary hypertension (HCC) Other chronic pulmonary heart diseases 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 S/P AVR Heart valve replaced by other means Pulmonary hypertension (HCC) Other chronic pulmonary heart diseases Paroxysmal A-fib (HCC) Atrial fibrillation Chronic diastolic (congestive) heart failure (HCC) 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 Long-term (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 anticoagulants [facility]* Diagnosis Pneumonia of right lower lobe due to infectious organism- Primary Polypharmacy Issue of repeat prescriptions BMI 22.0-22.9, adult Mild persistent asthma without complication ([facility]/HCC) documented [facility] this encounter [facility]* Diagnosis Pre-operative clearance- Primary Preoperative examination, unspecified Chronic a-fib (HCC) Atrial fibrillation 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 Primary hypertension Unspecified essential hypertension Pure hypercholesterolemia History of cardioversion Personal history of surgery to heart and great vessels, presenting hazards to health Permanent atrial fibrillation (HCC) Atrial fibrillation Aortic valve stenosis, etiology of cardiac valve disease unspecified Pulmonary hypertension (HCC) Other chronic pulmonary heart diseases Heat syncope, initial encounter- Primary 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 [facility]* Diagnosis Syncope and collapse- Primary Longstanding persistent atrial fibrillation (HCC) 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 Mild persistent asthma without complication (HCC) RBBB (right bundle branch block) Right bundle branch block [facility] Diagnosis Pre-operative clearance- Primary Preoperative examination, unspecified Chronic a-fib (HCC) Atrial fibrillation 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 Primary hypertension Unspecified essential hypertension Pure hypercholesterolemia History of cardioversion Personal history of surgery to heart and great vessels, presenting hazards to health Permanent atrial fibrillation (HCC) Atrial fibrillation Aortic valve stenosis, etiology of cardiac valve disease unspecified Pulmonary hypertension (HCC) Other chronic pulmonary heart diseases Chronic a-fib (HCC)- Primary Atrial fibrillation Primary hypertension Unspecified essential hypertension Aortic valve stenosis, etiology of cardiac valve disease unspecified 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 documented in this encounter [facility] Discharge instructions No data available for this section [facility] General Surgery TM Progress note No data available for this section [facility] Surgery [employer] Reason for referral (narrative)* Outpatient Procedure (Routine) - Pending Review Specialty Diagnoses / Procedures Referred By Sandhya ann [facility] Diagnoses Chronic atrial fibrillation (HCC) Procedures ECG COMPLETE ECG ROUTINE ECG W/LEAST 12 LDS W/I&[place] [address] [place] [address] [facility] [address] [place] [id number] Referral ID Status Reason Start Date Expiration Date Visits Requested Visits Authorized [id number] Pending Review Auto-Generat ed Referral 08/31/2022 08/31/2023 1 1 [facility] Outpatient Procedure (Routine) - Pending Review Specialty Diagnoses / Procedures Referred By Sandhya ann Referred To Contact [facility] Diagnoses Permanent atrial fibrillation (HCC) Procedures ECG COMPLETE ECG ROUTINE ECG W/LEAST 12 LDS W/I&R Amy Subramanian APRN.CNP [address] [place] [address] [address] [place] [address] Referral ID Status Reason Start Date Expiration Date Visits Requested Visits Authorized [id number] Pending Review Auto-Generat ed Referral 06/07/2023 06/06/2024 [facility] Procedure (Routine) - Authorized Specialty Diagnoses / Procedures Referred By Contac t Referred To Contact [facility] Diagnoses S/P AVR Pulmonary hypertension (HCC) Procedures ECHO ECHO TTHRC R-T 2D W/WOM-MODE COMPL SPEC&[place] [address] [place] [address] [facility] [address] [place] [address] Referral ID Status Reason Start Date Expiration Date Visits Requested Visits Authorized [id number] Authorized Auto-Generat ed Referral 08/09/2023 08/08/2024 1 1 [facility] Summary Purpose Family History No Family History Records FoundNo Family History Records FoundNo Family History Records FoundNo Family History Records FoundNo Family History Records FoundNo Family History Records FoundNo Family History Records FoundNo Family History Records Found Advance Directives Documents on File Type Date Recorded 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 Advance Directive(s) 06/07/2021 2:19 PM Advance Directive(s) 05/29/2021 3:32 PM Advance Directive(s) 03/30/2021 6:38 AM Advance Directive(s) 03/28/2021 3:26 PM Documents on File Type Date Recorded 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 Power of Power Transformer Repairer 01/02/2023 1:48 PM Advance Directives and Living Will 12/13/2021 2021-12-11 Power Of Power Transformer Repairer Power of Power Transformer Repairer 12/11/2021 11:29 AM Documents on File Type Date Recorded 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 Power of Power Transformer Repairer 01/02/2023 1:48 PM Advance Directives and Living Will 12/13/2021 2021-12-11 Power Of Power Transformer Repairer Power of Power Transformer Repairer 12/11/2021 11:29 AM Additional Source Comments (unrecognized sect ion and content) No Status Records FoundNo Status Records FoundNo Status Records FoundNo Status Records FoundNo Status Records FoundNo Status Records FoundNo Status Records FoundNo Status Records Found INFORMATION SOURCE (unrecogn ized section and content) DATE CREATED AUTHOR 04/07/2021 [facility] DATE CREATED AUTHOR AUTHOR'S ORGANIZ ATION 06/18/2022 [facility] DATE CREATED AUTHOR AUTHOR'S ORGANIZ ATION 10/14/2022 [facility] DATE CREATED AUTHOR AUTHOR'S ORGANIZ ATION 08/10/2023 [facility] DATE CREATED AUTHOR AUTHOR'S ORGANIZ ATION 07/23/2024 [facility] DATE CREATED AUTHOR AUTHOR'S ORGANIZ ATION 08/09/2024 [facility] DATE CREATED AUTHOR AUTHOR'S ORGANIZ ATION 12/23/2024 [facility] DATE CREATED AUTHOR AUTHOR'S ORGANIZ ATION 01/06/[address] [facility] Source Comments (unrecognize d section and content) In the event this informatio n is protected by the Federal Confidentiality of Alcohol and Drug Abuse Patient Records regulations: The Federal rules restrict any use of the information to criminally investigate or prosecute any alcohol or drug abuse patient.[facility] HealthcareIn the event this information is protected by the Federal Confidentiality of Alcohol and Drug Abuse Patient Records regulations: The Federal rules restrict any use of the information to criminally investigate or prosecute any alcohol or drug abuse patient.[facility] HealthcareIn the event this information is protected by the Federal Confidentiality of Alcohol and Drug Abuse Patient Records regulations: The Federal rules restrict any use of the information to criminally investigate or prosecute any alcohol or drug abuse patient.[facility] HealthcareIn the event this information is protected by the Federal Confidentiality of Alcohol and Drug Abuse Patient Records regulations: The Federal rules restrict any use of the information to criminally investigate or prosecute any alcohol or drug abuse patient.[facility] HealthcareIn the event this information is protected by the Federal Confidentiality of Alcohol and Drug Abuse Patient Records regulations: The Federal rules restrict any use of the information to criminally investigate or prosecute any alcohol or drug abuse patient.[facility] HealthcareIn the event this information is protected by the Federal Confidentiality of Alcohol and Drug Abuse Patient Records regulations: The Federal rules restrict any use of the information to criminally investigate or prosecute any alcohol or drug abuse patient.[facility] HealthcareIn the event this information is protected by the Federal Confidentiality of Alcohol and Drug Abuse Patient Records regulations: The Federal rules restrict any use of the information to criminally investigate or prosecute any alcohol or drug abuse patient.[facility] HealthcareIn the event this information is protected by the Federal Confidentiality of Alcohol and Drug Abuse Patient Records regulations: The Federal rules restrict any use of the information to criminally investigate or prosecute any alcohol or drug abuse patient.[facility] HealthcareIn the event this information is protected by the Federal Confidentiality of Alcohol and Drug Abuse Patient Records regulations: The Federal rules restrict any use of the information to criminally investigate or prosecute any alcohol or drug abuse patient.[facility] HealthcareIn the event this information is protected by the Federal Confidentiality of Alcohol and Drug Abuse Patient Records regulations: The Federal rules restrict any use of the information to criminally investigate or prosecute any alcohol or drug abuse patient.[facility] HealthcareIn the event this information is protected by the Federal Confidentiality of Alcohol and Drug Abuse Patient Records regulations: The Federal rules restrict any use of the information to criminally investigate or prosecute any alcohol or drug abuse patient.[facility] HealthcareIn the event this information is protected by the Federal Confidentiality of Alcohol and Drug Abuse Patient Records regulations: The Federal rules restrict any use of the information to criminally investigate or prosecute any alcohol or drug abuse patient.[facility] HealthcareIn the event this information is protected by the Federal Confidentiality of Alcohol and Drug Abuse Patient Records regulations: The Federal rules restrict any use of the information to criminally investigate or prosecute any alcohol or drug abuse patient.[facility] HealthcareIn the event this information is protected by the Federal Confidentiality of Alcohol and Drug Abuse Patient Records regulations: The Federal rules restrict any use of the information to criminally investigate or prosecute any alcohol or drug abuse patient.[facility] HealthcareIn the event this information is protected by the Federal Confidentiality of Alcohol and Drug Abuse Patient Records regulations: The Federal rules restrict any use of the information to criminally investigate or prosecute any alcohol or drug abuse patient.[facility] HealthcareIn the event this information is protected by the Federal Confidentiality of Alcohol and Drug Abuse Patient Records regulations: The Federal rules restrict any use of the information to criminally investigate or prosecute any alcohol or drug abuse patient.[facility] HealthcareIn the event this information is protected by the Federal Confidentiality of Alcohol and Drug Abuse Patient Records regulations: The Federal rules restrict any use of the information to criminally investigate or prosecute any alcohol or drug abuse patient.[facility] HealthcareIn the event this information is protected by the Federal Confidentiality of Alcohol and Drug Abuse Patient Records regulations: The Federal rules restrict any use of the information to criminally investigate or prosecute any alcohol or drug abuse patient.[facility] HealthcareIn the event this information is protected by the Federal Confidentiality of Alcohol and Drug Abuse Patient Records regulations: The Federal rules restrict any use of the information to criminally investigate or prosecute any alcohol or drug abuse patient.[facility] HealthcareIn the event this information is protected by the Federal Confidentiality of Alcohol and Drug Abuse Patient Records regulations: The Federal rules restrict any use of the information to criminally investigate or prosecute any alcohol or drug abuse patient.[facility] HealthcareIn the event this information is protected by the Federal Confidentiality of Alcohol and Drug Abuse Patient Records regulations: The Federal rules restrict any use of the information to criminally investigate or prosecute any alcohol or drug abuse patient.[facility] HealthcareIn the event this information is protected by the Federal Confidentiality of Alcohol and Drug Abuse Patient Records regulations: The Federal rules restrict any use of the information to criminally investigate or prosecute any alcohol or drug abuse patient.[facility] HealthcareIn the event this information is protected by the Federal Confidentiality of Alcohol and Drug Abuse Patient Records regulations: The Federal rules restrict any use of the information to criminally investigate or prosecute any alcohol or drug abuse patient.[facility] HealthcareIn the event this information is protected by the Federal Confidentiality of Alcohol and Drug Abuse Patient Records regulations: The Federal rules restrict any use of the information to criminally investigate or prosecute any alcohol or drug abuse patient.[facility] HealthcareIn the event this information is protected by the Federal Confidentiality of Alcohol and Drug Abuse Patient Records regulations: The Federal rules restrict any use of the information to criminally investigate or prosecute any alcohol or drug abuse patient.[facility] HealthcareIn the event this information is protected by the Federal Confidentiality of Alcohol and Drug Abuse Patient Records regulations: The Federal rules restrict any use of the information to criminally investigate or prosecute any alcohol or drug abuse patient.[facility] Reason for Visit (unrecogniz ed section and [...] Reason Comments Orders Reason Comments Medication Problem Reason Comments Annual Exam Reason Comments punch bx Reason Comments Established Patient Reason Comments Procedure Reason Comments Established Patient Reason Comments URI Reason Comments syncopal episode Reason Comments Follow-up Care Teams (unrecognized sec tion and content) Boiler Riveter Relationship Specialty Start Date End Date Austen Ontiveros [address] [place] [address] PCP - General Family Practice 02/05/17 Boiler Riveter Relationship Specialty Start Date End Date Austen Ontiveros MD [address] [place] [address] (Fax) PCP - General Family Practice 02/05/17 Boiler Riveter Relationship Specialty Start Date End Date Austen Ontiveros MD [address] [place] [address] (Fax) PCP - General Family Practice 02/05/17 Boiler Riveter Relationship Specialty Start Date End Date Austen Ontiveros MD [address] [place] [address] (Fax) PCP - General Family Practice 02/05/17 Boiler Riveter Relationship Specialty Start Date End Date Austen Ontiveros MD [address] [place] [address] (Fax) PCP - General Family Medicine 02/05/17 Boiler Riveter Relationship Specialty Start Date End Date Austen Ontiveros MD [address] [place] [address] (Fax) PCP - General Family Medicine 02/05/17 Boiler Riveter Relationship Specialty Start Date End Date Austen Ontiveros MD [address] [place] [address] (Fax) PCP - General Family Medicine 02/05/17 Boiler Riveter Relationship Specialty Start Date End Date Austen Ontiveros MD [address] [facility] [place] [address] (Fax) PCP - General Family Medicine 02/05/17 Boiler Riveter Relationship Specialty Start Date End Date Austen Ontiveros MD [address] [place] [address] (Fax) PCP - General Family Medicine 02/05/17 Boiler Riveter Relationship Specialty Start Date End Date Austen Ontiveros MD [address] [place] [address] (Fax) PCP - General Family Medicine 02/05/17 Boiler Riveter Relationship Specialty Start Date End Date Austen Ontiveros MD [address] [place] [address] (Fax) PCP - General Family Medicine 02/05/17 Boiler Riveter Relationship Specialty Start Date End Date Austen Ontiveros MD [address] [place] [address] (Fax) PCP - General Family Medicine 02/05/17 Boiler Riveter Relationship Specialty Start Date End Date Austen Ontiveros MD [address] [place] [address] (Fax) PCP - General Family Medicine 02/05/17 Boiler Riveter Relationship Specialty Start Date End Date Austen Ontiveros MD [address] [place] [address] (Fax) PCP - ACO Reach 11/29/22 Austen Ontiveros MD [address] [place] [address] PCP - General Family Medicine 12/17/22 Boiler Riveter Relationship Specialty Start Date End Date Austen Ontiveros MD [address] [place] [address] (Fax) PCP - General Family Medicine 02/05/17 Boiler Riveter Relationship Specialty Start Date End Date Austen Ontiveros MD [address] [place] [address] (Fax) PCP - General Family Medicine 02/05/17 Boiler Riveter Relationship Specialty Start Date End Date Austen Ontiveros MD [address] [place] [address] (Fax) PCP - General Family Medicine 02/05/17 Boiler Riveter Relationship Specialty Start Date End Date Austen Ontiveros MD [address] [place] [address] (Fax) PCP - General Family Medicine 02/05/17 Boiler Riveter Relationship Specialty Start Date End Date Austen Ontiveros MD [address] [place] [address] (Fax) PCP - General Family Medicine 02/05/17 Boiler Riveter Relationship Specialty Start Date End Date Austen Ontiveros MD [address] [place] [address] (Fax) PCP - General Family Medicine 02/05/17 Boiler Riveter Relationship Specialty Start Date End Date Austen Ontiveros MD [address] [place] [address] (Fax) PCP - General Family Medicine 02/05/17 Boiler Riveter Relationship Specialty Start Date End Date Austen Ontiveros MD [address] [place] [address] (Fax) PCP - General Family Medicine 8/1/17 Boiler Riveter Relationship Specialty Start Date End Date Hemeyer, Edward J, MD [address] [facility] [place] [address] (Fax) PCP - ACO Reach 11/29/22 Austen Ontiveros MD [address] [place] [address] PCP - General Family Medicine 12/17/22 Boiler Riveter Relationship Specialty Start Date End Date Austen Ontiveros MD [address] [facility] [place] [address] (Fax) PCP - ACO Reach 11/29/22 Austen Ontiveros MD [address] [place] [address] PCP - General Family Medicine 12/17/22 Boiler Riveter Relationship Specialty Start Date End Date Austen Ontiveros MD [address] [place] [address] (Fax) PCP - ACO Reach 11/29/22 Austen Ontiveros MD [address] [place] [address] PCP - General Family Medicine 12/17/22 Boiler Riveter Relationship Specialty Start Date End Date Austen Ontiveros MD [address] [address] (Fax) PCP - ACO Reach 11/29/22 Austen Ontiveros MD [address] [address] (Fax) PCP - General Family Medicine 12/17/22 Boiler Riveter Relationship Specialty Start Date End Date Austen Ontiveros MD [address] [facility] [place] [place] [address] (Fax) PCP - General Family Medicine 02/05/17 Boiler Riveter Relationship Specialty Start Date End Date Austen Ontiveros MD [address] [facility] [place] [address] (Fax) PCP - General Family Medicine 02/05/17 Boiler Riveter Relationship Specialty Start Date End Date Austen Ontiveros MD [address] [facility] [place] [address] (Fax) PCP - ACO Reach 11/29/22 Austen Ontiveros MD [address] [place] [address] PCP - General Family Medicine 12/17/22 Boiler Riveter Relationship Specialty Start Date End Date Austen Ontiveros MD [address] [place] [address] (Fax) PCP - ACO Reach 11/29/22 Austen Ontiveros MD [address] [place] [address] (Fax) PCP - General Family Medicine 12/17/22 Boiler Riveter Relationship Specialty Start Date End Date Austen Ontiveros MD [address] [place] [address] (Fax) PCP - ACO Reach 11/29/22 Austen Ontiveros MD [address] [place] [address] (Fax) PCP - General Family Medicine 12/17/22 Boiler Riveter Relationship Specialty Start Date End Date Austen Ontiveros MD [address] [place] [address] [place] [address] (Fax) PCP - ACO Reach 11/29/22 Austen Ontiveros MD [address] [place] [address] (Fax) PCP - General Family Medicine 12/17/22 Team Status: Inactive Member Role Status Dates Walker Edge MD Attending Provider Active Start: July 29, 2024 End: July 29, 2024 Boiler Riveter Relationship Specialty Start Date End Date Austen Ontiveros MD [address] [place] [address] (Fax) PCP - General Family Medicine 02/05/17 Boiler Riveter Relationship Specialty Start Date End Date Austen Ontiveros MD [address] [place] [address] [place] [address] (Fax) PCP - ACO Reach 11/29/22 Austen Ontiveros MD [address] [place] [address] (Fax) PCP - General Family Medicine 12/17/22 Boiler Riveter Relationship Specialty Start Date End Date Austen Ontiveros MD [address] [place] [address] (Fax) PCP - ACO Reach 11/29/22 Austen Ontiveros MD [address] [place] [address] (Fax) PCP - General Family Medicine 12/17/22 Boiler Riveter Relationship Specialty Start Date End Date Austen Ontiveros MD [address] [place] [address] (Fax) PCP - General Family Medicine 02/05/17 Boiler Riveter Relationship Specialty Start Date End Date Austen Ontiveros MD [address] [place] [address] (Fax) PCP - ACO Reach 11/29/22 Austen Ontiveros MD [address] [place] [address] (Fax) PCP - General Family Medicine 12/17/22 Boiler Riveter Relationship Specialty Start Date End Date Austen Ontiveros MD [address] [place] [address] (Fax) PCP - ACO Reach 11/29/22 Austen Ontiveros MD [address] [place] [address] (Fax) PCP - General Family Medicine 12/17/22 Boiler Riveter Relationship Specialty Start Date End Date Austen Ontiveros MD [address] [place] [address] (Fax) PCP - General Family Medicine 02/05/17 Boiler Riveter Relationship Specialty Start Date End Date Austen Ontiveros MD [address] [place] [address] (Fax) PCP - ACO Reach 11/29/22 Austen Ontiveros MD [address] [place] [address] (Fax) PCP - General Family Medicine 12/17/22 Inactive Administered Medications - up to 3 most recent administrations Administered Medications (un recognized section and content) Medication Order MAR Action Action Date Dose Rate Site fluorescein-benoxinate 0.3-0.4 % 1 Drop (FLURESS) 1 Drop, BOTH EYES, DIRECTED, Starting on Sat09/03/23 at 1430, Until Sat09/04/23 at 022, Administer for applanation tonometry. In the event of a Fluress shortage, administer 1 drop of [place]-Fluor into both eyes as directed for applanation tonometry., OPHT CLINIC MED ORDERS Given 09/03/2023 2:30 PM EST 1 Drop tropicamide 1 % 1 Drop (MYDRIACYL) 1 Drop, BOTH EYES, DIRECTED, Starting on Sat09/03/23 at 1430, Until Sat09/04/23 at 0229, Administer for dilation, OPHT CLINIC MED ORDERS Given 09/03/2023 2:30 PM EST 1 Drop Goals (unrecognized section and content) Goals may be documented in a n alternate section FOR RECORDS PERTAINING TO PATIENTS WHO ARE [...] BE BASED ON THE PRIMARY CLINICAL RECORDS. [employer] provides no warranty or guarantee of the accuracy or completeness of information in this document.
[2025-01-07 10:08] LABS: Cholesterol 137 mg/dL (<=200); HDL Cholesterol 59 mg/dL (40-60); Triglycerides 39 mg/dL (<=150); VLDL CHOLESTEROL 7.8 mg/dL
== END 2025-01-07 09:10 | disposition home or self-care (01) ==
LOC: LAB 09:09
PROVIDERS: PCP Family Medicine
DX: I25.10 Atherosclerotic heart disease of native coronary artery without angina pectoris (principal)
CPT/HCPCS: 36415; 80061

== ENCOUNTER 2025-05-28 07:47 | Outpatient (OUT) | payer MEDICARE, OTHER, SELFPAY ==
--- OUTSIDE RECORDS SUMMARY | 2025-05-17 08:30 | XMS_ITS | Encounter Summary ---
Author Organization [facility] Address [address] [place] [address] Care Team Providers Care Chemical Equipment Repairer Name Role Phone Austen Saavedra MD Primary Care Provider Source Comments In the event this information is protected by the Federal Confidentiality of Alcohol and Drug AbusePatient Records regulations: The Federal rules restrict any use of the information to criminally investigate or prosecute any alcohol or drug abuse patient.[facility] Reason for Referral * Outpatient Procedure (Routine) - New RequestSpecialtyDiagnoses / Procedures Referred By ContactReferred To ContactADAMS [facility]ITALRT [facility] Diagnoses Permanent atrial fibrillation (HCC) Procedures ECG COMPLETE ECG ROUTINE ECG W/LEAST 12 LDS W/I&R Amy Subramanian APRN.CNP [address] [place] [address] Phone: tel: fax: [facility] [address] [place] [address] Referral IDStatusReasonStart DateExpiration DateVisits RequestedVisits [id number] Request Auto-Generated Referral / Reason for Visit * ReasonCommentsFollow UpFollow up for permanent atrial fibrillation, s/p single lead pacemaker (03-15-25, medtronic, LBB lead), preserved LV systolic heart function (echo: 03-12-25: EF 57%), CAD s/p CABG x3 (2020: PECK/LAD, SVG/PDA, left radial to OM1, tricuspid valve repair, s/p AVR inspiris valve, left atrial clip, cryo maze)DEVICE CHECK 03/22/2025: No eventsHe denies chest pain, shortness of breath, dyspnea on exertion, palpitations, orthopnea, PND, lightheadedness, syncope, claudication, leg swelling, cough, and wheezing Encounter Details DateTypeDepartmentCare Team (Latest Contact Info)Ngeakdcoeho10/10/2025 8:30 AM ESTOffice Visit Cardiology [address] [place] [address] Amy Subramanian APRN.PROFESSOR OF ENVIRONMENTAL SCIENCE [address] [place] [address] Permanent atrial fibrillation (HCC) (Primary Dx); Pacemaker Social History Tobacco UseTypesPacks/DayYears UsedDateSmoking Tobacco: NeverSmokeless Tobacco: Never Tobacco Cessation:Counseling Given: Not Answered Alcohol UseStandard Drinks/WeekCommentsYes0 (1 standard drink = 0.6 oz pure alcohol)rare beer after mowing lawn in [facility] Deprivation IndexAnswerDate RecordedNational Score (1-100), lower number is lower cvck944803/22/2025State Score (1-10), lower number is lower ausm306Data from: https://www.neighborhoodatlas.medicine.[facility].edu/. Last address used for sozhgvgrrog[address] Sex and Gender InformationValueDate RecordedSex Assigned at MwkvxOfzi49/09/2022 3:06 PM EDTLegal FsuUqqk90/06/2013 10:37 AM ESTGender KqzsumqdDdlt72/09/2022 3:07 PM EDTSexual OrientationStraight 01/13/2022 3:06 PM EDTOccupationIndustryJob Start DateJob End DateRetiredNot on fileNot on fileNot on filedocumented as of this encounter Last Filed Vital Signs Vital SignReadingTime TakenCommentsBlood Ppsnwesu993/8805/17/2025 7:55 AM EST Mmhzh371905/17/2025 7:55 AM ESTTemperature--Respiratory Rate--Oxygen Gdayfnaujl74% 05/17/2025 7:55 AM ESTInhaled Oxygen Concentration--Ubbvjt07.2 kg (172 lb 6.4 oz)05/17/2025 7:55 AM ESTHeight--Body Mass Index22.7509 6:59 AM EDT documented in this encounter Functional Status * Are you deaf or do you have serious difficulty hearing?AnswerDate of KrtfszxyrxZetllxCs62/24/2021 12:10 PM Clara Chin RN * Are you blind or do you have serious difficulty seeing, even when wearing glasses?AnswerDate of GdmzwixgnnQrpjylLt41/24/2021 12:10 PM Clara Chin RN * Do you have serious difficulty walking or climbing stairs?AnswerDate of SdmdfnpsvbVnasffDl70/24/2021 12:10 PM Clara Chin RN * Do you have difficulty dressing or bathing?AnswerDate of AssessmentAuthorNo 06/30/2021 12:10 PM Clara Chin RN * Because of a physical, mental, or emotional condition, do you have difficulty doing errands alone such as visiting a doctor's office or shopping?AnswerDate of VqnspmrcszDaggaxFq49/24/2021 12:10 PM Clara Chin RN documented as of this encounter Mental Status * Because of a physical, mental, or emotional condition, do you have serious difficulty concentrating, remembering, or making decisions?AnswerEntry Date ZqmfszAw33/24/2021 12:10 PM Clara Chin RN documented in this encounter Patient Instructions * Patient Instructions* Amy Subramanian APRN.CNP - 05/17/2025 8:27 AM EST Please schedule a pacemaker check, Dr. Meadows for six months Please continue with current medication regimen. I will call patient with Dr. Martin recommendations concerning ASA 81mg documented in this encounter Progress Notes * Amy Subramanian APRN.CNP - 05/17/2025 8:30 AM EST Images from the original note were not included. [facility] Department of Cardiovascular Medicine SECTION OF CARDIAC PACING and ELECTROPHYSIOLOGY OUTPATIENT VISIT DATE May 16, 2025 OUTPATIENT VISIT TYPE ESTABLISHED Recording using ambient AI software for draft documentation of the visit was discussed with the patient/authorized brand representative; all questions welcomed and answered. Patient/authorized brand representative agreed to proceed PRIMARY CARE PHYSICIAN: Austen Saavedra MD [address] [place] [address] CHIEF COMPLAINT: follow up permanent atrial fibrillation, s/p pacemaker (single lead) HISTORY OF PRESENT ILLNESS: Mr. Torres is a 80 year old male who presents today for evaluated by Dr. Martin, Dr. Meadows, Dr. Figueroa permanent atrial fibrillation, s/p single lead pacemaker (h/o sx syncope, 03-15-25, medtronic, LBB lead), preserved LV systolic heart function (echo: 03-12-25: EF 57%), CAD s/p CABG x3 (2020: PECK/LAD, SVG/PDA, left radial to OM1, tricuspid valve repair, s/p AVR inspiris valve, left atrial clip, cryo maze ), Other PMH of hypertension, dyslipidemia, fdc anticoagulation. Last visit with [facility] monitor worn illustrated pause of 3.3 seconds, ventricular rates 35-120, then occurrence of syncopal episode, recommended pacemaker support. He states no further reoccurrence of the symptoms, compliant with medications, except asa was told to discontinue previous visits but still medication list stating to restart March. He denies chest pain, shortness of breath, orthopnea, cough, edema, palpitations, PND, lightheadedness or syncope. PAST CARDIAC HISTORY: see below PAST MEDICAL HISTORY Diagnosis Date A-fib (HCC) 2005 Loaded with Dofetilide 07/19/13 (self converted to sinus rhythm after first dose) Coronary artery disease involving [place] coronary artery of [place] heart with angina pectoris 06/2021 s/p CABG x3, PECK to LAD, [...] & ADENOIDECTOMY <AGE 12 07/08/1956 SOCIAL HISTORY SOCIAL HISTORY[1] FAMILY HISTORY Problem Relation Age of Onset Cancer Father Stroke Mother Coronary Artery Disease Sister GI Sister Hypertension Sister Stroke Paternal Grandmother No Ocular Disease Other ALLERGIES: ALLERGIES Allergen Reactions Deconamine [Chlorph* Unknown Niaspan [Niacin] Unknown Pseudoephedrine Unknown Other Reaction(s): Urinary Retention Sulfamethoxazole-Tr* Unknown MEDICATIONS: apixaban (ELIQUIS) 5 mg tab(s) Take 1 tablet by mouth two times a day. Patient should start on March 16, 2025. aspirin, enteric coated (ADULT LOW DOSE ASPIRIN) 81 mg EC tablet Take 1 tablet by mouth every otherday. Patient should start on March 26, 2025. bisoprolol (ZEBETA) 10 mg tablet Take 1 tablet by mouth two times a day. rosuvastatin (CRESTOR) 10 mg tablet Take 1 tablet by mouth once daily. cholecalciferol, vitamin D3, (VITAMIN D3 ORAL) Take by mouth. ferrous sulfate (IRON ORAL) Take by mouth. tamsulosin HCl (FLOMAX ORAL) Take 0.4 mg by mouth once daily. CALCIUM CARBONATE/VITAMIN D3 (VITAMIN D-3 ORAL) Take 2,000 Units by mouth twice daily. montelukast 10 mg tablet Take 10 mg by mouth daily at bedtime. MULTIVIT &MINERALS/FERROUS FUM (MULTI VITAMIN ORAL) Take by mouth once daily. [place]-3 Fatty Acids-Vitamin E 1,000 mg cap Take [...] or Cold Intolerance, Excessive Sweating, Frequent Urination, FrequentThirst PHYSICAL EXAMINATION: General: Well appearing, in no acute distress, speaking in complete sentences. Neck: No jugular venous distention, no carotid bruits, carotids have a normal upstroke Lungs: Clear to auscultation bilaterally, no wheezing or rhonchi. Heart: irregular rhythm, rate normal, no S3, no S4, no heaves, no rub, soft systolic murmur. left chest incision present, no drainage, no swelling. Abdomen: Soft, nontender, bowel sounds normal, no palpable organomegaly, no bruits. Extremities: No peripheral edema . Grade 2/4 distal pulses bilaterally. Neuro: Oriented to person, place and time, alert, cooperative CARDIOVASCULAR MEDICINE TESTING: Reviewed VS, labs, previous cardiac testing EC05-17-25 EC03-12-25 Device check: 03-22-25 Normal In-Office: No Events * Normal Device Function * Alerts or events: None * Battery: 14.8 years * Sensing, impedance and thresholds reviewed and tested * Presenting Rhythm: NATURAL FABRICATOR-VS, irreg * Underlying Rhythm: Atrial fibrillation * Heart Rate Histograms reviewed * Pacing and Detection Parameters were evaluated ECHO: 03-12-25 Exam indication: Routine surveillance of mild valvular regurgitation (>3yrs) - The left ventricle is normal in size. Left ventricular systolic function is normal. EF = 57 ?? 5% (2D biplane) Left ventricular diastolic function was not evaluated due to AF. - The right ventricle is mildly dilated. Right ventricular systolic function is mildly decreased. - The left atrial cavity is mildly dilated. - The right atrial cavity is moderately dilated. - Hanks MC3 Tricuspid Ring (size #32). There is mild (1+) tricuspid valve regurgitation. The peak gradient is 6 mmHg and the mean gradient is 3 mmHg. - Inspiris prosthetic aortic valve (size #25). There is trace aortic valve regurgitation. The peak gradient is 11 mmHg, the mean gradient is 6 mmHg and the dimensionless valve index is 0.52. - Exam was compared with the prior echocardiographic exam performed on 03/03/2024. There is no significant change. LVEF appears slightly better on current study. CxR: 03-12-25 No pneumothorax. Mild cardiomegaly without evidence of congestive heart failure. IMPRESSION: Mr. Torres is a 80 year old male with a permanent atrial fibrillation, s/p single lead pacemaker (03-15-25, medtronic, LBB lead). normotensive, ECG atrial fibrillation, V'88, RBBB, QTc: 500 ms Discussed with the patient the following: -device check, ok to resume normal activity, remote checks every three months, will call patient ifabnormal, otherwise if normal we would not call the patient with the results -unsure the discontinuation of the asa PLAN AND RECOMMENDATIONS: Continue with current medication regimen Annual labs 3. I will need further review with Dr. Martin Follow up appointment: device check & Dr. Meadows in six months, then yearly there after I spent 30 minutes in the visit, with more than 50% of the total jest-fg-qdty time of the visit in counseling / coordination of care. CONTACT INFORMATION: Amy Subramanian APRN.CNP, 05/17/25 [1] Social History Tobacco Use Smoking status: Never Smokeless tobacco: Never Substance Use Topics Alcohol use: Yes Comment: rare beer after mowing lawn in summer Drug use: No documented in this encounter Plan of Treatment DateTypeDepartmentCare Team (Latest Contact Info)Tncxwqdnohy56/04/2025 10:40 AM ESTOffice Visit Cardiology [address] [place] [address] [place] [address] [place] [address] Return in about 8 months (around 06/10/2025).10/28/2025 8:00 AM EDTOffice Visit Cardiology [address] [place] [address] sqxdqk8010/28/2025 8:40 AM EDTOffice Visit Cardiology [address] [place] [address] [place] [address] [place] [address] 6 month follow updocumented as of this encounter Goals GoalPatient Goal TypeAssociated ProblemsRecent ProgressPatient-Stated?Author Blood Pressure < 130/80 Blood Xtankjdb292/88(05/17/2025 7:55 AM EST)Daniel Cuellar, MDdocumented as of this encounter Procedures Procedure NamePriorityDate/TimeAssociated DiagnosisCommentsECG COMPLETERoutine 05/17/2025 8:01 AM EST Permanent atrial fibrillation (HCC) documented in this encounter Results * ECG COMPLETE (05/17/2025 8:01 AM EST)ComponentValueRef RangeTest Method Analysis TimePerformed AtPathologist SignatureVentricular Yumn13PMLTEAJZ AND VASCULAR INSTITUTEQRS Ksdisbbr439gqRALDL AND VASCULAR INSTITUTEQT Jrbvndcp649 msHEART AND VASCULAR INSTITUTEQTC Calculation ([place])500msHEART AND VASCULAR INSTITUTECalculated R Lxln49nrmntnfDEAZP AND VASCULAR INSTITUTECalculated T Owqz62dphwhdpHPJML AND VASCULAR INSTITUTESpecimen (Source)Anatomical Location / LateralityCollection Method / VolumeCollection TimeReceived Time05/17/2025 8:01 AM EST Impressions [facility] - 05/18/2025 7:18 AM EST ATRIAL FIBRILLATION COMPLETE RIGHT BUNDLE BRANCH BLOCK ABNORMAL ECG Confirmed by TARIQ CROOKS M.D. ([id number]) on 05/18/2025 7:18:33 AM Narrative [facility] - 05/18/2025 7:18 AM EST NAME : BRITTA TORRES PID : [id number] : 1945 Gender : Male Race : ORD : [id number] Procedure Date : May 17 2025 08:01:03 Edit Date : May 18 2025 07:18:40 Diagnosis: ATRIAL FIBRILLATION COMPLETE RIGHT BUNDLE BRANCH BLOCK ABNORMAL ECG Confirmed by TARIQ CROOKS M.D. ([id number]) on 05/18/2025 7:18:33 AM Test Reason : Follow Up Location : 192 : AVCRD ?? Overread By : TARIQ CROOKS M.D. Edited By : TARIQ CROOKS M.D. Referred By : Amy Subramanian Acquired by : , Authorizing ProviderResult TypeResult StatusMarisol Moris GEOPHYSICAL LABORATORY DIRECTOR.CNPEKGFinal ResultPerforming OrganizationAddressCity/State/ZIP CodePhone Number [facility] [address] [place] [address] documented in this encounter Visit Diagnoses Diagnosis Permanent atrial fibrillation (HCC)- Primary Atrial fibrillation Pacemaker Cardiac pacemaker in situ Pacemaker reprogramming/check Fitting and adjustment of cardiac pacemaker documented in this encounter Care Teams Team MemberRelationshipSpecialtyStart DateEnd Date Austen Saavedra MD [address] [place] [address] PCP - GeneralFamily Medicine02/05/17documented as of this encounter
--- OUTSIDE RECORDS SUMMARY | 2025-05-25 09:00 | XMS_ITS | Encounter Summary ---
Author Organization [facility] Address [address] [place] [address] Care Team Providers Care Barrel Roller Name Role Phone Austen Saavedra MD Unavailable [phone] Austen Saavedra MD Primary Care Provider [phone] Mario Estrada MD, Jay Unavailable [phone] Alfred Estrada MD, Mary Unavailable [phone] Usama Stallings MD Unavailable [phone] Reason for Visit * ReasonCommentsFollow-up Encounter Details DateTypeDepartmentCare Team (Latest Contact Info)Iyjpygeokfe94/18/2025 9:00 AM ESTOffice Visit [facility] [address] [facility] [address] [place] [id number] Austen Saavedra MD 112 [facility] [address] [place] [address] Social History Tobacco UseTypesPacks/DayYears UsedDateSmoking Tobacco: NeverSmokeless Tobacco: NeverAlcohol UseStandard Drinks/WeekCommentsNot Currently0 (1 standard drink = 0.6 oz pure alcohol)Caffeine intake: 3 cups decaf per dayHumiliation, Afraid, Rape, and Kick questionnaireAnswerDate RecordedWithin the last year, have you been afraid of your partner or ex-partner?No04/12/2023Within the last year, have you been humiliated or emotionally abused in other ways by your partner or ex-partner?No04/12/2023Within the last year, have you been kicked, hit, slapped, or otherwise physically hurt by your partner or ex-partner?No04/12/2023Within the last year, have you been raped or forced to have any kind of sexual activity by your partner or ex-partner?No04/12/2023Social Connection and Isolation Panel AnswerDate RecordedIn a typical week, how many times do you talk on the phone with family, friends, or neighbors?More than three times a week06/23/2024How often do you get together with friends or relatives?More than three times a week 06/23/2024How often do you attend episcopal or voodoo services?More than 4 times per year06/23/2024ctive Member of Clubs or OrganizationsNot on file06/23/2024 Attends Club or Organization MeetingsNot on file06/23/2024Marital StatusNot on file06/23/2024UDIT-CAnswerDate RecordedQ1: How often do you have a drink containing alcohol?Never04/12/2023Q2: How many drinks containing alcohol do you have on a typical day when you are drinking?Patient does not drink04/12/2023Q3: How often do you have six or more drinks on one occasion?Never04/12/2023Overall Financial Resource Strain (CARDIA)AnswerDate RecordedHow hard is it for you to pay for the very basics like food, housing, medical care, and heating?Not hard at all04/12/2023HQ-2AnswerDate RecordedPatient Health Questionnaire-2 Score0 05/25/2025Finmountain view hospital [place] [facility] Occupational [facility] - Occupational Stress QuestionnaireAnswerDate RecordedDo you feel stress - tense, restless, nervous, or anxious, or unable to sleep at night because yourmind is troubled all the time - these days?Not at all06/23/2024Exercise Vital SignAnswerDate RecordedOn average, how many days per week do you engage in moderate to strenuous exercise (like a brisk walk)?6 days06/23/2024On average, how many minutes do you engage in exercise at this level?70 min06/23/2024Hunger Vital SignAnswerDate Recorded Within the past 12 months, you worried that your food would run out before you got the money to buymore.Never true04/12/2023Within the past 12 months, the food you bought just didn't last and you didn't have money to get more.Never true 04/12/2023RAPARE - TransportationAnswerDate RecordedIn the past 12 months, has lack of transportation kept you from medical appointments or from getting medications?No04/12/2023In the past 12 months, has lack of transportation kept you from meetings, work, or from getting things needed for daily living?No 04/12/2023Housing Stability Vital SignAnswerDate RecordedIn the last 12 months, was there a time when you were not able to pay the mortgage or rent on time?No 04/12/2023In the last 12 months, how many places have you lived?In the last 12 months, was there a time when you did not have a steady place to sleep or slept in [facility] (including now)?No04/12/2023EducationAnswerDate RecordedWhat is the highest level of school you have completed or the highest degree you have received?High school dxfadpre81/09/2023Sex and Gender InformationValueDate RecordedSex Assigned at BirthNot on fileLegal SexMale 09/19/2022 7:10 PM EDTGender IdentityNot on fileSexual OrientationNot on file OccupationIndustryJob Start DateJob End DateRetiredNot on fileNot on fileNot on filedocumented as of this encounter Functional Status * Over the past 2 weeks, how often have you been bothered by any of the following problems?QuestionAnswerDate of AssessmentAuthorLittle interest or pleasure in doing thingsNot at all05/25/2025 10:43 AM Joleen Huang MA Feeling down, depressed, or hopelessNot at all05/25/2025 10:43 AM Reina OctoberROBERTatient Health Questionnaire-2 Jcsbu45607/25/2024 10:43 AM Joleen Huang MA documented as of this encounter Plan of Treatment Not on file documented as of this encounter Visit Diagnoses Not on filedocumented in this encounter Additional Health Concerns AssessmentNoted TimePHQ-9 Depression Total Score: 9:00 AM EDT documented as of this encounter Care Teams Team MemberRelationshipSpecialtyStart DateEnd Date Austen Saavedra MD [address] [place] [address] [address] PCP - ACO Reach11/29/22 Austen Saavedra MD [address] [place] [address] [address] PCP - GeneralFamily Medicine02/01/25 [place] [address] [place] [address] Referring PhysicianCardiology03/31/25 Mary Simon MD [address] [place] [address] Referring PhysicianOphthalmology03/31/25 Usama Stallings MD [address] [place] [address] Referring PhysicianOptometry03/31/25documented as of this encounter
--- OUTSIDE RECORDS SUMMARY | 2025-05-28 07:51 | XMS_ITS | CCD ---
Author Organization [facility] Care Team Providers Care Employee Benefits Specialist Name Role Phone Austen Ontiveros Primary Care Provider AUSTEN ONTIVEROS Primary Care Physician Austen Ontiveros MD Primary Care Provider Ishaan DOWLING Attending Unavailable NILL, Ishaan Pierre Attending Unavailable HEMEYERAUSTEN Referring Unavail able NILLIshaan Attending Unavailable HEMEYER ., DR RAMOS Primary [...] Unavailable HEMEYER ., DR RAMOS Consulting Unavailable YUSUF, EVER Referring Unavailable AUSTEN ONTIVEROS Primary Care Unavailab Austen Marie MD Unavailable [phone] Austen Ontiveros MD Primary Care Provider Austen Ontiveros MD Primary Care Provider Austen Ontiveros MD Unavailable [phone] Austen Ontiveros MD Primary Care Provider [phone] Austen Ontiveros MD Unavailable Austen Ontiveros MD Primary Care Provider [phone] Walker Edge MD Attending Provider Walker Edge Admitting Unavailable Walker Edge Attending Unavailable NO FAMILY, PHYSICIAN Primary Care Unavailable Austen Ontiveros MD Primary Care Provider EVER GOLDBERG Referring [facility] Unavailab DARA Ruvalcaba Admitting Unavailable DARA HINES Attending Unavailable EVER GOLDBERG Referring Unavailable [facility], FLOMOT DINORAH Primary Care Unavailab Austen Marie MD Primary Care Provider [phone] Yusuf Estrada MD, Ever Unavailable Alfred Estrada MD, Mary Unavailable [phone] Usama Stallings MD Unavailable [phone] AUSTEN ONTIVEROS Attending Unavailable AUSTEN ONTIVEROS Attending Unavailable AUSTEN ONTIVEROS Attending Unavailable AUSTEN ONTIVEROS Attending Unavailable AUSTEN ONTIVEROS Attending Unavailable [facility] Unavailab janak ONTIVEROS, [facility] Unavailab PATRICIA Torres Attending Unavailable [facility], [facility] Care Unavailab BRANDY Riggins Attending Unavailable [facility], [facility] Primary Care Unavailab AMY Somers Attending Unavailable HEMEYER, [facility] Primary Care Unavailab le HEMEYER, [facility] Primary Care Unavailab DHARMESH Wilson Attending Unavailable EVER GOLDBERG Attending Unavailable [facility], [facility] Primary Care Unavailab le Allergies Allergy ClassificationReported Allergen(s)Allergy TypeDate of OnsetReaction(s) Facility (20 sources)Chlorpheniramine / Pseudoephedrine; Translations: [CHLORPHENIRAMINE-PSEUDOEPHED]Drug Xbdlxef62-48-1761YssrvrkSeavcjqhs Clinic Work Phone: (20 sources)Niacin; Translations: [niacin]Drug Vglwkoo29-37-0366Lizlrvn, Blushing, function (observable entity)[facility] Work Phone: (12 sources)rosuvastatinDrug Fchltpm60-56-1151Jwmca: See CommentsTwin City Hospital (20 sources)Sulfamethoxazole / Trimethoprim; Translations: [SULFAMETHOXAZOLE-TRIMETHOPRIM]Drug Kkvfmul61-07-2486NwddqosThozctllw Clinic Work Phone: (20 sources)Chlorpheniramine; Translations: [chlorpheniramine]Drug Allergy 61-56-0482Cobrfbb retention of urine (observable entity)[facility] [place] (3 sources)guaiFENesin / HYDROcodone / Pseudoephedrine; Translations: [guaifenesin/hydrocodone/pseudoephedrine]Drug AllergyBladder retention of urine (observable entity)[facility] [place] (20 sources)HMG-CoA reductase inhibitor; Translations: [statins]Drug allergy 04-47-9534Ifgcvsq (qualifier value)[facility] [place] (3 sources)Sulfamethoxazole; Translations: [sulfamethoxazole]Drug Allergy Constipation (disorder)[facility] [place] (20 sources)Trimethoprim; Translations: [trimethoprim]Drug Tfknqcb46-64-7546 Unknown (qualifier value)[facility] [place] (1 source)Niacin; Translations: [Niaspan ER][facility]ergy[facility] (1 source)black walnut pollen extractDrug AllergyThe [facility] Rep[facility] (1 source)ChlorpheniramineDrug AllergySt. [facility] Rep[facility] (1 source)Chlorpheniramine / PseudoephedrineDrug Wimrkbz29-54-1053Hni [facility] Repository (1 source)NiacinDrug Jjxpgeb48-30-6065Clr [facility] Repository (1 source)Sulfamethoxazole / TrimethoprimDrug Scfikam94-26-9291Lbm [facility] Repository (1 source)Sulfonamides (Antibiotic)Drug allergy (disorder)96-95-5298Zsy [facility] Repository (1 source)TrimethoprimDrug AllergyThe [facility] (20 sources)NiacinDrug Qghqeth96-32-7916NB[facility] (20 sources)Pseudoephedrine; Translations: [PSEUDOEPHEDRINE]Drug Allergy 34-79-7944AlhpckfBOLJ Healthcare (20 sources)SulfamethoxazoleAllergy to fbqpabkux36-19-6215RU[facility] Medications Current Medications MedicationDrug Class(es)DatesSig (Normalized)Sig (Original)albuterol 0.83 mg/ml inhalation solution (20 sources)beta2-Adrenergic AgonistStart: 11-02-2024 End: 75-72-4420yzvtfirnj (2.5 MG/3ML) 0.083% nebulizer solution Indications: Pneumonia of right lower lobe due to infectious organism Take 3 mL (2.5 mg) by nebulization in the morning and 3 mL (2.5 mg) at noon and 3 mL (2.5 mg) in the evening and 3 mL (2.5 mg) before bedtime. 360 mL 11/02/2024 Activetake 2 puff(s) by inhalation every six hours for wheezingalbuterol 108 (90 Base) MCG/ACT inhaler Inhale 2 puffs every 6 (six) hours if needed for wheezing Active albuterol 108 (90 Base) MCG/ACT inhaler (10 sources)take 2 puff(s) by inhalation every six hours for wheezingalbuterol 108 (90 Base) MCG/ACT inhaler Inhale 2 puffs every 6 (six) hours if needed for wheezing ActiveamLODIPine 2.5 mg oral tablet (3 sources)Dihydropyridine Calcium Channel BlockerStart: 09-29-2021 End: 10-14-2681vfdh 1 tablet by mouth once dailyamLODIPine (NORVASC) 2.5 mg tablet Take 1 tablet by mouth once daily. 90 tablet 3 09/29/2021 01/18/2022 Discontinued (Discontinued by another Health Care Provider)Comment on above:Take 1 tablet by mouth once daily.apixaban 5 mg oral tablet (20 sources)Factor Xa InhibitorStart: 12-42-6550rewlbhgk (ELIQUIS) 5 mg tab(s) Take 1 tablet by mouth two times a day. Patient should start on March 16, 2025. 180 tablet 3 03/16/2025 ActiveStart: 11-24-2021 End: 00-75-9227mekl 1 tablet by mouth in the morningEliquis 5 MG tablet Take 5 mg by mouth in the morning and 5 mg before bedtime. 11/21/2022 ActiveComment on above:Take 1 tablet by mouth twice daily.TAKE 1 TABLET BY MOUTH TWICE A DAY aspirin 81 mg delayed release oral tablet (20 sources)Platelet Aggregation Inhibitor, Nonsteroidal Anti-inflammatory Drug Start: 02-91-2431sxjs 1 tablet by mouth every other dayaspirin, enteric coated (ADULT LOW DOSE ASPIRIN) 81 mg EC tablet Take 1 tablet by mouth every otherday. Patient should start on March 26, 2025. 03/26/2025 ActiveStart: 06-07-2023 take 1 tablet by mouth every other dayaspirin, enteric coated (ADULT LOW DOSE ASPIRIN) 81 mg EC tablet Take 1 tablet by mouth every otherday. 06/07/2023 ActiveStart: 03-30-2021 End: 60-04-2812gwni 1 tablet by mouth once dailyaspirin, enteric coated (ADULT LOW DOSE ASPIRIN) 81 mg EC tablet Take 1 tablet by mouth once daily.30 tablet 4 03/30/2021 06/07/2023 DiscontinuedComment on above:Take 1 tablet by mouth once daily.Take 1 tablet by mouth every other day.bisoprolol fumarate 10 mg oral tablet (20 sources)beta-Adrenergic BlockerStart: 59-02-8789zbmq 1 tablet by mouth twice dailybisoprolol (ZEBETA) 10 mg tablet Take 1 tablet by mouth two times a day. 180 tablet 3 01/05/2025 ActiveStart: 10-20-2022 End: 61-99-6984ipvu 2 tablets by mouth once dailybisoprolol (ZEBETA) 10 mg tablet Take 2 tablets by mouth once daily. 180 tablet 3 03/19/2024 01/05/2025 DiscontinuedStart: 03-17-2022 End: 65-55-9060ydah 2 tablets by mouth once dailybisoprolol (ZEBETA) 10 mg tablet TAKE 2 TABLETS BY MOUTH EVERY DAY 60 tablet 3 04/11/2022 ActiveStart: 48-01-5780xluu 1.5 tablets by mouth once dailybisoprolol (ZEBETA) 10 mg tablet Take 1.5 tablets by mouth once daily. 90 tablet 3 03/01/2022 ActiveStart: 01-18-2022 End: 00-44-0643oooh 1 tablet by mouth once dailybisoprolol (ZEBETA) 10 mg tablet Take 1 tablet by mouth once daily. 90 tablet 3 01/18/2022 03/01/2022 DiscontinuedComment on above:Take 1 tablet by mouth once daily.Take 1.5 tablets by mouth once daily.TAKE 2 TABLETS BY MOUTH EVERY DAYTake 2 tablets by mouth once daily.Calcium Carbonate / vitamin D3 (20 sources)take 2000 [IU] by mouth twice dailyCALCIUM CARBONATE/VITAMIN D3 (VITAMIN D-3 ORAL) Take 2,000 Units by mouth twice daily. Activetake 2000 [IU] by mouth twice dailyCALCIUM CARBONATE/VITAMIN D3 (VITAMIN D-3 ORAL) Take 2,000 Units by mouth twice daily. 0 ActiveComment on above:Take 2,000 Units by mouth twice daily.cefuroxime 500 mg oral tablet (2 sources)Cephalosporin AntibacterialStart: 11-02-2024 End: 25-25-8832bepl 1 tablet by mouth in the morningcefuroxime (Ceftin) 500 MG tablet Indications: Pneumonia of right lower lobe due to infectious organism Take 1 tablet (500 mg) by mouth in the morning and 1 tablet (500 mg) before bedtime. Do all this for 10 days. 20 tablet 11/02/2024 11/12/2024 ActiveCHELATED IRON PO (20 sources)CHELATED IRON PO Take by mouth. ActiveCHELATED IRON PO Take by mouth. 0 Activecholecalciferol, vitamin D3, (VITAMIN D3 ORAL) (7 sources)cholecalciferol, vitamin D3, (VITAMIN D3 ORAL) Take by mouth. Active ferrous sulfate (20 sources)ferrous sulfate (IRON ORAL) Take by mouth. Activeferrous sulfate (IRON ORAL) Take by mouth. 0 ActiveComment on above:Take by mouth.fexofenadine hydrochloride 180 mg oral tablet (14 sources)Histamine-1 Receptor AntagonistStart: 09-22-2013 End: 97-40-2917qucz 1 tablet by mouth once dailyAllegra 180 mg Tab 1 TAB, Oral, Daily, Refills(s) 0, Allergy symptoms Start Date: 09/22/13 Status: OrderedComment on above:Take 180 mg by mouth once daily.Fish Oils (20 sources)Start: 29-53-6554bmdv 1 capsule by mouth once dailyFish Oil 1200 mg oral capsule 1,200 mg = 1 cap(s), Oral, Daily, Refills(s) 0 Start Date: 05/11/22 Status: Orderedtake 1 capsule by mouth once dailyomega-3 (Fish Oil) 1200 MG capsule Take 1 capsule by mouth 1 (one) time each day at the same time. Active take 1 capsule by mouth once dailyomega-3 (Fish Oil) 1200 MG capsule Take 1 capsule by mouth 1 (one) time each day at the same time. 0 Activeketorolac tromethamine 5 mg/ml ophthalmic solution (9 sources)Nonsteroidal Anti-inflammatory Drug, Cyclooxygenase InhibitorStart: 11-26-2023 End: 55-45-7943pnLECaqaq (ACULAR) 0.5 % ophthalmic solution USE DIRECTED BY PHYSICIAN, IN OPERATIVE EYE, BEGINNING ONE DAY AFTER SURGERY 5 mL 11/26/2023 01/05/2025 Discontinuedmetoprolol tartrate 25 mg oral tablet (1 source)beta-Adrenergic Beth End: 96-92-3292ehke 1 tablet by mouth twice dailymetoprolol tartrate, short acting, (LOPRESSOR) 25 mg tablet Take 25 mg by mouth twice daily. 0 01/18/2022 DiscontinuedComment on above:Take 25 mg by mouth twice daily.montelukast 10 mg oral tablet (20 sources)Leukotriene Receptor AntagonistStart: 09-22-2013 End: 01-64-6884xabu 1 tablet by mouth once dailymontelukast (Singulair) 10 MG tablet Indications: Mild persistent asthma without complication (HCC)Take 1 tablet (10 mg) by mouth 1 (one) time each day at the same time. 90 tablet 1 02/21/2023 ActiveComment on above:Take 10 mg by mouth daily at bedtime.MULTIVIT &MINERALS/FERROUS FUM (MULTI VITAMIN ORAL) (20 sources)MULTIVIT &MINERALS/FERROUS FUM (MULTI VITAMIN ORAL) Take by mouth once daily. ActiveMULTIVIT &MINERALS/FERROUS FUM (MULTI VITAMIN ORAL) Take by mouth once daily. 0 ActiveComment on above:Take by mouth once daily. Multivitamins and Minerals (2 sources)Start: 26-86-5885pysk 1 tablet by mouth once dailyMultivitamins and Minerals 1 TAB, Oral, Daily, Refill(s) 0, Prophylaxis Start Date: 09/22/13 Status:OrderedOmega-3 Fatty Acids-Vitamin E 1,000 mg cap (20 sources)take 1 capsule by mouth twice dailyOmega-3 Fatty Acids-Vitamin E 1,000 mg cap Take 1 capsule by mouth twice daily. Activetake 1 capsule by mouth twice dailyOmega-3 Fatty Acids-Vitamin E 1,000 mg cap Take 1 capsule by mouth twice daily. 0 ActiveComment on above:Take 1 capsule by mouth twice daily. perflutren lipid microspheres 1.3 mL in NaCl (PF) 0.9% 10 mL injection (DEFINITY) (9 sources)Start: 08-23-2021 End: 05-41-3959iuycaehtla lipid microspheres 1.3 mL in NaCl (PF) 0.9% 10 mL injection (DEFINITY)prednisoLONE acetate 10 mg/ml ophthalmic suspension (9 sources)CorticosteroidStart: 11-26-2023 End: 34-33-2030cynhlmzqXCYQ acetate (PRED FORTE) 1 % ophthalmic suspension USE DIRECTED BY PHYSICIAN, IN OPERATIVE EYE, BEGINNING ONE DAY AFTER SURGERY 5 mL 11/26/2023 01/05/2025 Discontinuedrosuvastatin calcium 20 mg oral tablet (20 sources)HMG-CoA Reductase InhibitorStart: 02-21-2023 End: 62-89-8920jiqv 1 tablet by mouth at bedtimerosuvastatin (Crestor) 20 MG tablet Indications: Mixed dyslipidemia Take 1 tablet (20 mg) by mouth at bedtime. 90 tablet 1 02/21/2023 ActiveStart: 10-20-2022 End: 68-21-4835zegm 1 tablet by mouth once dailyrosuvastatin (CRESTOR) 10 mg tablet Take 1 tablet by mouth once daily. 90 tablet 3 01/05/2025 ActiveStart: 22-07-2184btap 1 tablet by mouth once dailyrosuvastatin 20 mg Tab 20 mg = 1 tab(s), Oral, Daily, Refills(s) 0 Start Date: 05/11/22 Status: OrderedStart: 20-54-4672xcvr 1 tablet by mouth once dailyrosuvastatin (CRESTOR) 10 mg tablet Take 1 tablet by mouth once daily. 0 08/23/2021 ActiveComment on above:Take 1 tablet by mouth once daily.125 ml sodium chloride 9 mg/ml prefilled syringe (9 sources)Start: 08-23-2021 End: 71-90-2369yohiic chloride 0.9 % (flush) 10 mL (BD POSIFLUSH)tamsulosin hydrochloride 0.4 mg oral capsule (20 sources)alpha-Adrenergic BlockerStart: 02-21-2023 End: 26-34-8243pqcc 1 capsule by mouth every twenty-four hours at bedtime tamsulosin (Flomax) 0.4 MG 24 hr capsule Indications: Benign prostatic hyperplasia with urinary hesitancy Take 1 capsule (0.4 mg) by mouth at bedtime. 90 capsule 1 02/21/2023 08/20/2023 ActiveStart: 15-07-9928kbbv 1 capsule by mouth once dailyFlomax 0.4 mg Cap 0.4 mg = 1 cap(s), Oral, Daily, Refills(s) 0 Start Date: 05/11/22 Status: OrderedComment on above:Take 0.4 mg by mouth once daily.Vitamin D3 (2 sources)Start: 32-78-6178Pcjuhjv D3 2,000 International_Unit, Oral, Daily, Refills(s) 0 Start Date: 12/01/14 Status: Ordered Completed/Discontinued Medications MedicationDrug Class(es)DatesSig (Normalized)Sig (Original)acetaminophen 325 mg oral tablet (16 sources)Start: 06-29-2021 End: 31-45-1854gkcg 325-650 mg by mouth every four hours as neededacetaminophen (TYLENOL) 325 mg tablet Take 1-2 tablets by mouth every 4 hours as needed for mild tomoderate pain 30 tablet 0 06/29/2021 11/14/2023 DiscontinuedComment on above:Take 1-2 tablets by mouth every 4 hours as needed for mild to moderate painbenoxinate hydrochloride 4 mg/ml / fluorescein sodium 3 mg/ml ophthalmic solution (1 source)Diagnostic DyeStart: 09-03-2023 End: 00-64-9247elhahalegqh-benoxinate 0.3-0.4 % 1 Drop (FLURESS)[place]-3 Fatty Acids-Vitamin E (FISH OIL) 1,000 mg cap (3 sources)take 1 capsule by mouth twice dailyOmega-3 Fatty Acids-Vitamin E (FISH OIL) 1,000 mg cap Take 1 capsule by mouth twice daily. 0 ActiveComment on above:Take 1 capsule by mouth twice daily.tropicamide 10 mg/ml ophthalmic solution (1 source)AnticholinergicStart: 09-03-2023 End: 82-21-5558zwdbnhoiohf 1 % 1 Drop (MYDRIACYL) Problems Active Problems Problem ClassificationProblemDateDocumented DateEpisodic/ChronicAortic; peripheral; and visceral artery aneurysms (20 sources)Abdominal aortic ectasia; Translations: [Abdominal aortic ectasia] Onset: 287247-82-3269FserhdmQwhiek (20 sources)Asthma; Translations: [Unspecified asthma, uncomplicated]Onset: 786729-68-4389TybwoopRpuxkkd dysrhythmias (20 sources)Chronic atrial fibrillation; Translations: [Chronic atrial fibrillation, unspecified]Onset: 05-18-2013 Resolved: 017033-37-4971JgklxvqYvtvpxm dysrhythmias (3 sources)Bradycardia; Translations: [Bradycardia, unspecified]Onset: 258868-21-4887QiyhcvhcExqmlttp (20 sources)Bilateral age-related nuclear cataracts; Translations: [Age-related nuclear cataract, bilateral]Onset: 874737-52-1328EwopwfbLkkwpfapnokf of device; implant or graft (15 sources)Arteriosclerosis of coronary artery bypass graft; Translations: [Atherosclerosis of coronary arterybypass graft(s) without angina pectoris] Onset: 771118-92-0829YtbgnpuSdvcgynsmj disorders (20 sources)Right bundle branch block; Translations: [Unspecified right bundle- branch block]Onset: 194045-24-2065FukhvrcMtehjvtsuz heart failure; nonhypertensive (20 sources)Chronic diastolic heart failure; Translations: [Chronic diastolic (congestive) heart failure]Onset: 42-02-3613EstqkyqPuvbdusn atherosclerosis and other heart disease (20 sources)Coronary atherosclerosis; Translations: [Atherosclerotic heart disease of [place] coronary artery with unspecified angina pectoris]Onset: 760553-37-9230XfhnqwjAutsywdzc of lipid metabolism (20 sources)Hyperlipidemia; Translations: [Hyperlipidemia, unspecified]Onset: 613287-25-8845BviyinsEmjiwmwnb hypertension (20 sources)Hypertensive disorder; Translations: [Essential (primary) hypertension]Onset: 11-23-2013 Resolved: 960954-71-5717MmodiejBbxwb valve disorders (20 sources)Aortic valve stenosis; Translations: [Nonrheumatic aortic (valve) stenosis]Onset: 781302-73-5541OpylshwNhhwzzfkkvo of prostate (20 sources)Lower urinary tract symptoms due to benign prostatic hypertrophy; Translations: [Benign prostatic hyperplasia with lower urinary tract symptoms] Onset: 556110-08-8319RinmvmcYofsaacne of unspecified nature or uncertain behavior (4 sources)Neoplastic disease of uncertain behavior; Translations: [Neoplasm of uncertain behavior, unspecified]83-28-0111FdzqrtwvSkimelcqocd deficiencies (20 sources)Vitamin D deficiency; Translations: [Vitamin D deficiency, unspecified]Onset: 017552-79-9802EyipgwjWnqsyigvu or stenosis of precerebral arteries (2 sources)Bilateral stenosis of carotid arteries; Translations: [Occlusion and stenosis of bilateral carotid arteries]98-32-4215TtmiozjPtjlfmgbrluhmc (20 sources)Degenerative joint disease involving multiple joints; Translations: [Polyosteoarthritis, unspecified]Onset: 05-28-2016 Resolved: 753960-42-7223DlkbcpeDadau aftercare (11 sources)Patient encounter status; Translations: [Other residential (current) drug therapy]EpisodicOther aftercare (2 sources)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; Translations: [USP CURRNT USE ANTICOAGULANTS]Onset: 28-95-2026OcuphwlbLxajk and ill-defined heart disease (20 sources)Bilateral enlargement of atria; Translations: [Cardiomegaly]Onset: 549080-42-1353PqhanjkYhjdi bone disease and musculoskeletal deformities (4 sources)Osteopenia; Translations: [Other specified disorders of bone density and structure, right thigh]Onset: 209374-34-4625XmeggcqtQurca circulatory disease (20 sources)Disorder of carotid artery; Translations: [Disorder of arteries and arterioles, unspecified]Onset: 279099-72-9761RprluxvUheun connective tissue disease (2 sources)Pain in right foot; Translations: [Pain in right foot]02-08-2025 EpisodicOther eye disorders (20 sources)Vitreous degeneration of right eye; Translations: [Vitreous degeneration, right eye]Onset: 046434-99-3102LzvmaoqJzuua hematologic conditions (4 sources)Personal history of diseases of the blood and blood-forming organs and certain disorders involving the immune mechanism; Translations: [PERS HX DZ BLD/BLD-FRM ORG IMMN MCH]Onset: 64-43-5052RwvqlyadRphaa injuries and conditions due to external causes (1 source)Heat syncope; Translations: [Heat syncope, initial encounter] 66-77-1848RelnfojpEjkhn lower respiratory disease (20 sources)Post-inflammatory pulmonary fibrosis; Translations: [Pulmonary fibrosis, unspecified]Onset: 282783-02-7592DcfwiouIwlar lower respiratory disease (20 sources)Pulmonary granuloma; Translations: [Pulmonary fibrosis, unspecified] Onset: 563551-83-1255QboepklShibj lower respiratory disease (1 source)Dyspnea; Translations: [Other forms of dyspnea]53-82-3140DayhzwabWenjd lower respiratory disease (1 source)Other forms of dyspnea; Translations: [Other forms of dyspnea]Onset: 67-55-1544CnrxbbaaTtumx non-epithelial cancer of skin (3 sources)History of malignant neoplasm of skin; Translations: [Personal history of other malignant neoplasm of skin]Onset: 193859-95-6672Tecmthuf Other skin disorders (6 sources)Change in skin lesion; Translations: [Disorder of pigmentation, unspecified]16-29-5543ZikajnbvSfijdxbyj (except that caused by tuberculosis or sexually transmitted disease) (4 sources)Right lower zone pneumonia; Translations: [Pneumonia, unspecified organism]36-51-6540SjoddtfgEgjaemzzg heart disease (20 sources)Pulmonary hypertension; Translations: [Pulmonary hypertension, unspecified]Onset: 191955-84-5042EvdctgiKjhznytl codes; unclassified (4 sources)Active advance directive (copy within chart) ; Translations: [Other specified health status]95-12-9642MtsqehqgQhvptepc codes; unclassified (4 sources)Body mass index 20-24 - normal; Translations: [Body mass index (BMI) 22.0-22.9, adult]61-71-3891WogavwfuJhlebbyroxf; intervertebral disc disorders; other back problems (20 sources)Prolapsed lumbar intervertebral disc; Translations: [Other intervertebral disc displacement, lumbarregion]Onset: 715470-18-3894 ChronicUnclassified (2 sources)Body mass index 20-24 - dtwerh86-29-9835Ahaxanxpbdqe (2 sources)Drug therapy npaswbp87-59-0403Yktydieyficd (2 sources)Ezgnqbwjbpgt08-97-1589Eepncdvmulkp (1 source)CONTACT W/AND (SUSP) EXPOS COVID-19; Translations: [CONTACT W/AND (SUSP) EXPOS COVID-19]Onset: 72-39-9276Qbjwzcqsefmx (1 source)Autogenerated ProblemOnset: 149835-52-6250Bhhxmtkvhfji (1 source)Permanent atrial fibrillation; Translations: [Permanent atrial fibrillation (HCC)]Onset: 86-82-8223Cbqbmpzrhkba (1 source)Chronic atrial fibrillation, unspecified; Translations: [Chronic a-fib (HCC)]Onset: 06-29-2021 Past or Other Problems Problem ClassificationProblemDateDocumented DateEpisodic/ChronicAcute and unspecified renal failure (20 sources)Acute injury of kidney; Translations: [Acute kidney failure, unspecified]Onset: 701046-15-1829EyzpmiseTelwimbsmo disorders (20 sources)Adjustment disorder with mixed emotional features; Translations: [Adjustment disorder with other symptoms]Onset: 04-08-2017 Resolved: 799051-65-0354TezupoaRcizjkkwikvfip/social admission (20 sources)Discharge status; Translations: [Encounter for administrative examinations, unspecified]Onset: 971271-71-1583HtioltkaFjrukjd disorders (20 sources)Mixed anxiety and depressive disorder; Translations: [Adjustment disorder with mixed anxiety and depressed mood]Onset: 12-26-2022 Resolved: 535129-68-3507FippacpVmmcncbloskqe of surgical procedures or medical care (15 sources)Cardiac insufficiency following cardiac surgery; Translations: [Postprocedural cardiac insufficiency following cardiac surgery]Onset: 06-19-2021 Resolved: 851107-04-4088PkmpumfRdefrheunvsur of surgical procedures or medical care (15 sources)Hypotension following procedure; Translations: [Postprocedural hypotension]Onset: 06-19-2021 Resolved: 555927-80-5976XgekznleNxneqqwrzj and other anemia (4 sources)Iron deficiency anemia, unspecified; Translations: [IRON DEFICIENCY ANEMIA UNSPECIFIED]Onset: 53-95-5279UlzpjuytNmnfewzear and other anemia (15 sources)Iron deficiency anemia; Translations: [Iron deficiency anemia, unspecified]Onset: 788182-90-3321HkmcsrjbMqggwpai mellitus without complication (15 sources)Metabolic stress hyperglycemia; Translations: [Hyperglycemia, unspecified]Onset: 06-20-2021 Resolved: 758866-53-7391PgnaovefUaqel and electrolyte disorders (15 sources)Hypervolemia; Translations: [Fluid overload, unspecified]Onset: 06-20-2021 Resolved: 180289-84-9250XrsstoorTxijm valve disorders (20 sources)Heart murmur; Translations: [Cardiac murmur, unspecified]Onset: 852971-47-3916RmnohlwlIvzu disorders (20 sources)Mood disordersOnset: 374568-18-8674Efqczobofvd deficiencies (4 sources)Iron deficiency; Translations: [IRON DEFICIENCY]Onset: 04-25-2022 EpisodicOther aftercare (1 source)buttermaker helper (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 aspirin; Translations: [APICULTURE TEACHER CURRENT USE OF ASPIRIN]Onset: 80-04-0311DinhifqzCdemc aftercare (1 source)Other residential (current) drug therapy; Translations: [OTH USP CURRENT DRUG THERAPY]Onset: 72-63-0691QpjblrfzXwhnt aftercare (20 sources)Long-term current use of anticoagulant; Translations: [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]Onset: 242129-62-7667YdbgbbauJisvw aftercare (20 sources)Polypharmacy ; Translations: [Other residential (current) drug therapy]Onset: 959477-38-3775CwlvvhnvMseha bone disease and musculoskeletal deformities (20 sources)Disorder of bone; Translations: [Other specified disorders of bone density and structure, right thigh]Onset: 605784-79-4933GurrgminTqxuc lower respiratory disease (20 sources)Dyspnea on exertion; Translations: [Dyspnea, unspecified]Onset: 295096-63-6618DwzpyzvpEbgyd lower respiratory disease (20 sources)Nodule of lung; Translations: [Solitary pulmonary nodule]Onset: 142737-38-5848YmfhdwceGyndj nervous system disorders (20 sources)Postoperative pain ; Translations: [Other acute postprocedural pain] Onset: 394346-30-4370IzgqxrtfLuwrxifn; pneumothorax; pulmonary collapse (15 sources)Atelectasis; Translations: [Atelectasis]Onset: 06-19-2021 Resolved: 400419-98-1270NxdrahkoOxqtxzqd codes; unclassified (20 sources)History of cardioversion; Translations: [Other specified postprocedural states]Onset: 844447-81-8141BupweldkHdpsmpcn codes; unclassified (20 sources)Family history of coronary arteriosclerosis; Translations: [Family history of ischemic heart disease and other diseases of the circulatory system] Onset: 451871-03-6555AkagakscNnfpvynd codes; unclassified (20 sources)Other specified health status; Translations: [Other specified conditions influencing health status]Onset: 05-28-2016 Resolved: 874672-06-3058NoegvmqzMonsqzt (6 sources)Syncope and collapse; Translations: [Syncope and collapse]Onset: 736490-22-3106Wlmjymql Results Test NameValueInterpretationReference RangeFacilityCNOVon 33-93-7695LYEOUwiinm Visit (CAEPAV) BRITTA TORRES ([id number]) 1945 M Date Time Provider Department 05/17/25 8:30 AM JAYCERANDYAMY CAEPAV During your visit today, we recorded the following information about you: Pulse Blood pressure Weight 87/minute 132/88 78.2 kg Amy Subramanian APRN.DJ INSTRUCTOR 05/17/2025 8:27 AM Signed Please schedule a pacemaker check, Dr. Bagley for six months Please continue with current medication regimen. I will call patient with Dr. Goldberg recommendations concerning ASA 81mg Amy Subramanian APRN.DJ INSTRUCTOR 05/17/2025 8:40 AM Signed [facility] [place] [facility] Department of Cardiovascular Medicine SECTION OF CARDIAC PACING and ELECTROPHYSIOLOGY OUTPATIENT VISIT DATE May 16, 2025 OUTPATIENT VISIT TYPE ESTABLISHED Recording using FFFavs software for draft documentation of the visit was discussed with the patient/authorized telemarketing representative; all questions welcomed and answered. Patient/authorized telemarketing representative agreed to proceed PRIMARY CARE PHYSICIAN: Austen Ontiveros MD [address] [place] [address] CHIEF COMPLAINT: follow up permanent atrial fibrillation, s/p pacemaker (single lead) HISTORY OF PRESENT ILLNESS: Mr. Torres is a 80 year old male who presents today for evaluated by Dr. Goldberg, Dr. Bagley, Dr. Hines permanent atrial fibrillation, s/p single lead pacemaker (h/o sx syncope, 03-15-25, medtronic, LBB lead), preserved LV systolic heart function (echo: 03-12-25: EF 57%), CAD s/p CABG x3 (2020: PECK/LAD, SVG/PDA, left radial to OM1, tricuspid valve repair, s/p AVR inspiris valve, left atrial clip, cryo maze), Other PMH of hypertension, dyslipidemia, residential anticoagulation. Last visit with MAYANK monitor worn [...] after first dose) Coronary artery disease involving [place] coronary artery of [place] heart with angina pectoris 06/2021 s/p CABG [...] ECHO) 07/08/2006 TONSILLECTOMY AND ADENOIDECTOMY SOCIAL HISTORY SOCIAL HISTORY[1] FAMILY HISTORY Problem [...] 1 tablet by mouth every other day. Patient should start on March 26, 2025. [...] VITAMIN ORAL) Take by mouth once daily. [place]-3 Fatty Acids-Vitamin E 1,000 mg cap Take 1 capsule by mouth twice daily. REVIEW OF SYSTEMS: GENERAL: Negative for: Weight loss or gain, Fev (more content not included)... NormalUk HealthcareECG COMPLETEon 14-95-1170QSZ COMPLETEVentricular Rate : 86 BPM QRS Duration : 144 ms Q-T Interval : 418 ms QTC Calculation(Bazett) : 500 ms Calculated R Jefferson : 22 degrees Calculated T Jefferson : 30 degrees ATRIAL FIBRILLATION COMPLETE RIGHT BUNDLE BRANCH BLOCK ABNORMAL ECG Confirmed by TARIQ CROOKS M.D. ([id number]) on 05/18/2025 7:18:33 AM NAME : BRITTA TORRES PID : [id number] : 1945 Gender : Male Race : ORD : [id number] Procedure Date : May 17 2025 08:01:03 Edit Date : May 18 2025 07:18:40 Diagnosis: ATRIAL FIBRILLATION COMPLETE RIGHT BUNDLE BRANCH BLOCK ABNORMAL ECG Confirmed by TARIQ CROOKS M.D. ([id number]) on 05/18/2025 7:18:33 AM Test Reason : Follow Up Location : 192 : AVCRD Overread By : TARIQ CROOKS M.D. Edited By : TARIQ CROOKS M.D. Referred By : Amy Subramanian Acquired by : ,[facility] CenterCNPNon 90-70-7169OZZKLiyqmtomt (CARDAV) BRITTA TORRES ([id number]) 1945 M Date Time Provider Department 03/22/25 EVER GOLDBERG During your visit today, we recorded the following information about you: ChanellSlavaPaulHannah 03/22/2025 2:19 PM Signed Patient had echocardiogram done on 03/12/25 prior to implanted device. He is scheduled to have one in May per 's request at last office visit 10/09/24. Patient would like to know if the May one is needed now. Please advise. Agnes Reina RN 03/23/2025 5:25 PM Signed Spoke with patient. Recent echo is OK prior to his appt with Yusuf. No need for repeat. Allergies As of Date: 03/22/2025 Noted Allergy Reaction DECONAMINE (CHLORPHENIRAMINE-PSEU*07/20/2013 16 - Unknown NIASPAN (NIACIN) 07/20/2013 16 - Unknown PSEUDOEPHEDRINE 12/26/2022 16 - Unknown Comments: Other Reaction(s): Urinary Retention SULFAMETHOXAZOLE-TRIMETHOPRIM 07/20/2013 16 - Unknown Date Reviewed: 03/12/2025 Reviewed by: Luke Gr, PRISCA - Fully Assessed Reason for Visit: Patient Question [2413] Prescriptions as of 04/29/2025 - apixaban (ELIQUIS) 5 mg tab(s) Take 1 tablet by mouth two times a day. Patient should start on March 16, 2025. - aspirin, enteric coated (ADULT LOW DOSE ASPIRIN) 81 mg EC tablet Take 1 tablet by mouth every other day. Patient should start on March 26, 2025. - bisoprolol (ZEBETA) 10 mg tablet Take 1 tablet by mouth two times a day. - rosuvastatin (CRESTOR) 10 mg tablet Take 1 tablet by mouth once daily. - cholecalciferol, vitamin D3, (VITAMIN D3 ORAL) Take by mouth. - ferrous sulfate (IRON ORAL) Take by mouth. - tamsulosin HCl (FLOMAX ORAL) Take 0.4 mg by mouth once daily. - CALCIUM CARBONATE/VITAMIN D3 (VITAMIN D-3 ORAL) Take 2,000 Units by mouth twice daily. - montelukast 10 mg tablet Take 10 mg by mouth daily at bedtime. - MULTIVIT ANDMINERALS/FERROUS FUM (MULTI VITAMIN ORAL) Take by mouth once daily. - [place]-3 Fatty Acids-Vitamin E 1,000 mg cap Take 1 capsule by mouth twice daily. Problem List As Of Date 03/22/2025 Noted Resolved Chronic a-fib (HCC) [I48.20] 05/18/2013 [...] (HCC) [I48.0] 10/09/2024 S/P AVR [Z95.2] 10/09/2024 Bradycardia [R00.1] 03/12/2025 Syncope [R55] 03/12/2025 Encounter Status:Closed by HANNAH LAI on 04/29/25[facility] 12 leadon 44-40-6728Kbdbjmhnyxx Rate : 82 BPM Atrial Rate : 105 BPM P-R Interval : 56 ms QRS Duration : 159 ms Q-T Interval : 437 ms QTC Calculation(Bazett) : 511 ms Calculated P Jefferson : 0 degrees Calculated R Jefferson : 48 degrees Calculated T Jefferson : -2 degrees Atrial flutter with Ventricular-paced complexes Right bundle branch block Abnormal ECG Confirmed by MAX ZAZUETA DO ([id number]) on 03/21/2025 10:36:15 AM NAME : BROOKE TORRESY PID : [id number] : 1945 Gender : Male Race : ORD : [id number] Procedure Date : Mar 12 2025 11:27:27 Edit Date : Mar 21 2025 10:36:17 Diagnosis: Atrial flutter with Ventricular-paced complexes Right bundle branch block Abnormal ECG Confirmed by MAX ZAZUETA DO ([id number]) on 03/21/2025 10:36:15 AM Test Reason : Post-OP Location : 400 : FVEKG 16 Overread By : MAX ZAZUETA DO Edited By : MAX ZAZUETA DO Referred By : EEVR GOLDBERG Acquired by : NM,CCFRadiology, Radiologist, MD - 03/21/2025 Ventricular Rate : 82 BPM Atrial Rate : 105 BPM P-R Interval : 56 ms QRS Duration : 159 ms Q-T Interval : 437 ms QTC Calculation(Bazett) : 511 ms Calculated P Jefferson : 0 degrees Calculated R Jefferson : 48 degrees Calculated T Jefferson : -2 degrees Atrial flutter with Ventricular-paced complexes Right bundle branch block Abnormal ECG Confirmed by MAX ZAZUETA DO ([id number]) on 03/21/2025 10:36:15 AM NAME : BRIANBRITTA PID : [id number] : 1945 Gender : Male Race : ORD : [id number] Procedure Date : Mar 12 2025 11:27:27 Edit Date : Mar 21 2025 10:36:17 Diagnosis: Atrial flutter with Ventricular-paced complexes Right bundle branch block Abnormal ECG Confirmed by MAX ZAZUETA DO ([id number]) on 03/21/2025 10:36:15 AM Test Reason : Post-OP Location : 400 : FVEKG 16 Overread By : MAX ZAZUETA DO Edited By : MXA ZAZUETA DO Referred By : EVER GOLDBERG Acquired by : PATRICIA RODRIGUEZ [facility] 12 leadOrdered By: Radiologist Radiology on 33-47-7467QZRXPike County Memorial Hospital Work Phone: EKGon 80-99-1224Wzzvnrhywzb Rate : 75 BPM Atrial Rate : 231 BPM P-R Interval : 262 ms QRS Duration : 159 ms Q-T Interval : 439 ms QTC Calculation(Bazett) : 491 ms Calculated R Jefferson : 45 degrees Calculated T Jefferson : 18 degrees Atrial flutter with varied AV block, Right bundle branch block Abnormal ECG Confirmed by MAX ZAZUETA DO ([id number]) on 03/21/2025 10:04:34 AM NAME : BROOKE TORRESY PID : [id number] : 1945 Gender : Male Race : ORD : Procedure Date : Mar 12 2025 06:48:46 Edit Date : Mar 21 2025 10:04:39 Diagnosis: Atrial flutter with varied AV block, Right bundle branch block Abnormal ECG Confirmed by MAX ZAZUETA DO ([id number]) on 03/21/2025 10:04:34 AM Test Reason : Location : 400 : [facility] 16 Overread By : MAX ZAZUETA DO Edited By : MAX ZAZUETA DO Referred By : EVER GOLDBERG Acquired by : JENNIFERCCFRadiology, Radiologist, MD - 03/21/2025 Ventricular Rate : 75 BPM Atrial Rate : 231 BPM P-R Interval : 262 ms QRS Duration : 159 ms Q-T Interval : 439 ms QTC Calculation(Bazett) : 491 ms Calculated R Jefferson : 45 degrees Calculated T Jefferson : 18 degrees Atrial flutter with varied AV block, Right bundle branch block Abnormal ECG Confirmed by MAX ZAZUETA DO ([id number]) on 03/21/2025 10:04:34 AM NAME : BRIANBRITTA PID : [id number] : 1945 Gender : Male Race : ORD : Procedure Date : Mar 12 2025 06:48:46 Edit Date : Mar 21 2025 10:04:39 Diagnosis: Atrial flutter with varied AV block, Right bundle branch block Abnormal ECG Confirmed by MAX ZAZUETA DO ([id number]) on 03/21/2025 10:04:34 AM Test Reason : Location : 400 : [facility] 16 Overread By : MAX ZAZUETA DO Edited By : MAX ZAZUETA DO Referred By : EVER GOLDBERG Acquired by : PATRICIA RODRIGUEZ HealthcareEKGOrdered By: Radiologist Radiology on 71-97-0132GKBJ [employer] Work Phone: basic metabolic 2000 panelon 50-24-3455Ymhif gap [Moles/Vol]10 mmol/LNormal8-15[facility] HospitalComment on above:Order Comment: Specimen Type: BLOOD SPECIMEN Ordering Facility: [facility] Address: [address] [place], [place] [address]Performed By: #### 56585-0 #### [facility] CLIA [id number] [address] [place] [address] [place] AMERICACalcium [Mass/Vol]9.6 mg/dLNormal 8.5-10.2[facility] HospitalComment on above:Order Comment: Specimen Type: BLOOD SPECIMEN Ordering Facility: [facility] Address: [address] [place], [place] [address]Performed By: #### 61802-1 #### [facility] CLIA [id number] [address] [place] [address] [place] AMERICAChloride [Moles/Vol]103 mmol/LNormal 98-107[facility] InfirmaryComment on above:Order Comment: Specimen Type: BLOOD SPECIMEN Ordering Facility: [facility] Address: [address] [place], [place] [address]Performed By: #### 88294-7 #### [facility] CLIA [id number] [address] [place] [address] [place] AMERICACO2 [Moles/Vol]27 mmol/EMwbaxx42-43 [facility] HospitalComment on above:Order Comment: Specimen Type: BLOOD SPECIMEN Ordering Facility: [facility] Address: [address] [place], [place] [address]Performed By: #### 79654-5 #### [facility] CLIA [id number] [address] [place] [address] [place] AMERICACreatinine [Mass/Vol]0.94 mg/dL Normal0.73-1.22[facility] InfirmaryCommclaren flint on above:Order Comment: Specimen Type: BLOOD SPECIMEN Ordering Facility: [facility] Address: [address] [place], [place] [address]Performed By: #### 56173-1 #### [facility] CLIA [id number] [address] [place] [address] [place] AMERICAeGFRcr SerPlBld CKD-EPI 365453 mL/min/1.73m???Normal>=60[facility] InfirmaryCommclaren flint on above:Order Comment: Specimen Type: BLOOD SPECIMEN Ordering Facility: [facility] Address: [address] [place], [place] [address]Result Comment: Estimated Glomerular Filtration Rate (eGFR) is calculated using the 2020 CKD-EPI cre atinine equation. This equation utilizes serum creatinine, sex, and age as parameters. The creatinine assay has traceable calibration to isotope dilution- mass spectrometry. Refer to KDIGO guidelines for clinical interpretation. In patients with unstable renal function, e.g. those with acute kidney injury, the eGFR may not accurately reflect actual GFR.Performed By: #### 01345-9 #### [facility] CLIA [id number] [address] [place] [address] [place] AMERICAGlucose [Mass/Vol]99 mg/dLNormal 74-99[facility] on above:Order Comment: Specimen Type: BLOOD SPECIMEN Ordering Facility: [facility] Address: [address] [place], [place] [address]Result Comment: The [place] Diabetes Association (ADA) provides guidance for cutoff values for fasting glucose and random glucose. The ADA defines fasting as no caloric intake for at least 8 hours. Fasting plasma glucose results between 100 to 125 mg/dL indicate increased risk for diabetes (prediabetes). Fasting plasma glucose results greater than or equal to 126 mg/dL meet the criteria for diagnosis of diabetes. In the absence of unequivocal hyperglycemia, results should be confirmed by repeat testing. In a patient with classic symptoms of hyperglycemia or hyperglycemic crisis, random plasma glucose results greater than or equal to 200 mg/dL meet the criteria for diagnosis of diabetes. Reference: Standards of Medical Care in Diabetes 2016, [place] Diabetes Association. Diabetes Care. 2016.39(Suppl 1).Performed By: #### 63888-8 #### [facility] CLIA [id number] [address] [place] [address] [place] AMERICAPotassium [Moles/Vol]4.6 mmol/L Normal3.7-5.1[facility] HospitalComment on above:Order Comment: Specimen Type: BLOOD SPECIMEN Ordering Facility: [facility] Address: [address] [place], [place] [address]Performed By: #### 00615-2 #### [facility] CLIA [id number] [address] [place] [address] [place] AMERICASodium [Moles/Vol]140 mmol/LNormal 136-144[facility] HospitalComment on above:Order Comment: Specimen Type: BLOOD SPECIMEN Ordering Facility: [facility] Address: [address] [place], [place] [address]Performed By: #### 49662-7 #### [facility] CLIA [id number] [address] [place] [address] [place] AMERICAUrea nitrogen [Mass/Vol]29 mg/dLHigh 9-24[facility] HospitalComment on above:Order Comment: Specimen Type: BLOOD SPECIMEN Ordering Facility: [facility] Address: [address] [place], [place] [address]Performed By: #### 86747-7 #### [facility] CLIA [id number] [address] [place] [address] [place] AMERICACBC panel Auto (Bld)on 03-12-2025 Erythrocyte distribution width (RBC) [Ratio]13.7 %Srjosy33.5-15.0[facility] HospitalComment on above:Order Comment: Specimen Type: BLOOD SPECIMEN Ordering Facility: [facility] Address: [address] [place], [place] [address]Performed By: #### 14785-1 #### [facility] CLIA [id number] [address] [place] [address] [place] AMERICAHematocrit (Bld) [Volume fraction] 41.4 %Murhdh81.0-51.0[facility] HospitalComment on above:Order Comment: Specimen Type: BLOOD SPECIMEN Ordering Facility: [facility] Address: [address] [place], [place] [address]Performed By: #### 19976-4 #### [facility] CLIA [id number] [address] [address]ETHemoglobin (Bld) [Mass/Vol]13.5 g/dL Fpjbty31.0-17.0[facility] HospitalComment on above:Order Comment: Specimen Type: BLOOD SPECIMEN Ordering Facility: [facility] Address: [address] [place], [place] [address]Performed By: #### 66108-0 #### [facility] CLIA [id number] [address] [place], [place] [address]H (RBC) [Entitic mass]29.7 pg Fjlshv83.0-34.0[facility] HospitalComment on above:Order Comment: Specimen Type: BLOOD SPECIMEN Ordering Facility: [facility] Address: [address] [place], [place] [address]Performed By: #### 73525-3 #### [facility] CLIA [id number] [address] [place], [place] [address]MCHC (RBC) [Mass/Vol]32.6 g/dLNormal 30.5-36.0[facility] HospitalComment on above:Order Comment: Specimen Type: BLOOD SPECIMEN Ordering Facility: [facility] Address: [address] [place], [place] [address]Performed By: #### 24995-5 #### [facility] CLIA [id number] [address] [place], [place] [address]V (RBC) [Entitic vol]91.0 fLNormal 80.0-100.0[facility] HospitalComment on above:Order Comment: Specimen Type: BLOOD SPECIMEN Ordering Facility: [facility] Address: [address] [place], [place] [address]Performed By: #### 87355-9 #### [facility] CLIA [id number] [address] [place] [address] [place] AMERICANucleated RBC (Bld) [#/Vol]10*3/uL Normal<0.01[facility] HospitalComment on above:Order Comment: Specimen Type: BLOOD SPECIMEN Ordering Facility: [facility] Address: [address] [place], [place] [address]Performed By: #### 97065-2 #### [facility] CLIA [id number] [address] [place] [address] [place] AMERICAPlatelet mean volume (Bld) [Entitic vol]10.8 fLNormal9.0-12.7[facility] HospitalComment on above:Order Comment: Specimen Type: BLOOD SPECIMEN Ordering Facility: [facility] Address: [address] [place], [place] [address]Performed By: #### 54567-7 #### [facility] CLIA [id number] [address] [place] [address] [place] AMERICAPlatelets (Bld) [#/Vol]125 10*3/uL [id number] HospitalComment on above:Order Comment: Specimen Type: BLOOD SPECIMEN Ordering Facility: [facility] Address: [address] [place], [place] [address]Result Comment: No clot detected. Performed By: #### 13904-1 #### [facility] CLIA [id number] [address] [place] [address] [place] AMERICARBC (Bld) [#/Vol]4.55 10*6/uLNormal 4.20-6.00[facility] HospitalComment on above:Order Comment: Specimen Type: BLOOD SPECIMEN Ordering Facility: [facility] Address: [address] [place], [place] [address]Performed By: #### 75066-2 #### [facility] CLIA [id number] [address] [place] [address] [place] AMERICAWBC (Bld) [#/Vol]4.58 10*3/uLNormal 3.70-11.00[facility] HospitalComment on above:Order Comment: Specimen Type: BLOOD SPECIMEN Ordering Facility: [facility] Address: [address] [place], [place] [address]Performed By: #### 42626-6 #### [facility] [id number] [address] [place] [address] [place] AMERICACCF CBC PNL BLD AUTOon 01-65-0162RRO NRBC # BLD AUTO<0.01NINFEllis Fischel Cancer Center PLATELET # BLD [id number] County Memorial HospitalComment on above:No clot detected.CCF PMV BLD AUTO10.8 fL9.0 - 12.7 fL [facility] HospitalCCF WBC # BLD AUTO4.58P[facility] Memorial HospitalErythrocyte distribution width (RBC) [Ratio]13.7 %11.5 - 15.0 %[facility] HospitalHematocrit (Bld) [Volume fraction]41.4 %39.0 - 51.0 %[facility] HospitalHemoglobin (Bld) [Mass/Vol]13.5 g/dL 13.0 - 17.0 g/dLPike County Memorial HospitalInterpretation and review of laboratory results AbnormalSSM RehabH (RBC) [Entitic mass]29.7 pg26.0 - 34.0 pgSSM RehabHC (RBC) [Mass/Vol]32.6 g/dL30.5 - 36.0 g/dLSSM RehabV (RBC) [Entitic vol]91 fL80.0 - 100.0 fLPike County Memorial HospitalRBC (Bld) [#/Vol]4.55 10*6/uL 4.20 - 6.00 m/uLPike County Memorial HospitalSpecimen Type: BLOOD SPECIMEN Ordering Facility: [facility] Address: [address] [place] [address] Original Ordering Provider: SOWMYA DAVENPORT HealthcareECG COMPLETE on [id number] COMPLETEVentricular Rate : 82 BPM Atrial Rate : 105 BPM P-R Interval : 56 ms QRS Duration : 159 ms Q-T Interval : 437 ms QTC Calculation(Bazett) : 511 ms Calculated P Jefferson : 0 degrees Calculated R Jefferson : 48 degrees Calculated T Jefferson : -2 degrees Atrial flutter with Ventricular-paced complexes Right bundle branch block Abnormal ECG Confirmed by MAX ZAZUETA DO ([id number]) on 03/21/2025 10:36:15 AM NAME : BRITTA TORRES PID : [id number] : 1945 Gender : Male Race : ORD : [id number] Procedure Date : Mar 12 2025 11:27:27 Edit Date : Mar 21 2025 10:36:17 Diagnosis: Atrial flutter with Ventricular-paced complexes Right bundle branch block Abnormal ECG Confirmed by MAX ZAZUETA DO ([id number]) on 03/21/2025 10:36:15 AM Test Reason : Post-OP Location : 400 : [facility] 16 Overread By : MAX ZAZUETA DO Edited By : MAX ZAZUETA DO Referred By : EVER GOLDBERG Acquired by : JENNIFERBellevue Hospital [id number]: - Exam indication: Routine surveillance of mild valvular regurgitation (>3yrs) - The left ventricle is normal in size. Left ventricular systolic function is normal. EF = 57 5% (2D biplane) Left ventricular diastolic function was not evaluated due to AF. - The right ventricle is mildly dilated. Right ventricular systolic function is mildly decreased. - The left atrial cavity is mildly dilated. - The right atrial cavity is moderately dilated. - Hernandez MC3 Tricuspid Ring (size #32). There is [...] LVEF appears slightly better on current study. * * * Final * * *[facility] Echocardiography Report: Transthoracic Echo [facility] Date of service: 03/12/2025 7:18:26 AM Ordering physician: EVER GOLDBERG Exam indication: Routine surveillance of mild valvular regurgitation (>3yrs) Technologist: Rachna Goncalves [facility] and staff Interpreting physician: Tariq Crooks MD PATIENT: Name: MR. BRITTA TORRES : 1945 Age: 79 years Gender: M History of hypertension, dyslipidemia, coronary artery disease, arrhythmia and valvular heart disease. 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 Height: 185.40 cm BSA: 2.02 m Weight: 79.50 kg BMI: 23.1 kg/m Heart rate 70 bpm Blood pressure 145/69 mmHg Color Doppler was utilized to interrogate the cardiac valves assessed and spectral Doppler was utilized to determine the flow velocities and pressure gradients reported in this exam. MEASUREMENTS: Value Indexed Normal Max aortic dimension 3.6 cm Ao < 3.8 Left atrial volume 79 ml (Hudson's) 39 ml/m Deisy <= 34 LV ID (diastole) 4.1 cm (2D) 2.03 cm/m LV ID (systole) 2.9 cm (2D) 1.43 cm/m IVS, leaflet tips 1.4 cm (2D) Posterior wall thickness 1.4 cm (2D) Left ventricular mass 217 g (2D) 107 g/m LV stroke volume 65 ml (2D biplane) LV end diastolic volume 113 ml (2D biplane) 56.1 ml/m 34<=EDVi<75 LV end systolic volume 49 ml (2D biplane) 24.0 ml/m Ejection Fraction 57 % (2D biplane) EF > 52 FINDINGS: LEFT VENTRICLE The left ventricle is normal in size. Left ventricular systolic function is normal. Left ventricular diastolic function was not evaluated due to AF. Wall Motion: All scored segments are normal. RIGHT VENTRICLE The right ventricle is mildly dilated. Right ventricular systolic function is mildly decreased globally. RV systolic tissue Doppler velocity is 7.9 cm/s. Tricuspid annular displacement is 1.3 cm. Estimated right ventricular systolic pressure is 47 mmHg consistent with mild pulmonary hypertension. Estimated right atrial pressure is 15 mmHg based on IVC assessment. LEFT ATRIUM The left atrial cavity is mildly dilated. RIGHT ATRIUM The right atrial cavity is moderately dilated. Inferior Vena Cava: The inferior vena cava appears dilated measuring 2.5 cm. The vessel decreases less than 50 percent with inspiration. MITRAL VALVE There is mild mitral annular calcification observed posterior. There is no mitral valve stenosis. There is mild (1+ - 2+) mitral valve regurgitation. There is mild thickening. Regurgitant orifice area (PISA) is 0.12 cm . TRICUSPID VALVE Hernandez MC3 Tricuspid Ring size #32. There is mild (1+) tricuspid valve regurgitation. The mean valve gradient is 3 mmHg. AORTIC VALVE Inspiris prosthetic valve size #25. There is trace aortic valve regurgitation. The peak gradient is 11 mmHg (peak velocity = 169.0 cm/s). The mean gradient is 6 mmHg. The LVOT mean velocity is 66.2 cm/s. The aortic VTI is 38.4 cm. The mean velocity in the aortic valve is 115.0 cm/s. The dimensionless valve index is 0.52. PULMONIC VALVE The pulmonic valve cusps are structurally normal. There is trace pulmonic valve regurgitation. AORTA The visualized aorta is normal in size. Measurements - Mid ascending aorta 3.6 cm. PULMONARY ARTERIES The pulmonary arteries are unseen or not interrogated. INTERATRIAL SEPTUM There is no evidence of intracardiac shunting as detected by Doppler. INTERVENTRICULAR SEPTUM There is a diastolic bounce of the interventricular septum secondary to prior cardiac surgery. PERICARDIUM There is no pericardial effusion. IDLEWILD CARDIOLOGYTwin City HospitalEchocardiographyEchocardiography Report: Transthoracic Echo [facility] Date of service: 03/12/2025 7:18:26 AM Ordering physician: EVER GOLDBERG Exam indication: Routine surveillance of mild valvular regurgitation (>3yrs) Technologist: Rachna Goncalves [facility] and staff Interpreting physician: Tariq Crooks MD PATIENT: Name: MR. BRITTA TORRES : 1945 Age: 79 years Gender: M History of hypertension, dyslipidemia, coronary artery disease, arrhythmia and valvular heart disease. 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 Height: 185.40 cm BSA: 2.02 m Weight: 79.50 kg BMI: 23.1 kg/m Heart rate 70 bpm Blood pressure 145/69 mmHg Color Doppler was utilized to interrogate the cardiac valves assessed and spectral Doppler was utilized to determine the flow velocities and pressure gradients reported in this exam. MEASUREMENTS: Value Indexed Normal Max aortic dimension 3.6 cm Ao < 3.8 Left atrial volume 79 ml (Hudson's) 39 ml/m Deisy <= 34 LV ID (diastole) 4.1 cm (2D) 2.03 cm/m LV ID (systole) 2.9 cm (2D) 1.43 cm/m IVS, leaflet tips 1.4 cm (2D) Posterior wall thickness 1.4 cm (2D) Left ventricular mass 217 g (2D) 107 g/m LV stroke volume 65 ml (2D biplane) LV end diastolic volume 113 ml (2D biplane) 56.1 ml/m 34<=EDVi<75 LV end systolic volume 49 ml (2D biplane) 24.0 ml/m Ejection Fraction 57 % (2D biplane) EF > 52 FINDINGS: LEFT VENTRICLE The left ventricle is normal in size. Left ventricular systolic function is normal. Left ventricular diastolic function was not evaluated due to AF. Wall Motion: All scored segments are normal. RIGHT VENTRICLE The right ventricle is mildly dilated. Right ventricular systolic function is mildly decreased globally. RV systolic tissue Doppler velocity is 7.9 cm/s. Tricuspid annular displacement is 1.3 cm. Estimated right ventricular systolic pressure is 47 mmHg consistent with mild pulmonary hypertension. Estimated right atrial pressure is 15 mmHg based on IVC assessment. LEFT ATRIUM The left atrial cavity is mildly dilated. RIGHT ATRIUM The right atrial cavity is moderately dilated. Inferior Vena Cava: The inferior vena cava appears dilated measuring 2.5 cm. The vessel decreases less than 50 percent with inspiration. MITRAL VALVE There is mild mitral annular calcification observed posterior. There is no mitral valve stenosis. There is mild (1+ - 2+) mitral valve regurgitation. There is mild thickening. Regurgitant orifice area (PISA) is 0.12 cm . TRICUSPID VALVE Hernandez MC3 Tricuspid Ring size #32. There is mild (1+) tricuspid valve regurgitation. The mean valve gradient is 3 mmHg. AORTIC VALVE Inspiris prosthetic valve size #25. There is trace aortic valve regurgitation. The peak gradient is11 mmHg (peak velocity = 169.0 cm/s). The mean gradient is 6 mmHg. The LVOT mean velocity is 66.2 cm/s. The aortic VTI is 38.4 cm. The mean velocity in the aortic valve is 115.0 cm/s. The dimensionless valve index is 0.52. PULMONIC VALVE The pulmonic valve cusps are structurally normal. There is trace pulmonic valve regurgitation. AORTA The visualized aorta is normal in size. Measurements - Mid ascending aorta 3.6 cm. PULMONARY ARTERIES The pulmonary arteries are unseen or not interrogated. INTERATRIAL SEPTUM There is no evidence of intracardiac shunting as detected by Doppler. INTERVENTRICULAR SEPTUM There is a diastolic bounce of the interventricular septum secondary to prior cardiac surgery. PERICARDIUM There is no pericardial effusion. CONCLUSIONS: - Exam indication: Routine surveillance of mild valvular regurgitation (>3yrs) - The left ventricle is normal in size. Left ventricular systolic function is normal. EF = 57 5% (2D biplane) Left ventricular diastolic function was not evaluated due to AF. - The right ventricle is mildly dilated. Right ventricular systolic function is mildly decreased. - The left atrial cavity is mildly dilated. - The right atrial cavity is moderately dilated. - Hernandez MC3 Tricuspid Ring (size #32). There is mild (1+) tricuspid valve regurgitation. The peakgradient is 6 mmHg and the mean gradient [...] LVEF appears slightly better on current study. * * * Final * * * Journal[employer] Medical Image : [id number] [facility] [id number] Rate : 75 BPM Atrial Rate : 231 BPM P-R Interval : 262 ms QRS Duration : 159 ms Q-T Interval : 439 ms QTC Calculation(Bazett) : 491 ms Calculated R Jefferson : 45 degrees Calculated T Jefferson : 18 degrees Atrial flutter with varied AV block, Right bundle branch block Abnormal ECG Confirmed by MAX ZAZUETA DO ([id number]) on 03/21/2025 10:04:34 AM NAME : BRITTA TORRES PID : [id number] : 1945 Gender : Male Race : ORD : Procedure Date : Mar 12 2025 06:48:46 Edit Date : Mar 21 2025 10:04:39 Diagnosis: Atrial flutter with varied AV block, Right bundle branch block Abnormal ECG Confirmed by MAX ZAZUETA DO ([id number]) on 03/21/2025 10:04:34 AM Test Reason : Location : 400 : [facility] 16 Overread By : MAX ZAZUETA DO Edited By : MAX ZAZUETA DO Referred By : EVER GOLDBERG Acquired by : [facility]ENNIFERFitchburg General Hospitaliology Study observation (narrative) [facility] HealthcareHISTORY PHYSICALon [id number] PHYSICALHNO ID: [id number] Author: SOWMYA STEVENSON APRN.CNP Service: Cardiovascular Medicine Author Type: Nurse Practitioner Type: H&P Filed: 03/12/2025 08:33 Note Text: UPDATED HANDP CARDIAC SERVICE DATE: 03/12/2025 SERVICE TIME: 8:29 AM PROCEDUREALIST: Surgeons and Role: * Dara Hines MD - Primary PHYSICAL EXAM MUST BE COMPLETED ON ADMISSION The History and Physical (completed in the past 30 days) has been reviewed and the patient has been examined. The contents accurately reflect the patient's condition with the following additions or revisions since the HANDP was completed. The most recent full HANDP can be found in the Electronic Medical Record dated 03/04/25. Planned Procedure: pacemaker insertion History of abnormal bleeding: No Assessment: Cardiac risk assessment completed with detailed review of cardiac test/results as documented above. Britta Torres is a 79 year old MALE with CAD s/p CABG x3 (PECK/LAD, SVG/PDA, left radial to OM1) with TVr, AVR (edward inspiris valve) and RAKEL clip and cryo maze 06/2021, permanent atrial fibrillation (on eliquis), recurrent syncope, bradycardia. He is here today for pacemaker insertion. LUNGS: Lungs clear to auscultation. No rales or wheezing. CARDIAC: Rhythm irregular, normal S1 and S2; gr 2/6 systolic murmur ABDOMEN: Abdomen soft, non-tender. EXTREMITIES: No edema. Lower legs with brown venous insufficiency discoloration. Plan: Pre op labs ordered. Last dose of eliquis Shae evening dose. Echo completed this morning 0730 Pre procedure antibiotic ordered. I spent a total of 30 minutes on the date of the service which included preparing to see the patient, [id number]-gn-[id number] patient care, completing clinical documentation, obtaining and/or reviewing separately obtained history, performing a medically appropriate examination, counseling and educating the patient/family/caregiver, and ordering medications, tests, or procedures. SIGNATURE: Sowmya Stevenson APRN.CNP PATIENT NAME: Britta Torres DATE: March 12, 2025 TIME: 8:29 [facility] PROGon [id number] [facility] ID: [id number] Author: LUKE GR RN Service: Nursing Author Type: Registered Nurse Type: Nursing Progress Note Filed: 03/12/2025 15:43 Note Text: Nursing Progress Note Topic of Note: Daily Note PATIENT NAME: Britta Torres Patient Location: EP LAB POOL/ EP LAB POOL Room: EP LAB POOL ( INVASIVE CARDIOLOGY) Assessment done, no neuro deficits, VSS, Vpaced on monitor, denies pain or discomfort. Right upper chest incision with pressure dressing intact, no bleeding or hematoma noted. See NPR for further assessment. Dr. Hines at bedside assessing pt. EKG done, CXR completed, device check done. pt. ambulating in hallway, pressure dressing removed, Aquacel dressing intact. Discharge orders obtained. Discharged via wheelchair with all personal belongings and to drive pt. home. This note was completed by: Luke [facility] HNO ID: [id number] Author: LUKE GR RN Service: Nursing Author Type: Registered Nurse Type: Nursing Progress Note Filed: 03/12/2025 07:55 Note Text: Nursing Progress Note Topic of Note: Daily Note PATIENT NAME: Britta Torres Patient Location: EP LAB POOL/ EP LAB POOL Room: EP LAB POOL (BASEBALL [employer] 16) pre procedure checklist completed, Echo done This note was completed by: [facility] [id number] NOHNO ID: [id number] Author: DARA HINES MD Service: Electrophysiology Author Type: Physician Type: Operative Report Filed: 03/12/2025 11:07 Note Text: The patient arrived to the electrophysiology lab and a safety time out was performed, confirming the correct patient was present for the correct procedure in the correct location. Written informed consent was obtained and/or verified to be documented. The patient was then connected to continuous monitoring of oxygen and blood pressure, as well as to the telemetry for monitoring of heart rate and rhythm. The patient was prepped and draped in a sterile fashion and a procedural time out was performed. The site of incision was marked and local anesthetic was administered. A 3-4 cm incision was made medial to the left deltopectoral groove and electrocautery was used to obtain hemostasis of the incision. Using blunt dissection and electrocautery, the tissue was dissected to the level of the pre-pectoral fascia where a pocket was created. After hemostasis was confirmed, venous access was obtained from within the pocket under ultrasound guidance using a micropuncture needle. A 7F sheath was inserted and the [employer] C315 long sheath was advanced over a long wire into the right atrium. The pacemaker lead was inserted into sheath and a His bundle electrogram was identified using the LBBaP lead. This position was saved on fluoroscopy and referenced. The lead was then positioned roughly 2 cm distal and about 1 cm inferior to this position. Unipolar pacemapping in this location revealed aVL/aVR discordance and superiorly directed axis with notching in II and w in V1. A perpendicular trajectory to the septum was confirmed in steep HERNESTO views. The lead was fixed in this location while pacing in a unipolar configuration. While advancing the lead, we continuously monitored impedance, unipolar injury, and QRS morphology. The lead was easily advanced into the septum until a qR morphology was seen in V1 and impedance began to decline. Bipolar pacing revealed positive ST elevations without any evidence of LV perforation. In this location we observed excellent current of injury, impedance, thresholds, and sensing with an LVAT of 54 ms and V1-V6 interpeak time of 51ms. The sheath was then slit without dislodging the lead and the introducer sheath was slit and removed. After an adequate amount of slack was given to the lead, the suture sleeve was tied down to muscle using 2-0silk. The pocket was then copiously irrigated with saline solution. Once the pocket was confirmed to be hemostatic, the lead was connected to the device and the device was carefully placed into the pocket with care to ensure that the lead was beneath the device. The electrical parameters of the leads were once again checked and found to be satisfactory. The pocket was then closed in three layers using absorbable suture with excellent apposition of wound edges and no evidence of skin tension or bulging knots. Steristrips were applied. An Aquacel dressing was applied over the incision. The patient tolerated the procedure well and I was present for, and directed all parts of the procedure. CONCLUSION: > Successful single chamber pacemaker with left bundle area pacing (LVAT 54ms, V1-V6 peak to peak 51 ms) PLAN: -- no heparin, lovenox, or DOAC for 96 hours -- STAT post-op CXR (2 view) -- left arm restrictions x 4 weeks -- obtain post-op ECG -- continuous telemetry -- discharge today if interrogation/CXR satisfactoryArbour-HRI HospitalXR CHEST 2V FRONTAL/LATon [id number] CHEST 2V FRONTAL/LAT* * *Final Report* * * DATE OF EXAM: Mar 12 2025 12:35PM FVX [id number] - XR CHEST 2V FRONTAL/LAT / PROCEDURE REASON: Other * * * * Physician Interpretation * * * * EXAMINATION: CHEST RADIOGRAPH (2 VIEW FRONTAL and LATERAL) CLINICAL HISTORY: Other, post op CXR after SC-PPM, eval PTX and lead position MQ: [id number] EXAM DATE/TIME: 03/12/2025 12:35 PM COMPARISON: 07/05/2021. RESULT: Lines, tubes, and devices: Multiple median sternotomy wires, heart valves and atrial appendage clip. The left chest wall cardiac pacemaker lead terminates in the right ventricle. Lungs and pleura: No consolidation. No lung mass. No pleural effusion. No pneumothorax. Cardiomediastinal silhouette: Mild cardiomegaly. Bones and soft tissues: Degenerative changes are present within the thoracic spine. IMPRESSION: No pneumothorax. Mild cardiomegaly without evidence of congestive heart failure. Can Slider: ETHAN Transcribe Date/Time: Mar 12 2025 1:09P Dictated by : BETY ISAACS MD This examination was interpreted and the report reviewed and electronically signed by: BETY ISAACS MD on Mar 12 2025 1:11PM EST [id number] Massachusetts HospitalPNon [id number] (TALIB) BRITTA TORRES ([id number]) 1945 M Date Time Provider Department 03/05/25 DARA HINES During your visit today, we recorded the following information about you: Selena Salazar 03/05/2025 3:28 PM Signed ----- Message from Brandy Mckeon APRN.DJ INSTRUCTOR sent at 03/05/2025 2:41 PM EDT ----- Regarding: Add on case EPS Lab Request: Device Patient: Britta Torres Requested by: Brandy Mckeon APRN.DJ INSTRUCTOR Requesting Physician: Dr. Bagley/ Mike Procedure Physician: Dr. Devon hines Procedure Requested: PPM implant CPT: 71826-sfrsmd chamber Date of Last HANDP? 03/04/2025 Indications / Dx for Procedure: Bradycardia Procedure Time Frame: Other Next week Estimated length of case: 2 HOURS Device Company: [employer] Patient: No Type of Bed: OVERNIGHT Medication to be stopped(please specify medication/timeframe): Yes, Eliquis 2 days prior ## ECHO also needs to be done prior to procedure which is ordered ## (Devon, don't know if anyone has shown you the procedure request dot phrases? They have to be sent to the procedure schedulers ([facility] CARD PROCEDURE) for cases to get scheduled. Just an FYI, figured no one showed/told you :) Selena Salazar 03/05/2025 3:29 PM Signed Called and spoke to patient and scheduled his implant at [facility] with Dr Hines. 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 He will start Holding his Eliquis on Saturday. Follow up scheduled. Allergies As of Date: 03/05/2025 Noted Allergy Reaction DECONAMINE (CHLORPHENIRAMINE-PSEU*07/20/2013 16 - Unknown NIASPAN (NIACIN) 07/20/2013 16 - Unknown PSEUDOEPHEDRINE 12/26/2022 16 - Unknown Comments: Other Reaction(s): Urinary Retention SULFAMETHOXAZOLE-TRIMETHOPRIM 07/20/2013 16 - Unknown Date Reviewed: 03/04/2025 Reviewed by: Grazyna Wilkerson, RN - Fully Assessed Prescriptions as of 03/05/2025 - apixaban (ELIQUIS) 5 mg tab(s) Take 1 tablet by mouth two times a day. - bisoprolol (ZEBETA) 10 mg tablet Take 1 tablet by mouth two times a day. - rosuvastatin (CRESTOR) 10 mg tablet Take 1 tablet by mouth once daily. - cholecalciferol, vitamin D3, (VITAMIN D3 ORAL) Take by mouth. - aspirin, enteric coated (ADULT LOW DOSE [...] ORAL) Take by mouth once daily. - [place]-3 Fatty Acids-Vitamin E 1,000 mg cap Take 1 capsule by mouth twice daily. Problem List As Of Date 03/05/2025 Noted Resolved Chronic a-fib (HCC) [I48.20] 05/18/2013 [...] S/P AVR [Z95.2] 10/09/2024 Encounter Status:Closed by SELENA SALAZAR on 03/05/25[facility] [id number] Visit (CAEPAV) BRITTA TORRES ([id number]) 1945 M Date Time Provider Department 03/04/25 4:00 PM BRANDY MCKEON During your visit today, we recorded the following information about you: Pulse Blood pressure Weight 71/minute 146/80 79.5 kg Brandy Mckeon APRN.DJ INSTRUCTOR 03/04/2025 4:50 PM Signed [facility] [place] [facility] Department of Cardiovascular Medicine SECTION OF ELECTROPHYSIOLOGY AND PACING OUTPATIENT VISIT DATE March 04, 2025 OUTPATIENT VISIT TYPE ESTABLISHED PRIMARY CARE PHYSICIAN: Austen Ontiveros MD [address] [place] [address] CHIEF COMPLAINT: Follow Up HISTORY OF PRESENT ILLNESS: Mr. Torres is a 79 year old male, patient of Dr. Bagley and Dr. Goldberg who presents today for a cardiovascular medicine follow-up visit regarding permanent atrial fibrillation and recurrent syncopal events. He states that he had his first syncopal event ~5 months ago during which time he quickly donna from the couch to take the trash to the curb. He became dizzy and lost consciousness. Next episode occurred approximately 4-6 weeks ago- was standing outside talking to a neighbor- became lightheaded and lost consciousness falling backwards. Upon regaining consciousness, he was confused for a short while, but then returned to baseline. He reports the most recent episode occurring ~10 days ago. Was standing at the kitchen sink washing dishes- became very dizzy and lost consciousness falling backwards waking up on the floor. He has no other symptoms outside of a brief periods of dizziness. ZIO monitor demonstrated permanent atrial fibrillation average ventricular rate of 81 and one 3.3 second pause in the morning when he was awake. PMH: Permanent atrial fibrillation, CAD s/p CABG x3 (PECK/LAD, SVG/PDA, left radial to OM1) with TVr, AVR (edward inspiris valve) and RAKEL clip and cryo maze--06/2021--[place], hypertension, dyslipidemia PAST MEDICAL HISTORY Diagnosis Date A-fib ([facility]) 2005 Loaded with Dofetilide 07/19/13 (self converted to sinus rhythm after first dose) Coronary artery disease involving [place] coronary artery of [place] heart with angina pectoris ([facility]) 06/2021 s/p CABG x3, PECK to [...] ECHO) 07/08/2006 TONSILLECTOMY AND ADENOIDECTOMY SOCIAL HISTORY SOCIAL HISTORY[1] FAMILY HISTORY Problem Relation Age of Onset Cancer Father Stroke Mother Coronary Artery Disease Sister GI Sister Hypertension Sister Stroke Paternal Grandmother No Ocular Disease Other ALLERGIES Allergen Reactions Deconamine [Chlorph* Unknown Niaspan [...] VITAMIN ORAL) Take by mouth once daily. [place]-3 Fatty Acids-Vitamin E 1,000 mg cap Take 1 capsule by mouth twice daily. REVIEW OF SYSTEMS: ROS is otherwise negative apart from what has been documented in HPI PHYSICAL EXAMINATION: BP 146/80 (BP Site: Left Arm, BP Position: Sitting, BP Cuff Size: Regular Adult) Pulse 71 Wt 79.5 kg (175 lb 4.3 oz) BMI 23.12 kg/m? General: Well appearing, in no acute distress, speaking in complete sentences. Skin: No clubbing, no cyanosis. Neck: No jugular venous distention, no carotid bruits (more content not included)...NormalDun[facility] 12 leadon [id number] Rate : 71 BPM QRS Duration : 144 ms Q-T Interval : 468 ms QTC Calculation(Bazett) : 508 ms Calculated R Jefferson : -29 degrees Calculated T Jefferson : 88 degrees ATRIAL FIBRILLATION WITH A COMPETING JUNCTIONAL PACEMAKER COMPLETE RIGHT BUNDLE BRANCH BLOCK ABNORMAL ECG Confirmed by OTILIO CHENEY M.D. ([id number]) on 03/04/2025 4:55:51 PM NAME : BRITTA TORRES PID : [id number] : 1945 Gender : Male Race : ORD : [id number] Procedure Date : Mar 04 2025 15:37:27 Edit Date : Mar 04 2025 16:55:54 Diagnosis: ATRIAL FIBRILLATION WITH A COMPETING JUNCTIONAL PACEMAKER COMPLETE RIGHT BUNDLE BRANCH BLOCK ABNORMAL ECG Confirmed by OTILIO CHENEY M.D. ([id number]) on 03/04/2025 4:55:51 PM Test Reason : I48.21 Permanent atrial fibrillation (HCC) Location : 192 : AVCRD Overread By : OTILIO CHENEY M.D. Edited By : OTILIO CHENEY M.D. Referred By : , Acquired by : ,CCFRadiology, Radiologist, - 03/04/2025 Ventricular Rate : 71 BPM QRS Duration : 144 ms Q-T Interval : 468 ms QTC Calculation(Bazett) : 508 ms Calculated R Jefferson : -29 degrees Calculated T Jefferson : 88 degrees ATRIAL FIBRILLATION WITH A COMPETING JUNCTIONAL PACEMAKER COMPLETE RIGHT BUNDLE BRANCH BLOCK ABNORMAL ECG Confirmed by OTILIO CHENEY M.D. ([id number]) on 03/04/2025 4:55:51 PM NAME : BRITTA TORRES PID : [id number] : 1945 Gender : Male Race : ORD : [id number] Procedure Date : Mar 04 2025 15:37:27 Edit Date : Mar 04 2025 16:55:54 Diagnosis: ATRIAL FIBRILLATION WITH A COMPETING JUNCTIONAL PACEMAKER COMPLETE RIGHT BUNDLE BRANCH BLOCK ABNORMAL ECG Confirmed by OTILIO CHENEY M.D. ([id number]) on 03/04/2025 4:55:51 PM Test Reason : I48.21 Permanent atrial fibrillation (HCC) Location : 192 : AVCRD Overread By : OTILIO CHENEY M.D. Edited By : OTILIO CHENEY M.D. Referred By : , Acquired by : , [facility] COMPLETEon [id number] R Jefferson-29degreesCleveland ClinicCalculated T Czlo45fywckznFowheptnz ClinicQRS Vxllnndb077 msCleveland ClinicQT Sdpkqsox507 msCleveland ClinicQTC Calculation (Bazett)508 msCleveland ClinicVentricular Plld90RFFYknqnngsp ClinicATRIAL FIBRILLATION WITH A COMPETING JUNCTIONAL PACEMAKER COMPLETE RIGHT BUNDLE BRANCH BLOCK ABNORMAL ECG Confirmed by OTILIO CHENEY M.D. ([id number]) on 03/04/2025 4:55:51 PMHEART AND VASCULAR INSTITUTENAME : BRITTA TORRES PID : [id number] : 1945 Gender : Male Race : ORD : [id number] Procedure Date : Mar 04 2025 15:37:27 Edit Date : Mar 04 2025 16:55:54 Diagnosis: ATRIAL FIBRILLATION WITH A COMPETING JUNCTIONAL PACEMAKER COMPLETE RIGHT BUNDLE BRANCH BLOCK ABNORMAL ECG Confirmed by OTILIO CHENEY M.D. ([id number]) on 03/04/2025 4:55:51 PM Test Reason : I48.21 Permanent atrial fibrillation (HCC) Location : 192 : AVCRD Overread By : OTILIO CHENEY M.D. Edited By : OTILIO CHENEY M.D. Referred By : , Acquired by : ,[facility] INSTITUTEEC COMPLETEVentricular Rate : 71 BPM QRS Duration : 144 ms Q-T Interval : 468 ms QTC Calculation(Bazett) : 508 ms Calculated R Jefferson : -29 degrees Calculated T Jefferson : 88 degrees ATRIAL FIBRILLATION WITH A COMPETING JUNCTIONAL PACEMAKER COMPLETE RIGHT BUNDLE BRANCH BLOCK ABNORMAL ECG Confirmed by OTILIO CHENEY M.D. ([id number]) on 03/04/2025 4:55:51 PM NAME : BRITTA TORRES PID : [id number] : 1945 Gender : Male Race : ORD : [id number] Procedure Date : Mar 04 2025 15:37:27 Edit Date : Mar 04 2025 16:55:54 Diagnosis: ATRIAL FIBRILLATION WITH A COMPETING JUNCTIONAL PACEMAKER COMPLETE RIGHT BUNDLE BRANCH BLOCK ABNORMAL ECG Confirmed by OTILIO CHENEY M.D. ([id number]) on 03/04/2025 4:55:51 PM Test Reason : I48.21 Permanent atrial fibrillation (HCC) Location : 192 : AVCRD Overread By : OTILIO CHENEY M.D. Edited By : OTILIO CHENEY M.D. Referred By : , Acquired by : ,[facility] Panel InformationOrdered By: Radiologist Radiology on 19-57-9242[facility] Work Phone: all LIPID PROFILE (FASTING)on 11-20-8039KMIY HDL RATIO 2.3NOMS HealthcareComment on above:3.3 - 4.4 LOW RISK 4.4 - 7.1 AVERAGE RISK 7.1 - 11.0 MODERATE RISK >11.0 HIGH RISK Cholesterol [Mass/Vol]137 mg/dLNINF - 200 mg/dLNOMS HealthcareCholesterol in HDL [Mass/Vol]59 mg/dL40 - 60 mg/dLNOMS HealthcareComment on above:> or =60 mg/dl - LOW CARDIOVASCULAR RISK <40 mg/dl - HIGH CARDIOVASCULAR RISK Magnesium [Mass/Vol]70.2 mg/dLNOMS HealthcareComment on above:<100 mg/dl OPTIMAL 100-129 mg/dl NEAR OR ABOVE OPTIMAL 130-159 mg/dl BORDERLINE HIGH 160-189 mg/dl HIGH >190 mg/dl VERY HIGH Magnesium [Mass/Vol]7.8 mg/dLNOMS HealthcareTriglyceride [Mass/Vol]39 mg/dLNINF - 150 mg/dLNOMS HealthcareCLINISYNCNOMS HealthcareECG 12 leadon 01-06-2025 Ventricular Rate : 80 BPM Atrial Rate : 178 BPM QRS Duration : 150 ms Q-T Interval : 440 ms QTC Calculation(Bazett) : 507 ms Calculated R Jefferson : 62 degrees Calculated T Jefferson : 78 degrees UNDETERMINED RHYTHM COMPLETE RIGHT BUNDLE BRANCH BLOCK ABNORMAL ECG Confirmed by MONIKA GALLEGOS MD ([id number]) on 01/06/2025 3:58:22 PM NAME : BRITTA TORRES PID : [id number] : 1945 Gender : Male Race : ORD : [id number] Procedure Date : Jan 05 2025 07:57:27 Edit Date : Jan 06 2025 16:01:05 Diagnosis: UNDETERMINED RHYTHM COMPLETE RIGHT BUNDLE BRANCH BLOCK ABNORMAL ECG Confirmed by MONIKA GALLEGOS MD ([id number]) on 01/06/2025 3:58:22 PM Test Reason : I48.20 Chronic a-fib (HCC) Location : 192 : AVCRD Overread By : MONIKA GALLEGOS MD Edited By : MONIKA GALLEGOS MD Referred By : , Acquired by : ,CCFRadiology, MD Angie - 01/06/2025 Ventricular Rate : 80 BPM Atrial Rate : 178 BPM QRS Duration : 150 ms Q-T Interval : 440 ms QTC Calculation(Bazett) : 507 ms Calculated R Jefferson : 62 degrees Calculated T Jefferson : 78 degrees UNDETERMINED RHYTHM COMPLETE RIGHT BUNDLE BRANCH BLOCK ABNORMAL ECG Confirmed by MONIKA GALLEGOS MD ([id number]) on 01/06/2025 3:58:22 PM NAME : BRITTA TORRES PID : [id number] : 1945 Gender : Male Race : ORD : [id number] Procedure Date : Jan 05 2025 07:57:27 Edit Date : Jan 06 2025 16:01:05 Diagnosis: UNDETERMINED RHYTHM COMPLETE RIGHT BUNDLE BRANCH BLOCK ABNORMAL ECG Confirmed by MONIKA GALLEGOS MD ([id number]) on 01/06/2025 3:58:22 PM Test Reason : I48.20 Chronic a-fib (HCC) Location : 192 : AVCRD Overread By : MONIKA GALLEGOS MD Edited By : MONIKA GALLEGOS MD Referred By : , Acquired by : , PATRICIA [facility] 12 leadOrdered By: Radiologist Radiology on 44-80-3371NVAA [employer] Work Phone: cNOVon [phone] Visit (TALIB) BRITTA TORRES ([id number]) 1945 M Date Time Provider Department 01/05/25 8:00 AM PATRICIA ARCHER During your visit today, we recorded the following information about you: Pulse Blood pressure Weight 80/minute 128/72 76.8 kg Patricia Archer 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 Torres is a 79 year old male patient of Dr. Goldberg and Dr. Bagley [facility] permanent atrial fibrillation, CAD (: s/p CABG x3, PECK to LAD, SVG to PDA, left radial artery to the obtuse marginal 1, TV repair with a ring, AVR with annieward inspiris valve, left atrial appendage clip, cryo maze), hypertension, hyperlipidemia, residential anticoagulation, anemia who presents today for a [...] syncope PAST MEDICAL HISTORY Diagnosis Date A-fib ([facility]) 2005 Loaded with Dofetilide 07/19/13 (self converted to sinus rhythm after first dose) Coronary artery disease involving [place] coronary artery of [place] heart with angina pectoris ([facility]) 06/2021 s/p CABG x3, PECK to [...] VITAMIN ORAL) Take by mouth once daily. [place]-3 Fatty Acids-Vitamin E 1,000 mg cap Take [...] Flutter occurred con (more content not included)... [facility] CenterEC COMPLETEon 31-53-1110CCK COMPLETEVentricular Rate : 80 BPM Atrial Rate : 178 BPM QRS Duration : 150 ms Q-T Interval : 440 ms QTC Calculation(Bazett) : 507 ms Calculated R Jefferson : 62 degrees Calculated T Jefferson : 78 degrees UNDETERMINED RHYTHM COMPLETE RIGHT BUNDLE BRANCH BLOCK ABNORMAL ECG Confirmed by MONIKA GALLEGOS MD ([id number]) on 01/06/2025 3:58:22 PM NAME : BRITTA TORRES PID : [id number] : 1945 Gender : Male Race : ORD : [id number] Procedure Date : Jan 05 2025 07:57:27 Edit Date : Jan 06 2025 16:01:05 Diagnosis: UNDETERMINED RHYTHM COMPLETE RIGHT BUNDLE BRANCH BLOCK ABNORMAL ECG Confirmed by MONIKA GALLEGOS MD ([id number]) on 01/06/2025 3:58:22 PM Test Reason : I48.20 Chronic a-fib (HCC) Location : 192 : AVCRD Overread By : MONIKA GALLEGOS MD Edited By : MONIKA GALLEGOS MD Referred By : , Acquired by : ,[facility]Nik 35-78-2927IKPNOxlswq Visit (CARDAV) BRITTA TORRES ([id number]) 1945 M Date Time Provider Department 11/27/24 8:30 AM [facility] During your visit today, we recorded the following information about you: Ana Jaramillo RN 11/27/2024 8:43 AM Signed EVENT MONITOR DISPOSABLE PATCH INSTRUCTIONS Patient Name: Britta Torres Clinic Number: [id number] Skin prepped and cleansed with alcohol Patch secured to prepped area Monitor Activated Serial #: [id number] Patient Instructed: Prescribed order timeframe Bathing guidelines Usage of event button and diary documentation Return of monitor at the end of prescribed order Call with problems [phone] or [phone]. [phone] Patient expresses a good understanding of instructions Ana Jaramillo RN [id number] Allergies As of Date: 11/27/2024 Noted Allergy Reaction DECONAMINE (CHLORPHENIRAMINE-PSEU*07/20/2013 16 - Unknown NIASPAN (NIACIN) 07/20/2013 16 - Unknown PSEUDOEPHEDRINE 12/26/2022 16 - Unknown Comments: Other Reaction(s): Urinary Retention SULFAMETHOXAZOLE-TRIMETHOPRIM 07/20/2013 16 - Unknown Date Reviewed: 10/09/2024 [...] ORAL) Take by mouth once daily. - [place]-3 Fatty Acids-Vitamin E 1,000 mg cap Take [...] 10/09/2024 Encounter Status:Closed by ANA JARAMILLO on 11/27/24[facility] HospitalPNon 24-47-5738GATRMbbkvfkhc (CARDAV) BRIANBRITTA ([id number]) 1945 M Date Time Provider Department 11/04/24 [...] 1.5 tablets per day preventatively. Patient phone: [phone] Pharmacy: [facility] GO TO THE EMERGENCY ROOM OR CALL 911 IF: * You develop any new symptoms * Your condition worsens * You are concerned or anxious about your condition for any other reason. If you have any questions, call back. Agnes Reina, PRISCA 11/04/2024 3:52 PM Signed Spoke with patient. [...] with MAYANK Ladarius Beatty on 12/07 in [place]. Leslee Forman RN 11/16/2024 2:05 PM Signed Patient calling office asking why he hasn't received his ZIO patch monitor ordered on 11/04/2024. Please call patient with an update. Allergies As of Date: 11/04/2024 Noted Allergy Reaction DECONAMINE (CHLORPHENIRAMINE-PSEU*07/20/2013 16 - Unknown NIASPAN (NIACIN) 07/20/2013 16 - Unknown PSEUDOEPHEDRINE 12/26/2022 16 - Unknown Comments: Other Reaction(s): Urinary Retention SULFAMETHOXAZOLE-TRIMETHOPRIM 07/20/2013 16 - Unknown Date Reviewed: 10/09/2024 Reviewed by: Meche Oleary OCCA - Fully Assessed Reason for Visit: syncopal episode [Other] Primary Visit Diagnosis:Heat syncope, initial encounter [T67.1XXA] Other Visit Diagnosis:Coronary artery disease involving coronary bypass graft of [place] heart without angina pectoris [I25.810] Order(s):OUTSIDE VENDOR CARDIAC OUTPATIENT EXTENDED RHYTHM RECORDING (WITHOUT TELEMETRY) [0049319] Order #: [id number]: 1 Prescriptions as of 11/16/2024 - cholecalciferol, [...] ORAL) Take by mouth once daily. - [place]-3 Fatty Acids-Vitamin E 1,000 mg cap Take [...] 06/07/2023 Iron deficiency anemia (more content not included)...NormalUk HealthcareECG01on 85-39-8467Hrjxwyfrskt Rate : 83 BPM Atrial Rate : 83 BPM P-R Interval : 288 ms QRS Duration : 148 ms Q-T Interval : 428 ms QTC Calculation(Bazett) : 502 ms Calculated P Jefferson : 94 degrees Calculated R Jefferson : 42 degrees Calculated T Jefferson : 80 degrees SINUS RHYTHM WITH 1ST DEGREE AV BLOCK WITH PREMATURE ATRIAL COMPLEXES COMPLETE RIGHT BUNDLE BRANCH BLOCK ABNORMAL ECG Confirmed by MD BUCK ANISH ([id number]) on 10/11/2024 6:23:45 PM NAME : BRITTA TORRES PID : [id number] : 1945 Gender : Male Race : ORD : Procedure Date : Oct 09 2024 10:04:02 Edit Date : Oct 11 2024 18:23:46 Diagnosis: SINUS RHYTHM WITH 1ST DEGREE AV BLOCK WITH PREMATURE ATRIAL COMPLEXES COMPLETE RIGHT BUNDLE BRANCH BLOCK ABNORMAL ECG Confirmed by MD BUCK ANISH ([id number]) on 10/11/2024 6:23:45 PM Test Reason : Location : 192 : AVCRD Overread By : MD BUCK ANISH Edited By : MD BUCK ANISH Referred By : , Acquired by : ,CCFRadiology, RadiologistMD - 10/11/2024 Ventricular Rate : 83 BPM Atrial Rate : 83 BPM P-R Interval : 288 ms QRS Duration : 148 ms Q-T Interval : 428 ms QTC Calculation(Bazett) : 502 ms Calculated P Jefferson : 94 degrees Calculated R Jefferson : 42 degrees Calculated T Jefferson : 80 degrees SINUS RHYTHM WITH 1ST DEGREE AV BLOCK WITH PREMATURE ATRIAL COMPLEXES COMPLETE RIGHT BUNDLE BRANCH BLOCK ABNORMAL ECG Confirmed by MD BUCK ANISH ([id number]) on 10/11/2024 6:23:45 PM NAME : BRITTA TORRES PID : [id number] : 1945 Gender : Male Race : ORD : Procedure Date : Oct 09 2024 10:04:02 Edit Date : Oct 11 2024 18:23:46 Diagnosis: SINUS RHYTHM WITH 1ST DEGREE AV BLOCK WITH PREMATURE ATRIAL COMPLEXES COMPLETE RIGHT BUNDLE BRANCH BLOCK ABNORMAL ECG Confirmed by MD BUCK ANISH ([id number]) on 10/11/2024 6:23:45 PM Test Reason : Location : 192 : AVCRD Overread By : MD BUCK ANISH Edited By : MD BUCK ANISH Referred By : , Acquired by : , PATRICIA VvmwomebgfOHY61Fppaovy By: Radiologist Radiology on 88-01-4041TAFJ [employer] Work Phone: cNOVon [phone] Visit (CARDAV) BRITTA TORRES ([id number]) 1945 M Date Time Provider Department 10/09/24 10:00 AM EVRE GOLDBERG During your visit today, we recorded [...] artery disease involving coronary bypass graft of [place] heart without angina pectoris (I25.810) Clinically stable, [...] low-sodium diet. - Continue current management. 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 (Z79.01) On Eliquis [...] Take by mouth once (more content not included)...[facility] CenterECG01on 40-33-1197REG52 Ventricular Rate : 83 BPM Atrial Rate : 83 BPM P-R Interval : 288 ms QRS Duration : 148 ms Q-T Interval : 428 ms QTC Calculation(Bazett) : 502 ms Calculated P Jefferson : 94 degrees Calculated R Jefferson : 42 degrees Calculated T Jefferson : 80 degrees SINUS RHYTHM WITH 1ST DEGREE AV BLOCK WITH PREMATURE ATRIAL COMPLEXES COMPLETE RIGHT BUNDLE BRANCH BLOCK ABNORMAL ECG Confirmed by MD BUCK ANISH ([id number]) on 10/11/2024 6:23:45 PM NAME : BRITTA TORRES PID : [id number] : 1945 Gender : Male Race : ORD : Procedure Date : Oct 09 2024 10:04:02 Edit Date : Oct 11 2024 18:23:46 Diagnosis: SINUS RHYTHM WITH 1ST DEGREE AV BLOCK WITH PREMATURE ATRIAL COMPLEXES COMPLETE RIGHT BUNDLE BRANCH BLOCK ABNORMAL ECG Confirmed by MD BUCK ANISH ([id number]) on 10/11/2024 6:23:45 PM Test Reason : Location : 192 : AVCRD Overread By : MD BUCK ANISH Edited By : MD BUCK ANISH Referred By : , Acquired by : ,[facility] CenterRadiology Study observation (narrative)PATRICIA Long 07-29-2024L Specimen: [id number] Received: 07/29/24 Status: VIVEK Henley Num: [id number] Spec Type: Surgical Subm Dr: Walker Edge MD Tissues: A Skin-Other than Cyst, tag, debridement or plastic repair (RT LEG) Procedures: ESTHER, Gross/Micro L4 Age/ Patient Sex Location Account Attending Physician Britta Torres/Jojo NE [id number] Walker Edge MD SPEC NUM: [id number] RECD: 07/29/24 STATUS: VIVEK HENLEY NUM: [id number] OLESYA: 07/29/[address] [facility] [address]: Walker Edge MD ENTERED: 07/29/[address] [facility] [address]: JEREMIAH TYPE: Surgical DEPT: S ENTERED BY: [id number] RECV BY: [id number] ORDERED: PATRICK/Cadence, Gross/Micro L4 ORDERED: HE2, Gross/Micro L4 Pathological Diagnosis Skin lesion, right [...] the specimen submitted in A2. (2, ns, [id number] A) CPT Codes 84368 Specimen: [id number] Received: 07/29/24 Status: VIVEK Henley Num: [id number] Spec Type: Surgical Subm Dr: Walker Edge MD Tissues: A Skin-Other than Cyst, tag, debridement or plastic repair (RT LEG) Procedures: HE/2, Gross/Micro L4 Patient: Britta Torres [id number] (Continued) Signed (signature on file) Cira Kaye MD 07/30/[address] [place] [address] Physician GroupLaboratory - Cytologyon 57-57-6501Mthgbuztivp Cyto stain Nom (Cvx/Vag) [ID]NOMS HealthcareComment on above:Ishaan Peña MD Board certified in Dermatopathology and Anatomic Pathology (electronic signature). For questions regarding this report call [facility] at [phone]. Laboratory - Specimen informationon [id number] source Nom (Unsp spec) LOWER CALFNOMS HealthcareSpecimen source Nom (Unsp spec)UPPER CALFNOMS HealthcareNo Panel Informationon 07-20-2024 CLINICAL IMPRESSIONCANCELEDNOMS HealthcareComment on above:Result canceled by the ancillary.B CLINICAL IMPRESSIONCANCELEDNOMS HealthcareComment on above:Result canceled by the ancillary.Clinical informationVial 1 - 4 mm; Vial 2 - 4 mmNOShriners Hospitals for Children Pathology report comments [Interpretation] NarrativeCANCELEDNOShriners Hospitals for Children Comment on above:Result canceled by the ancillary.Pathology report final diagnosis NarrativeIRRITATED HYPERPLASTIC ACTINIC KERATOSISNOShriners Hospitals for Children Pathology report gross observation NarrativeNOMS HealthcareComment on above: Received in 10% neutral buffered formalin is a biopsy of tissue measuring 5 x 5 x 2 mm. It was bisected and submitted into 1 tissue block. Received in 10% neutral buffered formalin is a biopsy of tissue measuring 5 x 4 x 2 mm. It was bisected and submitted into 1 tissue block. This gross description meets regulatory standards for positive identification using two patient identifiers. /amk/is Pathology report microscopic observation Narrative Other stainNOShriners Hospitals for Children Comment on above:Portions of the epidermis display variable acanthosis with cytologic atypia and maturation disarray. Proliferative buds of atypical epithelium originate from the basal layer and extend into an elastotic dermis. There is associated hypogranulosis and overlying parakeratosis. Portions of the epidermis display variable acanthosis with cytologic atypia and maturation disarray. Proliferative buds of atypical epithelium originate from the basal layer and extend into an elastotic dermis. There is associated hypogranulosis and overlying parakeratosis. /cat Procedure typePUNCHNOKY HealthcareReport typeCANCELEDNOKY HealthcareComment on above:Result canceled by the ancillary.FASTING:UNKNOWN FASTING: UNKNOWNQUESTPerforming Organization Information Site ID: [id number] Name: K[place]ha [place], -[facility] Address: [address] [place] [address], [place] [address] Director: Veronica Gibbs MDAtrium Health Wake Forest Baptist Wilkes Medical CenterTISSUE PATHOLOGYon 03-45-6493HETWDQIN INFORMATIONNormalQuest DiagnosticsComment on above:Order Comment: FASTING:UNKNOWN FASTING: UNKNOWNResult Comment: Vial 1 - 4 mm; Vial 2 - 4 mmPerformed By: #### 3542 #### [facility] [address], [address] Eligibility Consultant: Veronica Gibbs MDPathologist Cyto stain Nom (Cvx/Vag) [ID] NormalQuest DiagnosticsComment on above:Order Comment: FASTING:UNKNOWN FASTING: UNKNOWNResult Comment: Ishaan Peña MD Board certified in Dermatopathology and Anatomic Pathology (electronic signature). For questions regarding this report call [facility] at [phone].Performed By: #### 3542 #### [facility] [address], [address] [address] Eligibility Consultant: Veronica ESTEVEZ, SPECIMENSon 07-20-2024 DIAGNOSIS NormalQuest DiagnosticsComment on above:Result Comment: IRRITATED HYPERPLASTIC ACTINIC KERATOSISPerformed By: #### 3542 #### [facility] [address], [place] [id number] Eligibility Consultant: Veronica Gibbs MDA GROSS DESCRIPTIONNormalQuest Diagnostics Comment on above:Result Comment: Received in 10% neutral buffered formalin is a biopsy of tissue measuring 5 x 5 x 2 mm. It was bisected and submitted into 1 tissue block.Performed By: #### 3542 #### [facility] [place], -[facility] [address], [address] [place], [place] [id number] Eligibility Consultant: Veronica Gibbs MDA MICRO DESCRIPTIONNormalQuest Diagnostics Comment on above:Result Comment: Portions of the epidermis display variable acanthosis with cytologic atypia and maturation disarray. Proliferative buds of atypical epithelium originate from the basal layer and extend into an elastotic dermis. There is associated hypogranulosis and overlying parakeratosis.Performed By: #### 3542 #### [facility] [place], -[facility] [address], [address] [place], [place] [address] Eligibility Consultant: Veronica Gibbs MDA PROCEDUREPUNCHNormalQuest Diagnostics Comment on above:Performed By: #### 3542 #### AmKendell [place], -[facility] [address], [place] [address] Eligibility Consultant: Veronica Gibbs MDA SOURCENormalQuest DiagnosticsComment on above:Result Comment: LOWER CALFPerformed By: #### 3542 #### [facility] [place], -[facility] [address], [place] [address] Eligibility Consultant: Veronica Gibbs MDB DIAGNOSISNormalQuest DiagnosticsComment on above:Result Comment: IRRITATED HYPERPLASTIC ACTINIC KERATOSISPerformed By: #### 3542 #### [facility] [place], [facility] [address], [address] Eligibility Consultant: Veronica Gibbs MDB GROSS DESCRIPTIONNormalQuest Diagnostics Comment on above:Result Comment: Received in 10% neutral buffered formalin is a biopsy of tissue measuring 5 x 4 x 2 mm. It was bisected and submitted into 1 tissue block. This gross description meets regulatory standards for positive identification using two patient identifiers. /amk/isPerformed By: #### 3542 #### [facility] [place], [facility] [address], [place] [address] Eligibility Consultant: Veronica Gibbs MDB MICRO DESCRIPTIONNormalQuest Diagnostics Comment on above:Result Comment: Portions of the epidermis display variable acanthosis with cytologic atypia and maturation disarray. Proliferative buds of atypical epithelium originate from the basal layer and extend into an elastotic dermis. There is associated hypogranulosis and overlying parakeratosis. /catPerformed By: #### 3542 #### [facility] [place], -[facility] [address], [place] [address] Eligibility Consultant: Veronica Gibbs MDB PROCEDUREPUNCHNormalQuest Diagnostics Comment on above:Performed By: #### 3542 #### K[facility]ha [place], -[facility] [address], [place] [address] Eligibility Consultant: Veronica Gibbs MDB SOURCENormalQuest DiagnosticsComment on above:Result Comment: UPPER CALFPerformed By: #### 3542 #### [facility] HospitalDerm[facility] [address], [place] [address] Eligibility Consultant: Veronica Gibbs [facility] [id number] (TALIB) BRITTA TORRES ([id number]) 1945 M Date Time Provider Department 06/18/24 AGNES REINA During your visit today, we recorded the following information about you: Agnes Reina RN 06/18/2024 4:40 PM Signed Information faxed to [facility] Allergies As of Date: 06/18/2024 Noted Allergy Reaction DECONAMINE (CHLORPHENIRAMINE-PSEU*07/20/2013 16 - Unknown NIASPAN (NIACIN) 07/20/2013 16 - Unknown PSEUDOEPHEDRINE 12/26/2022 16 - Unknown Comments: Other Reaction(s): Urinary Retention SULFAMETHOXAZOLE-TRIMETHOPRIM 07/20/2013 16 - Unknown Date Reviewed: 06/15/2024 Reviewed by: Torri Hill RN - Fully Assessed Prescriptions as of 06/18/2024 [...] ORAL) Take by mouth once daily. - [place]-3 Fatty Acids-Vitamin E 1,000 mg cap Take [...] regurgitation [I07.1] 05/29/2021 Coronary artery disease involving [place] meredith*05/29/2021 History of cardioversion [Z92.89] 05/29/2021 Hyperlipidemia [...] 06/13/2022 Encounter Status:Closed by AGNES REINA on 06/18/24[facility] [id number] Visit (CAEPAV) BRITTA TORRES ([id number]) 1945 M Date Time Provider Department 06/15/24 12:20 PM DHARMESH BAGLEY CAIPOTRAV During your visit today, we recorded the [...] of Date: 06/15/2024 Noted Allergy Reaction DECONAMINE (CHLORPHENIRAMINE-PSEU*07/20/2013 16 - Unknown NIASPAN (NIACIN) 07/20/2013 16 - Unknown PSEUDOEPHEDRINE 12/26/2022 16 - Unknown Comments: Other Reaction(s): Urinary Retention SULFAMETHOXAZOLE-TRIMETHOPRIM 07/20/2013 16 - Unknown Date Reviewed: 06/15/2024 [...] ORAL) Take by mouth once daily. - [place]-3 Fatty Acids-Vitamin E 1,000 mg cap Take [...] regurgitation [I07.1] 05/29/2021 Coronary artery disease involving [place] meredith*05/29/2021 History of cardioversion [Z92.89] 05/29/2021 Hyperlipidemia [...] 06/13/2022 Encounter Status:Closed by DHARMESH BAGLEY on 06/15/24NoMarietta Osteopathic Clinictory - Cytologyon [id number] Cyto stain Nom (Cvx/Vag) [ID]NOMS HealthcareComment on above:Ishaan Peña MD Board certified in Dermatopathology and Anatomic Pathology (electronic signature). For questions regarding this report call [facility] at [phone]. Laboratory - Specimen informationon [id number] source Nom (Unsp spec) NECKNOMS HealthcareSpecimen source Nom (Unsp spec)[facility]ST[facility] No Panel Informationon 05-01-2024 CLINICAL IMPRESSIONCANCELEDNOMS Healthcare Comment on above:Result canceled by the ancillary.B CLINICAL IMPRESSIONCANCELED NOMS HealthcareComment on above:Result canceled by the ancillary.Clinical informationCANCELEDNOMS HealthcareComment on above:Result canceled by the ancillary.Pathology report comments [Interpretation] NarrativeCANCELEDNOMS HealthcareComment on above:Result canceled by the ancillary.Pathology report final diagnosis NarrativeIRRITATED/INFLAMED SEBORRHEIC KERATOSISNOKY Healthcare Pathology report final diagnosis NarrativeWELL DIFFERENTIATED SQUAMOUS CELL CARCINOMA, KERATOACANTHOMA PATTERNNOKY HealthcarePathology report gross observation NarrativeNOMS HealthcareComment on above:Received in 10% neutral buffered formalin is a biopsy of tissue measuring 5 x 5 x 3 mm. It was bisected and submitted into 1 tissue block. Received in 10% neutral buffered formalin is a biopsy of tissue measuring 5 x 5 x 4 mm. It was bisected and submitted into 1 tissue block. This gross description meets regulatory standards for positive identification using two patient identifiers. /bjm/is Pathology report microscopic observation Narrative Other stainNOKY Healthcare Comment on above:The specimen displays variable acanthosis and papillomatosis with pseudohorncysts and overlying hyperkeratosis and parakeratosis. The acanthotic epidermis is focally spongiotic with whorled collections of keratinocytes. Within the underlying dermis, there are inflammatory infiltrates. The specimen displays the superficial portion of a keratin-filled crater with surrounding atypical, well differentiated squamous proliferation. /bjm Procedure typeBIOPSYNOMS HealthcareReport typeCANCELEDNOMS HealthcareComment on above:Result canceled by the ancillary.Performing Organization Information Site ID: [id number] Name: Kiesha Sorenson -[facility] Address: [address] [place] [address], [address] [place] [address] Director: Veronica MOONPro[facility] PATHOLOGYon [id number] Cyto stain Nom (Cvx/Vag) [ID][facility] Comment on above:Result Comment: Ishaan Peña MD Board certified in Dermatopathology and Anatomic Pathology (electronic signature). For questions regarding this report call [facility] at [phone].Performed By: #### [id number] #### [facility] [address], [place] [address] Eligibility Consultant: Veronica Gibbs MDLIVINGSTON REGIONAL HOSPITALMaria Esther, SPECIMENSon 05-01-2024 DIAGNOSIS NormalQuest DiagnosticsComment on above:Result Comment: IRRITATED/INFLAMED SEBORRHEIC KERATOSISPerformed By: #### 3542 #### [facility] [address], [place] [address] Eligibility Consultant: Veronica Gibbs MDA GROSS DESCRIPTIONNormalQuest Diagnostics Comment on above:Result Comment: Received in 10% neutral buffered formalin is a biopsy of tissue measuring 5 x 5 x 3 mm. It was bisected and submitted into 1 tissue block.Performed By: #### 3542 #### [facility] [address], [place] [address] Eligibility Consultant: Veronica Gibbs MDA MICRO DESCRIPTIONNormalQuest [facility]ostics Comment on above:Result Comment: The specimen displays variable acanthosis and papillomatosis with pseudohorncysts and overlying hyperkeratosis and parakeratosis. The acanthotic epidermis is focally spongiotic with whorled collections of keratinocytes. Within the underlying dermis, there are inflammatory infiltrates.Performed By: #### 0782 #### [facility] [place], [facility] [address], [place] [address] Eligibility Consultant: Veronica Gibbs MDA PROCEDUREBIOPSYNormalQuest Diagnostics Comment on above:Performed By: #### 6632 #### [facility] [place] [address], [address] [place] [address] Eligibility Consultant: Veronica Gibbs MDA SOURCENormalQuest DiagnosticsComment on above:Result Comment: NECKPerformed By: #### 3542 #### [facility] [place], -[facility] [address], [address] [place] [address] Eligibility Consultant: Veronica Gibbs MDB DIAGNOSISNormalQuest DiagnosticsComment on above:Result Comment: WELL DIFFERENTIATED SQUAMOUS CELL CARCINOMA, KERATOACANTHOMA PATTERNPerformed By: #### 3542 #### [facility] [address], [place] [id number] Eligibility Consultant: Veronica Gibbs MDB GROSS DESCRIPTIONNormalQuest Diagnostics Comment on above:Result Comment: Received in 10% neutral buffered formalin is a biopsy of tissue measuring 5 x 5 x 4 mm. It was bisected and submitted into 1 tissue block. This gross description meets regulatory standards for positive identification using two patient identifiers. /bjm/isPerformed By: #### 3542 #### [facility] [place], -[facility] [address], [address] Eligibility Consultant: Veronica Gibbs MDB MICRO DESCRIPTIONNormalQuest [facility] Comment on above:Result Comment: The specimen displays the superficial portion of a keratin-filled crater with surrounding atypical, well differentiated squamous proliferation. /bjmPerformed By: #### 3542 #### [facility] [place], [facility] [address], [address] [address] Eligibility Consultant: Veronica Gibbs MDB PROCEDUREBIOPSYNormalQuest [facility]ostics Comment on above:Performed By: #### 3542 #### Kiesha [place], -[facility] [address], [address] [address] Eligibility Consultant: Veronica P Bernie MDB SOURCENormalQuest DiagnosticsComment on above:Result Comment: RIGHT LOWER LEGPerformed By: #### 3542 #### [facility] [address] [facility], [address] [place] [address] Eligibility Consultant: Veronica BARRIOS LIPID PROFILE (FASTING)on 03-27-2024 CHOL HDL RATIO2.2NOMS HealthcareComment on above:3.3 - 4.4 LOW RISK 4.4 - 7.1 AVERAGE RISK 7.1 - 11.0 MODERATE RISK >11.0 HIGH RISK Cholesterol [Mass/Vol]126 mg/dLNINF - 200 mg/dLNOMS HealthcareCholesterol in HDL [Mass/Vol]56 mg/dL40 - 60 mg/dLNOMS HealthcareComment on above:> or =60 mg/dl - LOW CARDIOVASCULAR RISK <40 mg/dl - HIGH CARDIOVASCULAR RISK Magnesium [Mass/Vol]59.4 mg/dLNOKY HealthcareComment on above:<100 mg/dl OPTIMAL 100-129 mg/dl NEAR OR ABOVE OPTIMAL 130-159 mg/dl BORDERLINE HIGH 160-189 mg/dl HIGH >190 mg/dl VERY HIGH Magnesium [Mass/Vol]10.6 mg/dLNOMS HealthcareTriglyceride [Mass/Vol]53 mg/dLNINF - 150 mg/dLNOKY HealthcareCCF CMP (CMP) (FOR REMOTE CRITICAL ACCESS HOSPITAL USE)on 03-27-2024 Albumin [Mass/Vol]3.5 g/dL3.4 - 5.0 g/dLNOKY HealthcareALBUMIN GLOBULIN RATIO1.0 NOMS HealthcareALP [Catalytic activity/Vol]114 U/L46 - 116 U/LNOMS HealthcareALT [Catalytic activity/Vol]32 U/L16 - 63 U/LNOMS HealthcareAnion gap [Moles/Vol] 11.1 mmol/LNOMS HealthcareAST [Catalytic activity/Vol]34 U/L15 - 37 U/LNOMS HealthcareBilirubin [Mass/Vol]1.1 mg/dLHigh0.2 - 1.0 mg/dLNOMS HealthcareCalcium [Mass/Vol]9.1 mg/dL8.5 - 10.1 mg/dLNOMS HealthcareChloride [Moles/Vol]103 mmol/L98 - 107 mmol/LNOMS HealthcareCO2 [Moles/Vol]30.2 mmol/L21.0 - 32.0 mmol/L [facility] HealthcareCreatinine [Mass/Vol]0.89 mg/dL0.70 - 1.30 mg/dLPike County Memorial Hospital GFR/1.73 sq M.predicted CKD-EPI (S/P/Bld) [Vol rate/Area]>6060 - PINFNOKY HealthcareGlobulin (S) [Mass/Vol]3.4 g/dLNOKY HealthcareGlucose [Mass/Vol]92 mg/dL74 - 106 mg/dLPike County Memorial HospitalInterpretation and review of laboratory resultsAbnormalNOKY HealthcarePotassium [Moles/Vol]4.3 mmol/L3.5 - 5.1 mmol/L [facility] HealthcareProtein [Mass/Vol]6.9 g/dL6.4 - 8.2 g/dLST. MARK'S HOSPITAL HealthcareSodium [Moles/Vol]140 mmol/L136 - 145 mmol/LNCHOCTAW MEMORIAL H[facility]PITAL – HUGO HealthcareTBH EGFR-NON AF BOLIVIAN>60 60 - PINFST. MARK'S HOSPITAL HealthcareUrea nitrogen [Mass/Vol]23.0 mg/dLHigh7.0 - 18.0 mg/dL [facility] HealthcareUrea nitrogen/Creatinine [Mass ratio]25.8 mg/mgPike County Memorial HospitalNo Panel Informationon [id number] HealthcareECHOon 03-04-2024 Echocardiography Report: Transthoracic Echo [facility] Date of service: 03/03/2024 3:31:35 PM SCIENCE LIAISON Ordering physician: EVER GOLDBERG V Indication: Routine surveillance of moderate or severe valvular regurgitation (>1yr) Technologist: Carol BUCHANAN Interpreting physician: Otilio Cheney MD PATIENT: Name: MR. 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 Secondary rhythm: RBBB. Height: 185.40 cm BSA: 2.05 m? Weight: 82.00 kg BMI: 23.9 kg/m? Heart rate 89 bpm Blood pressure 138/55 mmHg Color Doppler was utilized to interrogate the cardiac valves assessed and spectral Doppler was utilized to determine the flow velocities and pressure gradients reported in this exam. MEASUREMENTS: Value Indexed Normal Max aortic dimension 3.6 cm Ao < 3.8 Left atrial volume 87 ml (biplane A-L) 42 ml/m? Deisy <= 34 LV ID (diastole) 4.2 cm (2D) 2.06 cm/m? LV ID (systole) 2.8 cm (2D) 1.35 cm/m? IVS, leaflet tips 1.4 cm (2D) Posterior wall thickness 1.4 cm (2D) Left ventricular mass 228 g (2D) 111 g/m? LV stroke volume 53 ml (2D biplane) LV end diastolic volume 103 ml (2D biplane) 50.1 ml/m? 34<=EDVi<75 LV end systolic volume 50 ml (2D biplane) 24.2 ml/m? Ejection Fraction 52 % (2D biplane) EF [...] decreased. RV systolic tissue Doppler velocity is 6.0cm/s. Tricuspid annular displacement is 1.0 cm. Estimated [...] posterior. There is mild (1+ - 2+) holosystolicmitral valve regurgitation. There is mild thickening. The pressure half time is 47 msec. The peak mitral E/A ratio is 6.25. The average mitral E/e' ratio is 24.6. The mitral flow deceleration time is163 msec. TRICUSPID VALVE Post tricuspid valve repair. Hernandez MC3 Tricuspid Ring size #32. There is mild (1+) tricuspid valve regurgitation. The mean tricuspid gradient is 3 mmHg. The hepatic venous pattern showed blunted systolic flow. AORTIC VALVE Inspiris prosthetic valve size #25. There is trace aortic valve regurgitation. The peak gradient is10 mmHg (peak velocity = 162.0 cm/s). The [...] There is mild concentric left ventricular hypertrophy. Leftventricular systolic function is mildly decreased. EF = 52 ? 5% (2D biplane) - The right ventricle is normal in size. Right ventricular systolic function is mildly decreased. - The left atrial cavity is moderately dilated. - The right atrial cavity is dilated. - Post tricuspid valve repair. Ed (more content not included)...CCFRadiology, Radiologist, - 03/04/2024 Echocardiography Report: Transthoracic Echo [facility] Date of service: 03/03/2024 3:31:35 PM SCIENCE LIAISON Ordering physician: EVER GOLDBERG V Indication: Routine surveillance of moderate or severe valvular regurgitation (>1yr) Technologist: Carol BUCHANAN Interpreting physician: Otilio Cheney MD PATIENT: Name: MR. 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 Secondary rhythm: RBBB. Height: 185.40 cm BSA: 2.05 m? Weight: 82.00 kg BMI: 23.9 kg/m? Heart rate 89 bpm Blood pressure 138/55 mmHg Color Doppler was utilized to interrogate the cardiac valves assessed and spectral Doppler was utilized to determine the flow velocities and pressure gradients reported in this exam. MEASUREMENTS: Value Indexed Normal Max aortic dimension 3.6 cm Ao < 3.8 Left atrial volume 87 ml (biplane A-L) 42 ml/m? Deisy <= 34 LV ID (diastole) 4.2 cm (2D) 2.06 cm/m? LV ID (systole) 2.8 cm (2D) 1.35 cm/m? IVS, leaflet tips 1.4 cm (2D) Posterior wall thickness 1.4 cm (2D) Left ventricular mass 228 g (2D) 111 g/m? LV stroke volume 53 ml (2D biplane) LV end diastolic volume 103 ml (2D biplane) 50.1 ml/m? 34<=EDVi<75 LV end systolic volume 50 ml (2D biplane) 24.2 ml/m? Ejection Fraction 52 % (2D biplane) EF [...] decreased. RV systolic tissue Doppler velocity is 6.0cm/s. Tricuspid annular displacement is 1.0 cm. Estimated [...] posterior. There is mild (1+ - 2+) holosystolicmitral valve regurgitation. There is mild thickening. The pressure half time is 47 msec. The peak mitral E/A ratio is 6.25. The average mitral E/e' ratio is 24.6. The mitral flow deceleration time is163 msec. TRICUSPID VALVE Post tricuspid valve repair. Hernandez MC3 Tricuspid Ring size #32. There is mild (1+) tricuspid valve regurgitation. The mean tricuspid gradient is 3 mmHg. The hepatic venous pattern showed blunted systolic flow. AORTIC VALVE Inspiris prosthetic valve size #25. There is trace aortic valve regurgitation. The peak gradient is10 mmHg (peak velocity = 162.0 cm/s). The [...] There is mild concentric left ventricular hypertrophy. Leftventricular systolic function is mildly decreased. EF = 52 ? 5% (2D biplane) - The right ventricle is normal in size. Right ventricular systolic function is mildly decreased. - The left atrial cavity is moderately dilated. - The right atrial cavity is dilated. - Post tricuspid valve repair. Hernandez MC3 Tricuspid Ring (size #32). There is mild (1+) tricuspid valve regurgitation. The peak gradient is 7 mmHg and the mean gradient is 3 mmHg. Previous p/m gradients 5/2mmHg. - Inspiris prosthetic aortic valve (size #25). There is trace aortic valve regurgitation. The peak gradient is 10 mmHg, the mean gradient is 6 mmHg and the dimensionless valve (more content not included)...NOMS HealthcareECHOOrdered By: Radiologist Radiology on 23-26-9813LVYF iFr[employer] Wars Work Phone: [facility] [phone] Study observation (narrative)NOMS HealthcareIOL BIOMETRY W/ IOL CALC OD (RIGHT EYE)on 11-15-2023 [facility] HospitalRad[facility] Study observation (narrative)[facility] NT- PROBNP SERPL-MCNCon 05-69-0916Qkbslqslqqgwic and review of laboratory results AbnormalNOMS HealthcareNatriuretic peptide B (Bld) [Mass/Vol]1619 pg/mLHighNINF - 450 pg/mLNOMS HealthcareSpecimen Type: BLOOD SPECIMEN Ordering Facility: [facility] Address: [address] [place] [address] Original Ordering Provider: EVER ALFARO [facility] HospitalLIPID PANEL, NONFASTINGon 48-18-5631Vgwfhdhjxue [Mass/Vol]152 mg/dLNormal<200[facility] Comment on above:Order Comment: Specimen Type: BLOOD SPECIMEN Ordering Facility: [facility] Address: [address] [place], [place] [address]Result Comment: <200 mg/dL, Desirable 200-239 mg/dL, Borderline high >239 mg/dL, HighPerformed By: #### LIPNF, 25784-1 #### [facility] CLIA [id number] [address] [place] [address] [place] [facility] WHITE HOSPITALHDL CHOLESTEROL, NF57 mg/dLNormal>39[facility] HospitalComment on above:Order Comment: Specimen Type: BLOOD SPECIMEN Ordering Facility: [facility] Address: [address] [place], [place] [address]Result Comment: 40-59 mg/dL, Acceptable >59 mg/dL, High: Negative risk factor for coronary heart disease <40 mg/dL, Low: Positive risk factor for coronary heart diseasePerformed By: #### LIPNF, 44610-9 #### [facility] CLIA [id number] [address] [place] [address] [place] AMERICALDL CHOLESTEROL, NF82 mg/dLNormal<100Avon HospitalComment on above:Order Comment: Specimen Type: BLOOD SPECIMEN Ordering Facility: [facility] Address: [address] [place], [place] [address]Result Comment: <100 mg/dL, Optimal 100-129 mg/dL, Near optimal/above optimal 130-159 mg/dL, Borderline high 160-189 mg/dL, High >189 mg/dL, Very high Secondary prevention optimal LDL Cholesterol levels are recommended to be < 70 mg/dLPerformed By: #### LIPNF, 27285-3 #### [facility] CLIA [id number] [facility] [place] [address] [place] AMERICALDL/HDL RATIO, NF1.44 mg/dLNormal<2.54 [facility] HospitalComment on above:Order Comment: Specimen Type: BLOOD SPECIMEN Ordering Facility: [facility] Address: [address] [place], [place] [address]Result Comment: Reference: 1. National Cholesterol Education Program ATP III Guideline At-A-Glance Quick Desk Reference: National Heart, Lung, and Blood [place]. National Institutes of Health. 2001: NIH Publication No. 01-3305. 2. An International Atherosclerosis Society position paper: global recommendations for the management of dyslipidemia: executive summary, Atherosclerosis. 2014: 232(2):410-413.Performed By: #### LIPNF, 83910-6 #### [facility] CLIA [id number] [address] [facility] [place] [address] [facility] HDL CHOL, NF95 mg/dLNormal<130[facility] HospitalComment on above:Order Comment: Specimen Type: BLOOD SPECIMEN Ordering Facility: [facility] Address: [address] [place] [address]Wxjntn Comment: <130 mg/dL, Optimal 130-159 mg/dL, Near optimal/above optimal 160-189 mg/dL, Borderline high 190-219 mg/dL, High >219 mg/dL, Very high Secondary prevention optimal non HDL Cholesterol levels are recommended to be <100 mg/dLPerformed By: #### LIPNF, 23004-2 #### [facility] CLIA [id number] [address] [facility] [place] [address] [place] [facility] HOSPITALT CHOL/HDL RATIO NF2.67 mg/dLNormal<5.10 [facility] HospitalComment on above:Order Comment: Specimen Type: BLOOD SPECIMEN Ordering Facility: [facility] Address: [address] [place], [place] [address]Performed By: #### LIPNF, 26209-3 #### [facility] CLIA [id number] [address] [place] [address] [place] AMERICATRIGLYCERIDES, NF66 mg/dLNormal<150Avon HospitalComment on above:Order Comment: Specimen Type: BLOOD SPECIMEN Ordering Facility: [facility] Address: [address] [place], [place] [address]Result Comment: <150 mg/dL, Normal 150-199 mg/dL, Borderline high 200-499 mg/dL, High >499 mg/dL, Very highPerformed By: #### LIPNF, 52673-3 #### [facility] CLIA [id number] [address] [place] [address] [place] AMERICAVLDL CHOLESTEROL, NF13 mg/dLNormal<30Avon HospitalComment on above:Order Comment: Specimen Type: BLOOD SPECIMEN Ordering Facility: [facility] Address: [address] [place], [place] [address]Performed By: #### LIPNF, 72151-9 #### [facility] CLIA [id number] [address] [place] [address] [place] AMERICACholesterol [Mass/Vol]152 mg/dL<200 mg/dL [facility] HospitalHDL Cholesterol, Usdpvuyxic96 mg/dL>39 mg/dLTwin City HospitalLDL Cholesterol, Gmfidydfvm19 mg/dL<100 mg/dLTwin City HospitalLDL/HDL Ratio, Nonfasting1.44 mg/dL<2.54 mg/dLTwin City HospitalNon HDL Cholesterol, Adugcszcfx49 mg/dL<130 mg/dLTwin City HospitalTotal Chol/HDL Ratio, Nonfasting2.67 mg/dL<5.10 mg/dLTwin City HospitalTriglycerides, Wykjpzxoym51 mg/dL<150 mg/dLTwin City Hospital VLDL Cholesterol, Jbpgpovggy32 mg/dL<30 mg/dLTwin City HospitalNT PRO BNPon 69-68-4543Gbvrhoijvay peptide.B prohormone N-Terminal [Mass/Vol]1619 pg/mLHigh <450 pg/mLCleveland ClinicNT-proBNP SerPl-mCncon 59-05-0279Oilsoijxgxb peptide.B prohormone N-Terminal [Mass/Vol]1619 pg/mLHigh<450Avon HospitalComment on above:Order Comment: Specimen Type: BLOOD SPECIMEN Ordering Facility: [facility] Address: [address] [place] [id number] By: #### LIPNF, 70534-4 #### [facility] CLIA [id number] [address] [place] [address] [facility] OF WHITE HOSPITALFERRITINon 12-91-6541Ennrerwh [Mass/Vol] 83.0 ng/fDIsxhcq07.0-388.0The [facility] Hospital LimaComment on above:Performed By: #### FETIBC, FERR #### [facility] [address] [place] [address] Dr. Tobias Torres AND TIBCon 10-09-2022% WWAQKLQHWI37.0 %NormalThe [facility] Hospital LimaComment on above:Performed By: #### FETIBC, FERR #### [facility] [address] [place] [address] Dr. Tobias Torres [Mass/Vol]64.0 ug/dLCritically low65.0-175.0The [facility] Hospital LimaComment on above:Performed By: #### FETIBC, FERR #### [facility] [address] [place] [address] Dr. Tobias MurrietaTIBCeci MEEKMF248.0 ug/oATpwtje688.0-450.0The [facility] Comment on above:Performed By: #### FETIBC, FERR #### [facility] [address] [place] [address] Dr. Tobias MurrietaHEMOGLOBIN AND HEMATOCRITon 68-77-8576Irquajofom (Bld) [Volume fraction]36.8 %Critically low42.0-54.0The [facility] Hospital LimaComment on above: Performed By: #### HGBHCT #### [facility] [address] [place] [address] Dr. Tobias MurrietaHemoglobin (Bld) [Mass/Vol]12.0 g/dLCritically low14.0-18.0The [facility] Hospital LimaComment on above:Performed By: #### HGBHCT #### [facility] [address] [place] [address] Dr. Tobias Torres AND TIBCon 07-10-2022% GFVLXUHZHV08.5 %NormalThe [facility] Hospital LimaComment on above:Performed By: #### TOTIBC, FERR #### [facility] [address] [place] [address] Dr. Tobias Torres [Mass/Vol]81.0 ug/xMCgiqzr41.0-175.0The [facility] Comment on above:Performed By: #### TOTIBC, FERR #### [facility] [address] [place] [address] Dr. Tobias Lynne TDCIDW838.0 ug/zJDvetae907.0-450.0The [facility] Comment on above:Performed By: #### TOTIBCeci, FERR #### [facility] [address] [place] [address] Dr. Tobias Gomez Colonoscopyon 78-61-4097Fwbdmbo Colonoscopy [id number]#1.00CD:127[facility] HospitalReminderson 31-65-8873Ijsmqhoef From: Ree Knutson LPN To: G[facility] - Clinical; Sent: 06/14/2022 09:22:28 EST Show up: 05/14/2032 07:00:00 EST Subject: colonoscopy recall Due Date/Time: 06/13/2032 07:00:00 EST Reminder/Recall Patient is due for screening colonoscopy 06/13/2032.[facility] HospitalLab Reportson 95-46-1025Avs Reports [id number]#1.00CD:127[facility] HospitalCovid-19 PCR (CVDTB)on 04-22-0365JPZZ-CoV-2 (COVID-19) RNA HAROON+probe Ql (Unsp spec)Not detectedNormalNOT DETECTEDThe [facility] Hospital LimaComment on above: Result Comment: This test is not yet approved or cleared by the [place] FDA. When there are no FDA-approved or cleared tests available, and other criteria are met, FDA can make tests available under an emergency access mechanism called an Emergency Use Authorization (EUA). The EUA for this test is supported by the [place] of Health and Human Service's (HHS's) declaration [...] of clinical signs and symptoms consistent with SARS-CoV-2.Performed By: #### CVDTBH #### [facility] [address] [place] [address] Dr. Tobias MurrietaConsultation Noteon 05-52-9676Ptcgprmsfgkl Note [id number]:127NoWooster Community HospitalFormson [id number]#1.00CD:127 [facility] HospitalConsent for Procedure/Surgeryon 05-23-2022 Consent for Procedure/[id number]#1.00CD:127 [facility] HospitalAmbulatory Visit Summaryon 95-55-1046Rijqmkhuwd Visit Summary BRITTA TORRES :1945 Visit Date:05/22/2022 [...] block Tricuspid stenosis, non-rheumatic Vitamin D deficiency [facility] HospitalPhysician Referralon 05-03-2022 Physician [id number]#1.00CD:127Normal [facility] HospitalCBC AUTO DIFFon 65-26-6563LRKU #0.0 103/ulNormal 0.0-0.1St. [facility]S Medical CenterComment on above:Performed By: #### CBC #### [facility] [address] [place] [address] Dr. Tobias MurrietaBasophils/100 WBC (Bld)0.3 %Normal0.2-2.0The [facility] Comment on above:Performed By: #### CBC #### [facility] [address] [place] [address] [address] Tobias Dial #0.2 103/ulNormal0.0-0.7The [facility] Hospital LimaComment on above: Performed By: #### CBC #### [facility] [address] [place] [address] [address] Tobias Stanleyosinophils/100 WBC (Bld)3.0 %Normal0.9-7.0[facility] Comment on above:Performed By: #### CBC #### [facility] [address] [place] [address] Dr. Tobias Stanleyrythrocyte distribution width (RBC) [Ratio]13.2 %Hpagvs79.0-15.0 [facility] on above:Performed By: #### CBC #### [facility] Laboratory [address] [place] [address] Dr. Tobias MurrietaHematocrit (Bld) [Volume fraction]40.2 %Critically low42.0-54.0 [facility] on above:Performed By: #### CBC #### [facility] [address] [place] [address] Dr. Tobias MurrietaHemoglobin (Bld) [Mass/Vol]12.8 g/dLCritically low14.0-18.0[facility] on above:Performed By: #### CBC #### [facility] [address] [place] [address] Dr. Tobias Jean Baptiste #0.01 10e3/ulNormal0.00-0.03[facility] on above:Performed By: #### CBC #### [facility] [address] [place] [address] Dr. Tobias Jean Baptiste %0.2 %Normal0.0-0.5[facility] on above: Performed By: #### CBC #### [facility] [address] [place] [address] Dr. Tobias CandelarioH #2.0 103/ulNormal1.2-3.8[facility] on above:Performed By: #### CBC #### [facility] [address] [place] [address] Dr. Tobias Avalosmphocytes/100 WBC (Bld)34.1 %Hnkhbs94.5-60.0[facility] on above:Performed By: #### CBC #### [facility] [address] [place] [address] Dr. Tobias OrdazUAL DIFF REQNONormalThe [facility]imaComment on above: Performed By: #### CBC #### [facility] [address] [address] [address] Tobias Taylor (RBC) [Entitic mass]29.3 ftYgejfy01.9-34.0The [facility]ima[facility] on above:Performed By: #### CBC #### [facility] [address] [place] [address] Dr. Tobias Taylor (RBC) [Mass/Vol]31.8 g/wAFaltde98.9-35.2[facility] above:Performed By: #### CBC #### [facility] [address] [place] [address] Dr. Tobias Taylor (RBC) [Entitic vol]92.0 oLJpjxfm94.0-94.0The [facility]imaComment on above:Performed By: #### CBC #### [facility] [address] [place] [address] Dr. Tobias Moeller #0.8 103/ulNormal0.3-0.8The [facility]ima[facility] on above:Performed By: #### CBC #### [facility] [address] [place] [address] Dr. Tobias Philipocytes/100 WBC (Bld)13.9 %Critically high1.7-12.0The [facility]ima[facility] on above:Performed By: #### CBC #### [facility] [address] [place] [address] Dr. Tobias Larry #2.9 103/ulNormal1.4-6.5The [facility]imaComment on above:Performed By: #### CBC #### [facility] [address] [place] [address] Dr. Tobias Camachoutrophils/100 WBC (Bld)48.5 %Dzklrb35.0-75.0The [facility]ima[facility] on above:Performed By: #### CBC #### [facility] [address] [place] [address] Dr. Tobias Shipmanlet mean volume (Bld) [Entitic vol]9.8 fLNormal9.5-13.5The [facility]imaComment on above:Performed By: #### CBC #### [facility] [address] [place] [address] Dr. Tobias WellingtonT135 103/ulCritically qcn495-034Zte [facility]imaComment on above:Performed By: #### CBC #### [facility] [address] [place] [address] Dr. Tobias MurrietaRBC4.37 106/ulCritically low4.70-6.10The [facility] HospitalComment on above:Performed By: #### CBC #### [facility] [address] [place] [address] Dr. Tobias MurrietaWBC5.9 103/ulNormal4.0-11.0The [facility]imaComment on above: Performed By: #### CBC #### [facility] [address] [place] [address] Dr. Tobias MurrietaFERRITINon 72-31-2544Hnxxdkzp [Mass/Vol]72.0 ng/mLNormal 26.0-388.0The [facility]imaComment on above:Performed By: #### TOTMARYANN, FERR #### [facility] [address] [place] [address] Dr. Tobias Tesfaye 03-30-0146Jjtl [Mass/Vol]52.0 ug/dLCritically low 65.0-175.0The [facility]imaComment on above:Performed By: #### IRON #### [facility] [address] [place] [address] Dr. Tobias MurrietaTIBCeci ONLY- NO FEon 65-13-5340CMYX EJSSLH017.0 ug/dLNormal 250.0-450.0The [facility]imaComment on above:Performed By: #### TOTIBC, FERR #### [facility] [address] [place] [address] Dr. Tobias Juares AUTO DIFFon [id number] #0.0 103/ulNormal0.0-0.1The [facility]imaComment on above:Performed By: #### DATCBC #### [facility] [address] [place] [address] Dr. Tobias MurrietaBasophils/100 WBC (Bld)0.4 %Normal0.2-2.0[facility] Comment on above:Performed By: #### DATCBC #### [facility] [address] [place] [address] Dr. Tobias Dial #0.2 103/ulNormal0.0-0.7The [facility]ima[facility] on above: Performed By: #### DATCBC #### [facility] [address] [place] [address] Dr. Tobias Stanleyosinophils/100 WBC (Bld)4.1 %Normal0.9-7.0[facility] Comment on above:Performed By: #### DATCBC #### [facility] [address] [place] [address] Dr. Tobias Stanleyrythrocyte distribution width (RBC) [Ratio]13.9 %Ieslyk12.0-15.0 [facility] CenterComment on above:Performed By: #### DATCBC #### [facility] [address] [place] [address] Dr. Tobias MurrietaHematocrit (Bld) [Volume fraction]38.0 %Critically low42.0-54.0 The [facility] on above:Performed By: #### DATCBC #### [facility] [address] [place] [address] Dr. Tobias MurrietaHemoglobin (Bld) [Mass/Vol]12.5 g/dLCritically low14.0-18.0[facility] on above:Performed By: #### DATCBC #### [facility] [address] [place] [address] Dr. Tobias Jean Baptiste #0.00 10e3/ulNormal0.00-0.03The [facility]ima[facility] on above:Performed By: #### DATCBC #### [facility] [address] [place] [address] Dr. Tobias Jean Baptiste %0.0 %Normal0.0-0.5The [facility]ima[facility] on above: Performed By: #### DATCBC #### [facility] [address] [place] [address] Dr. Tobias Rush #2.2 103/ulNormal1.2-3.8The [facility] on above:Performed By: #### DATCBC #### [facility] [address] [place] [address] Dr. Tobias Candelariohocytes/100 WBC (Bld)46.1 %Dnpbhe50.5-60.0The [facility]ima[facility] on above:Performed By: #### DATCBC #### [facility] [address] [place] [address] Dr. Tobias Taylor (RBC) [Entitic mass]29.8 yiVnifab74.9-34.0The [facility]ima[facility] on above:Performed By: #### DATCBC #### [facility] [address] [place] [address] Dr. Tobias Taylor (RBC) [Mass/Vol]32.9 g/cTYemaqj39.9-35.2[facility] on above:Performed By: #### DATCBC #### [facility] [address] [place] [address] Dr. Tobias Taylor (RBC) [Entitic vol]90.7 wVBajsur42.0-94.0[facility] on above:Performed By: #### DATCBC #### [facility] [address] [place] [address] Dr. Tobias Moeller #0.6 103/ulNormal0.3-0.8The [facility]ima[facility] on above:Performed By: #### DATCBC #### [facility] [address] [place] [address] Dr. Tobias Philipocytes/100 WBC (Bld)12.1 %Critically high1.7-12.0The [facility]ima[facility] on above:Performed By: #### DATCBC #### [facility] [address] [place] [address] Dr. Tobias Larry #1.8 103/ulNormal1.4-6.5The [facility]ima[facility] on above:Performed By: #### DATCBC #### [facility] [address] [place] [address] Dr. Tobias Camachoutrophils/100 WBC (Bld)37.3 %Critically low43.0-75.0The [facility]ima[facility] on above:Performed By: #### DATCBC #### [facility] [address] [place] [address] Dr. Tobias MurrietaPlatelet mean volume (Bld) [Entitic vol]9.6 fLNormal9.5-13.5The [facility]ima[facility] on above:Performed By: #### DATCBC #### [facility] [address] [place] [address] Dr. Tobias WellingtonT131 103/ulCritically mkg444-488Xbg [facility]imaComment on above:Performed By: #### DATCBC #### [facility] [address] [place] [address] Dr. Tobias MurrietaRBC4.19 106/ulCritically low4.70-6.10The [facility]imaComment on above:Performed By: #### DATCBC #### [facility] [address] [place] [address] Dr. Tobias MurrietaWBC4.9 103/ulNormal4.0-11.0The [facility]ima[facility] on above: Performed By: #### DATCBC #### [facility] [address] [place] [address] Dr. Tobias Lowery- BMP WITH LIPIDon 62-70-8464Sxjva gap [Moles/Vol]11.2 mmol/L NormalThe [facility]imaComment on above:Performed By: #### TOTIBC, FERR #### [facility] [address] [place] [address] Dr. Tobias MurrietaCalcium [Mass/Vol]9.2 mg/dLNormal8.5-10.1[facility] Comment on above:Performed By: #### TOTIBC, FERR #### [facility] [address] [place] [address] Dr. Tobias MurrietaChloride [Moles/Vol]107 mmol/HEwltln76-326TefSt. Mary'S Medical Center Comment on above:Performed By: #### TOTIBC, FERR #### [facility] [address] [address] [address] Tobias MurrietaCholesterol [Mass/Vol]154 mg/dLNormal<=200The [facility] Comment on above:Performed By: #### TOTIBC, FERR #### [facility] [address] [place] [address] Dr. Tobias MurrietaCholesterol in HDL [Mass/Vol]55 mg/iKKcyuew24-23Mqk [facility]imaComment on above:Performed By: #### TOTIBC, FERR #### [facility] [address] [place] [address] Dr. Tobias MurrietaCholesterol in LDL [Mass/Vol]90.0 mg/dLNormalThe [facility]imaComment on above:Performed By: #### TOTIBC, FERR #### [facility] [address] [place] [address] Dr. Tobias MurrietaCO2 [Moles/Vol]30.3 mmol/TWzyhcp66.0-32.0[facility] Comment on above:Performed By: #### TOTIBC, FERR #### [facility] [address] [place] [address] Dr. Tobias MurrietaCreatinine [Mass/Vol]0.98 mg/dLNormal0.70-1.30The [facility]imaComment on above:Performed By: #### TOTIBC, FERR #### [facility] [address] [place] [address] Dr. Tobias StanleyGFR-AF BOLIVIAN>60Normal>=60The [facility]imaComment on above:Performed By: #### TOTIBC, FERR #### [facility] [address] [address] [address] Tobias StanleyGFR-NON AF BOLIVIAN>60Normal>=60The [facility]imaComment on above:Performed By: #### TOTIBC, FERR #### [facility] [address] [place] [address] Dr. Tobias MurrietaGlucose [Mass/Vol]94 mg/qRBsisuo16-219QmfSt. Mary'S Medical Center Comment on above:Performed By: #### TOTIBC, FERR #### [facility] [address] [place] [address] Dr. Tobias Lamb NORMAL> or = 60 mg/dl - LOW CARDIOVASCULAR RISK <40 mg/dl - HIGH CARDIOVASCULAR RISKFulton County Health CenterComment on above:Performed By: #### TOTIBC, FERR #### [facility] [address] [place] [address] Dr. Tobias MurrietaLDL CALC NORMALSEE BELOWNoCleveland Clinic Mentor HospitalComment on above:Result Comment: <100 mg/dl OPTIMAL 100 - 129 mg/dl NEAR OR ABOVE OPTIMAL 130 - 159 mg/dl BORDERLINE HIGH 160 - 189 mg/dl HIGH >190 mg/dl VERY HIGH Performed By: #### TOTIBC, FERR #### [facility] [address] [place] [address] Dr. Tobias MurrietaPotassium [Moles/Vol]4.5 mmol/LNormal3.5-5.1[facility] Comment on above:Performed By: #### TOTIBC, FERR #### [facility] [address] [place] [address] Dr. Tobias MurrietaSodium [Moles/Vol]144 mmol/EMfxlxj012-973OdfSt. Mary'S Medical Center Comment on above:Performed By: #### TOTIBC, FERR #### [facility] [address] [place] [address] Dr. Tobias MurrietaTriglyceride [Mass/Vol]45 mg/dLNormal<=150[facility] Comment on above:Performed By: #### TOTIBC, FERR #### [facility] [address] [place] [address] Dr. Tobias Mooer nitrogen [Mass/Vol]27.0 mg/dLCritically high7.0-18.0The [facility]imaComment on above:Performed By: #### TOTIBC, FERR #### [facility] [address] [address] [address] Tobias MurrietaUrea nitrogen/Creatinine [Mass ratio]27.6 mg/mgNoCleveland Clinic Mentor HospitalComment on above:Performed By: #### TOTIBC, FERR #### [facility] [address] [address] [address] Tobias MurrietaVLDL CALC9.0 mg/dLNoCleveland Clinic Mentor HospitalComment on above: Performed By: #### TOTIBC, FERR #### [facility] [address] [address] [address] Tobias MurrietaCBC panel Auto (Bld)on [id number] distribution width (RBC) [Ratio]14.1 %11.5 - 15.0 %[facility] City HospitalHematocrit (Bld) [Volume fraction]41.2 %39.0 - 51.0 %[facility] HospitalHemoglobin (Bld) [Mass/Vol]12.9 g/dL Low13.0 - 17.0 g/dLTrinity Health System West CampusH (RBC) [Entitic mass]28.9 pg26.0 - 34.0 pg [facility] CampusHC (RBC) [Mass/Vol]31.3 g/dL30.5 - 36.0 g/dLTwin City Hospital MCV (RBC) [Entitic vol]92.2 fL80.0 - 100.0 fLCleveland ClinicNucleated RBC (Bld) [#/Vol]10*3/uL<0.01 k/uLTwin City HospitalPlatelet mean volume (Bld) [Entitic vol] 10.9 fL9.0 - 12.7 fLCleveland ClinicPlatelets (Bld) [#/Vol]151 10*3/uL150 - 400 k/uLTwin City HospitalRBC (Bld) [#/Vol]4.47 10*6/uL4.20 - 6.00 m/uLTwin City HospitalWBC (Bld) [#/Vol]4.66 10*3/uL3.70 - 11.00 k/uLTwin City Hospital Comprehensive metabolic 2000 panelon 28-21-2315Fmtfftw [Mass/Vol]4.5 g/dL3.9 - 4.9 g/dLFerdinand ClinicALP [Catalytic activity/Vol]112 U/L38 - 113 U/LCleveland ClinicALT [Catalytic activity/Vol]26 U/L10 - 54 U/LCleveland ClinicAnion gap [Moles/Vol]11 mmol/L9 - 18 mmol/LCleveland ClinicAST [Catalytic activity/Vol]33 U/L14 - 40 U/LCleveland ClinicBilirubin [Mass/Vol]0.8 mg/dL0.2 - 1.3 mg/dL [facility] HospitalCalcium [Mass/Vol]9.6 mg/dL8.5 - 10.2 mg/dLTwin City Hospital Chloride [Moles/Vol]102 mmol/L97 - 105 mmol/LCleveland ClinicCO2 [Moles/Vol]27 mmol/L22 - 30 mmol/LCleveland ClinicCreatinine [Mass/Vol]0.95 mg/dL0.73 - 1.22 mg/dLTwin City HospitalEstimated Glomerular Filtration Rate83 mL/min/1.73m>=60 mL/min/1.73mCleveland ClinicGlucose [Mass/Vol]109 mg/xRDnrp72 - 99 mg/dL [facility] HospitalPotassium [Moles/Vol]5.5 mmol/LHigh3.7 - 5.1 mmol/LCleveland ClinicProtein [Mass/Vol]7.4 g/dL6.3 - 8.0 g/dLSouthern Ohio Medical Centerodium [Moles/Vol] 140 mmol/L136 - 144 mmol/LCleveland ClinicUrea nitrogen [Mass/Vol]22 mg/dL9 - 24 mg/dLTwin City HospitalNT PRO BNPon 12-22-0919Hgdcpgpjcrk peptide.B prohormone N- Terminal [Mass/Vol]600 pg/mLHigh<450 pg/mLCleveland ClinicNo Panel Information [facility] Vital Signs Date TimeVital SignValuePerforming NwhskgycrLozqmxpu83-80-4999 07:58-0500Body fcgsyt959.4 Elmira Ontiveros MD Work Phone: [phone] [place], [place] [address]Xwkqrnnwql15-93-8322 07:58-0500Body mass index (BMI) [Ratio]22.82 kg/w6VueollAusten nOtiveros MD Work Phone: [phone] HospitalZxxswhhjsg53-60-8331 07:58-0500Body .47 kgAusten Ontiveros MD Work Phone: [phone] HospitalYltnlxdlje58-90-1931 07:58-0500Diastolic blood mmlhuaqd75 mm[Hg]Austen Ontiveros MD Work Phone: [phone]11-04-2025 07:58-0500Heart rate70 /min Austen Ontiveros MD Work Phone: [phone] [address]Lgshdhmfoa01-26-7755 07:58-3111IeU6% (BldA) [Mass fraction]98 %Austen Ontiveros MD Work Phone: [facility] HospitalVwdnjcqwya65-36-5960 07:58-0500Systolic blood ypcwqqth481 mm[Hg]Austen Ontiveros MD Work Phone: [phone] [place], [place] [address]Pkceryskkj94-81-2790 15:38-0400Body mass index (BMI) [Ratio]23.12 kg/l2Ylxdqvchristopher Mckeon LABOR RELATIONS TEACHER.DJ INSTRUCTOR Work Phone: [facility]08-28-2025 15:38-0400Body cfekaz46.5 kgTaanandaa Mckeon LABOR RELATIONS TEACHER.DJ INSTRUCTOR Work Phone: [facility]08-28-2025 15:38-0400Diastolic blood wufzilue71 mm[Hg]Brandy Mckeon LABOR RELATIONS TEACHER.DJ INSTRUCTOR Work Phone: [facility]08-28-2025 15:38-0400Heart rate71 /min Brandy Mckeon LABOR RELATIONS TEACHER.DJ INSTRUCTOR Work Phone: [facility]08-28-2025 15:38-0400Systolic blood mm[Hg]Brandy Mckeon LABOR RELATIONS TEACHER.DJ INSTRUCTOR Work Phone: [facility]07-28-2025 15:50-0400Body msnymq822.4 cmEpastora Ontiveros MD Work Phone: [facility] HospitalRkuxxddhqj63-39-8810 15:50-0400Body mass index (BMI) [Ratio]22.43 kg/b4EegnljAusten Ontiveros MD Work Phone: [facility] HospitalJvoitgxxir85-83-4641 15:50-0400Body gmtsex75.11 kgAusten Ontiveros MD Work Phone: [facility] HospitalCuxoltxrwv76-47-8747 08:02-0400Body mass index (BMI) [Ratio]22.34 kg/p5Lkjrireed Archer LABOR RELATIONS TEACHER.DJ INSTRUCTOR Work Phone: [facility]07-01-2025 08:02-0400Body ldywnp63.8 kgSareed Archer LABOR RELATIONS TEACHER.DJ INSTRUCTOR Work Phone: [facility]07-01-2025 08:02-0400Diastolic blood auainlez84 mm[Hg]Patricia Archer LABOR RELATIONS TEACHER.DJ INSTRUCTOR Work Phone: [facility]07-01-2025 08:02-0400Heart rate80 /min Patricia Archer LABOR RELATIONS TEACHER.DJ INSTRUCTOR Work Phone: [facility]07-01-2025 08:02-0400Systolic blood nplibnur114 mm[Hg]Patricia Archer LABOR RELATIONS TEACHER.DJ INSTRUCTOR Work Phone: [facility]06-16-2025 13:30-0400Body pepykv996.4 cmEpastora Ontiveros MD Work Phone: [facility] HospitalXqvevftcqp57-95-1949 13:30-0400Body mass index (BMI) [Ratio]22.43 kg/q6JfavnpAusten Ontiveros MD Work Phone: [facility] HospitalKhxlmvbmsn50-56-9611 13:30-0400Body xzzcul25.11 Aide Ontiveros MD Work Phone: [phone] HospitalFurrsnbybz64-17-8272 13:30-0400Heart ymok697 /min Austen Ontiveros MD Work Phone: [facility] HospitalMgdzqgpjzt21-20-5314 13:30-0018DnW1% (BldA) [Mass fraction]95 %Austen Ontiveros MD Work Phone: [facility] HospitalVwbvgtfujd44-61-1541 11:34-0400Body hzdusf553.4 cmEpastora Ontiveros MD Work Phone: [facility] HospitalZjlxggponq69-66-5570 11:34-0400Body mass index (BMI) [Ratio]22.43 kg/f4RxpsauAusten Ontiveros MD Work Phone: [facility] HospitalHsoeqnvegb42-34-4404 11:34-0400Body .11 kgAusten Ontiveros MD Work Phone: [facility] HospitalHbthogjxgu79-71-4502 09:59-0400Body kdajnr776.4 Ximena Estrada MD Work Phone: [facility]04-04-2025 09:59-0400Body mass index (BMI) [Ratio]22.4 kg/y3RlqlduEver Estrada MD Work Phone: [facility]04-04-2025 09:59-0400Body ecfuho44 kg Ever Estrada MD Work Phone: [facility]04-04-2025 09:59-0400Diastolic blood ovmjwidm81 mm[Hg]Ever Estrada MD Work Phone: [facility]04-04-2025 09:59-0400Heart rate83 /min Ever Estrada MD Work Phone: [facility]04-04-2025 09:59-0400Systolic blood ftbskxap574 mm[Hg]Ever Estrada MD Work Phone: [facility]12-09-2024 11:59-0500Body mass index (BMI) [Ratio]22.6 kg/n3VttzczkqDharmesh Bagley MD Work Phone: [facility]12-09-2024 11:59-0500Body byrmes40.7 kgDharmesh Bagley MD Work Phone: [facility]12-09-2024 11:59-0500Diastolic blood voowgrni79 mm[Hg]Dharmesh Bagley MD Work Phone: [facility]12-09-2024 11:59-0500Heart rate55 /min Dharmesh Bagley MD Work Phone: [facility]12-09-2024 11:59-9336IiU3% (BldA) [Mass fraction]96 %Dharmesh Bagley MD Work Phone: [facility]12-09-2024 11:59-0500Systolic blood ughfysdv637 mm[Hg]Dharmesh Bagley MD Work Phone: [facility]10-22-2024 09:42-0400Body jqawzp190.4 cmEpastora Ontiveros MD Work Phone: [phone]10-22-2024 09:42-0400Body mass index (BMI) [Ratio]22.43 kg/j0SszqdwAusten Ontiveros MD Work Phone: [phone] [place], [place] [address]Vcusyzvfei28-42-5490 09:42-0400Body qakzhq64.11 kgAusten Ontiveros MD Work Phone: [phone] [place], [place] [address]Dvereidhwg17-64-9645 09:11-0400Body .4 cmEpastora Ontiveros MD Work Phone: [phone]10-01-2024 09:11-0400Body mass index (BMI) [Ratio]22.43 kg/e7SpksfgAusten Ontiveros MD Work Phone: [phone] [place], [place] [address]Qgzdeystkn99-18-9251 09:11-0400Body hqhpiq61.11 kgAusten Ontiveros MD Work Phone: [phone] [place], [place] [address]Bksqqlblye25-42-6577 09:11-0400Diastolic blood qneysxwc00 mm[Hg]Austen Ontiveros MD Work Phone: [phone]10-01-2024 09:11-0400Heart nhpy955 /min Austen Ontiveros MD Work Phone: [phone] [place] [address]-01-2024 09:11-0071NqE2% (BldA) [Mass fraction]97 %Austen Ontiveros MD Work Phone: [phone] [place], [place] 0108010-01-2024 09:11-0400Systolic blood tpyokovp315 mm[Hg]Austen Ontiveros MD Work Phone: [facility] HospitalNgtlcnjqtn86-66-0295 08:43-0400Body mass index (BMI) [Ratio]22.28 kg/q2Rgxogreed Archer LABOR RELATIONS TEACHER.DJ INSTRUCTOR Work Phone: [facility]09-09-2024 08:43-0400Body xcozcl98.6 kgPatricia Archer LABOR RELATIONS TEACHER.DJ INSTRUCTOR Work Phone: [facility]09-09-2024 08:43-0400Diastolic blood wbxzhzul64 mm[Hg]Patricia Archer LABOR RELATIONS TEACHER.DJ INSTRUCTOR Work Phone: [facility]09-09-2024 08:43-0400Heart rate91 /min Patricia Archer LABOR RELATIONS TEACHER.DJ INSTRUCTOR Work Phone: [facility]09-09-2024 08:43-0104WnY2% (BldA) [Mass fraction]99 %Patricia Archer LABOR RELATIONS TEACHER.DJ INSTRUCTOR Work Phone: [facility]09-09-2024 08:43-0400Systolic blood ymlmvmnt664 mm[Hg]Patricia Archer LABOR RELATIONS TEACHER.DJ INSTRUCTOR Work Phone: [facility]05-10-2024 12:40-0400Body mlwlem716.4 cmPacc 1 Work Phone: [facility]05-10-2024 12:40-0400Body mass index (BMI) [Ratio]23.85 kg/m2Pacc 1 Work Phone: [facility]05-10-2024 12:40-0400Body temperature 97.3 [degF]Pacc 1 Work Phone: [facility]05-10-2024 12:40-0400Body numnor62 kg Pacc 1 Work Phone: [facility]05-10-2024 12:40-0400Diastolic blood zsdvdtyh16 mm[Hg]Pacc 1 Work Phone: [facility]05-10-2024 12:40-0400Heart rate66 /min Pacc 1 Work Phone: [facility]05-10-2024 12:40-0400Respiratory rate 16 /minPacc 1 Work Phone: [facility]05-10-2024 12:40-1852MtS9% (BldA) [Mass fraction]99 %Pac 1 Work Phone: [facility]05-10-2024 12:40-0400Systolic blood idroshrg802 mm[Hg]Pac 1 Work Phone: [facility]02-02-2024 09:32-0500Body hiwfwr304.4 cmAlaurence Estrada MD Work Phone: [facility]02-02-2024 09:32-0500Body bwzamk27.4 kgEver Estrada MD Work Phone: [facility]02-02-2024 09:32-0500Diastolic blood ipfuklse96 mm[Hg]Ever Estrada MD Work Phone: [facility]02-02-2024 09:32-0500Heart rate62 /min Ever Estrada MD Work Phone: [facility]02-02-2024 09:32-0500Respiratory rate 18 /minEver Estrada MD Work Phone: [facility]02-02-2024 09:32-8202XvX9% (BldA) [Mass fraction]95 %Ever Estrada MD Work Phone: [facility]02-02-2024 09:32-0500Systolic blood uzrvnqki200 mm[Hg]Ever Estrada MD Work Phone: [facility]12-01-2023 08:42-0500Body .7 cmMarisol Subramanian LABOR RELATIONS TEACHER.DJ INSTRUCTOR Work Phone: [facility]12-01-2023 08:42-0500Body yoiuxr57.37 kgMarisol Subramanian LABOR RELATIONS TEACHER.DJ INSTRUCTOR Work Phone: [facility]12-01-2023 08:42-0500Diastolic blood wkwxlieh38 mm[Hg]Amy Subramanian LABOR RELATIONS TEACHER.DJ INSTRUCTOR Work Phone: [facility]12-01-2023 08:42-0500Heart rate86 /min Amy Subramanian LABOR RELATIONS TEACHER.DJ INSTRUCTOR Work Phone: [facility]12-01-2023 08:42-0500Systolic blood onxsmnle761 mm[Hg]Amy Subramanian LABOR RELATIONS TEACHER.DJ INSTRUCTOR Work Phone: [facility]02-24-2023 08:12-0500Body ajowwv12.19 Eladio Bagley MD Work Phone: [facility]02-24-2023 08:12-0500Diastolic blood xmcvxqei24 mm[Hg]Dharmesh Bagley MD Work Phone: [facility]02-24-2023 08:12-0500Heart kyzn692 /minDharmesh Bagley MD Work Phone: [facility]02-24-2023 08:12-0500Systolic blood ppzixcqh616 mm[Hg]Dharmesh Bagley MD Work Phone: [facility]11-28-2022 08:37-0500Body .7 Ximena Estrada MD Work Phone: [facility]11-28-2022 08:37-0500Body hrfusz77.46 kgEver Estrada MD Work Phone: [facility]11-28-2022 08:37-0500Diastolic blood srnrimhu78 mm[Hg]Ever Estrada MD Work Phone: [facility]11-28-2022 08:37-0500Heart ypro583 /minEver Estrada MD Work Phone: [facility]11-28-2022 08:37-0500Systolic blood oqchvqkh853 mm[Hg]Ever Estrada MD Work Phone: [facility]11-15-2022 09:55-0500Blood Pressure LocationMichael NILL [phone]-LyjyiGerman [facility] [place] 05-22-2022 09:55-0500Diastolic blood jrqkmyox84 mm[Hg]Ishaan NILL [phone]-KsqpmGerman Hospital [facility] [place] 05-22-2022 09:55-0500Heart pvdb583 /minMichael NILL [phone]-KkwinGerman Hospital [facility] [place] 05-22-2022 09:55-0500Respiratory rate16 /minMichael NILL [phone]-PrsrjGerman [facility] [place] 05-22-2022 09:55-0500Systolic blood kaehvvhk343 mm[Hg]Ishaan DOWLING [phone]-KvklcGerman Hospital [facility] [place] 03-01-2022 08:48-0400Body pivlhy300.7 Leanna Bagley MD Work Phone: [facility]08-25-2022 08:48-0400Body noqqwq06.65 Eladio Bagley MD Work Phone: [facility]08-25-2022 08:48-0400Diastolic blood bprarchq52 mm[Hg]Dharmesh Bagley MD Work Phone: [facility]08-25-2022 08:48-0400Heart gmzf446 /minDharmesh Bagley MD Work Phone: [facility]08-25-2022 08:48-0400Systolic blood wpejwtgc325 mm[Hg]Dharmesh Bagley MD Work Phone: [facility]07-14-2022 09:11-0400Body qattjn41.38 kgEver Estrada MD Work Phone: [facility]07-14-2022 09:11-0400Diastolic blood icmkvjnb31 mm[Hg]Ever Estrada MD Work Phone: [facility]07-14-2022 09:11-0400Heart rate95 /min Ever Estrada MD Work Phone: [facility]07-14-2022 09:Systolic blood uzwmgiev293 mm[Hg]Ever Estrada MD Work Phone: [facility] Encounters Encounter DateEncounter TypeCare ProviderFacilityStart: 05-17-2025 End: 66-49-6029sievdpvuxdDNKJLYM ORTIZFacility:[facility] HospitalStart: 05-11-2025 End: 90-11-7486Hakale Matias Ontiveros MD Work Phone: [facility] [address] [facility] MedicineStart: 05-11-2025 End: 83-35-8553Lrucbpfide Ontiveros MD Work Phone: NO [place] [address] [facility] MedicineStart: 05-11-2025 End: 48-64-8531Isuyufb encounter procedureEddonna Ontiveros MD Work Phone: [facility] MedicineComment on above: Encounter for Medicare annual wellness exam (Primary Dx); Advance directive in chart; Encounter for screening for other disorder; Screening for alcohol problem; Osteopenia of neck of right femur; Screening for osteoporosisStart: 05-11-2025 End: 66-30-4885vlemfryzohPNYIDZ J HEMEYERNot AvailableStart: 03-22-2025 End: 01-44-7668doeyvzdfxcFDEMROElizabeth ONTIVEROSFacility:[facility] Start: 03-12-2025 End: 04-55-9021Havpqvtcl Result EncounterGeneric External Data ProviderNOMS External Department UnsolicitedStart: 03-12-2025 End: 50-24-1324Pogmxxboq Result EncounterGeneric External Data ProviderNOMS External Department UnsolicitedStart: 03-12-2025 End: 30-45-9635Anklvhqggd hospital visit by Madai Cruz Work Phone: Cardiovascular TestingComment on above:Coronary artery disease involving coronary bypass graft of [place] heart without angina pectoris [I25.810]Start: 03-12-2025 End: 84-61-1983plkzdksuepWNTYDRA LONGFacility:[facility] HospitalStart: 03-05-2025 End: 73-90-0421Xxdwudvfm encounterMaabel Hines MD Work Phone: CardiologyStart: 03-04-2025 End: 30-66-4818Ooqrafs encounter procedureTachristopher Mckeon CLAUDIO Work Phone: CardiologyComment on above:Permanent atrial fibrillation (HCC) (Primary Dx); Tachy-maría syndrome (HCC); Essential hypertension; Current use of residential anticoagulation; Syncope, unspecified syncope typeStart: 03-04-2025 End: 91-36-5994yneweqmkfdVHYUPN JOSEPH HEMEYERFacility:[facility] Start: 03-04-2025 End: 86-38-9112Aydimwubw Result EncounterGeneric External Data ProviderNOMS External Department UnsolicitedStart: 03-04-2025 End: 33-65-8658Juzfnhpgm Result EncounterGeneric External Data ProviderNOMS External Department UnsolicitedStart: 02-01-2025 End: 89-43-5696Toynio outpatient visit 15 minutesEddonna Ontiveros MD Work Phone: [facility] [address] MedicineComment on above:Right foot pain (Primary Dx)Start: 02-01-2025 End: 63-21-9430motytaznbyKBZHPM J HEMEYERNot AvailableStart: 02-01-2025 End: 28-54-7860Lvszdo flowsYousif Ontiveros MD Work Phone: [facility] MedicineStart: 02-01-2025 End: 73-62-3889Myyfxwfide Ontiveros MD Work Phone: NOKY [place] [address] [facility] MedicineStart: 01-14-2025 End: 68-53-3378Jsylaw-up encounterOrestes Prabhakar RNCardiologyStart: 01-07-2025 End: 52-03-5360Idlqmcvvv Result EncounterGeneric External Data ProviderNOMS External Department UnsolicitedStart: 01-07-2025 End: 75-25-7522Srtzaeple Result EncounterGeneric External Data ProviderNOMS External Department UnsolicitedStart: 01-05-2025 End: 44-51-3984Oojvxzxwl Result EncounterGeneric External Data ProviderNOMS External Department UnsolicitedStart: 01-05-2025 End: 36-12-2776Nwmxyuihz Result EncounterGeneric External Data ProviderNOMS External Department UnsolicitedStart: 01-05-2025 End: 11-68-6724Gchorz outpatient visit 25 minutesPatricia Archer APRN.CNP Work Phone: CardiologyComment on above:Chronic a-fib (HCC) (Primary Dx); Primary hypertension; Aortic valve stenosis, etiology of cardiac valve disease unspecified; Coronary artery disease involving [place] coronary artery of [place] heart without angina pectorisStart: 01-05-2025 End: 30-74-6716vnuokikhxgOPENNOElizabeth ONTIVEROSFacility:[facility] Start: 12-21-2024 End: 43-16-0082Orwolpfide Ontiveros MD Work Phone: [facility] CI FM 100Start: 12-21-2024 End: 49-95-0557Imfvjzradha Ontiveros MD Work Phone: [facility] CI FM 100Start: 12-21-2024 End: 44-16-9286Mbrmdg outpatient visit 25 minutesAusten Ontiveros MD Work Phone: [facility] CI FM 100Comment on above:Syncope and collapse (Primary Dx); Longstanding persistent atrial fibrillation (HCC); Atherosclerosis of [place] coronary artery of [place] heart without angina pectoris ; Mild persistent asthma without complication (HCC); RBBB (right bundle branch block)Start: 12-21-2024 End: 99-59-4821fwzxzkdnjgOQYIGELiv Iyer AvailableStart: 11-27-2024 End: 91-59-8797auctjyxvxdAXPIHNElizabeth ONTIVEROSFacility:[facility] Start: 11-04-2024 End: 87-48-3396Epxvjgsre Catarina Goldberg MD Work Phone: CardiologyComment on above:syncopal episodeStart: 11-02-2024 End: 04-56-1366Rcfizd Matias Ontiveros MD Work Phone: [facility] CI FM 100Start: 11-02-2024 End: 88-64-6516Axadym flowsYousif Ontiveros MD Work Phone: [facility] CI FM 100Start: 11-02-2024 End: 54-12-3212Wsnhwk outpatient visit 15 minutesAusten Ontiveros MD Work Phone: [facility] CI FM 100Comment on above:Pneumonia of right lower lobe due to infectious organism (Primary Dx); Polypharmacy; BMI 22.0-22.9, adult; Mild persistent asthma without complication ([facility]/HCC)Start: 11-02-2024 End: 98-75-7830ciioqcngetJXKSTT J HEMEYERNot AvailableStart: 10-09-2024 End: 06-85-3012Clhfviqmo Result EncounterGeneric External Data ProviderNOMS External Department UnsolicitedStart: 10-09-2024 End: 34-37-8485Jmqkxzebs Result EncounterGeneric External Data ProviderNOMS External Department UnsolicitedStart: 10-09-2024 End: 49-83-6723vkptyrgkvwSVFZNT CHANFacility:[facility]. [facility] Hospitaltart: 10-09-2024 End: 07-13-1291Gohldf outpatient visit 40 minutesEver Goldberg MD Work Phone: CardiologyComment on above:Coronary artery disease involving coronary bypass graft of [place] heart without angina pectoris (Primary Dx); S/P AVR; Pulmonary hypertension (HCC); Paroxysmal A-fib (HCC); Chronic diastolic (congestive) heart failure (HCC); long-term (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 anticoagulantsStart: 07-29-2024 End: 96-05-3406vtpmngyxrqDfkxsun [facility] Work Phone: Start: 07-29-2024 End: 75-71-9324Drlkrbbo Yang Edge MD Work Phone: [facility] [place] Work Phone: Start: 07-23-2024 End: 36-73-4107Ooerltmof encounterEddonna Ontiveros MD Work Phone: [facility] CI FM 100Start: 07-14-2024 End: 85-92-8996Mzivyr flowsYousif Ontiveros MD Work Phone: [facility] CI FM 100Start: 07-14-2024 End: 65-67-7862Hgkpdf flowsYousif Ontiveros MD Work Phone: [facility] CI FM 100Start: 07-14-2024 End: 59-99-2368Wzcmgrt encounter procedureAusten Ontiveros MD Work Phone: noMS CI FM 100Comment on above:Neoplasm, uncertain whether benign or malignant; Changing skin lesion; Personal history of skin cancerStart: 07-14-2024 End: 19-59-6080ychrnlpphtQELTAH J HEMEYERNot AvailableStart: 06-18-2024 End: 81-37-3916Lehyoagln encounterLori Tingabby RNCardiologyStart: 06-15-2024 End: 57-61-5867msayikukunYHRAFC JOSEPH HEMEYERFacility:[facility] Start: 06-15-2024 End: 89-79-5885Yyirhjg encounter procedureDharmesh Bagley MD Work Phone: CardiologyComment on above:Atrial fibrillation, chronic (HCC) (Primary Dx)Start: 04-28-2024 End: 83-55-5730Hblbhv Matias Ontiveros MD Work Phone: [facility] CI FM 100Start: 04-28-2024 End: 70-24-5689Dymndu flowsYousif Ontiveros MD Work Phone: [facility] CI FM 100Start: 04-28-2024 End: 30-18-1489Lzmthaw encounter procedureAusten Ontiveros MD Work Phone: [facility] CI FM 100Comment on above:Neoplasm, uncertain whether benign or malignant; Changing skin lesion; Polypharmacy; BMI 22.0-22.9, adultStart: 04-07-2024 End: 07-81-8557Dobfpi flowsYousif Ontiveros MD Work Phone: [facility] CI FM 100Start: 04-07-2024 End: 14-28-4864Sjowky flowsheetAusten Ontiveros MD Work Phone: [facility] CI FM 100Start: 04-07-2024 End: 19-85-6934Amrtolc encounter procedureAusten Ontiveros MD Work Phone: [facility] CI FM 100Comment on above:Encounter for Medicare annual wellness exam (Primary Dx); Advance directive in chart; Encounter for screening for other disorder; Screening for alcohol problem; Postinflammatory pulmonary fibrosis (CMS/HCC); Mild persistent asthma without complication (CMS/HCC); Lung granuloma (CMS/HCC); Pulmonary hypertension (CMS/HCC); Atherosclerosis of [place] coronary artery of [place] heart without angina pectoris (CMS/HCC); Chronic diastolic heart failure (CMS/HCC); Bilateral carotid artery stenosis; Primary hypertension (CMS/HCC); Longstanding persistent atrial fibrillation (CMS/HCC); Abdominal aortic ectasia (CMS/HCC); Mixed hyperlipidemia (CMS/HCC); Changing pigmented skin lesionStart: 03-27-2024 End: 85-86-6798Rsfdnciet Result EncounterGeneric External Data ProviderNOMS External Department UnsolicitedStart: 03-27-2024 End: 43-14-4010Uwqbvxizr Result EncounterGeneric External Data ProviderNOMS External Department UnsolicitedStart: 03-19-2024 End: 68-66-6098Ghzayysrv encounterSgabriele Archer APRN.CNP Work Phone: CardiologyComment on above:Medication ProblemStart: 03-16-2024 End: 09-80-8951Lywfxbqtw encounterSgabriele Archer APRN.CNP Work Phone: Internal MedicineComment on above:OrdersStart: 03-16-2024 End: 61-34-2438Ylgwfb outpatient visit 15 minutesSareed Archer APRN.CNP Work Phone: CardiologyComment on above:Coronary artery disease involving coronary bypass graft of [place] heart without angina pectoris (Primary Dx)Start: 03-03-2024 End: 32-46-5843Rfuuuhvto Result EncounterGeneric External Data ProviderNOMS External Department UnsolicitedStart: 03-03-2024 End: 68-36-7616Bhniidnio Result EncounterGeneric External Data ProviderNOMS External Department UnsolicitedStart: 44-57-0792Yfdckoyga Catarina Goldberg MD Work Phone: CardiologyComment on above:covid exposure / questions Start: 11-15-2023 End: 91-81-7756Kxmigbd encounter procedureEye Measurements Work Phone: OphthalmologyComment on above:Combined forms of age- related cataract of right eyeStart: 11-15-2023 End: 36-50-3834Orcfwkvja to [place] [address] Work Phone: Pre AnesthesiaStart: 11-15-2023 End: 20-52-7075Mxywdeqxzb [place] [address] Work Phone: Pre AnesthesiaComment on above:Pre-operative clearance (Primary Dx); Chronic a-fib (HCC); Coronary artery disease involving [place] coronary artery of [place] heart with angina pectoris (HCC); Primary hypertension; Pure hypercholesterolemia; History of cardioversion; Permanent atrial fibrillation ([facility]); Aortic valve stenosis, etiology of cardiac valve disease unspecified; Pulmonary hypertension (HCC)Start: 11-15-2023 End: 70-04-4409Rqotxgkfzxaf [facility] 1 Work Phone: [facility] Work Phone: Start: 07-04-7027Toabntyfb Catarina Goldberg MD Work Phone: CardiologyComment on above:ResultsStart: 09-03-2023 End: 25-15-2579Vxiswct encounter procedureMary Senior MD Work Phone: OphthalmologyComment on above:Left posterior capsular opacification (Primary Dx); Pseudophakia, left eye; Combined forms of 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Start: 40-97-7239Dtexqzfdh Result EncounterGeneric External Data ProviderNOMS External Department UnsolicitedStart: 82-96-1424Vlxblcrku Result EncounterGeneric External Data ProviderNOMS External Department UnsolicitedStart: 08-09-2023 End: 12-03-7504pehnqdvvztYVWLLE CHANFacility:[facility] HospitalStart: 08-09-2023 End: 92-55-9682Bfkcfzs encounter Rui Goldberg MD Work Phone: CardiologyComment on above:S/P AVR (Primary Dx); Coronary artery disease involving [place] coronary artery of [place] heart with angina pectoris (HCC); Pulmonary hypertension (HCC); Chronic a-fib (HCC); Pure hypercholesterolemia; Other forms of dyspneaStart: 06-07-2023 End: 00-75-7154Gwqpwfr encounter procedureAmy Subramanian APRN.CNP Work Phone: CardiologyComment on above:Permanent atrial fibrillation (HCC) (Primary Dx); Essential hypertensionStart: 65-64-5959YilwokZfvktydv J Jacobs MD Work Phone: [phone] InstituteComment on above:Refill RequestStart: 41-11-2067ovavtmxnnaFkhmbl Chan MD Work Phone: CardiologyComment on above:20 mg rosuvastatinStart: 65-05-0818CerphnHgsujdoj J Jacobs MD Work Phone: CardiologyComment on above:Refill RequestStart: 10-09-2022 End: 69-18-6180sepeifvdckFG EDWARD HEMEYER .Facility:X0Kfqlv: 08-31-2022 End: 15-94-7603Bwjafzc encounter procedureDharmesh Bagley MD Work Phone: CardiologyComment on above:Chronic atrial fibrillation (HCC) (Primary Dx)Start: 07-10-2022 End: 74-16-7486ohkpxskoowHS AUSTEN ONTIVEROS .Facility:L6Eghvd: 06-16-2022 Encounter for preprocedural laboratory examinationDR ISHAAN [facility] HospitalStart: 06-13-2022 End: 10-97-6678tqsqluxrwrPpohbkf R NILLFacility:CD:[id number]: 06-09-2022 End: 42-62-5515qujauixduhCP ISHAAN DOWLING .Facility:I9Rozcc: 06-09-2022 End: 47-98-9589Bbrtbgcyh for preprocedural laboratory examinationDR ISHAAN DOWLING .Facility:N6Gryxs: 06-04-2022 End: 25-18-8539Wgtiwcg encounter Rui Goldberg MD Work Phone: CardiologyComment on above:Coronary artery disease involving [place] coronary artery of [place] heart with angina pectoris (HCC) (Primary Dx); S/P AVR (aortic valve replacement) bio; Pulmonary hypertension (HCC); Chronic a-fib (HCC); Pure hypercholesterolemiaStart: 05-22-2022 End: 25-75-4377vyzbshucafUejhhhu R NILLFacility: NorwalkStart: 05-22-2022 End: 33-17-2182Tousljp encounter procedureMichael R NILL 105-6805Bvihtb-GkeyyNationwide [facility] [place] Start: 15-86-6479Zttlwrkhh Juan Ontiveros MD Work Phone: [phone] InstituteComment on above:Patient QuestionStart: 56-86-0646jnjriydxetSribafi NILLFacility: MichaelkStart: 99-79-0261idqicjoxff Ishaan R NILLFacility: [place]vueStart: 04-25-2022 End: 41-06-5853dcyrtehioaPT AUSTEN ONTIVEROS .Facility:F5Tbgaz: 14-94-6351Bpyqgc Amy Subramanian APRN.CNP Work Phone: CardiologyComment on above:Refill RequestStart: 03-01-2022 End: 85-39-2299Docbdig encounter procedureDharmesh Bagley MD Work Phone: CardiologyComment on above:Atrial fibrillation, persistent (HCC) (Primary Dx)Start: 01-24-2022 End: 40-11-2810mcqwcjavbjML EDWARD HEMEYER .Facility:F5Wbpod: 01-18-2022 End: 39-90-6187Srdkkcw encounter procedureEver Goldberg MD Work Phone: CardiologyComment on above:Coronary artery disease involving [place] coronary artery of [place] heart with angina pectoris (HCC) (Primary Dx); Nonrheumatic aortic valve stenosis; S/P AVR (aortic valve replacement); Pulmonary hypertension (HCC); Atrial fibrillation, persistent (HCC); Chronic diastolic (congestive) heart failure (HCC)Start: 82-72-7160Khvmyxpjx encounterDharmesh Bagley MD Work Phone: CardiologyComment on above:Elevated HRStart: 39-74-0512gvcknrukylXH AUSTEN ONTIVEROS .Facility:W7Mqseo: 03-69-8112Gcspcgchp encounterDharmesh Bagley MD Work Phone: CardiologyComment on above:Care CoordinationStart: 05-29-2021 End: 34-28-8688Xzdjnae encounter statusPacc 1 Work Phone: [facility] Procedures DateProcedureProcedure DetailPerforming ClinicianStart: 23-11-2760Dtb routine ecg w/least 12 lds w/i&rGeneric External Data ProviderStart: 24-22-1783Pfsz tthrc r-t 2d w/wom-mode compl spec&colr Lexie Goldberg MD Work Phone: Start: 71-03-1346IBG CBC PNL BLD AUTOGeneric External Data ProviderStart: 43-37-1917BbwbrftxsjjijqvcyYdmjiqd External Data Provider Start: 03-04-2025 End: 64-58-1770Ass routine ecg w/least 12 lds w/i&rGeneric External Data ProviderStart: 58-22-8241WFS LIPID PROFILE (FASTING)Generic External Data ProviderStart: 86-31-3756Kel routine ecg w/least 12 lds w/i&rGeneric External Data ProviderStart: 53-93-0346Vpi routine ecg w/least 12 lds i&r onlyCcf ProviderStart: 43-26-3655AAK66Koisihv External Data ProviderStart: 07-14-2024 Level i surg pathology gross examination onlyAusten Ontiveros MD Work Phone: Start: 33-17-4082Akwdd i surg pathology gross examination onlyEddonna Ontiveros MD Work Phone: Start: 82-86-3322POL LIPID PROFILE (FASTING)Generic External Data ProviderStart: 28-09-3903IVF CMP (CMP) (FOR REMOTE CRITICAL ACCESS HOSPITAL USE)Generic External Data ProviderStart: 46-68-5294XcfrisgkegzbpxkpTszxfzi External Data ProviderStart: 09-24-2784IVY BIOMETRY W/ IOL CALC OD (RIGHT EYE)Mary Senior MD Work Phone: Start: 18-65-0892Mday-cataract laser surgeryMary Senior MD Work Phone: Start: 74-67-3819Vnvjxbcjmosy ophthalmic imaging retinaAijudson Senior MD Work Phone: Start: 64-37-9438QRP NT-PROBNP SERPL-MCNCGeneric External Data ProviderStart: 16-94-4374Pdw routine ecg w/least 12 lds i&r only Ccf ProviderStart: 18-70-1012Mqt routine ecg w/least 12 lds i&r onlyCcf Provider Start: 34-87-7741Xaaomeyyrgiq of tricuspid valveMichael NILL Start: 22-02-5057Tniwrkix artery bypass grafts x 3 Ishaan NILL Start: 14-85-8571Evsx procedureMichael NILL Start: 93-50-5842Szexoowwpco of aortic valveMichael NILL Start: 84-45-4854QqwfhxlwuujmtYlupssl NILL Start: 41-45-7488tnuqd palmar fasciectomy, two locations, thumb and ring finger basedMichael NILL Start: 71-02-1115JzsvdfoceyithPjnhyqb NILL Start: 13-13-0823XwtaupiqgskGjmkzcq NILL AppendectomyMichael NILL Cardiac ablation using fluoroscopy guidanceMichael NILL EXCISION LESION 1Michael NILL Comment on above:FOREHEADExtraction of cataractMichael NILL Intraocular lens implant (physical object)Ishaan NILL Tonsillectomy and adenoidectomyMichael NILL Plan of Treatment DateCare ActivityDetailAuthorStart: 61-09-4558Yealz microalbumin profile DTaP,Tdap,Td Vaccine (4 - Td or Tdap)[facility]: 33-17-5874Cvnetnun ScreeningDiabetes ScreeningSouthern [place] Medical Centertart: 82-44-5324FNFPP SCREENLIPID SCREENSouthern [place] Medical Centertart: 11-04-2026Medicare Annual Wellness (AWV)Medicare Annual Wellness (AWV)[facility] HealthcareStart: 12-91-4310Wqpmilhvm vaccination Influenza Vaccine (#1)[facility] HealthcareComment on above:Postponed from 03/08/2025 (Patient Refused)Start: 04-66-1638RP Controlled (<130/80)BP Controlled (<130/80) [facility]art: 06-30-2025 End: 82-08-3705Koibivk encounter tubczpitt56/24/2025 8:40 AM EST Office Visit Cardiology [address] [place] [address] [place] [address] [place], [place] [id number] Follow upCardiologyComment on above:Follow upStart: 06-10-2025 End: 15-44-9524Ceibejx encounter cxggdavwh93/04/2025 10:40 AM EST Office Visit Cardiology [address] [place] [address] [place] [address] [place] [address] Return in about 8 months (around 06/10/2025).CardiologyComment on above:Return in about 8 months (around 06/10/2025).Start: 05-17-2025 End: 96-57-6720Wvdlhtz encounter /10/2025 8:30 AM EST Office Visit Cardiology [address] [place] [address] Amy Subramanian APRN.DJ INSTRUCTOR [address] [place] [address] s/p ppmCardiologyComment on above:s/p ppmStart: 05-12-2025 End: 32-69-3927Yypzzfm encounter xvkyvmedt69/05/2025 10:30 AM EST Office Visit Cardiology [address] [place] [address] Coronary artery disease involving coronary bypass graft of [place] heart without angina pectoris [I25.810]CardiologyComment on above:Coronary artery disease involving coronary bypass graft of [place] heart without angina pectoris [I25.810]Start: 05-11-2025 End: 34-92-6693TRP Skeletal system Views for bone densityDEXA bone density Imaging Routine Osteopenia of neck of right femur Screening for osteoporosis Expected: 05/11/2025, Expires: 05/11/2026[facility] Work Phone: Comment on above:Expected: 05/11/2025, Expires: 05/11/2026Start: 05-11-2025 End: 26-23-5608Pryecqr encounter procedureNOMS [facility] Family MedicineComment on above:Encounter for Medicare annual wellness exam; Advance directive in chart; Encounter for screening for other disorder; Screening for alcohol problem; PolypharmacyStart: 04-08-2025 End: 30-95-1140Ynjpiod encounter ekbyqscdh44/02/2025 8:00 AM EDT Office Visit [facility] [place] [address] [facility] 112 [facility] [address] [place] [address] Austen Ontiveros MD 112 [facility] [address] [place] [address] (Fax)[facility] [place] [address] [facility] MedicineStart: 10-01-2025Medicare Annual Wellness (AWV)Medicare Annual Wellness (AWV)[facility] HealthcareStart: 03-22-2025 End: 20-54-6928Ssdmbbc encounter dpezlgjkw19/15/2025 2:00 PM EDT Office Visit Cardiology [address] [place] [address] S/P PPM IMPLANTCardiologyComment on above:S/P PPM IMPLANTStart: 03-12-2025 End: 87-30-3606Rnxivqsqt to same day surgery ipdwxk3903/12/2025 7:30 AM EDT - 03/12/2025 9:31 AM EDT Surgery [facility] [address] [place] [address] [place] [address] [place] [address] (NEW IMPLANT SINGLE CHAMBER PPM) INSERTION OF A NEW PERMANENT PACEMAKER W/ INSERTION OF NEW TRANSVENOUS ELECTRODE VENTRICLEFAIRVIEW EP LABComment on above:(NEW IMPLANT SINGLE CHAMBER PPM) INSERTION OF A NEW PERMANENT PACEMAKER W/ INSERTION OF NEW TRANSVENOUS ELECTRODE VENTRICLEStart: 03-12-2025 End: 62-59-5045Yrt new/rplc prm pacemaker w/transv eltrd ventr(NEW IMPLANT SINGLE CHAMBER PPM) INSERTION OF A NEW PERMANENT PACEMAKER W/ INSERTION OF NEW TRANSVENOUS ELECTRODE VENTRICLE Bradycardia 03/12/2025 7:30 AM EDTFV EPStart: 78-89-8729Vxobszvnbs hospital visit by wjcajtanc19/05/2025 7:30 AM EDT Hospital Encounter [facility] [address] [place] [address] [place] [address] [place] [address] Bradycardia [R00.1][facility] EP LABComment on above:Bradycardia [R00.1] Start: 60-10-3993Sjjycdrge vaccinationST. MARK'S HOSPITAL HealthcareStart: 02-01-2025 End: 13-06-3895Ueonktn encounter /28/2025 4:00 PM EDT Office Visit [facility] [place] [address] Family Medicine 112 [facility] 100 [place] [address] Austen Ontiveros MD [address] [facility] 100 [place] [address] (Fax) [facility] 100 [facility]’S HospitalComment on above:ArrivedStart: 29-74-1219ARYWJOFC SCREENDIABETES SCREEN [facility]ertart: 35-03-4764Iwgmbndx ScreeningDiabetes ScreeningSouthern [facility] Medical Centertart: 01-05-2025 End: 40-56-1679Qzvru 1996 panel - Serum or PlasmaLIPID PANEL, FASTING Lab Routine Coronary artery disease involving [place] coronary artery of nativeheart without angina pectoris Expected: 01/05/2025, Expires: 2025leveland ClinicComment on above:Expected: 01/05/2025, Expires: 2025Start: 12-21-2024 End: 82-21-1107Pjkdzji encounter vnmplnooe80/16/2025 1:45 PM EDT Office Visit [facility] 112 [facility] 100 [place] [address] Austen Ontiveros MD [address] [facility] [address] [place] [address] (Fax) Syncope and collapseNOMS CI FM 100Comment on above:Syncope and collapseStart: 12-07-2024 End: 89-48-7077Fzutzzy encounter yysuqxdvf51/02/2025 8:00 AM EDT Office Visit Cardiology [address] [place] [address] Ladarius Beatty PA-C [address] [place] [address] Patient needs appt with MAYANK in [place] per Dr. Goldberg CardiologyComment on above:Patient needs appt with MAYANK in [place] per Dr. Goldberg Start: 11-08-2024 End: 68-11-2235Hdofmwbeart peptide.B prohormone N-Terminal [Mass/volume] in Serum or PlasmaNT PRO BNP Lab Routine Pulmonary hypertension (HCC) Chronic diastolic (congestive) heart failure (HCC) Expected: 11/08/2024, Expires: 02/07/2025levelatrium health carolinas rehabilitation charlotte ClinicComment on above:Expected: 11/08/2024, Expires: 02/07/2025Start: 11-02-2024 End: 38-17-1879Xximoym encounter ifauwkwda22/28/2025 11:45 AM EDT Office Visit [facility] [address] [place] [address] Austen Ontiveros MD [address] [place] [address] (Fax) ArrivedNOMS CI FM 100Comment on above: ArrivedStart: 10-09-2024 End: 80-81-4817Jfiobtx encounter xxybrkmbe93/04/2025 10:00 AM EDT Office Visit Cardiology [address] [place] [address] [place] [address] [place] [address] Follow upCardiologyComment on above:Follow upStart: 09-02-2024 End: 05-30-9477LJM BIOMETRY W/ IOL CALC OD (RIGHT EYE)IOL BIOMETRY W/ IOL CALC OD (RIGHT EYE) OPHT Imaging Routine Combined forms of age-related cataractof right eye Expected: 09/02/2024, Expires: 02/24/2025[facility] Work Phone: Comment on above:Expected: 09/02/2024, Expires: 02/24/2025Start: 78-79-4208KL Controlled (<130/80)BP Controlled (<130/80) [facility]: 64-54-4537Whkjndegh B surface antibody levelLDL CholesterolSouthern Ohio Medical Centertart: 07-14-2024 End: 50-01-5502Uijajkl encounter gaypgojcf14/07/2025 2:00 PM EST Office Visit [facility] [address] [place] [address] Austen Ontiveros MD [address] [facility] [address] [place] [address] Neoplasm, uncertain whether benign or malignant; Changing skin lesion; Personal history of skin cancerNOMS CI FM 100 Comment on above:Neoplasm, uncertain whether benign or malignant; Changing skin lesion; Personal history of skin cancerStart: 87-27-3631Dusuffl Directive Discussion Advance Directive DiscussionSouthern [facility] Medical Centertart: 47-17-7545JWQGYUQS SCREEN DIABETES SCREENSouthern [place] Medical Centertart: 06-15-2024 End: 00-09-6084Oltohrt encounter kiozzpnuw14/09/2024 9:20 AM EST Office Visit Cardiology [address] [place] [address] [place] [address] [place] [address] Return in about 1 year (around 06/07/2024) for Dr. Bagley . CardiologyComment on above:Return in about 1 year (around 06/07/2024) for Dr. Bagley .Start: 33-02-9050Rkrroxesx vaccinationInfluenza Vaccine (#1)NOMS HealthcareComment on above:Postponed from 03/08/2024 (Patient Refused)Start: 04-28-2024 End: 73-31-8081Klvtze examNOMS Healthcare Work Phone: Comment on above:Expected: 04/28/2024 (Approximate), Expires: 04/28/2025Start: 04-28-2024 End: 83-32-5918Dofqznm encounter procedureNOMS CI FM 100Comment on above: Neoplasm, uncertain whether benign or malignant; Changing skin lesion; Polypharmacy; BMI 22.0-22.9, adultStart: 04-07-2024 End: 43-90-9903Tjgiljy encounter procedureNOMS CI FM 100Comment on above: Encounter for Medicare annual wellness exam; Advance directive in chart; Encounter for screening for other disorder; Screening for alcohol problemStart: 03-19-2024 End: 41-30-3116HYB panel - Blood by Automated countCOMPLETE BLOOD COUNT Lab Routine 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 Expected: 03/19/2024, Expires: 06/18/2024[facility] Work Phone: Comment on above:Expected: 03/19/2024, Expires: 06/18/2024Start: 03-16-2024 End: 69-06-8438Sdsllxqbmkahg metabolic 2000 panel - Serum or PlasmaCOMPREHENSIVE METABOLIC PANEL Lab Routine Coronary artery disease involving coronary bypass graft of [place] heart without angina pectoris Expected: 03/16/2024, Expires: 06/15/2024[facility] HospitalComment on above:Expected: 03/16/2024, Expires: 06/15/2024Start: 03-16-2024 End: 96-29-4529Ainut 1996 panel - Serum or PlasmaLIPID PANEL BASIC Lab Routine Coronary artery disease involving coronary bypass graft of [place] heart without angina pectoris Expected: 03/16/2024, Expires: 06/15/2024[facility] Work Phone: Comment on above:Expected: 03/16/2024, Expires: 06/15/2024Start: 77-23-6972Xyrvy-19 Vaccine ()Covid-19 Vaccine ()[facility]: 24-02-7224Dtmgo-19 Vaccine ()Covid-19 Vaccine ()[facility]: 58-75-1954Ziqqyaeww vaccinationInfluenza Vaccine (#1)[facility]: 02-17-2024 End: 83-79-7162Azzzhlq encounter procedureCardiologyComment on above:6 mo follow upStart: 02-03-2024 End: 43-43-0651Kapipgk encounter mddmzgrif67/29/2024 8:50 AM EDT Office Visit Cardiology [address] [place] [address] Echo just prior to next visitCardiologyComment on above:Echo just prior to next visit Start: 06-28-2024Medicare Annual Wellness (AWV)Medicare Annual Wellness (AWV) [facility] HealthcareStart: 11-27-2023 End: 18-30-7372Roupejual to same day surgery dpwseh8911/27/2023 1:20 PM EDT - 11/27/2023 1:50 PM EDT Surgery Ambulatory Surgery [address] [facility] [place] [address] Mary Senior V, MD [address] [facility] [place] [address] PHACOEMULSIFICATION CATARACT IMPLANT INTRAOCULAR LENS W/O ENDOSCOPIC CYCLOPHOTOCOAGULATIONAmbulatory Surgery Comment on above:PHACOEMULSIFICATION CATARACT IMPLANT INTRAOCULAR LENS W/O ENDOSCOPIC CYCLOPHOTOCOAGULATIONStart: 11-27-2023 End: 08-29-3327Cvm bmtry prtl coher intrfrmtry io lens pwr calOPHTHALMIC BIOMETRY BY PARTIAL COHERENCE INTERFEROMETRY W/INTRAOCULAR LENS POWER CALCULATION Combined forms of 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 11/27/2023 1:20 PM EDTMC [facility] LORAINStart: 20-57-1817Kuzjnnthjy hospital visit by physician 11/27/2023 1:20 PM EDT Hospital Encounter Ambulatory Surgery [address] [facility] [place] [address] Mary Senior V, MD [address] [place] [address] Combined forms of 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 [H25.811]Ambulatory SurgeryComment on above: Combined forms of 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 [H25.811]Start: 11-27-2023 End: 78-24-9053Wmzwht ctrc rmvl insj io lens prosth w/o ecpPHACOEMULSIFICATION CATARACT IMPLANT INTRAOCULAR LENS W/O ENDOSCOPIC CYCLOPHOTOCOAGULATION Combined forms of 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 11/27/2023 1:20 PM [facility] VAZQUEZ PERALES Start: 59-08-6419Msvefch Directive DiscussionAdvance Directive Discussion [facility]: 29-87-7608Ypwhcmyepc Health ScreeningBehavioral Health ScreeningSouthern [place] Medical Centertart: 93-75-4296Qeikjzxhkj AssessmentDepression AssessmentSouthern [facility] Medical Centertart: 65-92-6813Rkhuu-19 Vaccine () Covid-19 Vaccine ()[facility]: 51-55-5498Rnihclvro vaccinationSouthern [place] Medical Centertart: 27-95-4175Qpfaqqxod B surface antibody level LDL CHOLESTEROLSouthern [place] Medical Centertart: 12-02-2022 End: 21-68-7481Xtlrz 1995 panel - Serum or PlasmaLIPID PANEL BASIC Lab Routine Coronary artery disease involving [place] coronary artery of [place] heart with angina pectoris (HCC) Pure hypercholesterolemia Expected: 12/02/2022, Expires: 02/01/2023[facility] Work Phone: Comment on above:Expected: 12/02/2022, Expires: 02/01/2023Start: 95-07-9730OWXIV-19 VACCINE (5 - Moderna series)COVID-19 VACCINE (5 - Moderna series)[facility]: 88-34-7428RKKGUZJ DIRECTIVE DISCUSSIONADVANCE DIRECTIVE DISCUSSIONSouthern [place] Medical Centertart: 07-08-2022 DEPRESSION ASSESSMENTDEPRESSION ASSESSMENTSouthern [place] Medical Centertart: 03-08-2022 Influenza vaccinationINFLUENZA (#1)[facility]: 01-18-2022 End: 40-21-7123Bnnou 1995 panel - Serum or PlasmaMemorial Health System Work Phone: Comment on above:Expected: 01/18/2022, Expires: 03/20/2022tart: 99-57-8925MTTIQ-19 VACCINE (4 - Booster for Moderna series) COVID-19 VACCINE (4 - Booster for Moderna series)[facility]: 91-01-4268LDRADAQ DIRECTIVE DISCUSSIONADVANCE DIRECTIVE DISCUSSIONSouthern [place] Medical Centertart: 98-91-8079SKTEMXIUTV ASSESSMENTDEPRESSION ASSESSMENTSouthern [place] Medical Centertart: 99-78-1289EIYEM-19 VACCINE (4 - Booster for Moderna series)COVID-19 VACCINE (4 - Booster for Moderna series)[facility]: 08-00-0978INGBU- 19 VACCINE (2 - Moderna 3-dose series)COVID-19 VACCINE (2 - Moderna 3-dose series)[facility]: 44-73-8656ZDOGG-19 VACCINE (2 - Moderna series) COVID-19 VACCINE (2 - Moderna series)[facility]: 00-54-0061Zczlg microalbumin profileDTAP,TDAP,TD (2 - Tdap)[facility]: 2011 PNEUMOVAX AGE 65 AND OVER WITH 5YR LOOKBACK (#1)PNEUMOVAX AGE 65 AND OVER WITH 5YR LOOKBACK (#1)[facility]: 09-01-2011Medicare Annual Wellness Visit Medicare Annual Wellness VisitSouthern Ohio Medical Centertart: 10-19-2342OTANPETN VACCINE (1 of 2)SHINGRIX VACCINE (1 of 2)[facility]: 78-20-0484RLJXMCDGN (FIT-DNA)COLOGUARD (FIT-DNA)[facility]: 08-32-7281Gjgkwcfedxt COLONOSCOPYSouthern [place] Medical Centertart: 08-94-0879KGMQXPNHCJ CANCER SCREENING COLORECTAL CANCER SCREENINGSouthern [place] Medical Centertart: 28-39-2316QE COLONOGRAPHYCT COLONOGRAPHYSouthern [place] Medical Centertart: 32-39-9348XQVJH OCCULT BLOODFECAL OCCULT BLOODSouthern [facility] Medical Centertart: 12-22-8730ZIKAPETRUPKSKENJRBMJOOSLWKXajijvpul Clinic Start: 62-48-6246CYHBI SCREENLIPID SCREENSouthern [place] Medical Centertart: 62-48-4249LBCWTU PCP TEAM CHRONIC DISEASE VISITANNUAL PCP TEAM CHRONIC DISEASE VISITSouthern [place] Medical Centertart: 48-77-5226Ttqvbzu ScreeningAnxiety ScreeningSouthern [place] Medical Centertart: 88-49-2246AZ CONTROLLED (<130/80)BP CONTROLLED (<130/80)[facility]: 95-09-1666Wdnwunudjn ScreeningDepression ScreeningSouthern [facility] Medical Centertart: 34-68-9147Yztdobnyr B surface antibody levelLDL CHOLESTEROLTwin City Hospital Start: 51-23-9449AKLRWLAFH C SCREENINGHEPATITIS C SCREENINGTwin City Hospital Start: 73-69-3827Quscuolqz C screeningHepatitis C ScreeningTwin City Hospital Start: 64-07-0468Deonh depression screening assessmentDEPRESSION SCREENING [facility]art: 70-37-8404STNWVCCPCMAI: 65+ (1 - PCV)PNEUMOCOCCAL: 65+ (1 - PCV)[facility] City HospitalCORNEAL TOPOGRAPHY PENTACAM OD (RIGHT EYE)CORNEAL TOPOGRAPHY PENTACAM OD (RIGHT EYE) OPHT Imaging Routine Combined forms of age- related cataract of right eye 09/03/2023 3:07 PM [facility] Work Phone: End: 77-91-4357UZL COMPLETEECG COMPLETE ECG Routine Chronic atrial fibrillation (HCC) 1 Occurrences starting 08/31/2022 until 08/31/2023[facility] Work Phone: Comment on above:1 Occurrences starting 08/31/2022 until 08/31/2023ECG COMPLETEECG COMPLETE ECG 08/31/2022 8:38 AM [facility]EC[facility]TEMem[facility] Work Phone: Comment on above:Ordered: 06/07/2023ECG COMPLETE [facility] Work Phone: Comcbmu on above:Ordered: 10/09/2024ECG COMPLETEECG COMPLETE ECG Routine Chronic a-fib (HCC) Primary hypertension Aortic valve stenosis, etiology of cardiac valve disease unspecified Ordered: 01/05/2025 [facility] Work Phone: Comment on above:Ordered: 01/05/2025 End: 10-66-3151EfreiupctftruxqzHDSY Cardiology Routine S/P AVR Pulmonary hypertension (HCC) 1 Occurrences starting 08/09/2023 until 08/09/2024[facility] Work Phone: Comment on above:1 Occurrences starting 08/09/2023 until 08/09/2024 End: 35-69-7670GozjqgehloacsupaQAKE Cardiology Routine Coronary artery disease involving coronary bypass graft of [place] heart without angina pectoris S/P AVR Pulmonary hypertension (HCC) 1 Occurrences starting 10/09/2024 until 10/09/2025 [facility] HospitalComment [facility] above:1 Occurrences starting 10/09/2024 until 10/09/2025OUTSIDE VENDOR CARDIAC OUTPATIENT EXTENDED RHYTHM RECORDING (WITHOUT TELEMETRY)OUTSIDE VENDOR CARDIAC OUTPATIENT EXTENDED RHYTHM RECORDING (WITHOUT TELEMETRY) Holter Routine Heatsyncope, initial encounter Coronary artery disease involving coronary bypass graft of [place] heart without angina pectoris Ordered: 11/04/2024[facility] Work Phone: Comment on above:Ordered: 11/04/2024[facility] Immunizations Immunization DateImmunizationNotesCare VsxejslbHvdvrmbs26-96-5151rjclffllr, high dose seasonal, preservative-freeAusten Ontiveros MD Work Phone: [facility] HospitalWkfbvniear58-13-7234voouxdtqk virus vaccine, unspecified formulationSgabriele Archer APRN.CNP Work Phone: [facility] HospitalHoyxuq03-41-0185XUWCWBJ - Respiratory syncytial virus (RSV), vaccine, bivalent, protein subunit RSV prefusion F, dil uent reconstituted, 0.5 mL, PFGeneric [facility]11-09-2023 Influenza, Seasonal, Quadrivalent, AdjuvantedGeneric [facility] 54-69-7948yjqonsabr virus vaccine, unspecified formulationEver Estrada MD Work Phone: [facility] HospitalZvnifg10-67-2080riylzgnex virus vaccine, unspecified formulationGeneric [facility] HealthRhunozjlwz30-53-7302raksfmjaq virus vaccine, unspecified formulationGeneric [facility] HealthWehrdxffne68-20-0749Rrdcttq Bivalent Booster VaccinationGeneric [facility] HealthOwmrwqhrci62-39-7209uxwjkrk toxoid, reduced diphtheria toxoid, and acellular pertussis vaccine, adsorbed Generic [facility] HealthBbowvslnpu76-63-9870hyvtsmatt, high dose seasonal, preservative-freeGeneric [facility] HealthDztrlwzxcx44-09-5349lxvszpkjg virus vaccine, unspecified formulationSt. [facility]03-05-2021Moderna SARS-CoV-2 VaccinationSt. [facility] Institute02-05-2021Moderna SARS-CoV-2 VaccinationSt. [facility] Behavioral [facility] Institute10-09-2020influenza, injectable, quadrivalent, preservative freeSt. [facility] 14-11-1460Juwoxwzfw, Seasonal, Quadrivalent, AdjuvantedGeneExcelsior Springs Medical CenterQezepwahvb22-91-1820yueoimtok virus vaccine, unspecified formulationSt. [facility]10-26-2019influenza, high dose seasonal, preservative-freeSt. [facility]10-26-2019Influenza, High-dose Seasonal, Quadrivalent, Preservative FreeMercy Health St. Charles Hospitalric [facility] 15-45-0860wpvwlgmgh virus vaccine, unspecified formulationSt. [facility]11-02-2018influenza, high dose seasonal, preservative-freeDharmesh Bagley MD Work Phone: [facility] Work Phone: [phone]xpvihj, injectable, quadrivalent, preservative freeSt. [facility] Institute10-14-2018influenza virus vaccine, unspecified formulationDharmesh Bagley MD Work Phone: [facility] Work Phone: [phone]fzqpgo polysaccharide vaccine, 23 valentSt. Louis Behavioral Medicine Institute06-19-2018zoster vaccine, liveGeneric [facility] HealthHhypswohvo75-16-6103mjrbys vaccine recombinantSt. [facility] Institute04-20-2018zoster vaccine, liveSt. [facility] 15-77-5918mbwdlq vaccine recombinantSt. [facility] Institute10-05-2017 influenza, injectable, quadrivalent, preservative freeSt. Louis Behavioral Medicine InstituteCwrqniufsb07-10-7040bhvotcpctkjj conjugate vaccine, 13 valentGeneric [facility] HealthcareJlusxcwajv84-02-5434gqnpttaak, seasonal, injectable, preservative free Generic [facility] HealthBgntfmgkwg09-54-6481yyeosvouaahp polysaccharide vaccine, 23 valentGeneExcelsior Springs Medical Center03-10-2015zoster vaccine, liveGeneric [facility] HealthLyzphbnggm36-19-4889usirbtwgp virus vaccine, unspecified formulationMercy Health St. Charles Hospitalric [facility] HealthPnkhbaxrgh27-91-4853eefzwbomctqm polysaccharide vaccine, 23 valentGeneric [facility] HealthWlyjehzlta32-24-1950krmiingsjdyk vaccine, unspecified formulationMercy Health St. Charles Hospitalric [facility] HealthCcbtwdcocb94-88-3450ekoewgou influenza, intradermal, preservative freeGeneric [facility] 05-20-2195ewiaytqlwi, tetanus toxoids and acellular pertussis vaccineMercy Health St. Charles Hospitalric [facility] HealthWscfhdipte05-77-5488sofnyatmlf, tetanus toxoids and acellular pertussis vaccine, unspecified formulationDharmesh Bagley MD Work Phone: [facility] Work Phone: [phone]tcq toxoid, reduced diphtheria toxoid, and acellular pertussis vaccine, adsorbedGeneric [facility] 01-02-7458vgddh fakxkvcrq-O0U0-48, preservative-free, injectableGeneric Provider [facility] Healthcare Payers DatePayer CategoryPayerPolicy [id number] Health [id number] O MEDICARE SUPPLEMENT [id number] 2019-Present [phone] [address] [place] [address] [id number] [id number]8-2739Glexzlw 1.2.840.377876.1.13.159.2.7.3.623981.315 [id number] 1.2.840.533984.1.13.159.2.7.3.132388.315 2011Medicare 1.2.840.53[id number] [id number] 1960 [id number] 2.16.840.1.065536.3.579.2.[id number] 2.16.840.1.787631.3.579.2.01132-53-0761Jtylwqx38458670 2.16.840.1.504189.3.579.2.48859-34-7937Dyeujnq6889781 2.16.840.1.626291.3.579.2.15916-70-3361Cescfcn2298089 2.16840.1.536962.3.579.2.05931-65-2663Yuhinpm1847896 2.16840.1.249491.3.579.2.64267-34-1812Wzrmdls1646649 2.16.840.1.658547.3.579.2.13141-84-0270Ehacnrs6434998 2.16840.1.170776.3.579.2.87589-68-6717Lbdgede54306671 2.16840.1.414184.3.579.2.728893-46-1046Liehbhb87532948 2.16840.1.249204.3.579.2.075577-22-1886Gtsuuyk67882854 2.16840.1.668308.3.579.2.706011-66-0302Svxutrr5475164 2.16840.1.242956.3.579.2.242244-53-2323Vpxisdz6528901 2.16840.1.215247.3.579.2.8266Ukabgxi4909846 2.16840.1.937400.3.579.2.593 Fiwgyer7505442 2..840.1.705340.3.579.2.773Jauhtnh80098571 2.16.840.1.195775.3.579.2.531 Social History DateTypeDetailFacilityStart: 05-18-2013 End: 27-29-9253Nturzim smoking status NHISNever smoked tobaccoTwin City Hospital Start: 05-18-2013 End: 57-94-3440Syomwyn use and exposureSmokeless tobacco non-userSouthern [facility] Medical Centertart: 08-23-2021 End: 71-65-3083Yyumzbp intakeCurrent drinker of alcohol (finding)[facility]ertart: 65-22-2073Jlaxtat SDOH Alcohol Commentrare beer after mowing lawn in summerSouthern Ohio Medical Centertart: 22-38-8914Odc Assigned At BirthNot on file [facility]: 09-07-3092Fiy [facility] ClinicStart: 01-08-2022 End: 46-73-4834Tlgsbygh to SARS-CoV-2 (event)Not sureSouthern Ohio Medical Centertart: 05-13-2013 End: 72-82-5573Wrwzwik smoking statusNeCorey Hospital General Surgery Normemorial sloan kettering cancer centerkStart: 02-11-2023 End: 57-15-3389Zxb [facility]igned At [facility] Companytart: 02-11-2023 End: 61-48-4360Tbpgvpu of Social functionNOMS HealthcareStart: 34-81-9844Newksg identityIdentifies as male gender (finding)[facility]: 01-13-2022 Sexual orientationHeterosexual (finding)[facility]ertart: 06-12-2023 End: 09-33-8722Jqtuenq intakeEx-drinker (finding)[facility]S HealthcareWithin the last year, have you been afraid of your partner or ex-partner?NoNOMS HealthcareDo you belong to any clubs or organizations such as religious groups, unions, fraternal or athletic groups, or school groups?YesNOMS HealthcareAre you now , , , , never or living with a partner?MarriedNOMS HealthcareHow often to you have a drink containing alcohol?NeverNOMS Healthcare Do you feel stress - tense, restless, nervous, or anxious, or unable to sleep at night because yourmind is troubled all the time - these days [OSQ]Not at all [facility](I/We) worried whether (my/our) food would run out before (I/we) got money to buy more.Never trueNOMS HealthcareStart: 95-57-3968Bdcezexzv90SRWD HealthcareStart: 01-02-0527Fngpvva CommentCaffeine intake: 3 cups decaf per day NOMS HealthcareTobacco smoking status NHISUnknown if ever smokedFisher-Titus Medical Center Work Phone: Start: 44-43-5085KsjSijv (finding)[facility] Medical Equipment Procedure CodeEquipment CodeEquipment Original TextEquipment IdentifierDatesClip Atriclip Gillinov-Minerva 180d Long 45mm 25mm Internal Head - [id number]: 40-04-6276Aihq Thk1.65mm Ptfe 4x.5in Cardiovascular Sterile - [id number]_buvArrgh: 31-66-6098Mnlx Hernandez Mc3 32mm Titanium Silicone Rubber Polyester Annuloplasty 1 - [id number]_slzJerkx: 74-39-2973Oyrns Hernandez Inspiris Resilia 25mm Pericardial Aortic Bioprosthesis - [id number]: 73-69-2978Jayebjy on above:Description: phhYe24qk.230 [facility] - [id number]_sxsLuxzx: 44-86-9234Fqgtakr on above:Description: -0.15 Goals DatePatient GoalDesired Activity/StatePersonal health goalPersonal health goal Functional Status UkqhUpfjeysepzHzutwqEfibrboq84-78-3599Urhotm interest or pleasure in doing thingsNot at all 04/04/2025 12:33 PM Deanna Fitzgerald Not at [facility] HealthcareIaamukihgw00-94-5815Kntlgwp down, depressed, or hopelessNot at all 04/04/2025 12:33 PM EDT Deanna Verduzco Not at [facility] HealthcareRxodxeorqn05-90-1854Hvhgeiv Health Questionnaire 2 item (PHQ-2) [Reported][facility] HospitalLnevquimnz36-50-1967Gyflgzt Health Questionnaire 2 item (PHQ-2) [Reported][facility] HospitalCmgubmeozs19-97-6550Ukyvhlcqai StatusN/AFvigrenKettering Health General Surgery Umbazsg61-85-7769Wvl you deaf, or do you have serious difficulty hearingNo 06/30/2021 12:10 PM Clara Leong RN [facility] Efymxg41-52-1068Dyp you blind, or do you have serious difficulty seeing, even when wearing glassesNo 06/30/2021 12:10 PM Clara Leong RN [facility] Ptxdaw14-83-7244Fi you have serious difficulty walking or climbing stairsNo 06/30/2021 12:10 PM Clara Leong RN NoCKeenan Private HospitalOicgds11-24-4945Bm you have difficulty dressing or bathingNo 06/30/2021 12:10 PM Clara Leong RN [facility] 88-48-1556Bgjjapk of a physical, mental, or emotional condition, do you have difficulty doing errands alone such as visiting a physician's office or shopping No 06/30/2021 12:10 PM Clara Leong RN [facility] Mental Status WorvMvsdmlrvpoIptqxtAksnhelc11-86-2875Ivhtikp of a physical, mental, or emotional condition, do you have serious difficulty concentrating, remembering, or making decisionsNo 06/30/2021 12:10 PM Clara Leong RN No [facility] Clinical Notes 06-20-2021 to 05-17-2025 Note Date & OajwTxatGwilfwse85-97-2155 NoteHNO ID: [id number] Author: AMY SUBRAMANIAN APRN.CARMEN Service: ? Author Type: Nurse Practitioner Type: Progress Notes Filed: 05/17/2025 08:40 Note Text: [facility] [place] [facility] Department of Cardiovascular Medicine SECTION OF CARDIAC PACING and ELECTROPHYSIOLOGY OUTPATIENT VISIT DATE May 16, 2025 OUTPATIENT VISIT TYPE ESTABLISHED Recording using ambient Braclet software for draft documentation of the visit was discussed with the patient/authorized telemarketing representative; all questions welcomed and answered. Patient/authorized telemarketing representative agreed to proceed PRIMARY CARE PHYSICIAN: Austen Ontiveros MD [address] [place] [address] [address] [place] [address] CHIEF COMPLAINT: follow up permanent atrial fibrillation, s/p pacemaker (single lead) HISTORY OF PRESENT ILLNESS: Mr. Torres is a 80 year old male who presents today for evaluated by Dr. Goldberg, Dr. Bagley, Dr. Hines permanent atrial fibrillation, s/p single lead pacemaker (h/o sx syncope, 03-15-25, medtronic, LBB lead), preserved LV systolic heart function (echo: 03-12-25: EF 57%), CAD s/p CABG x3 (2020: PECK/LAD, SVG/PDA, left radial to OM1, tricuspid valve repair, s/p AVR inspiris valve, left atrial clip, cryo maze), Other PMH of hypertension, dyslipidemia, residential anticoagulation. Last visit with MAYANK monitor worn [...] after first dose) Coronary artery disease involving [place] coronary artery of [place] heart with angina pectoris 06/2021 s/p CABG [...] ECHO) 07/08/2006 TONSILLECTOMY AND ADENOIDECTOMY SOCIAL HISTORY SOCIAL HISTORY[1] FAMILY HISTORY Problem [...] 1 tablet by mouth every other day. Patient should start on March 26, 2025. [...] VITAMIN ORAL) Take by mouth once daily. [place]-3 Fatty Acids-Vitamin E 1,000 mg cap Take [...] NEUROLOGIC/PSYCHIATRIC: Negative for: Weakness, Paralysis, Numbness, Tingling, Javier (more content not included)...[facility]11-04-2025 History of Present illness Narrative* Austen Ontiveros MD - 05/11/2025 8:00 AM EST Images from the original note were not included. Britta Torres is a 80 y.o. male presents with chief complaint of Annual Exam HPI: History of Present Illness I have reviewed and reconciled the history and medication list with the patient today. 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 Hearing Screening: Yes, uses hearing aids Cognitive Screening Self Assessment: No concerns rasied by family members, friends, or caretakers Three Word Registration: River, Nation, Finger Clock Drawing: Normal Clock - 2 Three Word Recall: 2/3 words correct - 2 Total Score (0-5 Points): 4 Pain Assessment Pain Score: 0 - No pain HISTORIES: PAST MEDICAL HISTORY: Past Medical History: Diagnosis Date A-fib (HCC) 05/2013 Acute right-sided low back pain with right-sided sciatica Asthma (HCC) Asthma exacerbation (HCC) Atrial fibrillation (HCC) Cardiovascular event risk Cataract Current chronic use of inhaled steroid Elevated ratio of cholesterol to high density lipoprotein Encounter for therapeutic drug monitoring Essential hypertension, benign Hyperlipidemia Hypertension Mixed hyperlipidemia Osteoarthritis Spondylosis of unspecified site without mention of myelopathy Statin intolerance Undiagnosed cardiac murmurs SURGICAL HISTORY: Past Surgical History: Procedure Laterality Date ABLATION 2013 cardio ablation APPENDECTOMY CARDIAC VALVE REPLACEMENT CARDIOVERSION 2012, 09/2015 CATARACT EXTRACTION Left 08/2019 COLONOSCOPY 2009 CORONARY ARTERY BYPASS GRAFT 06/19/2021 CABG x3 (PECK-LAD, Vein PDA, left radial artery OM1), bilateral maze procedure, Hernandez MC3 annuloplasty of the tricuspid valve, [facility] Dr. Mosquera CT ANGIOGRAM HEART CORONARY 03/23/2021 CT ANGIOGRAM HEART CORONARY 03/23/2021 INSERT / REPLACE / REMOVE PACEMAKER 03/12/2025 [employer] Serial #[id number] OTHER SURGICAL HISTORY [facility] SOCIAL HISTORY: Social History Tobacco Use Smoking status: Never Smokeless tobacco: Never Vaping Use Vaping status: Never Used Substance Use Topics Alcohol use: Not Currently Comment: Caffeine intake: 3 cups decaf per day Drug use: Never Depression: Not at risk (05/06/2025) PHQ-2 PHQ-2 Score: 0 FAMILY HISTORY: Family History Problem Relation Name Age of Onset Lung cancer Father Damián Hypertension Father Damián Stroke Sister Kasie Cancer Maternal Grandfather Mother MEDICATIONS: Current Outpatient Medications Medication Instructions albuterol 108 (90 Base) MCG/ACT inhaler 2 puffs, Every 6 hours PRN albuterol 2.5 mg, Nebulization, 4 times daily RT bisoprolol (ZEBETA) 10 mg, Daily CHELATED IRON PO Take by mouth. Eliquis 5 mg, 2 times daily montelukast (SINGULAIR) 10 mg, Oral, Every 24 hours omega-3 (Fish Oil) 1200 MG capsule 1 capsule, Every 24 hours rosuvastatin (CRESTOR) 20 mg, Oral, Nightly ALLERGIES: Allergies Allergen Reactions Chlorpheniramine Other Reaction(s): Urinary Retention Niacin Other Reaction(s): Flush Pseudoephedrine Other Reaction(s): Urinary Retention Statins Other Reaction(s): Unknown Sulfamethoxazole Other Reaction(s): Constipated Trimethoprim Other Reaction(s): Unknown PHYSICAL EXAM: Visit Vitals BP 120/68 Pulse 70 Ht 6' 1 Wt 173 lb SpO2 98% BMI 22.82 kg/m Smoking Status Never BSA 2.01 m BP Readings from Last 3 Encounters: 05/11/25 120/68 04/07/24 120/68 05/16/23 120/70 Wt Readings from Last 3 Encounters: 05/11/25 173 lb 02/01/25 170 lb 12/21/24 170 lb Physical Exam The patient is pleasant and in no acute distress The patient has good eye contact and clear speech Results ASSESSMENT AND PLAN: Assessment/Plan 1. Encounter for Medicare annual wellness exam (Primary) The patient is here for their Annual Medicare Wellness visit. Demographics were updated. Self-assessment was completed and reviewed. Past medical, family, and social history were updated. The medication list updated and reviewed by the doctor. A list of other current medical providers is established and updated. Time was spent discussing health maintenance issues, ordering testing as appropriate,and a schedule was reviewed regarding recommended screening. [...] summary is made available to the patient We did specifically discuss prostate cancer screening, NERISSA, and PSA testing. He has opted to wait until next year when he will be 2 years from his previous PSA and Medicare will pay for screening. 2. Advance directive in chart No changes to advanced directives 3. Encounter for screening for other disorder Clinically insignificant depression screening 4. Screening for alcohol problem Negative alcohol screen 5. Osteopenia of neck of right femur Patient also notes specifically that he has arthritis in this region. - DEXA bone density; Future - DEXA bone density 6. Screening for osteoporosis - DEXA bone density; Future - DEXA bone density documented in this encounterPike County Memorial [id number] NoteHNO ID: [id number] Author: BRANDY MCKEON APRN.CNP Service: Electrophysiology Author Type: Nurse Practitioner Type: Plan of Care Filed: 03/12/2025 14:49 Note Text: Patient evaluated s/p pacemaker insertion. CXR and device check reviewed by Dr. Hines. Post procedure activity restrictions and wound care discussed and provided in written format. May be discharged Brandy Mckeon APRN.CNP March 12, 2025 2:49 [facility]09-05-2025 History of Present illness Narrative* Sowmya Espinoza RT(R) - 03/12/2025 7:00 AM EDT Radiology Service Progress Note PATIENT NAME: Britta Torres DATE OF SERVICE: March 12, 2025 TIME: 12:39 PM PATIENT IDENTITY VERIFICATION COMPLETED USING TWO (2) IDENTIFIERS: Name and Date of confirmedby patient verbally and Name and Date of confirmed by identification band. FALL SCREENING: Has the patient had 2 falls in the last year or 1 fall with injury or currently using an Ambulatory Assistive Device (Walker, Cane, Wheelchair, Crutches, etc.)? No PATIENT GENDER DATA: Assigned male at PATIENT RELEVANT IMPLANT DATA REVIEWED: Not Applicable PATIENT PRESENTS WITH AN IMPLANTABLE OR ATTACHED TREE WRAPPER: No RADIOLOGY DEPARTMENT: General X-ray: Exam(s) Completed: Chest X-Ray PERIPHERAL IV DATA: Not applicable SIGNED BY: RT Sanam(R) March 12, 2025 12:39 PM [facility] NoteHNO ID: [id number] Author: SOWMYA ESPINOZA RT(R) Service: Radiology Author Type: Technologist Type: Progress Notes Filed: 03/12/2025 12:40 Note Text: Radiology Service Progress Note PATIENT NAME: Britta Torres DATE OF SERVICE: March 12, 2025 TIME: 12:39 PM PATIENT IDENTITY VERIFICATION COMPLETED USING TWO (2) IDENTIFIERS: Name and Date of confirmed by patient verbally and Name and Date of confirmed by identification band. FALL SCREENING: Has the patient had 2 falls in the last year or 1 fall with injury or currently using an Ambulatory Assistive Device (Walker, Cane, Wheelchair, Crutches, etc.)? No PATIENT GENDER DATA: Assigned male at PATIENT RELEVANT IMPLANT DATA REVIEWED: Not Applicable PATIENT PRESENTS WITH AN IMPLANTABLE OR ATTACHED TREE WRAPPER: No RADIOLOGY DEPARTMENT: General X-ray: Exam(s) Completed: Chest X-Ray PERIPHERAL IV DATA: Not applicable SIGNED BY: RT Sanam(R) March 12, 2025 12:39 [facility]08-29-2025 Telephone encounter Note* Telephone Encounter - Selena Salazar - 03/05/2025 3:28 PM EDT Called and spoke to patient and scheduled his implant at [facility] with Dr Hines. 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 He will start Holding his Eliquis on Saturday. Follow up scheduled. [facility]08-29-2025 Telephone encounter Note* Telephone Encounter - Selena Salazar - 03/05/2025 3:28 PM EDT ----- Message from Brandy Mckeon APRN.CNP sent at 03/05/2025 2:41 PM EDT ----- Regarding: Add on case EPS Lab Request: Device Patient: Britta Torres Requested by: Brandy Mckeon APRN.DJ INSTRUCTOR Requesting Physician: Dr. Bagely/ Mike Procedure Physician: Dr. Devon hines Procedure Requested: PPM implant CPT: 25670-ijjjxd chamber Date of Last H&P? 03/04/2025 Indications / Dx for Procedure: Bradycardia Procedure Time Frame: Other Next week Estimated length of case: 2 HOURS Device Company: [employer] Patient: No Type of Bed: OVERNIGHT Medication to be stopped(please specify medication/timeframe): Yes, Eliquis 2 days prior ## ECHO also needs to be done prior to procedure which is ordered ## (Devon, don't know if anyone has shown you the procedure request dot phrases? They have to be sent to the procedure schedulers (AVW CARD PROCEDURE) for cases to get scheduled. Just an FYI, figured no one showed/told you :) [facility]08-29-2025 Miscellaneous Notes* Telephone Encounter - Selena Salazar - 03/05/2025 3:28 PM EDT Called and spoke to patient and scheduled his implant at [facility] with Dr Hines. 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 He will start Holding his Eliquis on Saturday. Follow up scheduled. * Telephone Encounter - Selena Salazar - 03/05/2025 3:28 PM EDT ----- Message from Brandy Mckeon APRN.CNP sent at 03/05/2025 2:41 PM EDT ----- Regarding: Add on case EPS Lab Request: Device Patient: Britta Torres Requested by: Brandy Mckeon APRN.DJ INSTRUCTOR Requesting Physician: Dr. Bagley/ Mike Procedure Physician: Dr. Devon hines Procedure Requested: PPM implant CPT: 13263-cpwybp chamber Date of Last H&P? 03/04/2025 Indications / Dx for Procedure: Bradycardia Procedure Time Frame: Other Next week Estimated length of case: 2 HOURS Device Company: [employer] Patient: No Type of Bed: OVERNIGHT Medication to be stopped(please specify medication/timeframe): Yes, Eliquis 2 days prior ## ECHO also needs to be done prior to procedure which is ordered ## (Devon, don't know if anyone has shown you the procedure request dot phrases? They have to be sent to the procedure schedulers (AVW CARD PROCEDURE) for cases to get scheduled. Just an FYI, figured no one showed/told you :) documented in this encounterT[facility]08[facility] History of Present illness Narrative* Brandy Mckeon APRN.DJ INSTRUCTOR - 03/04/2025 4:00 PM EDT Images from the original note were not included. [facility] Department of Cardiovascular Medicine SECTION OF ELECTROPHYSIOLOGY AND PACING OUTPATIENT VISIT DATE March 04, 2025 OUTPATIENT VISIT TYPE ESTABLISHED PRIMARY CARE PHYSICIAN: Austen Ontiveros MD [address] [place] [address] [address] [place] [address] CHIEF COMPLAINT: Follow Up HISTORY OF PRESENT ILLNESS: Mr. Torres is a 79 year old male, patient of Dr. Bagley and Dr. Goldberg who presents today for a cardiovascular medicine follow-up visit regarding permanent atrial fibrillation and recurrent syncopal events. He states that he had his first syncopal event ~5 months ago during which time he quickly donna from the couch to take the trash to the curb. He became dizzy and lost consciousness. Next episode occurred approximately 4-6 weeks ago- was standing outside talking to a neighbor- became lightheaded and lost consciousness falling backwards. Upon regaining consciousness, he was confused for a short while, but then returned to baseline. He reports the most recent episode occurring ~10 days ago. Was standing at the kitchen sink washingdishes- became very dizzy and lost consciousness falling backwards waking up on the floor. He has no other symptoms outside of a brief periods of dizziness. ZIO monitor demonstrated permanent atrial fibrillation average ventricular rate of 81 and one 3.3 second pause in the morning when he was awake. PMH: Permanent atrial fibrillation, CAD s/p CABG x3 (PECK/LAD, SVG/PDA, left radial to OM1) with TVr, AVR (annieward inspiris valve) and RAKEL clip and cryo maze--06/2021--[place], hypertension, dyslipidemia PAST MEDICAL HISTORY Diagnosis Date A-fib ([facility]) 2005 Loaded with Dofetilide 07/19/13 (self converted to sinus rhythm after first dose) Coronary artery disease involving [place] coronary artery of [place] heart with angina pectoris ([facility])06/2021 s/p CABG x3, PECK to LAD, SVG [...] Stroke Paternal Grandmother No Ocular Disease Other ALLERGIES Allergen Reactions Deconamine [Chlorph* Unknown Niaspan [...] Take 1 tablet by mouth every otherday. ferrous sulfate (IRON ORAL) Take by mouth. tamsulosin HCl (FLOMAX ORAL) Take 0.4 mg by mouth once daily. CALCIUM CARBONATE/VITAMIN D3 (VITAMIN D-3 ORAL) Take 2,000 Units by mouth twice daily. montelukast 10 mg tablet Take 10 mg by mouth daily at bedtime. MULTIVIT &MINERALS/FERROUS FUM (MULTI VITAMIN ORAL) Take by mouth once daily. [place]-3 Fatty Acids-Vitamin E 1,000 mg cap Take 1 capsule by mouth twice daily. REVIEW OF SYSTEMS: ROS is otherwise negative apart from what has been documented in HPI PHYSICAL EXAMINATION: BP 146/80 (BP Site: Left Arm, BP Position: Sitting, BP Cuff Size: Regular Adult) Pulse 71 Wt 79.5 kg (175 lb 4.3 oz) BMI 23.12 kg/m General: Well appearing, in no acute distress, speaking in complete sentences. Skin: No clubbing, no cyanosis. Neck: No jugular venous distention, no carotid bruits Lungs: Clear to auscultation bilaterally, no wheezing or rhonchi. Heart: Irregularly irregular Abdomen: Soft, nontender, bowel sounds present Extremities: No peripheral edema . Grade 2/4 distal pulses bilaterally. Neuro: Oriented to person, place and time, alert, cooperative, gait coordinated. CARDIOVASCULAR MEDICINE TESTING: Labs: Latest Ref Rng 01/18/2022 Glucose 74 - 99 mg/dL 109 (H) BUN 9 - 24 mg/dL 22 Creatinine 0.73 - 1.22 mg/dL 0.95 Sodium 136 - 144 mmol/L 140 Potassium 3.7 - 5.1 mmol/L 5.5 (H) Chloride 97 - 105 mmol/L 102 CO2 22 - 30 mmol/L 27 Anion Gap 9 - 18 mmol/L 11 eGFR >=60 mL/min/1.73m 83 Latest Ref Rng 01/18/2022 WBC 3.70 - 11.00 k/uL 4.66 RBC 4.20 - 6.00 m/uL 4.47 Hemoglobin 13.0 - 17.0 g/dL 12.9 (L) Hematocrit 39.0 - 51.0 % 41.2 MCV 80.0 - 100.0 fL 92.2 MCH 26.0 - 34.0 pg 28.9 MCHC 30.5 - 36.0 g/dL 31.3 RDW-CV 11.5 - 15.0 % 14.1 Platelet Count 150 - 400 k/uL 151 ECG 03/04/2025: Atypical atrial flutter VR 71 ECHO (03/03/2024 3:31 PM) - LVEF ~52%; RV normal size and function - LA moderately dilated; RA is dilated - S/p TVr with hernandez MC3 tricuspid ring (#32) - 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 Bundle Branch Block/IVCD was present. 1 Pause occurred lasting 3.3 secs (18 bpm). Isolated VEs were occasional (3.3%, 66836), VE Couplets were rare (<1.0%, 167), and no VE Triplets werepresent. Ventricular Bigeminy and Trigeminy were present. Symptoms correlate with atrial flutter with modestly controlled V rates. Independently reviewed and verified Paulette Hooper MD I have personally reviewed the Electrocardiogram and Laboratory Testing. IMPRESSION/PLAN: Permanetn atrial fibrillation/flutter [id number]: (Age, HTN, PVD)--Eliquis 5 mg BID ECG today demonstrates atypical atrial flutter VR 71 Reviewed zio monitor and episodes with Dr. Bagley- symptoms are highly suggestive of significant bradycardia resulting in LOC. We are unable to reduce his beta bteh dose given atrial fibrillation/flutter. Average pulse rate is 81. Thus, recommended permanent pacing support. I reviewed this with the patient and his - both are in agreement- We will obtain updated echocardiogram and I will discuss with invasive EP providers regarding device insertion. We will then schedule accordingly. CONTACT INFORMATION: Brandy Mckeon APRN.CNP Cardiology [id number] [facility] [id number] Dept: [phone] [1] Social History Tobacco Use Smoking status: Never Smokeless tobacco: Never Substance Use Topics Alcohol use: Yes Comment: rare beer after mowing lawn in summer Drug use: No documented [facility] NoteHNO ID: [id number] Author: BRANDY MCKEON APRN.CNP Service: ? Author Type: Nurse Practitioner Type: Progress Notes Filed: 03/04/2025 16:50 Note Text: [facility] [place] [facility] Department of Cardiovascular Medicine SECTION OF ELECTROPHYSIOLOGY AND PACING OUTPATIENT VISIT DATE March 04, 2025 OUTPATIENT VISIT TYPE ESTABLISHED PRIMARY CARE PHYSICIAN: Austen Ontiveros MD [address] [facility] [address] [place] [address] CHIEF COMPLAINT: Follow Up HISTORY OF PRESENT ILLNESS: Mr. Torres is a 79 year old male, patient of Dr. Bagley and Dr. Goldberg who presents today for a cardiovascular medicine follow-up visit regarding permanent atrial fibrillation and recurrent syncopal events. He states that he had his first syncopal event ~5 months ago during which time he quickly donna from the couch to take the trash to the curb. He became dizzy and lost consciousness. Next episode occurred approximately 4-6 weeks ago- was standing outside talking to a neighbor- became lightheaded and lost consciousness falling backwards. Upon regaining consciousness, he was confused for a short while, but then returned to baseline. He reports the most recent episode occurring ~10 days ago. Was standing at the kitchen sink washing dishes- became very dizzy and lost consciousness falling backwards waking up on the floor. He has no other symptoms outside of a brief periods of dizziness. ZIO monitor demonstrated permanent atrial fibrillation average ventricular rate of 81 and one 3.3 second pause in the morning when he was awake. PMH: Permanent atrial fibrillation, CAD s/p CABG x3 (PECK/LAD, SVG/PDA, left radial to OM1) with TVr, AVR (edward inspiris valve) and RAKEL clip and cryo maze--06/2021--[place], hypertension, dyslipidemia PAST MEDICAL HISTORY Diagnosis Date A-fib ([facility]) 2005 Loaded with Dofetilide 07/19/13 (self converted to sinus rhythm after first dose) Coronary artery disease involving [place] coronary artery of [place] heart with angina pectoris ([facility]) 06/2021 s/p CABG x3, PECK to [...] ECHO) 07/08/2006 TONSILLECTOMY AND ADENOIDECTOMY SOCIAL HISTORY SOCIAL HISTORY[1] FAMILY HISTORY Problem Relation Age of Onset Cancer Father Stroke Mother Coronary Artery Disease Sister GI Sister Hypertension Sister Stroke Paternal Grandmother No Ocular Disease Other ALLERGIES Allergen Reactions Deconamine [Chlorph* Unknown Niaspan [...] VITAMIN ORAL) Take by mouth once daily. [place]-3 Fatty Acids-Vitamin E 1,000 mg cap Take 1 capsule by mouth twice daily. REVIEW OF SYSTEMS: ROS is otherwise negative apart from what has been documented in HPI PHYSICAL EXAMINATION: BP 146/80 (BP Site: Left Arm, BP Position: Sitting, BP Cuff Size: Regular Adult) Pulse 71 Wt 79.5 kg (175 lb 4.3 oz) BMI 23.12 kg/m? General: Well appearing, in no acute distress, speaking in complete sentences. Skin: No clubbing, no cyanosis. Neck: No jugular venous distention, no carotid bruits Lungs: Clear to auscultation bilaterally, no wheezing or rhonchi. Heart: Irregularly irregular Abdomen: Soft, nontender, bowel sounds present Extremities: No peripheral edema . Grade 2/4 distal pulses bilaterally. Neuro: Oriented t (more content not included)...[facility] 02-01-2025 History of Present illness Narrative* Austen Ontiveros MD - 02/01/2025 4:00 PM EDT Images from the original note were not included. Patient ID: Britta Torres is a 79 y.o. male who presents for: Subjective Britta Torres is a 79 y.o. male who presents with right foot pain. Onset of the symptoms was a week ago. Precipitating event: none known. Current symptoms include: tender at the ankle and swollen. Symptoms have stabilized. Patient has had no prior foot problems. Evaluation to date: none. Treatment to date: none. Review of Systems No radicular pain or paresthesias No significant swelling Objective The patient is pleasant and in no acute distress The patient has good eye contact and clear speech The right foot grossly is within the realm of normal appearance, Except for some mild bruising below the right lateral malleolus. The skin is somewhat dry. He does have a diffuse violaceous this as well as varicose veins. There is minimal to no edema. He has full range of motion at the ankle. He has full range of motion with flexion and extension of his toes. Compression of the forefoot in the ankle malleoli are nontender. Pressure at the base of the 5th metatarsal is nontender. Inversion and eversion stressing is nontender. The Achilles tendon is nontender. There is no tenderness to the baseof the heel. 12/21/2024 1:30 PM 11/02/2024 11:34 AM 04/28/2024 9:42 AM 04/07/2024 9:11 AM Vitals BMI 22.43 kg/m2 22.43 kg/m2 22.43 kg/m2 22.43 kg/m2 BSA (m2) 1.99 m2 1.99 m2 1.99 m2 1.99 m2 Systolic 120 Diastolic 68 Heart Rate 106 103 SpO2 95 % 97 % Height (in) 6' 1 6' 1 6 6' 1 Weight (lb) 170 170 170 170 Visit Report Report Report Report Report Allergies Allergen [...] medications on file prior to visit. 1. Right foot pain (Primary) Acute problem. After discussion with him we have a generalized foot pain which is more towards the lateral aspect,but no injury and no significant clinical findings. He certainly does have dry skin around the feetbut no evidence of infection. Has some venous insufficiency but no significant swelling or evidenceof cellulitis. After discussion with him we have mutually agreed to just give this 1 more week. He knows he can call if it gets worse. We will next proceed with either an x- ray of the foot and ankle versus a podiatry referral whichever he would like to choose. If it resolves on his own we do not need to pursue this further. Please Note: Portions of this chart may have been created using voice recognition software. Occasionally a wrong-word or sound-like substitutions may have occurred due to inherent limitations of the voice recognition software. Please read the chart carefully and recognize, using context, where the substitutions may have occurred. documented in this encounterPike County Memorial [id number] History of Present illness Narrative* Patricia Archer APRN.[facility] - 01/05/2025 8:00 AM EDT Images from the original note were not included. [facility] [place] [facility] Department of Cardiovascular Medicine SECTION OF CLINICAL CARDIOLOGY OUTPATIENT VISIT DATE January 05, 2025 OUTPATIENT VISIT TYPE ESTABLISHED PRIMARY CARE PHYSICIAN: Austen Ontiveros MD [address] [place] [address] CHIEF COMPLAINT: Follow up HISTORY OF PRESENT ILLNESS: Mr. Torres is a 79 year old male patient of Dr. Goldberg and Dr. Bagley [facility] permanent atrial fibrillation, CAD (: s/p CABG x3, PECK to LAD, SVG to PDA, left radial artery to the obtuse marginal 1, TV repair with a ring, AVR with austen casianos valve, left atrial appendage clip, cryo maze), hypertension, hyperlipidemia, residential anticoagulation, anemia who presents today for a [...] tractor and went to walk and passed out.He was advised to the go to the ER but refused. Zio revealed atrial flutter 100% of the time. Avg Hr 81 BPM. 1 pause 3.3 s. Most triggered events were reasonably controlled HR. Today, he is very active. Can bike 20 miles without difficult He denies . chest pain, shortness of breath, edema, palpitations, lightheadedness or syncope PAST MEDICAL HISTORY Diagnosis Date A-fib (HCC) 2005 Loaded with Dofetilide 07/19/13 (self converted to sinus rhythm after first dose) Coronary artery disease involving [place] coronary artery of [place] heart with angina pectoris (HCC)06/2021 s/p CABG x3, PECK to LAD, SVG [...] Take 1 tablet by mouth every otherday. ferrous sulfate (IRON ORAL) Take by mouth. tamsulosin HCl (FLOMAX ORAL) Take 0.4 mg by mouth once daily. CALCIUM CARBONATE/VITAMIN D3 (VITAMIN D-3 ORAL) Take 2,000 Units by mouth twice daily. montelukast 10 mg tablet Take 10 mg by mouth daily at bedtime. MULTIVIT &MINERALS/FERROUS FUM (MULTI VITAMIN ORAL) Take by mouth once daily. [place]-3 Fatty Acids-Vitamin E 1,000 mg cap Take [...] (18 bpm). Isolated VEs were occasional (3.3%, 11033), VE Couplets were rare (<1.0%, 167), and no VE Triplets werepresent. Ventricular Bigeminy and Trigeminy were present. Symptoms [...] with more than 50% of the total idoh-qa-slpe time of the visit in counseling / coordination of care. documented in [facility] encounterT[facility]07-[facility]25 NoteHNO ID: [id number] Author: PATRICIA ARCHER APRN.CNP Service: ? Author Type: Nurse Practitioner Type: Progress Notes Filed: 01/05/2025 08:38 Note Text: [facility] [place] [facility] Department of Cardiovascular Medicine SECTION OF CLINICAL CARDIOLOGY OUTPATIENT VISIT DATE January 05, 2025 OUTPATIENT VISIT TYPE ESTABLISHED PRIMARY CARE PHYSICIAN: Austen Ontiveros MD [address] [place] [address] CHIEF COMPLAINT: Follow up HISTORY OF PRESENT ILLNESS: Mr. Torres is a 79 year old male patient of Dr. Goldberg and Dr. Bagley [facility] permanent atrial fibrillation, CAD (: s/p CABG x3, PECK to LAD, SVG to PDA, left radial artery to the obtuse marginal 1, TV repair with a ring, AVR with austen inspiris valve, left atrial appendage clip, cryo maze), hypertension, hyperlipidemia, residential anticoagulation, anemia who presents today for a [...] syncope PAST MEDICAL HISTORY Diagnosis Date A-fib ([facility]) 2005 Loaded with Dofetilide 07/19/13 (self converted to sinus rhythm after first dose) Coronary artery disease involving [place] coronary artery of [place] heart with angina pectoris ([facility]) 06/2021 s/p CABG x3, PECK to [...] VITAMIN ORAL) Take by mouth once daily. [place]-3 Fatty Acids-Vitamin E 1,000 mg cap Take [...] taking: Reported on 01/05/2025) CARDIOVASCULAR MEDICINE TESTIN12/22/24 [facility] Enrollment Dates: 11/27/2024-12/11/2024 IRHYTHM FINDINGS: Atrial Flutter occurred continuously (100% burden), ranging from 35-120 bpm (avg of 81 bpm). Bundle Branch Block/IVCD was present. 1 Pause occurred lasting 3.3 secs (18 bpm). Isolated VEs were occasional (3.3%, 90397), VE Couplets were rare (<1.0%, 167), a (more content not included)...[facility]06-16-2025 History of Present illness Narrative* Austen Ontiveros MD - 12/21/2024 1:45 PM EDT Images from the original note were not [...] he was the one who ate it. Shestates he has seen cardiology at [facility] back in November and they did a holter for 7 days but they have notcalled with results and he is scheduled for [...] transition of care note is reviewed. a byev-yf-scch evaluation is done today. Medical decision making is complex in degree. 2. Longstanding persistent atrial fibrillation (HCC) Chronic problem that has been stable. He notes rare palpitations. Short-lived. Comanaged by Cardiology. 3. Atherosclerosis of [place] coronary artery of [place] heart without angina pectoris Chronic problem that appears stable. There is no description of angina or anginal equivalents. 4. Mild persistent asthma without complication (HCC) Chronic problem that he has happy, he notes he is not using any maintenance medications now in it he only uses p.r.n. albuterol rarely. 5. RBBB (right bundle branch block) Chronic comorbid condition. documented in this encounterPike County Memorial HospitalAvjynixpql31-90-3544 NoteHNO ID: [id number] Author: ANA JARAMILLO RN Service: ? Author Type: Registered Nurse Type: Progress Notes Filed: 11/27/2024 08:43 Note Text: EVENT MONITOR DISPOSABLE PATCH INSTRUCTIONS Patient Name: Britta Torres [facility] Number: [id number] Skin prepped and cleansed with alcohol Patch secured to prepped area Monitor Activated Serial #: [id number] Patient Instructed: Prescribed order timeframe Bathing guidelines Usage of event button and diary documentation Return of monitor at the end of prescribed order Call with problems [phone] or [phone]. [phone] Patient expresses a good understanding of instructions Ana Jaramillo RN [id number] [facility]in [facility]05-[facility] Telephone encounter Note* Telephone Encounter - Alycia Wilde - 11/10/2024 3:08 PM EDT Spoke with patient - scheduled appointment with MAYANK Ladarius MATINAS BIOPHARMAhoat on 12/07 in [place]. [facility]05-06-2025 Miscellaneous Notes* Telephone Encounter - Alycia Wilde - 11/10/2024 3:08 PM EDT Spoke with patient - scheduled appointment with MAYANK Ladarius MATINAS BIOPHARMAhoat on 12/07 in [place]. * Telephone Encounter - Agnes Reina RN - 11/04/2024 3:50 PM EDT Spoke with patient. Feeling very well right now. No symptoms. Reiterated Dr. Lynch message to him regarding medications and monitor. Stressed the importance of going to the ER should he start having symptoms again. Will forward to scheduling to get him MAYANK appoint per Dr. Goldberg. * Telephone Encounter - Amber Ko RN - 11/04/2024 2:35 PM EDT Patient calling Dr. Goldberg regarding syncopal episode [...] 1.5 tablets per day preventatively. Patient phone: [phone] Pharmacy: [facility] GO TO THE EMERGENCY ROOM OR CALL 911 IF: * You develop any new symptoms * Your condition worsens * You are concerned or anxious about your condition for any other reason. If you have any questions, call back. documented in this encounterTwin City Hospital04-30-2025 Telephone encounter Note * Telephone Encounter - Agnes Reina RN - 11/04/2024 3:50 PM EDT Spoke with patient. Feeling very well right now. No symptoms. Reiterated Dr. Lynch message to him regarding medications and monitor. Stressed the importance of going to the ER should he start having symptoms again. Will forward to scheduling to get him MAYANK appoint per Dr. Goldberg. [facility]04-30-2025 Telephone encounter Note* Telephone Encounter - Amber Ko RN - 11/04/2024 2:35 PM EDT Patient calling Dr. Goldberg regarding syncopal episode [...] 1.5 tablets per day preventatively. Patient phone: [phone] Pharmacy: [facility] GO TO THE EMERGENCY ROOM OR CALL 911 IF: * You develop any new symptoms * Your condition worsens * You are concerned or anxious about your condition for any other reason. If you have any questions, call back. [facility] Work Phone: 1(578) 140-254604-30-2025 NoteHNO ID: [id number] Author: PAULETTE HOOPER MD Service: ? Author [...] (18 bpm). Isolated VEs were occasional (3.3%, 06689), VE Couplets were rare (<1.0%, 167), and no VE Triplets were present. Ventricular Bigeminy and Trigeminy were present. Symptoms correlate with atrial flutter with modestly controlled V rates. Independently reviewed and verified Paulette Hooper MD December 23, 2024 6:01 PM SVE = supraventricular ectopic (PAC) VE = ventricular ectopic (PVC)[facility]04-28-2025 History of Present illness Narrative* Austen Ontiveros MD - 11/02/2024 11:45 AM EDT Images from the original note were not [...] is speaking full sentences. There are asymmetrical breathsounds With a decrease in the right lower lung field. No rales are appreciated. No wheezes. He doeshave rhonchi in the right lower lung field. [...] polypharmacy; 5 or more prescriptions or multi-morbidity definedas 5 or more diagnoses. Polypharmacy can significantly increase the risk of preventable adverse drug events and negatively impact adherence. Consideration of diverse factors such as clinician agreement, patient perspective,and de-prescribing, as appropriate can improve patient outcomes while simplifying care. This requires longitudinal monitoring as there is at least a moderate risk of morbidity and requires at least amoderate degree of evaluation and management. 3. BMI 22.0-22.9, adult 4. Mild persistent asthma without complication Comorbid condition that complicates evaluation formulation of a treatment plan. documented in this encounterPike County Memorial HospitalOxpyzhwhjx23-32-6948 NoteHNO ID: [id number] Author: EVER GOLDBERG MD Service: ? Author [...] artery disease involving coronary bypass graft of [place] heart without angina pectoris (I25.810) Clinically stable, [...] low-sodium diet. - Continue current management. 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 Multivitamin and Mineral Combinations [place]-3 Fatty Acids-Vitamin E 1,000 mg cap Take 1 capsule by mouth twice daily. Antihyperlipidemic Agents - Dietary Source Combinations prednisoLONE acetate (PRED FORTE) 1 % ophthalmic suspension USE DIR (more content not included)...[facility]04-04-2025 History of Present illness Narrative* Ever Goldberg V, MD - 10/09/2024 10:42 AM EDT Referring Physician: No referring provider defined for [...] he checks. Even during episodes of atrial fibrillation,he does not experience any limitations in his activities. He walks 4.5 miles daily and monitors hisheart rate, which increases to about 109 bpm [...] AV block, premature atrial contractions, and right bundlebranch block, stable findings 1. Coronary artery disease involving coronary bypass graft of [place] heart without angina pectoris (I25.810) Clinically stable, [...] low-sodium diet. - Continue current management. 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 Antihyperlipidemic - HMG CoAReductase Inhibitors (statins) ANTI-PLATELET THERAPIES Medication Dosage Pharm Subclass aspirin, enteric coated (ADULT LOW DOSE ASPIRIN) 81 mg EC tablet Take 1 tablet by mouth every otherday. Salicylate Analgesics ANTICOAGULANTS Medication Dosage Pharm Subclass apixaban (ELIQUIS) 5 mg tab(s) Take 1 tablet by mouth two times a day. Direct Factor Xa Inhibitors ASPIRIN Medication Dosage Pharm Subclass aspirin, enteric coated (ADULT LOW DOSE ASPIRIN) 81 mg EC tablet Take 1 tablet by mouth every otherday. Salicylate Analgesics OTHER Medication Dosage Pharm Subclass CALCIUM CARBONATE/VITAMIN D3 (VITAMIN D-3 ORAL) Take 2,000 Units by mouth twice daily. Minerals andElectrolytes - Calcium Replacement/Vitamin D Combinations cholecalciferol, vitamin [...] mouth once daily. Multivitamin and Mineral Combinations [place]-3 Fatty Acids-Vitamin E 1,000 mg cap Take 1 capsule by mouth twice daily. Antihyperlipidemic Agents - Dietary Source Combinations prednisoLONE acetate (PRED FORTE) 1 % ophthalmic suspension USE DIRECTED BY PHYSICIAN, IN OPERATIVE EYE, BEGINNING ONE DAY AFTER SURGERY Ophthalmic - Anti- inflammatory, Glucocorticoids tamsulosin HCl (FLOMAX ORAL) Take 0.4 mg by mouth once daily. Prostatic Hypertrophy Agent - vofih-3-Tolsmctwzaww Antagonists General: Alert & oriented, no acute [...] AV block, premature atrial contractions, and right bundlebranch block, stable findings Allergies: ALLERGIES Allergen Reactions [...] The patient consented to the use of FFFavs software for draft documentation of the visit consistent with [facility] s Notice of Privacy Practices. documented in this encounterTwin City Hospital01-16-2025 Telephone encounter Note * Telephone Encounter - Austen Ontiveros MD - 07/23/2024 1:36 PM EST I called and reviewed with him. I [...] recommended to him that he get on thisand stay on this for awhile to try and get all of this calm back down. He has agreed to do this. [facility] HospitalQezjatfunv97-68-2857 Miscellaneous Notes* Telephone Encounter - Austen Ontiveros MD - 07/23/2024 1:36 PM EST I called and reviewed with him. I [...] recommended to him that he get on thisand stay on this for awhile to try and get all of this calm back down. He has agreed to do this. documented in this encounterPike County Memorial HospitalTtaspheuns46-18-0571 History of Present illness Narrative* Austen Ontiveros MD - 07/14/2024 2:00 PM EST Images from the original note were [...] his leg he does have 2 prominent lesions.They are crusted in violaceous . They are [...] diagnostic endeavor and not an endeavor to removethe lesions. The risks were discussed and include; [...] cautery stick as needed. The wounds are thendressed. Wound care is advised. CPT 38464 - Tissue exam; Future - Tissue exam 2. Changing skin lesion As above - Tissue exam; Future - Tissue exam 3. Personal history of skin cancer Comorbid condition - Tissue exam; Future - Tissue exam documented in this encounterPike County Memorial HospitalFqgyenfuio65-45-2732 Telephone encounter Note* Telephone Encounter - Agnes Reina RN - 06/18/2024 4:39 PM EST Information faxed to [facility]12-12-2024 Miscellaneous Notes* Telephone Encounter - Agnes Reina RN - 06/18/2024 4:39 PM EST Information faxed to [facility] documented in this encounterTwin City Hospital12-09-2024 NoteHNO ID: [id number] Author: DHARMESH BAGLEY MD Service: ? Author [...] I will see him again in 1 year.[facility]12-09-2024 History of Present illness Narrative* Dharmesh Bagley MD - 06/15/2024 12:49 PM EST Britta Torres is a 79-year-old man with chronic atrial fibrillation, status post CABG and aortic valve replacement. Over the last few months, bisoprolol was increased to the current dose of 20 mg daily and ventricular rate control is much improved. He has had no unexpected bleeding or excessive bruising on Eliquisand aspirin. My cardiology colleague Dr. 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 He walks 4 miles daily without exertional symptoms. Medications: Reviewed. Physical examination: He looks well. Blood pressure 130/80, pulse rate 78 and irregular. Lungs: No wheezes, rales or rhonchi. Heart: Fixed splitting of the second sound with accentuation of S2. Shortsystolic ejection murmur. Impression and plan: Continue current rate control and anticoagulation. I will see him again in 1 year. documented in this encounterTwin City Hospital10-22-2024 History of Present illness Narrative* Austen Ontiveros MD - 04/28/2024 10:00 AM EDT Images from the original note were not included. Patient ID: Britta T Brian is a 79 y.o. male who presents [...] diagnostic endeavor and not an endeavor to removethe lesion. The risks were discussed and include; bruising/bleeding, infection, scarring, nerve damage, and nondiagnostic results. The patient was given a chance to ask questions and all questions were answered.The patient has given verbal consent to proceed. [...] 4. BMI 22.0-22.9, adult documented in this encounterPike County Memorial HospitalEcatgdsita33-14-5180 History of Present illness Narrative* Austen Ontiveros MD - 04/07/2024 9:30 AM EDT Images from the original note were not included. Subjective : Chief Complaint: rBitta Torres is an 79 y.o. 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 Hearing Screening: Yes, concerned about hearing loss Cognitive Screening Self Assessment: No concerns rasied by family members, friends, or caretakers Three Word Registration: Banana, [place], Chair Clock Drawing: Normal Clock - 2 Three Word Recall: All 3 words correct - 3 Total Score (0-5 Points): 5 Pain Assessment Pain Score: 0 - No pain Advance Care Planning Do you have a living will?: Yes Do you have a medical power of trademark attorney?: Yes Who is your medical power of trademark attorney?: Son and Daughter Objective : BP 120/68 [...] Left upper chest wall and left lateral leg.The primary area on the left chest wall [...] discussing health maintenance issues, ordering testing as appropriate,and a schedule was reviewed regarding recommended screening. [...] problem, stable, monitored longitudinally. 9. Atherosclerosis of [place] coronary artery of [place] heart without angina pectoris (CMS/HCC) Chronic problem, [...] primary lesion in the chest wall is aseborrheic keratosis however I am concerned about this macular asymmetric almost black appearing lesion at the upper border, and I have recommended punch biopsy for diagnostic evaluation. He has multiple actinic keratoses scattered. I suspect however that the lesion on his left leg has turned into a basal cell carcinoma. I have recommended that we also do punch biopsy at the same timeas above for diagnostic purposes. He will schedule back for this. Electronically signed by Austen Ontiveros MD on April 07, 2024 documented in this encounterPike County Memorial HospitalJxilrhuqfw20-97-5386 Telephone encounter Note* Telephone Encounter - Grazyna Bucio RN - 03/19/2024 3:54 PM EDT Scripts faxed to number provided with confirmation. Called patient and updated him, pt thankful [facility]09-12-2024 Miscellaneous Notes* Telephone Encounter - Grazyna Bucio RN - 03/19/2024 3:54 PM EDT Scripts faxed to number provided with confirmation. Called patient and updated him, pt thankful * Telephone Encounter - Brandy Mckeon APRN.CNP - 03/19/2024 3:40 PM EDT The following approved medication requests have been [...] once daily. Authorizing Provider: BRANDY MCKEON APRN.CNP * Telephone Encounter - Grazyna Bucio RN - 03/19/2024 3:37 PM EDT Pended scripts, will ask Brandy Mckeon CNP in office for help * Telephone Encounter - Sowmya Kelley - 03/19/2024 3:21 PM EDT Britta is calling Patricia Archer APRN.CARMEN today saying that the 3 prescriptions sent on 03/16/24 went tothe wrong pharmacy. Meds is for his but Britta's have to go to [place]. [facility] fax [phone]. Please advise. Patient has been identified by name and birthdate. Duration of symptoms: N/A Person calling: self Call patient at: on cell [phone] (home) [phone] (cell) Was an appointment scheduled: No Closing statement: Results or non-symptom based questions: Thank you for calling [facility], your call will be returned within the next business day. - Sowmya Fritz - documented in this encounterTwin City Hospital09-12-2024 Telephone encounter Note * Telephone Encounter - Brandy Mckeon APRN.CNP - 03/19/2024 3:40 PM EDT The following approved medication requests have been [...] once daily. Authorizing Provider: BRANDY MCKEON APRN.CNP [facility]09-12-2024 Telephone encounter Note* Telephone Encounter - Grazyna Bucio RN - 03/19/2024 3:37 PM EDT Pended scripts, will ask Brandy Mckeon CNP in office for help [facility]09-12-2024 Telephone encounter Note* Telephone Encounter - Sowmya Kelley - 03/19/2024 3:21 PM EDT Britta is calling Patricia Archer APRN.CNP today saying that the 3 prescriptions sent on 03/16/24 went tothe wrong pharmacy. Meds is for his but Britta's have to go to [place]. [facility] fax [phone]. Please advise. Patient has been identified by name and birthdate. Duration of symptoms: N/A Person calling: self Call patient at: on cell [phone] (home) [phone] (cell) Was an appointment scheduled: No Closing statement: Results or non-symptom based questions: Thank you for calling [facility], your call will be returned within the next business day. - Sowmya Salinas Pss - [facility]09-09-2024 Telephone encounter Note* Telephone Encounter - Torri Hill RN - 03/16/2024 1:56 PM EDT Labs faxed with fax confirmation [facility]09-09-2024 Miscellaneous Notes* Telephone Encounter - Torri Hill RN - 03/16/2024 1:56 PM EDT Labs faxed with fax confirmation * Telephone Encounter - Mouna Gomez - 03/16/2024 1:51 PM EDT Britta is calling Patricia Archer APRN.CNP today to request lab orders to be faxed over to [facility]. Please advise. Fax number: [phone] Patient has been identified by name and birthdate. Duration of symptoms: N/A Person calling: self Call patient at: at home [phone] (home) [phone] (cell) Was an appointment scheduled: No Closing statement: Results or non-symptom based questions: Thank you for calling [facility], your call will be returned within the next business day. Thank you, Mouna Gomez documented in this encounterTwin City Hospital09-09-2024 Telephone encounter Note * Telephone Encounter - Mouna Gomez - 03/16/2024 1:51 PM EDT Britta is calling Patricia Archer APRN.CNP today to request lab orders to be faxed over to [facility]. Please advise. Fax number: [phone] Patient has been identified by name and birthdate. Duration of symptoms: N/A Person calling: self Call patient at: at home [phone] (home) [phone] (cell) Was an appointment scheduled: No Closing statement: Results or non-symptom based questions: Thank you for calling [facility], your call will be returned within the next business day. Thank you, Mouna Gomez [facility]09-09-2024 History of Present illness Narrative* Patricia Archer APRN.CNP - 03/16/2024 9:00 AM EDT Images from the original note were not included. [facility] [place] [facility] Department of Cardiovascular Medicine SECTION OF CLINICAL CARDIOLOGY OUTPATIENT VISIT DATE March 16, 2024 OUTPATIENT VISIT TYPE ESTABLISHED PRIMARY CARE PHYSICIAN: Austen Ontiveros MD [address] [place] [address] CHIEF COMPLAINT: Follow up HISTORY OF PRESENT ILLNESS: Mr. Torres is a 78 year old male patient of Dr. Goldberg and Dr. Bagley H of permanent atrial fibrillation (rate control strategy, [id number]: 2%), known CAD (: s/p CABG x3, PECK to LAD, SVG to PDA, left radial artery to the obtuse marginal 1, TV repair with a ring, AVR with austen inspiris valve, left atrial appendage clip, cryo maze), preserved LV systolic heart function (echo: 2021: EF 56%, pulmonary hypertension RVSP 49mmHg, LA severely dilated), hypertension, hyperlipidemia, long termanticoagulation, anemia who presents today for a cardiovascular medicine follow-up visit. Echo was completed 03/03/24 that revealed LVEF 52%, mild RV dysfunction, LA dilation, RA dilation, s/p TV repair mild TR 7/2, s/p prosthetic AVR #25 trace AR 10/6 BP 120/78 Hr while active up to 110. active walks 4 miles a day and bikes outside. Diet is good. Nocomplaints at this time He denies chest pain, shortness of breath, orthopnea, cough, edema, palpitations, PND, lightheadedness or syncope. PAST MEDICAL HISTORY 2006: A-fib ([facility]) Comment: Loaded with Dofetilide 07/19/13 (self converted to sinus rhythm after first dose) 06/2021: Coronary artery disease involving [place] coronary artery of [place] heart with angina pectoris ([facility]) Comment: s/p CABG x3, PECK to [...] Take 1 tablet by mouth every otherday. ferrous sulfate (IRON ORAL) Take by mouth. tamsulosin HCl (FLOMAX ORAL) Take 0.4 mg by mouth once daily. CALCIUM CARBONATE/VITAMIN D3 (VITAMIN D-3 ORAL) Take 2,000 Units by mouth twice daily. montelukast 10 mg tablet Take 10 mg by mouth daily at bedtime. MULTIVIT &MINERALS/FERROUS FUM (MULTI VITAMIN ORAL) Take by mouth once daily. [place]-3 Fatty Acids-Vitamin E 1,000 mg cap Take [...] MEDICINE TESTING: Echo 03/04/2024 8:19 AM - [facility], Cecile Oru In Impression CONCLUSIONS: - Exam [...] is dilated. - Post tricuspid valve repair. Hernandez MC3 Tricuspid Ring (size #32). There is [...] - echo completed recently tricuspid valve repair 01/07 gradients, aortic valve gradients 04/12 mild MR, TR, PH, trace WA - euvolemic on exam, NT pro BNP [...] with more than 50% of the total badn-af-gvwo time of the visit in counseling / coordination of care. documented in this encounterT[facility]07-24-2024 Telephone encounter Note * Telephone Encounter - Sanaz Hurtado RN - 01/29/2024 10:51 AM EDT Pt has a Stress ECHO coming up [...] as scheduled barring any issues or illness [facility]07-24-2024 Miscellaneous Notes* Telephone Encounter - Sanaz Hurtado RN - 01/29/2024 10:51 AM EDT Pt has a Stress ECHO coming up [...] any issues or illness documented in this encounterT[facility]05-10-[facility]24 NoteDate of Procedure 11/15/2023. Home Health Scheduler Information ABHISHEK Rocha . Notes Measurements only - see Procedure Record under Scanned Documents for signed results.[id number] History of Present illness Narrative* Kiley Chase COA - 11/15/2023 1:58 PM EDT CONFIRM AIM PLANO RIGHT EYE. ABHISHEK Rocha documented in this encounterTwin City Hospital05-10-2024 History and physical note * Manuela Barba APRN.DJ INSTRUCTOR - 11/15/2023 1:00 PM EDT Images from the original note were not [...] Stable on medication Coronary artery disease involving [place] coronary artery of [place] heart with angina pectoris (HCC) History of [...] 7.13 Pulmonary hypertension Stable. Follows cardiology, Dr. Golbderg, Compliant on medications. Appears euvolemic, denies new [...] have a large neck STOP-Bang Score: 3 [id number] Score: Age: >=75 Sex: male CHF history: Yes Hypertension history: Yes Stroke/TIA/thromboembolism history: No Vascular disease history: Yes Diabetes history: No [id number] Score: 5 ARISCAT Score: Age: 51-80 Preoperative [...] Avina present: no Lip Bite Test: II Microretrognathia/Micronagthia/Recessed Chin: No DENTAL Dental findings: teeth intact. [...] today PAST MEDICAL HISTORY Diagnosis Date A-fib ([facility]) 2005 Loaded with Dofetilide 07/19/13 (self converted to sinus rhythm after first dose) Coronary artery disease involving [place] coronary artery of [place] heart with angina pectoris ([facility])06/2021 s/p CABG x3, PECK to LAD, SVG [...] Take 1 tablet by mouth every otherday. Taking Yes apixaban (ELIQUIS) 5 mg tab(s) [...] Take by mouth once daily. Taking Yes [place]-3 Fatty Acids-Vitamin E 1,000 mg cap Take 1 capsule by mouth twice daily. Taking Yes No medication comments found. ALLERGIES Allergen Reactions Deconamine [Chlorph* Unknown Niaspan [Niacin] Unknown Pseudoephedrine Unknown Other Reaction(s): Urinary Retention Sulfamethoxazole-Tr* Unknown Covid Immunization Dates Overdue - Covid-19 Vaccine (2022- season) Overdue since 03/08/2023 05/01/2022 Imm Admin: [...] fevers. Neuro: No history of TIA's, stroke, ONLINE AFFILIATE MARKETING MANAGER tumor, impaired sensorium, hemiplegia, paraplegia or quadraplegia. [...] 382 QTC Calculation (Bazett) 457 Calculated R Jefferson 58 Calculated T Jefferson 35 Impression ATRIAL FIBRILLATION COMPLETE RIGHT BUNDLE [...] severely dilated. - Post tricuspid valve repair. Hernandez MC3 Tricuspid Ring (size #32). There is [...] Britta Torres DATE: 11/15/2023 TIME: 12:54 PM [facility]05-10-2024 History and physical note* Manuela Barba APRN.CNP - 11/15/2023 1:00 PM EDT Images from the original note were not [...] Stable on medication Coronary artery disease involving [place] coronary artery of [place] heart with angina pectoris (HCC) History of [...] have a large neck STOP-Bang Score: 3 [id number] Score: Age: >=75 Sex: male CHF history: Yes Hypertension history: Yes Stroke/TIA/thromboembolism history: No Vascular disease history: Yes Diabetes history: No [id number] Score: 5 ARISCAT Score: Age: 51-80 Preoperative [...] Avina present: no Lip Bite Test: II Microretrognathia/Micronagthia/Recessed Chin: No DENTAL Dental findings: teeth intact. [...] today PAST MEDICAL HISTORY Diagnosis Date A-fib (HCC) 2005 Loaded with Dofetilide 07/19/13 (self converted to sinus rhythm after first dose) Coronary artery disease involving [place] coronary artery of [place] heart with angina pectoris (HCC)06/2021 s/p CABG x3, PECK to LAD, SVG [...] Take 1 tablet by mouth every otherday. Taking Yes apixaban (ELIQUIS) 5 mg tab(s) [...] Take by mouth once daily. Taking Yes [place]-3 Fatty Acids-Vitamin E 1,000 mg cap Take [...] fevers. Neuro: No history of TIA's, stroke, ONLINE AFFILIATE MARKETING MANAGER tumor, impaired sensorium, hemiplegia, paraplegia or quadraplegia. [...] 382 QTC Calculation (Bazett) 457 Calculated R Jefferson 58 Calculated T Jefferson 35 Impression ATRIAL FIBRILLATION COMPLETE RIGHT BUNDLE BRANCH BLOCK ABNORMAL ECG Confirmed by STEFAN TINEO, JULIO ([id number]) on 06/11/2023 7:02:50 PM 01/18/2022 9:44 AM - [facility], [employer] In Impression CONCLUSIONS: - Exam [...] severely dilated. - Post tricuspid valve repair. Hernandez MC3 Tricuspid Ring (size #32). There is [...] 11/15/2023 TIME: 12:54 PM documented in this encounterTwin City Hospital05-10-2024 Instructions* Patient Instructions* Manuela Barba APRN.CNP - 11/15/2023 12:50 PM EDT PATIENT PREOPERATIVE INSTRUCTIONS Mary Senior V, MD has scheduled you for your procedure at this surgery center: [facility]: [phone] --[address] [facility]. [place] [place] [address]. Please read below carefully for your personalized [...] Procedures: - YOU MUST HAVE A RESPONSIBLE PHOTO JOURNALIST TAKE YOU HOME. A CLIENT ADVOCATE OR SPINNING OPERATOR CANNOT BE MADE A RESPONSIBLE PHOTO JOURNALIST. - We recommend that a responsible person stays with you overnight to take care of you. - You cannot stay in a hotel alone after outpatient surgery. You will not be permitted to have yoursurgery, if you do not have someone to take care of you. If you already have an Advance Directive, please fax a copy to [phone] or email to for it to be added to your chart. If you do not have an Advance Directive, you can find the appropriate form and more information at [email or web address]. We recommend that youcomplete the Advance Directive form found on the website and bring it with you the day of your surgery. It can be witnessed and scanned into your chart that day. Manuela Barba APRN.CARMEN documented in this encounterTwin City Hospital02-29-2024 Miscellaneous Notes* Telephone Encounter - Carmen Weathers LPN - 09/05/2023 8:43 AM EST Received lab results from [facility]. Already scanned into chart but will give to Dr.Chan nixon to review. documented in this encounterTwin City Hospital02-27-2024 Miscellaneous Notes* Addendum Note - Libia Hernández - 09/03/2023 3:38 PM ESTAddended by: LIBIA HERNÁNDEZ on: 09/03/2023 03:38 PM Modules accepted: Orders documented in this encounterTwin City Hospital02-27-2024 Instructions* Patient Instructions* Mary Senior V, MD - 09/03/2023 3:27 [...] health of the eye if left untreated, i t can prove to be a nuisance. Not all patients will develop a clouded capsule, but if this occurs, the problem can be corrected with a simple, non-invasive procedure known as a YAG laser capsulotomy. If you elect to have this procedure, dilating drops are given to open the pupil. You will be asked to sit in a machine similar tothe one that is used to check you eye pressure in an eye exam. The doctor then shines a red, aiminglaser beam that can be seen by our [...] so we recommend you come with a subway train driver. You will then be scheduled for a follow up in approximately one week. If you notice any of the following symptoms of retinal detachment, please call our office at : - Flashes of light - Increased number of floaters or large floaters - Curtains, veils, or spider web pattern over vision documented in this encounterTwin City Hospital02-27-2024 History of Present illness Narrative* Mary Senior V, MD - 09/03/2023 2:55 PM EST The documentation for this note was completed by Glo Harris, ABHISHEK acting as a scribe for Mary SENIOR MD. 09/03/2023 2:55 PM. ASSESSMENT / PLAN: 1. Combined cataract, right eye - Offered cataract extraction by phacoemulsification and intraocular lens implant with Dr. Senior, right eye, right eye first - Aim: [place] - Flomax/alpha-beth? Yes - Toric candidate: No - PanOptix candidate: No - Anesthesia: Topical with MAC - Contact lens use No - History of LASIK/PRK/RK No - Discussed initiate twice daily eyelid scrubs pending U/S biometry and surgery - Comanage with Dr Stallings; [facility] POD #1 Cataract Presurgical Documentation Cataract: [...] patient was offered a surgery/procedure at a [facility] facility. The surgeon/proceduralist and patient have discussed in detail the risk of exposure to and/or potential harm posed by the COVID-19 virus with having a surgery/procedure at this time versus the risk of delaying the surgery/pr ocedure. It is not possible to know either the risk of delaying the surgery or procedure or chance of getting an infection with perfect accuracy, but a joint decision was made between the patient andthe surgeon/proceduralist to proceed at this time with the scheduled surgery/procedure as indicatedon the consent form. 2. Posterior capsular opacity left eye -YAG capsulotomy left eye today-surgical care only-modifier 54 -Patient educated on posterior capsular opacity following cataract surgery. The risks, benefits, alternatives, personnel, and possible complications related to yttrium aluminum garnet (YAG) capsulotomy discussed with patient. Explained that risks include but are not limited to: increase in intraocular pressure, retinal tears/detachment, dislocation of the intraocular lens,and/or need for further procedures. Patient expresses understanding and elects to proceed with YAG capsulotomy performed by Dr. Senior. Informed consent form signed by physician and patient. Literature regarding signs and symptoms of retinal detachment offered. -The patient was offered a surgery/procedure at a [facility] facility. The surgeon/proceduralist and patient have discussed in detail the risk of exposure to and/or potential harm posed by the COVID-19 virus with having a surgery/procedure at this time versus the risk of delaying the surgery/p rocedure. It is not possible to know either the risk of delaying the surgery or procedure or chanceof getting an infection with perfect accuracy, but [...] SENIOR MD September 03, 2023 2:55 PM * Richie Jackson, OD - 09/03/2023 2:48 PM EST ASSESSMENT/PLAN: 1. Left posterior capsular opacification - ICD9: 366.50, ICD10: H26.492 (primary diagnosis) 2. Pseudophakia, left eye - ICD9: V43.1, ICD10: Z96.1 PEcIOL in [place] ~2-3 yrs ago ++Posterior capsular opacity Left eye Yag evaluation with Dr Mary Senior today 3. Combined forms of 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 - ICD9: 366.19, ICD10: H25.811 Cataract evaluation OD today September 03, 2023 2:48 PM documented in this encounterT[facility] City Hospital02-02-2024 History of Present illness Narrative* Ever Goldberg V, MD - 08/09/2023 9:51 AM EST Referring Physician: No referring provider defined for this encounter. Primary Care Physician: Austen Ontiveros MD, MD Britta Ricardotz is a 78 year old male that [...] V43.3, ICD10: Z95.2 (primary diagnosis) Echo in [facility] Clinically no stenosis - ECHO 2. Coronary artery disease involving [place] coronary artery of [place] heart with angina pectoris (HCC) - ICD9: [...] Take 1 tablet by mouth every otherday. apixaban (ELIQUIS) 5 mg tab(s) Take 1 [...] VITAMIN ORAL) Take by mouth once daily. [place]-3 Fatty Acids-Vitamin E 1,000 mg cap Take 1 capsule by mouth twice daily. acetaminophen (TYLENOL) 325 mg tablet Take 1-2 tablets by mouth every 4 hours as needed for mild tomoderate pain No current facility-administered medications for this visit. PHYSICAL EXAMINATION: Vital Signs: Blood Pressure 106/64 (BP Site: Left Arm, BP Position: Sitting) Pulse 62 Respiration 18 Height 185.4 cm (6' 1 ) Weight 84.4 kg (186 lb 1.1 oz) Oxygen Saturation 95% Body MassIndex 24.55 kg/m Body mass index is 24.55 [...] 99 Ever Goldberg MD documented in this encounterTwin City Hospital12-01-2023 Instructions* Patient Instructions* Amy Subramanian APRN.CNP - 06/07/2023 9:12 AM EST Please schedule a follow up with Dr. Bagley in one year Let us know if symptoms reoccur and heart rates sustaining greater than 110 documented in this encounterTwin City Hospital12-01-2023 History of Present illness Narrative* Amy Subramanian APRN.CNP - 06/07/2023 9:00 AM EST Images from the original note were not included. [facility] [place] [employer] Department of Cardiovascular Medicine SECTION OF CARDIAC PACING and ELECTROPHYSIOLOGY OUTPATIENT VISIT DATE June 07, 2023 OUTPATIENT VISIT TYPE ESTABLISHED PRIMARY CARE PHYSICIAN: Austen Ontiveros MD [address] [place] [address] CHIEF COMPLAINT: follow up permanent atrial fibrillation HISTORY OF PRESENT ILLNESS: Mr. Torres is a 78 year old male who presents today for followed by Dr. Goldberg, Dr. 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 High functional capacity (active with [...] below PAST MEDICAL HISTORY Diagnosis Date A-fib ([facility]) 2005 Loaded with Dofetilide 07/19/13 (self converted to sinus rhythm after first dose) Coronary artery disease involving [place] coronary artery of [place] heart with angina pectoris ([facility])06/2021 s/p CABG x3, PECK to LAD, SVG [...] 2007 TONSILLECTOMY & ADENOIDECTOMY <AGE 13 1957 SOCIAL [...] every 4 hours as needed for mild tomoderate pain aspirin, enteric coated (ADULT LOW DOSE [...] VITAMIN ORAL) Take by mouth once daily. 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 CONTACT INFORMATION: Amy Subramanian APRN.CNP, 06/07/23 [facility] [address] [facility] [place] [address] documented in this encounterTwin City Hospital08-28-2023 Miscellaneous Notes* Telephone Encounter - Grazyna Bucio RN - 03/04/2023 4:28 PM EDT Scripts printed and signed and faxed with office notes. Confirmation received and placed in basket * Telephone Encounter - Amy Subramanian APRN.CNP - 03/04/2023 4:15 PM EDT The following approved medication requests have been transmitted electronically. Requested Prescriptions Signed Prescriptions Disp Refills apixaban (ELIQUIS) 5 mg tab(s) 180 tablet 3 Sig: Take 1 tablet by mouth twice daily. Authorizing Provider: AMY SUBRAMANIAN bisoprolol (ZEBETA) 10 mg tablet 180 tablet 3 Sig: Take 2 tablets by mouth once daily. Authorizing Provider: AMY SUBRAMANIAN APRN.CNP * Telephone Encounter - Grazyna Bucio RN - 03/04/2023 1:43 PM EDT Print scripts pended, will ask MAYANK in office (Amy) to print and sign and will fax once completed * Telephone Encounter - Anita Arnold - 02/28/2023 9:30 AM EDT Patient asking for new scripts for eliquis and bisoprolol to be faxed to [place] at [phone]. [facility] and needs letter of support of why patient is on both medications above. Please fax to [phone]. documented in this encounterT[facility] Hospital05-17-2023 Miscellaneous Notes* Telephone Encounter - Brandy Mckeon APRN.CNP - 11/21/2022 3:42 PM EDT The following approved medication requests have been transmitted electronically. Requested Prescriptions Signed Prescriptions Disp Refills ELIQUIS 5 mg tab(s) 180 tablet 3 Sig: TAKE 1 TABLET BY MOUTH TWICE A DAY Authorizing Provider: DHARMESH BAGLEY Ordering User: BRANDY MCKEON APRN.DJ INSTRUCTOR * Telephone Encounter - Jessica Jaimes MA - 11/21/2022 9:48 AM EDT Received request for refill of the following [...] - 1.22 mg/dL Final documented in this encounterTwin City Hospital12-07-2022 NoteOPERATIVE NOTE OPERATION DATE: 06/13/2022 PREOPERATIVE DIAGNOSIS: Iron [...] is in good health. CC: Austen Ontiveros M.D.[facility] [id number] History of Present illness Narrative* Ever Goldberg V, MD - 06/04/2022 9:00 AM EST Referring Physician: SELF Primary Care Physician: Austen Ontiveros MD, Britta Torres is a 77 year old [...] home ASSESSMENT/PLAN: 1. Coronary artery disease involving [place] coronary artery of [place] heart with angina pectoris (HCC) - ICD9: [...] VITAMIN ORAL) Take by mouth once daily. [place]-3 Fatty Acids-Vitamin E 1,000 mg cap Take 1 capsule by mouth twice daily. acetaminophen (TYLENOL) 325 mg tablet Take 1-2 tablets by mouth every 4 hours as needed for mild tomoderate pain Current Facility-Administered Medications Medication Dose Route [...] after first dose) Coronary artery disease involving [place] coronary artery of [place] heart with angina pectoris (HCC)06/2021 s/p CABG x3, PECK to LAD, SVG [...] 99 Ever Goldberg MD documented in this encounterTwin City Hospital11-20-2022 NoteChief Complaint consultation for iron deficiency anemia and positive hemoccult cards [facility] 77 [facility] presents on [...] swallowing difficulties, no hearing loss, no ear infection(s),no nose bleeds. Cardiovascular: normal blood pressure, no [...] Cataract extraction, EXCISION LESION, (more content not included)...[facility] HospitalComment on above:Result Comment: Electronically Signed By: JOSEY TINEO, Ishaan Campbell\Date and Time Signed: 05/27/22 10:40 [id number] Miscellaneous Notes* Telephone Encounter - Kiley Zheng RN - 05/22/2022 9:14 AM EST Called and spoke to patient. He will be seeing Dr. Willams today (doctor doing his procedure) and I gave him our fax # so they can send over any specific forms they prefer. He is aware okay to proceedwith procedure per below and hold his eliquis 1-2 days and then resume following procedure. * Telephone Encounter - Amy Subramanian APRN.CNP - 05/22/2022 8:53 AM EST Images from the original note were not included. Agnes Stephens RN [facility] [employer] Emergency Veterinary Assistant; Sowmya Tijerina APRN.CNP 18 hours ago (2:47 PM) LS No [...] by GI thank you Amy Subramanian APRN.CNP * Telephone Encounter - Mary Jo Leach - 05/21/2022 1:16 PM EST Patient waiting to hear back about a release from Dr. Bagley to have a colonoscopy and EGD. Does heneed to wait a year? He will need to get off the Eliquis. Please call patient to discuss. * Telephone Encounter - Donna FRITZ - 05/11/2022 11:07 AM EDT Patient called to say he needs to get a upper Gi and Lower GI done and his doctor say he had to wait a hole year since he had heart surgery . He is seeing right now. He want to know if that is true or not . Please call the patient if this was true or not . His number is [phone] Thank you so much Donna Miller PSS documented in this encounterT[facility] City Hospital10-05-2022 Miscellaneous Notes* Telephone Encounter - Sonia Bowles APRN.CNP - 04/11/2022 11:13 AM EDT Requested Prescriptions Signed Prescriptions Disp Refills bisoprolol (ZEBETA) 10 mg tablet 60 tablet 3 Sig: TAKE 2 TABLETS BY MOUTH EVERY DAY Authorizing Provider: DHARMESH BAGLEY Ordering User: SONIA BOWLES APRN.CNP April 11, 2022 11:13 AM * Telephone Encounter - Jessica Jaimes MA - 04/11/2022 9:51 AM EDT Received request for refill of the following [...] - 1.22 mg/dL Final documented in this encounterTwin City Hospital07-14-2022 Instructions* Patient Instructions* Ever Goldberg V, MD - 01/18/2022 9:51 [...] followup appt soon ] documented in this encounterTwin City Hospital07-14-2022 History of Present illness Narrative* Ever Goldberg V, MD - 01/18/2022 8:12 AM EDT Referring Physician: Amy Subramanian 1991 [address] [facility] [address] Primary Care Physician: Austen Ontiveros MD, MD [...] better ASSESSMENT/PLAN: 1. Coronary artery disease involving [place] coronary artery of [place] heart with angina pectoris (HCC) - ICD9: [...] tablet by mouth once daily. (Patient taking differently:Take 20 mg by mouth once daily. ) [...] VITAMIN ORAL) Take by mouth once daily. [place]-3 Fatty Acids-Vitamin E (FISH OIL) 1,000 mg cap Take 1 capsule by mouth twice daily. amLODIPine (NORVASC) 2.5 mg tablet Take 1 tablet by mouth once daily. acetaminophen (TYLENOL) 325 mg tablet Take 1-2 tablets by mouth every 4 hours as needed for mild tomoderate pain Current Facility-Administered Medications Medication Dose Route [...] after first dose) Coronary artery disease involving [place] coronary artery of [place] heart with angina pectoris (HCC)06/2021 s/p CABG x3, PECK to LAD, SVG [...] 12 1957 Family Cardiac History: CAD / ID: yes: sister Do you need any refills [...] LDL Ever Goldberg MD documented in this encounterTwin City Hospital06-21-2022 Miscellaneous Notes* Telephone Encounter - Kiley Zheng RN - 12/26/2021 12:02 PM EDT Spoke to the patient in detail regarding below message. He verbalized understanding. He has enough metoprolol to last through his f/u appointment. He is monitoring his heart rate on his fitbit and said it has still been in the 120's. I told him to change positions slowly, and to call us back if hisheart rate goes too low (as he states it was in the 30's before on the metoprolol). I did clarify he is only to take 25mg BID. * Telephone Encounter - Amy Subramanian APRN.CNP - 12/21/2021 9:07 AM EDT I reviewed the message Recommendation: 1. Patient can restart metoprolol 25mg BID previously prescribed and hold the amlodipine 2. He already prescribed apixaban so continue with this medication 4. Keep follow up appointment 5. He would benefit in purchasing Digg to check heart rates with symptom changes 6. I will FYI Dr. Bagley 7. If he needs a refill metoprolol let us know thank you Amy Subramanian APRN.CNP * Telephone Encounter - Lilian Chakraborty RN - 12/21/2021 8:55 AM EDT Patient calling States for past 10 days [...] as listed Patient can be reached at [phone], may leave a message documented in this encounterTwin City Hospital04-18-2022 Miscellaneous Notes* Telephone Encounter - Ramya Wilcox - 10/23/2021 4:37 PM EDT Pt called in asking if he is to remain on eliquis, if so he only has 1 week of medication left and is requesting a refill. I did not see this listed under his medications but do see it noted in Dr. Bagley transcribed clinic notes from 09/13/21. If this is to be refilled [facility] [place] [facility] [place] [address], ). If there are any questions or concerns pleasecontact the pt. Thank you! documented in this encounterTwin City Hospital12-14-2021 History of Past illness Narrative* ProblemNoted DateResolved DateStress ewhlweuzmvfpy34/14/2021 06/26/2021 Overview: History: No prior Hx of DM. Postop. Assessment: Perioperative insulin resistance and exacerbation of hyperglycemia. Plan: SSI for glycemic control. [id number] Overview: History: Postop Assessment: Increased vascular markings improving on CXR. Net negative 1.2L in 24 hrs Plan: Continue diuresis; Monitor I&O. [id number] Overview: History: Postop. Grade I airway. Assessment: Bibasilar atelectasis on CXR. Adequate oxygenation on room air. Plan: Encourage ambulation, C&DB, PEP, pain control. Postoperative auivomssfip65/13/202112/ Overview: History: 06/19/2021: CABG x 3, AVR, TVr, MAZE, LAAC Assessment: Requiring norepinephrine Plan: Titrate to MAPs 65-75 Cardiac insufficiency following cardiac [id number] Overview: History: 06/19/2021: CABG x 3, AVR, TVr, MAZE, LAAC. Mild RV dysfunction postop requiring epinephrine, weaned off. Required AV pacing at 80 for optimal hemodynamics (capture threshold 3 mA (atrial) and 2.5 mA (ventricular)) Assessment: Prolonged period of need for AV pacing. Noted to be in AF in under pacer 06/23; remainsin AF. Adequate hemodynamics in [place] rhythm. Echo w/ RV mildly dilated, RV mild dysfunction. Plan: Continue diuresis. Preop [id number] Overview: [facility] [...] of this encounter (statuses as of 10/23/2021) [facility]12-14-2021 History of Past illness Narrative* ProblemNoted Date Resolved DateStress [id number] Overview: History: No prior Hx of DM. Postop. Assessment: Perioperative insulin resistance and exacerbation of hyperglycemia. Plan: SSI for glycemic control. [id number] Overview: History: Postop Assessment: Increased vascular markings improving on CXR. Net negative 1.2L in 24 hrs Plan: Continue diuresis; Monitor I&O. Lxbvydxwyhu16 Overview: History: Postop. Grade I airway. Assessment: Bibasilar atelectasis on CXR. Adequate oxygenation on room air. Plan: Encourage ambulation, C&DB, PEP, pain control. Postoperative zisrbdppfyh78/13/202112/ Overview: History: 06/19/2021: CABG x 3, AVR, TVr, MAZE, LAAC Assessment: Requiring norepinephrine Plan: Titrate to MAPs 65-75 Cardiac insufficiency following cardiac yfxmjry50 Overview: History: 06/19/2021: CABG x 3, AVR, TVr, MAZE, LAAC. Mild RV dysfunction postop requiring epinephrine, weaned off. Required AV pacing at 80 for optimal hemodynamics (capture threshold 3 mA (atrial) and 2.5 mA (ventricular)) Assessment: Prolonged period of need for AV pacing. Noted to be in AF in under pacer 06/23; remainsin AF. Adequate hemodynamics in [place] rhythm. Echo w/ RV mildly dilated, RV mild dysfunction. Plan: Continue diuresis. Preop Overview: [facility] PRE-[facility] [...] of this encounter (statuses as of 12/26/2021) [facility]12-14-2021 History of Past illness Narrative* ProblemNoted Date Resolved DateStress veicvjqagoynn28 Overview: History: No prior Hx of DM. Postop. Assessment: Perioperative insulin resistance and exacerbation of hyperglycemia. Plan: SSI for glycemic control. Qtynfxrzjxws34 Overview: History: Postop Assessment: Increased vascular markings improving on CXR. Net negative 1.2L in 24 hrs Plan: Continue diuresis; Monitor I&O. Jtshelbyrkb20 Overview: History: Postop. Grade I airway. Assessment: Bibasilar atelectasis on CXR. Adequate oxygenation on room air. Plan: Encourage ambulation, C&DB, PEP, pain control. Postoperative qctcpqjespo19/13/202112/ Overview: History: 06/19/2021: CABG x 3, AVR, TVr, MAZE, LAAC Assessment: Requiring norepinephrine Plan: Titrate to MAPs 65-75 Cardiac insufficiency following cardiac dzsmuoq82 Overview: History: 06/19/2021: CABG x 3, AVR, TVr, MAZE, LAAC. Mild RV dysfunction postop requiring epinephrine, weaned off. Required AV pacing at 80 for optimal hemodynamics (capture threshold 3 mA (atrial) and 2.5 mA (ventricular)) Assessment: Prolonged period of need for AV pacing. Noted to be in AF in under pacer 06/23; remainsin AF. Adequate hemodynamics in [place] rhythm. Echo w/ RV mildly dilated, RV mild dysfunction. Plan: Continue diuresis. Preop [id number] Overview: [facility] PRE-[facility] [...] of this encounter (statuses as of 01/18/2022) [facility]12-[facility] History of Past illness Narrative* ProblemNoted Date Resolved DateStress [id number] Overview: History: No prior Hx of DM. Postop. Assessment: Perioperative insulin resistance and exacerbation of hyperglycemia. Plan: SSI for glycemic control. Hzzklfmapnag62 Overview: History: Postop Assessment: Increased vascular markings improving on CXR. Net negative 1.2L in 24 hrs Plan: Continue diuresis; Monitor I&O. Nnfpzcyzmma04 Overview: History: Postop. Grade I airway. Assessment: Bibasilar atelectasis on CXR. Adequate oxygenation on room air. Plan: Encourage ambulation, C&DB, PEP, pain control. Postoperative cxtbonnkzoz45/13/202112/ Overview: History: 06/19/2021: CABG x 3, AVR, TVr, MAZE, LAAC Assessment: Requiring norepinephrine Plan: Titrate to MAPs 65-75 Cardiac insufficiency following cardiac dsnpxgi28/ Overview: History: 06/19/2021: CABG x 3, AVR, TVr, MAZE, LAAC. Mild RV dysfunction postop requiring epinephrine, weaned off. Required AV pacing at 80 for optimal hemodynamics (capture threshold 3 mA (atrial) and 2.5 mA (ventricular)) Assessment: Prolonged period of need for AV pacing. Noted to be in AF in under pacer 06/23; remainsin AF. Adequate hemodynamics in [place] rhythm. Echo w/ RV mildly dilated, RV mild dysfunction. Plan: Continue diuresis. Preop [id number] Overview: [facility] PRE-[facility] [...] of this encounter (statuses as of 03/01/2022) [facility] History of Past illness Narrative* ProblemNoted Date Resolved DateStress chblvqesdqyhp19 Overview: History: No prior Hx of DM. Postop. Assessment: Perioperative insulin resistance and exacerbation of hyperglycemia. Plan: SSI for glycemic control. Jhlhiwetxdoy59 Overview: History: Postop Assessment: Increased vascular markings improving on CXR. Net negative 1.2L in 24 hrs Plan: Continue diuresis; Monitor I&O. Srxxadndguh84 Overview: History: Postop. Grade I airway. Assessment: Bibasilar atelectasis on CXR. Adequate oxygenation on room air. Plan: Encourage ambulation, C&DB, PEP, pain control. Postoperative htstswicqqf10 Overview: History: 06/19/2021: CABG x 3, AVR, TVr, MAZE, LAAC Assessment: Requiring norepinephrine Plan: Titrate to MAPs 65-75 Cardiac insufficiency following cardiac Overview: History: 06/19/2021: CABG x 3, AVR, TVr, MAZE, LAAC. Mild RV dysfunction postop requiring epinephrine, weaned off. Required AV pacing at 80 for optimal hemodynamics (capture threshold 3 mA (atrial) and 2.5 mA (ventricular)) Assessment: Prolonged period of need for AV pacing. Noted to be in AF in under pacer 06/23; remainsin AF. Adequate hemodynamics in [place] rhythm. Echo w/ RV mildly dilated, RV mild dysfunction. Plan: Continue diuresis. Preop [id number] Overview: [facility] [...] of this encounter (statuses as of 04/11/2022) [facility]12-[facility] History of Past illness Narrative* ProblemNoted Date Resolved DateStress usenpeftpkfca01 Overview: History: No prior Hx of DM. Postop. Assessment: Perioperative insulin resistance and exacerbation of hyperglycemia. Plan: SSI for glycemic control. Bczmoskcpxxp78 Overview: History: Postop Assessment: Increased vascular markings improving on CXR. Net negative 1.2L in 24 hrs Plan: Continue diuresis; Monitor I&O. [id number] Overview: History: Postop. Grade I airway. Assessment: Bibasilar atelectasis on CXR. Adequate oxygenation on room air. Plan: Encourage ambulation, C&DB, PEP, pain control. Postoperative jcaoqerwjfq58/13/202112/ Overview: History: 06/19/2021: CABG x 3, AVR, TVr, MAZE, LAAC Assessment: Requiring norepinephrine Plan: Titrate to MAPs 65-75 Cardiac insufficiency following cardiac hbqtvqa41/ Overview: History: 06/19/2021: CABG x 3, AVR, TVr, MAZE, LAAC. Mild RV dysfunction postop requiring epinephrine, weaned off. Required AV pacing at 80 for optimal hemodynamics (capture threshold 3 mA (atrial) and 2.5 mA (ventricular)) Assessment: Prolonged period of need for AV pacing. Noted to be in AF in under pacer 06/23; remainsin AF. Adequate hemodynamics in [place] rhythm. Echo w/ RV mildly dilated, RV mild dysfunction. Plan: Continue diuresis. Preop qsjznoq98/ Overview: [facility] PRE-OP [facility]LIST [...] of this encounter (statuses as of 05/22/2022) [facility]12-[facility] History of Past illness Narrative* ProblemNoted Date Resolved DateStress nibzyzujugici60 Overview: History: No prior Hx of DM. Postop. Assessment: Perioperative insulin resistance and exacerbation of hyperglycemia. Plan: SSI for glycemic control. Mlaqxtbfqdhg01 Overview: History: Postop Assessment: Increased vascular markings improving on CXR. Net negative 1.2L in 24 hrs Plan: Continue diuresis; Monitor I&O. Vtunznxcqbk65 Overview: History: Postop. Grade I airway. Assessment: Bibasilar atelectasis on CXR. Adequate oxygenation on room air. Plan: Encourage ambulation, C&DB, PEP, pain control. Postoperative /13/202112/ Overview: History: 06/19/2021: CABG x 3, AVR, TVr, MAZE, LAAC Assessment: Requiring norepinephrine Plan: Titrate to MAPs 65-75 Cardiac insufficiency following cardiac lnczcev48 Overview: History: 06/19/2021: CABG x 3, AVR, TVr, MAZE, LAAC. Mild RV dysfunction postop requiring epinephrine, weaned off. Required AV pacing at 80 for optimal hemodynamics (capture threshold 3 mA (atrial) and 2.5 mA (ventricular)) Assessment: Prolonged period of need for AV pacing. Noted to be in AF in under pacer 06/23; remainsin AF. Adequate hemodynamics in [place] rhythm. Echo w/ RV mildly dilated, RV mild dysfunction. Plan: Continue diuresis. Preop [id number] Overview: [facility] PRE-OP CHECKLIST [...] of this encounter (statuses as of 06/04/2022) [facility]12-[facility]21 History of Past illness Narrative* ProblemNoted Date Resolved DateStress tiwqkdkfyylnr07 Overview: History: No prior Hx of DM. Postop. Assessment: Perioperative insulin resistance and exacerbation of hyperglycemia. Plan: SSI for glycemic control. Dgmmhvqnqogn51 Overview: History: Postop Assessment: Increased vascular markings improving on CXR. Net negative 1.2L in 24 hrs Plan: Continue diuresis; Monitor I&O. Uarvuloflse54/13/151316/ Overview: History: Postop. Grade I airway. Assessment: Bibasilar atelectasis on CXR. Adequate oxygenation on room air. Plan: Encourage ambulation, C&DB, PEP, pain control. Postoperative lrdelcorqmk59/13/202112/ Overview: History: 06/19/2021: CABG x 3, AVR, TVr, MAZE, LAAC Assessment: Requiring norepinephrine Plan: Titrate to MAPs 65-75 Cardiac insufficiency following cardiac ivthkln50/ Overview: History: 06/19/2021: CABG x 3, AVR, TVr, MAZE, LAAC. Mild RV dysfunction postop requiring epinephrine, weaned off. Required AV pacing at 80 for optimal hemodynamics (capture threshold 3 mA (atrial) and 2.5 mA (ventricular)) Assessment: Prolonged period of need for AV pacing. Noted to be in AF in under pacer 06/23; remainsin AF. Adequate hemodynamics in [place] rhythm. Echo w/ RV mildly dilated, RV mild dysfunction. Plan: Continue diuresis. Preop lzxsnjy96/ Overview: [facility] PRE-OP CHECKLIST [...] of this encounter (statuses as of 08/31/2022) [facility]12[facility]21 History of Past illness Narrative* ProblemNoted Date Resolved DateStress yxglcismlfxzi84 Overview: History: No prior Hx of DM. Postop. Assessment: Perioperative insulin resistance and exacerbation of hyperglycemia. Plan: SSI for glycemic control. Blrzlqrytqai39 Overview: History: Postop Assessment: Increased vascular markings improving on CXR. Net negative 1.2L in 24 hrs Plan: Continue diuresis; Monitor I&O. Vzjoxymmfjp69 Overview: History: Postop. Grade I airway. Assessment: Bibasilar atelectasis on CXR. Adequate oxygenation on room air. Plan: Encourage ambulation, C&DB, PEP, pain control. Postoperative mizwefnqsvl01/13/202112/ Overview: History: 06/19/2021: CABG x 3, AVR, TVr, MAZE, LAAC Assessment: Requiring norepinephrine Plan: Titrate to MAPs 65-75 Cardiac insufficiency following cardiac twefpaz67 Overview: History: 06/19/2021: CABG x 3, AVR, TVr, MAZE, LAAC. Mild RV dysfunction postop requiring epinephrine, weaned off. Required AV pacing at 80 for optimal hemodynamics (capture threshold 3 mA (atrial) and 2.5 mA (ventricular)) Assessment: Prolonged period of need for AV pacing. Noted to be in AF in under pacer 06/23; remainsin AF. Adequate hemodynamics in [place] rhythm. Echo w/ RV mildly dilated, RV mild dysfunction. Plan: Continue diuresis. Preop [id number] Overview: [facility] PRE-OP CHECKLIST [...] of this encounter (statuses as of 11/22/2022) [facility] History of Past illness Narrative* ProblemNoted Date Diagnosed DateResolved DateStress [id number] Overview: History: No prior Hx of DM. Postop. Assessment: Perioperative insulin resistance and exacerbation of hyperglycemia. Plan: SSI for glycemic control. Vhmbgetjpcyq02 Overview: History: Postop Assessment: Increased vascular markings improving on CXR. Net negative 1.2L in 24 hrs Plan: Continue diuresis; Monitor I&O. Apsvtrerwtg63/13/202112/ Overview: History: Postop. Grade I airway. Assessment: Bibasilar atelectasis on CXR. Adequate oxygenation on room air. Plan: Encourage ambulation, C&DB, PEP, pain control. Postoperative eylyapcbmmw63/13/202112/ Overview: History: 06/19/2021: CABG x 3, AVR, TVr, MAZE, LAAC Assessment: Requiring norepinephrine Plan: Titrate to MAPs 65-75 Cardiac insufficiency following cardiac pkowgmk12 Overview: History: 06/19/2021: CABG x 3, AVR, TVr, MAZE, LAAC. Mild RV dysfunction postop requiring epinephrine, weaned off. Required AV pacing at 80 for optimal hemodynamics (capture threshold 3 mA (atrial) and 2.5 mA (ventricular)) Assessment: Prolonged period of need for AV pacing. Noted to be in AF in under pacer 06/23; remainsin AF. Adequate hemodynamics in [place] rhythm. Echo w/ RV mildly dilated, RV mild dysfunction. Plan: Continue diuresis. Preop [id number] Overview: [facility] PRE-OP CHECKLIST [...] of this encounter (statuses as of 02/13/2023) [facility] History of Past illness Narrative* ProblemNoted Date Diagnosed DateResolved DateStress qzfazyadgycss06 Overview: History: No prior Hx of DM. Postop. Assessment: Perioperative insulin resistance and exacerbation of hyperglycemia. Plan: SSI for glycemic control. Njnojletnszf51 Overview: History: Postop Assessment: Increased vascular markings improving on CXR. Net negative 1.2L in 24 hrs Plan: Continue diuresis; Monitor I&O. Lvkcnxztxin66 Overview: History: Postop. Grade I airway. Assessment: Bibasilar atelectasis on CXR. Adequate oxygenation on room air. Plan: Encourage ambulation, C&DB, PEP, pain control. Postoperative jznwruktgky95/13/202112/ Overview: History: 06/19/2021: CABG x 3, AVR, TVr, MAZE, LAAC Assessment: Requiring norepinephrine Plan: Titrate to MAPs 65-75 Cardiac insufficiency following cardiac Overview: History: 06/19/2021: CABG x 3, AVR, TVr, MAZE, LAAC. Mild RV dysfunction postop requiring epinephrine, weaned off. Required AV pacing at 80 for optimal hemodynamics (capture threshold 3 mA (atrial) and 2.5 mA (ventricular)) Assessment: Prolonged period of need for AV pacing. Noted to be in AF in under pacer 06/23; remainsin AF. Adequate hemodynamics in [place] rhythm. Echo w/ RV mildly dilated, RV mild dysfunction. Plan: Continue diuresis. Preop aalpqlz02 Overview: [facility] PRE-OP CHECKLIST [...] of this encounter (statuses as of 03/05/2023) [facility] History of Past illness Narrative* ProblemNoted Date Diagnosed DateResolved DateStress qteqmuqwroxre61 Overview: History: No prior Hx of DM. Postop. Assessment: Perioperative insulin resistance and exacerbation of hyperglycemia. Plan: SSI for glycemic control. Czovaptxlgij65 Overview: History: Postop Assessment: Increased vascular markings improving on CXR. Net negative 1.2L in 24 hrs Plan: Continue diuresis; Monitor I&O. Wkenfwwwhda36/13/202112/ Overview: History: Postop. Grade I airway. Assessment: Bibasilar atelectasis on CXR. Adequate oxygenation on room air. Plan: Encourage ambulation, C&DB, PEP, pain control. Postoperative ctabitijnsw88/13/202112/ Overview: History: 06/19/2021: CABG x 3, AVR, TVr, MAZE, LAAC Assessment: Requiring norepinephrine Plan: Titrate to MAPs 65-75 Cardiac insufficiency following cardiac / Overview: History: 06/19/2021: CABG x 3, AVR, TVr, MAZE, LAAC. Mild RV dysfunction postop requiring epinephrine, weaned off. Required AV pacing at 80 for optimal hemodynamics (capture threshold 3 mA (atrial) and 2.5 mA (ventricular)) Assessment: Prolonged period of need for AV pacing. Noted to be in AF in under pacer 06/23; remainsin AF. Adequate hemodynamics in [place] rhythm. Echo w/ RV mildly dilated, RV mild dysfunction. Plan: Continue diuresis. Preop [id number] Overview: [facility] PRE-OP CHECKLIST [...] of this encounter (statuses as of 06/07/2023) [facility] History of Past illness Narrative* ProblemNoted Date Diagnosed DateResolved DateStress qrasqbrtiqdnr05 Overview: History: No prior Hx of DM. Postop. Assessment: Perioperative insulin resistance and exacerbation of hyperglycemia. Plan: SSI for glycemic control. Oiebiptrvqem85 Overview: History: Postop Assessment: Increased vascular markings improving on CXR. Net negative 1.2L in 24 hrs Plan: Continue diuresis; Monitor I&O. Znzvqqialqm77 Overview: History: Postop. Grade I airway. Assessment: Bibasilar atelectasis on CXR. Adequate oxygenation on room air. Plan: Encourage ambulation, C&DB, PEP, pain control. Postoperative ujkqzyyixff37/13/202112/ Overview: History: 06/19/2021: CABG x 3, AVR, TVr, MAZE, LAAC Assessment: Requiring norepinephrine Plan: Titrate to MAPs 65-75 Cardiac insufficiency following cardiac zolxgcm09 Overview: History: 06/19/2021: CABG x 3, AVR, TVr, MAZE, LAAC. Mild RV dysfunction postop requiring epinephrine, weaned off. Required AV pacing at 80 for optimal hemodynamics (capture threshold 3 mA (atrial) and 2.5 mA (ventricular)) Assessment: Prolonged period of need for AV pacing. Noted to be in AF in under pacer 06/23; remainsin AF. Adequate hemodynamics in [place] rhythm. Echo w/ RV mildly dilated, RV mild dysfunction. Plan: Continue diuresis. Preop edmmcob16/ Overview: [facility] PRE-OP CHECKLIST [...] of this encounter (statuses as of 08/09/2023) [facility] History of Past illness Narrative* ProblemNoted Date Diagnosed DateResolved DateStress eqfclcjqxcumf64 Overview: History: No prior Hx of DM. Postop. Assessment: Perioperative insulin resistance and exacerbation of hyperglycemia. Plan: SSI for glycemic control. Ibtdpfsoncfc51 Overview: History: Postop Assessment: Increased vascular markings improving on CXR. Net negative 1.2L in 24 hrs Plan: Continue diuresis; Monitor I&O. Cvklnocpjsi43 Overview: History: Postop. Grade I airway. Assessment: Bibasilar atelectasis on CXR. Adequate oxygenation on room air. Plan: Encourage ambulation, C&DB, PEP, pain control. Postoperative vcwhbpyheug59/13/202112/ Overview: History: 06/19/2021: CABG x 3, AVR, TVr, MAZE, LAAC Assessment: Requiring norepinephrine Plan: Titrate to MAPs 65-75 Cardiac insufficiency following cardiac Overview: History: 06/19/2021: CABG x 3, AVR, TVr, MAZE, LAAC. Mild RV dysfunction postop requiring epinephrine, weaned off. Required AV pacing at 80 for optimal hemodynamics (capture threshold 3 mA (atrial) and 2.5 mA (ventricular)) Assessment: Prolonged period of need for AV pacing. Noted to be in AF in under pacer 06/23; remainsin AF. Adequate hemodynamics in [place] rhythm. Echo w/ RV mildly dilated, RV mild dysfunction. Plan: Continue diuresis. Preop Overview: [facility] PRE-OP CHECKLIST [...] of this encounter (statuses as of 09/04/2023) [facility] History of Past illness Narrative* ProblemNoted Date Diagnosed DateResolved DateStress xcljphwnyvcsw70 Overview: History: No prior Hx of DM. Postop. Assessment: Perioperative insulin resistance and exacerbation of hyperglycemia. Plan: SSI for glycemic control. Tngviqfdnedo60 Overview: History: Postop Assessment: Increased vascular markings improving on CXR. Net negative 1.2L in 24 hrs Plan: Continue diuresis; Monitor I&O. Rhmjugnriaj76 Overview: History: Postop. Grade I airway. Assessment: Bibasilar atelectasis on CXR. Adequate oxygenation on room air. Plan: Encourage ambulation, C&DB, PEP, pain control. Postoperative ytyuqegibyr20/13/202112/ Overview: History: 06/19/2021: CABG x 3, AVR, TVr, MAZE, LAAC Assessment: Requiring norepinephrine Plan: Titrate to MAPs 65-75 Cardiac insufficiency following cardiac metzxzo46 Overview: History: 06/19/2021: CABG x 3, AVR, TVr, MAZE, LAAC. Mild RV dysfunction postop requiring epinephrine, weaned off. Required AV pacing at 80 for optimal hemodynamics (capture threshold 3 mA (atrial) and 2.5 mA (ventricular)) Assessment: Prolonged period of need for AV pacing. Noted to be in AF in under pacer 06/23; remainsin AF. Adequate hemodynamics in [place] rhythm. Echo w/ RV mildly dilated, RV mild dysfunction. Plan: Continue diuresis. 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 Nonrheumatic aortic valve stenosis Aortic valve disorders S/P AVR (aortic valve replacement) Heart valve replaced by other means Pulmonary hypertension (HCC) Other chronic pulmonary heart diseases Atrial fibrillation, persistent (HCC) Atrial fibrillation Chronic diastolic (congestive) heart failure (HCC) [facility] Diagnosis Atrial fibrillation, persistent (HCC)- Primary Atrial fibrillation [facility] Medication refill [Z76.0 (ICD-10-CM)]- Primary Issue of repeat prescriptions [facility] Medication management [Z79.899 (ICD-10-CM)]- Primary Encounter for long-term (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 other medications [facility] Diagnosis 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 S/P AVR (aortic valve replacement) bio Heart valve replaced by other means Pulmonary hypertension (HCC) Other chronic pulmonary heart diseases Chronic a-fib (HCC) Atrial fibrillation Pure hypercholesterolemia [facility] Diagnosis Chronic atrial fibrillation (HCC)- Primary [facility]rial [facility] Medication refill [Z76.0]- Primary Issue of repeat prescriptions [facility] Diagnosis Permanent atrial fibrillation (HCC)- Primary Atrial fibrillation Essential hypertension Unspecified essential hypertension [facility] Diagnosis S/P AVR- Primary Heart valve replaced by other means Coronary artery disease involving [place] coronary artery of [place] heart with angina pectoris (HCC) Pulmonary hypertension (HCC) Other chronic pulmonary heart diseases Chronic a-fib (HCC) Atrial fibrillation Pure hypercholesterolemia Other forms of dyspnea [facility] Diagnosis Left posterior capsular opacification- Primary After-cataract, unspecified Pseudophakia, left eye Lens replaced by other means Combined forms of 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 Other and combined forms of senile cataract [facility] Diagnosis Combined forms of 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 Other and combined forms of senile cataract Combined forms of 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 Other and combined forms of senile cataract [facility] Pre-operative clearance- Primary Preoperative examination, unspecified Chronic a-fib (HCC) Atrial fibrillation Coronary artery disease involving [place] coronary artery of [place] heart with angina pectoris (HCC) Primary hypertension [...] AM EDTAssociated Problem(s): Coronary artery disease involving [place] coronary artery of [place] heart with angina pectoris (HCC) History of [...] rate controlled A-fib [facility] Pre-operative clearance- Primary Preoperative examination, unspecified Chronic a-fib (HCC) Atrial fibrillation Coronary artery disease involving [place] coronary artery of [place] heart with angina pectoris (HCC) Primary hypertension Unspecified essential hypertension Pure hypercholesterolemia History of cardioversion Personal history of surgery to heart and great vessels, presenting hazards to health Permanent atrial fibrillation (HCC) Atrial fibrillation Aortic valve stenosis, etiology of cardiac valve disease unspecified Pulmonary hypertension (HCC) Other chronic pulmonary heart diseases Coronary artery disease involving coronary bypass graft of [place] heart without angina pectoris- Primary [facility] Diagnosis Pre-operative clearance- Primary Preoperative examination, unspecified Chronic a-fib (HCC) Atrial fibrillation Coronary artery disease involving [place] coronary artery of [place] heart with angina pectoris (HCC) Primary hypertension Unspecified essential hypertension Pure hypercholesterolemia History of cardioversion Personal history of surgery to heart and great vessels, presenting hazards to health Permanent atrial fibrillation (HCC) Atrial fibrillation Aortic valve stenosis, etiology of cardiac valve disease unspecified Pulmonary hypertension (HCC) Other chronic pulmonary heart diseases 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 Long-term (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 anticoagulants [facility] Diagnosis Encounter for Medicare annual wellness exam- Primary Advance directive in chart Encounter for screening for other disorder Screening for alcohol problem Screening for alcoholism 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 Mild persistent asthma without complication (CMS/HCC) Lung granuloma (CMS/HCC) Pulmonary hypertension (CMS/HCC) Other chronic pulmonary heart diseases Atherosclerosis of [place] coronary artery of [place] heart without angina pectoris (CMS/HCC) Chronic diastolic heart failure (CMS/HCC) Chronic diastolic heart failure Bilateral carotid artery stenosis Occlusion and stenosis of carotid artery without mention of cerebral infarction Primary hypertension (CMS/HCC) Unspecified essential hypertension Longstanding persistent atrial fibrillation (CMS/HCC) 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* Diagnosis Neoplasm, uncertain whether benign or malignant Changing skin lesion Unspecified disorder of skin and subcutaneous tissue Polypharmacy Issue of repeat prescriptions BMI 22.0-22.9, adult [facility] Diagnosis Pre-operative clearance- Primary Preoperative examination, unspecified Chronic a-fib (HCC) Atrial fibrillation Coronary artery disease involving [place] coronary artery of [place] heart with angina pectoris (HCC) Primary hypertension Unspecified essential hypertension Pure hypercholesterolemia History of cardioversion Personal history of surgery to heart and great vessels, presenting hazards to health Permanent atrial fibrillation (HCC) Atrial fibrillation Aortic valve stenosis, etiology of cardiac valve disease unspecified Pulmonary hypertension (HCC) Other chronic pulmonary heart diseases Atrial fibrillation, chronic (HCC)- Primary Atrial fibrillation [facility] Diagnosis Neoplasm, uncertain whether benign or malignant Changing skin lesion Unspecified disorder of skin and subcutaneous tissue Personal history of skin cancer Personal history of other malignant neoplasm of skin [facility] noteNo assessment information availableFisher-[facility] Work Phone: Evaluation note* Diagnosis Pre-operative clearance- Primary Preoperative examination, unspecified Chronic a-fib (HCC) Atrial fibrillation Coronary artery disease involving [place] coronary artery of [place] heart with angina pectoris Primary hypertension Unspecified essential hypertension Pure hypercholesterolemia History of cardioversion Personal history of surgery to heart and great vessels, presenting hazards to health Permanent atrial fibrillation (HCC) Atrial fibrillation Aortic valve stenosis, etiology of cardiac valve disease unspecified Pulmonary hypertension (HCC) Other chronic pulmonary heart diseases Coronary artery disease involving coronary bypass graft of [place] heart without angina pectoris- Primary S/P AVR Heart valve replaced by other means Pulmonary hypertension (HCC) Other chronic pulmonary heart diseases Paroxysmal A-fib (HCC) Atrial fibrillation Chronic diastolic (congestive) heart failure (HCC) 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 Long-term (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 anticoagulants [facility] Diagnosis Pneumonia of right lower lobe due to infectious organism- Primary Polypharmacy Issue of repeat prescriptions BMI 22.0-22.9, adult Mild persistent asthma without complication (CMS/HCC) [facility] Diagnosis Pre-operative clearance- Primary Preoperative examination, unspecified Chronic a-fib (HCC) Atrial fibrillation Coronary artery disease involving [place] coronary artery of [place] heart with angina pectoris Primary hypertension Unspecified essential hypertension Pure hypercholesterolemia History of cardioversion Personal history of surgery to heart and great vessels, presenting hazards to health Permanent atrial fibrillation (HCC) Atrial fibrillation Aortic valve stenosis, etiology of cardiac valve disease unspecified Pulmonary hypertension (HCC) Other chronic pulmonary heart diseases Heat syncope, initial encounter- Primary Coronary artery disease involving coronary bypass graft of [place] heart without angina pectoris [facility] Diagnosis Syncope and collapse- Primary Longstanding persistent atrial fibrillation (HCC) Atherosclerosis of [place] coronary artery of [place] heart without angina pectoris Mild persistent asthma without complication (HCC) RBBB (right bundle branch block) Right bundle branch block documented in this encounter [facility]* Diagnosis Pre-operative clearance- Primary Preoperative examination, unspecified Chronic a-fib (HCC) Atrial fibrillation Coronary artery disease involving [place] coronary artery of [place] heart with angina pectoris Primary hypertension Unspecified [...] valve disease unspecified Coronary artery disease involving [place] coronary artery of [place] heart without angina pectoris [facility] Diagnosis Right foot pain- Primary Pain in soft tissues of limb documented in this encounter [facility]* Diagnosis Pre-operative clearance- Primary Preoperative examination, unspecified Chronic a-fib (HCC) Atrial fibrillation Coronary artery disease involving [place] coronary artery of [place] heart with angina pectoris Primary hypertension Unspecified essential hypertension Pure hypercholesterolemia History of cardioversion Personal history of surgery to heart and great vessels, presenting hazards to health Permanent atrial fibrillation (HCC) Atrial fibrillation Aortic valve stenosis, etiology of cardiac valve disease unspecified Pulmonary hypertension (HCC) Other chronic pulmonary heart diseases Permanent atrial fibrillation (HCC)- Primary Atrial fibrillation Tachy-maría syndrome (HCC) Sinoatrial node dysfunction Essential hypertension Unspecified essential hypertension 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 Long-term (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 anticoagulants Syncope, unspecified syncope type [facility] Diagnosis Pre-operative clearance- Primary Preoperative examination, unspecified Chronic a-fib (HCC) Atrial fibrillation Coronary artery disease involving [place] coronary artery of [place] heart with angina pectoris Primary hypertension Unspecified essential hypertension Pure hypercholesterolemia History of cardioversion Personal history of surgery to heart and great vessels, presenting hazards to health Permanent atrial fibrillation (HCC) Atrial fibrillation Aortic valve stenosis, etiology of cardiac valve disease unspecified Pulmonary hypertension (HCC) Other chronic pulmonary heart diseases Coronary artery disease involving coronary bypass graft of [place] heart without angina pectoris S/P AVR Heart valve replaced by other means Pulmonary hypertension (HCC) Other chronic pulmonary heart diseases Pacemaker reprogramming/check Fitting and adjustment of cardiac pacemaker [facility] Diagnosis Encounter for Medicare annual wellness exam- Primary Advance directive in chart Encounter for screening for other disorder Screening for alcohol problem Screening for alcoholism Osteopenia of neck of right femur Screening for osteoporosis Special screening for osteoporosis documented in this encounter [facility] Discharge instructions No data available for this section [facility] [place] Progress note No data available for this section [facility] [place] Reason for referral (narrative)* Outpatient Procedure (Routine) - Pending ReviewSpecialtyDiagnoses / ProceduresReferred By Contact Referred To [facility] Diagnoses Chronic atrial fibrillation (HCC) Procedures ECG COMPLETE ECG ROUTINE ECG W/LEAST 12 LDS W/I&[place] [address] [place] [address] [facility] [address] [address] Referral IDStatusasonShelby DateExpiration DateVisits RequestedVisits [id number] Review Auto-Generated Referral / [facility] for referral (narrative)* Outpatient Procedure (Routine) - Pending ReviewSpecialtyDiagnoses / ProceduresReferred By ContactReferred To [facility] Diagnoses Permanent atrial fibrillation (HCC) Procedures ECG COMPLETE ECG ROUTINE ECG W/LEAST 12 LDS W/I&R Amy Subramanian, [email or web address] INSTRUCTOR [address] [place] [address] [facility] [place] [address] [place] [address] Referral IDStatusReasonStart DateExpiration DateVisits RequestedVisits [id number] Review Auto-Generated Referral / [facility] for referral (narrative)* Outpatient Procedure (Routine) - AuthorizedSpecialtyDiagnoses / ProceduresReferred By ContactReferred To [facility] [place] Diagnoses S/P AVR Pulmonary hypertension (HCC) Procedures ECHO ECHO TTHRC R-T 2D W/WOM-MODE COMPL SPEC&[place] [address] [place] [address] [facility] [address] [address] Referral IDStatusReasonStart DateExpiration DateVisits RequestedVisits [id number] Auto-Generated Referral / [facility] for visit Narrative* Outpatient Procedure (Routine) - ClosedSpecialtyDiagnoses / ProceduresReferred By ContactReferred To [facility] [place] Diagnoses Coronary artery disease involving coronary bypass graft of [place] heart without angina pectoris S/P AVR Pulmonary hypertension (HCC) Procedures ECHO ECHO TTHRC R-T 2D W/WOM-MODE COMPL SPEC&[place] [address] [place] [address] Phone: tel: fax: [address] [address] Referral IDStatusReasonSttilton DateExpiration DateVisits RequestedVisits [id number] Auto-Generated Referral / [facility] Advance Directives No Advanced Directives Records FoundDocuments on File TypeDate RecordedPatient RepresentativeExplanationAdvance Directive(s)06/07/2021 2:19 PMAdvance Directive(s)05/29/2021 3:32 PMAdvance Directive(s)03/30/2021 6:38 AMAdvance Directive(s)03/28/2021 3:26 PMTypeDate RecordedPatient Supervisor Waterworks ExplanationPower of Attorney01/02/2023 1:48 PMAdvance Directives and Living Will Power Of AttorneyPower of Attorney12/11/2021 11:29 AMTypeDate RecordedPatient RepresentativeExplanationPower of Attorney01/02/2023 1:48 PM Advance Directives and Living Will Power Of AttorneyPower of Attorney12/11/2021 11:29 AM Summary Purpose Family History No Family History Records FoundNo Family History Records FoundNo Family History Records FoundNo Family History Records FoundNo Family History Records FoundNo Family History Records FoundNo Family History Records FoundNo Family History Records Found Additional Source Comments Source Comments (unrecognize d section and content) In the event this informatio n is protected by the Federal Confidentiality of Alcohol and Drug Abuse Patient Records regulations: The Federal rules restrict any use of the information to criminally investigate or prosecute any alcohol or drug abuse patient.[facility] the event this information is protected by the Federal Confidentiality of Alcohol and Drug Abuse Patient Records regulations: The Federal rules restrict any use of the information to criminally investigate or prosecute any alcohol or drug abuse patient.[facility] HospitalIn the event this information is protected by the Federal Confidentiality of Alcohol and Drug Abuse Patient Records regulations: The Federal rules restrict any use of the information to criminally investigate or prosecute any alcohol or drug abuse patient.[facility] HospitalIn the event this information is protected by the Federal Confidentiality of Alcohol and Drug Abuse Patient Records regulations: The Federal rules restrict any use of the information to criminally investigate or prosecute any alcohol or drug abuse patient.[facility] HospitalIn the event this information is protected by the Federal Confidentiality of Alcohol and Drug Abuse Patient Records regulations: The Federal rules restrict any use of the information to criminally investigate or prosecute any alcohol or drug abuse patient.[facility] HospitalIn the event this information is protected by the Federal Confidentiality of Alcohol and Drug Abuse Patient Records regulations: The Federal rules restrict any use of the information to criminally investigate or prosecute any alcohol or drug abuse patient.[facility] HospitalIn the event this information is protected by the Federal Confidentiality of Alcohol and Drug Abuse Patient Records regulations: The Federal rules restrict any use of the information to criminally investigate or prosecute any alcohol or drug abuse patient.[facility] HospitalIn the event this information is protected by the Federal Confidentiality of Alcohol and Drug Abuse Patient Records regulations: The Federal rules restrict any use of the information to criminally investigate or prosecute any alcohol or drug abuse patient.[facility] HospitalIn the event this information is protected by the Federal Confidentiality of Alcohol and Drug Abuse Patient Records regulations: The Federal rules restrict any use of the information to criminally investigate or prosecute any alcohol or drug abuse patient.[facility] HospitalIn the event this information is protected by the Federal Confidentiality of Alcohol and Drug Abuse Patient Records regulations: The Federal rules restrict any use of the information to criminally investigate or prosecute any alcohol or drug abuse patient.[facility] HospitalIn the event this information is protected by the Federal Confidentiality of Alcohol and Drug Abuse Patient Records regulations: The Federal rules restrict any use of the information to criminally investigate or prosecute any alcohol or drug abuse patient.[facility] HospitalIn the event this information is protected by the Federal Confidentiality of Alcohol and Drug Abuse Patient Records regulations: The Federal rules restrict any use of the information to criminally investigate or prosecute any alcohol or drug abuse patient.[facility] HospitalIn the event this information is protected by the Federal Confidentiality of Alcohol and Drug Abuse Patient Records regulations: The Federal rules restrict any use of the information to criminally investigate or prosecute any alcohol or drug abuse patient.[facility] HospitalIn the event this information is protected by the Federal Confidentiality of Alcohol and Drug Abuse Patient Records regulations: The Federal rules restrict any use of the information to criminally investigate or prosecute any alcohol or drug abuse patient.[facility] HospitalIn the event this information is protected by the Federal Confidentiality of Alcohol and Drug Abuse Patient Records regulations: The Federal rules restrict any use of the information to criminally investigate or prosecute any alcohol or drug abuse patient.[facility] HospitalIn the event this information is protected by the Federal Confidentiality of Alcohol and Drug Abuse Patient Records regulations: The Federal rules restrict any use of the information to criminally investigate or prosecute any alcohol or drug abuse patient.[facility] HospitalIn the event this information is protected by the Federal Confidentiality of Alcohol and Drug Abuse Patient Records regulations: The Federal rules restrict any use of the information to criminally investigate or prosecute any alcohol or drug abuse patient.[facility] HospitalIn the event this information is protected by the Federal Confidentiality of Alcohol and Drug Abuse Patient Records regulations: The Federal rules restrict any use of the information to criminally investigate or prosecute any alcohol or drug abuse patient.[facility] HospitalIn the event this information is protected by the Federal Confidentiality of Alcohol and Drug Abuse Patient Records regulations: The Federal rules restrict any use of the information to criminally investigate or prosecute any alcohol or drug abuse patient.[facility] HospitalIn the event this information is protected by the Federal Confidentiality of Alcohol and Drug Abuse Patient Records regulations: The Federal rules restrict any use of the information to criminally investigate or prosecute any alcohol or drug abuse patient.[facility] HospitalIn the event this information is protected by the Federal Confidentiality of Alcohol and Drug Abuse Patient Records regulations: The Federal rules restrict any use of the information to criminally investigate or prosecute any alcohol or drug abuse patient.[facility] HospitalIn the event this information is protected by the Federal Confidentiality of Alcohol and Drug Abuse Patient Records regulations: The Federal rules restrict any use of the information to criminally investigate or prosecute any alcohol or drug abuse patient.[facility] HospitalIn the event this information is protected by the Federal Confidentiality of Alcohol and Drug Abuse Patient Records regulations: The Federal rules restrict any use of the information to criminally investigate or prosecute any alcohol or drug abuse patient.[facility] HospitalIn the event this information is protected by the Federal Confidentiality of Alcohol and Drug Abuse Patient Records regulations: The Federal rules restrict any use of the information to criminally investigate or prosecute any alcohol or drug abuse patient.[facility] HospitalIn the event this information is protected by the Federal Confidentiality of Alcohol and Drug Abuse Patient Records regulations: The Federal rules restrict any use of the information to criminally investigate or prosecute any alcohol or drug abuse patient.[facility] HospitalIn the event this information is protected by the Federal Confidentiality of Alcohol and Drug Abuse Patient Records regulations: The Federal rules restrict any use of the information to criminally investigate or prosecute any alcohol or drug abuse patient.[facility] HospitalIn the event this information is protected by the Federal Confidentiality of Alcohol and Drug Abuse Patient Records regulations: The Federal rules restrict any use of the information to criminally investigate or prosecute any alcohol or drug abuse patient.[facility] HospitalIn the event this information is protected by the Federal Confidentiality of Alcohol and Drug Abuse Patient Records regulations: The Federal rules restrict any use of the information to criminally investigate or prosecute any alcohol or drug abuse patient.[facility] HospitalIn the event this information is protected by the Federal Confidentiality of Alcohol and Drug Abuse Patient Records regulations: The Federal rules restrict any use of the information to criminally investigate or prosecute any alcohol or drug abuse patient.[facility] HospitalIn the event this information is protected by the Federal Confidentiality of Alcohol and Drug Abuse Patient Records regulations: The Federal rules restrict any use of the information to criminally investigate or prosecute any alcohol or drug abuse patient.[facility] Reason for Visit (unrecogniz ed section and content) ReasonCommentsCare CoordinationReasonCommentsElevated HRReasonCommentsFollow Up ReasonCommentsRefill RequestReasonCommentsPatient QuestionReasonCommentsFollow UpReasonOnset DateCommentsRefill [id number]/28/2023ReasonCommentsCardiology Follow UpReasonCommentsEstablished Patient Follow-Up6 mo f/u - odd sensation about once a month/every other month, starts with a tingling sensation to his nose, followed by tingles to chest/abdomen, to his arms and then a chilled sensation and it passes. Does not linger. Happens at rest.ReasonComments Posterior Capsule Opacification EvaluationLEFT EYECataract EvaluationRIGHT EYE ReasonCommentsResultsReasonCommentsPre-Op ExamReasonCommentsPre-Op VisitReason Commentscovid exposure / questionsReasonCommentsOrdersReasonCommentsMedication ProblemReasonCommentsAnnual ExamReasonCommentspunch bxReasonCommentsEstablished PatientReasonCommentsProcedureReasonCommentsEstablished PatientReasonCommentsURI ReasonCommentssyncopal episodeReasonCommentsFollow-upReasonCommentsFoot Pain ReasonCommentsEstablished Patient Care Teams (unrecognized sec tion and content) Team MemberRelationshipSpecialtyStart DateEnd Date Austen Ontiveros [address] [facility] [place] [address] PCP - GeneralFamily Practice02/05/17Team MemberRelationshipSpecialtyStart DateEnd Date Austen Ontiveros MD [address] [facility] [place] [address] (Fax) PCP - GeneralFamily Practice02/05/17Team MemberRelationshipSpecialtyStart DateEnd Date Austen Ontiveros MD [address] [facility] [place] [address] (Fax) PCP - GeneralFamily Practice02/05/17Team MemberRelationshipSpecialtyStart DateEnd Date Austen Ontiveros MD [address] [facility] [place] [address] (Fax) PCP - GeneralFamily Practice02/05/17Team MemberRelationshipSpecialtyStart DateEnd Date Austen Ontiveros MD [address] [facility] [place] [address] (Fax) PCP - GeneralFamily Medicine02/05/17Team MemberRelationshipSpecialtyStart DateEnd Date Austen Ontiveros MD [address] [facility] [place] [address] (Fax) PCP - GeneralFamily Medicine02/05/17Team MemberRelationshipSpecialtyStart DateEnd Date Austen Ontiveros MD [address] [facility] [place] [address] (Fax) PCP - GeneralFamily Medicine02/05/17Team MemberRelationshipSpecialtyStart DateEnd Date Austen Ontiveros MD [address] [facility] [place] [address] (Fax) PCP - GeneralFamily Medicine02/05/17Team MemberRelationshipSpecialtyStart DateEnd Date Austen Ontiveros MD [address] [place] [address] (Fax) PCP - Generalmily Medicine02/05/17Team MemberRelationshipSpecialtyStart DateEnd Date Austen Ontiveros MD [address] [place] [address] (Fax) PCP - Generalmi Medicine02/05/17Team MemberRelationshipSpecialtyStart DateEnd Date Austen Ontiveros MD [address] [place] [address] (Fax) [facility]17Team MemberRelationshipSpecialtyStart DateEnd Date Austen Ontiveros MD [address] [place] [address] (Fax) PCP - Generalmi Medicine02/05/17Team MemberRelationshipSpecialtyStart DateEnd Date Austen Ontiveros MD [address] [place] [address] (Fax) PCP - Generalmi Medicine02/05/17Team MemberRelationshipSpecialtyStart DateEnd Date Austen Ontiveros MD [address] [place] [address] (Fax) PCP - [facility]11/29/22 Austen Ontiveros MD [address] [place] [address] PCP - GeneralFamily Medicine12/17/22Team MemberRelationshipSpecialtyStart DateEnd Date Austen Ontiveros MD [address] [place] [address] (Fax) PCP - Generalmily Medicine02/05/17Team MemberRelationshipSpecialtyStart DateEnd Date Austen Ontiveros MD [address] [place] [address] (Fax) PCP - [facility] Medicine02/05/17Team MemberRelationshipSpecialtyStart DateEnd Date Austen Ontiveros MD [address] [place] [address] (Fax) PCP - [facility] Medicine02/05/17Team MemberRelationshipSpecialtyStart DateEnd Date Austen Ontiveros MD [address] [place] [address] (Fax) [facility] - [facility]/17Team MemberRelationshipSpecialtyStart DateEnd Date Austen Ontiveros MD [address] [place] [address] (Fax) PCP - Generalmily Medicine02/05/17Team MemberRelationshipSpecialtyStart DateEnd Date Austen Ontiveros MD [address] [place] [address] (Fax) PCP - GeneralFamily Medicine02/05/17Team MemberRelationshipSpecialtyStart DateEnd Date Austen Ontiveros MD [address] [place] [address] (Fax) PCP - GeneralFamily Medicine02/05/17Team MemberRelationshipSpecialtyStart DateEnd Date Austen Ontiveros MD [address] [place] [address] (Fax) PCP - Generalmily Medicine02/05/17Team MemberRelationshipSpecialtyStart DateEnd Date Austen Ontiveros MD [address] [place] [address] (Fax) PCP - [facility]11/29/22 Austen Ontiveros MD [address] [place] [address] PCP - Generalmily Medicine12/17/22Team MemberRelationshipSpecialtyStart DateEnd Date Austen Ontiveros MD [address] [place] [address] (Fax) PCP - [facility]11/29/22 Austen Ontiveros MD [address] [place] [address] PCP - GeneralFamily Medicine12/17/22Team MemberRelationshipSpecialtyStart DateEnd Date Austen Ontiveros MD [address] [place] [address] (Fax) PCP - [facility]11/29/22 Austen Ontiveros MD [address] [place] [address] PCP - GeneralFamily Medicine12/17/22Team MemberRelationshipSpecialtyStart DateEnd Date Austen Ontiveros MD [address] [facility] [address] [place] [address] (Fax) PCP - [facility]11/29/22 Austen Ontiveros MD [address] [address] (Fax) PCP - Generalmi Medicine12/17/22Team MemberRelationshipSpecialtyStart DateEnd Date Austen Ontiveros MD [address] [place] [address] (Fax) PCP - GeneralFamily Medicine02/05/17Team MemberRelationshipSpecialtyStart DateEnd Date Austen Ontiveros MD [address] [facility] [place] [address] (Fax) PCP - GeneralFamily Medicine02/05/17Team MemberRelationshipSpecialtyStart DateEnd Date Austen Ontiveros MD [address] [facility] [place] [address] (Fax) PCP - [facility]11/29/22 Austen Ontiveros MD [address] [place] [address] PCP - GeneralFamily Medicine12/17/22Team MemberRelationshipSpecialtyStart DateEnd Date Austen Ontiveros MD [address] [place] [address] (Fax) PCP - [facility]11/29/22 Austen Ontiveros MD [address] [place] [address] (Fax) [facility] - [facility]12/17/22Team MemberRelationshipSpecialtyStart DateEnd Date Austen Ontiveros MD [address] [place] [address] (Fax) PCP - [facility]11/29/22 Austen Ontiveros MD [address] [place] [address] (Fax) PCP - [facility]12/17/22Team MemberRelationshipSpecialtyStart DateEnd Date Austen Ontiveros MD [address] [place] [address] (Fax) PCP - [facility]11/29/22 Austen Ontiveros MD [address] [place] [address] (Fax) PCP - [facility]12/17/22 Team Status: Inactive Member Role Status Dates Walker Edge MD Attending Provider Active Start: July 29, 2024 End: July 29, 2024Team MemberRelationshipSpecialtyStart DateEnd Date Austen Ontiveros MD [address] [place] [address] (Fax) PCP - Generalmily Medicine02/05/17Team MemberRelationshipSpecialtyStart DateEnd Date Austen Ontiveros MD [address] [place] [address] (Fax) PCP - [facility]11/29/22 Austen Ontiveros MD [address] [place] [address] (Fax) PCP - GeneralFamily Medicine12/17/22Team MemberRelationshipSpecialtyStart DateEnd Date Austen Ontiveros MD [address] [place] [address] (Fax) PCP - [facility]11/29/22 Austen Ontiveros MD [address] [place] [address] (Fax) PCP - GeneralFamily Medicine12/17/22Team MemberRelationshipSpecialtyStart DateEnd Date Austen Ontiveros MD [address] [place] [address] (Fax) PCP - GeneralFamily Medicine02/05/17Team MemberRelationshipSpecialtyStart DateEnd Date Austen Ontiveros MD [address] [place] [address] (Fax) PCP - [facility]11/29/22 Austen Ontiveros MD [address] [place] [address] (Fax) PCP - GeneralFamily Medicine12/17/22Team MemberRelationshipSpecialtyStart DateEnd Date Austen Ontiveros MD [address] [place] [address] (Fax) PCP - [facility]11/29/22 Austen Ontiveros MD [address] [place] [address] (Fax) PCP - GeneralFamily Medicine12/17/22Team MemberRelationshipSpecialtyStart DateEnd Date Austen Ontiveros MD [address] [facility] [address] (Fax) PCP - GeneralFamily Medicine02/05/17Team MemberRelationshipSpecialtyStart DateEnd Date Austen Ontiveros MD [address] [place] [address] (Fax) PCP - [facility]11/29/22 Austen Ontiveros MD [address] [place] [address] (Fax) PCP - GeneralFamily Medicine12/17/22Team MemberRelationshipSpecialtyStart DateEnd Date Austen Ontiveros MD [address] [place] [address] (Fax) PCP - [facility]11/29/22 Austen Ontiveros MD [address] [place] [address] (Fax) PCP - GeneralFamily Medicine12/17/22Team MemberRelationshipSpecialtyStart DateEnd Date Austen Ontiveros MD [address] [place] [address] (Fax) PCP - [facility]11/29/22 Austen Ontiveros MD [address] [place] [address] (Fax) PCP - GeneralFamily Medicine02/01/25Team MemberRelationshipSpecialtyStart DateEnd Date Austen Ontiveros MD [address] [place] [address] (Fax) PCP - [facility]11/29/22 Austen Ontiveros MD [address] [place] [address] (Fax) PCP - GeneralFamily Medicine02/01/25Team MemberRelationshipSpecialtyStart DateEnd Date Austen Ontiveros MD [address] [place] [address] (Fax) PCP - GeneralFami Medicine02/05/17Team MemberRelationshipSpecialtyStart DateEnd Date Austen Ontiveros MD [address] [place] [address] (Fax) PCP - [facility]11/29/22 Austen Ontiveros MD [address] [place] [address] (Fax) PCP - GeneralFamily Medicine02/01/25Team MemberRelationshipSpecialtyStart DateEnd Date Austen Ontiveros MD [address] [place] [address] (Fax) PCP - GeneralFamily Medicine02/05/17Team MemberRelationshipSpecialtyStart DateEnd Date Austen Ontiveros MD [address] [place] [address] (Fax) PCP - [facility]11/29/22 Austen Ontiveros MD [address] [address] (Fax) PCP - GeneralFamily Medicine02/01/25Team MemberRelationshipSpecialtyStart DateEnd Austen Ontiveros MD [address] [address] (Fax) PCP - [facility]11/29/22 Austen Ontiveros MD [address] [address] (Fax) PCP - GeneralFamily Medicine Austen Ontiveros MD [address] [address] (Fax) PCP - GeneralFamily Medicine02/01/25 [place] [address] [place] [address] Referring PhysicianCardiology03/31/25 Mary Senior MD [address] [place] [address] Referring PhysicianOphthalmology03/31/25 Usama Stallings MD [address] [place] [address] Referring PhysicianOptometry03/31/25Team MemberRelationshipSpecialtyStart DateEnd Date Austen Ontiveros MD [address] [address] (Fax) PCP - [facility]11/29/22 Austen Ontiveros MD [address] [place] [address] (Fax) PCP - GeneralFamily Medicine02/01/25 [place] [address] [place] [address] Referring PhysicianCardiology03/31/25 Mary Senior MD [address] [place], [place] [address] Referring PhysicianOphthalmology03/31/25 Usama Stallings MD [address] [place] [address] Referring PhysicianOptometry03/31/25Team MemberRelationshipSpecialtyStart DateEnd Date Austen Ontiveros MD [address] [place] [address] (Fax) PCP - [facility]11/29/22 Austen Ontiveros MD [address] [place] [address] (Fax) PCP - GeneralFamily Medicine02/01/25 [place] [address] [place] [address] Referring PhysicianCardiology03/31/25 Mary Senior MD [address] [place], [place] [address] Referring PhysicianOphthalmology03/31/25 Usama Stallings MD [address] [place] [address] Referring PhysicianOptometry03/31/25 (unrecognized sect ion and content) No Status Records FoundNo Status Records FoundNo Status Records FoundNo Status Records FoundNo Status Records FoundNo Status Records FoundNo Status Records FoundNo Status Records Found INFORMATION SOURCE (unrecogn ized section and content) DATE CREATED AUTHOR 06/18/2022 [facility] DATE CREATED AUTHOR AUTHOR'S ORGANIZ ATION 10/14/2022 [facility] DATE CREATED AUTHOR AUTHOR'S ORGANIZ ATION 08/10/2023 [facility] DATE CREATED AUTHOR AUTHOR'S ORGANIZ ATION 07/23/2024 [facility] DATE CREATED AUTHOR AUTHOR'S ORGANIZ ATION 08/09/2024 [facility] DATE CREATED AUTHOR AUTHOR'S ORGANIZ ATION 03/22/2025 [facility] DATE CREATED AUTHOR AUTHOR'S ORGANIZ ATION 05/12/2025 [facility] DATE CREATED AUTHOR AUTHOR'S ORGANIZ ATION 05/18/2025 [facility] Inactive Administered Medications - up to 3 most recent administrations Administered Medications (un recognized section and content) Medication OrderMAR ActionAction DateDoseRateSite fluorescein-benoxinate 0.3-0.4 % 1 Drop (FLURESS) 1 Drop, BOTH EYES, DIRECTED, Starting on Sat09/03/23 at 1430, Until Sat09/04/23 at 0229, Administer for applanation tonometry. In the event of a Fluress shortage, administer 1 drop of Eloise-Fluor into both eyes as directed for applanation tonometry., [facility] CLINIC MED ORDERS Given09/03/2023 2:30 PM EST1 Drop tropicamide 1 % 1 Drop (MYDRIACYL) 1 Drop, BOTH EYES, DIRECTED, Starting on Sat09/03/23 at 1430, Until Sat09/04/23 at 0229, Administer for dilation, OPHT CLINIC MED ORDERS Given09/03/2023 2:30 PM EST1 Drop Goals (unrecognized section and content) Goals [...] BE BASED ON THE PRIMARY CLINICAL RECORDS. [facility] [employer] [facility]. provides no warranty or guarantee of the accuracy or completeness of information in this document.
--- OUTSIDE RECORDS SUMMARY | 2025-05-28 07:52 | XMS_ITS | Encounter Summary ---
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 Role Phone Austen Saavedra MD Unavailable [phone] Austen Saavedra MD Primary Care Provider [phone] Mario Estrada MD, Jay Unavailable [phone] Alfred Estrada MD, Mary Unavailable [phone] Usama Stallings MD Unavailable [phone] Encounter Details DateTypeDepartmentCare Team (Latest Contact Info)Jghfqrwuojq41/17/2025Clinisync Result Encounter [facility] External Department Unsolicited Provider, Generic External Data Social History Tobacco UseTypesPacks/DayYears UsedDateSmoking Tobacco: NeverSmokeless [...] a week 06/23/2024How often do you attend hindu or sikh services?More than 4 times per year06/23/2024ctive Member [...] hard at all04/12/2023HQ-2AnswerDate RecordedPatient Health Questionnaire-2 Score0 05/25/2025[facility] [place] [facility] - Occupational Stress QuestionnaireAnswerDate [...] steady place to sleep or slept in ashelter (including now)?No04/12/2023EducationAnswerDate RecordedWhat is the highest level of school you have completed or the highest degree you have received?High school /09/2023Sex and Gender InformationValueDate RecordedSex Assigned at BirthNot on fileLegal SexMale 09/19/2022 7:10 PM EDTGender IdentityNot on fileSexual OrientationNot on file OccupationIndustryJob Start DateJob End DateRetiredNot on fileNot on fileNot on filedocumented as of this encounter Plan of Treatment Not on file documented as of this encounter Procedures Procedure NamePriorityDate/TimeAssociated DiagnosisComments[facility] - PSA XAVCAIESEPamsrfu63/17/2025 10:28 AM EST documented in this encounter Results * [facility] - PSA SCREENING (05/24/2025 10:28 AM EST)ComponentValueRef RangeTest MethodAnalysis TimePerformed AtPathologist SignaturePROSTATE SPECIFIC ANTIGEN SCRN1.84<=4.00 ng/mLTBHSpecimen (Source)Anatomical Location / Laterality Collection Method / VolumeCollection TimeReceived Time05/24/2025 10:28 AM EST 05/24/2025 10:34 AM EST Narrative [facility] - 05/24/2025 12:12 PM EST Authorizing ProviderResult TypeResult StatusGeneric External Data Provider CLINISYNCFinal ResultPerforming OrganizationAddressCity/State/ZIP CodePhone Number [facility] documented in this encounter Visit Diagnoses Not on filedocumented in this encounter Additional Health Concerns AssessmentNoted TimePHQ-9 Depression Total Score: 9:00 AM EDT documented as of this encounter Care Teams Team MemberRelationshipSpecialtyStart DateEnd Date Austen Saavedra MD [address] [place] [address] PCP - [facility]11/29/22 Austen Saavedra MD [address] [place] [address] PCP - GeneralFamily Medicine02/01/25 [place] [address] [place] [address] Referring PhysicianCardiology03/31/25 Mary Simon MD [address] [place] [address] Referring PhysicianOphthalmology03/31/25 Usama Stallings MD [address] [place] [address] Referring PhysicianOptometry03/31/25documented as of this encounter
--- OUTSIDE RECORDS SUMMARY | 2025-05-28 07:52 | XMS_ITS | Clinical Summary ---
Author Organization [facility] Address [address] [place], [place] [id number] Care Team Providers Care Apple Thinner Name Role Phone Austen Saavedra MD Primary Care Provider Allergies Active AllergyReactionsCriticalityNoted DateCommentsChlorpheniramine-Pseudoephed Fwysysq4007/20/20137220IhurpvYngcwvw98/13/9840RwqokceptgazalbIaiepjs57/21/2023 Other Reaction(s): Urinary Retention Sulfamethoxazole-FfmbmvuisqhtOmbtajo49/13/2014 Medications MedicationSigDispense QuantityRefillsLast FilledStart DateEnd DateStatus montelukast 10 mg tablet Take 10 mg by mouth daily at bedtime.Active MULTIVIT &MINERALS/FERROUS FUM (MULTI VITAMIN ORAL) Take by mouth once daily.Active [place]-3 Fatty Acids-Vitamin E 1,000 mg cap Take 1 capsule by mouth twice daily.Active CALCIUM CARBONATE/VITAMIN D3 (VITAMIN D-3 ORAL) Take 2,000 Units by mouth twice daily.Active tamsulosin HCl (FLOMAX ORAL) Take 0.4 mg by mouth once daily.Active ferrous sulfate (IRON ORAL) Take by mouth.Active cholecalciferol, vitamin D3, (VITAMIN D3 ORAL) Take by mouth.Active bisoprolol (ZEBETA) 10 mg tablet Take 1 tablet by mouth two times a day. 180 tablet 5Active rosuvastatin (CRESTOR) 10 mg tablet Take 1 tablet by mouth once daily. 90 tablet 5Active aspirin, enteric coated (ADULT LOW DOSE ASPIRIN) 81 mg EC tablet Take 1 tablet by mouth every other day. Patient should start on March 26, 2025.5Active apixaban (ELIQUIS) 5 mg tab(s) Take 1 tablet by mouth two times a day. 180 tablet 5Active apixaban (ELIQUIS) 5 mg tab(s) Take 1 tablet by mouth two times a day. Patient should start on March 16, 2025. 180 tablet [id number] Active Problems Patient Care Coordination No te Formatting of this note migh t be different from the original. Indication for Surgery: CAD, , MR, TR, AFib Preop LVEF: Normal RVF: Normal Cards: Mario ECG: Afib Postop LVEF: Normal RVF: Mild PMH/PSH: HTN, HLD, CAD, Chronic AFib Airway Difficulty: Grade I - easy Pacing Wires: No cut 06/30/2021 Chronological List of Surgeries and Major Events (Diagnosis): (Surgeries in bold characters) 06/19/2021: CABG x 3 (PECK-LAD, Vein-PDA, Radial Artery-OM1), AVR (#25 Inspiris), TVr (MC3 #32), MAZE, LAAC (#35) A/P of Major Active Problems: -S/p CABG: ASA/BB/statin. Norvasc for radial graft -s/p AVR/TVr: ASA. Post-op Echo complete - EF 60%, mild RV, no AR, no TR, small pericardial effusion. -h/o chronic AF now s/p MAZE/LAAC. Currently afib - rate intermittently uncontrolled. On Eliquis (took coumadin pre-op) and Metoprolol - BB dose increased with some improvement. Cautious dosing as patient had junctional rhythm in ICU. Started Amiodarone 06/28. 06/29 JEREMY and DCCV unsuccessful. afib n ow rate controlled. -FVO/CXR: Near baseline weight. CXR with small b/l pleural effusions. Continue PO lasix. -FELISA: Scr peaked at 1.61 after surgery, now 1.03 and resolving. Follow trend. Discharge Planning: [facility]. PT recs home. [facility] cards requested; has [facility] EP f/u scheduled. Anticipated Discharge Date: 06/30 Barriers to Discharge: No Barriers to Discharge Care Management Discharge Needs: Needs Prior to Discharge: To Be Determined ProblemNoted DateDiagnosed OdelMcglfpqynwy37/05/5781Ducfzhx67/05/2025Paroxysmal A-fib10/09/2024S/P AVR10/09/2024Permanent atrial ijzbvfothpzm69/01/2023 Assessment & Plan (11/14/2023 9:56 AM EDT): History of A-fib, rate controlled On eliquis Follows with Dr. Martin Iron deficiency anemia, qzkovmrzwdo88/07/2022 Assessment & Plan (11/14/2023 10:06 AM EDT): Stable on iron supplement Hemoglobin (g/dL) Date Value 01/18/2022 12.9 07/05/2021 10.1 Hematocrit (%) Date Value 01/18/2022 41.2 07/05/2021 32.2 WBC (k/uL) Date Value 01/18/2022 4.66 07/05/2021 7.13 Encounter for support and coordination of transition of care06/26/2021 Overview (06/30/2021): Indication for Surgery: CAD, , MR, TR, AFib Preop LVEF: Normal RVF: Normal Eyal: Mario ECG: Afib Postop LVEF: Normal RVF: Mild PMH/PSH: HTN, HLD, CAD, Chronic AFib Airway Difficulty: Grade I - easy Pacing Wires: No cut 06/30/2021 Chronological List of Surgeries and Major Events (Diagnosis): (Surgeries in bold characters) 06/19/2021: CABG x 3 (PECK-LAD, Vein-PDA, Radial Artery-OM1), AVR (#25 Inspiris), TVr (MC3 #32), MAZE, LAAC (#35) A/P of Major Active Problems: -S/p CABG: ASA/BB/statin. Norvasc for radial graft -s/p AVR/TVr: ASA. Post-op Echo complete - EF 60%, mild RV, no AR, no TR, small pericardial effusion. -h/o chronic AF now s/p MAZE/LAAC. Currently afib - rate intermittently uncontrolled. On Eliquis (took coumadin pre-op) and Metoprolol - BB dose increased with some improvement. Cautious dosing as patient had junctional rhythm in ICU. Started Amiodarone 06/28. 06/29 JEREMY and DCCV unsuccessful. afib n ow rate controlled. -FVO/CXR: Near baseline weight. CXR with small b/l pleural effusions. Continue PO lasix. -FELISA: Scr peaked at 1.61 after surgery, now 1.03 and resolving. Follow trend. Discharge Planning: From [place], [place]. PT recs home. [facility] cards requested; has [facility] EP f/u scheduled. Anticipated Discharge Date: 06/30 Barriers to Discharge: No Barriers to Discharge Care Management Discharge Needs: Needs Prior to Discharge: To Be Determined FELISA (acute kidney injury)06/22/2021 Overview (06/29/2021): History: No history of renal dysfunction Assessment: Scr peaked at 1.61 post-op, now recovering. Estimated Creatinine Clearance: 71.4 mL/min(based on SCr of 1.01 mg/dL). Plan: Continue diuresis. Continue to trend SCr, BUN, and UOP. Avoid hypotension and nephrotoxic medications. Postoperative pain06/19/2021 Overview (06/29/2021): History: 06/19/2021: CABG x 3, AVR, TVr, MAZE, LAAC Assessment: Postsurgical pain, well-controlled on current regimen. Plan: PRN tylenol and PRN oxycodone Discharge planning zehvzn8205/29/2021 Overview (06/28/2021): Jovanny Torres is a 76 year old male from [facility] Anticipated Discharge Needs: PT/OT/RT evalulation for anticipated Home Care needs FYI- CXR imaging on 05/29/21 noted the following: Indeterminate subcentimeter right upper lobe lung nodule. The area was not included in the vkzhh-ul-dami on recent prior cardiac CT from 03/23/2021. Suggest follow-up with PA and lateral chest radiographs in 6-12 weeks. ?? Aortic valve xviwqwjt36/22/2021 Overview (06/29/2021): History: Echo with severe and trace AR. Assessment: 06/19/2021: AVR (#25 Inspiris) Plan: Daily ASA Assessment & Plan (11/14/2023 10:05 AM EDT): History: Echo with severe and trace AR. Assessment: 06/19/2021: AVR (#25 Inspiris) Plan: Daily ASA Follows with Dr. Martin Tricuspid pahzcycwpuzkd43/22/2021 Overview (06/29/2021): History: Echo with severe TR Assessment: 06/19/2021: TVr (MC3 #32). Post-op Echo completed Plan: Daily ASA Coronary artery disease involving coronary bypass graft of enterprise heart without angina akcxiqsu92/22/2021 Overview (06/29/2021): History: Cath (03/2021) with 70% ostial LAD lesion, 50-60% mid-LAD lesion, 80-90% LCx lesion, and 60-70% mid RCA lesion Assessment: 06/19/2021: CABG x 3 (PECK-LAD, Vein-PDA, Radial Artery-OM1) Plan: CAD Core Measures: Aspirin: Yes Beta blockers: Yes Statins: Yes Norvasc for radial artery harvest Assessment & Plan (11/14/2023 10:04 AM EDT): History of 06/19/2021: CABG x 3 (PECK-LAD, Vein-PDA, Radial Artery-OM1) Follows with Dr. Martin History of dtwmvzgawaczm42/22/2021 Assessment & Plan (11/14/2023 9:56 AM EDT): Continues to be in rate controlled A-fib Dwurrrqrpuzsby10/22/2021 Assessment & Plan (11/14/2023 10:04 AM EDT): Stable on medication SRIVASTAVA (dyspnea on exertion)03/30/2021ower urinary tract symptoms due to benign prostatic ruyxhxhxmnq77/06/2020HTN (hypertension)11/23/2013 Overview (06/29/2021): History: On Metoprolol ER 75 mg daily& Losartan 50 mg daily at home Assessment: SBP ~ 100. Plan: Continue Norvasc for radial graft - reduced to 2.5mg. Continue BB and PO lasix. Assessment & Plan (11/14/2023 10:05 AM EDT): Stable on medication Today To take medication morning of surgery Chronic a-fib05/18/2013 Overview (06/29/2021): History: S/p ablation in 2006 and 2013. Home med: warfarin and metoprolol Assessment: 06/19/2021: MAZE and LAAC. Arrived to ICU in SR, then in and out of rate controlled Afib vs Junctional rhythm. Currently in afib with intermittent uncontrolled rate. 06/29 unsuccessful DCCV Plan: Continue Eliquis and BB. Increase BB as able. Pulmonary gacomqcoemfz83/11/2013 Assessment & Plan (11/14/2023 10:06 AM EDT): Stable. Follows cardiology, Dr. Martin, Compliant on medications. Appears euvolemic, denies new or worsening cardiac symptoms. Ejection Fraction - Result: 56 % Date: 01/18/2022 Time: 07:57:34 Resolved Problems ProblemNoted DateDiagnosed DateResolved DateStress jpmzvcjzawqqm85/14/2021 06/26/2021 Overview (06/24/2021): History: No prior Hx of DM. Postop. Assessment: Perioperative insulin resistance and exacerbation of hyperglycemia. Plan: SSI for glycemic control. Kyoyzsefaumw04/14/202112/ Overview (06/24/2021): History: Postop Assessment: Increased vascular markings improving on CXR. Net negative 1.2L in 24 hrs Plan: Continue diuresis; Monitor I&O. Wapcekxvjok14/13/202112/ Overview (06/27/2021): History: Postop. Grade I airway. Assessment: Bibasilar atelectasis on CXR. Adequate oxygenation on room air. Plan: Encourage ambulation, C&DB, PEP, pain control. Postoperative supudfifian69/13/202112/ Overview (06/20/2021): History: 06/19/2021: CABG x 3, AVR, TVr, MAZE, LAAC Assessment: Requiring norepinephrine Plan: Titrate to MAPs 65-75 Cardiac insufficiency following cardiac ipmwdxn34/ Overview (06/24/2021): History: 06/19/2021: CABG x 3, AVR, TVr, MAZE, LAAC. Mild RV dysfunction postop requiring epinephrine, weaned off. Required AV pacing at 80 for optimal hemodynamics (capture threshold 3 mA (atrial) and 2.5 mA (ventricular)) Assessment: Prolonged period of need for AV pacing. Noted to be in AF in under pacer 06/23; remainsin AF. Adequate hemodynamics in enterprise rhythm. Echo w/ RV mildly dilated, RV mild dysfunction. Plan: Continue diuresis. Preop osdkaxu90/ Overview (06/16/2021): [facility] PRE-OP CHECKLIST Surgeon: [...] US: N/A Cath: Yes - reviewed: Yes (DIAMOND) EKG: Completed Is patient on Amiodarone? No [...] TIME of SERVICE: 1:21 PM CHECKED BY: Encounters DateTypeDepartmentCare WgblTmqynbgbbhw50/10/2025 8:30 AM ESTOffice Visit Cardiology [address] [place] [phone] Amy Subramanian APRN.CNP Permanent atrial fibrillation (HCC) (Primary Dx); Gfxqvcnwv27/31/5134Wqvhnw82/15/2025 2:00 PM EDTOffice Visit Cardiology [address] [place] [phone] Pacemaker reprogramming/check03/22/2025Telephone Cardiology [address] [place] [phone] Jay Martin V, MD Patient Uvrnaije89/05/2025 9:00 AM EDT - 03/12/2025 11:01 AM EDTSurgery [facility] [address] [place] [address] Dara Sullivan MD (NEW IMPLANT SINGLE CHAMBER PPM) INSERTION OF A NEW PERMANENT PACEMAKER W/ INSERTION OF NEW TRANSVENOUS ELECTRODE UVFZMLTJM80/05/2025 7:00 AM EDT - 03/12/2025 11:59 PM EDTHospital Encounter Cardiovascular Testing [address] [facility] [place] [address] Coronary artery disease involving coronary bypass graft of enterprise heart without angina pectoris [I25.810] Discharge Disposition: Home03/12/2025 6:16 AM EDT - 03/12/2025 3:15 PM EDT Hospital Encounter [facility] [address] [place] [address] Dara Sullivan MD Bradycardia [R00.1] Discharge Disposition: Home03/12/20255967Naayfx12/02/2025 Patient Msg Cardiology [address] [place] [phone] Provider, [facility] PPM CESLOOW8503/05/2025Telephone Cardiology [address] [place] [address] Dara Sullivan MD 03/04/2025 4:00 PM EDTOffice Visit Cardiology [address] [place] [address] Lauren Mckeon, SERVICE NOW DEVELOPER.POULTRY HUSBANDRY TEACHER Permanent atrial fibrillation (HCC) (Primary Dx); Tachy-parag syndrome (HCC); Essential hypertension; Current use of licensed professional counselor anticoagulation; Syncope, unspecified syncope type02/25/20250831Rtwaad95/21/2025 Patient [facility] [address] [place] [address] Elina Ribeiro RPh At your next appointment, choose [facility] Last 3 Months Immunizations ImmunizationAdministration DatesNext Duediphtheria tetanus pertussis (DTaP) vaccine, unspecified /03/2011influenza (HD-IIV3) vaccine, age 65+ yr, high dose, trivalent, PF (FLUZONE HIGH-DOSE)05/09/2018influenza vaccine, unspecified qojsnlzdpju79/14/2018 Family History Medical HistoryRelationCommentsCancerFatherStrokeMotherNo Ocular DiseaseOther StrokePaternal GrandmotherCoronary Artery DiseaseSister 2GISister 3Hypertension Sister 4RelationStatusCommentsFatherDeceasedcancerMotherDeceasedstrokeOther Paternal GrandmotherSister 1AliveSister 2Sister 3Sister 4 Social History Tobacco UseTypesPacks/DayYears UsedDateSmoking Tobacco: NeverSmokeless Tobacco: Never Tobacco Cessation:Counseling Given: Not Answered Alcohol UseStandard Drinks/WeekCommentsYes0 (1 standard drink = 0.6 oz pure alcohol)rare beer after mowing lawn in [facility] Deprivation IndexAnswerDate RecordedNational Score (1-100), lower number is lower dmye5806State Score (1-10), lower number is lower ngcz347Data from: https://www.neighborhoodatlas.medicine.[facility].edu/. Last address used for zztinizxy[address] [place] [address] Sex and Gender InformationValueDate RecordedSex Assigned at BduxdIecu00/09/2022 3:06 PM EDTLegal QovOiyx95/06/2013 10:37 AM ESTGender TxeqipecZgsd43/09/2022 3:07 PM EDTSexual OrientationStraight 01/13/2022 3:06 PM EDTOccupationIndustryJob Start DateJob End DateRetiredNot on fileNot on fileNot on file Last Filed Vital Signs Vital SignReadingTime TakenCommentsBlood Zsoccjkh620/8805/17/2025 7:55 AM EST Yjwfp496005/17/2025 7:55 AM ICQLqjtvwwlqva23.5 ??C (97.7 ??F)03/12/2025 6:59 AM EDTRespiratory Pheb598303/12/2025 3:00 PM EDTOxygen Yauttigrkc83%05/17/2025 7:55 AM ESTInhaled Oxygen Concentration--Pcwuyw66.2 kg (172 lb 6.4 oz)05/17/2025 7:55 AM KGYAuhqlk637.4 cm (6' 1 )03/12/2025 6:59 AM EDTBody Mass Index22.75 03/12/2025 6:59 AM EDT Plan of Treatment DateTypeDepartmentCare Team (Latest Contact Info)Yifvupxtsqz07/04/2025 10:40 AM ESTOffice Visit Cardiology [address] [place] [address] [place] [address] [place] [address] Return in about 8 months (around 06/10/2025).10/28/2025 8:00 AM EDTOffice Visit Cardiology [address] [place] [address] ewzozs5910/28/2025 8:40 AM EDTOffice Visit Cardiology [address] [place] [phone] [place] [address] [place] [address] 6 month follow upHealth MaintenanceDue DateLast DoneCommentsAnnual PCP Team Chronic Disease Visit1964Anxiety Bdqldsjgs21/30/1964Depression Screening 1964Medicare Annual Wellness Visit03/08/2011dvance Directive Discussion 07/08/2024LDL Fejsgoklefv03/02/511254/08/2023, 08/09/2023, 2Covid-19 Vaccine ( season)/, 05/05/2021, 09/09/2020, Additional history existsInfluenza Vaccine (#1)504/04/2025, 05/16/2023, 05/09/2023, Additional history existsDiabetes Ckenzviko05/11/2024, 01/18/2022, 07/05/2021, Additional history existsDTaP,Tdap,Td Vaccine (4 - Td or Tdap)/06/2022, 07/10/2010, 07/08/2010Shingrix VaccineCompleted 12/24/2017, 12/14/2017, 10/25/2017, Additional history existsPneumococcal Vaccine: 50+Bohmvcgsi46/14/2018, 10/10/2015, 09/27/2014, Additional history existsRSV BkjyndoKzyrxbfqh90/09/2023 Goals GoalPatient Goal TypeAssociated ProblemsRecent ProgressPatient-Stated?Author Blood Pressure < 130/80 Blood Rchvbqwq919/88(05/17/2025 7:55 AM EST)Daniel Cuellar MD Medical Devices ImplantedTypeAreaManufacturerDevice IdentifierShelf Expiration DateModel / Serial / LotClip Atriclip Gillinov-Minerva 180d Long 45mm 25mm Internal Head - [id number] Implanted:Qty: 1 on 06/19/2021 at [facility] MA[facility]ClipN/A: Heart SPZGWDRL62/01/[id number] / / [id number] Thk1.65mm Ptfe 4x.5in Cardiovascular Sterile - [id number] Implanted:Qty: 1 on 06/19/2021 at [facility] MAINImplantN/A: HeartBARD PERIPHERAL XRGPZWVR42/28/[id number] / / [id number] Max Mc3 32mm Titanium Silicone Rubber Polyester Annuloplasty 1 - [id number] Implanted:Qty: 1 on 06/19/2021 at [facility] MAINImplantN/A: Heart [id number] / [id number] / Cc60wf.230 Clareon Uva - [id number] Implanted:Qty: 1 on 11/27/2023 by Mary Simon V, MD at [facility] Intraocular LensRight: EyeALCON LABS WDTULHEJ58/30/4552VP90PP.230 / [id number] / Description:-[id number] [id number] Selectsecure [id number] Implanted:03/12/2025 (Quantity not on file)LeadMEDTRONIC EBO0083 SELECTSECURE / [id number] / [id number] Shanon Xt Sr Mri [id number] Implanted:03/12/2025 (Quantity not on file)PacemakerMEDTRONIC INCAZURE XT SR MRI / [id number] / Valve Max Inspiris Resilia 25mm Pericardial Aortic Bioprosthesis - [id number] Implanted:Qty: 1 on 06/19/2021 by Eveline Goncalves MD at [facility] ValveEDWARDS LIFESCIENCES [id number] / [id number] / Description:avrLeft IolEye - Lens Procedures Procedure NamePriorityDate/TimeAssociated DiagnosisCommentsECG COMPLETERoutine 05/17/2025 8:01 AM EST Permanent atrial fibrillation (HCC) ECG WVGAIXYV67/10/2025 8:01 AM ESTCARDIAC IMPLANTABLE DEVICE CHECKRoutine 03/22/2025 2:12 PM EDT Pacemaker reprogramming/check XR CHEST 2V FRONTAL/YDIMesklub25/05/2025 12:35 PM EDT ECG RMWZDQBXEDFD20/05/2025 11:27 AM EDT EPS: WZIXEANDI05/05/2025 9:35 AM EDT INS NEW/RPLC PRM PACEMAKER W/TRANSV ELTRD VENTR03/12/2025 8:56 AM EDT Bradycardia LVEF FTMKNoheunf47/05/2025 7:18 AM EDT LPKZMpwibnt57/05/2025 7:18 AM EDT Coronary artery disease involving coronary bypass graft of enterprise heart without angina pectoris S/P AVR Pulmonary hypertension (HCC) COMPLETE BLOOD NINEQLIIZ68/05/2025 7:06 AM EDT BASIC METABOLIC YNAGWPRYC60/05/2025 7:06 AM EDT HNUEijxjrm19/05/2025 6:48 AM EDT ECG LNGLFLDE23/28/2025 3:37 PM EDTECG UKTVQWJGTkssvgq00/28/2025 3:37 PM EDT Permanent atrial fibrillation (HCC) LIPID-LIPO PANEL 5Cimfdkq92/02/2024 10:20 AM EST Coronary artery disease involving enterprise coronary artery of enterprise heart with angina pectoris (HCC) Pure hypercholesterolemia from Last 3 Months or Most Recently Relevant to Health Maintenance Results * ECG COMPLETE (05/17/2025 8:01 AM EST)ComponentValueRef RangeTest Method Analysis TimePerformed AtPathologist SignatureVentricular Vwnv48JWSOTTYK AND VASCULAR INSTITUTEQRS Pakynxyf332wqBHKVG AND VASCULAR INSTITUTEQT Iwtovsaz960 msHEART AND VASCULAR INSTITUTEQTC Calculation (Bazett)500msHEART AND VASCULAR INSTITUTECalculated R Xvkm13qwgrknrUUAWX AND VASCULAR INSTITUTECalculated T Hros51zjilczfCKHCD AND VASCULAR INSTITUTESpecimen (Source)Anatomical Location / LateralityCollection Method / VolumeCollection TimeReceived Time05/17/2025 8:01 AM EST Impressions [facility] - 05/18/2025 7:18 AM EST ATRIAL FIBRILLATION COMPLETE RIGHT BUNDLE BRANCH BLOCK ABNORMAL ECG Confirmed by TARIQ CROOKS M.D. ([id number]) on 05/18/2025 7:18:[address] [facility] - 05/18/2025 7:18 AM EST NAME : JOVANNY TORRES PID : [id number] : 1945 Gender : Male Race : ORD : [id number] Procedure Date : May 17 2025 08:01:03 [...] : , Authorizing ProviderResult TypeResult StatusMarisol Moris SERVICE NOW DEVELOPER.CNPEKGFinal ResultPerforming OrganizationAddressCity/State/ZIP CodePhone Number [facility] [address] [place] [address] * CARDIAC IMPLANTABLE DEVICE CHECK (03/22/2025 2:12 PM EDT)ComponentValueRef RangeTest MethodAnalysis TimePerformed AtPathologist SignatureDate Time Interrogation [id number] CARDIACImplantable Pulse Generator ManufacturerMedtronicMUR CARDIACImplantable Pulse Generator TypePacemaWhite [facility] CARDIACImplantable Pulse Generator ModelAzure XT MRIMURJ CARDIAC Implantable Pulse Generator Serial [id number] CARDIACImplantable Pulse Generator Implant [id number] CARDIACBattery StatusSEE PDFMURJ CARDIACBrady Statistic RV Percent Paced43.00MURJ CARDIACLead Channel Sensing Intrinsic Ffckhbdqg09.900MURJ CARDIACLead Channel Setting Sensing Sensitivity 0.90MURJ CARDIACLead Channel Impedance Aockv800TOAD CARDIACLead Channel Pacing Threshold Amplitude0.750MURJ CARDIACLead Channel Pacing Threshold Pulse Width 0.4MURJ CARDIACLead Channel Measurements Date and Pxyk3573-74-26RCPA CARDIAC Lead Channel Setting Pacing Amplitude3.500MURJ CARDIACLead Channel Setting Pacing Pulse Width0.4MURJ CARDIACBrady Setting Mode (NBG Code)VVIRMURJ CARDIAC Parag Setting Lower Rate Qjzuz01IPTR CARDIACBrady Setting Maximum Sensor Rate 120MURJ CARDIACZone Setting Type CategoryVTMURJ CARDIACZone Setting Status MonitorMURJ CARDIACZone ND4NHNT CARDIACImplantable Lead ManufacturerMedtronic MURJ CARDIACImplantable Lead Ceydb7838 SelectSecureMURJ CARDIACImplantable Lead LocationUnknownMURJ CARDIACImplantable Lead Connection StatusConnected MURJ CARDIACImplantable Lead Serial [id number] CARDIACImplantable Lead Implant [id number] CARDIACSpecimen (Source)Anatomical Location / LateralityCollection Method / VolumeCollection TimeReceived Time03/22/2025 2:12 PM EDT Narrative MURJ CARDIAC - 03/23/2025 5:44 PM EDT Normal In-Office: No Events * Normal Device Function * Alerts or events: None * Battery: 14.8 years * Sensing, impedance and thresholds reviewed and tested * Presenting Rhythm: MANAGER MED SURG-VS, irreg * Underlying Rhythm: Atrial fibrillation * Heart Rate Histograms reviewed * Pacing and Detection Parameters were evaluated NOTE TO PROVIDERS: Cardiac Implanted Devices Flowsheets contain detailed Programming and Evaluation data. Full Docket/PDF found below under Scanned Documents . Procedure Note Dara Sullivan MD - 03/23/2025 Normal In-Office: No Events * Normal Device Function * Alerts or events: None * Battery: 14.8 years * Sensing, impedance and thresholds reviewed and tested * Presenting Rhythm: MANAGER MED SURG-VS, irreg * Underlying Rhythm: Atrial fibrillation * Heart Rate Histograms reviewed * Pacing and Detection Parameters were evaluated NOTE TO PROVIDERS: Cardiac Implanted Devices Flowsheets contain detailed Programming and Evaluation data. Full Docket/PDF found below under Scanned Documents . Authorizing ProviderResult TypeResult StatusMurj ProviderCARDIOLOGYFinal Result Performing OrganizationAddressCity/State/ZIP CodePhone Number MURJ CARDIAC * XR CHEST 2V FRONTAL/LAT (03/12/2025 12:35 PM EDT)Anatomical RegionLaterality ModalityChestRadiographic ImagingSpecimen (Source)Anatomical Location / LateralityCollection Method / VolumeCollection TimeReceived Time03/12/2025 12:35 PM EDT Impressions 03/12/2025 1:13 PM EDT IMPRESSION: No pneumothorax. Mild cardiomegaly without evidence of congestive heart failure. Sales Planning Coordinator: ETHAN ?? Transcribe Date/Time: Mar ??2024 ??1:09P Dictated by : BETY ISAACS MD This examination was interpreted and the report reviewed and electronically signed by: BETY ISAACS MD on Mar ??2024 ??1:11PM ??EST Narrative 03/12/2025 1:13 PM EDT * * *Final Report* * * DATE OF EXAM: Mar ??2024 12:35PM ?? FVX ?? 5291 ??- ??XR CHEST 2V FRONTAL/LAT ??/ PROCEDURE REASON: Other ? * * * * Physician Interpretation * * * * EXAMINATION: CHEST RADIOGRAPH (2 VIEW FRONTAL & LATERAL) CLINICAL HISTORY: Other, post op CXR after SC-PPM, eval PTX and lead position MQ: ??XC2_6 EXAM DATE/TIME: ??03/12/2025 12:35 PM COMPARISON: ??07/05/2021. RESULT: Lines, tubes, and devices: ??Multiple median sternotomy wires, heart valves and atrial appendage clip. The left chest wall cardiac pacemaker lead terminates in the right ventricle. Lungs and pleura: ??No consolidation. No lung mass. No pleural effusion. No pneumothorax. Cardiomediastinal silhouette: ??Mild cardiomegaly. Bones and soft tissues: ??Degenerative changes are present within the thoracic spine. Procedure Note Provider, [facility] [place] - 03/12/2025 * * *Final Report* * * DATE OF EXAM: Mar 12 2025 12:35PM FVX 5291 - XR CHEST 2V FRONTAL/LAT / PROCEDURE REASON: Other * * * * Physician Interpretation * * * * EXAMINATION: CHEST RADIOGRAPH (2 VIEW FRONTAL & LATERAL) CLINICAL HISTORY: Other, post op CXR [...] changes are present within the thoracic spine. IMPRESSION IMPRESSION: No pneumothorax. Mild cardiomegaly without evidence of congestive heart failure. Sales Planning Coordinator: ETHAN Transcribe Date/Time: Mar 12 2025 1:09P Dictated by : BETY ISAACS MD This examination was interpreted and the report reviewed and electronically signed by: BETY ISAACS MD on Mar 12 2025 1:11PM EST Authorizing ProviderResult TypeResult StatusMatthew Long MDRAD-PAMAFinal Result * ECG COMPLETE (03/12/2025 11:27 AM EDT)ComponentValueRef RangeTest Method Analysis TimePerformed AtPathologist SignatureVentricular Ympm73PFFJXBYYADG CARDIOLOGYAtrial Ywfu970RGLXAXEFEQK CARDIOLOGYP-R Ffvxwdil91sdTNMTHBXH CARDIOLOGYQRS Fapqilkm258utYAKYMBIZ CARDIOLOGYQT Obdxbuxv799swWUQVGBAE CARDIOLOGYQTC Calculation (Bazett)511msFAIRVIEW CARDIOLOGYCalculated P Axis0 degreesFAIRVIEW CARDIOLOGYCalculated R Doii97jxaietlCONTRHVR CARDIOLOGY Calculated T Purcell-2degreesFAIRVIEW CARDIOLOGYSpecimen (Source)Anatomical Location / LateralityCollection Method / VolumeCollection TimeReceived Time 03/12/2025 11:27 AM EDT Impressions [facility] - 03/21/2025 10:36 AM EDT Atrial flutter with Ventricular-paced complexes Right bundle branch block Abnormal ECG Confirmed by MAX ZAZUETA DO ([id number]) on 03/21/2025 10:36:15 AM Narrative [facility] - 03/21/2025 10:36 AM EDT NAME : JOVANNY TORRES PID : [id number] : 1945 Gender : Male Race : ORD : [id number] Procedure Date : Mar 12 2025 11:27:27 Edit Date : Mar 21 2025 10:36:17 Diagnosis: Atrial flutter with Ventricular-paced complexes Right bundle branch block Abnormal ECG Confirmed by MAX ZAZUETA DO ([id number]) on 03/21/2025 10:36:15 AM Test Reason : Post-OP Location : 400 : FVEKG ??16 Overread By : MAX ZAZUETA DO Edited By : MAX ZAZUETA DO Referred By : JAY MARTIN Acquired by : NM, Authorizing ProviderResult TypeResult StatusMatthew Henry TINEOEKGFinal Result Performing OrganizationAddressCity/State/ZIP CodePhone Number [facility] [address] [place] [address] * EPS: PACEMAKER (03/12/2025 9:35 AM EDT)Specimen (Source)Anatomical Location / LateralityCollection Method / VolumeCollection TimeReceived Time03/12/2025 9:[address] [facility] - 03/15/2025 7:45 AM EDT Final Report [facility] Cardiac Electrophysiology Laboratory [address] [place] [address] The entire procedure was performed by the Staff Physician without the assistance of a Fellow. This report has been electronically signed on 03/15/2025 07:45 by DARA SULLIVAN MD Type of Procedure: Pacemaker Device: - Implantation of a MEDTRONIC SHANON XT SR MRI SURESCAN [id number] pulse generator programmed as VVIR. Leads: - Implantation of a MEDTRONIC 3830-69 left bundle office lead. Details: - TYRX absorbable envelope/pouch was used. Room: EP Lab 1 Date of service: 03/12/2025 Patient entered lab: 09:12 AM Incision Time: 09:35 AM End Time: 10:47 AM A unit dose applicator was used. Alcohol based prep was not allowed to soak into patient's hair or linens. Towels were used to absorb excess and were removed prior to draping. The prep solution was completely dry prior to draping. Antibiotic vancomycin 1250 mg IV given at 09:25 AM by CHRISTINA GRIFFIN RN Antibiotic vancomycin 1250 mg IV completed at 10:55 AM by POST OP RN Indications for procedure: Persistent non-reversible symptomatic bradycardia due to sinus node dysfunction Documented non-reversible symptomatic bradycardia due to sinus node dysfunction. Preoperative diagnosis: Persistent non-reversible symptomatic bradycardia due to sinus node dysfunction Postoperative diagnosis: Persistent non-reversible symptomatic bradycardia due to sinus node dysfunction Patient History: IMPRESSION/PLAN: 1. Permanetn atrial fibrillation/flutter MAP9YH3-QFFp: (Age, HTN, PVD)--Eliquis 5 mg BID ECG today demonstrates atypical atrial flutter VR 71 Reviewed zio monitor and episodes with Dr. Meadows- symptoms are highly suggestive of significant bradycardia resulting in LOC. We are unable to reduce his beta beth dose given atrial fibrillation/flutter. Average pulse rate is 81. Thus, recommended permanent pacing support. I reviewed this with the patient and his - both are in agreement- We will obtain updated echocardiogram and I will discuss with invasive EP providers regarding device insertion. We will then schedule accordingly. Procedure Note: The patient arrived to the electrophysiology lab [...] A 7F sheath was inserted and the Roll20tronic C315 long sheath was advanced over a [...] to the septum was confirmed in steep TANZANIAN views. The lead was fixed in this [...] sleeve was tied down to muscle using 2-0 silk. The pocket was then copiously irrigated with [...] continuous telemetry -- discharge today if interrogation/CXR satisfactory Summary Findings: 1. The incision was closed with subcuticular sutures. There were no intraprocedural complications or adverse events. Procedure Profile: ? Fluoroscopic Time: 5.8 minutes ? Estimated Patient Radiation Exposure: 0.02 Gy (20 mGy) ? Contrast used: ?Omnipaque 100 mL (350 mgI/mL): 10 mL injected IV; 0 mL discarded. ? Local anesthetic given: ?Lidocaine 2%, left subclavian. ? Moderate sedation was provided by EP Lab Nursing Staff, with continuous ECG, pulse oximetry and cardiopulmonary monitoring. The EP Nurse was overseen by the performing physician(s), for an intra service time of 1 hr 12 min. ? Sedative Drugs: ?Fentanyl 50 mcg IV ?Versed 1 mg IV ? Specimens removed: None ? Estimated blood loss: 5 cc Patient Profile: Age: 79 Gender: Male Race: White NYHA Class: II LV function: ECHO: Ejection fraction 0.55 Patient: [id number] JOVANNY TORRES Lab Staff: DARA SULLIVAN MD Lab Fellow: Referring Physician: Austen Saavedra MD; Jero Wiggins MD Authorizing ProviderResult TypeResult StatusCcf ProviderSCHEDULED PROCEDURES Edited Result - FinalPerforming OrganizationAddressCity/State/ZIP CodePhone Number [facility] [address] [place] [address] * LVEF ECHO (03/12/2025 7:18 AM EDT)ComponentValueRef RangeTest MethodAnalysis TimePerformed AtPathologist SignatureLV Ejection Magysbbb97%[facility]YComment: (2D biplane) EF > 52 An LV Ejection Fraction of > 50% is normal Specimen (Source)Anatomical Location / LateralityCollection Method / Volume Collection TimeReceived Time03/12/2025 7:18 AM EDT Narrative Authorizing ProviderResult TypeResult StatusAlbert Mario Estrada MDLVEF RESULTSFinal ResultPerforming OrganizationAddressCity/State/ZIP CodePhone Number [facility] [address] [place] [id number] * ECHO (03/12/2025 7:18 AM EDT)Specimen (Source)Anatomical Location / Laterality Collection Method / VolumeCollection TimeReceived Time03/12/2025 7:18 AM EDT Impressions [facility] - 03/12/2025 9:11 AM EDT CONCLUSIONS: - Exam indication: Routine surveillance of [...] right atrial cavity is moderately dilated. - Max MC3 Tricuspid Ring (size #32). There is [...] * * * Final * * * Narrative [facility] - 03/12/2025 9:11 AM EDT Echocardiography Report: Transthoracic Echo [facility] Date of service: 03/12/2025 7:18:26 AM Ordering physician: JAY MARTIN Exam indication: Routine surveillance of mild valvular regurgitation (>3yrs) Technologist: Rachna Goncalves [facility] and staff Interpreting physician: Tariq Crooks MD PATIENT: Name: MR. JOVANNY TORRES : 1945 Age: 79 years Gender: M History of hypertension, dyslipidemia, coronary artery disease, arrhythmia and valvular heart disease. 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 Height: 185.40 cm BSA: 2.02 m?? Weight: 79.50 kg ??BMI: 23.1 kg/m?? Heart rate ? 70 bpm Blood pressure 145/69 mmHg Color Doppler was utilized to interrogate the cardiac valves assessed and spectral Doppler was utilized to determine the flow velocities and pressure gradients reported in this exam. MEASUREMENTS: ? Value ? Indexed ?Normal Max aortic dimension 3.6 cm Ao < 3.8 Left atrial volume 79 ml (Hudson's) 39 ml/m Deisy <= 34 LV ID (diastole) ? 4.1 cm (2D) ? 2.03 cm/m?? LV ID (systole) ?2.9 cm (2D) ? 1.43 cm/m?? IVS, leaflet tips ?1.4 cm (2D) Posterior wall thickness 1.4 cm (2D) Left ventricular mass ?217 g (2D) ?107 g/m?? LV stroke volume ? 65 ml (2D biplane) LV end diastolic volume 113 ml (2D biplane) 56.1 ml/m 34<=EDVi<75 LV end systolic volume ?? 49 ml (2D biplane) ??24.0 ml/m?? Ejection Fraction 57 % (2D biplane) EF [...] thickening. Regurgitant orifice area (PISA) is 0.12 cm??. TRICUSPID VALVE Max MC3 Tricuspid Ring size #32. There is [...] surgery. PERICARDIUM There is no pericardial effusion. Authorizing ProviderResult TypeResult StatusAlbert Mario Estrada MDECHOFinal Result Performing OrganizationAddressCity/State/ZIP CodePhone Number [facility] [address] [place] [address] * (ABNORMAL) COMPLETE BLOOD COUNT (03/12/2025 7:06 AM EDT)ComponentValueRef RangeTest MethodAnalysis TimePerformed AtPathologist SignatureWBC4.583.70 - 11.00 k/uL03/12/2025 7:58 AM EDNEW [facility] LABORATORYRBC4.554.20 - 6.00 m/uL 03/12/2025 7:58 AM [facility] ZQULMNGCTWNrmaiewgot97.513.0 - 17.0 g/dL 03/12/2025 7:58 AM [facility] NKGHVUKSZEFbryslzaoq78.439.0 - 51.0 %03/12/2025 7:58 AM EDNEW [facility] SJGNDDILDLTIW98.080.0 - 100.0 fL03/12/2025 7:58 AM EDT [facility] KKMJOCPCHWRIN01.726.0 - 34.0 pg03/12/2025 7:58 AM EDNEW [facility] EQKCOADGKRCDMR83.630.5 - 36.0 g/dL03/12/2025 7:58 AM EDNEW [facility] RDW-CV13.711.5 - 15.0 %03/12/2025 7:58 AM EDTFSPAULDING HOSPITAL CAM[facility]ID[facility] LABORATORYPlatelet Count 125(L)150 - 400 k/uL03/12/2025 7:58 AM EDTFAIROHIOHEALTH BERGER [facility]PITAL LABORATORYComment:No clot detected.MPV10.89.0 - 12.7 fL03/12/2025 7:58 AM EDTFAIRVIEW LABORATORYAbsolute nRBC<0.01<0.01 k/uL03/12/2025 7:58 AM EDTFAIRVIEW LABORATORYSpecimen (Source) Anatomical Location / LateralityCollection Method / VolumeCollection Time Received TimeBloodBLOOD SPECIMEN / UnknownVenipuncture / Sidhped4403/12/2025 7:06 AM EDT03/12/2025 7:42 AM EDT Narrative Authorizing ProviderResult TypeResult StatusJennHudson County Meadowview Hospital SERVICE NOW DEVELOPER.CNPLABORATORY Final ResultPerforming OrganizationAddressCity/State/ZIP CodePhone Number [facility] [address] * (ABNORMAL) BASIC METABOLIC PANEL (03/12/2025 7:06 AM EDT)ComponentValueRef RangeTest MethodAnalysis TimePerformed AtPathologist WacwxdcolPfigqfl4927 - 99 mg/dL03/12/2025 8:36 AM EDTFAIRVIEW LABORATORYComment: The [place] Diabetes Association (ADA) provides guidance for cutoff values for fasting glucose andrandom glucose. The ADA defines fasting as no [...] Standards of Medical Care in Diabetes 2016, [place] Diabetes Association. Diabetes Care. 2016.39(Suppl 1). BUN29(H)9 - 24 mg/dL03/12/2025 8:36 AM EDTFAIRVIEW LABORATORYCreatinine0.940.73 - 1.22 mg/dL03/12/2025 8:36 AM EDTFAIRVIEW HBBLEGZATJKytrvw138448 - 144 mmol/L 03/12/2025 8:36 AM EDTFAIRVIEW LABORATORYPotassium4.63.7 - 5.1 mmol/L03/12/2025 8:36 AM EDTFAIRVIEW RCJWRQZBYKRckcabva55734 - 107 mmol/L03/12/2025 8:36 AM EDT [facility] KEZWGKEHXTRK90885 - 30 mmol/L03/12/2025 8:36 AM EDTFSPAULDING HOSPITAL [facility] LABORATORY Anion Xnx746 - 15 mmol/L03/12/2025 8:36 AM EDNEW ENGL[facility] LABORATORYCalcium, Total 9.68.5 - 10.2 mg/dL03/12/2025 8:36 AM EDNEW ENGL[facility] LABORATORYEstimated Glomerular Filtration Rate83>=60 mL/min/1.73m 03/12/2025 8:36 AM [facility] LABORATORYComment:Estimated Glomerular Filtration Rate (eGFR) is calculated using the 2020 CKD-EPI creatinine equation. This equation utilizes serum creatinine, sex, and age as parameters. The creatinine assay has traceable calibration to isotope dilution-mass spectrometry. Refer to KDIGO guidelines for clinical interpretation. In patients with unstable renal function, e.g. those with acute kidney injury, the eGFRmay not accurately reflect actual GFR.Specimen (Source)Anatomical Location / LateralityCollection Method / VolumeCollection TimeReceived TimeBloodBLOOD SPECIMEN / Unknown Venipuncture / Pmelgai0203/12/2025 7:06 AM EDT03/12/2025 7:53 AM EDT Narrative Authorizing ProviderResult TypeResult StatusJennsandra Stevenson APRN.CNPLABORATORY Final ResultPerforming OrganizationAddressCity/State/ZIP CodePhone Number [facility] [address] [place] [address], * EKG (03/12/2025 6:48 AM EDT)ComponentValueRef RangeTest MethodAnalysis Time Performed AtPathologist SignatureVentricular Ywaa47CCKRRBXJNAW CARDIOLOGY Atrial Qrdn600WRKNWWQRTQS CARDIOLOGYP-R Ddwmzakg900ohDAFUBUSG CARDIOLOGYQRS Xqohdoka882ibWMDAYWVV CARDIOLOGYQT Ommeaidm070ueEMZMKYNI CARDIOLOGYQTC Calculation (Bazett)491msFAIRVIEW CARDIOLOGYCalculated R Ipqf62xkbxibyQONVAANT CARDIOLOGYCalculated T Khtb08bispihnNXMXUUZV CARDIOLOGYSpecimen (Source) Anatomical Location / LateralityCollection Method / VolumeCollection Time Received Time03/12/2025 6:48 AM EDT Impressions [facility] - 03/21/2025 10:04 AM EDT Atrial flutter with varied AV block, Right bundle branch block Abnormal ECG Confirmed by MAX ZAZUETA DO ([id number]) on 03/21/2025 10:04:34 AM Narrative [facility] - 03/21/2025 10:04 AM EDT NAME : JOVANNY TORRES PID : [id number] : 1945 Gender : Male Race : ORD : Procedure Date : Mar 12 2025 06:48:46 Edit Date : Mar 21 2025 10:04:39 Diagnosis: Atrial flutter with varied AV block, Right bundle branch block Abnormal ECG Confirmed by MAX ZAZUETA DO ([id number]) on 03/21/2025 10:04:34 AM Test Reason : Location : 400 : FVEKG ??16 Overread By : MAX ZAZUETA DO Edited By : MAX ZAZUETA DO Referred By : JAY MARTIN Acquired by : NM, Authorizing ProviderResult TypeResult StatusCcf ProviderCARDIOLOGY_MEFinal ResultPerforming OrganizationAddressCity/State/ZIP CodePhone Number [facility] [address] [place] [address] * ECG COMPLETE (03/04/2025 3:37 PM EDT)ComponentValueRef RangeTest Method Analysis TimePerformed AtPathologist SignatureVentricular Idgb76RETPERXR AND VASCULAR INSTITUTEQRS Tmusfnvi161xlORLFX AND VASCULAR INSTITUTEQT Xaalicbi065 msHEART AND VASCULAR INSTITUTEQTC Calculation (Bazett)508msHEART AND VASCULAR INSTITUTECalculated R Purcell-29degreesHEART AND VASCULAR INSTITUTECalculated T Yujd08qwlholzFDWBQ AND VASCULAR INSTITUTESpecimen (Source)Anatomical Location / LateralityCollection Method / VolumeCollection TimeReceived Time03/04/2025 3:37 PM EDT Impressions [facility] - 03/04/2025 4:55 PM EDT ATRIAL FIBRILLATION WITH A COMPETING JUNCTIONAL PACEMAKER COMPLETE RIGHT BUNDLE BRANCH BLOCK ABNORMAL ECG Confirmed by GRISELDA CHENEY M.D. ([id number]) on 03/04/2025 4:55:51 PM Narrative [facility] - 03/04/2025 4:55 PM EDT NAME : JOVANNY TORRES PID : [id number] : 1945 Gender : Male Race : ORD : [id number] Procedure Date : Mar 04 2025 15:37:27 Edit Date : Mar 04 2025 16:55:54 Diagnosis: ATRIAL FIBRILLATION WITH A COMPETING JUNCTIONAL PACEMAKER COMPLETE RIGHT BUNDLE BRANCH BLOCK ABNORMAL ECG Confirmed by GRISELDA CHENEY M.D. ([id number]) on 03/04/2025 4:55:51 PM Test Reason : I48.21 Permanent atrial fibrillation (HCC) Location : 192 : AVCRD ?? Overread By : GRISELDA CHENEY M.D. Edited By : GRISELDA CHENEY M.D. Referred By : , Acquired by : , Authorizing ProviderResult TypeResult StatusTamara Mckeon SERVICE NOW DEVELOPER.CNPEKGFinal ResultPerforming OrganizationAddressCity/State/ZIP CodePhone Number [facility] [address] [place], [place] [id number] * LIPID PANEL, NONFASTING (08/09/2023 10:20 AM EST)ComponentValueRef RangeTest MethodAnalysis TimePerformed AtPathologist SignatureTotal Cholesterol, Fwkmglfpak813<200 mg/dL08/09/2023 11:28 AM [facility] LABORATORYComment: <200 mg/dL, Desirable 200-239 mg/dL, Borderline high >239 mg/dL, High Triglycerides, Rkximcmmtp17<150 mg/dL08/09/2023 11:28 [facility] LABORATORYComment: <150 mg/dL, Normal 150-199 mg/dL, Borderline high 200-499 mg/dL, High >499 mg/dL, Very high HDL Cholesterol, Lxvmmnoeun19>39 mg/dL08/09/2023 11:28 [facility] LABORATORYComment: 40-59 mg/dL, Acceptable >59 mg/dL, High: Negative risk factor for coronary heart disease <40 mg/dL, Low: Positive risk factor for coronary heart disease LDL Cholesterol Calculated, Ihfftqkwwk28<100 mg/dL08/09/2023 11:28 [facility] LABORATORYComment: <100 mg/dL, Optimal 100-129 mg/dL, Near optimal/above optimal 130-159 mg/dL, Borderline high 160-189 mg/dL, High >189 mg/dL, Very high Secondary prevention optimal LDL Cholesterol levels are recommended to be < 70 mg/dL Non HDL Cholesterol, Gkdhhbmvyu01<130 mg/dL08/09/2023 11:28 AM [facility] LABORATORYComment: <130 mg/dL, Optimal 130-159 mg/dL, Near optimal/above optimal 160-189 mg/dL, Borderline high 190-219 mg/dL, High >219 mg/dL, Very high Secondary prevention optimal non HDL Cholesterol levels are recommended to be <100 mg/dL VLDL Cholesterol, Poqnehyfje44<30 mg/dL08/09/2023 11:28 AM [facility] LABORATORYTotal Chol/HDL Ratio, Nonfasting2.67<5.10 mg/dL08/09/2023 11:28 AM [facility] LABORATORYLDL/HDL Ratio, Nonfasting1.44<2.54 mg/dL08/09/2023 11:28 AM [facility] LABORATORYComment: Reference: 1. National Cholesterol Education Program ATP III Guideline At-A-Glance Quick Desk Reference: National Heart, Lung, and Blood [place]. National Institutes of Health. 2001: NIH Publication No. 01-3305. 2. An International Atherosclerosis Society position paper: global recommendations for the management of dyslipidemia: executive summary, Atherosclerosis. 2014: 232(2):410-413. Specimen (Source)Anatomical Location / LateralityCollection Method / Volume Collection TimeReceived TimeBloodBLOOD SPECIMEN / UnknownVenipuncture / Unknown 08/09/2023 10:20 AM EST08/09/2023 10:20 AM EST Narrative Authorizing ProviderResult TypeResult StatusAlbert Mario Estrada MDLABORATORYFinal ResultPerforming OrganizationAddressCity/State/ZIP CodePhone Number [facility] [address] [place] [address], from Last 3 Months or Most Recently Relevant to Health Maintenance Insurance * Guarantor: Jovanny Torres TAccount TypeRelation to PatientDate of BirthPhoneBilling AddressPersonal/HfwvxlHoam1945 na (Home) na (Work) [address] [place] [id number] Care Teams Team MemberRelationshipSpecialtyStart DateEnd Austen Saavedra MD [address] [place] [id number] PCP - GeneralMer[facility] Centerly Medicine02/05/17
--- OUTSIDE RECORDS SUMMARY | 2025-05-28 07:52 | XMS_ITS | Clinical Summary ---
Author Organization [facility] Healthcare Address [address] [place] [address] Care Team Providers Care Tooth Cutter Clutch Name Role Phone Austen Saavedra MD Unavailable [phone] Austen Saavedra MD Primary Care Provider [phone] Mario Estrada MD, Jay Unavailable [phone] Alfred Estrada MD, Mary Unavailable [phone] Usama Stallings MD Unavailable [phone] Allergies Active AllergyReactionsCriticalityNoted QngkGyrlllozTdkvuowljosvrwdf71/21/2023 Other Reaction(s): Urinary Retention Yaxbpr5612/26/2022 Other Reaction(s): Flush Vyhloxdzkahlkiq21/21/2023 Other Reaction(s): Urinary Retention Fnihqxz8512/26/2022 Other Reaction(s): Unknown Zwwjxpnxkwygeaqf04/21/2023 Other Reaction(s): Constipated Lfqvmldcbido83/21/2023 Other Reaction(s): Unknown Medications MedicationSigDispense QuantityRefillsLast FilledStart DateEnd DateStatus Eliquis 5 MG tablet Take 5 mg by mouth in the morning and 5 mg before bedtime.11/21/2022ctive bisoprolol (Zebeta) 10 MG tablet Take 10 mg by mouth in the morning. TAKE 2 TABLETS BY MOUTH EVERY DAY Oral for 90 Days.Active omega-3 (Fish Oil) 1200 MG capsule Take 1 capsule by mouth 1 (one) time each day at the same time.Active CHELATED IRON PO Take by mouth.Active montelukast (Singulair) 10 MG tablet Indications:Mild persistent asthma without complication (HCC)Take 1 tablet (10 mg) by mouth 1 (one) time each day at the same time. 90 tablet ctive rosuvastatin (Crestor) 20 MG tablet Indications:Mixed dyslipidemiaTake 1 tablet (20 mg) by mouth at bedtime. 90 tablet ctive albuterol 108 (90 Base) MCG/ACT inhaler Inhale 2 puffs every 6 (six) hours if needed for wheezingActive albuterol (2.5 MG/3ML) 0.083% nebulizer solution Indications:Pneumonia of right lower lobe due to infectious organismTake 3 mL (2.5 mg) by nebulization in the morning and 3 mL (2.5 mg) at noon and 3 mL (2.5 mg) in the evening and 3 mL (2.5 mg) before bedtime. 360 mL 5Active Active Problems ProblemNoted DateDiagnosed DateAbdominal aortic tenubpk5204/07/2024ge-related nuclear cataract of both eyes12/26/2022ortic valve yzmbxndfs45/21/2023enign prostatic hyperplasia with lower urinary tract eroohonq38/21/2023ilateral carotid artery wfigedf1812/26/2022ilateral enlargement of atria12/26/2022ardiac rezgjl6612/26/2022hronic diastolic heart nlyrrfp8112/26/2022therosclerotic heart disease of [place] coronary artery without angina foyqslqt30/21/2023Herniation of lumbar intervertebral disc12/26/2022History of intraocular lens implant 12/26/2022Longstanding persistent atrial uldvnmjpesye87/21/2023Mild persistent asthma without klpfualhoxri90/21/2023Mixed qzeswhrkxcjcun35/21/2023Non-rheumatic mitral duyygwahkcqhq41/21/2023Nonrheumatic tricuspid valve aoznjhil13/21/2023 Osteopenia of neck of right femur12/26/2022rimary osteoarthritis involving multiple elqcoc0512/26/2022ulmonary jeriefmnhodj99/21/2023Lung granuloma 12/26/2022ulmonary hoczkx3312/26/2022RBBB (right bundle branch block)12/26/2022 Vitamin D /21/2023Vitreous degeneration of right eye12/26/2022 History of lxwdlulmekuyd04/22/2021Tricuspid /22/2021 Overview (01/15/2023): History: Echo with severe TR Assessment: 06/19/2021: TVr (MC3 #32). Post-op Echo completed Plan: Daily ASA Aufszddcaatl39/04/2021Family history of coronary artery nscnhiz7105/28/2016Long term current use of anticoagulant fylozxg0705/28/2016Postinflammatory pulmonary sztxejnh08/21/2016Nuclear senile qqibjyvx16/23/2015HTN (hypertension)11/23/2013 Overview (01/15/2023): History: On Metoprolol ER 75 mg daily& Losartan 50 mg daily at home Assessment: SBP ~ 100. Plan: Continue Norvasc for radial graft - reduced to 2.5mg. Continue BB and PO lasix. Resolved Problems ProblemNoted DateDiagnosed DateResolved DateBenign essential hypertension Situational mixed anxiety and depressive oktcwjwz66/21/2023 01/02/2023djustment disorder with mixed emotional hsgzuioe28 Other specified health opvgwo20Primary osteoarthritis Statin not dfxhfbshx02hronic a-fib Overview (01/15/2023): History: S/p ablation in 2006 and 2013. Home med: warfarin and metoprolol Assessment: 06/19/2021: MAZE and LAAC. Arrived to ICU in SR, then in and out of rate controlled Afib vs Junctional rhythm. Currently in afib with intermittent uncon trolled rate. 06/29 unsuccessful DCCV Plan: Continue Eliquis and BB. Increase BB as able. Encounters DateTypeDepartmentCare YbvhTarhuimayng56/18/2025 9:00 AM ESTOffice Visit [facility] [place] [address] [place] [address] Austen Saavedra MD 05/25/2025amboo flowsheet [facility] [place] [address] [place] [address] Austen Saavedra MD 05/25/20254581Bvdtfx13/17/2064Xljgcp16/17/2025Clinisync Result Encounter [facility] External Department Unsolicited Provider, Generic External Data 05/11/2025 8:00 AM ESTOffice Visit [facility] [place] [address] [place] [address] Austen Saavedra MD Encounter for Medicare annual wellness exam (Primary Dx); Advance directive in chart; Encounter for screening for other disorder; Screening for alcohol problem; Osteopenia of neck of right femur; Screening for hencpjcyypsu60/04/2025amboo flowsheet [facility] [place] [address] [place] [address] Austen Saavedra MD 05/11/20257204Mlalks21/30/5122Srnzpx23/28/2638Izakxl40/05/2025Clinisync Result Encounter [facility] External Department Unsolicited Provider, Generic External Data 03/12/2025linisync Result Encounter [facility]OMS External Department Unsolicited Provider, Generic External Data 03/12/2025linisync Result Encounter [facility] External Department Unsolicited Provider, Generic External Data 5Clinisync Result Encounter [facility] External Department Unsolicited Provider, Generic External Data from Last 3 Months Immunizations ImmunizationAdministration DatesNext DueABRYSVO - Respiratory syncytial virus (RSV), vaccine, bivalent, protein subunit RSV prefusion F, diluent reconstituted, 0.5 mL, PF1543TYeA16/17/2025,07/10/2010DTaP, Unspecified 07/10/2010Influenza, High Dose Seasonal, Preservative Free10/15/2024,05/05/2021, 05/02/2019,05/09/2018Influenza, High-dose Seasonal, Quadrivalent, Preservative Free05/02/2019Influenza, Seasonal, Quadrivalent, Wdiwmhzoht22/09/2023,04/15/2020 Influenza, Usytmactbzl05/02/2023,05/01/2022,04/07/2021,04/07/2020,04/07/2019, 04/20/2018,04/07/2014Influenza, injectable, quadrivalent, preservative free 04/15/2020,05/09/2018,04/11/2017Influenza, seasonal, mhdwyclggy48/17/2025 Influenza, seasonal, injectable, preservative free04/18/2015Influenza, seasonal, intradermal, preservative free03/31/2012Moderna Bivalent Booster Vaccination 05/01/2022Moderna SARS-CoV-2 Akvavmnnpou63/05/2021,08/12/2020Novel yvmuhcvvs-I6M9-92, preservative-free08/24/2009Pneumococcal Conjugate PCV 13 10/10/2015Pneumococcal Polysaccharide BBLT9480,09/27/2014,04/07/2014 Pneumococcal, Xhbppbtvlyb41/01/5732Xtug96/12/2022,07/08/2010Zoster, Recombinant 12/14/2017,10/22/2017Zoster, live12/24/2017,10/25/2017,09/14/2014 Family History Medical HistoryRelationNameCommentsHypertensionFatherHaroldLung cancerFather HaroldCancerMaternal GrandfatherMotherStrokeSisterVirginiaRelationNameStatus CommentsDaughterAlive1 daughterFatherHaroldDeceasedMaternal GrandfatherMother SisterVirginiaDeceased1 sisterSonAlive1 son Social History Tobacco UseTypesPacks/DayYears UsedDateSmoking Tobacco: NeverSmokeless Tobacco: Never Tobacco Cessation:Counseling Given: Yes Alcohol UseStandard Drinks/WeekCommentsNot Currently0 (1 standard drink = 0.6 oz pure alcohol)Caffeine intake: 3 cups decaf per dayHumiliation, Afraid, Rape, and Kick questionnaireAnswerDate RecordedWithin the last year, have you been afraid of your partner or ex-partner?No04/12/2023Within the last year, have you been humiliated or emotionally abused in other ways by your partner or ex-partner?No 04/12/2023Within the last year, have you been kicked, hit, slapped, or otherwise physically hurt by your partner or ex-partner?No04/12/2023Within the last year, have you been raped or forced to have any kind of sexual activity by your part ner or ex-partner?No04/12/2023Social Connection and Isolation PanelAnswerDate RecordedIn a typical week, how many times do you talk on the phone with family, friends, or neighbors?More than three times a week06/23/2024How often do you get together with friends or relatives?More than three times a week06/23/2024How often do you attend adventist or methodist services?More than 4 times per year 06/23/2024ctive Member of Clubs or OrganizationsNot on file06/23/2024ttends Club or Organization MeetingsNot on file06/23/2024Marital StatusNot on file 06/23/2024UDIT-CAnswerDate RecordedQ1: How often do you have a [...] housing, medical care, and heating?Not hard at all 04/12/2023HQ-2AnswerDate RecordedPatient Health Questionnaire-2 Score0 05/25/2025[facility] [place] of Occupational Health - Occupational Stress QuestionnaireAnswerDate [...] steady place to sleep or slept in [facility] (including now)?No04/12/2023EducationAnswerDate RecordedWhat is the highest level of school you have completed or the highest degree you have received?High school wmbnfvko01/09/2023Sex and Gender InformationValueDate RecordedSex Assigned at BirthNot on fileLegal SexMale 09/19/2022 7:10 PM EDTGender IdentityNot on fileSexual OrientationNot on file OccupationIndustryJob Start DateJob End DateRetiredNot on fileNot on fileNot on file Last Filed Vital Signs Vital SignReadingTime TakenCommentsBlood Vbirmtzm305/6805/11/2025 7:58 AM EST Xkzxi782605/11/2025 7:58 AM ESTTemperature--Respiratory Rate--Oxygen Efqseffwwq46% 05/11/2025 7:58 AM ESTInhaled Oxygen Concentration--Bwhrdq73.5 kg (173 lb) 05/11/2025 7:58 AM ENTVccnha821.4 cm (6' 1 )05/11/2025 7:58 AM ESTBody Mass Index22.8211/10/2024 7:58 AM EST Plan of Treatment Health MaintenanceDue DateLast DoneCommentsMedicare Annual Wellness (AWV) 6107/11/2024, 04/07/2024, 01/02/2023, Additional history exists Pneumococcal Vaccine: 65+ XaaklZzkfbuchf93/14/2018, 10/10/2015, 09/27/2014, Additional history existsCOVID-19 AvyorsfQyxmivsxoklh30/25/2022, 05/05/2021, 09/09/2020, Additional history existsInfluenza RhhyirrVjdaswjxd99/17/2025, 10/15/2024, 05/16/2023, Additional history exists Procedures Procedure NamePriorityDate/TimeAssociated DiagnosisCommentsTB BEN - PSA APQZQKWFWGuvxdkj73/17/2025 10:28 AM EST ECG 12-LEAD03/12/2025 11:27 AM EDT [facility] BAS METAB 2000 PNL TFOHJOcolejm82/05/2025 7:06 AM EDT [facility] CBC PNL BLD ZTUYZxltpch76/05/2025 7:06 AM EDT EKG003/12/2025 6:48 AM EDT ECG 12-LEAD03/04/2025 3:37 PM EDT from Last 3 Months Results * [facility] BEN - PSA SCREENING (05/24/2025 10:28 AM EST)ComponentValueRef RangeTest MethodAnalysis TimePerformed AtPathologist SignaturePROSTATE SPECIFIC ANTIGEN SCRN1.84<=4.00 ng/mLTBHSpecimen (Source)Anatomical Location / Laterality Collection Method / VolumeCollection TimeReceived Time05/24/2025 10:28 AM EST 05/24/2025 10:34 AM EST Narrative CLINISYNC - 05/24/2025 12:12 PM EST Authorizing ProviderResult TypeResult StatusGeneric External Data Provider CLINISYNCFinal ResultPerforming OrganizationAddressCity/State/ZIP CodePhone Number CLINISYNC [facility] * ECG 12 lead (03/12/2025 11:27 AM EDT) Only the most recent of2 resultswithin the time period is included. Specimen (Source)Anatomical Location / LateralityCollection Method / Volume Collection TimeReceived Time03/12/2025 11:27 AM EDT Narrative [facility] - 03/21/2025 10:36 AM EDT Ventricular Rate : 82 BPM Atrial Rate ?: 105 ? BPM P-R Interval ? : 56 ?ms QRS Duration ? : 159 ? ms Q-T Interval ? : 437 ? ms QTC Calculation(Bazett) ?: 511 ? ms Calculated P [place] ?: 0 ? degrees Calculated R [place] ?: 48 ?degrees Calculated T [place] ?: -2 ?degrees Atrial flutter with Ventricular-paced complexes Right bundle branch block Abnormal ECG Confirmed by MAX ZAZUETA DO ([id number]) on 03/21/2025 10:36:15 AM NAME : JOVANNY TORRES PID : [id number] : 1945 ?? Gender : Male Race : ORD : [id number] ? Procedure Date : Mar 12 2025 11:27:27 Edit Date : Mar 21 2025 10:36:17 ? Diagnosis: Atrial flutter with Ventricular-paced complexes Right bundle branch block Abnormal ECG ? Confirmed by MAX ZAZUETA DO ([id number]) on 03/21/2025 10:36:15 AM ? Test Reason : Post-OP ? Location : 400 : FVEKG ??16 ? Overread By : MAX ZAZUETA DO Edited By : MAX ZAZUETA DO Referred By : JAY MARTIN Acquired by : NM, Procedure Note Radiology, Radiologist, MD - 03/21/2025 Ventricular Rate : 82 BPM Atrial Rate : 105 BPM P-R Interval : 56 ms QRS Duration : 159 ms Q-T Interval : 437 ms QTC Calculation(Bazett) : 511 ms Calculated P [place] : 0 degrees Calculated R [place] : 48 degrees Calculated T [place] : -2 degrees Atrial flutter with Ventricular-paced complexes Right bundle branch block Abnormal ECG Confirmed by MAX ZAZUETA DO ([id number]) on 03/21/2025 10:36:15 AM NAME : JOVANNY TORRES PID : [id number] : 1945 Gender : Male Race : ORD : [id number] Procedure Date : Mar 12 2025 11:27:27 [...] By : JAY MARTIN Acquired by : JENNIFER, Authorizing ProviderResult TypeResult StatusGeneric External Data ProviderECG ORDERABLESFinal ResultPerforming OrganizationAddressCity/State/ZIP CodePhone Number CCF-CLINISYNC [facility] * (ABNORMAL) [facility] CBC PNL BLD AUTO (03/12/2025 7:06 AM EDT)ComponentValueRef RangeTest MethodAnalysis TimePerformed AtPathologist SignatureCCF WBC # BLD AUTO4.583.70 - 11.00 k/uLCCFCCF RBC # BLD AUTO4.554.20 - 6.00 m/uLCCFCCF HGB BLD-MCNC13.513.0 - 17.0 g/dLCCFCCF HCT VFR BLD AUTO41.439.0 - 51.0 %CCFCCF MCV RBC AUTO91.080.0 - 100.0 fLCCFCCF MCH RBC QN AUTO29.726.0 - 34.0 pgCCFCCF MCHC RBC AUTO-MCNC32.630.5 - 36.0 g/dLCCFCCF RDW RBC-RTO13.711.5 - 15.0 %CCFCCF PLATELET # BLD XMVG823(L)150 - 400 k/uLCCFComment:No clot detected.CCF PMV BLD AUTO10.89.0 - 12.7 fLCCFCCF NRBC # BLD AUTO<0.01<0.01 k/uLCCFSpecimen (Source) Anatomical Location / LateralityCollection Method / VolumeCollection Time Received Time03/12/2025 7:06 AM EDT03/12/2025 7:42 AM EDT Narrative CLINISYNC - 03/12/2025 7:58 AM EDT Specimen Type: BLOOD SPECIMEN Ordering Facility: [facility] ?Address: [address] [place] [id number] Original Ordering Provider: JONO PEREA Authorizing ProviderResult TypeResult StatusGeneric External Data Provider CLINISYNCFinal ResultPerforming OrganizationAddressCity/State/ZIP CodePhone Number CLINISYNC [facility] [address] [place] [address] * (ABNORMAL) [facility] BAS METAB 2000 PNL SERPL (03/12/2025 7:06 AM EDT)ComponentValue Ref RangeTest MethodAnalysis TimePerformed AtPathologist SignatureCCF GLUCOSE SERPL-LYKY7063 - 99 mg/dLCCFComment: The [place] Diabetes Association (ADA) provides guidance for cutoff [...] Standards of Medical Care in Diabetes 2016, [place] [employer] Association. Diabetes Care. 2016.39(Suppl 1). [facility] BUN SERPL-MCNC29(H)9 - 24 mg/dLCCFCCF CREAT SERPL-MCNC0.940.73 - 1.22 mg/dL CCFCCF SODIUM SERPL-EKIJ250710 - 144 mmol/LCCFCCF POTASSIUM SERPL-SCNC4.63.7 - 5.1 mmol/LCCFCCF CHLORIDE SERPL-YHFX03236 - 107 mmol/LCCFCCF CO2 SERPL-CIKY7440 - 30 mmol/LCCFCCF ANION GAP SERPL-MBDI230 - 15 mmol/LCCFCCF CALCIUM SERPL-MCNC 9.68.5 - 10.2 mg/dLCCFEGFRCR SERPLBLD CKD-EPI 868119>=60 mL/min/1.73m???CCF Comment:Estimated Glomerular Filtration Rate (eGFR) is calculated using the 2020 CKD-EPI creatinine equation. This equation utilizes serum creatinine, sex, and age as parameters. The creatinine assay has traceable calibration to isotope dilution-mass spectrometry. Refer to KDIGO guidelines for clinical inte rpretation. In patients with unstable renal function, e.g. those with acute kidney injury, the eGFRmay not accurately reflect actual GFR.Specimen (Source) Anatomical Location / LateralityCollection Method / VolumeCollection Time Received Time03/12/2025 7:06 AM EDT03/12/2025 7:53 AM EDT Narrative CLINISYNC - 03/12/2025 8:36 AM EDT Specimen Type: BLOOD SPECIMEN Ordering Facility: [facility] ?Address: [address] [place] [address] Original Ordering Provider: JONO PEREA Authorizing ProviderResult TypeResult StatusGeneric External Data Provider CLINISYNCFinal ResultPerforming OrganizationAddressCity/State/ZIP CodePhone Number CLINISYRI [facility] [address] [place] [address] * EKG (03/12/2025 6:48 AM EDT)Anatomical RegionLateralityModalityOtherSpecimen (Source)Anatomical Location / LateralityCollection Method / VolumeCollection TimeReceived Time03/12/2025 6:48 AM EDT Narrative 03/21/2025 10:04 AM EDT Ventricular Rate : 75 BPM Atrial Rate ?: 231 ? BPM P-R Interval ? : 262 ? ms QRS Duration ? : 159 ? ms Q-T Interval ? : 439 ? ms QTC Calculation(Bazett) ?: 491 ? ms Calculated R [place] ?: 45 ?degrees Calculated T [place] ?: 18 ?degrees Atrial flutter with varied AV block, Right bundle branch block Abnormal ECG Confirmed by MAX ZAZUETA DO ([id number]) on 03/21/2025 10:04:34 AM NAME : JOVANNY TORRES PID : [id number] : 1945 ?? Gender : Male Race : ORD : ? Procedure Date : Mar 12 2025 06:48:46 Edit Date : Mar 21 2025 10:04:39 ? Diagnosis: Atrial flutter with varied AV block, Right bundle branch block Abnormal ECG ? Confirmed by MAX ZAZUETA DO ([id number]) on 03/21/2025 10:04:34 AM ? Test Reason : ? Location : 400 : [facility] ??16 ? Overread By : MAX ZAZUETA DO Edited By : MAX ZAZUETA DO Referred By : JAY MARTIN Acquired by : NM, Procedure Note Radiology, Radiologist, MD - 03/21/2025 Ventricular Rate : 75 BPM Atrial Rate : 231 BPM P-R Interval : 262 ms QRS Duration : 159 ms Q-T Interval : 439 ms QTC Calculation(Bazett) : 491 ms Calculated R [place] : 45 degrees Calculated T [place] : 18 degrees Atrial flutter with varied AV block, Right bundle branch block Abnormal ECG Confirmed by MAX ZAZUETA DO ([id number]) on 03/21/2025 10:04:34 AM NAME : JOVANNY TORRES PID : [id number] : 1945 Gender : Male Race : ORD : Procedure Date : Mar 12 2025 06:48:46 Edit Date : Mar 21 2025 10:04:39 Diagnosis: Atrial flutter with varied AV block, Right bundle branch block Abnormal ECG Confirmed by MAX ZAZUETA DO ([id number]) on 03/21/2025 10:04:34 AM Test Reason : Location : 400 : EKG 16 Overread By : MAX ZAZUETA DO Edited By : MAX ZAZUETA DO Referred By : JAY MARTIN Acquired by : JENNIFER, Authorizing ProviderResult TypeResult StatusGeneric External Data Provider CLINISYNC IMAGINGFinal Result from Last 3 [place] [address] Advance Directives TypeDate RecordedPatient RepresentativeExplanationPower of Attorney01/02/2023 1:48 PMAdvance Directives and Living [id number] Power Of Rod Straightener Power of Attorney12/11/2021 11:29 AM Care Teams Team MemberRelationshipSpecialtyStart DateEnd Date Austen Saavedra MD [address] [place] [address] PCP - ACO Reach11/29/22 Austen Saavedra MD [address] [place] [address] PCP - GeneralFamily Medicine02/01/25 [place] [address] [place] [address] Referring PhysicianCardiology03/31/25 Mary Simon MD [address] [place] [address] Referring PhysicianOphthalmology03/31/25 Usama Stallings MD [address] [place] [address] Referring PhysicianOptometry03/31/25
--- OUTSIDE RECORDS SUMMARY | 2025-05-28 07:52 | XMS_ITS | Encounter Summary ---
Author Organization [facility] Address [address] [place] [address] Care Team Providers Care Red Cap Name Role Phone Austen Saavedra MD Unavailable [phone] Austen Saavedra MD Primary Care Provider [phone] Mario Estrada MD, Jay Unavailable [phone] Alfred Estrada MD, Mary Unavailable [phone] Usama Stallings MD Unavailable [phone] Encounter Details DateTypeDepartmentCare Team (Latest Contact Info)Uwzzhmosgbc21/18/2025amboo flowsheet [facility] [place] [address] Family Medicine [address] [place] [id number] Austen Saavedra MD [address] [facility] [address] [place] [address] Social History Tobacco UseTypesPacks/DayYears UsedDateSmoking Tobacco: NeverSmokeless [...] a week 06/23/2024How often do you attend pentecostalism or taoist services?More than 4 times per year06/23/2024ctive Member [...] all04/12/2023HQ-2AnswerDate RecordedPatient Health Questionnaire-2 Score0 05/25/2025Finen[facility] [place] of Occupational Health - Occupational Stress QuestionnaireAnswerDate [...] the highest degree you have received?High school vwercmhq61/09/2023Sex and Gender InformationValueDate RecordedSex Assigned at BirthNot [...] MemberRelationshipSpecialtyStart DateEnd Date Austen Saavedra MD [address] [address] PCP - ACO Reach11/29/22 Austen Saavedra MD [address] [place] [address] PCP - GeneralFamily Medicine02/01/25 [place] [address] [place] [address] Referring PhysicianCardiology03/31/25 Mary Simon MD [address] [place], [place] [address] Referring PhysicianOphthalmology03/31/25 Usama Stallings MD [address] [place] [address] Referring PhysicianOptometry03/31/25documented as of this encounter
--- OUTSIDE RECORDS SUMMARY | 2025-05-28 07:52 | XMS_ITS | Encounter Summary ---
Author Organization [facility] Address [address] [place] [address] Care Team Providers Care Ice Cream Chef Name Role Phone Austen Saavedra MD Unavailable [phone] Austen Saavedra MD Primary Care Provider [phone] Mario Estrada MD, Jay Unavailable [phone] Alfred Estrada MD, Mary Unavailable [phone] Usama Stallings MD Unavailable [phone] Encounter Details DateTypeDepartmentCare Team (Latest Contact Info)Pxgvjsksuyq35/17/2025Travel Social History Tobacco UseTypesPacks/DayYears UsedDateSmoking Tobacco: NeverSmokeless [...] a week 06/23/2024How often do you attend restorationism or yarsani services?More than 4 times per year06/23/2024ctive Member [...] hard at all04/12/2023HQ-2AnswerDate RecordedPatient Health Questionnaire-2 Score0 05/25/2025[facility] [place] of Occupational Health - Occupational Stress QuestionnaireAnswerDate [...] the highest degree you have received?High school yuvdbtja99/09/2023Sex and Gender InformationValueDate RecordedSex Assigned at BirthNot [...] MemberRelationshipSpecialtyStart DateEnd Date Austen Saavedra MD [address] [facility] [address] [place] [address] (Fax) PCP - ACO [facility]11/29/22 Austen Saavedra MD [address] [address] (Fax) PCP - GeneralFamily [facility]02/01/25 [place] [address] [place] [address] Referring PhysicianCardiology03/31/25 Mary Simon MD [address] [place] [address] Referring PhysicianOphthalmology03/31/25 Usama Stallings MD [address] [place] [address] Referring PhysicianOptometry03/31/25documented as of this encounter
--- OUTSIDE RECORDS SUMMARY | 2025-05-28 07:52 | XMS_ITS | Clinical Summary ---
Author Organization [facility] Address [address] [facility] [place] [address] Phone Care Team Providers Care Auxiliary Engineer Name Role Phone Unavailable Primary Care Provider Unavailabl e Social History Tobacco UseTypesPacks/DayYears UsedDateSmoking Tobacco: Never AssessedSex and Gender InformationValueDate RecordedSex Assigned at BirthNot on fileLegal Sex Male06/02/2022 1:51 PM ESTGender IdentityNot on fileSexual OrientationNot on file Plan of Treatment Not on file
--- OUTSIDE RECORDS SUMMARY | 2025-05-28 07:52 | XMS_ITS | Encounter Summary ---
Author Organization [facility] Address [address] [place] [address] Care Team Providers Care Steward/Stewardess Second Class Name Role Phone Austen Saavedra MD Unavailable [phone] Austen Saavedra MD Primary Care Provider [phone] Mario Estrada MD, Jay Unavailable [phone] Alfred Estrada MD, Mary Unavailable [phone] Usama Stallings MD Unavailable [phone] Encounter Details DateTypeDepartmentCare Team (Latest Contact Info)Vmlmlivljrh86/18/2025Travel Social History Tobacco UseTypesPacks/DayYears UsedDateSmoking Tobacco: NeverSmokeless [...] a week 06/23/2024How often do you attend amish or restorationist services?More than 4 times per year06/23/2024ctive Member [...] hard at all04/12/2023HQ-2AnswerDate RecordedPatient Health Questionnaire-2 Score0 05/25/2025[facility] [place] [facility] - Occupational Stress QuestionnaireAnswerDate [...] the highest degree you have received?High school uatrdnmo63/09/2023Sex and Gender InformationValueDate RecordedSex Assigned at BirthNot [...] depressed, or hopelessNot at all05/25/2025 10:43 AM Joleen Huang [facility]-2 Ehbni72207/25/2024 10:43 AM Joleen Huang MA documented as of this encounter Plan of Treatment Not on file documented as of this encounter Visit Diagnoses Not on filedocumented in this encounter Additional Health Concerns AssessmentNoted TimePHQ-9 Depression Total Score: 9:00 AM EDT documented as of this encounter Care Teams Team MemberRelationshipSpecialtyStart DateEnd Date Austen Saavedra MD [address] [place] [address] PCP - ACO Reach11/29/22 Austen Saavedra MD [address] [place], [place] [id number] PCP - GeneralFamily Medicine02/01/25 [place] [address] [place] [address] Referring PhysicianCardiology03/31/25 Mary Simon MD [address] [place], [place] [id number] Referring PhysicianOphthalmology03/31/25 Usama Stallings MD [address] [place] [address] Referring PhysicianOptometry03/31/25documented as of this encounter
== END 2025-05-28 07:48 | disposition home or self-care (01) ==
LOC: RAD 07:47
PROVIDERS: PCP Family Medicine; Visit Provider Family Medicine
DX: M85.851 Other specified disorders of bone density and structure, right thigh (principal); Z13.820 Encounter for screening for osteoporosis
CPT/HCPCS: 77080